=== PATIENT | female | born 1960 | race Caucasian/White ===

== ENCOUNTER 2021-01-31 17:36 | Inpatient (IN) | payer OTHER ==
[2021-01-31 18:55] LABS: ALT 22 U/L (4-34); AST 27 U/L (14-36); African American GFR (CKD) >90 (>60 ml/min/1.73 sqM); Albumin 4.5 g/dL (3.5-5.0); Alkaline Phosphatase 131 U/L (38-126); Anion Gap 13 mmol/L; Blood Urea Nitrogen 19 mg/dL (7-17); Calcium 9.8 mg/dL (8.4-10.2); Carbon Dioxide 22 mmol/L (22-30); Chloride 102 mmol/L (98-107); Glucose 182 mg/dL (74-99); Non-African American GFR(CKD) >90 (>60 ml/min/1.73 sqM); Potassium 4.1 mmol/L (3.5-5.1); Sodium 137 mmol/L (137-145); Total Bilirubin 0.5 mg/dL (0.2-1.3); Total Protein 8.1 g/dL (6.3-8.2)
[2021-01-31 18:59] LABS: HGB 14.8 gm/dL (11.4-16.0); MCH 28.3 pg (25.0-35.0); MCHC 33.6 g/dL (31.0-37.0); MCV 84.1 fL (80.0-100.0); Mean Platelet Volume 7.7; Platelet Count 315 k/uL (150-450); RBC 5.23 m/uL (3.80-5.40); RDW 14.8 % (11.5-15.5); WBC 25.2 k/uL (3.8-10.6)
[2021-01-31] MEDS ORDERED: SODIUM CHLORIDE 0.9% 1,000 ML IV STA (20:29)
[2021-01-31] MEDS ORDERED: IBUPROFEN 600 MG TAB PO STA (20:29)
[2021-01-31] MEDS ORDERED: ACETAMINOPHEN TAB 325 MG TAB PO STA (20:29)
[2021-01-31] MEDS ORDERED: DIPH,PERTUS(ACELL)TETVAC-LF 0.5 ML VIAL IM ONE (20:32)
--- NOTE | 2021-01-31 20:39 | ED ---
General Adult HPI - General Chief complaint: Headache Stated complaint: head pain, possible seizure Time Seen by Provider: 01/31/21 20:22 Source: patient, family, RN notes reviewed, old records reviewed Mode of arrival: ambulatory Limitations: no limitations - History of Present Illness Initial comments: 61-year-old female, alert and oriented 4, presents to the emergency room with complaints of 3 days of right-sided occipital parietal headache. She also states that she stepped on a stick in the yard yesterday and now has redness and drainage from the left foot. She has a low-grade fever today. She is a ylx-[id number]-xhnkfqypy diabetic. Family at bedside states that she was supposed to have cervical neck surgery in [place] but now lives in [place]. She did have lumbar sacral spine surgery 6 months ago. No complications. -: days(s) (3) Location: head (Right parietal/occipital) Radiation: non-radiation Severity scale (1-10): 8 Quality: stabbing, sharp Consistency: constant Improves with: none Worsens with: none Associated Symptoms: fever/chills, other (cellulitis left foot) Treatments Prior to Arrival: none - Related Data Allergies Allergy/AdvReac Type Severity Reaction Status Date / Time No Known Allergies Allergy Verified 01/31/21 18:03 Review of Systems ROS Statement: Those systems with pertinent positive or pertinent negative responses have been documented in the HPI. ROS Other: All systems not noted in ROS Statement are negative. Past Medical History Past Medical History: Diabetes Mellitus History of Any Multi-Drug Resistant Organisms: None Reported Additional Past Surgical History / Comment(s): Back surgey Past Psychological History: No Psychological Hx Reported Smoking Status: Never smoker Past Alcohol Use History: None Reported Past Drug Use History: None Reported General Exam Limitations: no limitations General appearance: alert, in no apparent distress Head exam: Present: atraumatic, normocephalic, normal inspection Eye exam: Present: normal appearance, PERRL, EOMI. Absent: scleral icterus, conjunctival injection, periorbital swelling ENT exam: Present: normal exam, normal oropharynx, mucous membranes moist, other ([place] wears hearing aid) Neck exam: Present: normal inspection, full ROM. Absent: tenderness, meningismus, lymphadenopathy Respiratory exam: Present: normal lung sounds bilaterally. Absent: respiratory distress, wheezes, rales, rhonchi, stridor Cardiovascular Exam: Present: tachycardia GI/Abdominal exam: Present: soft, normal bowel sounds. Absent: distended, tenderness, guarding, rebound, rigid Left Foot/Toe exam: Present: tenderness, swelling, erythema, puncture wound (Purulent drainage under third and fourth toes) Neurovascular tendon exam: Present: no vascular compromise. Absent: abnormal cap refill, extremity cold to touch Back exam: Present: normal inspection. Absent: CVA tenderness (R), CVA tend erness (L), muscle spasm, paraspinal tenderness, rash noted Neurological exam: Present: alert, oriented X3, CN II-XII intact Psychiatric exam: Present: anxious Skin exam: Present: warm, dry, intact, normal color. Absent: rash, cyanosis, diaphoretic, petechiae, pallor Course Vital Signs 01/31/21 17:57 Temperature 100.5 F H Pulse Rate 127 H Respiratory 18 Rate Blood Pressure 126/59 O2 Sat by Pulse 98 Oximetry EKG Findings - EKG Results: EKG: sinus rhythm EKG shows: tachycardia (Ventricular rate of 120, CT interval 0.138, QRS of 0.72, QTC 0.486) Medical Decision Making - Medical Decision Making Patient stepped on a stick outside yesterday and has developed a cellulitis with purulent drainage to the left foot. She has a white count of 25 and a temperature of 100.5. This is likely related to the infection. She was given abx and her tetanus was updated. She also is complaining of a headache which she has had in the past. She states that she is due to have a cervical surgery. She does have history of lumbar back surgery in [place]. She has just moved here and does not have a primary care doctor. She'll be admitted to the hospital. Case discussed with Dr. Lopez. - Lab Data Result diagrams: 01/31/21 18:42 01/31/21 18:42 Lab Results 01/31/21 01/31/21 Range/Units 18:42 18:42 WBC 25.2 H (3.8-10.6) k/uL RBC 5.23 (3.80-5.40) m/uL Hgb 14.8 (11.4-16.0) gm/dL Hct 44.0 (34.0-46.0) % MCV 84.1 (80.0-100.0) fL MCH 28.3 (25.0-35.0) pg MCHC 33.6 (31.0-37.0) g/dL RDW 14.8 (11.5-15.5) % Plt Count 315 (150-450) k/uL MPV 7.7 Sodium 137 (137-145) mmol/L Potassium 4.1 (3.5-5.1) mmol/L Chloride 102 (98-107) mmol/L Carbon Dioxide 22 (22-30) mmol/L Anion Gap 13 mmol/L BUN 19 H (7-17) mg/dL Creatinine 0.70 (0.52-1.04) mg/dL Est GFR (CKD-EPI)AfAm >90 (>60 ml/min/1.73 sqM) Est GFR (CKD-EPI)NonAf >90 (>60 ml/min/1.73 sqM) Glucose 182 H (74-99) mg/dL Calcium 9.8 (8.4-10.2) mg/dL Total Bilirubin 0.5 (0.2-1.3) mg/dL AST 27 (14-36) U/L ALT 22 (4-34) U/L Alkaline Phosphatase 131 H (38-126) U/L Total Protein 8.1 (6.3-8.2) g/dL Albumin 4.5 (3.5-5.0) g/dL Disposition Clinical Impression: Cellulitis, Headache Disposition: ADMITTED IP TO THIS [facility] Condition: Fair Referrals: None,Stated [Primary Care Provider] - 1-2 days Decision Date: 01/31/21 Decision Time: 21:29
[2021-01-31] MEDS ORDERED: cefTRIAXone IN SWFI 1,000 MG/10 ML SYRINGE IVP STA (20:41)
[2021-01-31] MEDS ORDERED: VANCOMYCIN IV PER PHARMACY 1 EACH MISC MISCELLANE PRN (21:36)
[2021-01-31] MEDS ORDERED: PIPERACILLIN-TAZOBACTAM 3.375 GM in SODIUM CHLORIDE 0.9% 100 ML IVPB STA (21:36)
[2021-01-31] MEDS ORDERED: NALOXONE 0.4 MG/ML 1 ML VIAL IV PRN (21:38)
[2021-01-31 21:40] LABS: Appearance,Urine Clear (Clear); Bilirubin,Urine Negative (Negative); Blood,Urine Negative (Negative); Color,Urine Light Yellow; Glucose,Urine (UA) 4+ (Negative); Ketones,Urine Negative (Negative); Leukocyte Esterase,Urine Negative (Negative); Mucus,Urine Rare /hpf; Nitrite,Urine Positive (Negative); Protein,Urine Trace (Negative); RBC,Urine 1 /hpf (0-5); Specific Gravity,Urine 1.037 (1.001-1.035); Squamous Epithelial Cell,Urine 1 /hpf (0-4); Urobilinogen,Urine <2.0 mg/dL (<2.0); WBC,Urine 3 /hpf (0-5)
[2021-01-31] MEDS ORDERED: VANCOMYCIN 1,500 MG in SODIUM CHLORIDE 0.9% 250 ML IVPB ONE (21:45)
[2021-01-31] MEDS: SODIUM CHLORIDE 0.9% 1,000 ML IV SCH (22:39)
--- NOTE | 2021-01-31 22:46 | XR ---
EXAMINATION TYPE: XR foot limited LT DATE OF EXAM: 01/31/2021 COMPARISON: NONE HISTORY: Cellulitis TECHNIQUE: 2 views FINDINGS: Metatarsals appear intact. There is deformity of the fifth metatarsal related to old healed fracture. There is some deformity also at the base of the proximal phalanx of the little toe consist ent with an old injury. I see no acute fracture nor dislocation. There is moderate plantar and Achill es calcaneal spurring. There is mild hammertoe deformities. There is some soft tissue swelling of the forefoot. IMPRESSION: Mild soft tissue swelling. Calcaneal spurring. No acute bony abnormality. No sign of oste omyelitis.
[2021-01-31] MEDS ORDERED: MORPHINE SULFATE 4 MG/ML SYRINGE IVP STA (22:53)
--- NOTE | 2021-02-01 00:56 | P.HPIM ---
History of Present Illness H&P Date: 01/31/21 Chief Complaint: left foot swelling and bleeding 61-year-old female with diabetes mellitus. Patient is very hard of hearing and seems to have some pressured speech is little hard to understand however I believe we had a good interview where we covered all her concerns. she recently moved to [place] to stay with her new boyfriend. she has not established medical care. her main complaint are two folds, new headache, right sided, throbbing in nature, denies history of similar headaches, or migraines. started about 3 days ago , ranging in severity from 5-8/10, at the peak of severity she feels her vision gets blurry but denies any other focal neuro deficits. she does have chronic right thenar muscle numbness from carpal tunnel or cyst in the area. otherwise, denies any acute hearing changes, nausea or vomiting, or any other focal neuro deficits. her headaches are so severe, its associated with photophobia, and she feels better when she closes her eyes, she took only tylenols and ibuprofen for it with little help , again never experienced anything similar in the past, denies any history of intracranial pathology except for possible remote "Mild" stroke with no residual deficits she is diabetic, and she got some peripheral neuropathy in her bilateral feet, she was wearing an open shoes walking outside, I could not understand the exact circumstances of where she was ,but she believes a piece of wood or some kind of small stick migh have punctured through her shows and injured the base of her 4th toe, she did not feel it at the time, but after walking inside she noticed bleeding from her toe, she cleaned it , but next day (today ) she woke up to sw elling and erythema of the left foot extending all the way to the ankle , she feels a little pain due to her neuropathy . she reports subjective fever. she also reports some urinary symptoms of frequency and incomplete emptying of her bladder, denies any dysuria or hematuria , but does notice that when she pees only small amount comes out, and she has to go frequently to the bathroom , this has been going on for couple days, mild lower abd discomfort , no new flank pain ,. in the ED workup showed, elevated WBC, fever, LA normal , UA positive for nitrites, foot xray no georges deformity she denies any respiratory symptoms , URI , GI bleed, changes in her bowel habits. Review of Systems Pertinent positives as noted in HPI. All other systems were reviewed and are negative Past Medical History Past Medical History: Diabetes Mellitus History of Any Multi-Drug Resistant Organisms: None Reported Additional Past Surgical History / Comment(s): Back surgey Past Psychological History: No Psychological Hx Reported Smoking Status: Never smoker Past Alcohol Use History: None Reported Past Drug Use History: None Reported - Past Family History family Family Medical History: No Reported History Medications and Allergies Home Medications Medication Instructions Recorded Confirmed Type Alendronate (Unknown Dose) 1 tab PO DIRECTED 01/31/21 01/31/21 History Lantus (Unknown) 1 dose SQ DIRECTED 01/31/21 01/31/21 History metFORMIN HCL [Glucophage] 1,000 mg PO DIRECTED 01/31/21 01/31/21 History Allergies Allergy/AdvReac Type Severity Reaction Status Date / Time No Known Allergies Allergy Verified 01/31/21 18:03 Physical Exam Vitals: Vital Signs Temp Pulse Resp BP Pulse Ox 01/31/21 17:57 100.5 F H 127 H 18 126/59 98 Intake and Output 01/31/21 01/31/21 02/01/21 14:59 22:59 06:59 Other: Weight 81.647 kg Constitutional: No acute distress, conversant, pleasant, hard of hearing, some pressured speech hard to understand at times. Eyes: Anicteric sclerae, moist conjunctiva, Pupils equal round reactive to light ENMT: NC/AT Oropharynx clear, no erythema, or exudates, dry mucus membranes Neck: Supple, no masses, or JVD, no neck stiffness No carotid bruits No thyromegaly Lungs: Clear to auscultation Clear to percussion Normal respiratory effort, no accessory muscle use Cardiovascular: Heart regular in rate and rhythm, soft systolic murmurs, no gallops, or rubs No peripheral edema Abdominal: Soft discomfort to deep palpation of suprapubic region , no guarding, rebound or rigidity Abdomen moving with respiration Normoactive bowel sounds No hepatomegaly, No splenomegaly No palpable mass No abdominal wall hernia noted Skin: swelling and erythema of the left foot to the ankle , tenderness to deep palpation , dried blood at the base of the 4th left toe, could not for sure identify puncture site. no active drainage at this time . Extremities: No digital cyanosis No clubbing Pedal pulses intact and symmetrical Radial pulses intact and symmetrical No calf tenderness Psychiatric: Alert and oriented to person, place and time Appropriate affect fair judgement Neuro Muscles Strength 4/5 in all 4 extremities Sensation to light touch grossly present throughout, some decrease sens ation over bilateral feet Cranial nerves II-XII grossly intact No focal sensory deficits Lymphatics: no palpable cervical or supraclavicular , or inguinal lymph nodes Results CBC & Chem 7: 01/31/21 18:42 01/31/21 18:42 Labs: Abnormal Lab Results - Last 24 Hours (Table) 01/31/21 01/31/21 01/31/21 Range/Units 18:42 18:42 20:54 WBC 25.2 H (3.8-10.6) k/uL BUN 19 H (7-17) mg/dL Glucose 182 H (74-99) mg/dL Alkaline Phosphatase 131 H (38-126) U/L Ur Specific [place] 1.037 H (1.001-1.035) Urine Protein Trace H (Negative) Urine Glucose (UA) 4+ H (Negative) Urine Nitrite Positive H (Negative) Urine Mucus Rare H (None) /hpf Assessment and Plan Assessment: sepsis puncture wound possibly through shoes, to left foot, in diabetic patient blood cultures NSAIDs for pain and swelling once intracranial pathology ruled out with CT brain vanco and zosyn xray of foot no georges patholgy or foreign bodies check ESR, CRP IVF hydaration ID consultation UTI follow up cultures , antibiotics as above new onset headache with blurry vision neuro check s CT brain without contrast , if no acute pathology then will continue with pain control and neuro checks patient does have chronic cervical spine pathology and pain , with planned surgery in the past follow up labs full code DVT PPx mechanical Discussed with: Patient, ER, RN Anticipated length of stay > than [address]: home A total of 75 minutes was spent on the care of this complex patient more than 50% of the time was spent in counseling and care coordination.
--- NOTE | 2021-02-01 02:24 | CT ---
EXAMINATION TYPE: CT brain wo con DATE OF EXAM: 02/01/2021 COMPARISON: None HISTORY: new onset headache with blurry vision CT DLP: 1090.4 mGycm Automated exposure control for dose reduction was used. Ventricles and sulci appear normal. There is no mass effect nor midline shift. There is no sign of in tracranial hemorrhage. Calvarium is intact. Skull base is intact. There is no evidence of cerebral ed marissa. IMPRESSION: Negative unenhanced head CT scan.
[2021-02-01] MEDS ORDERED: PIPERACILLIN-TAZOBACTAM 3.375 GM in SODIUM CHLORIDE 0.9% 100 ML IVPB SCH (08:00)
[2021-02-01] MEDS: VANCOMYCIN 1,500 MG in SODIUM CHLORIDE 0.9% 250 ML IVPB SCH ×3 (08:05→22:19)
[2021-02-01] MEDS: SODIUM CHLORIDE 0.9% 1,000 ML IV SCH ×2 (08:12→12:33)
[2021-02-01] MEDS: ACETAMINOPHEN TAB 325 MG TAB PO PRN ×3 (09:15→22:30)
[2021-02-01 09:26] LABS: HCT 40.3 % (37.2-46.3); HGB 12.6 g/dL (12.0-15.0); MCH 26.7 pg (27.0-32.0); MCHC 31.3 g/dL (32.0-37.0); MCV 85.4 fL (80.0-97.0); Mean Platelet Volume 10.1 fL (9.5-12.2); Platelet Count 286 X 10*3/uL (140-440); RBC 4.72 X 10*6/uL (4.10-5.20); RDW 14.5 % (11.5-14.5); WBC 20.97 X 10*3/uL (4.50-10.00)
[2021-02-01 10:03] LABS: African American GFR (CKD) 93.5 (60.0-200.0); Albumin 3.6 g/dL (3.80-4.90); Albumin/Globulin Ratio 1.38 (1.60-3.17); Anion Gap 9.8 mmol/L (4.00-12.00); Calcium 8.3 mg/dL (8.7-10.3); Carbon Dioxide 24.2 mmol/L (21.6-31.8); Globulin 2.6 g/dL (1.6-3.3); Non-African American GFR(CKD) 80.7 (60.0-200.0); Total Bilirubin 0.5 mg/dL (0.2-1.2); Total Protein 6.2 g/dL (6.2-8.2)
[2021-02-01] MEDS ORDERED: KETOROLAC 15 MG/ML 1 ML VIAL IVP STA (10:45)
[2021-02-01] MEDS ORDERED: ONDANSETRON 4 MG/2 ML VIAL IVP PRN (10:51)
--- NOTE | 2021-02-01 10:51 | P.PN ---
Subjective Progress Note Date: 02/01/21 Patient was seen and evaluated by me this morning. Her main concern this morning was headache mostly in the frontal area. She denies any vision change. She said that her headache is not improved compared to yesterday. Patient denies any history of migraine headache. No nausea or vomiting at this time. No vision change. Objective - Vital Signs Vital signs: Vital Signs Temp 97.8 F 02/01/21 03:00 Pulse 80 02/01/21 06:13 Resp 18 02/01/21 06:13 BP 114/64 02/01/21 06:13 Pulse Ox 97 02/01/21 06:13 Intake & Output 01/31/21 02/01/21 02/01/21 18:59 06:59 18:59 Weight 81.647 kg - Exam General: The patient is awake and alert, in no distress Eye: there is normal conjunctiva bilaterally. Neck: The neck is supple, there is no JVD. Cardiovascular: Normal S1-S2, no S3-S4, no murmurs. Respiratory: Lungs clear to auscultation bilaterally Gastrointestinal: Abdomen is soft, nontender Musculoskeletal: There is no pedal edema. Left foot appears swollen to the ankle. There is a puncture wound on the fourth toe on the plantar aspect. Neurological:. Speech is normal. Skin: Skin is warm and dry - Labs CBC & Chem 7: 02/01/21 04:34 02/01/21 04:34 Labs: Abnormal Lab Results - Last 24 Hours (Table) 01/31/21 01/31/21 01/31/21 Range/Units 18:42 18:42 18:42 WBC 25.2 H (3.8-10.6) k/uL MCH (27.0-32.0) pg MCHC (32.0-37.0) g/dL ESR 42 H (0-20) mm/hr BUN 19 H (7-17) mg/dL Glucose 182 H (74-99) mg/dL Calcium (8.7-10.3) mg/dL Alkaline Phosphatase 131 H (38-126) U/L C-Reactive Protein (<1.0) mg/dL Albumin (3.80-4.90) g/dL Albumin/Globulin Ratio (1.60-3.17) g/dL Ur Specific [place] (1.001-1.035) Urine Protein (Negative) Urine Glucose (UA) (Negative) Urine Nitrite (Negative) Urine Mucus (None) /hpf 01/31/21 01/31/21 02/01/21 Range/Units 18:42 20:54 04:34 WBC 20.97 H (3.8-10.6) k/uL MCH 26.7 L (27.0-32.0) pg MCHC 31.3 L (32.0-37.0) g/dL ESR (0-20) mm/hr BUN (7-17) mg/dL Glucose (74-99) mg/dL Calcium (8.7-10.3) mg/dL Alkaline Phosphatase (38-126) U/L C-Reactive Protein 19.0 H (<1.0) mg/dL Albumin (3.80-4.90) g/dL Albumin/Globulin Ratio (1.60-3.17) g/dL Ur Specific [place] 1.037 H (1.001-1.035) Urine Protein Trace H (Negative) Urine Glucose (UA) 4+ H (Negative) Urine Nitrite Positive H (Negative) Urine Mucus Rare H (None) /hpf 02/01/21 Range/Units 04:34 WBC (3.8-10.6) k/uL MCH (27.0-32.0) pg MCHC (32.0-37.0) g/dL ESR (0-20) mm/hr BUN (7-17) mg/dL Glucose (74-99) mg/dL Calcium 8.3 L (8.7-10.3) mg/dL Alkaline Phosphatase (38-126) U/L C-Reactive Protein (<1.0) mg/dL Albumin 3.60 L (3.80-4.90) g/dL Albumin/Globulin Ratio 1.38 L (1.60-3.17) g/dL Ur Specific [place] (1.001-1.035) Urine Protein (Negative) Urine Glucose (UA) (Negative) Urine Nitrite (Negative) Urine Mucus (None) /hpf Assessment and Plan Assessment: This is a 61-year-old female with past medical history noted below who presented to the emergency room with left foot swelling and a puncture wound. Patient was also complaining of severe headache. Patient was evaluated in the ER and admitted to the hospital for further management of her medical problems noted below. 1. Cellulitis of the left foot with a infected puncture wound to the plantar aspect of the fourth toe: Started on broad-spectrum antibiotic with IV vancomycin and Zosyn. Foot x-ray showed soft tissue swelling. Silvio mondragon consulted for further evaluation. 2. Severe sepsis without septic shock: Treated with aggressive IV fluid hydration and antibiotic. Lactic acid is normal. Blood culture pending. 3. Severe persistent frontal headache, with no known history of migraine. Computed tomography scan in the ER showed no acute findings. Patient received Tylenol and Fioricet with minimal relief. I would consult neurology for further evaluation. I ordered one-time dose of IV Toradol 4. Type 2 diabetes, currently on sliding scale insulin. Blood glucose within acceptable range.
[2021-02-01 12:28] LABS: Glucose,Whole Blood 70 mg/dL (75-99)
[2021-02-01] MEDS: INSULIN ASPART (NovoLOG) 100 UNIT/ML VIAL SQ SCH ×3 (12:29→20:56)
[2021-02-01 14:14] LABS: Basophils # (A) 0.08 X 10*3/uL (0.00-0.10); Basophils % (A) 0.4 %; Eosinophils # (A) 0.03 X 10*3/uL (0.04-0.35); Eosinophils % (A) 0.1 %; Lymphocytes # (A) 2.37 X 10*3/uL (0.90-5.00); Lymphocytes % (A) 11.3 %; Monocytes # (A) 1.27 X 10*3/uL (0.20-1.00); Monocytes % (A) 6.1 %; Neutrophils # (A) 17.12 X 10*3/uL (1.80-7.70); Neutrophils % (A) 81.6 %
[2021-02-01] MEDS ORDERED: CEFEPIME 2 GM in SODIUM CHLORIDE 0.9% 100 ML IVPB ONE (16:00)
[2021-02-01 16:44] LABS: Glucose,Whole Blood 102 mg/dL (75-99)
--- NOTE | 2021-02-01 17:18 | CT ---
EXAMINATION TYPE: CT foot LT w con DATE OF EXAM: 02/01/2021 COMPARISON: Radiograph 01/31/2021 HISTORY: 61-year-old female with pain, Abscess. TECHNIQUE: Contiguous axial scanning of the left foot performed with IV Contrast, patient injected wi th 100 mL of Isovue M300. Coronal/sagittal reconstructions performed. 3-D reconstructions generated o n a dedicated independent workstation. CT DLP: 254.7 mGycm Automated exposure control for dose reduction was used. FINDINGS: There is generalized soft tissue swelling. Mild hammertoes. Some focal soft tissue swelling along the ball of the foot especially at the level of the third and fifth toes. Old healed fracture deformity fifth proximal phalangeal shaft. Bony irregularity along the anterior lateral corner of the calcaneus likely relating to old injury. Old healed fracture deformity of the fifth metatarsal shaft. Some underlying degenerative change at t he calcaneal cuboidal joint and adjacent punctate loose bodies. Small to moderate-sized plantar and posterior heel spurs. No discrete well-defined fluid collection is identified. No soft tissue air or discrete abscess is identified. No osseous erosions to suggest osteoarthritis. IMPRESSION: 1. PROMINENT GENERALIZED SOFT TISSUE SWELLING. SOME AREAS OF FOCAL SOFT TISSUE EDEMA ALONG THE BALL O F THE FOOT ESPECIALLY AT THE LEVEL OF THE THIRD AND FIFTH TOES ARE NONSPECIFIC AND COULD REPRESENT CA LLUS. 2. NO DISCRETE ABSCESS IDENTIFIED. NO SOFT TISSUE AIR SEEN. IF THERE IS PERSISTENT CONCERN, THE EXAM CAN BE REVIEWED WITH DIRECTED ATTENTION.
[2021-02-01 20:50] LABS: Glucose,Whole Blood 111 mg/dL (75-99)
--- NOTE | 2021-02-01 23:01 | P.CONS ---
History of Present Illness - Reason for Consult Consult date: 02/01/21 Puncture wound foot cellulitis Requesting physician: Evelia Bay - Chief Complaint left foot pain x 3 days - History of Present Illness History of present illness : Patient is a 61-year-old female presenting to the ER last night for evaluation of left foot pain swelling and redness that been going on for about 3 days patient mentioned she stepped on a stick in the yard before she noticed to having pain and swelling to the left foot patient described the pain to be throbbing intensity almost 7-8 out of 10 and no radiation with associated swelling redness and started having the fever with the symptoms the patient was evaluated by ER physician on arrival to the ER patient did have a fever of 100.5 F she was tachycardic did have a white count of 25,000 repeat is 20.97 kidney function was normal urine was negative patient did have a x-rays of the left foot shows mild soft tissue swelling no acute abdominal the patient was started on vancomycin and Zosyn admitted to the hospital infectious disease was consulted for further management of antibiotic therapy Review of system: CONSTITUTIONAL: Positive for weakness along with the fever. EYES: No complaint. ENT: No complaint. RESPIRATORY: No complaint. CARDIOVASCULAR: No complaint. GENITOURINARY: No complaint. GASTROINTESTINAL: No complaint. MUSCULOSKELETAL: As per history of present illness. INTEGUMENTARY: No complaint. PSYCHOLOGIC: No complaint. ENDOCRINE: No complaint. NEUROLOGIC: Headache. Past medical history : Reviewed, documented below Past surgical history : Reviewed, documented below Social history: Reviewed, documented below Medications: Reviewed, as documented below GENERAL DESCRIPTION: Middle-aged female lying in bed, no distress. No tachypnea or accessory muscle of respiration use. HEENT: Shows Pallor , no scleral icterus. Oral mucous membrane is dry. NECK: Trachea central, no thyromegaly. LUNGS: Unlabored breathing. Clear to auscultation anteriorly. No wheeze or crack le. HEART: S1, S2, regular rate and rhythm. ABDOMEN: Soft, no tenderness , guarding or rigidity EXTREMITIES: No edema of feet. Left foot did have the swelling and redness especially around her third and fourth toe which is warm and tender to touch but no drainage SKIN: No rash, no masses palpable. NEUROLOGICAL: The patient is awake, alert, oriented x3, mood and affect normal. LABS AND RADIOLOGY: Reviewed results see below Assessment : Patient admitted to hospital with sepsis in this patient who did have a fever elevated white count tachycardia source likely left foot cellulitis in this patient with underlying diabetes mellitus and the patient stepped on something in the yard will need to cover for both gram-positive as well as gram- negative pathogen Plan: 1-obtain a CT of the left foot to make sure no evidence of any abscess or foreign body 2-vancomycin pharmacy to dose her with a target trough of 15 while watching her kidney function and Vanco trough closely. 3-switch Zosyn to cefepime to decrease risk of nephrotoxicity We will follow on clinical condition and cultures to further adjust medication if needed Thank you for this consultation we will follow the patient along with you Past Medical History Past Medical History: Diabetes Mellitus History of Any Multi-Drug Resistant Organisms: None Reported Additional Past Surgical History / Comment(s): Back surgey Past Psychological History: No Psychological Hx Reported Smoking Status: Never smoker Past Alcohol Use History: None Reported Past Drug Use History: None Reported - Past Family History family Family Medical History: No Reported History Medications and Allergies Home Medications Medication Instructions Recorded Confirmed Type Alendronate (Unknown Dose) 1 tab PO DIRECTED 01/31/21 01/31/21 History Lantus (Unknown) 1 dose SQ DIRECTED 01/31/21 01/31/21 History metFORMIN HCL [Glucophage] 1,000 mg PO DIRECTED 01/31/21 01/31/21 History Allergies Allergy/AdvReac Type Severity Reaction Status Date / Time No Known Allergies Allergy Verified 01/31/21 18:03 Physical Exam Vitals: Vital Signs Temp Pulse Resp BP Pulse Ox 02/01/21 06:13 80 18 114/64 97 02/01/21 03:00 97.8 F 77 18 111/56 94 L 01/31/21 20:00 98.8 F 72 18 127/82 96 01/31/21 17:57 100.5 F H 127 H 18 126/59 98 Intake and Output 01/31/21 02/01/21 02/01/21 22:59 06:59 14:59 Other: Weight 81.647 kg G Results CBC & Chem 7: 02/01/21 04:34 02/01/21 04:34 Labs: Abnormal Lab Results - Last 24 Hours (Table) 01/31/21 01/31/21 01/31/21 Range/Units 18:42 18:42 18:42 WBC 25.2 H (3.8-10.6) k/uL ESR 42 H (0-20) mm/hr BUN 19 H (7-17) mg/dL Glucose 182 H (74-99) mg/dL Alkaline Phosphatase 131 H (38-126) U/L C-Reactive Protein (<1.0) mg/dL Ur Specific [place] (1.001-1.035) Urine Protein (Negative) Urine Glucose (UA) (Negative) Urine Nitrite (Negative) Urine Mucus (None) /hpf 01/31/21 01/31/21 Range/Units 18:42 20:54 WBC (3.8-10.6) k/uL ESR (0-20) mm/hr BUN (7-17) mg/dL Glucose (74-99) mg/dL Alkaline Phosphatase (38-126) U/L C-Reactive Protein 19.0 H (<1.0) mg/dL Ur Specific [place] 1.037 H (1.001-1.035) Urine Protein Trace H (Negative) Urine Glucose (UA) 4+ H (Negative) Urine Nitrite Positive H (Negative) Urine Mucus Rare H (None) /hpf
[2021-02-02] MEDS: CEFEPIME 2 GM in SODIUM CHLORIDE 0.9% 100 ML IVPB SCH ×4 (00:41→23:43)
[2021-02-02] MEDS: BUTALB/APAP/CAFF 50-325-40MG TAB PO PRN (04:24)
[2021-02-02] MEDS ORDERED: VANCOMYCIN TROUGH DUE 1 EACH MISC MISCELLANE ONE (06:00)
[2021-02-02 06:12] LABS: African American GFR (CKD) >90 (>60 ml/min/1.73 sqM); Non-African American GFR(CKD) >90 (>60 ml/min/1.73 sqM)
[2021-02-02] MEDS: SODIUM CHLORIDE 0.9% 1,000 ML IV SCH (06:25)
[2021-02-02] MEDS: VANCOMYCIN 1,500 MG in SODIUM CHLORIDE 0.9% 250 ML IVPB SCH ×2 (06:25→15:01)
[2021-02-02 07:58] LABS: Glucose,Whole Blood 67 mg/dL (75-99)
[2021-02-02] MEDS: INSULIN ASPART (NovoLOG) 100 UNIT/ML VIAL SQ SCH ×4 (08:03→21:17)
[2021-02-02 08:22] LABS: Glucose,Whole Blood 93 mg/dL (75-99)
[2021-02-02 08:56] LABS: Basophils # (A) 0.1 k/uL (0-0.2); Basophils % (A) 0 %; Eosinophils # (A) 0.1 k/uL (0-0.7); Eosinophils % (A) 1 %; HCT 36.9 % (34.0-46.0); HGB 12.4 gm/dL (11.4-16.0); Lymphocytes % (A) 13 %; MCH 27.6 pg (25.0-35.0); MCHC 33.5 g/dL (31.0-37.0); MCV 82.3 fL (80.0-100.0); Monocytes # (A) 0.5 k/uL (0-1.0); Monocytes % (A) 4 %; Neutrophils # (A) 12.3 k/uL (1.3-7.7); Neutrophils % (A) 81 %; Platelet Count 308 k/uL (150-450); RBC 4.48 m/uL (3.80-5.40); RDW 14.2 % (11.5-15.5); WBC 15.1 k/uL (3.8-10.6)
[2021-02-02 12:30] LABS: Glucose,Whole Blood 93 mg/dL (75-99)
[2021-02-02] MEDS: PREGABALIN 50 MG CAP PO SCH ×2 (12:55→21:17)
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
--- NOTE | 2021-02-02 15:31 | P.PN ---
Subjective Progress Note Date: 02/02/21 Patient was seen and evaluated by me this morning. Her headache resolved. Right foot swelling and redness is improving compared to yesterday. Objective - Vital Signs Vital signs: Vital Signs Temp 99.3 F 02/02/21 12:30 Pulse 85 02/02/21 12:30 Resp 18 02/02/21 12:30 BP 117/69 02/02/21 12:30 Pulse Ox 99 02/02/21 12:30 Intake & Output 02/01/21 02/02/21 02/02/21 18:59 06:59 18:59 Intake Total 2500 1950 Balance 2500 1950 Intake: Intake, IV Titration 2500 850 Amount Cefepime 2 gm In Sodium 100 Chloride 0.9% 100 ml @ 25 mls/hr IVPB Q8HR [facility] Rx# :[id number] Sodium Chloride 0.9% 1, 2500 500 000 ml @ 50 mls/hr IV . Q20H [facility] Rx#:[id number] Vancomycin 1,500 mg In 250 Sodium Chloride 0.9% 250 ml @ 125 mls/hr IVPB Q8H [facility] Rx#:[id number] Oral 1100 Other: Voiding Method Toilet # Voids 3 2 # Bowel Movements 1 - Exam General: The patient is awake and alert, in no distress Eye: there is normal conjunctiva bilaterally. Neck: The neck is supple, there is no JVD. Cardiovascular: Normal S1-S2, no S3-S4, no murmurs. Respiratory: Lungs clear to auscultation bilaterally Gastrointestinal: Abdomen is soft, nontender Musculoskeletal: There is no pedal edema. Left foot appears swollen to the ankle. There is a puncture wound on the fourth toe on the plantar aspect. Neurological:. Speech is normal. Skin: Skin is warm and dry - Labs CBC & Chem 7: 02/02/21 08:34 02/02/21 05:27 Labs: Abnormal Lab Results - Last 24 Hours (Table) 02/01/21 02/01/21 02/01/21 Range/Units 04:34 16:43 20:48 WBC (3.8-10.6) k/uL Neutrophils # (1.3-7.7) k/uL Creatinine (0.52-1.04) mg/dL POC Glucose (mg/dL) 102 H 111 H (75-99) mg/dL Hemoglobin A1c 8.1 H (4.0-6.0) % 02/02/21 02/02/21 02/02/21 Range/Units 05:27 07:53 08:34 WBC 15.1 H (3.8-10.6) k/uL Neutrophils # 12.3 H (1.3-7.7) k/uL Creatinine 0.51 L (0.52-1.04) mg/dL POC Glucose (mg/dL) 67 L (75-99) mg/dL Hemoglobin A1c (4.0-6.0) % Microbiology - Last 24 Hours (Table) 01/31/21 21:35 Blood Culture - Preliminary Blood No Growth after 24 hours 01/31/21 21:50 Blood Culture - Preliminary Blood No Growth after 24 hours Assessment and Plan Assessment: This is a 61-year-old female with past medical history noted below who presented to the emergency room with left foot swelling and a puncture wound. Patient was also complaining of severe headache. Patient was evaluated in the ER and admitted to the hospital for further management of her medical problems noted below. 1. Cellulitis of the left foot with a infected puncture wound to the plantar aspect of the fourth toe: Started on broad-spectrum antibiotic with IV van comycin and cefepime. Foot x-ray showed soft tissue swelling. Infectious disease consulted for further evaluation. 2. Severe sepsis without septic shock: Treated with aggressive IV fluid hydration and antibiotic. Lactic acid is normal. Blood culture negative to date 3. Severe persistent frontal headache, now resolved. Computed tomography scan in the ER showed no acute findings. 4. Type 2 diabetes, currently on sliding scale insulin. Blood glucose within acceptable range.
[2021-02-02] MEDS: ACETAMINOPHEN TAB 325 MG TAB PO PRN (15:58)
[2021-02-02 17:53] LABS: Glucose,Whole Blood 183 mg/dL (75-99)
--- NOTE | 2021-02-02 18:25 | PN ---
PROGRESS NOTE DATE OF SERVICE: 02/02/2021 REASON FOR FOLLOWUP: Left foot cellulitis. INTERVAL HISTORY: The patient is afebrile. The patient is feeling slightly better today. Overall pain and discomfort to the left foot are slightly decreased. No chest pain, shortness of breath or cough. No abdominal pain or diarrhea. PHYSICAL EXAMINATION: Her blood pressure is 117/69 with a pulse of 85, temperature 99.3. She is 99% on room air. GENERAL DESCRIPTION: General description is a middle-aged female lying in bed in no distress. RESPIRATORY SYSTEM: Unlabored breathing. Clear to auscultation anteriorly. HEART: S1, S2. Regular rate and rhythm. ABDOMEN: Soft. No tenderness. Left foot overall swelling and redness decreased. LABS: Hemoglobin is 12.4, white count 15.1. Blood culture so far negative. CT was negative for any abscess. DIAGNOSTIC IMPRESSION AND PLAN: Patient with left foot cellulitis with no evidence of any abscess. Patient to continue with cefepime. Discontinue vancomycin. Recommend keeping the patient on IV antibiotic another 24 to 48 hours before consideration for oral antibiotics and continue supportive care. MMODL / IJN: [id number] /
[2021-02-02 21:02] LABS: Glucose,Whole Blood 159 mg/dL (75-99)
[2021-02-02 22:03] LABS: Glucose,Whole Blood 147 mg/dL (75-99)
[2021-02-03] MEDS: ACETAMINOPHEN TAB 325 MG TAB PO PRN (04:41)
[2021-02-03 05:15] LABS: Basophils # (A) 0.1 k/uL (0-0.2); Basophils % (A) 1 %; Eosinophils # (A) 0.1 k/uL (0-0.7); Eosinophils % (A) 1 %; HCT 37.3 % (34.0-46.0); HGB 12.4 gm/dL (11.4-16.0); Lymphocytes # (A) 2.2 k/uL (1.0-4.8); Lymphocytes % (A) 17 %; MCH 27.5 pg (25.0-35.0); MCHC 33.2 g/dL (31.0-37.0); MCV 82.8 fL (80.0-100.0); Mean Platelet Volume 7.2; Monocytes # (A) 0.6 k/uL (0-1.0); Monocytes % (A) 5 %; Neutrophils # (A) 9.4 k/uL (1.3-7.7); Neutrophils % (A) 75 %; Platelet Count 306 k/uL (150-450); RBC 4.51 m/uL (3.80-5.40); RDW 14.1 % (11.5-15.5); WBC 12.5 k/uL (3.8-10.6)
[2021-02-03 07:12] LABS: Glucose,Whole Blood 116 mg/dL (75-99)
[2021-02-03] MEDS: INSULIN ASPART (NovoLOG) 100 UNIT/ML VIAL SQ SCH ×4 (07:45→21:15)
[2021-02-03] MEDS: CEFEPIME 2 GM in SODIUM CHLORIDE 0.9% 100 ML IVPB SCH ×3 (08:44→23:45)
[2021-02-03] MEDS: PREGABALIN 50 MG CAP PO SCH (08:44)
[2021-02-03 10:23] LABS: African American GFR (CKD) 109.9 (60.0-200.0); Anion Gap 11.1 mmol/L (4.00-12.00); Calcium 8.5 mg/dL (8.7-10.3); Carbon Dioxide 21.9 mmol/L (21.6-31.8); Non-African American GFR(CKD) 94.8 (60.0-200.0)
[2021-02-03 12:06] LABS: Glucose,Whole Blood 150 mg/dL (75-99)
--- NOTE | 2021-02-03 12:40 | P.PN ---
Subjective Progress Note Date: 02/03/21 This is doing better today. Leukocytosis improving. Objective - Vital Signs Vital signs: Vital Signs Temp 98.8 F 02/03/21 12:22 Pulse 85 02/03/21 12:22 Resp 19 02/03/21 12:22 BP 103/62 02/03/21 12:22 Pulse Ox 98 02/03/21 12:22 Intake & Output 02/02/21 02/03/21 02/03/21 18:59 06:59 18:59 Intake Total 850 100 Balance 850 100 Intake: Intake, IV Titration 850 Amount Cefepime 2 gm In Sodium 100 Chloride 0.9% 100 ml @ 25 mls/hr IVPB Q8HR [facility] Rx# :[id number] Sodium Chloride 0.9% 1, 500 000 ml @ 50 mls/hr IV . Q20H [facility] Rx#:[id number] Vancomycin 1,500 mg In 250 Sodium Chloride 0.9% 250 ml @ 125 mls/hr IVPB Q8H [facility] Rx#:[id number] Oral 100 Other: Voiding Method Toilet Toilet # Voids 2 1 # Bowel Movements 1 - Exam General: The patient is awake and alert, in no distress Eye: there is normal conjunctiva bilaterally. Neck: The neck is supple, there is no JVD. Cardiovascular: Normal S1-S2, no S3-S4, no murmurs. Respiratory: Lungs clear to auscultation bilaterally Gastrointestinal: Abdomen is soft, nontender Musculoskeletal: There is no pedal edema. Left foot appears swollen to the ankle. There is a puncture wound on the fourth toe on the plantar aspect. Neurological:. Speech is normal. Skin: Skin is warm and dry - Labs CBC & Chem 7: 02/03/21 04:44 02/03/21 04:44 Labs: Abnormal Lab Results - Last 24 Hours (Table) 02/02/21 02/02/21 02/02/21 Range/Units 17:52 21:00 21:44 WBC (3.8-10.6) k/uL Neutrophils # (1.3-7.7) k/uL Glucose (70-110) mg/dL POC Glucose (mg/dL) 183 H 159 H 147 H (75-99) mg/dL Calcium (8.7-10.3) mg/dL 02/03/21 02/03/21 02/03/21 Range/Units 04:44 04:44 07:01 WBC 12.5 H (3.8-10.6) k/uL Neutrophils # 9.4 H (1.3-7.7) k/uL Glucose 172 H (70-110) mg/dL POC Glucose (mg/dL) 116 H (75-99) mg/dL Calcium 8.5 L (8.7-10.3) mg/dL 02/03/21 Range/Units 11:55 WBC (3.8-10.6) k/uL Neutrophils # (1.3-7.7) k/uL Glucose (70-110) mg/dL POC Glucose (mg/dL) 150 H (75-99) mg/dL Calcium (8.7-10.3) mg/dL Microbiology - Last 24 Hours (Table) 01/31/21 21:50 Blood Culture - Preliminary Blood No Growth after 48 hours 01/31/21 21:35 Blood Culture - Preliminary Blood No Growth after 48 hours Assessment and Plan Assessment: This is a 61-year-old female with past medical history noted below who presented to the emergency room with left foot swelling and a puncture wound. Patient was also complaining of severe headache. Patient was evaluated in the ER and admitted to the hospital for further management of her medical problems noted below. 1. Cellulitis of the left foot with a infected puncture wound to the plantar aspect of the fourth toe: Started on broad-spectrum antibiotic with IV vancomycin and cefepime. Vancomycin was discontinued. Foot CT showed soft tissue swelling with no evidence of abscess formation. Infectious disease consulted for further evaluation. 2. Severe sepsis without septic shock: Treated with aggressive IV fluid hydration and antibiotic. Lactic acid is normal. Blood culture negative to date 3. Severe persistent frontal headache, now resolved. Computed tomography scan in the ER showed no acute findings. 4. Type 2 diabetes, currently on sliding scale insulin. Blood glucose within acceptable range. Discussed with infectious disease. Patient would benefit of 1 more day of antibiotic.
[2021-02-03 17:32] LABS: Glucose,Whole Blood 155 mg/dL (75-99)
--- NOTE | 2021-02-03 17:48 | PN ---
PROGRESS NOTE DATE OF SERVICE: 02/03/2021 REASON FOR FOLLOW UP: Left foot cellulitis. INTERVAL HISTORY: The patient is afebrile. The patient is feeling better. Breathing comfortably. Overall, left foot pain and swelling has slightly decreased. Still having pain on walking. No chest pain, shortness of breath or cough. No abdominal pain or diarrhea. PHYSICAL EXAMINATION: Blood pressure 103/62 with a pulse of 85, temperature is 98.8. She is 98% on room air. General description is a middle-aged female lying in bed in no distress. Respiratory system: Unlabored breathing, clear to auscultation anteriorly. Heart S1, S2. Regular rate and rhythm. Abdomen soft, no tenderness. Left foot swelling has slightly decreased. LABS: Hemoglobin is 12.4, white count 12.5. DIAGNOSTIC IMPRESSION AND PLAN: Patient with left foot cellulitis continue with IV antibiotic for 48 hours before transition to discharge, continue cefepime and monitor clinical course closely. MMODL / IJN: [id number] / MTDD
[2021-02-03 20:58] LABS: Glucose,Whole Blood 173 mg/dL (75-99)
[2021-02-03] MEDS: PREGABALIN 75 MG CAP PO SCH (21:15)
[2021-02-04] MEDS: ACETAMINOPHEN TAB 325 MG TAB PO PRN (03:51)
[2021-02-04 06:13] LABS: Basophils # (A) 0.1 k/uL (0-0.2); Basophils % (A) 1 %; Eosinophils # (A) 0.1 k/uL (0-0.7); Eosinophils % (A) 1 %; HCT 38.7 % (34.0-46.0); HGB 12.7 gm/dL (11.4-16.0); Lymphocytes # (A) 2.7 k/uL (1.0-4.8); Lymphocytes % (A) 21 %; MCH 27.2 pg (25.0-35.0); MCHC 32.7 g/dL (31.0-37.0); Mean Platelet Volume 7.1; Monocytes # (A) 0.7 k/uL (0-1.0); Monocytes % (A) 5 %; Neutrophils # (A) 9.1 k/uL (1.3-7.7); Neutrophils % (A) 71 %; Platelet Count 353 k/uL (150-450); RBC 4.66 m/uL (3.80-5.40); RDW 14.2 % (11.5-15.5); WBC 12.8 k/uL (3.8-10.6)
[2021-02-04 07:36] LABS: Glucose,Whole Blood 146 mg/dL (75-99)
[2021-02-04] MEDS: PREGABALIN 75 MG CAP PO SCH ×2 (09:38→20:56)
[2021-02-04] MEDS: INSULIN ASPART (NovoLOG) 100 UNIT/ML VIAL SQ SCH ×4 (09:38→20:56)
[2021-02-04] MEDS: CEFEPIME 2 GM in SODIUM CHLORIDE 0.9% 100 ML IVPB SCH ×3 (09:39→23:51)
[2021-02-04 12:17] LABS: Glucose,Whole Blood 143 mg/dL (75-99)
--- NOTE | 2021-02-04 14:39 | P.PN ---
Subjective Progress Note Date: 02/04/21 Patient is doing the same compared to yesterday. No significant improvement in her foot. Leukocytosis about the same. No documented fevers in the last 24 hours. Objective - Vital Signs Vital signs: Vital Signs Temp 98.2 F 02/04/21 13:00 Pulse 82 02/04/21 13:00 Resp 17 02/04/21 13:00 BP 113/72 02/04/21 13:00 Pulse Ox 100 02/04/21 13:00 Intake & Output 02/03/21 02/04/21 02/04/21 18:59 06:59 18:59 Intake Total 700 Balance 700 Intake: Intake, IV Titration 100 Amount Cefepime 2 gm In Sodium 100 Chloride 0.9% 100 ml @ 25 mls/hr IVPB Q8HR [facility] Rx# :[id number] Oral 600 Other: Voiding Method Toilet Toilet Toilet # Voids 2 - Exam General: The patient is awake and alert, in no distress Eye: there is normal conjunctiva bilaterally. Neck: The neck is supple, there is no JVD. Cardiovascular: Normal S1-S2, no S3-S4, no murmurs. Respiratory: Lungs clear to auscultation bilaterally Gastrointestinal: Abdomen is soft, nontender Musculoskeletal: There is no pedal edema. Left foot appears swollen to the ankle. There is a puncture wound on the fourth toe on the plantar aspect. Neurological:. Speech is normal. Skin: Skin is warm and dry - Labs CBC & Chem 7: 02/04/21 05:59 02/03/21 04:44 Labs: Abnormal Lab Results - Last 24 Hours (Table) 02/03/21 02/03/21 02/04/21 Range/Units 17:31 20:42 05:59 WBC 12.8 H (3.8-10.6) k/uL Neutrophils # 9.1 H (1.3-7.7) k/uL POC Glucose (mg/dL) 155 H 173 H (75-99) mg/dL 02/04/21 02/04/21 Range/Units 07:35 12:15 WBC (3.8-10.6) k/uL Neutrophils # (1.3-7.7) k/uL POC Glucose (mg/dL) 146 H 143 H (75-99) mg/dL Microbiology - Last 24 Hours (Table) 01/31/21 21:50 Blood Culture - Preliminary Blood No Growth after 72 hours 01/31/21 21:35 Blood Culture - Preliminary Blood No Growth after 72 hours Assessment and Plan Assessment: This is a 61-year-old female with past medical history noted below who presented to the emergency room with left foot swelling and a puncture wound. Patient was also complaining of severe headache. Patient was evaluated in the ER and admitted to the hospital for further management of her medical problems noted below. 1. Cellulitis of the left foot with a infected puncture wound to the plantar aspect of the fourth toe: Started on broad-spectrum antibiotic with IV vancomy christoph and cefepime. Vancomycin was discontinued. Foot CT showed soft tissue swelling with no evidence of abscess formation. Infectious disease consulted for further evaluation. 2. Severe sepsis without septic shock: Treated with aggressive IV fluid hydration and antibiotic. Lactic acid is normal. Blood culture negative to date 3. Severe persistent frontal headache, now resolved. Computed tomography scan in the ER showed no acute findings. 4. Type 2 diabetes, currently on sliding scale insulin. Blood glucose within acceptable range. Continue current regimen otherwise. Awaiting further recommendations from infectious disease.
[2021-02-04] MEDS ORDERED: CYANOCOBALAMIN 1,000 MCG/ML 1 ML VIAL IM ONE (15:01)
--- NOTE | 2021-02-04 15:01 | P.PN ---
Subjective Progress Note Date: 02/03/21 Patient was seen for a follow-up. Patient states her occipital headache has much improved. It used to be 10/10, but now has dropped down to 4-5/10. Denies any side effects of medication. Objective - Vital Signs Vital signs: Vital Signs Temp 98.8 F 02/03/21 12:22 Pulse 85 02/03/21 12:22 Resp 19 02/03/21 12:22 BP 103/62 02/03/21 12:22 Pulse Ox 98 02/03/21 12:22 Intake & Output 02/02/21 02/03/21 02/03/21 18:59 06:59 18:59 Intake Total 850 100 Balance 850 100 Intake: Intake, IV Titration 850 Amount Cefepime 2 gm In Sodium 100 Chloride 0.9% 100 ml @ 25 mls/hr IVPB Q8HR [facility] [place] Rx# :[id number] Sodium Chloride 0.9% 1, 500 000 ml @ 50 mls/hr IV . Q20H [facility] Rx#:[id number] Vancomycin 1,500 mg In 250 Sodium Chloride 0.9% 250 ml @ 125 mls/hr IVPB Q8H [facility] Rx#:[id number] Oral 100 Other: Voiding Method Toilet Toilet # Voids 2 1 # Bowel Movements 1 - Exam No change. - Labs CBC & Chem 7: 02/04/21 05:59 02/03/21 04:44 Labs: Abnormal Lab Results - Last 24 Hours (Table) 02/02/21 02/02/21 02/02/21 Range/Units 17:52 21:00 21:44 WBC (3.8-10.6) k/uL Neutrophils # (1.3-7.7) k/uL Glucose (70-110) mg/dL POC Glucose (mg/dL) 183 H 159 H 147 H (75-99) mg/dL Calcium (8.7-10.3) mg/dL 02/03/21 02/03/21 02/03/21 Range/Units 04:44 04:44 07:01 WBC 12.5 H (3.8-10.6) k/uL Neutrophils # 9.4 H (1.3-7.7) k/uL Glucose 172 H (70-110) mg/dL POC Glucose (mg/dL) 116 H (75-99) mg/dL Calcium 8.5 L (8.7-10.3) mg/dL 02/03/21 Range/Units 11:55 WBC (3.8-10.6) k/uL Neutrophils # (1.3-7.7) k/uL Glucose (70-110) mg/dL POC Glucose (mg/dL) 150 H (75-99) mg/dL Calcium (8.7-10.3) mg/dL Microbiology - Last 24 Hours (Table) 01/31/21 21:50 Blood Culture - Preliminary Blood No Growth after 48 hours 01/31/21 21:35 Blood Culture - Preliminary Blood No Growth after 48 hours Assessment and Plan Assessment: * Probable occipital neuralgia bilateral. Could be an aspect of diabetic neuropathy * Diabetes with diabetic neuropathy * Hard of hearing Plan: * Increase Lyrica to 75 mg twice a day. Possible side effects discussed. * The dose of Lyrica can be increased gradually as tolerated to maximize the benefit. * Optimize control of diabetes. * Suggest patient follow up with neurologist as an outpatient. * Await B12 and folate levels. * We will follow.
--- NOTE | 2021-02-04 16:40 | PN ---
PROGRESS NOTE DATE OF SERVICE: 02/04/2021 REASON FOR FOLLOWUP: Left foot cellulitis. INTERVAL HISTORY: The patient is afebrile. The patient is feeling better, breathing comfortably. Overall pain and discomfort to the left foot have slightly decreased. No chest pain, shortness of breath or cough. No abdominal pain or diarrhea. PHYSICAL EXAMINATION: Blood pressure 113/72 with a pulse of 82, temperature 98.2. She is 100% on room air. GENERAL DESCRIPTION: General description is a middle-aged female lying in bed in no distress. RESPIRATORY SYSTEM: Unlabored breathing. Clear to auscultation anteriorly. HEART: S1, S2. Regular rate and rhythm. ABDOMEN: Soft. No tenderness. Left foot swelling and redness mildly decreased. No worsening. No fluctuation. No drainage. LABS: Hemoglobin is 12.3, white count 12.8. Blood cultures have been negative. DIAGNOSTIC IMPRESSION AND PLAN: Patient with left foot cellulitis and there was a concern for possible abscess. However, CT was negative. The patient is slowly responding to cefepime, possibly because of the burden of disease. That will be continued for another 24 hours before transitioning the antibiotic. RN has been advised to tone the area of the redness and a light Edd wrap to keep some of the swelling down. Will re-evaluate the patient tomorrow. at the bedside. Multiple questions and concerns were answered in layman's terms. MMODL / IJN: [id number] /
[2021-02-04 17:33] LABS: Glucose,Whole Blood 201 mg/dL (75-99)
[2021-02-04] MEDS: BUTALB/APAP/CAFF 50-325-40MG TAB PO PRN (18:38)
[2021-02-04 20:54] LABS: Glucose,Whole Blood 238 mg/dL (75-99)
[2021-02-04] MEDS ORDERED: HYDROcodone/APAP 5-325MG 1 EACH TAB PO STA (22:10)
[2021-02-05] MEDS: ACETAMINOPHEN TAB 325 MG TAB PO PRN ×2 (04:07→19:59)
[2021-02-05 06:43] LABS: Basophils # (A) 0.1 k/uL (0-0.2); Basophils % (A) 1 %; Eosinophils # (A) 0.2 k/uL (0-0.7); Eosinophils % (A) 1 %; HCT 37.5 % (34.0-46.0); HGB 12.6 gm/dL (11.4-16.0); Lymphocytes # (A) 2.3 k/uL (1.0-4.8); Lymphocytes % (A) 15 %; MCH 27.3 pg (25.0-35.0); MCHC 33.5 g/dL (31.0-37.0); MCV 81.5 fL (80.0-100.0); Mean Platelet Volume 6.9; Monocytes # (A) 0.8 k/uL (0-1.0); Monocytes % (A) 5 %; Neutrophils # (A) 11.7 k/uL (1.3-7.7); Neutrophils % (A) 76 %; Platelet Count 407 k/uL (150-450); RDW 13.6 % (11.5-15.5); WBC 15.3 k/uL (3.8-10.6)
[2021-02-05 07:17] LABS: Glucose,Whole Blood 172 mg/dL (75-99)
[2021-02-05] MEDS: INSULIN ASPART (NovoLOG) 100 UNIT/ML VIAL SQ SCH ×4 (08:13→20:48)
[2021-02-05] MEDS: PREGABALIN 75 MG CAP PO SCH ×2 (08:13→20:48)
[2021-02-05] MEDS: CEFEPIME 2 GM in SODIUM CHLORIDE 0.9% 100 ML IVPB SCH (08:14)
--- NOTE | 2021-02-05 08:30 | P.PN ---
Subjective Progress Note Date: 02/04/21 02/04/2021: This is a Tele-neurology follow performed on the patient today on 02/04/2021. Patient states she is doing much better. Higher doses of Lyrica is helping. Denies any side effect of Lyrica. No neurological complaints. Patient states her occipital headache has much improved. It used to be 10/10, has dropped down to 4-5/10 yesterday, and today is 3/10. Denies any side effects of medication. Objective - Vital Signs Vital signs: Vital Signs Temp 99.1 F 02/05/21 04:16 Pulse 79 02/05/21 04:16 Resp 18 02/05/21 04:16 BP 100/62 02/05/21 04:16 Pulse Ox 95 02/05/21 04:16 Intake & Output 02/04/21 02/05/21 02/05/21 18:59 06:59 18:59 Intake Total 900 700 Balance 900 700 Intake: Intake, IV Titration 100 100 Amount Cefepime 2 gm In Sodium 100 100 Chloride 0.9% 100 ml @ 25 mls/hr IVPB Q8HR [facility] Rx# :[id number] Oral 800 600 Other: Voiding Method Toilet Toilet # Voids 2 2 - Exam No change. - Labs CBC & Chem 7: 02/05/21 06:27 02/03/21 04:44 Labs: Abnormal Lab Results - Last 24 Hours (Table) 02/04/21 02/04/21 02/04/21 Range/Units 12:15 17:32 20:53 WBC (3.8-10.6) k/uL Neutrophils # (1.3-7.7) k/uL POC Glucose (mg/dL) 143 H 201 H 238 H (75-99) mg/dL 02/05/21 02/05/21 Range/Units 06:27 07:16 WBC 15.3 H (3.8-10.6) k/uL Neutrophils # 11.7 H (1.3-7.7) k/uL POC Glucose (mg/dL) 172 H (75-99) mg/dL Microbiology - Last 24 Hours (Table) 01/31/21 21:50 Blood Culture - Preliminary Blood No Growth after 96 hours 01/31/21 21:35 Blood Culture - Preliminary Blood No Growth after 96 hours Assessment and Plan Assessment: * Probable occipital neuralgia bilateral. Could be an aspect of diabetic neuropathy * Diabetes with diabetic neuropathy * Hard of hearing Plan: * Continue Lyrica to 75 mg twice a day. Possible side effects discussed. * The dose of Lyrica can be increased gradually as tolerated to maximize the benefit. * Optimize control of diabetes. * Suggest patient follow up with neurologist as an outpatient. * B12 borderline [phone] ([phone]). Patient was given B12 1000 g injection 1. She'll be started on B12 1000 g orally daily. Her folate levels were canceled. * We will sign off. Please reconsult neurology if any concerns.
[2021-02-05 09:30] LABS: African American GFR (CKD) 115.6 (60.0-200.0); Anion Gap 9.6 mmol/L (4.00-12.00); BUN/Creat Ratio 28.33 Ratio (12.00-20.00); Calcium 8.5 mg/dL (8.7-10.3); Carbon Dioxide 24.4 mmol/L (21.6-31.8); Non-African American GFR(CKD) 99.8 (60.0-200.0); Potassium 4.2 mmol/L (3.5-5.5)
[2021-02-05 12:13] LABS: Glucose,Whole Blood 248 mg/dL (75-99)
--- NOTE | 2021-02-05 12:59 | P.PN ---
Subjective Progress Note Date: 02/05/21 Patient is doing the same compared to yesterday. No significant improvement in her foot. Objective - Vital Signs Vital signs: Vital Signs Temp 99.1 F 02/05/21 04:16 Pulse 79 02/05/21 04:16 Resp 18 02/05/21 04:16 BP 100/62 02/05/21 04:16 Pulse Ox 95 02/05/21 04:16 Intake & Output 02/04/21 02/05/21 02/05/21 18:59 06:59 18:59 Intake Total 900 700 Balance 900 700 Intake: Intake, IV Titration 100 100 Amount Cefepime 2 gm In Sodium 100 100 Chloride 0.9% 100 ml @ 25 mls/hr IVPB Q8HR [facility] Rx# :[id number] Oral 800 600 Other: Voiding Method Toilet Toilet Toilet # Voids 2 2 - Exam General: The patient is awake and alert, in no distress Eye: there is normal conjunctiva bilaterally. Neck: The neck is supple, there is no JVD. Cardiovascular: Normal S1-S2, no S3-S4, no murmurs. Respiratory: Lungs clear to auscultation bilaterally Gastrointestinal: Abdomen is soft, nontender Musculoskeletal: There is no pedal edema. Left foot appears swollen to the ankle. There is a puncture wound on the fourth toe on the plantar aspect. Neurological:. Speech is normal. Skin: Skin is warm and dry - Labs CBC & Chem 7: 02/05/21 06:27 02/05/21 06:27 Labs: Abnormal Lab Results - Last 24 Hours (Table) 02/04/21 02/04/21 02/05/21 Range/Units 17:32 20:53 06:27 WBC 15.3 H (3.8-10.6) k/uL Neutrophils # 11.7 H (1.3-7.7) k/uL BUN/Creatinine Ratio (12.00-20.00) Ratio Glucose (70-110) mg/dL POC Glucose (mg/dL) 201 H 238 H (75-99) mg/dL Calcium (8.7-10.3) mg/dL 02/05/21 02/05/21 02/05/21 Range/Units 06:27 07:16 12:12 WBC (3.8-10.6) k/uL Neutrophils # (1.3-7.7) k/uL BUN/Creatinine Ratio 28.33 H (12.00-20.00) Ratio Glucose 176 H (70-110) mg/dL POC Glucose (mg/dL) 172 H 248 H (75-99) mg/dL Calcium 8.5 L (8.7-10.3) mg/dL Microbiology - Last 24 Hours (Table) 01/31/21 21:50 Blood Culture - Preliminary Blood No Growth after 96 hours 01/31/21 21:35 Blood Culture - Preliminary Blood No Growth after 96 hours Assessment and Plan Assessment: This is a 61-year-old female with past medical history noted below who presented to the emergency room with left foot swelling and a puncture wound. Patient was also complaining of severe headache. Patient was evaluated in the ER and admitted to the hospital for further management of her medical problems noted below. 1. Cellulitis of the left foot with a infected puncture wound to the plantar aspect of the fourth toe: Started on broad-spectrum antibiotic with IV vanco mycin and cefepime. Vancomycin was discontinued. Foot CT showed soft tissue swelling with no evidence of abscess formation. Infectious disease consulted for further evaluation. 2. Severe sepsis without septic shock: Treated with aggressive IV fluid hydration and antibiotic. Lactic acid is normal. Blood culture negative to date 3. Severe persistent frontal headache, now resolved. Computed tomography scan in the ER showed no acute findings. 4. Type 2 diabetes, currently on sliding scale insulin. Blood glucose within acceptable range. Continue current regimen otherwise. Awaiting further recommendations from infectious disease.
[2021-02-05] MEDS: CYANOCOBALAMIN 500 MCG TAB PO SCH (13:37)
[2021-02-05] MEDS ORDERED: VANCOMYCIN IV PER PHARMACY 1 EACH MISC MISCELLANE PRN (15:28)
[2021-02-05 17:35] LABS: Glucose,Whole Blood 342 mg/dL (75-99)
[2021-02-05] MEDS: VANCOMYCIN 1,500 MG in SODIUM CHLORIDE 0.9% 250 ML IVPB SCH (18:23)
--- NOTE | 2021-02-05 19:20 | PN ---
PROGRESS NOTE DATE OF SERVICE: 02/05/2021 REASON FOR FOLLOWUP: Left foot cellulitis. INTERVAL HISTORY: The patient is afebrile. The patient is breathing comfortably. The patient's left foot swelling and redness do not have significant improvement. The patient denies having any chest pain or shortness of breath or cough. No abdominal pain or diarrhea. PHYSICAL EXAMINATION: Blood pressure 114/63 with a pulse of 87, temperature 97.5. She is 99% on room air. GENERAL DESCRIPTION: General description is a middle-aged female up in the bed in no distress. RESPIRATORY SYSTEM: Unlabored breathing. Clear to auscultation anteriorly. HEART: S1, S2. Regular rate and rhythm. ABDOMEN: Soft. No tenderness. Left foot swelling and redness have minimally improved. LABS: Hemoglobin is 12.6, white count 15.3. DIAGNOSTIC IMPRESSION AND PLAN: Patient with left foot cellulitis in this patient who did not have a very good response to the cefepime. White count is trending up. We will switch her over to vancomycin and re-evaluate the patient tomorrow. Continue supportive care. MMODL / IJN: [id number] /
[2021-02-05 20:44] LABS: Glucose,Whole Blood 353 mg/dL (75-99)
[2021-02-06] MEDS: VANCOMYCIN 1,500 MG in SODIUM CHLORIDE 0.9% 250 ML IVPB SCH ×3 (01:49→18:23)
[2021-02-06 05:31] LABS: Basophils # (A) 0.1 k/uL (0-0.2); Basophils % (A) 1 %; Eosinophils # (A) 0.2 k/uL (0-0.7); Eosinophils % (A) 1 %; HCT 37.5 % (34.0-46.0); Lymphocytes # (A) 2.9 k/uL (1.0-4.8); Lymphocytes % (A) 19 %; MCH 26.5 pg (25.0-35.0); MCHC 31.9 g/dL (31.0-37.0); Mean Platelet Volume 7.3; Monocytes # (A) 0.7 k/uL (0-1.0); Monocytes % (A) 5 %; Neutrophils # (A) 10.9 k/uL (1.3-7.7); Neutrophils % (A) 72 %; Platelet Count 405 k/uL (150-450); RBC 4.51 m/uL (3.80-5.40); RDW 14.4 % (11.5-15.5); WBC 15.1 k/uL (3.8-10.6)
[2021-02-06 08:09] LABS: Glucose,Whole Blood 188 mg/dL (75-99)
[2021-02-06] MEDS: PREGABALIN 75 MG CAP PO SCH ×2 (08:33→23:09)
[2021-02-06] MEDS: INSULIN ASPART (NovoLOG) 100 UNIT/ML VIAL SQ SCH ×4 (08:33→22:41)
[2021-02-06] MEDS: CYANOCOBALAMIN 500 MCG TAB PO SCH (08:33)
[2021-02-06] MEDS: ACETAMINOPHEN TAB 325 MG TAB PO PRN (08:37)
[2021-02-06] MEDS ORDERED: LIDOCAINE 1% INJ 10MG/ML (20 ML MDV) ONE (11:45)
[2021-02-06 12:07] LABS: Glucose,Whole Blood 186 mg/dL (75-99)
--- NOTE | 2021-02-06 12:55 | P.PN ---
Subjective Progress Note Date: 02/06/21 Patient is doing the same compared to yesterday. No significant improvement in her foot. White count is not improving either. Objective - Vital Signs Vital signs: Vital Signs Temp 98.2 F 02/06/21 11:47 Pulse 76 02/06/21 11:47 Resp 18 02/06/21 11:47 BP 113/68 02/06/21 11:47 Pulse Ox 96 02/06/21 11:47 Intake & Output 02/05/21 02/06/21 02/06/21 18:59 06:59 18:59 Intake Total 1250 Balance 1250 Intake: Intake, IV Titration 250 Amount Vancomycin 1,500 mg In 250 Sodium Chloride 0.9% 250 ml @ 125 mls/hr IVPB Q8H [facility] Rx#:[id number] Oral 1000 Other: Voiding Method Toilet Toilet Toilet # Voids 2 2 1 - Exam General: The patient is awake and alert, in no distress Eye: there is normal conjunctiva bilaterally. Neck: The neck is supple, there is no JVD. Cardiovascular: Normal S1-S2, no S3-S4, no murmurs. Respiratory: Lungs clear to auscultation bilaterally Gastrointestinal: Abdomen is soft, nontender Musculoskeletal: There is no pedal edema. Left foot appears swollen to the ankle. There is a puncture wound on the fourth toe on the plantar aspect. Neurological:. Speech is normal. Skin: Skin is warm and dry - Labs CBC & Chem 7: 02/06/21 04:50 02/05/21 06:27 Labs: Abnormal Lab Results - Last 24 Hours (Table) 02/05/21 02/05/21 02/06/21 Range/Units 17:34 20:40 04:50 WBC 15.1 H (3.8-10.6) k/uL Neutrophils # 10.9 H (1.3-7.7) k/uL POC Glucose (mg/dL) 342 H 353 H (75-99) mg/dL 02/06/21 02/06/21 Range/Units 08:05 12:03 WBC (3.8-10.6) k/uL Neutrophils # (1.3-7.7) k/uL POC Glucose (mg/dL) 188 H 186 H (75-99) mg/dL Microbiology - Last 24 Hours (Table) 01/31/21 21:35 Blood Culture - Preliminary Blood No Growth after 120 hours 01/31/21 21:50 Blood Culture - Preliminary Blood No Growth after 120 hours Assessment and Plan Assessment: This is a 61-year-old female with past medical history noted below who presented to the emergency room with left foot swelling and a puncture wound. Patient was also complaining of severe headache. Patient was evaluated in the ER and admitted to the hospital for further management of her medical problems noted below. 1. Cellulitis of the left foot with a infected puncture wound to the plantar as pect of the fourth toe: Started on broad-spectrum antibiotic with IV vancomycin and cefepime. Vancomycin was discontinued. Then yesterday ID discontinued cefepime and resumed vancomycin. Foot CT showed soft tissue swelling with no evidence of abscess formation. Infectious disease consulted for further evaluation. There is concerns by ID about possible abscess formation and vascular surgery consulted for further evaluation 2. Severe sepsis without septic shock: Treated with aggressive IV fluid hydration and antibiotic. Lactic acid is normal. Blood culture negative to date 3. Severe persistent frontal headache, now resolved. Computed tomography scan in the ER showed no acute findings. 4. Type 2 diabetes, currently on sliding scale insulin. Blood glucose not well controlled. A1c 8.1%. I would add Levemir 10 units daily to her regimen Continue current regimen otherwise. Awaiting further recommendations from vascular surgery
--- NOTE | 2021-02-06 13:16 | P.GSCN ---
History of Present Illness History of present illness: 61-year-old male patient came to the emergency room with the trauma to the left foot with the marked tenderness and swelling with the fever and I will elect cell count patient was started on IV antibiotic and a care of infectious disease. I was consulted for I&D of the wound and there wound debridement patient has a marked redness and there swelling of the left foot dorsum aspect with some fluctuation and there is a third toe has a infection and drainage noted there is drainage of pus noted from the third toe and also tenderness noted on the dorsal aspect of the foot. Medical history history of diabetes Neck examination neck is supple no bruit appreciated Chest is clear first and second sound normal Abdomen soft nontender Femorals palpable PT 1+ patient has a marked redness and tenderness of the left foot with there are infection and pus coming out of the third toe plan is a debridement of the wound and I&D of the wound and a possible third toe amputation risk and complication discussed thank you Past Medical History Past Medical History: CVA/TIA, Diabetes Mellitus Additional Past Medical History / Comment(s): osteoporosis, neuropathy History of Any Multi-Drug Resistant Organisms: None Reported Additional Past Surgical History / Comment(s): Back surgey r/t fracture 6 months ago, ovarian cysts removed, patient also states 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 Past Anesthesia/Blood Transfusion Reactions: No Reported Reaction Past Psychological History: Anxiety Smoking Status: Never smoker Past Alcohol Use History: None Reported Past Drug Use History: None Reported - Past Family History family Family Medical History: No Reported History Medications and Allergies Home Medications Medication Instructions Recorded Confirmed Type Alendronate (Unknown Dose) 1 tab PO DIRECTED 01/31/21 01/31/21 History Lantus (Unknown) 1 dose SQ DIRECTED 01/31/21 01/31/21 History metFORMIN HCL [Glucophage] 1,000 mg PO DIRECTED 01/31/21 01/31/21 History Allergies Allergy/AdvReac Type Severity Reaction Status Date / Time No Known Allergies Allergy Verified 01/31/21 18:03 Surgical - Exam Vital Signs Temp Pulse Resp BP Pulse Ox 100.5 F H 127 H 18 126/59 98 01/31/21 17:57 01/31/21 17:57 01/31/21 17:57 01/31/21 17:57 01/31/21 17:57 Results - Labs 02/06/21 04:50 02/05/21 06:27 Abnormal Lab Results - Last 24 Hours (Table) 02/05/21 02/05/21 02/06/21 Range/Units 17:34 20:40 04:50 WBC 15.1 H (3.8-10.6) k/uL Neutrophils # 10.9 H (1.3-7.7) k/uL POC Glucose (mg/dL) 342 H 353 H (75-99) mg/dL 02/06/21 02/06/21 Range/Units 08:05 12:03 WBC (3.8-10.6) k/uL Neutrophils # (1.3-7.7) k/uL POC Glucose (mg/dL) 188 H 186 H (75-99) mg/dL Microbiology - Last 24 Hours (Table) 01/31/21 21:35 Blood Culture - Preliminary Blood No Growth after 120 hours 01/31/21 21:50 Blood Culture - Preliminary Blood No Growth after 120 hours
--- NOTE | 2021-02-06 13:55 | PN ---
PROGRESS NOTE DATE OF SERVICE: 02/06/2021 REASON FOR FOLLOWUP: Left foot abscess and cellulitis. INTERVAL HISTORY: The patient is afebrile. The patient is breathing comfortably. Left foot with some pain and swelling, but no worsening. No chest pain, shortness of breath or cough. No abdominal pain or diarrhea. PHYSICAL EXAMINATION: Blood pressure 121/69 with a pulse of 81, temperature 98.2. She is 96% on room air. GENERAL DESCRIPTION: General description is a middle-aged female up in the bed in no distress. RESPIRATORY SYSTEM: Unlabored breathing. Clear to auscultation anteriorly. HEART: S1, S2. Regular rate and rhythm. ABDOMEN: Soft. No tenderness. Left foot did have swelling. There was a small amount of purulent drainage on pressure. Cultures were obtained. LABS: Hemoglobin is 12 with a white count of 15.1. DIAGNOSTIC IMPRESSION AND PLAN: Patient with left foot abscess and cellulitis. Unfortunately the abscess was not seen on the CT. The patient is not responding very well to antibiotic therapy. Culture has been obtained. That will guide further antibiotic. Will get a vascular surgery evaluation for I and D and deep cultures. Continue with supportive care. Questions and concerns were answered. Plan was discussed with the admitting physician. MMFREDDY / ELYSIAN: [id number] /
[2021-02-06] MEDS: INSULIN DETEMIR (LEVEMIR) 100 UNIT/ML SYR SQ SCH (14:10)
[2021-02-06 16:32] LABS: African American GFR (CKD) 115.6 (60.0-200.0); Anion Gap 9.8 mmol/L (4.00-12.00); C Reactive Protein 9.7 mg/dL (0.0-0.8); Calcium 9.3 mg/dL (8.7-10.3); Carbon Dioxide 23.2 mmol/L (21.6-31.8); Non-African American GFR(CKD) 99.8 (60.0-200.0); Potassium 4.4 mmol/L (3.5-5.5)
[2021-02-06 17:24] LABS: Glucose,Whole Blood 122 mg/dL (75-99)
[2021-02-06] MEDS ORDERED: PROPOFOL 10 MG/ML 20 ML VIAL IV ONE (21:18)
[2021-02-06] MEDS ORDERED: KETAMINE 10 MG/ML 20 ML VIAL ONE (21:18)
[2021-02-06] MEDS ORDERED: fentaNYL (PF) 50 MCG/ML 2 ML AMP ONE (21:18)
[2021-02-06] MEDS ORDERED: MIDAZOLAM 2 MG/2 ML VIAL ONE (21:18)
[2021-02-06] MEDS ORDERED: LACTATED RINGERS 1,000 ML IV ONE (21:35)
[2021-02-06] MEDS ORDERED: LIDOCAINE 1% INJ 10MG/ML (20 ML MDV) SQ ONE (21:35)
[2021-02-06 22:19] LABS: Glucose,Whole Blood 120 mg/dL (75-99)
--- NOTE | 2021-02-06 23:39 | OP ---
OPERATIVE REPORT PREOPERATIVE DIAGNOSIS: Wet gangrene of the left third toe with marked redness and drainage from the third toe. POSTOPERATIVE DIAGNOSIS: Wet gangrene of the left third toe with marked redness and drainage from the third toe. OPERATION: Ray amputation of the left leg third toe. DESCRIPTION: This patient brought to the operating room. Left foot was prepped and drapes were applied in usual sterile manner. Under local and IV sedation, elliptical incision was made on the dorsal aspect of the foot, went circumferentially around the third toe and this incision was extended to the plantar aspect of the foot, deepened through the subcutaneous tissue and the fat. Tendons of the third toe were divided on the dorsal aspect of the foot and plantar aspect of the foot. Then we reached the metatarsophalangeal joint. Segments were divided and the third toe was removed. We took the culture, which was sent for culture and sensitivity. No active bleeding was noted. There were some bleeding points which were electrocoagulated. Wound was copiously irrigated with hydrogen peroxide and saline. Hemostasis was well controlled. Subcutaneous tissue was approximated with 3-0 Vicryl. Skin was not closed. The wound was left open. Aquacel Silver was applied to the wound. Dressing was applied. Patient was transferred to the recovery room in satisfactory condition. MMODL / IJN: [id number] /
[2021-02-07] MEDS ORDERED: VANCOMYCIN TROUGH DUE 1 EACH MISC MISCELLANE ONE (01:00)
[2021-02-07] MEDS: VANCOMYCIN 1,500 MG in SODIUM CHLORIDE 0.9% 250 ML IVPB SCH ×2 (01:32→13:26)
[2021-02-07] MEDS: BUTALB/APAP/CAFF 50-325-40MG TAB PO PRN ×2 (02:01→17:23)
[2021-02-07 06:20] LABS: Basophils # (A) 0.1 k/uL (0-0.2); Basophils % (A) 1 %; Eosinophils # (A) 0.3 k/uL (0-0.7); Eosinophils % (A) 2 %; HCT 36.5 % (34.0-46.0); HGB 11.8 gm/dL (11.4-16.0); Hypochromasia Slight; Lymphocytes % (A) 14 %; MCH 27.4 pg (25.0-35.0); MCHC 32.3 g/dL (31.0-37.0); MCV 84.7 fL (80.0-100.0); Mean Platelet Volume 7.1; Monocytes # (A) 0.6 k/uL (0-1.0); Monocytes % (A) 5 %; Neutrophils # (A) 11.2 k/uL (1.3-7.7); Neutrophils % (A) 78 %; Platelet Count 412 k/uL (150-450); RBC 4.31 m/uL (3.80-5.40); RDW 14.7 % (11.5-15.5); WBC 14.3 k/uL (3.8-10.6)
[2021-02-07 07:23] LABS: Glucose,Whole Blood 139 mg/dL (75-99)
[2021-02-07] MEDS: CYANOCOBALAMIN 500 MCG TAB PO SCH (08:22)
[2021-02-07] MEDS: FOLIC ACID 1 MG TAB PO SCH (08:22)
[2021-02-07] MEDS: INSULIN DETEMIR (LEVEMIR) 100 UNIT/ML SYR SQ SCH (08:22)
[2021-02-07] MEDS: PREGABALIN 75 MG CAP PO SCH ×2 (08:22→21:50)
[2021-02-07] MEDS: INSULIN ASPART (NovoLOG) 100 UNIT/ML VIAL SQ SCH ×4 (08:23→21:50)
[2021-02-07 11:36] LABS: African American GFR (CKD) 109.9 (60.0-200.0); Anion Gap 9.7 mmol/L (4.00-12.00); BUN/Creat Ratio 32.86 Ratio (12.00-20.00); Calcium 8.5 mg/dL (8.7-10.3); Carbon Dioxide 26.3 mmol/L (21.6-31.8); Non-African American GFR(CKD) 94.8 (60.0-200.0); Potassium 4.4 mmol/L (3.5-5.5)
[2021-02-07 12:25] LABS: Glucose,Whole Blood 149 mg/dL (75-99)
--- NOTE | 2021-02-07 14:34 | PN ---
PROGRESS NOTE DATE OF SERVICE: 02/07/2021 REASON FOR FOLLOWUP: Left foot abscess and cellulitis. INTERVAL HISTORY: The patient is afebrile. The patient was taken to the OR yesterday status post drainage of the left foot abscess and amputation of left third toe. The patient tolerated the procedure. The patient's pain is currently controlled. No chest pain, shortness of breath or cough. No abdominal pain or diarrhea. PHYSICAL EXAMINATION: Blood pressure 116/63 with a pulse of 96, temperature 98.9. She is 93% on room air. General description is a middle-aged female lying in bed in no distress. Respiratory system: Unlabored breathing, clear to auscultation anteriorly. Heart S1, S2. Regular rate and rhythm. Abdomen soft, no tenderness. Left foot is currently dressed, no drainage on the dressing. LABS: Hemoglobin 9.8, white count 14.3, BUN of 23, creatinine 0.7. Culture with presumptive Staph aureus. DIAGNOSTIC IMPRESSION AND PLAN: Patient with left foot abscess and cellulitis, failing medical therapy status post amputation of the left third toe and drainage of the abscess. Patient is covered with vancomycin, to continue while waiting for the culture to finalize and monitor clinical course closely. 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 MMODL / IJN: [id number] /
[2021-02-07 16:59] LABS: Glucose,Whole Blood 187 mg/dL (75-99)
--- NOTE | 2021-02-07 17:50 | PN ---
PROGRESS NOTE The patient came with left foot third toe with a history of marked redness and drainage of puss. The patient had a ray amputation of the toe. Today we have changed the dressing and wound was irrigated with saline and Aquacel silver placed to the wound. Swelling and redness is less on the dorsal aspect of the foot. PLAN: Continue with IV antibiotic and we will change the dressing on . MMMARIA RL / IJN: [id number] /
--- NOTE | 2021-02-07 18:27 | P.PN ---
<Mark Alonzo - Last Filed: 02/07/21 18:14> Subjective Progress Note Date: 02/07/21 Hospital course: Patient is a 61-year-old female with a past medical history of insulin-dependent diabetes mellitus. She presented to the hospital on 01/31/21 with a chief complaint of left foot infection. She was found to have significant leukocytosis with WBC count of 25.2. X-ray left foot revealing mild soft tissue swelling calcaneal spurring no acute bony abnormality with no signs of os teomyelitis. CT left foot revealing prominent generalized soft tissue swelling with no discrete abscess identified. She underwent debridement, I and D and third toe amputation by Dr. Hammonds on 02/06/21. Patient currently receiving IV antibiotic vancomycin. Wound culture preliminary results positive for presumptive staph aureus. Blood culture showing no growth after 144 hours. She is admitted under our services with consultation to infectious disease and vascular surgery. Physical exam: Patient sitting up at side of bed upon assessment this morning. Patient currently reports pain in left foot controlled rating 4 out of 10 at this time. Morning labs reveal continued improvement with leukocytosis with WBC count of 14.3. Patient remains on IV vancomycin. Wound culture preliminary results positive for presumptive staph aureus. Blood culture showing no growth after 144 hours. Postsurgical dressing intact to left foot with no signs of bleeding or drainage. Patient denies having any headache, lightheadedness, dizziness, chest pain, palpitations, shortness of breath, abdominal pain, nausea, vomiting, or any other complaints at this time. Vital signs reviewed and stable. General: Nontoxic, no distress and appears stated age. Patient with multiple scratch alexandra on her back, she reports itching from sheets. Derm: Skin warm and dry, normal coloration for ethnicity. Head: Atraumatic, normocephalic and symmetric. Eyes: EOMs intact, no lid lag, and anicteric sclera Mouth: no lip lesions, mucus membranes moist Cardiovascular: regular rate and rhythm with normal S1S2, no murmur, positive posterior tibial pulses bilaterally, and cap refill < 2 seconds. Lungs: Respirations even, regular, and unlabored on room air. Lungs CTA b ilaterally, no rhonchi, no rales, no wheezing, and no accessory muscle usage. Abdominal: soft, nontender to palpation, no guarding, no appreciable organomegaly Ext: ROM intact. No gross muscle atrophy, no edema, no contractures. Left foot postsurgical dressing intact. Neuro: Speech clear, face symmetrical and CN II-XII grossly intact with no noted focal neuro deficits Psych: Alert and oriented to person, place, time, and situation. Appropriate and pleasant affect. Assessment and Plan of Care: Cellulitis of the left foot with a infected puncture wound to the plantar aspect of the third toe status post debridement, I and D and third toe amputation by Dr. Hammonds on 02/06/21. -Continue IV antibiotics with vancomycin -Infectious disease following -Vascular surgery following -Symptomatic care and pain management Severe sepsis without septic shock -Treated with aggressive IV fluid hydration and antibiotic. -Lactic acid is normal. -Blood culture negative to date, showing no growth after 144 hours. -Preliminary wound cultures positive for presumptive staph aureus -Continue IV antibiotic vancomycin -Infectious disease following Severe persistent frontal headache, now resolved. -Computed tomography scan in the ER showed no acute findings negative for acute intercranial process. Type 2 diabetes insulin-dependent diabetes mellitus -Hold Glucophage and placed on glycemic protocol with sliding scale along with Levemir 10 units daily. -Hemoglobin A1c 8.1%. -Heart healthy and carb consistent diet. CODE STATUS: Full code DVT prophylaxis: SCDs Discussed with: Patient and RN Anticipated discharge date: Clinical course to determine Anticipated discharge place: Home A total of 45 minutes was spent on the care of this complex patient more than 50% of the time was spent in counseling and care coordination. Objective - Vital Signs Vital signs: Vital Signs Temp 98.9 F 02/07/21 04:35 Pulse 96 02/07/21 04:35 Resp 20 02/07/21 04:35 BP 116/63 02/07/21 06:00 Pulse Ox 96 02/07/21 04:35 Intake & Output 02/06/21 02/07/21 02/07/21 18:59 06:59 18:59 Intake Total 1100 Output Total 10 Balance 1090 Intake: IV 250 Intake, IV Titration 250 Amount Vancomycin 1,500 mg In 250 Sodium Chloride 0.9% 250 ml @ 125 mls/hr IVPB Q8H [facility] Rx#:[id number] Oral 600 Output: Estimated Blood Loss 10 Other: Voiding Method Toilet Toilet # Voids 2 1 - Labs CBC & Chem 7: 02/07/21 06:00 02/07/21 06:00 Labs: Abnormal Lab Results - Last 24 Hours (Table) 02/06/21 02/06/21 02/06/21 Range/Units 04:50 12:03 17:22 WBC (3.8-10.6) k/uL Neutrophils # (1.3-7.7) k/uL BUN/Creatinine Ratio 30.00 H (12.00-20.00) Ratio Glucose 166 H (70-110) mg/dL POC Glucose (mg/dL) 186 H 122 H (75-99) mg/dL C-Reactive Protein 9.7 H (0.0-0.8) mg/dL 02/06/21 02/07/21 02/07/21 Range/Units 22:17 06:00 07:22 WBC 14.3 H (3.8-10.6) k/uL Neutrophils # 11.2 H (1.3-7.7) k/uL BUN/Creatinine Ratio (12.00-20.00) Ratio Glucose (70-110) mg/dL POC Glucose (mg/dL) 120 H 139 H (75-99) mg/dL C-Reactive Protein (0.0-0.8) mg/dL Microbiology - Last 24 Hours (Table) 02/06/21 15:00 Anaerobic Culture - Preliminary Toe - Left Third 02/06/21 15:00 Tissue Culture - Preliminary Toe - Left Third 02/06/21 11:04 Gram Stain - Preliminary Foot - Left Wound Culture - Preliminary Presumptive Staph aureus 01/31/21 21:50 Blood Culture - Final Blood No Growth after 144 hours 01/31/21 21:35 Blood Culture - Final Blood No Growth after 144 hours <Miya Sargent - Last Filed: 02/07/21 20:06> Subjective Mark Alonzo NP rendered care for this patient independently, reviewed the findings and plan as documented in the note above. I did not physically speak with or examine the patient on this date. Objective - Vital Signs Vital signs: Vital Signs Temp 98.0 F 02/07/21 12:43 Pulse 79 02/07/21 12:43 Resp 16 02/07/21 12:43 BP 130/70 02/07/21 12:43 Pulse Ox 96 02/07/21 12:43 Intake & Output 02/07/21 02/07/21 02/08/21 06:59 18:59 06:59 Intake Total 1100 Output Total 10 Balance 1090 Intake: IV 250 Intake, IV Titration 250 Amount Vancomycin 1,500 mg In 250 Sodium Chloride 0.9% 250 ml @ 125 mls/hr IVPB Q8H [facility] Rx#:[id number] Oral 600 Output: Estimated Blood Loss 10 Other: Voiding Method Toilet # Voids 1 1 - Labs CBC & Chem 7: 02/07/21 06:00 02/07/21 06:00 Labs: Abnormal Lab Results - Last 24 Hours (Table) 02/06/21 02/07/21 02/07/21 Range/Units 22:17 06:00 06:00 WBC 14.3 H (3.8-10.6) k/uL Neutrophils # 11.2 H (1.3-7.7) k/uL BUN/Creatinine Ratio 32.86 H (12.00-20.00) Ratio Glucose 134 H (70-110) mg/dL POC Glucose (mg/dL) 120 H (75-99) mg/dL Calcium 8.5 L (8.7-10.3) mg/dL 02/07/21 02/07/21 02/07/21 Range/Units 07:22 12:24 16:58 WBC (3.8-10.6) k/uL Neutrophils # (1.3-7.7) k/uL BUN/Creatinine Ratio (12.00-20.00) Ratio Glucose (70-110) mg/dL POC Glucose (mg/dL) 139 H 149 H 187 H (75-99) mg/dL Calcium (8.7-10.3) mg/dL Microbiology - Last 24 Hours (Table) 02/06/21 22:08 Anaerobic Culture - Preliminary Toe - Left Third 02/06/21 22:08 Wound Culture - Preliminary Toe - Left Third 02/06/21 15:00 Anaerobic Culture - Preliminary Toe - Left Third 02/06/21 15:00 Tissue Culture - Preliminary Toe - Left Third 02/06/21 11:04 Gram Stain - Preliminary Foot - Left Wound Culture - Preliminary Presumptive Staph aureus 01/31/21 21:50 Blood Culture - Final Blood No Growth after 144 hours 01/31/21 21:35 Blood Culture - Final Blood No Growth after 144 hours
[2021-02-07 20:49] LABS: Glucose,Whole Blood 192 mg/dL (75-99)
[2021-02-08] MEDS: VANCOMYCIN 1,500 MG in SODIUM CHLORIDE 0.9% 250 ML IVPB SCH ×2 (02:06→13:41)
[2021-02-08 03:32] LABS: Glucose,Whole Blood 136 mg/dL (75-99)
[2021-02-08] MEDS: HYDROCORTISONE 1% CREAM 454 GM JAR TOPICAL SCH ×4 (04:00→15:41)
[2021-02-08] MEDS: ACETAMINOPHEN TAB 325 MG TAB PO PRN ×2 (05:07→23:00)
[2021-02-08 07:15] LABS: Glucose,Whole Blood 148 mg/dL (75-99)
[2021-02-08] MEDS: INSULIN ASPART (NovoLOG) 100 UNIT/ML VIAL SQ SCH ×4 (08:31→20:29)
[2021-02-08] MEDS: INSULIN DETEMIR (LEVEMIR) 100 UNIT/ML SYR SQ SCH (08:31)
[2021-02-08] MEDS: CYANOCOBALAMIN 500 MCG TAB PO SCH (08:31)
[2021-02-08] MEDS: FOLIC ACID 1 MG TAB PO SCH (08:31)
[2021-02-08] MEDS: PREGABALIN 75 MG CAP PO SCH ×2 (08:31→20:29)
[2021-02-08 11:55] LABS: Glucose,Whole Blood 245 mg/dL (75-99)
--- NOTE | 2021-02-08 13:38 | P.PN ---
<Mark Alonzo - Last Filed: 02/08/21 13:26> Subjective Progress Note Date: 02/08/21 Hospital course: Patient is a 61-year-old female with a past medical history of insulin-dependent diabetes mellitus. She presented to the hospital on 01/31/21 with a chief complaint of left foot infection. She was found to have significant leukocytosis with WBC count of 25.2. X-ray left foot revealing mild soft tissue swelling calcaneal spurring no acute bony abnormality with no signs of os teomyelitis. CT left foot revealing prominent generalized soft tissue swelling with no discrete abscess identified. She underwent debridement, I and D and third toe amputation by Dr. Hammonds on 02/06/21. Patient currently receiving IV antibiotic vancomycin. Wound culture preliminary results positive for staph aureus. Blood culture showing no growth after 144 hours. She is admitted under our services with consultation to infectious disease and vascular surgery. Physical exam: Patient sitting up at side of bed upon assessment this morning talking on the phone. She reports continued pain control and denies having any complaints or concerns at this time. She remains on IV vancomycin. Wound culture was positive for staph aureus. Blood cultures were negative. Patient likely to transition to oral antibiotics with discharge home in the next 1-2 days. Vital signs reviewed and stable. General: Nontoxic, no distress and appears stated age. Patient with multiple scratch alexandra on her back, she reports itching from sheets. Derm: Skin warm and dry, normal coloration for ethnicity. Head: Atraumatic, normocephalic and symmetric. Eyes: EOMs intact, no lid lag, and anicteric sclera Mouth: no lip lesions, mucus membranes moist Cardiovascular: regular rate and rhythm with normal S1S2, no murmur, positive posterior tibial pulses bilaterally, and cap refill < 2 seconds. Lungs: Respirations even, regular, and unlabored on room air. Lungs CTA bilaterally, no rhonchi, no rales, no wheezing, and no accessory muscle usage. Abdominal: soft, nontender to palpation, no guarding, no appreciable organomegaly Ext: ROM intact. No gross muscle atrophy, no edema, no contractures. Left foot postsurgical dressing intact. Neuro: Speech clear, face symmetrical and CN II-XII grossly intact with no noted focal neuro deficits Psych: Alert and oriented to person, place, time, and situation. Appropriate and pleasant affect. Assessment and Plan of Care: Cellulitis of the left foot with an infected puncture wound to the plantar aspect of the third toe, currently status post debridement, I&D and third toe amputation by Dr. Hammonds on 02/06/21 -Continue IV antibiotics with vancomycin, pending further recommendations by infectious disease. -Infectious disease following -Vascular surgery following -Symptomatic care and pain management -Wound care -Wound culture positive for staph aureus Severe sepsis without septic shock -Treated with aggressive IV fluid hydration and antibiotic. -Lactic acid was normal. -Blood culture negative, showing no growth after 144 hours. -Wound cultures positive for staph aureus -Continue IV antibiotic vancomycin -Infectious disease following Severe frontal headache, now resolved. -Computed tomography scan in the ER showed no acute findings negative for acute intercranial process. Type 2 diabetes insulin-dependent diabetes mellitus -Hold Glucophage and placed on glycemic protocol with sliding scale along with Levemir 10 units daily. -Hemoglobin A1c 8.1%. -Heart healthy and carb consistent diet. CODE STATUS: Full code DVT prophylaxis: SCDs Discussed with: Patient and RN Anticipated discharge date: Clinical course to determine, likely 1-[address]: Home with follow-up to wound care clinic A total of 45 minutes was spent on the care of this complex patient more than 50% of the time was spent in counseling and care coordination. Objective - Vital Signs Vital signs: Vital Signs Temp 98.6 F 02/08/21 05:00 Pulse 83 02/08/21 05:00 Resp 20 02/08/21 05:00 BP 125/72 02/08/21 05:00 Pulse Ox 93 L 02/08/21 05:00 Intake & Output 02/07/21 02/08/21 02/08/21 18:59 06:59 18:59 Intake Total 100 Balance 100 Intake: Oral 100 Other: Voiding Method Toilet # Voids 1 2 - Labs CBC & Chem 7: 02/07/21 06:00 02/07/21 06:00 Labs: Abnormal Lab Results - Last 24 Hours (Table) 02/07/21 02/07/21 02/07/21 Range/Units 06:00 12:24 16:58 BUN/Creatinine Ratio 32.86 H (12.00-20.00) Ratio Glucose 134 H (70-110) mg/dL POC Glucose (mg/dL) 149 H 187 H (75-99) mg/dL Calcium 8.5 L (8.7-10.3) mg/dL 02/07/21 02/08/21 02/08/21 Range/Units 20:43 03:30 07:13 BUN/Creatinine Ratio (12.00-20.00) Ratio Glucose (70-110) mg/dL POC Glucose (mg/dL) 192 H 136 H 148 H (75-99) mg/dL Calcium (8.7-10.3) mg/dL Microbiology - Last 24 Hours (Table) 02/06/21 15:00 Gram Stain - Preliminary Toe - Left Third Tissue Culture - Preliminary Presumptive Staph aureus 02/06/21 11:04 Gram Stain - Final Foot - Left Wound Culture - Final Staphylococcus aureus 02/06/21 22:08 Gram Stain - Preliminary Toe - Left Third Wound Culture - Preliminary 02/06/21 22:08 Anaerobic Culture - Preliminary Toe - Left Third 02/06/21 15:00 Anaerobic Culture - Preliminary Toe - Left Third <Miya Sargent - Last Filed: 02/08/21 17:35> Subjective Mark Alonzo NP rendered care for this patient independently, reviewed the findings and plan as documented in the note above. I did not physically speak with or examine the patient on this date. Objective - Vital Signs Vital signs: Vital Signs Temp 98.6 F 02/08/21 12:22 Pulse 79 02/08/21 12:22 Resp 18 02/08/21 12:22 BP 131/67 02/08/21 12:22 Pulse Ox 98 02/08/21 12:22 Intake & Output 02/07/21 02/08/21 02/08/21 18:59 06:59 18:59 Intake Total 100 Balance 100 Weight 81.647 kg Intake: Oral 100 Other: Voiding Method Toilet # Voids 1 2 4 # Bowel Movements 3 - Labs CBC & Chem 7: 02/07/21 06:00 02/07/21 06:00 Labs: Abnormal Lab Results - Last 24 Hours (Table) 02/07/21 02/08/21 02/08/21 Range/Units 20:43 03:30 07:13 POC Glucose (mg/dL) 192 H 136 H 148 H (75-99) mg/dL 02/08/21 02/08/21 Range/Units 11:54 17:10 POC Glucose (mg/dL) 245 H 135 H (75-99) mg/dL Microbiology - Last 24 Hours (Table) 02/06/21 15:00 Gram Stain - Preliminary Toe - Left Third Tissue Culture - Preliminary Presumptive Staph aureus 02/06/21 11:04 Gram Stain - Final Foot - Left Wound Culture - Final Staphylococcus aureus 02/06/21 22:08 Gram Stain - Preliminary Toe - Left Third Wound Culture - Preliminary
[2021-02-08] MEDS: BUTALB/APAP/CAFF 50-325-40MG TAB PO PRN (15:41)
[2021-02-08 17:11] LABS: Glucose,Whole Blood 135 mg/dL (75-99)
[2021-02-08 20:00] LABS: Glucose,Whole Blood 204 mg/dL (75-99)
[2021-02-09 00:32] LABS: Glucose,Whole Blood 167 mg/dL (75-99)
[2021-02-09] MEDS: HYDROCORTISONE 1% CREAM 454 GM JAR TOPICAL SCH ×4 (01:41→20:57)
--- NOTE | 2021-02-09 02:12 | PN ---
PROGRESS NOTE DATE OF SERVICE: 02/08/2021 REASON FOR FOLLOW UP: Left foot cellulitis and abscess MSSA. INTERVAL HISTORY: The patient is afebrile. The patient is breathing comfortably. Denies having any chest pain, shortness of breath, cough, abdominal pain, or any worsening pain to the left foot area. PHYSICAL EXAMINATION: Her blood pressure is 138/66, pulse of 83, temperature 98.6, she is 99% on room air. General description is a middle-aged female lying in bed in no distress. Respiratory system: Unlabored breathing, clear to auscultation anteriorly. Heart S1, S2. Regular rate and rhythm. Abdomen soft, no tenderness. Left foot is currently dressed. No obvious drainage on the dressing. LABS: Culture has been finalized with MSSA. DIAGNOSTIC IMPRESSION AND PLAN: Patient with left foot abscess and cellulitis in this patient who is status post amputation of left third toe, culture with MSSA. Antibiotic will be adjusted to the cefazolin 2 grams q.8 hours. May benefit from outpatient IV antibiotic. Will discuss with the dependency case manager. Continue supportive care. MMODL / IJN: [id number] / REJI
[2021-02-09 06:20] LABS: HGB 10.9 gm/dL (11.4-16.0); MCH 27.3 pg (25.0-35.0); MCV 80.4 fL (80.0-100.0); Mean Platelet Volume 6.7; Platelet Count 376 k/uL (150-450); RBC 3.97 m/uL (3.80-5.40); RDW 13.7 % (11.5-15.5); WBC 11.7 k/uL (3.8-10.6)
[2021-02-09 07:14] LABS: Glucose,Whole Blood 162 mg/dL (75-99)
[2021-02-09] MEDS: FOLIC ACID 1 MG TAB PO SCH (08:07)
[2021-02-09] MEDS: PREGABALIN 75 MG CAP PO SCH ×2 (08:07→20:54)
[2021-02-09] MEDS: CYANOCOBALAMIN 500 MCG TAB PO SCH (08:07)
[2021-02-09] MEDS: INSULIN ASPART (NovoLOG) 100 UNIT/ML VIAL SQ SCH ×4 (08:08→20:54)
[2021-02-09] MEDS: INSULIN DETEMIR (LEVEMIR) 100 UNIT/ML SYR SQ SCH (08:20)
[2021-02-09] MEDS: ACETAMINOPHEN TAB 325 MG TAB PO PRN ×2 (08:23→15:16)
[2021-02-09 11:28] LABS: Glucose,Whole Blood 183 mg/dL (75-99)
[2021-02-09 11:56] LABS: African American GFR (CKD) 29.1 (60.0-200.0); Anion Gap 10.8 mmol/L (4.00-12.00); BUN/Creat Ratio 23.81 Ratio (12.00-20.00); Calcium 8.8 mg/dL (8.7-10.3); Carbon Dioxide 21.2 mmol/L (21.6-31.8); Magnesium 1.9 mg/dL (1.5-2.4); Non-African American GFR(CKD) 25.1 (60.0-200.0); Potassium 4.8 mmol/L (3.5-5.5)
--- NOTE | 2021-02-09 11:59 | P.PN ---
<Mark Alonzo - Last Filed: 02/09/21 11:38> Subjective Progress Note Date: 02/09/21 Hospital course: Patient is a 61-year-old female with a past medical history of insulin-dependent diabetes mellitus. She presented to the hospital on 01/31/21 with a chief complaint of left foot infection. She was found to have significant leukocytosis with WBC count of 25.2. X-ray left foot revealing mild soft tissue swelling calcaneal spurring no acute bony abnormality with no signs of os teomyelitis. CT left foot revealing prominent generalized soft tissue swelling with no discrete abscess identified. She underwent debridement, I and D and third toe amputation by Dr. Hammonds on 02/06/21. Patient currently receiving IV antibiotic vancomycin. Wound culture preliminary results positive for staph aureus. Blood culture showing no growth after 144 hours. She is admitted under our services with consultation to infectious disease and vascular surgery. Physical exam: Patient seen and fully evaluated at bedside this morning. She is sitting up in chair and doing well. IV antibiotics changed to cefazolin. Discussed plan with Dr. Pleitez, Infectious Disease whom is recommending patient continue with IV antibiotics upon discharge and currently discussing with case management for possible arrangements. Pt states pain in let foot 3/10 at this time. Denies any other complaints or needs. Vital signs reviewed and stable. General: Nontoxic, no distress and appears stated age. Patient with multiple scratch alexandra on her back, she reports itching from sheets. Derm: Skin warm and dry, normal coloration for ethnicity. Head: Atraumatic, normocephalic and symmetric. Eyes: EOMs intact, no lid lag, and anicteric sclera Mouth: no lip lesions, mucus membranes moist Cardiovascular: regular rate and rhythm with normal S1S2, no murmur, positive posterior tibial pulses bilaterally, and cap refill < 2 seconds. Lungs: Respirations even, regular, and unlabored on room air. Lungs CTA bilaterally, no rhonchi, no rales, no wheezing, and no accessory muscle usage. Abdominal: soft, nontender to palpation, no guarding, no appreciable organo megaly Ext: ROM intact. No gross muscle atrophy, no edema, no contractures. Left foot postsurgical dressing intact. Neuro: Speech clear, face symmetrical and CN II-XII grossly intact with no noted focal neuro deficits Psych: Alert and oriented to person, place, time, and situation. Appropriate and pleasant affect. Assessment and Plan of Care: Cellulitis of the left foot with an infected puncture wound to the plantar aspect of the third toe, currently status post debridement, I&D and third toe amputation by Dr. Hammonds on 02/06/21 -IV antibiotics changed to cefazolin after wound culture positive for Staphylococcus aureus (MSSA) -Infectious disease following, recommending patient continue with IV antibiotics upon discharge and currently discussing with case management for possible arrangements. -Vascular surgery following -Symptomatic care and pain management -Wound care -Wound culture positive for staph aureus Severe sepsis without septic shock -Treated with aggressive IV fluid hydration and antibiotic. -Lactic acid was normal. -Blood culture negative, showing no growth after 144 hours. -Wound cultures positive for staph aureus -IV antibiotics changed to cefazolin after wound culture positive for MSSA -Infectious disease following Severe frontal headache, now resolved. -Computed tomography scan in the ER showed no acute findings negative for acute intercranial process. Type 2 diabetes insulin-dependent diabetes mellitus -Hold Glucophage and placed on glycemic protocol with sliding scale along with Levemir 10 units daily. -instrument and controls technician to complete med rec and determine dose -Hemoglobin A1c 8.1%. -Heart healthy and carb consistent diet. CODE STATUS: Full code DVT prophylaxis: SCDs Discussed with: Patient and RN Anticipated discharge date: Clinical course to determine, likely 1-[address]: Home with follow-up to wound care clinic A total of 45 minutes was spent on the care of this complex patient more than 50% of the time was spent in counseling and care coordination. Objective - Vital Signs Vital signs: Vital Signs Temp 98.1 F 02/09/21 05:00 Pulse 71 02/09/21 05:00 Resp 16 02/09/21 05:00 BP 121/73 02/09/21 05:00 Pulse Ox 95 02/09/21 05:00 Intake & Output 02/08/21 02/09/21 02/09/21 18:59 06:59 18:59 Intake Total 590 240 Balance 590 240 Weight 81.647 kg Intake: Oral 590 240 Other: Voiding Method Bedside Commode # Voids 4 2 # Bowel Movements 3 - Labs CBC & Chem 7: 02/09/21 05:36 02/07/21 06:00 Labs: Abnormal Lab Results - Last 24 Hours (Table) 02/07/21 02/08/21 02/08/21 Range/Units 06:00 11:54 17:10 WBC (3.8-10.6) k/uL Hgb (11.4-16.0) gm/dL Hct (34.0-46.0) % POC Glucose (mg/dL) 245 H 135 H (75-99) mg/dL Vitamin B6 4 L (5-50) ug/L 02/08/21 02/09/21 02/09/21 Range/Units 19:59 00:31 05:36 WBC 11.7 H (3.8-10.6) k/uL Hgb 10.9 L (11.4-16.0) gm/dL Hct 32.0 L (34.0-46.0) % POC Glucose (mg/dL) 204 H 167 H (75-99) mg/dL Vitamin B6 (5-50) ug/L 02/09/21 Range/Units 07:12 WBC (3.8-10.6) k/uL Hgb (11.4-16.0) gm/dL Hct (34.0-46.0) % POC Glucose (mg/dL) 162 H (75-99) mg/dL Vitamin B6 (5-50) ug/L Microbiology - Last 24 Hours (Table) 02/06/21 15:00 Gram Stain - Preliminary Toe - Left Third Tissue Culture - Preliminary Presumptive Staph aureus 02/06/21 11:04 Gram Stain - Final Foot - Left Wound Culture - Final Staphylococcus aureus <Miya Sargent - Last Filed: 02/09/21 18:48> Subjective Patient seen and examined independently. Patient was also seen by Mark Alonzo NP and case was discussed. I am in agreement with subjective, physical exam, assessment and plan as written above and amended below. No chest pain or shortness of breath. No nausea or vomiting. Has not been eating much but she does not like food typically has a good appetite. No history of kidney problems in the past. Additional diagnoses: THIEN -Unknown etiology -IV fluids -Avoid nephrotoxic agents -Repeat creatinine in a.m. -Check postvoid residuals -Prescribed amount and consult nephrology. General: non toxic, no distress, appears at stated age Derm: Dressing in place over legs, warm, dry Head: atraumatic, normocephalic, symmetric Eyes: EOMI, no lid lag, anicteric sclera Mouth: no lip lesion, mucus membranes moist Cardiovascular: S1S2 reg, no murmur, positive posterior tibial pulse bilateral, Lungs: CTA bilateral, no rhonchi, no rales , no accessory muscle use Abdominal: soft, nontender to palpation, no guarding, no appreciable organomegaly Ext: no gross muscle atrophy, no edema, no contractures Neuro: CN II-XI grossly intact, no focal neuro deficits Psych: Alert, oriented, appropriate affect Objective - Vital Signs Vital signs: Vital Signs Temp 98.4 F 02/09/21 15:55 Pulse 100 02/09/21 15:55 Resp 16 02/09/21 15:55 BP 158/71 02/09/21 15:55 Pulse Ox 96 02/09/21 12:22 Intake & Output 02/08/21 02/09/21 02/09/21 18:59 06:59 18:59 Intake Total 590 810 Balance 590 810 Weight 81.647 kg Intake: Intake, IV Titration 570 Amount Sodium Chloride 0.9% 1, 520 000 ml @ 130 mls/hr IV . [id number] ERIC Rx#:[id number] ceFAZolin 2 gm In Sodium 50 Chloride 0.9% 50 ml @ 100 mls/hr IVPB Q8HR ERIC Rx# :[id number] Oral 590 240 Other: Voiding Method Bedside Commode Bedside Commode # Voids 4 2 # Bowel Movements 3 - Labs CBC & Chem 7: 02/09/21 05:36 02/09/21 05:36 Labs: Abnormal Lab Results - Last 24 Hours (Table) 02/07/21 02/08/21 02/09/21 Range/Units 06:00 19:59 00:31 WBC (3.8-10.6) k/uL Hgb (11.4-16.0) gm/dL Hct (34.0-46.0) % Sodium (135-145) mmol/L Carbon Dioxide (21.6-31.8) mmol/L BUN (9.0-27.0) mg/dL Creatinine (0.6-1.5) mg/dL Est GFR (CKD-EPI)AfAm (60.0-200.0) Est GFR (CKD-EPI)NonAf (60.0-200.0) BUN/Creatinine Ratio (12.00-20.00) Ratio Glucose (70-110) mg/dL POC Glucose (mg/dL) 204 H 167 H (75-99) mg/dL Vitamin B6 4 L (5-50) ug/L 02/09/21 02/09/21 02/09/21 Range/Units 05:36 05:36 07:12 WBC 11.7 H (3.8-10.6) k/uL Hgb 10.9 L (11.4-16.0) gm/dL Hct 32.0 L (34.0-46.0) % Sodium 134 L (135-145) mmol/L Carbon Dioxide 21.2 L (21.6-31.8) mmol/L BUN 50.0 H (9.0-27.0) mg/dL Creatinine 2.1 H (0.6-1.5) mg/dL Est GFR (CKD-EPI)AfAm 29.1 L (60.0-200.0) Est GFR (CKD-EPI)NonAf 25.1 L (60.0-200.0) BUN/Creatinine Ratio 23.81 H (12.00-20.00) Ratio Glucose 134 H (70-110) mg/dL POC Glucose (mg/dL) 162 H (75-99) mg/dL Vitamin B6 (5-50) ug/L 02/09/21 02/09/21 Range/Units 11:23 17:14 WBC (3.8-10.6) k/uL Hgb (11.4-16.0) gm/dL Hct (34.0-46.0) % Sodium (135-145) mmol/L Carbon Dioxide (21.6-31.8) mmol/L BUN (9.0-27.0) mg/dL Creatinine (0.6-1.5) mg/dL Est GFR (CKD-EPI)AfAm (60.0-200.0) Est GFR (CKD-EPI)NonAf (60.0-200.0) BUN/Creatinine Ratio (12.00-20.00) Ratio Glucose (70-110) mg/dL POC Glucose (mg/dL) 183 H 143 H (75-99) mg/dL Vitamin B6 (5-50) ug/L Microbiology - Last 24 Hours (Table) 02/06/21 22:08 Anaerobic Culture - Preliminary Toe - Left Third 02/06/21 15:00 Anaerobic Culture - Preliminary Toe - Left Third 02/06/21 22:08 Gram Stain - Final Toe - Left Third Wound Culture - Final Staphylococcus aureus 02/06/21 15:00 Gram Stain - Final Toe - Left Third Tissue Culture - Final Staphylococcus aureus
[2021-02-09] MEDS ORDERED: VANCOMYCIN TROUGH DUE 1 EACH MISC MISCELLANE ONE (13:00)
[2021-02-09] MEDS: SODIUM CHLORIDE 0.9% 1,000 ML IV SCH (13:32)
[2021-02-09 17:24] LABS: Glucose,Whole Blood 143 mg/dL (75-99)
--- NOTE | 2021-02-09 17:24 | PN ---
PROGRESS NOTE DATE OF SERVICE: 02/09/2021 REASON FOR FOLLOWUP: Left foot abscess, cellulitis secondary to MSSA. INTERVAL HISTORY: The patient is afebrile. The patient is breathing comfortably. The patient denies having any chest pain or shortness of breath or cough. No abdominal pain or any diarrhea. Pain to the left foot is currently controlled. PHYSICAL EXAMINATION: Blood pressure 139/87, pulse of 69, temperature 97.2. She is 96% on room air. GENERAL DESCRIPTION: General description is a middle-aged female up in the bed in no distress. RESPIRATORY SYSTEM: Unlabored breathing. Clear to auscultation anteriorly. HEART: S1, S2. Regular rate and rhythm. ABDOMEN: Soft. No tenderness. Left foot wound base looks clean. Surrounding swelling and redness have improved. No drainage. LABS: Wound culture with MSSA. She did have a white count down to 11.7; however, creatinine is up to 2.1. DIAGNOSTIC IMPRESSION AND PLAN: Patient with left foot abscess and cellulitis, for which the patient will continue with cefazolin. Try to arrange for outpatient antibiotics for at least 2 weeks cefazolin 2 grams q.8 hours or Rocephin 2 grams daily. If no coverage or too expensive, may try oral Keflex. Will discuss with the case mgr. Patient did have slight worsening of her kidney infection. That will be monitored closely. May need gentle IV fluid. Continue with supportive care. MMMARIA RL / ELYSIAN: [id number] / MTDD
[2021-02-09 21:03] LABS: Glucose,Whole Blood 217 mg/dL (75-99)
[2021-02-10] MEDS: ACETAMINOPHEN TAB 325 MG TAB PO PRN ×2 (05:36→15:06)
[2021-02-10 06:20] LABS: HCT 33.9 % (34.0-46.0); HGB 10.9 gm/dL (11.4-16.0); Hypochromasia Slight; MCH 26.7 pg (25.0-35.0); MCV 83.4 fL (80.0-100.0); Mean Platelet Volume 7.2; Platelet Count 359 k/uL (150-450); RBC 4.06 m/uL (3.80-5.40); RDW 14.1 % (11.5-15.5); WBC 12.8 k/uL (3.8-10.6)
[2021-02-10 06:41] LABS: African American GFR (CKD) 23 (>60 ml/min/1.73 sqM); Anion Gap 10 mmol/L; Blood Urea Nitrogen 57 mg/dL (7-17); Calcium 7.8 mg/dL (8.4-10.2); Carbon Dioxide 19 mmol/L (22-30); Chloride 101 mmol/L (98-107); Glucose 115 mg/dL (74-99); Magnesium 2.1 mg/dL (1.6-2.3); Non-African American GFR(CKD) 20 (>60 ml/min/1.73 sqM); Potassium 4.9 mmol/L (3.5-5.1); Sodium 130 mmol/L (137-145)
[2021-02-10 06:44] LABS: Glucose,Whole Blood 142 mg/dL (75-99)
[2021-02-10] MEDS: SODIUM CHLORIDE 0.9% 1,000 ML IV SCH ×5 (06:45→15:02)
[2021-02-10] MEDS: FOLIC ACID 1 MG TAB PO SCH (08:20)
[2021-02-10] MEDS: PREGABALIN 75 MG CAP PO SCH ×2 (08:20→22:00)
[2021-02-10] MEDS: CYANOCOBALAMIN 500 MCG TAB PO SCH (08:20)
[2021-02-10] MEDS: INSULIN DETEMIR (LEVEMIR) 100 UNIT/ML SYR SQ SCH (08:21)
[2021-02-10] MEDS: INSULIN ASPART (NovoLOG) 100 UNIT/ML VIAL SQ SCH ×4 (08:21→22:00)
--- NOTE | 2021-02-10 11:31 | P.DS ---
Providers Date of admission: 02/01/21 12:30 Expected date of discharge: 02/10/21 Attending physician: Evelia Bay MD Consults: 02/01/21 03:25 Consult Physician Routine Consulting Provider: Jeff Pleitez Consult Reason/Comments: DM, puncture wound foot, cellulitis Do you want consulting provider notified?: Yes, Notify in am 02/01/21 10:46 Consult Physician Routine Consulting Provider: Kimani Phillips Consult Reason/Comments: Severe persistent headache Do you want consulting provider notified?: Yes 02/06/21 11:02 Consult Physician Routine Consulting Provider: Arnulfo Hammonds Consult Reason/Comments: left foot abscess, i&d Do you want consulting provider notified?: Yes Primary care physician: Stated None Hospital Course: Discharge Diagnosis: [] Hospital Course: Hospital course: Patient is a 61-year-old female with a past medical history of insulin-dependent diabetes mellitus. She presented to the hospital on 01/31/21 with a chief complaint of left foot infection. She was found to have significant leukocytosis with WBC count of 25.2. X-ray left foot revealing mild soft tissue swelling calcaneal spurring no acute bony abnormality with no signs of osteomyelitis. CT left foot revealing prominent generalized soft tissue swelling with no discrete abscess identified. She underwent debridement, I and D and third toe amputation by Dr. Hammonds on 02/06/21. Patient currently receiving IV antibiotic vancomycin. Wound culture preliminary results positive for staph aureus. Blood culture showing no growth after 144 hours. She is admitted under our services with consultation to infectious disease and vascular surgery. Physical exam: Patient seen and fully evaluated at bedside this morning. She is sitting up in chair and doing well. IV antibiotics changed to cefazolin. Discussed plan with Dr. Pleitez, Infectious Disease whom is recommending patient continue with IV antibiotics upon discharge and currently discussing with case management for possible arrangements. Pt states pain in let foot 3/10 at this time. Denies any other complaints or needs. Vital signs reviewed and stable. General: Nontoxic, no distress and appears stated age. Patient with multiple scratch alexandra on her back, she reports itching from sheets. Derm: Skin warm and dry, normal coloration for ethnicity. Head: Atraumatic, normocephalic and symmetric. Eyes: EOMs intact, no lid lag, and anicteric sclera Mouth: no lip lesions, mucus membranes moist Cardiovascular: regular rate and rhythm with normal S1S2, no murmur, positive posterior tibial pulses bilaterally, and cap refill < 2 seconds. Lungs: Respirations even, regular, and unlabored on room air. Lungs CTA bilaterally, no rhonchi, no rales, no wheezing, and no accessory muscle usage. Abdominal: soft, nontender to palpation, no guarding, no appreciable organomegaly Ext: ROM intact. No gross muscle atrophy, no edema, no contractures. Left foot postsurgical dressing intact. Neuro: Speech clear, face symmetrical and CN II-XII grossly intact with no noted focal neuro deficits Psych: Alert and oriented to person, place, time, and situation. Appropriate and pleasant affect. Assessment and Plan of Care: Cellulitis of the left foot with an infected puncture wound to the plantar aspect of the third toe, currently status post debridement, I&D and third toe amputation by Dr. Hammonds on 02/06/21 -IV antibiotics changed to cefazolin after wound culture positive for Staphylococcus aureus (MSSA) -Infectious disease following, recommending patient continue with IV antibiotics upon discharge and currently discussing with case management for possible arrangements. -Vascular surgery following -Symptomatic care and pain management -Wound care -Wound culture positive for staph aureus Severe sepsis without septic shock -Treated with aggressive IV fluid hydration and antibiotic. -Lactic acid was normal. -Blood culture negative, showing no growth after 144 hours. -Wound cultures positive for staph aureus -IV antibiotics changed to cefazolin after wound culture positive for MSSA -Infectious disease following Severe frontal headache, now resolved. -Computed tomography scan in the ER showed no acute findings negative for acute intercranial process. Type 2 diabetes insulin-dependent diabetes mellitus -Hold Glucophage and placed on glycemic protocol with sliding scale along with Levemir 10 units daily. -distribution engineering technologist to complete med rec and determine dose -Hemoglobin A1c 8.1%. -Heart healthy and carb consistent diet. A total of 45 minutes of time were spent preparing this complex discharge summary. Patient Condition at Discharge: Fair Plan - Discharge Summary Discharge Rx Participant: No New Discharge Prescriptions: No Action Nortriptyline [Pamelor] 50 mg PO HS Linagliptin [Tradjenta] 5 mg PO DAILY Terbinafine HCl [LamISIL] 250 mg PO DAILY Insulin Glargine [Lantus Vial] 85 unit SQ HS DULoxetine HCL [Cymbalta] 30 mg PO DAILY Discharge Medication List DULoxetine HCL [Cymbalta] 30 mg PO DAILY 02/09/21 [History] Insulin Glargine [Lantus Vial] 85 unit SQ HS 02/09/21 [History] Linagliptin [Tradjenta] 5 mg PO DAILY 02/09/21 [History] Nortriptyline [Pamelor] 50 mg PO HS 02/09/21 [History] Terbinafine HCl [LamISIL] 250 mg PO DAILY 02/09/21 [History] Follow up Appointment(s)/Referral(s): None,Stated [Primary Care Provider] - 1-2 days
[2021-02-10] MEDS: HYDROCORTISONE 1% CREAM 454 GM JAR TOPICAL SCH ×3 (11:36→22:00)
[2021-02-10 12:29] LABS: Glucose,Whole Blood 130 mg/dL (75-99)
--- NOTE | 2021-02-10 14:42 | US ---
EXAMINATION TYPE: US renals and bladder DATE OF EXAM: 02/10/2021 COMPARISON: NONE CLINICAL HISTORY: thien. THIEN. EXAM MEASUREMENTS: Right Kidney: 13.6 x 6.5 x 4.8 cm Left Kidney: 13.1 x 6.5 x 6.6 cm Right Kidney: Appears enlarged. Pyramids appear prominent. Collecting system appears slightly dilated . Left Kidney: Appears enlarged. Isoechoic area seen versus possible column of Norris: 2.2 x 2.8 x 2.3 cm. Bladder: Anechoic. Bilateral Jets seen: No. IMPRESSION: 1. No suspicious acute changes. Follow up exams can be performed as clinically indicated.
--- NOTE | 2021-02-10 15:10 | P.PN ---
<Mark Alonzo - Last Filed: 02/10/21 14:52> Subjective Progress Note Date: 02/10/21 Hospital course: Patient is a 61-year-old female with a past medical history of insulin-dependent diabetes mellitus. She presented to the hospital on 01/31/21 with a chief complaint of left foot infection. She was found to have significant leukocytosis with WBC count of 25.2. X-ray left foot revealing mild soft tissue swelling calcaneal spurring no acute bony abnormality with no signs of os teomyelitis. CT left foot revealing prominent generalized soft tissue swelling with no discrete abscess identified. She underwent debridement, I and D and third toe amputation by Dr. Hammonds on 02/06/21. Patient currently receiving IV antibiotic vancomycin. Wound culture preliminary results positive for staph aureus. Blood culture showing no growth after 144 hours. She is admitted under our services with consultation to infectious disease and vascular surgery. Physical exam: 02/09/21: Patient's initial plan was for discharge home today on antibiotics, however discharge was canceled secondary to labs resulting showing worsening renal function with BUN of 57, creatinine 2.54, and GFR of 20. In addition patient reports developing a red, bumpy, pustule-like rash over her legs, abdomen, breasts, and back. Patient states she first noticed this rash 2 days ago and that it has progressively worsened. Renal and bladder ultrasound to be completed. Nephrology consulted. Stat urinalysis, urine Eosinophil, and uric acid to be obtained. Pt reports urinary frequency but denies any other urinary complaints at this time. Pt denies CVA tenderness but does report history of "kidney problems" when she had back surgery last year. Patient denied having any other complaints or concerns today. She denied headache, lightheadedness, dizziness, chest pain, palpitations, shortness of breath, abdominal pain, n ausea, or vomiting. She reports pain in left foot remains controlled and rates 3 out of 10. Vital signs reviewed and stable. General: Nontoxic, no distress and appears stated age. Derm: Skin warm and dry, normal coloration for ethnicity. Red, bumpy, pustule- like rash over legs, abdomen, breasts, and back. Head: Atraumatic, normocephalic and symmetric. Eyes: EOMs intact, no lid lag, and anicteric sclera. Mouth: no lip lesions, mucus membranes moist. Cardiovascular: regular rate and rhythm with normal S1S2, no murmur, positive posterior tibial pulses bilaterally, and cap refill < 2 seconds. Lungs: Respirations even, regular, and unlabored on room air. Lungs CTA bilaterally, no rhonchi, no rales, no wheezing, and no accessory muscle usage. Abdominal: soft, nontender to palpation, no guarding, no appreciable organomegaly Ext: ROM intact. No gross muscle atrophy, no edema, no contractures. Left foot postsurgical dressing intact. Neuro: Speech clear, face symmetrical and CN II-XII grossly intact with no noted focal neuro deficits. Psych: Alert and oriented to person, place, time, and situation. Appropriate and pleasant affect. Assessment and Plan of Care: Cellulitis of the left foot with an infected puncture wound to the plantar aspect of the third toe, currently status post debridement, I&D and third toe amputation by Dr. Hammonds on 02/06/21 -IV antibiotics changed to cefazolin after wound culture positive for Staphylococcus aureus (MSSA) -Infectious disease following, recommending patient continue with IV antibiotics upon discharge and currently discussing with case management for possible arrang ements. -Vascular surgery following -Symptomatic care and pain management -Wound care -Wound culture positive for staph aureus Acute kidney injury -Worsening renal function with BUN 57, creatinine 2.54, and GFR of 20 -Renal and bladder ultrasound to be completed. -Nephrology consulted. -Stat urinalysis, urine Eosinophil, and uric acid to be obtained. -Avoid nephrotoxic medications. Severe sepsis without septic shock -Treated with aggressive IV fluid hydration and antibiotic. -Lactic acid was normal. -Blood culture negative, showing no growth after 144 hours. -Wound cultures positive for staph aureus -IV antibiotics changed to cefazolin after wound culture positive for MSSA -Infectious disease following Severe frontal headache, now resolved. -Computed tomography scan in the ER showed no acute findings negative for acute intercranial process. Type 2 diabetes insulin-dependent diabetes mellitus -Hold Glucophage and placed on glycemic protocol with sliding scale along with Levemir 10 units daily. -design technology professor to complete med rec and determine dose -Hemoglobin A1c 8.1%. -Heart healthy and carb consistent diet. CODE STATUS: Full code DVT prophylaxis: SCDs Discussed with: Patient and RN Anticipated discharge date: Clinical course to determine Anticipated discharge place: Home A total of 45 minutes was spent on the care of this complex patient more than 50% of the time was spent in counseling and care coordination. Objective - Vital Signs Vital signs: Vital Signs Temp 98.9 F 02/10/21 05:30 Pulse 78 02/10/21 05:30 Resp 18 02/10/21 05:30 BP 113/63 02/10/21 05:30 Pulse Ox 94 L 02/10/21 05:30 Intake & Output 02/09/21 02/10/21 02/10/21 18:59 06:59 18:59 Intake Total 810 Output Total 169 Balance 810 -169 Intake: Intake, IV Titration 570 Amount Sodium Chloride 0.9% 1, 520 000 ml @ 130 mls/hr IV . Q7H42M [facility] Rx#:[id number] ceFAZolin 2 gm In Sodium 50 Chloride 0.9% 50 ml @ 100 mls/hr IVPB Q8HR [facility] Rx# :[id number] Oral 240 Output: Post Void Residual 169 Other: Voiding Method Bedside Commode Bedside Commode # Voids 2 - Labs CBC & Chem 7: 02/10/21 05:15 02/10/21 05:15 Labs: Abnormal Lab Results - Last 24 Hours (Table) 02/09/21 02/09/21 02/10/21 Range/Units 17:14 21:01 05:15 WBC 12.8 H (3.8-10.6) k/uL Hgb 10.9 L (11.4-16.0) gm/dL Hct 33.9 L (34.0-46.0) % Sodium (137-145) mmol/L Carbon Dioxide (22-30) mmol/L BUN (7-17) mg/dL Creatinine (0.52-1.04) mg/dL Glucose (74-99) mg/dL POC Glucose (mg/dL) 143 H 217 H (75-99) mg/dL Calcium (8.4-10.2) mg/dL 02/10/21 02/10/21 02/10/21 Range/Units 05:15 06:43 12:28 WBC (3.8-10.6) k/uL Hgb (11.4-16.0) gm/dL Hct (34.0-46.0) % Sodium 130 L (137-145) mmol/L Carbon Dioxide 19 L (22-30) mmol/L BUN 57 H (7-17) mg/dL Creatinine 2.54 H (0.52-1.04) mg/dL Glucose 115 H (74-99) mg/dL POC Glucose (mg/dL) 142 H 130 H (75-99) mg/dL Calcium 7.8 L (8.4-10.2) mg/dL Microbiology - Last 24 Hours (Table) 02/06/21 22:08 Anaerobic Culture - Preliminary Toe - Left Third 02/06/21 15:00 Anaerobic Culture - Preliminary Toe - Left Third 02/06/21 22:08 Gram Stain - Final Toe - Left Third Wound Culture - Final Staphylococcus aureus 02/06/21 15:00 Gram Stain - Final Toe - Left Third Tissue Culture - Final Staphylococcus aureus <Miya Sargent - Last Filed: 02/10/21 16:38> Subjective Patient seen and examined independently. Patient was also seen by Mark Alonzo NP and case was discussed. I am in agreement with subjective, physical exam, assessment and plan as written above and amended below. Family at bedside and discussed that she has had history of kidney problems in the past as well as a rough life and history of recent back injury. They're unsure she has been consistently taking her insulin, though it sounds like she has not been. We discussed the present her home on 84 units of insulin this is likely result an unintentional overdose and hypoglycemia possibly relating in . They report that she does not typically take insulin and usually controls her sugars by what she eats and eating ev. She did start to have a rash approximately 2 days ago that has worsened today and is itchy. General: non toxic, no distress, appears at stated age Derm: Multiple small papules with purulent center covering arms, legs, and torso. warm, dry Head: atraumatic, normocephalic, symmetric Eyes: EOMI, no lid lag, anicteric sclera Ext: no gross muscle atrophy, no edema, no contractures Neuro: CN II-XI grossly intact, no tremors noted, moving all 4 extremities independently Psych: Alert, oriented, appropriate affect Objective - Vital Signs Vital signs: Vital Signs Temp 98.9 F 02/10/21 05:30 Pulse 78 02/10/21 05:30 Resp 18 02/10/21 05:30 BP 113/63 02/10/21 05:30 Pulse Ox 94 L 02/10/21 05:30 Intake & Output 02/09/21 02/10/21 02/10/21 18:59 06:59 18:59 Intake Total 810 Output Total 169 Balance 810 -169 Intake: Intake, IV Titration 570 Amount Sodium Chloride 0.9% 1, 520 000 ml @ 130 mls/hr IV . Q7H42M [facility] Rx#:[id number] ceFAZolin 2 gm In Sodium 50 Chloride 0.9% 50 ml @ 100 mls/hr IVPB Q8HR [facility] Rx# :[id number] Oral 240 Output: Post Void Residual 169 Other: Voiding Method Bedside Commode Bedside Commode # Voids 2 - Labs CBC & Chem 7: 02/10/21 05:15 02/10/21 05:15 Labs: Abnormal Lab Results - Last 24 Hours (Table) 02/09/21 02/09/21 02/10/21 Range/Units 17:14 21:01 05:15 WBC 12.8 H (3.8-10.6) k/uL Hgb 10.9 L (11.4-16.0) gm/dL Hct 33.9 L (34.0-46.0) % Sodium (137-145) mmol/L Carbon Dioxide (22-30) mmol/L BUN (7-17) mg/dL Creatinine (0.52-1.04) mg/dL Glucose (74-99) mg/dL POC Glucose (mg/dL) 143 H 217 H (75-99) mg/dL Calcium (8.4-10.2) mg/dL Urine Appearance (Clear) Urine Protein (Negative) Urine Ketones (Negative) Urine Blood (Negative) Urine Bacteria (None) /hpf 02/10/21 02/10/21 02/10/21 Range/Units 05:15 06:43 12:28 WBC (3.8-10.6) k/uL Hgb (11.4-16.0) gm/dL Hct (34.0-46.0) % Sodium 130 L (137-145) mmol/L Carbon Dioxide 19 L (22-30) mmol/L BUN 57 H (7-17) mg/dL Creatinine 2.54 H (0.52-1.04) mg/dL Glucose 115 H (74-99) mg/dL POC Glucose (mg/dL) 142 H 130 H (75-99) mg/dL Calcium 7.8 L (8.4-10.2) mg/dL Urine Appearance (Clear) Urine Protein (Negative) Urine Ketones (Negative) Urine Blood (Negative) Urine Bacteria (None) /hpf 02/10/21 Range/Units 15:55 WBC (3.8-10.6) k/uL Hgb (11.4-16.0) gm/dL Hct (34.0-46.0) % Sodium (137-145) mmol/L Carbon Dioxide (22-30) mmol/L BUN (7-17) mg/dL Creatinine (0.52-1.04) mg/dL Glucose (74-99) mg/dL POC Glucose (mg/dL) (75-99) mg/dL Calcium (8.4-10.2) mg/dL Urine Appearance Cloudy H (Clear) Urine Protein 2+ H (Negative) Urine Ketones Trace H (Negative) Urine Blood Small H (Negative) Urine Bacteria Rare H (None) /hpf Microbiology - Last 24 Hours (Table) 02/06/21 22:08 Anaerobic Culture - Preliminary Toe - Left Third 02/06/21 15:00 Anaerobic Culture - Preliminary Toe - Left Third 02/06/21 22:08 Gram Stain - Final Toe - Left Third Wound Culture - Final Staphylococcus aureus
--- NOTE | 2021-02-10 15:49 | PN ---
PROGRESS NOTE This is a 61-year-old diabetic female. Patient came with marked redness of the dorsal aspect of the foot with gangrene changes involving the toe. Patient went for ray amputation. Today we have changed the dressing. Some mild drainage noted. We cleaned the wound and placed Aquacel Silver. The patient is on IV antibiotic under care of Infectious Disease. The patient is growing MRSA. Redness on the dorsal aspect of the left. PLAN: Continue with local wound care. Today, found to have a high BUN and creatinine. The patient is going to have some ultrasound of the kidney. MMODL / IJN: [id number] /
[2021-02-10 16:35] LABS: Appearance,Urine Cloudy (Clear); Bacteria,Urine Rare /hpf; Bilirubin,Urine Negative (Negative); Blood,Urine Small (Negative); Color,Urine Yellow; Glucose,Urine (UA) Negative (Negative); Ketones,Urine Trace (Negative); Leukocyte Esterase,Urine Negative (Negative); Nitrite,Urine Negative (Negative); PH, Urine 5.5 (5.0-8.0); Protein,Urine 2+ (Negative); RBC,Urine 5 /hpf (0-5); Specific Gravity,Urine 1.012 (1.001-1.035); Squamous Epithelial Cell,Urine 4 /hpf (0-4); Urobilinogen,Urine <2.0 mg/dL (<2.0); WBC,Urine 2 /hpf (0-5)
--- NOTE | 2021-02-10 16:40 | PN ---
PROGRESS NOTE DATE OF SERVICE: 02/10/2021 REASON FOR FOLLOWUP: Left foot cellulitis and abscess. INTERVAL HISTORY: The patient is afebrile. The patient is feeling better. Breathing comfortably. Overall pain and discomfort to the left foot is decreased. No chest pain, shortness of breath, cough, abdominal pain. No diarrhea. PHYSICAL EXAMINATION: Blood pressure 113/63 with a pulse of 73, temperature 98.9. She is 94% on room air. General description is a middle-aged female up in the chair in no distress. Respiratory system: Unlabored breathing. Clear to auscultation anteriorly. Heart S1, S2. Regular rate and rhythm. Abdomen soft, no tenderness. Left foot is currently dressed. No drainage on the dressing. LABS: BUN of 57, creatinine is 2.54. DIAGNOSTIC IMPRESSION AND PLAN: Patient with left foot abscess and cellulitis secondary to MSSA. The patient on cefazolin. She could not afford the outpatient IV Rocephin which is 500 dollars. Plan will be for oral Keflex. However, the patient did have worsening of her kidney function and need to monitor closely and possible Nephrology evaluation. at the bedside. Questions answered. MMODL / IJN: [id number] /
[2021-02-10 17:25] LABS: Glucose,Whole Blood 163 mg/dL (75-99)
[2021-02-10] MEDS ORDERED: methylPREDNISolone SOD SUCCI 125 MG/2 ML VIAL IV STA (18:18)
[2021-02-10] MEDS ORDERED: diphenhydrAMINE 50 MG/ML 1 ML VIAL IVP STA (18:18)
[2021-02-10] MEDS ORDERED: FAMOTIDINE 20 MG/2 ML VIAL IV SCH (18:30)
--- NOTE | 2021-02-10 18:31 | XR ---
EXAMINATION TYPE: XR chest 1V portable DATE OF EXAM: 02/10/2021 COMPARISON: NONE HISTORY: Short of breath TECHNIQUE: Single view FINDINGS: Heart and mediastinum are normal. There is some pulmonary interstitial edema. There is some coalescent density around the pulmonary effie. There is no pleural effusion. IMPRESSION: Moderate pulmonary interstitial and airspace edema. Normal heart.
[2021-02-10 18:33] LABS: ABG Base Excess -5.1 mmol/L; ABG HCO3 20 mmol/L (21-25); ABG Oxygen Saturation 92.7 % (94-97); ABG PCO2 31 mmHg (35-45); ABG PH 7.41 (7.35-7.45); ABG PO2 62 mmHg (83-108); ABG TCO2 21 mmol/L (19-24); Allen Test Performed? Yes
--- NOTE | 2021-02-10 18:34 | P.PN ---
Progress Note - Text Progress Note Date: 02/10/21 Was called to bedside with reports the patient was experiencing shortness of breath and chest pain. Found patient to be 88% on room air complaining of pain to midsternal chest. Placed on 2 L O2 via nasal cannula with SpO2 increasing to 92%. EKG completed showing normal sinus rhythm 78 bpm. vital signs stable with BP 143/69, heart rate 93, respiratory rate is 16, and temp of 98.9F. Patient given Benadryl 50 mg IVP, Pepcid 20 mg IVP, and Solu-Medrol 125 mg IVP. Order placed for STAT CBC, CMP, Trop, D-Dimer, and ABG. RN instructed to hold cefazolin at this time pending further results .
[2021-02-10 18:40] LABS: ALT 9 U/L (4-34); AST 33 U/L (14-36); African American GFR (CKD) 22 (>60 ml/min/1.73 sqM); Albumin 2.7 g/dL (3.5-5.0); Albumin/Globulin Ratio 0.8; Alkaline Phosphatase 113 U/L (38-126); Anion Gap 8 mmol/L; Blood Urea Nitrogen 62 mg/dL (7-17); Calcium 8.1 mg/dL (8.4-10.2); Carbon Dioxide 18 mmol/L (22-30); Chloride 103 mmol/L (98-107); Globulin 3.5 g/dL; Glucose 148 mg/dL (74-99); Non-African American GFR(CKD) 19 (>60 ml/min/1.73 sqM); Potassium 5.1 mmol/L (3.5-5.1); Sodium 129 mmol/L (137-145); Total Bilirubin <0.1 mg/dL (0.2-1.3); Total Protein 6.2 g/dL (6.3-8.2)
[2021-02-10 18:59] LABS: Basophils % (A) 0 %; Eosinophils # (A) 0.1 k/uL (0-0.7); Eosinophils % (A) 1 %; HCT 32.8 % (34.0-46.0); Lymphocytes # (A) 1.5 k/uL (1.0-4.8); Lymphocytes % (A) 12 %; MCH 27.3 pg (25.0-35.0); MCHC 33.6 g/dL (31.0-37.0); MCV 81.2 fL (80.0-100.0); Mean Platelet Volume 6.7; Monocytes # (A) 0.4 k/uL (0-1.0); Monocytes % (A) 3 %; Neutrophils # (A) 10.6 k/uL (1.3-7.7); Neutrophils % (A) 83 %; Platelet Count 411 k/uL (150-450); RBC 4.04 m/uL (3.80-5.40); RDW 13.7 % (11.5-15.5); WBC 12.8 k/uL (3.8-10.6)
[2021-02-10] MEDS ORDERED: HEPARIN SODIUM 1,000 UN/ML (10ML VL) IV PRN (19:57)
[2021-02-10] MEDS ORDERED: HEPARIN SODIUM 1,000 UN/ML (10ML VL) IV ONE (19:57)
[2021-02-10 20:24] LABS: INR 0.9 (<1.2); Partial Thromboplastin Time 23.9 sec (22.0-30.0); Prothrombin Time 9.9 sec (9.0-12.0)
--- NOTE | 2021-02-10 20:27 | US ---
EXAMINATION TYPE: US venous doppler duplex LE DATE OF EXAM: 02/10/2021 8:03 PM COMPARISON: NONE CLINICAL HISTORY: d-dimer elevated. Elevated D-Dimer SIDE PERFORMED: Bilateral TECHNIQUE: The lower extremity deep venous system is examined utilizing real time linear array sonog lydia with graded compression, doppler sonography and color-flow sonography. VESSELS IMAGED: Common Femoral Vein Deep Femoral Vein Greater Saphenous Vein * Femoral Vein Popliteal Vein Small Saphenous Vein * Proximal Calf Veins (* superficial vessels) Right Leg: Negative for DVT Left Leg: Negative for DVT, enlarged lymph node in left groin IMPRESSION: No evidence of deep vein thrombosis in both legs.
[2021-02-10] MEDS: HEPARIN SOD,PORK IN 0.45% NACL 25,000 UNIT in 0.45% NACL 1 250ML.BAG IV SCH (20:33)
[2021-02-10 21:36] LABS: Glucose,Whole Blood 140 mg/dL (75-99)
[2021-02-11] MEDS: ACETAMINOPHEN TAB 325 MG TAB PO PRN ×2 (02:36→17:38)
[2021-02-11] MEDS: SODIUM CHLORIDE 0.9% 1,000 ML IV SCH ×3 (05:22→09:04)
[2021-02-11 08:00] LABS: Glucose,Whole Blood 227 mg/dL (75-99)
[2021-02-11] MEDS: FOLIC ACID 1 MG TAB PO SCH (09:05)
[2021-02-11] MEDS: FAMOTIDINE 20 MG TAB PO SCH (09:05)
[2021-02-11] MEDS: CYANOCOBALAMIN 500 MCG TAB PO SCH (09:05)
[2021-02-11] MEDS: INSULIN ASPART (NovoLOG) 100 UNIT/ML VIAL SQ SCH ×4 (09:05→20:41)
[2021-02-11] MEDS: PREGABALIN 75 MG CAP PO SCH ×2 (09:05→20:41)
[2021-02-11] MEDS: INSULIN DETEMIR (LEVEMIR) 100 UNIT/ML SYR SQ SCH (09:05)
[2021-02-11] MEDS: HYDROCORTISONE 1% CREAM 454 GM JAR TOPICAL SCH ×3 (09:25→20:41)
--- NOTE | 2021-02-11 11:52 | NM ---
EXAMINATION TYPE: NM pul vent and perfuse DATE OF EXAM: 02/11/2021 COMPARISON: NONE HISTORY: Elevated d-dimer TECHNIQUE: Utilizing inhalation of 66.0 mCi Tc 99m DTPA aerosol and intravenous injection of 5.3 mCi of Tc 99m MAA, ventilation and perfusion images are acquired post injection in multiple projections. FINDINGS AND IMPRESSION: Low probability lung VQ scan.
[2021-02-11 11:59] LABS: Glucose,Whole Blood 211 mg/dL (75-99)
[2021-02-11] MEDS ORDERED: DAPTOmycin 500 MG in SODIUM CHLORIDE 0.9% 50 ML IVPB SCH (12:00)
[2021-02-11] MEDS: HEPARIN SOD,PORK IN 0.45% NACL 25,000 UNIT in 0.45% NACL 1 250ML.BAG IV SCH (12:05)
[2021-02-11 12:06] LABS: Basophils % (A) 0 %; Eosinophils % (A) 0 %; HGB 11.5 gm/dL (11.4-16.0); Lymphocytes # (A) 1.1 k/uL (1.0-4.8); Lymphocytes % (A) 10 %; MCH 27.4 pg (25.0-35.0); MCHC 33.7 g/dL (31.0-37.0); MCV 81.4 fL (80.0-100.0); Mean Platelet Volume 6.7; Monocytes # (A) 0.3 k/uL (0-1.0); Monocytes % (A) 3 %; Neutrophils # (A) 9.6 k/uL (1.3-7.7); Neutrophils % (A) 86 %; Platelet Count 443 k/uL (150-450); RBC 4.18 m/uL (3.80-5.40); RDW 13.7 % (11.5-15.5); WBC 11.1 k/uL (3.8-10.6)
--- NOTE | 2021-02-11 14:19 | P.NPCON ---
History of Present Illness - Reason for Consult Consult date: 02/11/21 acute renal failure - Chief Complaint Acute kidney injury - History of Present Illness This is a 61-year-old female seen in consultation because of acute kidney injury. Her creatinine was 0.7 on 02/07/2021 and the next creatinine available on 02/09/2021 went up to 2.1. She was admitted with headache as well as left foot swelling and possible cellulitis. She was given vancomycin. Vancomycin level was 21.3 on 02/07/2021. Subsequently it has been discontinued. While signs have been stable during this period of time and the creatinine went up although the blood pressure is somewhat soft at times. No nausea vomiting no diarrhea no abdominal pain no fever no chills no shortness of breath. She is known with diabetes mellitus, and is hard of hearing,'s history of tumor removed from stomach and 21 and cyst excision back surgery and right shoulder and right elbow surgery. She denies any history of kidney stones hematuria no family history of kidney disease. Does have some issues with urinary incontinence at times. 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 Past Anesthesia/Blood Transfusion Reactions: No Reported Reaction Past Psychological History: Anxiety Smoking Status: Never smoker Past Alcohol Use History: None Reported Past Drug Use History: None Reported - Past Family History family Family Medical History: No Reported History Medications and Allergies Home Medications Medication Instructions Recorded Confirmed Type DULoxetine HCL [Cymbalta] 30 mg PO DAILY 02/09/21 02/09/21 History Linagliptin [Tradjenta] 5 mg PO DAILY 02/09/21 02/09/21 History Nortriptyline [Pamelor] 50 mg PO HS 02/09/21 02/09/21 History Cephalexin [Keflex] 500 mg PO Q6HR 14 Days #56 cap 02/10/21 Rx Insulin Detemir (Levemir) [Levemir] 10 unit SQ DAILY@0700 #1 dispenser 02/10/21 Rx Pregabalin [Lyrica] 75 mg PO BID 30 Days #60 cap 02/10/21 Rx Allergies Allergy/AdvReac Type Severity Reaction Status Date / Time No Known Allergies Allergy Verified 01/31/21 18:03 Physical Exam Vitals: Vital Signs Temp Pulse Pulse Resp BP BP Pulse Ox 02/11/21 08:00 72 20 02/11/21 04:43 97.9 F 71 20 108/66 96 02/10/21 19:30 98.1 F 76 20 153/69 94 L 02/10/21 18:01 83 16 143/69 90 L Intake and Output 02/10/21 02/11/21 02/11/21 22:59 06:59 14:59 Intake Total 1350 330.135 153.493 Output Total 350 Balance 1000 330.135 153.493 Intake: Intake, IV Titration 1300 90.135 153.493 Amount Heparin Sod,Pork in 0.45% 90.135 153.493 NaCl 25,000 unit In 0.45 % NaCl 1 250ml.bag @ 18 UNITS/KG/HR 14.696 mls/hr IV .Q17H1M [facility] Rx#: [id number] Sodium Chloride 0.9% 1, 1300 000 ml @ 130 mls/hr IV . Q7H42M [facility] Rx#:[id number] Oral 50 240 Output: Post Void Residual 350 Other: Voiding Method Toilet Toilet Bedside Commode Bedside Commode # Voids 3 Currently on exam she is awake alert oriented cheerful. HEENT exam no JVP neck is supple no facial asymmetry Lungs clear to auscultation good air entry bilaterally Heart sounds unremarkable for any murmur rub gallop Abdomen soft nontender no bladder tenderness Extreme exam was minimal edema on the left and the left foot is bandaged. The toes are visible and the are somewhat bruised. Neurologically awake alert oriented but hard of hearing Results - Lab Results Most recent lab results ABG pH 7.41 (7.35-7.45) 02/10/21 18:20 ABG pCO2 31 mmHg (35-45) L 02/10/21 18:20 ABG pO2 62 mmHg (83-108) L 02/10/21 18:20 ABG HCO3 20 mmol/L (21-25) L 02/10/21 18:20 ABG O2 Saturation 92.7 % (94-97) L 02/10/21 18:20 Calcium 8.1 mg/dL (8.4-10.2) L 02/10/21 18:12 Magnesium 2.1 mg/dL (1.6-2.3) 02/10/21 05:15 02/11/21 11:34 02/10/21 18:12 Assessment and Plan Assessment: Impression 1. Acute kidney injury with creatinine going up from 0.7, on 02/07/2021 2-2.1 in 2 days' time on 02/09/2021, with the vancomycin level being 21.3 on 02/07/2021 unit possibility of acute interstitial nephritis is considered, urine eosinophil is 0. Urinalysis is not very suggestive though, usually you see RBCs and WBCs. She has 5 RBCs and 2 WBCs and which could be from diabetic nephropathy. 2. Diabetes mellitus with left foot cellulitis. With associated diabetic nephropathy with 2+ proteinuria 3. Deafness and pure for neuropathy but no hematuria or family history to suggest [place] syndrome. The acute kidney injury is not explained by this diagnosis and is unrelated. 4. Hyponatremia secondary acute kidney injury. 5. Mild degree of non-gap acidosis from acute kidney injury. Recommendation 1. Sodium bicarb and 50 4 times a day 2. Currently will watch her creatinine and expected to improve in the 4-48 hours 3. Will hold off steroids at this time we will reassess tomorrow if we should treat for acute incision nephritis Thank you for this consultation and we'll continue to follow
--- NOTE | 2021-02-11 14:55 | P.PN ---
<Mark Alonzo - Last Filed: 02/11/21 14:48> Subjective Progress Note Date: 02/11/21 Hospital course: Patient is a 61-year-old female with a past medical history of insulin-dependent diabetes mellitus. She presented to the hospital on 01/31/21 with a chief complaint of left foot infection. She was found to have significant leukocytosis with WBC count of 25.2. X-ray left foot revealing mild soft tissue swelling calcaneal spurring no acute bony abnormality with no signs of os teomyelitis. CT left foot revealing prominent generalized soft tissue swelling with no discrete abscess identified. She underwent debridement, I and D and third toe amputation by Dr. Hammonds on 02/06/21. Patient currently receiving IV antibiotic vancomycin. Wound culture preliminary results positive for staph aureus. Blood culture showing no growth after 144 hours. She is admitted under our services with consultation to infectious disease and vascular surgery. Physical exam: 02/11/21: Patient was seen and fully evaluated at bedside this morning. Sitting up in chair and she reports feeling 100% better from when she fell yesterday. Patient reports this morning she is no longer having any chest pain/pressure or shortness of breath. Patient states rash is improving. Patient taken down for VQ scan negative for reports of PE at this time reporting low probability. Dopplers of bilateral lower extremities were negative for DVT showing lymph node enlargement in the left groin. Vital signs reviewed and stable. General: Nontoxic, no distress and appears stated age. Derm: Skin warm and dry, normal coloration for ethnicity. Red, bumpy, pustule- like rash over legs, abdomen, breasts, and back. Head: Atraumatic, normocephalic and symmetric. Eyes: EOMs intact, no lid lag, and anicteric sclera. Mouth: no lip lesions, mucus membranes moist. Cardiovascular: regular rate and rhythm with normal S1S2, no murmur, positive posterior tibial pulses bilaterally, and cap refill < 2 seconds. Lungs: Respirations even, regular, and unlabored on room air. Lungs CTA bilaterally, no rhonchi, no rales, no wheezing, and no accessory muscle usage. Abdominal: soft, nontender to palpation, no guarding, no appreciable organomegaly Ext: ROM intact. No gross muscle atrophy, no edema, no contractures. Left foot postsurgical dressing intact. Neuro: Speech clear, face symmetrical and CN II-XII grossly intact with no noted focal neuro deficits. Psych: Alert and oriented to person, place, time, and situation. Appropriate and pleasant affect. Assessment and Plan of Care: Cellulitis of the left foot with an infected puncture wound to the plantar aspect of the third toe, currently status post debridement, I&D and third toe amputation by Dr. Hammonds on 02/06/21 -IV antibiotics changed to cefazolin after wound culture positive for Staphy lococcus aureus (MSSA) -Infectious disease following, recommending patient continue with IV antibiotics upon discharge and currently discussing with case management for possible arrangements. -Vascular surgery following -Symptomatic care and pain management -Wound care -Wound culture positive for staph aureus Acute kidney injury -Worsening renal function with BUN 62, creatinine 2.60, and GFR 19. -Renal and bladder ultrasound negative for abnormalities. -Urinalysis negative for infection. -Urine eosinophils negative -Nephrology consulted, appreciate further recommendations -Cefazolin was discontinued. Per recommendation of infectious disease patient started on daptomycin. -Stat urinalysis, urine Eosinophil, and uric acid to be obtained. -Avoid nephrotoxic medications. Elevated d-dimer accompanied by chest pain and shortness of breath, PE and DVT ruled out -D-dimer is 6.04. -Heparin infusion initiated. -Bilateral lower extremity Dopplers completed negative for DVTs. -VQ scan completed negative for acute PE showing low probability. -Heparin infusion discontinued at this time. Severe sepsis without septic shock -Treated with aggressive IV fluid hydration and antibiotic. -Lactic acid was normal. -Blood culture negative, showing no growth after 144 hours. -Wound cultures positive for staph aureus -IV antibiotics changed to cefazolin after wound culture positive for MSSA -Infectious disease following Severe frontal headache, now resolved. -Computed tomography scan in the ER showed no acute findings negative for acute intercranial process. Type 2 diabetes insulin-dependent diabetes mellitus -Hold Glucophage and placed on glycemic protocol with sliding scale along with Levemir 10 units daily. 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 -Heart healthy and carb consistent diet. CODE STATUS: Full code DVT prophylaxis: SCDs Discussed with: Patient and RN Anticipated discharge date: Clinical course to determine Anticipated discharge place: Home A total of 45 minutes was spent on the care of this complex patient more than 50% of the time was spent in counseling and care coordination. Objective - Vital Signs Vital signs: Vital Signs Temp 97.9 F 02/11/21 04:43 Pulse 71 02/11/21 04:43 Resp 20 02/11/21 04:43 BP 108/66 02/11/21 04:43 Pulse Ox 96 02/11/21 04:43 Intake & Output 02/10/21 02/11/21 02/11/21 18:59 06:59 18:59 Intake Total 1300 380.135 Output Total 50 300 Balance 1250 80.135 Intake: Intake, IV Titration 1300 90.135 Amount Heparin Sod,Pork in 0.45% 90.135 NaCl 25,000 unit In 0.45 % NaCl 1 250ml.bag @ 18 UNITS/KG/HR 14.696 mls/hr IV .Q17H1M [facility] Rx#: [id number] Sodium Chloride 0.9% 1, 1300 000 ml @ 130 mls/hr IV . Q7H42M [facility] Rx#:[id number] Oral 290 Output: Post Void Residual 50 300 Other: Voiding Method Toilet Bedside Commode # Voids 3 - Labs CBC & Chem 7: 02/11/21 11:34 02/10/21 18:12 Labs: Abnormal Lab Results - Last 24 Hours (Table) 02/10/21 02/10/21 02/10/21 Range/Units 12:28 15:55 17:23 WBC (3.8-10.6) k/uL Hgb (11.4-16.0) gm/dL Hct (34.0-46.0) % Neutrophils # (1.3-7.7) k/uL APTT (22.0-30.0) sec D-Dimer (<0.60) mg/L FEU ABG pCO2 (35-45) mmHg ABG pO2 (83-108) mmHg ABG HCO3 (21-25) mmol/L ABG O2 Saturation (94-97) % Sodium (137-145) mmol/L Carbon Dioxide (22-30) mmol/L BUN (7-17) mg/dL Creatinine (0.52-1.04) mg/dL Glucose (74-99) mg/dL POC Glucose (mg/dL) 130 H 163 H (75-99) mg/dL Calcium (8.4-10.2) mg/dL Total Bilirubin (0.2-1.3) mg/dL Total Protein (6.3-8.2) g/dL Albumin (3.5-5.0) g/dL Urine Appearance Cloudy H (Clear) Urine Protein 2+ H (Negative) Urine Ketones Trace H (Negative) Urine Blood Small H (Negative) Urine Bacteria Rare H (None) /hpf 02/10/21 02/10/21 02/10/21 Range/Units 18:12 18:12 18:12 WBC 12.8 H (3.8-10.6) k/uL Hgb 11.0 L (11.4-16.0) gm/dL Hct 32.8 L (34.0-46.0) % Neutrophils # 10.6 H (1.3-7.7) k/uL APTT (22.0-30.0) sec D-Dimer 6.04 H (<0.60) mg/L FEU ABG pCO2 (35-45) mmHg ABG pO2 (83-108) mmHg ABG HCO3 (21-25) mmol/L ABG O2 Saturation (94-97) % Sodium 129 L (137-145) mmol/L Carbon Dioxide 18 L (22-30) mmol/L BUN 62 H (7-17) mg/dL Creatinine 2.60 H (0.52-1.04) mg/dL Glucose 148 H (74-99) mg/dL POC Glucose (mg/dL) (75-99) mg/dL Calcium 8.1 L (8.4-10.2) mg/dL Total Bilirubin <0.1 L (0.2-1.3) mg/dL Total Protein 6.2 L (6.3-8.2) g/dL Albumin 2.7 L (3.5-5.0) g/dL Urine Appearance (Clear) Urine Protein (Negative) Urine Ketones (Negative) Urine Blood (Negative) Urine Bacteria (None) /hpf 02/10/21 02/10/21 02/11/21 Range/Units 18:20 21:33 01:31 WBC (3.8-10.6) k/uL Hgb (11.4-16.0) gm/dL Hct (34.0-46.0) % Neutrophils # (1.3-7.7) k/uL APTT 40.6 H (22.0-30.0) sec D-Dimer (<0.60) mg/L FEU ABG pCO2 31 L (35-45) mmHg ABG pO2 62 L (83-108) mmHg ABG HCO3 20 L (21-25) mmol/L ABG O2 Saturation 92.7 L (94-97) % Sodium (137-145) mmol/L Carbon Dioxide (22-30) mmol/L BUN (7-17) mg/dL Creatinine (0.52-1.04) mg/dL Glucose (74-99) mg/dL POC Glucose (mg/dL) 140 H (75-99) mg/dL Calcium (8.4-10.2) mg/dL Total Bilirubin (0.2-1.3) mg/dL Total Protein (6.3-8.2) g/dL Albumin (3.5-5.0) g/dL Urine Appearance (Clear) Urine Protein (Negative) Urine Ketones (Negative) Urine Blood (Negative) Urine Bacteria (None) /hpf 02/11/21 Range/Units 07:57 WBC (3.8-10.6) k/uL Hgb (11.4-16.0) gm/dL Hct (34.0-46.0) % Neutrophils # (1.3-7.7) k/uL APTT (22.0-30.0) sec D-Dimer (<0.60) mg/L FEU ABG pCO2 (35-45) mmHg ABG pO2 (83-108) mmHg ABG HCO3 (21-25) mmol/L ABG O2 Saturation (94-97) % Sodium (137-145) mmol/L Carbon Dioxide (22-30) mmol/L BUN (7-17) mg/dL Creatinine (0.52-1.04) mg/dL Glucose (74-99) mg/dL POC Glucose (mg/dL) 227 H (75-99) mg/dL Calcium (8.4-10.2) mg/dL Total Bilirubin (0.2-1.3) mg/dL Total Protein (6.3-8.2) g/dL Albumin (3.5-5.0) g/dL Urine Appearance (Clear) Urine Protein (Negative) Urine Ketones (Negative) Urine Blood (Negative) Urine Bacteria (None) /hpf <Miya Sargent - Last Filed: 02/11/21 17:57> Subjective Patient seen and examined independently. Patient was also seen by Mark Alonzo NP and case was discussed. I am in agreement with subjective, physical exam, as sessment and plan as written above and amended below. Patient denies any additional chest discomfort or shortness of breath. Her rash is no longer itchy after receiving Solu-Medrol. Denies any nausea, vomiting, diarrhea. Has had some oral intake but still not much. Discussed with nephrology. ESR is elevated but could be reflective of infection. Hyperkalemia -Was given cocktail Acute renal failure-undetermined etiology. Renal ultrasound demonstrated hypertrophy of both kidneys but no acute changes. Urinalysis now with 2+ proteinuria was trace prior. Concerns for possible developing nephritic versus nephrotic syndrome versus acute interstitial nephritis. General: non toxic, no distress, appears at stated age Derm: Diffuse pinpoint erythematous rash without pustules warm, dry Head: atraumatic, normocephalic, symmetric Eyes: EOMI, no lid lag, anicteric sclera Mouth: no lip lesion, mucus membranes moist Cardiovascular: S1S2 reg, no murmur, positive posterior tibial pulse bilateral, Lungs: CTA bilateral, no rhonchi, no rales , no accessory muscle use Abdominal: soft, nontender to palpation, no guarding, no appreciable organomegaly Ext: no gross muscle atrophy, 2+ edema, no contractures Neuro: CN II-XI grossly intact, no focal neuro deficits Psych: Alert, oriented, appropriate affect Objective - Vital Signs Vital signs: Vital Signs Temp 97.7 F 02/11/21 11:51 Pulse 80 02/11/21 15:59 Resp 16 02/11/21 11:51 BP 161/71 02/11/21 11:51 Pulse Ox 98 02/11/21 11:51 Intake & Output 02/10/21 02/11/21 02/11/21 18:59 06:59 18:59 Intake Total 1300 380.135 153.493 Output Total 50 300 Balance 1250 80.135 153.493 Intake: Intake, IV Titration 1300 90.135 153.493 Amount Heparin Sod,Pork in 0.45% 90.135 153.493 NaCl 25,000 unit In 0.45 % NaCl 1 250ml.bag @ 18 UNITS/KG/HR 14.696 mls/hr IV .Q17H1M [facility] Rx#: [id number] Sodium Chloride 0.9% 1, 1300 000 ml @ 130 mls/hr IV . Q7H42M [facility] Rx#:[id number] Oral 290 Output: Post Void Residual 50 300 Other: Voiding Method Toilet Toilet Bedside Commode Bedside Commode # Voids 3 - Labs CBC & Chem 7: 02/11/21 11:34 02/11/21 11:34 Labs: Abnormal Lab Results - Last 24 Hours (Table) 02/10/21 02/10/21 02/10/21 Range/Units 18:12 18:12 18:12 WBC 12.8 H (3.8-10.6) k/uL Hgb 11.0 L (11.4-16.0) gm/dL Hct 32.8 L (34.0-46.0) % Neutrophils # 10.6 H (1.3-7.7) k/uL ESR (0-20) mm/hr APTT (22.0-30.0) sec D-Dimer 6.04 H (<0.60) mg/L FEU ABG pCO2 (35-45) mmHg ABG pO2 (83-108) mmHg ABG HCO3 (21-25) mmol/L ABG O2 Saturation (94-97) % Sodium 129 L (137-145) mmol/L Potassium (3.5-5.1) mmol/L Carbon Dioxide 18 L (22-30) mmol/L BUN 62 H (7-17) mg/dL Creatinine 2.60 H (0.52-1.04) mg/dL Glucose 148 H (74-99) mg/dL POC Glucose (mg/dL) (75-99) mg/dL Calcium 8.1 L (8.4-10.2) mg/dL Total Bilirubin <0.1 L (0.2-1.3) mg/dL Alkaline Phosphatase (38-126) U/L Lactate Dehydrogenase (313-618) U/L C-Reactive Protein (<1.0) mg/dL Total Protein 6.2 L (6.3-8.2) g/dL Albumin 2.7 L (3.5-5.0) g/dL 02/10/21 02/10/21 02/11/21 Range/Units 18:20 21:33 01:31 WBC (3.8-10.6) k/uL Hgb (11.4-16.0) gm/dL Hct (34.0-46.0) % Neutrophils # (1.3-7.7) k/uL ESR (0-20) mm/hr APTT 40.6 H (22.0-30.0) sec D-Dimer (<0.60) mg/L FEU ABG pCO2 31 L (35-45) mmHg ABG pO2 62 L (83-108) mmHg ABG HCO3 20 L (21-25) mmol/L ABG O2 Saturation 92.7 L (94-97) % Sodium (137-145) mmol/L Potassium (3.5-5.1) mmol/L Carbon Dioxide (22-30) mmol/L BUN (7-17) mg/dL Creatinine (0.52-1.04) mg/dL Glucose (74-99) mg/dL POC Glucose (mg/dL) 140 H (75-99) mg/dL Calcium (8.4-10.2) mg/dL Total Bilirubin (0.2-1.3) mg/dL Alkaline Phosphatase (38-126) U/L Lactate Dehydrogenase (313-618) U/L C-Reactive Protein (<1.0) mg/dL Total Protein (6.3-8.2) g/dL Albumin (3.5-5.0) g/dL 02/11/21 02/11/21 02/11/21 Range/Units 07:57 11:34 11:34 WBC 11.1 H (3.8-10.6) k/uL Hgb (11.4-16.0) gm/dL Hct (34.0-46.0) % Neutrophils # 9.6 H (1.3-7.7) k/uL ESR 84 H (0-20) mm/hr APTT (22.0-30.0) sec D-Dimer (<0.60) mg/L FEU ABG pCO2 (35-45) mmHg ABG pO2 (83-108) mmHg ABG HCO3 (21-25) mmol/L ABG O2 Saturation (94-97) % Sodium 130 L (137-145) mmol/L Potassium 5.9 H (3.5-5.1) mmol/L Carbon Dioxide 14 L (22-30) mmol/L BUN 69 H (7-17) mg/dL Creatinine 2.66 H (0.52-1.04) mg/dL Glucose 194 H (74-99) mg/dL POC Glucose (mg/dL) 227 H (75-99) mg/dL Calcium 8.3 L (8.4-10.2) mg/dL Total Bilirubin 0.1 L (0.2-1.3) mg/dL Alkaline Phosphatase 127 H (38-126) U/L Lactate Dehydrogenase 882 H (313-618) U/L C-Reactive Protein 5.5 H (<1.0) mg/dL Total Protein (6.3-8.2) g/dL Albumin 3.0 L (3.5-5.0) g/dL 02/11/21 02/11/21 02/11/21 Range/Units 11:34 11:52 17:21 WBC (3.8-10.6) k/uL Hgb (11.4-16.0) gm/dL Hct (34.0-46.0) % Neutrophils # (1.3-7.7) k/uL ESR (0-20) mm/hr APTT 50.7 H (22.0-30.0) sec D-Dimer (<0.60) mg/L FEU ABG pCO2 (35-45) mmHg ABG pO2 (83-108) mmHg ABG HCO3 (21-25) mmol/L ABG O2 Saturation (94-97) % Sodium (137-145) mmol/L Potassium (3.5-5.1) mmol/L Carbon Dioxide (22-30) mmol/L BUN (7-17) mg/dL Creatinine (0.52-1.04) mg/dL Glucose (74-99) mg/dL POC Glucose (mg/dL) 211 H 249 H (75-99) mg/dL Calcium (8.4-10.2) mg/dL Total Bilirubin (0.2-1.3) mg/dL Alkaline Phosphatase (38-126) U/L Lactate Dehydrogenase (313-618) U/L C-Reactive Protein (<1.0) mg/dL Total Protein (6.3-8.2) g/dL Albumin (3.5-5.0) g/dL Microbiology - Last 24 Hours (Table) 02/06/21 22:08 Anaerobic Culture - Final Toe - Left Third 02/06/21 15:00 Anaerobic Culture - Final Toe - Left Third
[2021-02-11 14:58] LABS: ALT 14 U/L (4-34); AST 27 U/L (14-36); African American GFR (CKD) 22 (>60 ml/min/1.73 sqM); Albumin/Globulin Ratio 0.8; Alkaline Phosphatase 127 U/L (38-126); Anion Gap 12 mmol/L; Blood Urea Nitrogen 69 mg/dL (7-17); C Reactive Protein 5.5 mg/dL (<1.0); Calcium 8.3 mg/dL (8.4-10.2); Carbon Dioxide 14 mmol/L (22-30); Chloride 104 mmol/L (98-107); Globulin 3.7 g/dL; Glucose 194 mg/dL (74-99); LDH 882 U/L (313-618); Non-African American GFR(CKD) 19 (>60 ml/min/1.73 sqM); Potassium 5.9 mmol/L (3.5-5.1); Sodium 130 mmol/L (137-145); Total Bilirubin 0.1 mg/dL (0.2-1.3); Total Protein 6.7 g/dL (6.3-8.2)
[2021-02-11 15:09] LABS: Erythrocyte Sedimentation Rate 84 mm/hr (0-20)
[2021-02-11] MEDS ORDERED: ALBUTEROL NEB (CONC) 2.5 MG/0.5 ML INHALATION ONE (15:30)
[2021-02-11] MEDS ORDERED: DEXTROSE 50% SYRINGE 50 ML IVP ONE (15:30)
[2021-02-11] MEDS ORDERED: INSULIN REGULAR 100 UNIT/ML VIAL (IV) IV ONE (15:30)
[2021-02-11] MEDS ORDERED: SODIUM POLYSTYRENE SULFONATE 15 GM/60 ML BOTTLE PO ONE (15:30)
[2021-02-11] MEDS ORDERED: SODIUM BICARB 8.4% 50 ML SYR (1 MEQ/ML) IV ONE (15:30)
[2021-02-11] MEDS ORDERED: CALCIUM GLUCONATE 1 GM in SODIUM CHLORIDE 0.9% 100 ML IVPB ONE (15:30)
[2021-02-11] MEDS ORDERED: methylPREDNISolone SOD SUCCI 40 MG/ML 1 ML VIAL IV SCH (16:00)
[2021-02-11 17:23] LABS: Glucose,Whole Blood 249 mg/dL (75-99)
[2021-02-11] MEDS: SODIUM BICARBONATE TAB 650 MG TAB PO SCH ×2 (17:39→20:41)
[2021-02-11 20:27] LABS: Glucose,Whole Blood 266 mg/dL (75-99)
--- NOTE | 2021-02-11 21:11 | PN ---
PROGRESS NOTE DATE OF SERVICE: 02/11/2021 REASON FOR FOLLOWUP: Left third toe gangrene with left foot abscess. INTERVAL HISTORY: The patient is afebrile. The patient did have worsening shortness of breath and renal failure. Her discharge has been put on hold. The patient denies having any chest pain. No shortness of breath or cough. No abdominal pain and no worsening pain to the left foot. PHYSICAL EXAMINATION: Blood pressure 161/71 with a pulse of 65, temperature 97.7. She is 98% on 2 L nasal cannula. General description is a middle-aged female lying in bed in no distress. Respiratory system: Unlabored breathing, clear to auscultation anteriorly. Heart S1, S2. Regular rate and rhythm. Abdomen soft, no tenderness. Left foot is currently dressed, no drainage on the dressing. LABS: Hemoglobin is 11.5, white count 11.1, BUN of 69, creatinine 2.66. Urine culture is negative. UA was not significantly positive. DIAGNOSTIC IMPRESSION AND PLAN: Patient with left foot abscess and cellulitis due to MSSA in this patient who did have an abscess and failed to respond to the medical treatment status post amputation of the left third toe. Culture with MSSA. She has been on cefazolin, has been discontinued with concern for a rash and worsening of renal failure possibly due to nephritis, clinically doubt so Nephrology is on the case. The patient is covered with daptomycin, to continue. at the bedside, questions and concerns were answered. MMODL / IJN: [id number] / MTDD
[2021-02-12] MEDS: SODIUM CHLORIDE 0.9% 1,000 ML IV SCH ×4 (02:09→19:43)
[2021-02-12] MEDS: ACETAMINOPHEN TAB 325 MG TAB PO PRN ×2 (04:09→13:20)
[2021-02-12 04:38] LABS: Protein/Creatinine Ratio,Urine 2.181
[2021-02-12 06:24] LABS: HGB 10.2 gm/dL (11.4-16.0); MCH 27.3 pg (25.0-35.0); MCHC 34.1 g/dL (31.0-37.0); MCV 80.1 fL (80.0-100.0); Mean Platelet Volume 7.3; Platelet Count 428 k/uL (150-450); RBC 3.75 m/uL (3.80-5.40); RDW 14.1 % (11.5-15.5)
[2021-02-12 07:46] LABS: Glucose,Whole Blood 143 mg/dL (75-99)
--- NOTE | 2021-02-12 08:15 | XR ---
EXAMINATION TYPE: XR chest 1V DATE OF EXAM: 02/12/2021 COMPARISON: Chest radiograph February 10, 2021 HISTORY: Shortness of breath TECHNIQUE: Single frontal view of the chest is obtained. FINDINGS: Cardiomediastinal silhouette and pulmonary vasculature is within normal limits. Low lung volumes. Opacification of the left base and blunting of the left costophrenic angle, new fro m prior. IMPRESSION: Left effusion with adjacent atelectasis/pneumonia..
[2021-02-12] MEDS: PREGABALIN 75 MG CAP PO SCH ×2 (08:27→20:49)
[2021-02-12] MEDS: SODIUM BICARBONATE TAB 650 MG TAB PO SCH ×4 (08:27→20:49)
[2021-02-12] MEDS: INSULIN DETEMIR (LEVEMIR) 100 UNIT/ML SYR SQ SCH (08:27)
[2021-02-12] MEDS: INSULIN ASPART (NovoLOG) 100 UNIT/ML VIAL SQ SCH ×4 (08:27→20:50)
[2021-02-12] MEDS: FAMOTIDINE 20 MG TAB PO SCH (08:27)
[2021-02-12] MEDS: CYANOCOBALAMIN 500 MCG TAB PO SCH (08:27)
[2021-02-12] MEDS: HYDROCORTISONE 1% CREAM 454 GM JAR TOPICAL SCH ×3 (08:27→20:53)
[2021-02-12] MEDS: FOLIC ACID 1 MG TAB PO SCH (08:27)
[2021-02-12 09:35] LABS: African American GFR (CKD) 18.9 (60.0-200.0); Anion Gap 7.2 mmol/L (4.00-12.00); Calcium 8.1 mg/dL (8.7-10.3); Carbon Dioxide 17.8 mmol/L (21.6-31.8); Magnesium 1.9 mg/dL (1.5-2.4); Non-African American GFR(CKD) 16.3 (60.0-200.0); Potassium 5.2 mmol/L (3.5-5.5)
--- NOTE | 2021-02-12 10:02 | P.PN ---
<Mark Alonzo - Last Filed: 02/12/21 14:43> Subjective Progress Note Date: 02/12/21 Hospital course: Patient is a 61-year-old female with a past medical history of insulin-dependent diabetes mellitus. She presented to the hospital on 01/31/21 with a chief complaint of left foot infection. She was found to have significant leukocytosis with WBC count of 25.2. X-ray left foot revealing mild soft tissue swelling calcaneal spurring no acute bony abnormality with no signs of os teomyelitis. CT left foot revealing prominent generalized soft tissue swelling with no discrete abscess identified. She underwent debridement, I and D and third toe amputation by Dr. Hammonds on 02/06/21. Patient currently receiving IV antibiotic vancomycin. Wound culture preliminary results positive for staph aureus. Blood culture showing no growth after 144 hours. She is admitted under our services with consultation to infectious disease and vascular surgery. Physical exam: 02/12/21: Patient was seen and fully evaluated at bedside this morning. Patient was sitting up in chair this morning. Patient complaining of chills, body aches, sore throat, and shortness of breath. Patient with worsening leukoc ytosis with WBC count of 16.0 and low-grade temp of 100.5F. Patient on 3 L O2 via nasal cannula with SpO2 of 94%. She continues to have worsening renal function with BUN 81.0, creatinine 3.0, and GFR of 16.3. Patient denies having any headache, lightheadedness, dizziness, chest pain or palpitations, abdominal pain, nausea, vomiting, or experiencing any numbness/tingling/weakness in her extremities. Nephrology and infectious disease following. Patient being started on prednisone 30 mg twice daily for treatment of interstitial nephritis. Vital signs reviewed and stable. General: Nontoxic, no distress and appears stated age. Derm: Skin warm and dry, normal coloration for ethnicity. Red rash on legs, abdomen, and back improving looking more like vasculitis, as all pustules have resolved. Head: Atraumatic, normocephalic and symmetric. Eyes: EOMs intact, no lid lag, and anicteric sclera. Mouth: no lip lesions, mucus membranes moist. Cardiovascular: regular rate and rhythm with normal S1S2, no murmur, positive posterior tibial pulses bilaterally, and cap refill < 2 seconds. Lungs: Respirations even, regular, and unlabored on room air. Lungs CTA bilaterally, no rhonchi, no rales, no wheezing, and no accessory muscle usage. Abdominal: soft, nontender to palpation, no guarding, no appreciable organomegaly Ext: ROM intact. No gross muscle atrophy, no edema, no contractures. Left foot postsurgical dressing intact. Neuro: Speech clear, face symmetrical and CN II-XII grossly intact with no noted focal neuro deficits. Psych: Alert and oriented to person, place, time, and situation. Appropriate and pleasant affect. Assessment and Plan of Care: Cellulitis of the left foot with an infected puncture wound to the plantar asp ect of the third toe, currently status post debridement, I&D and third toe amputation by Dr. Hammonds on 02/06/21 -IV antibiotics changed to daptomycin -Infectious disease following -Vascular surgery following -Symptomatic care and pain management -Wound care -Wound culture positive for staph aureus Acute kidney injury, worsening -Worsening renal function with BUN 81.0, creatinine 3.0, and GFR of 16.3. -Renal and bladder ultrasound negative for abnormalities. -Urinalysis negative for infection. -Urine eosinophils negative -Nephrology following recommending initiation of prednisone 30 mg twice daily for treatment of interstitial nephritis. -Avoid nephrotoxic medications. Elevated d-dimer accompanied by chest pain and shortness of breath, PE and DVT ruled out LLL Pneumonia -COVID PCR negative -CXR revealing LLL pneumonia. -Additional antibiotics added at this time: Zosyn -D-dimer is 6.04. -Heparin infusion initiated and VQ scan completed. VQ scan was negative, heparin infusion discontinued. -Bilateral lower extremity Dopplers completed negative for DVTs. Severe sepsis without septic shock -Treated with aggressive IV fluid hydration and antibiotics. -Lactic acid was normal. -Blood culture negative, showing no growth after 144 hours. -Wound cultures positive for staph aureus -Infectious disease following Severe frontal headache, now resolved. -Computed tomography scan in the ER showed no acute findings negative for acute intercranial process. Type 2 diabetes insulin-dependent diabetes mellitus -Hold Glucophage and placed on glycemic protocol with sliding scale along with Levemir 10 units daily. -technical healthcare consultant to complete med rec and determine dose -Hemoglobin A1c 8.1%. -Heart healthy and carb consistent diet. CODE STATUS: Full code DVT prophylaxis: SCDs Discussed with: Patient and RN Anticipated discharge date: Clinical course to determine Anticipated discharge place: Home A total of 45 minutes was spent on the care of this complex patient more than 50% of the time was spent in counseling and care coordination. Objective - Vital Signs Vital signs: Vital Signs Temp 100.5 F H 02/12/21 05:00 Pulse 82 02/12/21 08:00 Resp 20 02/12/21 08:00 BP 135/67 02/12/21 05:00 Pulse Ox 92 L 02/12/21 05:00 Intake & Output 02/11/21 02/12/21 02/12/21 18:59 06:59 18:59 Intake Total 2323.493 590 240 Output Total 0 Balance 2323.493 590 240 Intake: Intake, IV Titration 1603.493 Amount Calcium Gluconate 1 gm In 100 Sodium Chloride 0.9% 100 ml @ 400 mls/hr IVPB ONCE ONE Rx#:[id number] DAPTOmycin 500 mg In 50 Sodium Chloride 0.9% 50 ml @ 100 mls/hr IVPB Q48H [facility] Rx#:[id number] Heparin Sod,Pork in 0.45% 153.493 NaCl 25,000 unit In 0.45 % NaCl 1 250ml.bag @ 18 UNITS/KG/HR 14.696 mls/hr IV .Q17H1M [facility] Rx#: [id number] Sodium Chloride 0.9% 1, 1300 000 ml @ 130 mls/hr IV . Q7H42M [facility] Rx#:[id number] Oral 720 590 240 Output: Post Void Residual 0 Other: Voiding Method Toilet Toilet Toilet Bedside Commode Bedside Commode Bedside Commode # Voids 4 3 3 - Labs CBC & Chem 7: 02/12/21 06:10 02/12/21 06:10 Labs: Abnormal Lab Results - Last 24 Hours (Table) 02/11/21 02/11/21 02/11/21 Range/Units 11:34 11:34 11:34 WBC 11.1 H (3.8-10.6) k/uL RBC (3.80-5.40) m/uL Hgb (11.4-16.0) gm/dL Hct (34.0-46.0) % Neutrophils # 9.6 H (1.3-7.7) k/uL ESR 84 H (0-20) mm/hr APTT 50.7 H (22.0-30.0) sec Sodium 130 L (137-145) mmol/L Potassium 5.9 H (3.5-5.1) mmol/L Carbon Dioxide 14 L (22-30) mmol/L BUN 69 H (7-17) mg/dL Creatinine 2.66 H (0.52-1.04) mg/dL Est GFR (CKD-EPI)AfAm (60.0-200.0) Est GFR (CKD-EPI)NonAf (60.0-200.0) BUN/Creatinine Ratio (12.00-20.00) Ratio Glucose 194 H (74-99) mg/dL POC Glucose (mg/dL) (75-99) mg/dL Calcium 8.3 L (8.4-10.2) mg/dL Total Bilirubin 0.1 L (0.2-1.3) mg/dL Alkaline Phosphatase 127 H (38-126) U/L Lactate Dehydrogenase 882 H (313-618) U/L C-Reactive Protein 5.5 H (<1.0) mg/dL Albumin 3.0 L (3.5-5.0) g/dL 02/11/21 02/11/21 02/11/21 Range/Units 11:52 17:21 20:26 WBC (3.8-10.6) k/uL RBC (3.80-5.40) m/uL Hgb (11.4-16.0) gm/dL Hct (34.0-46.0) % Neutrophils # (1.3-7.7) k/uL ESR (0-20) mm/hr APTT (22.0-30.0) sec Sodium (137-145) mmol/L Potassium (3.5-5.1) mmol/L Carbon Dioxide (22-30) mmol/L BUN (7-17) mg/dL Creatinine (0.52-1.04) mg/dL Est GFR (CKD-EPI)AfAm (60.0-200.0) Est GFR (CKD-EPI)NonAf (60.0-200.0) BUN/Creatinine Ratio (12.00-20.00) Ratio Glucose (74-99) mg/dL POC Glucose (mg/dL) 211 H 249 H 266 H (75-99) mg/dL Calcium (8.4-10.2) mg/dL Total Bilirubin (0.2-1.3) mg/dL Alkaline Phosphatase (38-126) U/L Lactate Dehydrogenase (313-618) U/L C-Reactive Protein (<1.0) mg/dL Albumin (3.5-5.0) g/dL 02/12/21 02/12/21 02/12/21 Range/Units 06:10 06:10 07:26 WBC 16.0 H (3.8-10.6) k/uL RBC 3.75 L (3.80-5.40) m/uL Hgb 10.2 L (11.4-16.0) gm/dL Hct 30.0 L (34.0-46.0) % Neutrophils # (1.3-7.7) k/uL ESR (0-20) mm/hr APTT (22.0-30.0) sec Sodium 132 L (137-145) mmol/L Potassium (3.5-5.1) mmol/L Carbon Dioxide 17.8 L (22-30) mmol/L BUN 81.0 H (7-17) mg/dL Creatinine 3.0 H (0.52-1.04) mg/dL Est GFR (CKD-EPI)AfAm 18.9 L (60.0-200.0) Est GFR (CKD-EPI)NonAf 16.3 L (60.0-200.0) BUN/Creatinine Ratio 27.00 H (12.00-20.00) Ratio Glucose 152 H (74-99) mg/dL POC Glucose (mg/dL) 143 H (75-99) mg/dL Calcium 8.1 L (8.4-10.2) mg/dL Total Bilirubin (0.2-1.3) mg/dL Alkaline Phosphatase (38-126) U/L Lactate Dehydrogenase (313-618) U/L C-Reactive Protein (<1.0) mg/dL Albumin (3.5-5.0) g/dL Microbiology - Last 24 Hours (Table) 02/06/21 22:08 Anaerobic Culture - Final Toe - Left Third 02/06/21 15:00 Anaerobic Culture - Final Toe - Left Third <Miya Sargent - Last Filed: 02/12/21 16:42> Objective - Vital Signs Vital signs: Vital Signs Temp 98.3 F 02/12/21 15:20 Pulse 90 02/12/21 15:20 Resp 20 02/12/21 15:20 BP 136/64 02/12/21 15:20 Pulse Ox 94 L 02/12/21 15:20 Intake & Output 02/11/21 02/12/21 02/12/21 18:59 06:59 18:59 Intake Total 2323.493 590 240 Output Total 0 Balance 2323.493 590 240 Intake: Intake, IV Titration 1603.493 Amount Calcium Gluconate 1 gm In 100 Sodium Chloride 0.9% 100 ml @ 400 mls/hr IVPB ONCE ONE Rx#:[id number] DAPTOmycin 500 mg In 50 Sodium Chloride 0.9% 50 ml @ 100 mls/hr IVPB Q48H [facility] Rx#:[id number] Heparin Sod,Pork in 0.45% 153.493 NaCl 25,000 unit In 0.45 % NaCl 1 250ml.bag @ 18 UNITS/KG/HR 14.696 mls/hr IV .Q17H1M [facility] Rx#: [id number] Sodium Chloride 0.9% 1, 1300 000 ml @ 130 mls/hr IV . Q7H42M [facility] Rx#:[id number] Oral 720 590 240 Output: Post Void Residual 0 Other: Voiding Method Toilet Toilet Toilet Bedside Commode Bedside Commode Bedside Commode # Voids 4 3 3 - Labs CBC & Chem 7: 02/12/21 06:10 02/12/21 06:10 Labs: Abnormal Lab Results - Last 24 Hours (Table) 02/11/21 02/11/21 02/12/21 Range/Units 17:21 20:26 06:10 WBC 16.0 H (3.8-10.6) k/uL RBC 3.75 L (3.80-5.40) m/uL Hgb 10.2 L (11.4-16.0) gm/dL Hct 30.0 L (34.0-46.0) % Sodium (135-145) mmol/L Carbon Dioxide (21.6-31.8) mmol/L BUN (9.0-27.0) mg/dL Creatinine (0.6-1.5) mg/dL Est GFR (CKD-EPI)AfAm (60.0-200.0) Est GFR (CKD-EPI)NonAf (60.0-200.0) BUN/Creatinine Ratio (12.00-20.00) Ratio Glucose (70-110) mg/dL POC Glucose (mg/dL) 249 H 266 H (75-99) mg/dL Calcium (8.7-10.3) mg/dL 02/12/21 02/12/21 02/12/21 Range/Units 06:10 07:26 12:23 WBC (3.8-10.6) k/uL RBC (3.80-5.40) m/uL Hgb (11.4-16.0) gm/dL Hct (34.0-46.0) % Sodium 132 L (135-145) mmol/L Carbon Dioxide 17.8 L (21.6-31.8) mmol/L BUN 81.0 H (9.0-27.0) mg/dL Creatinine 3.0 H (0.6-1.5) mg/dL Est GFR (CKD-EPI)AfAm 18.9 L (60.0-200.0) Est GFR (CKD-EPI)NonAf 16.3 L (60.0-200.0) BUN/Creatinine Ratio 27.00 H (12.00-20.00) Ratio Glucose 152 H (70-110) mg/dL POC Glucose (mg/dL) 143 H 240 H (75-99) mg/dL Calcium 8.1 L (8.7-10.3) mg/dL Microbiology - Last 24 Hours (Table) 02/06/21 22:08 Anaerobic Culture - Final Toe - Left Third 02/06/21 15:00 Anaerobic Culture - Final Toe - Left Third Assessment and Plan Assessment: Patient seen and examined independently. Patient was also seen by Mark Alonzo NP and case was discussed. I am in agreement with subjective, physical exam, assessment and plan as written above and amended below. She complains of worsening shortness of breath. She has some chest heaviness. No nausea, vomiting, diarrhea. Still with poor oral intake. General: non toxic, no distress, appears at stated age Derm: Diffuse rash that is erythematous, flat, without purulent drainage with pinpoint lesions without convalescence mostly centered on the lower extremities including the trunk and torso. Dressing over left foot warm, dry Head: atraumatic, normocephalic, symmetric Eyes: EOMI, no lid lag, anicteric sclera Mouth: no lip lesion, mucus membranes moist Cardiovascular: S1S2 tachycardic, no murmur, positive posterior tibial pulse bilateral, Lungs: Decreased breath sounds bilateral, no rhonchi, no rales , no accessory muscle use Abdominal: soft, nontender to palpation, no guarding, no appreciable organomegaly Ext: no gross muscle atrophy, no edema, no contractures Neuro: CN II-XI grossly intact, no focal neuro deficits Psych: Alert, oriented, appropriate affect Patient with rash, THIEN, and pulmonic infiltrate. Concerns are for ALLERGIC component, vasculitis, sarcoidosis, and infectious etiologies. CT chest Consult pulmonary Check TB screen Blood cultures, legionella urine antigen, MRSA nasal swab.
[2021-02-12] MEDS: DOXYCYCLINE 100 MG in SODIUM CHLORIDE 0.9% 100 ML IVPB SCH ×2 (10:46→20:38)
--- NOTE | 2021-02-12 11:14 | P.PCN ---
Description of Procedure: 61-year-old female patient came with marked cellulitis and redness of the foot with the gangrene changes of the third toe patient went saenz amputation patient is a under care of infectious disease with IV antibiotic and we've been changing the dressing every other day with Aquacel silver. This morning patient is a short of breath and patient had a chest x-ray and also covert test was found to be negative we have changed the dressing with excellent silver base of the wound is granulating we will continue with excess silver thank you
[2021-02-12 12:26] LABS: Glucose,Whole Blood 240 mg/dL (75-99)
--- NOTE | 2021-02-12 14:18 | P.PN ---
Subjective Progress Note Date: 02/12/21 Principal diagnosis: 61-year-old female seen in consultation because of acute kidney injury. Creatinine was 0.7 on 02/07/2021 and Creatinine available on 02/09/2021 and went up to 2.1. This is injury from vancomycin level was 21.8 on 02/07/2021 and possibly acute incision nephritis is considered because of the petechial rash she has. This morning she has developed a temperature and a chest x-ray shows bilateral infiltrate that was seen before. She has a negative PCR for:covid as of this morning She feels somewhat short of breath. Very anxious. She is known with diabetes and has hearing deficit since . Creatinine continues to go up, blood pressure has been stable urine output is documented 3 50 mL. No nausea vomiting diarrhea. No chest pain. She does have mild cough and retrosternal discomfort on coughing. Objective - Vital Signs Vital signs: Vital Signs Temp 99.2 F 02/12/21 12:34 Pulse 94 02/12/21 12:34 Resp 20 02/12/21 13:42 BP 142/67 02/12/21 12:34 Pulse Ox 95 02/12/21 12:34 Intake & Output 02/11/21 02/12/21 02/12/21 18:59 06:59 18:59 Intake Total 2323.493 590 240 Output Total 0 Balance 2323.493 590 240 Intake: Intake, IV Titration 1603.493 Amount Calcium Gluconate 1 gm In 100 Sodium Chloride 0.9% 100 ml @ 400 mls/hr IVPB ONCE ONE Rx#:[id number] DAPTOmycin 500 mg In 50 Sodium Chloride 0.9% 50 ml @ 100 mls/hr IVPB Q48H [facility] Rx#:[id number] Heparin Sod,Pork in 0.45% 153.493 NaCl 25,000 unit In 0.45 % NaCl 1 250ml.bag @ 18 UNITS/KG/HR 14.696 mls/hr IV .Q17H1M [facility] Rx#: [id number] Sodium Chloride 0.9% 1, 1300 000 ml @ 130 mls/hr IV . Q7H42M [facility] Rx#:[id number] Oral 720 590 240 Output: Post Void Residual 0 Other: Voiding Method Toilet Toilet Toilet Bedside Commode Bedside Commode Bedside Commode # Voids 4 3 3 On examination she is awake alert oriented but somewhat short of breath and anxious HEENT exam no JVP neck is supple no facial asymmetry Lungs are clear to auscultation with some diminished air entry on the left base. Chest clear shows some atelectasis there. There is some occasional coarse crackles at both bases. Heart sounds unremarkable for any murmur rub gallop Abdomen soft nontender Extremity exam was no edema Neurologically awake alert oriented. - Labs CBC & Chem 7: 02/12/21 06:10 02/12/21 06:10 Labs: Abnormal Lab Results - Last 24 Hours (Table) 02/11/21 02/11/21 02/11/21 Range/Units 11:34 11:34 17:21 WBC (3.8-10.6) k/uL RBC (3.80-5.40) m/uL Hgb (11.4-16.0) gm/dL Hct (34.0-46.0) % ESR 84 H (0-20) mm/hr Sodium 130 L (137-145) mmol/L Potassium 5.9 H (3.5-5.1) mmol/L Carbon Dioxide 14 L (22-30) mmol/L BUN 69 H (7-17) mg/dL Creatinine 2.66 H (0.52-1.04) mg/dL Est GFR (CKD-EPI)AfAm (60.0-200.0) Est GFR (CKD-EPI)NonAf (60.0-200.0) BUN/Creatinine Ratio (12.00-20.00) Ratio Glucose 194 H (74-99) mg/dL POC Glucose (mg/dL) 249 H (75-99) mg/dL Calcium 8.3 L (8.4-10.2) mg/dL Total Bilirubin 0.1 L (0.2-1.3) mg/dL Alkaline Phosphatase 127 H (38-126) U/L Lactate Dehydrogenase 882 H (313-618) U/L C-Reactive Protein 5.5 H (<1.0) mg/dL Albumin 3.0 L (3.5-5.0) g/dL 02/11/21 02/12/21 02/12/21 Range/Units 20:26 06:10 06:10 WBC 16.0 H (3.8-10.6) k/uL RBC 3.75 L (3.80-5.40) m/uL Hgb 10.2 L (11.4-16.0) gm/dL Hct 30.0 L (34.0-46.0) % ESR (0-20) mm/hr Sodium 132 L (137-145) mmol/L Potassium (3.5-5.1) mmol/L Carbon Dioxide 17.8 L (22-30) mmol/L BUN 81.0 H (7-17) mg/dL Creatinine 3.0 H (0.52-1.04) mg/dL Est GFR (CKD-EPI)AfAm 18.9 L (60.0-200.0) Est GFR (CKD-EPI)NonAf 16.3 L (60.0-200.0) BUN/Creatinine Ratio 27.00 H (12.00-20.00) Ratio Glucose 152 H (74-99) mg/dL POC Glucose (mg/dL) 266 H (75-99) mg/dL Calcium 8.1 L (8.4-10.2) mg/dL Total Bilirubin (0.2-1.3) mg/dL Alkaline Phosphatase (38-126) U/L Lactate Dehydrogenase (313-618) U/L C-Reactive Protein (<1.0) mg/dL Albumin (3.5-5.0) g/dL 02/12/21 02/12/21 Range/Units 07:26 12:23 WBC (3.8-10.6) k/uL RBC (3.80-5.40) m/uL Hgb (11.4-16.0) gm/dL Hct (34.0-46.0) % ESR (0-20) mm/hr Sodium (137-145) mmol/L Potassium (3.5-5.1) mmol/L Carbon Dioxide (22-30) mmol/L BUN (7-17) mg/dL Creatinine (0.52-1.04) mg/dL Est GFR (CKD-EPI)AfAm (60.0-200.0) Est GFR (CKD-EPI)NonAf (60.0-200.0) BUN/Creatinine Ratio (12.00-20.00) Ratio Glucose (74-99) mg/dL POC Glucose (mg/dL) 143 H 240 H (75-99) mg/dL Calcium (8.4-10.2) mg/dL Total Bilirubin (0.2-1.3) mg/dL Alkaline Phosphatase (38-126) U/L Lactate Dehydrogenase (313-618) U/L C-Reactive Protein (<1.0) mg/dL Albumin (3.5-5.0) g/dL Microbiology - Last 24 Hours (Table) 02/06/21 22:08 Anaerobic Culture - Final Toe - Left Third 02/06/21 15:00 Anaerobic Culture - Final Toe - Left Third Assessment and Plan Assessment: Impression 1. Acute kidney injury with creatinine going up from 0.7, on 02/07/2021 2-2.1 in 2 days' time on 02/09/2021, with the vancomycin level being 21.3 on 02/07/2021 unit. Other diagnoses include possibility of acute interstitial nephritis is considered, urine eosinophil is 0. Urinalysis is not very suggestive though, usually you see RBCs and WBCs. She has 5 RBCs and 2 WBCs and which could be from diabetic nephropathy. Urine protein to creatinine ratio is 2.5 g. Creatinine continues to go up to 3 from 2.6 and 2.1 2. Diabetes mellitus with left foot cellulitis. With associated diabetic nephropathy with 2+ proteinuria. Urine protein to creatinine is 2.5 g. 3. Deafness and peripheral neuropathy neuropathy but no hematuria or family history to suggest [place] syndrome. The acute kidney injury is not explained by this diagnosis and is unrelated. 4. Hyponatremia secondary acute kidney injury. 5. Mild degree of non-gap acidosis from acute kidney injury. Recommendation 1. Start prednisone 30 twice a day for possibility of acute interstitial nephritis. 2. Check CBC with differential count on today's specimen 3. Monitor labs urine output.
[2021-02-12] MEDS: BENZOCAINE/MENTHOL LOZENG 1 EACH LOZENGE MUCOUS MEM PRN (15:51)
[2021-02-12 17:08] LABS: Glucose,Whole Blood 180 mg/dL (75-99)
[2021-02-12] MEDS: BENZONATATE 100 MG CAP PO PRN (17:57)
[2021-02-12] MEDS ORDERED: methylPREDNISolone SOD SUCCI 125 MG/2 ML VIAL IV STA (17:59)
[2021-02-12] MEDS: ALBUTEROL NEBULIZED 2.5 MG/3 ML INHALATION PRN (18:13)
[2021-02-12 18:36] LABS: ABG Base Excess -6.7 mmol/L; ABG HCO3 18 mmol/L (21-25); ABG Oxygen Saturation 97.9 % (94-97); ABG PCO2 33 mmHg (35-45); ABG PH 7.35 (7.35-7.45); ABG PO2 106 mmHg (83-108); Allen Test Performed? Yes
[2021-02-12 19:04] LABS: African American GFR (CKD) 17 (>60 ml/min/1.73 sqM); Anion Gap 8 mmol/L; Blood Urea Nitrogen 79 mg/dL (7-17); Calcium 7.8 mg/dL (8.4-10.2); Carbon Dioxide 17 mmol/L (22-30); Chloride 106 mmol/L (98-107); Glucose 175 mg/dL (74-99); Non-African American GFR(CKD) 15 (>60 ml/min/1.73 sqM); Potassium 5.2 mmol/L (3.5-5.1); Sodium 131 mmol/L (137-145)
--- NOTE | 2021-02-12 19:28 | CT ---
EXAMINATION TYPE: CT chest wo con DATE OF EXAM: 02/12/2021 COMPARISON: None HISTORY: Pneumonia vs sarcoid CT DLP: 521.4 mGycm Automated exposure control for dose reduction was used. Images obtained from the thoracic inlet to the diaphragm without contrast. There are moderate bilateral pleural effusions. There is airspace consolidation and atelectasis in zabrina th lower lobes. There is patchy airspace infiltrate also in both upper lobes. Heart size is fairly no rmal. There is no pericardial effusion. There are a few paratracheal lymph nodes measuring up to 1.5 cm. There are no hilar masses. Bony thorax is intact. IMPRESSION: Pleural effusions with bilateral extensive pneumonia. There is also some atelectasis in the lower lob es. There are a few paratracheal lymph nodes. I do not see significant adenopathy to suggest sarcoido sis. Findings could relate to congestive heart failure or RDS.
[2021-02-12 20:39] LABS: Glucose,Whole Blood 225 mg/dL (75-99)
[2021-02-12] MEDS: predniSONE 10 MG TAB PO SCH (20:49)
[2021-02-12] MEDS: PIPERACILLIN-TAZOBACTAM 3.375 GM in SODIUM CHLORIDE 0.9% 100 ML IVPB SCH (21:55)
--- NOTE | 2021-02-13 00:02 | PN ---
PROGRESS NOTE DATE OF SERVICE: 02/12/2021 REASON FOR FOLLOWUP: Left foot abscess and cellulitis, MSSA. INTERVAL HISTORY: The patient is afebrile. The patient did have worsening of respiratory distress, currently on a non-rebreather. The patient denies having any chest pain. She did have a cough but not bringing up any sputum. No nausea, vomiting. No abdominal pain or diarrhea and no pain to the left foot. PHYSICAL EXAMINATION: Blood pressure 150/75 with a pulse of 92, temperature 98.6. She is 96% General description is a middle-aged female up in the bed in no distress. Respiratory system: Unlabored breathing. Coarse breath sounds bilaterally, no wheeze. Heart S1, S2. Regular rate and rhythm. Abdomen soft. Extremities: No edema of the feet. LABS: Hemoglobin is 10.3, white count 16,000. BUN of 79, creatinine is 3.28. DIAGNOSTIC IMPRESSION AND PLAN: Patient with left foot abscess and cellulitis secondary to MSSA, status post drainage of the abscess, amputation of the third toe in this patient who did have worsening of her kidney function, now with worsening respiratory status, possible fluid overload. Clinically not behaving as pneumonia. The patient is being followed by Nephrology service. Pulmonary service has been consulted: Prognosis guarded. at the bedside, questions were answered. MMODL / IJN: [id number] / [id number]
[2021-02-13 06:46] LABS: HCT 30.8 % (34.0-46.0); HGB 9.9 gm/dL (11.4-16.0); MCH 26.8 pg (25.0-35.0); MCHC 32.1 g/dL (31.0-37.0); MCV 83.5 fL (80.0-100.0); Mean Platelet Volume 6.9; Platelet Count 411 k/uL (150-450); RBC 3.68 m/uL (3.80-5.40); RDW 14.4 % (11.5-15.5); WBC 10.5 k/uL (3.8-10.6)
[2021-02-13 07:10] LABS: ALT 12 U/L (4-34); AST 24 U/L (14-36); African American GFR (CKD) 17 (>60 ml/min/1.73 sqM); Albumin 2.6 g/dL (3.5-5.0); Albumin/Globulin Ratio 0.7; Alkaline Phosphatase 96 U/L (38-126); Anion Gap 11 mmol/L; Blood Urea Nitrogen 88 mg/dL (7-17); Calcium 7.9 mg/dL (8.4-10.2); Carbon Dioxide 16 mmol/L (22-30); Chloride 107 mmol/L (98-107); Creatine Kinase 27 U/L (30-135); Globulin 3.5 g/dL; Glucose 281 mg/dL (74-99); Magnesium 2.2 mg/dL (1.6-2.3); Non-African American GFR(CKD) 15 (>60 ml/min/1.73 sqM); Phosphorus 7.2 mg/dL (2.5-4.5); Potassium 5.4 mmol/L (3.5-5.1); Sodium 134 mmol/L (137-145); Total Bilirubin 0.2 mg/dL (0.2-1.3); Total Protein 6.1 g/dL (6.3-8.2)
[2021-02-13 07:13] LABS: Glucose,Whole Blood 263 mg/dL (75-99)
[2021-02-13] MEDS ORDERED: CALCIUM GLUCONATE 1 GM in SODIUM CHLORIDE 0.9% 100 ML IVPB ONE (07:37)
[2021-02-13] MEDS ORDERED: SODIUM BICARB 8.4% 50 ML SYR (1 MEQ/ML) IV ONE (07:46)
[2021-02-13] MEDS: INSULIN DETEMIR (LEVEMIR) 100 UNIT/ML SYR SQ SCH ×2 (08:36→22:00)
[2021-02-13] MEDS: INSULIN ASPART (NovoLOG) 100 UNIT/ML VIAL SQ SCH ×5 (08:36→22:00)
[2021-02-13] MEDS: PIPERACILLIN-TAZOBACTAM 3.375 GM in SODIUM CHLORIDE 0.9% 100 ML IVPB SCH ×2 (08:36→23:34)
[2021-02-13] MEDS: FOLIC ACID 1 MG TAB PO SCH (08:38)
[2021-02-13] MEDS: SODIUM BICARBONATE TAB 650 MG TAB PO SCH ×4 (08:38→22:00)
[2021-02-13] MEDS: FAMOTIDINE 20 MG TAB PO SCH (08:38)
[2021-02-13] MEDS: CYANOCOBALAMIN 500 MCG TAB PO SCH (08:38)
[2021-02-13] MEDS: PREGABALIN 75 MG CAP PO SCH ×2 (08:38→22:00)
[2021-02-13] MEDS: predniSONE 10 MG TAB PO SCH ×2 (08:38→22:00)
[2021-02-13] MEDS: DEXTROSE 5% IN WATER 1,000 ML with SODIUM BICARB (1 MEQ/ML) 150 ML IV SCH ×2 (08:57→23:34)
--- NOTE | 2021-02-13 09:24 | P.PN ---
Subjective Progress Note Date: 02/13/21 Principal diagnosis: 61-year-old female seen in consultation because of acute kidney injury. Creatinine was 0.7 on 02/07/2021 and the next Creatinine available on 02/09/2021 and went up to 2.1. the acute kidney injury was deemed to be from vancomycin based on vancomycin level was 21.8 on 02/07/2021. She had a petechial rash on her lower extremitiesand of the rash acute incision nephritis is considered. she was started on prednisone 30 mg twice a day yesterday on 02/12/2021. on 02/12/2021 yesterday developed a temperature and was fairly short of breath,and a chest x-ray shows bilateral infiltrate that was seen before. She has a negative PCR for covid as of this morning. She became fairly short of breath and needed high flow oxygen. Computed tomography scan of the chest reveals bilateral pneumonitis. this morning she is better still requiring high flow oxygen. Otherwise she denies any other symptoms suggestive of vasculitis. Creatinine is stable now. She says her cough only started 2 or 3 days ago. Objective - Vital Signs Vital signs: Vital Signs Temp 97.8 F 02/13/21 08:33 Pulse 74 02/13/21 08:33 Resp 18 02/13/21 08:33 BP 156/83 02/13/21 08:33 Pulse Ox 95 02/13/21 07:33 Intake & Output 02/12/21 02/13/21 02/13/21 18:59 06:59 18:59 Intake Total 540 380 Balance 540 380 Intake: Intake, IV Titration 300 Amount Sodium Chloride 0.9% 1, 300 000 ml @ 50 mls/hr IV . [facility] Rx#:[id number] Oral 240 380 Other: Voiding Method Toilet Toilet Bedside Commode Bedside Commode # Voids 1 1 1 # Bowel Movements 1 on examination awake alert oriented. She is on high flow oxygen. HEENT exam no JVP neck is supple no facial asymmetry Lungs are significant for bilateral coarse crackle with some end expiratory wheezing fairly good air entry bilaterally Heart sounds unremarkable for any murmur rub gallop Abdomen soft nontender Extremity exam was mild edema more on the left. Neurologically awake alert oriented. - Labs CBC & Chem 7: 02/13/21 06:18 02/13/21 06:18 Labs: Abnormal Lab Results - Last 24 Hours (Table) 02/12/21 02/12/21 02/12/21 Range/Units 06:10 06:10 12:23 RBC (3.80-5.40) m/uL Hgb (11.4-16.0) gm/dL Hct (34.0-46.0) % ABG pCO2 (35-45) mmHg ABG HCO3 (21-25) mmol/L ABG O2 Saturation (94-97) % Sodium 132 L (135-145) mmol/L Potassium (3.5-5.1) mmol/L Carbon Dioxide 17.8 L (21.6-31.8) mmol/L BUN 81.0 H (9.0-27.0) mg/dL Creatinine 3.0 H (0.6-1.5) mg/dL Est GFR (CKD-EPI)AfAm 18.9 L (60.0-200.0) Est GFR (CKD-EPI)NonAf 16.3 L (60.0-200.0) BUN/Creatinine Ratio 27.00 H (12.00-20.00) Ratio Glucose 152 H (70-110) mg/dL POC Glucose (mg/dL) 240 H (75-99) mg/dL Calcium 8.1 L (8.7-10.3) mg/dL Phosphorus (2.5-4.5) mg/dL Creatine Kinase (30-135) U/L Total Protein (6.3-8.2) g/dL Albumin (3.5-5.0) g/dL Procalcitonin 0.36 H (0.02-0.09) ng/mL 02/12/21 02/12/21 02/12/21 Range/Units 17:06 18:23 18:42 RBC (3.80-5.40) m/uL Hgb (11.4-16.0) gm/dL Hct (34.0-46.0) % ABG pCO2 33 L (35-45) mmHg ABG HCO3 18 L (21-25) mmol/L ABG O2 Saturation 97.9 H (94-97) % Sodium 131 L (135-145) mmol/L Potassium 5.2 H (3.5-5.1) mmol/L Carbon Dioxide 17 L (21.6-31.8) mmol/L BUN 79 H (9.0-27.0) mg/dL Creatinine 3.28 H (0.6-1.5) mg/dL Est GFR (CKD-EPI)AfAm (60.0-200.0) Est GFR (CKD-EPI)NonAf (60.0-200.0) BUN/Creatinine Ratio (12.00-20.00) Ratio Glucose 175 H (70-110) mg/dL POC Glucose (mg/dL) 180 H (75-99) mg/dL Calcium 7.8 L (8.7-10.3) mg/dL Phosphorus (2.5-4.5) mg/dL Creatine Kinase (30-135) U/L Total Protein (6.3-8.2) g/dL Albumin (3.5-5.0) g/dL Procalcitonin (0.02-0.09) ng/mL 02/12/21 02/13/21 02/13/21 Range/Units 20:37 06:18 06:18 RBC 3.68 L (3.80-5.40) m/uL Hgb 9.9 L (11.4-16.0) gm/dL Hct 30.8 L (34.0-46.0) % ABG pCO2 (35-45) mmHg ABG HCO3 (21-25) mmol/L ABG O2 Saturation (94-97) % Sodium 134 L (135-145) mmol/L Potassium 5.4 H (3.5-5.1) mmol/L Carbon Dioxide 16 L (21.6-31.8) mmol/L BUN 88 H (9.0-27.0) mg/dL Creatinine 3.31 H (0.6-1.5) mg/dL Est GFR (CKD-EPI)AfAm (60.0-200.0) Est GFR (CKD-EPI)NonAf (60.0-200.0) BUN/Creatinine Ratio (12.00-20.00) Ratio Glucose 281 H (70-110) mg/dL POC Glucose (mg/dL) 225 H (75-99) mg/dL Calcium 7.9 L (8.7-10.3) mg/dL Phosphorus 7.2 H (2.5-4.5) mg/dL Creatine Kinase 27 L (30-135) U/L Total Protein 6.1 L (6.3-8.2) g/dL Albumin 2.6 L (3.5-5.0) g/dL Procalcitonin (0.02-0.09) ng/mL 02/13/21 Range/Units 07:12 RBC (3.80-5.40) m/uL Hgb (11.4-16.0) gm/dL Hct (34.0-46.0) % ABG pCO2 (35-45) mmHg ABG HCO3 (21-25) mmol/L ABG O2 Saturation (94-97) % Sodium (135-145) mmol/L Potassium (3.5-5.1) mmol/L Carbon Dioxide (21.6-31.8) mmol/L BUN (9.0-27.0) mg/dL Creatinine (0.6-1.5) mg/dL Est GFR (CKD-EPI)AfAm (60.0-200.0) Est GFR (CKD-EPI)NonAf (60.0-200.0) BUN/Creatinine Ratio (12.00-20.00) Ratio Glucose (70-110) mg/dL POC Glucose (mg/dL) 263 H (75-99) mg/dL Calcium (8.7-10.3) mg/dL Phosphorus (2.5-4.5) mg/dL Creatine Kinase (30-135) U/L Total Protein (6.3-8.2) g/dL Albumin (3.5-5.0) g/dL Procalcitonin (0.02-0.09) ng/mL Microbiology - Last 24 Hours (Table) 02/12/21 12:28 Nasal Screen MRSA/MSSA - Preliminary Nasal Swab Assessment and Plan Assessment: Impression 1. Acute kidney injury with creatinine going up from 0.7, on 02/07/2021 2-2.1 in 2 days' time on 02/09/2021, with the vancomycin level being 21.3 on 02/07/2021 unit. Other diagnoses include possibility of acute interstitial nephritis is considered, urine eosinophil is 0. Urinalysis is not very sugges tive though, usually you see RBCs and WBCs. She has 5 RBCs and 2 WBCs and which could be from diabetic nephropathy. Urine protein to creatinine ratio is 2.5 g. Creatinine continues to go up to 3.31 from 2.6 and 2.1. Because of bilateral pneumonitis possibility of pulmonary renal syndrome is considered strongly. pending serology ordered last night, currently on prednisone 30 g twice a day as well as IV dose because of the acute shortness of breath that she developed yesterday. 2. Diabetes mellitus with left foot cellulitis. With associated diabetic nephropathy with 2+ proteinuria. Urine protein to creatinine is 2.5 g. 3. Deafness and peripheral neuropathy neuropathy but no hematuria or family history to suggest [place] syndrome. The acute kidney injury is not explained by this diagnosis and is unrelated. 4. Hyponatremia secondary acute kidney injury.sodium improved to 134 5. Mild degree of non-gap acidosis from acute kidney injury.bicarb is 16, on sodium bicarb 650 4 times a day. 6. Mild hyperkalemia secondary to high blood sugars when she was 23 and potassium is 5.4 Recommendation 1. continue prednisone 30 twice a day for possibility of acute interstitial nephritis. 2. pending serology for vasculitis including ANCA. Anti-GBM antibodies 3. Monitor labs urine output. 4. Possible kidney biopsy in the next 24-48 hours unless creatinine improves and out of the ANCA results are available 5. Discussed with the primary team and the patient and her were in the room
[2021-02-13 09:32] LABS: Erythrocyte Sedimentation Rate 99 mm/hr (0-20)
[2021-02-13] MEDS: DOXYCYCLINE 100 MG in SODIUM CHLORIDE 0.9% 100 ML IVPB SCH ×2 (10:20→22:23)
[2021-02-13] MEDS: HYDROCORTISONE 1% CREAM 454 GM JAR TOPICAL SCH ×3 (10:20→22:01)
--- NOTE | 2021-02-13 10:33 | P.PN ---
<Mark Alonzo - Last Filed: 02/13/21 11:21> Subjective Progress Note Date: 02/13/21 Hospital course: Patient is a 61-year-old female with a past medical history of insulin-dependent diabetes mellitus. She presented to the hospital on 01/31/21 with a chief complaint of left foot infection. She was found to have significant leukocytosis with WBC count of 25.2. X-ray left foot revealing mild soft tissue swelling calcaneal spurring no acute bony abnormality with no signs of os teomyelitis. CT left foot revealing prominent generalized soft tissue swelling with no discrete abscess identified. She underwent debridement, I and D and third toe amputation by Dr. Hammonds on 02/06/21. She was receiving IV antibiotic vancomycin, her wound cultures came back positive for Staphylococcus aureus and antibiotic changed to cefazolin. On 02/09/21 patient was discovered to have petechiae rash covering lower extremities and trunk along with lab findings indicative of acute kidney injury with BUN of 50.0, creatinine of 2.1, and GFR of 25.1 which was significantly elevated from baseline creatinine of 0.7. Patient received IV hydration with no improvement and on 02/10/21 renal functio baylee worsening with IV hydration with BUN of 62, creatinine 2.60, and GFR of 19. Nephrology was consulted and renal ultrasound was completed showing no suspicious acute changes reported with right kidney described as appearing enlarged and collecting systems slightly dilated and left kidney also enlarged with isoechoic area 2.2 x 2.8 x 2.3 cm. On the evening of 02/10/21 received called to bedside with patient's reports of sudden onset shortness of breath and chest pain. With THIEN, petechiae rash, chest pain, and new onset shortness of breath, this was concerning for ALLERGIC interstitial nephritis, cephalexin was discontinued and patient given Solu-Medrol 125 mg IVP, Benadryl 50 mg IVP, and Pepcid 20 mg IVP at this time. Cardiac workup then completed which was negative for acute abnormalities. ABG revealed compensated metabolic acidosis with pH of 7.410, pCO2 of 30.9, and PaO2 of 62.2 with a bicarb of 19.6. D-dimer elevated at 6.02. Patient placed on heparin infusion, with V/Q scan and Dopplers to be completed. Bilateral lower extremity Dopplers were negative for DVT and VQ scan showing low probability lung VQ scan. Heparin infusion was discontinued. Patient's condition improved by morning, patient states chest pain and shortness of breath subsided. However she continued to have worsening renal function with BUN of 69, creatinine 2.66, and GFR of 19. Nephrology evaluated patient and at this time they decided to hold off on administering further steroids. Infectious disease evaluated and started patient on daptomycin since discontinuation of cefazolin and current renal function. On 02/12/21 patient was found to be in significant respiratory distress with complaints of generalized body aches and pains, chills, and had elevated temp of 100.5F. Patient was swabbed for Covid 19 virus which was negative. Consult placed to pulmonology. A repeat chest x-ray was completed showing left effusion with adjacent atelectasis/pneumonia and at this time Zosyn and doxycycline were added to patient's current antibiotic regimen with daptomycin. Throughout the day patient's condition continued to worsen and she went from 2 L O2 via nasal cannula 2 requiring 15 L O2 via nonrebreather. STAT CT chest was completed showing pleural effusions with bilateral extensive pneumonia with atelectasis and lower lobes and paratracheal lymph nodes, findings possibly related to CHF or ARDS. Patient given 125 mg Solu-Medrol IVP and additional labs placed including ANAC and anti-GBM antibodies. Nephrology place patient on prednisone 30 mg twice daily and sodium bicarb tablets 650 mg 4 times daily. Renal function continuing to decline with BUN 88, creatinine of 3.31, and GFR 15. Nephrology considering possible biopsy in the next 24-48 hours if no improvement in creatinine and pending results of ANCA. Physical exam: 02/13/21: Patient was seen and fully evaluated at bedside this morning. Patient was sitting up in chair this morning and remains on high flow nasal cannula/airvo with FiO2 of 60% maintaining oxygen saturations at 95%. Patient reports feeling much better than she felt the night before. States shortness of breath and chest pain have resolved. Patient smiling and states that she is feeling "much better".. Renal function revealing BUN of 88, creatinine 3.31, and GFR of 15. Patient with hyperkalemia with potassium of 5.4, hypocalcemia with corrected calcium of 8.3, and low bicarb of 16. Patient given calcium gluconate 1 g and 1 amp of sodium bicarb. Patient's vital signs stable. She denies having any headache, lightheadedness, dizziness, just in vision or heari ng, chest pain or palpitations, nausea or vomiting, or experiencing any numbness/tingling/weakness in her extremities. Petechiae rash to lower extremities, abdomen, chest, and back improving. Nephrology, pulmonology, vascular surgery, and infectious disease following. Vital signs reviewed and stable. General: Nontoxic, no distress and appears stated age. Derm: Skin warm and dry, normal coloration for ethnicity. Petechiae rash to legs, abdomen, chest, and back. Head: Atraumatic, normocephalic and symmetric. Eyes: EOMs intact, no lid lag, and anicteric sclera. Mouth: no lip lesions, mucus membranes moist. Cardiovascular: regular rate and rhythm with normal S1S2, no murmur, positive posterior tibial pulses bilaterally, and cap refill < 2 seconds. Lungs: Respirations even, regular, and unlabored on room air. Lungs CTA bilaterally, no rhonchi, no rales, no wheezing, and no accessory muscle usage. Abdominal: soft, nontender to palpation, no guarding, no appreciable organomegaly Ext: ROM intact. No gross muscle atrophy, no edema, no contractures. Left foot postsurgical dressing intact. Neuro: Speech clear, face symmetrical and CN II-XII grossly intact with no noted focal neuro deficits. Psych: Alert and oriented to person, place, time, and situation. Appropriate and pleasant affect. Assessment and Plan of Care: Acute kidney injury, worsening Hyperkalemia Hypocalcemia Compensated Metabolic acidosis -Worsening renal function with BUN of 88, creatinine 3.31, and GFR of 15. -Renal and bladder ultrasound negative for abnormalities. -Urinalysis negative for infection. -Urine eosinophils negative -Urine protein to creatinine ratio normal findings. Urine protein and urine creatinine normal findings. -Nephrology following with patient prednisone 30 mg twice daily for treatment of possible interstitial nephritis and sodium bicarb tablets 650 mg 4 times daily.. -ANAC and anti-GBM antibodies pending -Nephrology considering possible biopsy in the next 24-48 hours if no improvement in creatinine and pending results of ANCA. -Avoid nephrotoxic medications. -Hyperkalemia and hypocalcemia treated, we'll continue to monitor with repeat a.m. labs. -Bicarb infusion along for treatment of compensated metabolic acidosis with current bicarb of 16. Acute respiratory failure with hypoxia Extensive Bilateral Pneumonia Elevated d-dimer accompanied by chest pain and shortness of breath, PE and DVT ruled out -CT chest was completed showing pleural effusions with bilateral extensive pneumonia with atelectasis and lower lobes and paratracheal lymph nodes, findin gs possibly related to CHF or ARDS. -COVID PCR negative -CXR revealing LLL pneumonia. -Additional antibiotics added at this time: Zosyn and doxycycline -D-dimer is 6.04. -Heparin infusion initiated and VQ scan completed. VQ scan was negative, heparin infusion discontinued. -Bilateral lower extremity Dopplers completed negative for DVTs. -Pulmonology following, appreciate recommendations Severe sepsis without septic shock -Treated with aggressive IV fluid hydration and antibiotics. -Lactic acid was normal. -Blood culture negative, showing no growth after 144 hours. -Wound cultures positive for staph aureus -Infectious disease following -IV antibiotics: Daptomycin, doxycycline, and Zosyn at this time Cellulitis of the left foot with an infected puncture wound to the plantar aspect of the third toe, currently status post debridement, I&D and third toe amputation by Dr. Hammonds on 02/06/21 -IV antibiotics changed to daptomycin -Infectious disease following -Vascular surgery following -Symptomatic care and pain management -Wound care -Wound culture positive for staph aureus Severe frontal headache, now resolved. -Computed tomography scan in the ER showed no acute findings negative for acute intercranial process. Type 2 diabetes insulin-dependent diabetes mellitus -Hold Glucophage and placed on glycemic protocol with sliding scale along with Levemir 10 units daily. -glass installer technician to complete med rec and determine dose -Hemoglobin A1c 8.1%. -Heart healthy and carb consistent diet. CODE STATUS: Full code DVT prophylaxis: SCDs Discussed with: Patient, patient's and RN Anticipated discharge date: Clinical course to determine Anticipated discharge place: Home A total of 45 minutes was spent on the care of this complex patient more than 50% of the time was spent in counseling and care coordination. Objective - Vital Signs Vital signs: Vital Signs Temp 97.8 F 02/13/21 08:33 Pulse 74 02/13/21 08:33 Resp 18 02/13/21 08:33 BP 156/83 02/13/21 08:33 Pulse Ox 95 02/13/21 07:33 Intake & Output 02/12/21 02/13/21 02/13/21 18:59 06:59 18:59 Intake Total 540 380 Balance 540 380 Intake: Intake, IV Titration 300 Amount Sodium Chloride 0.9% 1, 300 000 ml @ 50 mls/hr IV . [facility] Rx#:[id number] Oral 240 380 Other: Voiding Method Toilet Toilet Bedside Commode Bedside Commode # Voids 1 1 1 # Bowel Movements 1 - Labs CBC & Chem 7: 02/13/21 06:18 02/13/21 06:18 Labs: Abnormal Lab Results - Last 24 Hours (Table) 02/12/21 02/12/21 02/12/21 Range/Units 06:10 12:23 17:06 RBC (3.80-5.40) m/uL Hgb (11.4-16.0) gm/dL Hct (34.0-46.0) % ESR (0-20) mm/hr ABG pCO2 (35-45) mmHg ABG HCO3 (21-25) mmol/L ABG O2 Saturation (94-97) % Sodium (137-145) mmol/L Potassium (3.5-5.1) mmol/L Carbon Dioxide (22-30) mmol/L BUN (7-17) mg/dL Creatinine (0.52-1.04) mg/dL Glucose (74-99) mg/dL POC Glucose (mg/dL) 240 H 180 H (75-99) mg/dL Calcium (8.4-10.2) mg/dL Phosphorus (2.5-4.5) mg/dL Creatine Kinase (30-135) U/L Total Protein (6.3-8.2) g/dL Albumin (3.5-5.0) g/dL Procalcitonin 0.36 H (0.02-0.09) ng/mL 02/12/21 02/12/21 02/12/21 Range/Units 18:23 18:42 20:37 RBC (3.80-5.40) m/uL Hgb (11.4-16.0) gm/dL Hct (34.0-46.0) % ESR (0-20) mm/hr ABG pCO2 33 L (35-45) mmHg ABG HCO3 18 L (21-25) mmol/L ABG O2 Saturation 97.9 H (94-97) % Sodium 131 L (137-145) mmol/L Potassium 5.2 H (3.5-5.1) mmol/L Carbon Dioxide 17 L (22-30) mmol/L BUN 79 H (7-17) mg/dL Creatinine 3.28 H (0.52-1.04) mg/dL Glucose 175 H (74-99) mg/dL POC Glucose (mg/dL) 225 H (75-99) mg/dL Calcium 7.8 L (8.4-10.2) mg/dL Phosphorus (2.5-4.5) mg/dL Creatine Kinase (30-135) U/L Total Protein (6.3-8.2) g/dL Albumin (3.5-5.0) g/dL Procalcitonin (0.02-0.09) ng/mL 02/13/21 02/13/21 02/13/21 Range/Units 06:18 06:18 07:12 RBC 3.68 L (3.80-5.40) m/uL Hgb 9.9 L (11.4-16.0) gm/dL Hct 30.8 L (34.0-46.0) % ESR 99 H (0-20) mm/hr ABG pCO2 (35-45) mmHg ABG HCO3 (21-25) mmol/L ABG O2 Saturation (94-97) % Sodium 134 L (137-145) mmol/L Potassium 5.4 H (3.5-5.1) mmol/L Carbon Dioxide 16 L (22-30) mmol/L BUN 88 H (7-17) mg/dL Creatinine 3.31 H (0.52-1.04) mg/dL Glucose 281 H (74-99) mg/dL POC Glucose (mg/dL) 263 H (75-99) mg/dL Calcium 7.9 L (8.4-10.2) mg/dL Phosphorus 7.2 H (2.5-4.5) mg/dL Creatine Kinase 27 L (30-135) U/L Total Protein 6.1 L (6.3-8.2) g/dL Albumin 2.6 L (3.5-5.0) g/dL Procalcitonin (0.02-0.09) ng/mL Microbiology - Last 24 Hours (Table) 02/12/21 12:28 Nasal Screen MRSA/MSSA - Preliminary Nasal Swab <RosettaMiya Koby - Last Filed: 02/13/21 14:08> Objective - Vital Signs Vital signs: Vital Signs Temp 97.8 F 02/13/21 13:00 Pulse 86 02/13/21 13:00 Resp 20 02/13/21 13:00 BP 155/76 02/13/21 13:00 Pulse Ox 98 02/13/21 13:00 Intake & Output 02/12/21 02/13/21 02/13/21 18:59 06:59 18:59 Intake Total 540 380 Balance 540 380 Intake: Intake, IV Titration 300 Amount Sodium Chloride 0.9% 1, 300 000 ml @ 50 mls/hr IV . [facility] Rx#:[id number] Oral 240 380 Other: Voiding Method Toilet Toilet Toilet Bedside Commode Bedside Commode # Voids 1 1 1 # Bowel Movements 1 - Labs CBC & Chem 7: 02/13/21 06:18 02/13/21 06:18 Labs: Abnormal Lab Results - Last 24 Hours (Table) 02/12/21 02/12/21 02/12/21 Range/Units 06:10 17:06 18:23 RBC (3.80-5.40) m/uL Hgb (11.4-16.0) gm/dL Hct (34.0-46.0) % ESR (0-20) mm/hr ABG pCO2 33 L (35-45) mmHg ABG HCO3 18 L (21-25) mmol/L ABG O2 Saturation 97.9 H (94-97) % Sodium (137-145) mmol/L Potassium (3.5-5.1) mmol/L Carbon Dioxide (22-30) mmol/L BUN (7-17) mg/dL Creatinine (0.52-1.04) mg/dL Glucose (74-99) mg/dL POC Glucose (mg/dL) 180 H (75-99) mg/dL Calcium (8.4-10.2) mg/dL Phosphorus (2.5-4.5) mg/dL Creatine Kinase (30-135) U/L Total Protein (6.3-8.2) g/dL Albumin (3.5-5.0) g/dL Procalcitonin 0.36 H (0.02-0.09) ng/mL 02/12/21 02/12/21 02/13/21 Range/Units 18:42 20:37 06:18 RBC 3.68 L (3.80-5.40) m/uL Hgb 9.9 L (11.4-16.0) gm/dL Hct 30.8 L (34.0-46.0) % ESR 99 H (0-20) mm/hr ABG pCO2 (35-45) mmHg ABG HCO3 (21-25) mmol/L ABG O2 Saturation (94-97) % Sodium 131 L (137-145) mmol/L Potassium 5.2 H (3.5-5.1) mmol/L Carbon Dioxide 17 L (22-30) mmol/L BUN 79 H (7-17) mg/dL Creatinine 3.28 H (0.52-1.04) mg/dL Glucose 175 H (74-99) mg/dL POC Glucose (mg/dL) 225 H (75-99) mg/dL Calcium 7.8 L (8.4-10.2) mg/dL Phosphorus (2.5-4.5) mg/dL Creatine Kinase (30-135) U/L Total Protein (6.3-8.2) g/dL Albumin (3.5-5.0) g/dL Procalcitonin (0.02-0.09) ng/mL 02/13/21 02/13/21 02/13/21 Range/Units 06:18 07:12 11:30 RBC (3.80-5.40) m/uL Hgb (11.4-16.0) gm/dL Hct (34.0-46.0) % ESR (0-20) mm/hr ABG pCO2 (35-45) mmHg ABG HCO3 (21-25) mmol/L ABG O2 Saturation (94-97) % Sodium 134 L (137-145) mmol/L Potassium 5.4 H (3.5-5.1) mmol/L Carbon Dioxide 16 L (22-30) mmol/L BUN 88 H (7-17) mg/dL Creatinine 3.31 H (0.52-1.04) mg/dL Glucose 281 H (74-99) mg/dL POC Glucose (mg/dL) 263 H 328 H (75-99) mg/dL Calcium 7.9 L (8.4-10.2) mg/dL Phosphorus 7.2 H (2.5-4.5) mg/dL Creatine Kinase 27 L (30-135) U/L Total Protein 6.1 L (6.3-8.2) g/dL Albumin 2.6 L (3.5-5.0) g/dL Procalcitonin (0.02-0.09) ng/mL Microbiology - Last 24 Hours (Table) 02/12/21 12:28 Nasal Screen MRSA/MSSA - Preliminary Nasal Swab Assessment and Plan Assessment: Patient seen and examined independently. Patient was also seen by Mark Alonzo NP and case was discussed. I am in agreement with subjective, physical exam, assessment and plan as written above and amended below. Patient is much more comfortable after being started on AIRVO. Still with some shortness of breath but much better than yesterday. Denies any nausea, vomiting, diarrhea. Was able to eat small amounts for breakfast. General: [non toxic], [no distress], [appears at stated age] Derm: [warm], [dry] Head: [atraumatic], [normocephalic], [symmetric] Eyes: [EOMI], [no lid lag], [anicteric sclera] Mouth: [no lip lesion], [mucus membranes moist] Cardiovascular: [S1S2 reg], [no murmur], [positive posterior tibial pulse b ilateral], Lungs: [Course bs bilateral] , [no accessory muscle use], 3 word conversational dyspnea. Abdominal: [soft], [ nontender to palpation], [no guarding], [no appreciable organomegaly] Ext: [no gross muscle atrophy], [1+ edema], [no contractures] Neuro: [ CN II-XI grossly intact], [no focal neuro deficits] Psych: [Alert], [oriented], [appropriate affect] D/W Nephrology. Concern is for pulm-renal syndrome/vasculitis. ANCA and anti-GBM not available until at the earliest. Will process with Renal biopsy and continue with steroids. Less likely PNA with sepsis with current procal which could be elevated from THIEN
[2021-02-13] MEDS: ALBUTEROL NEBULIZED 2.5 MG/3 ML INHALATION PRN ×3 (11:26→23:57)
[2021-02-13 11:31] LABS: Glucose,Whole Blood 328 mg/dL (75-99)
[2021-02-13] MEDS: DAPTOmycin 500 MG in SODIUM CHLORIDE 0.9% 50 ML IVPB SCH (13:09)
--- NOTE | 2021-02-13 13:11 | P.CNPUL ---
History of Present Illness Consult date: 02/13/21 Requesting physician: Evelia Bay Reason for consult: dyspnea, cough, hypoxemia, pneumonia, pleural effusion, abnormal CXR/CT Chief complaint: Shortness of breath, abnormal chest x-ray and CAT scan. History of present illness: Pulmonary consult dated 02/13/2021. 61-year-old who presented to the emergency department on January 31, with headache, possible seizure, and also possible infection to the left foot. The patient had apparently not been feeling well for about 3-4 days prior to ad mission. She had a right-sided occipital headache. In addition, she apparently stepped on a stick in the yard, and developed some redness and drainage from the left foot. In addition, the patient apparently had a low-grade fever. The patient does have a history of diabetes mellitus. She recently moved to [place], from [place]. She has no doctor in this area. Anyway, over the last few days, she's been complaining of shortness of breath. Her oxygen requirements have been going up, and a chest x-ray showed bilateral infiltrates and possibly effusions, as well as a computed tomography scan showing bilateral pleural effusions, and bibasilar infiltrates and atelectasis, left greater than right. For that reason, we were consulted. The patient was on AIRVO at 45 L/m with an FiO2 of 56%. She did not appear to be particularly short of breath. The patient did state that since being on the AIRVO, she has felt better. She does have a cough, which is nonproductive. She denies any chest pain or chest discomfort. She also denies any fever or chills. Her chest x-ray and CAT scan are reviewed. White count 10.5, hemoglobin 9.9, hematocrit 30.8, and platelet count 411,000. Sed rate is 99. Sodium 134, potassium 5.4, chlorides 107, CO2 16, anion gap 11, BUN 88, and creatinine 3.31. Calcium 7.9, phosphorus 7.2. Venous Dopplers of the bilateral lower extremities were negative for DVT. A perfusion lung scan was low probability for PE. A chest x-ray done on the , showed bilateral basilar infiltrates, left greater than right, with more dense consolidation in the left lower lobe. CAT scan of the chest showed bilateral pleural effusions, with extensive bilateral pneumonia and lower lobe atelectasis. COVID testing was negative, and the pro-calcitonin level was a bit elevated at 0.36. Review of Systems REVIEW OF SYSTEMS: CONSTITUTIONAL: [Negative.] NEUROLOGIC: [ Negative.] HEENT: [ Negative.] CARDIAC: [Negative.] PULMONARY: Shortness of breath, and dry cough. GI: [Negative.] : [Negative.] RHEUMATOLOGIC: [ Negative.] IMMUNOLOGIC: [ Negative.] ENDOCRINE: [Negative. 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 Past Anesthesia/Blood Transfusion Reactions: No Reported Reaction Past Psychological History: Anxiety Smoking Status: Never smoker Past Alcohol Use History: None Reported Past Drug Use History: None Reported - Past Family History family Family Medical History: No Reported History Medications and Allergies Home Medications Medication Instructions Recorded Confirmed Type DULoxetine HCL [Cymbalta] 30 mg PO DAILY 02/09/21 02/09/21 History Linagliptin [Tradjenta] 5 mg PO DAILY 02/09/21 02/09/21 History Nortriptyline [Pamelor] 50 mg PO HS 02/09/21 02/09/21 History Cephalexin [Keflex] 500 mg PO Q6HR 14 Days #56 cap 02/10/21 Rx Insulin Detemir (Levemir) [Levemir] 10 unit SQ DAILY@0700 #1 dispenser 02/10/21 Rx Pregabalin [Lyrica] 75 mg PO BID 30 Days #60 cap 02/10/21 Rx Allergies Allergy/AdvReac Type Severity Reaction Status Date / Time No Known Allergies Allergy Verified 01/31/21 18:03 Physical Exam Osteopathic Statement: *. No significant issues noted on an osteopathic structural exam other than those noted in the History and Physical/Consult. Vitals: Vital Signs Temp Pulse Pulse Pulse Resp BP BP 02/13/21 11:38 90 18 02/13/21 11:29 02/13/21 11:28 90 18 02/13/21 08:33 97.8 F 74 18 156/83 02/13/21 08:00 23 02/13/21 07:33 02/13/21 03:18 02/13/21 02:11 97.6 F 70 24 124/71 02/13/21 00:35 02/12/21 21:40 02/12/21 20:00 98.6 F 82 92 22 150/75 02/12/21 18:22 100 02/12/21 18:15 98 02/12/21 15:20 98.3 F 90 20 136/64 02/12/21 14:20 98.8 F 95 18 143/64 02/12/21 13:42 20 Pulse Ox 02/13/21 11:38 02/13/21 11:29 95 02/13/21 11:28 02/13/21 08:33 02/13/21 08:00 02/13/21 07:33 95 02/13/21 03:18 98 02/13/21 02:11 98 02/13/21 00:35 99 02/12/21 21:40 96 02/12/21 20:00 100 02/12/21 18:22 02/12/21 18:15 02/12/21 15:20 94 L 02/12/21 14:20 92 L 02/12/21 13:42 Intake and Output 02/12/21 02/13/21 02/13/21 22:59 06:59 14:59 Intake Total 300 380 Balance 300 380 Intake: Intake, IV Titration 300 Amount Sodium Chloride 0.9% 1, 300 000 ml @ 50 mls/hr IV . Q20H [facility] Rx#:[id number] Oral 380 Other: Voiding Method Toilet Toilet Bedside Commode # Voids 1 1 1 # Bowel Movements 1 No acute distress, oriented 3. Currently on AIRVO at 45 L/m with an FiO2 of 56%. No obvious respiratory distress, use of accessory muscles, or audible wheezing. HEENT examination is grossly unremarkable. Neck supple. Full range of motion. No adenopathy thyromegaly or neck vein distention. Cardiovascular examination reveals regular rhythm rate. S1-S2 normal. No S3 or S4. No discernible murmur noted. Heart sounds are very distant. Heart rate 90 bpm. Lungs reveal bilateral coarse expiratory rhonchi. Bibasilar crackles are appreciated. There is dullness at the bases. Breath sounds are diminished at the bases. Abdomen soft bowel sounds are heard. No masses or tenderness. Extremities are intact. No cyanosis clubbing or edema. Skin is without rash or lesion. Neurologic examination is brief but nonfocal. Results - Laboratory Findings CBC and BMP: 02/13/21 06:18 02/13/21 06:18 ABG ABG pH 7.35 (7.35-7.45) 02/12/21 18:23 ABG pCO2 33 mmHg (35-45) L 02/12/21 18:23 ABG pO2 106 mmHg (83-108) 02/12/21 18:23 ABG O2 Saturation 97.9 % (94-97) H 02/12/21 18:23 PT/INR, D-dimer PT 11.0 sec (9.0-12.0) 02/13/21 06:18 INR 1.0 (<1.2) 02/13/21 06:18 D-Dimer 6.04 mg/L FEU (<0.60) H 02/10/21 18:12 Abnormal lab findings: Abnormal Labs 01/31/21 01/31/21 01/31/21 18:42 18:42 18:42 WBC 25.2 H RBC Hgb Hct MCH MCHC Immature Gran # Neutrophils # Monocytes # Eosinophils # ESR 42 H APTT D-Dimer ABG pCO2 ABG pO2 ABG HCO3 ABG O2 Saturation Sodium Potassium Carbon Dioxide BUN 19 H Creatinine Est GFR (CKD-EPI)AfAm Est GFR (CKD-EPI)NonAf BUN/Creatinine Ratio Glucose 182 H POC Glucose (mg/dL) Hemoglobin A1c Calcium Phosphorus Total Bilirubin Alkaline Phosphatase 131 H Lactate Dehydrogenase Creatine Kinase C-Reactive Protein Total Protein Albumin Albumin/Globulin Ratio Vitamin B6 Procalcitonin Urine Appearance Ur Specific Nunez Urine Protein Urine Glucose (UA) Urine Ketones Urine Blood Urine Nitrite Urine Bacteria Urine Mucus 01/31/21 01/31/21 02/01/21 18:42 20:54 04:34 WBC 20.97 H RBC Hgb Hct MCH 26.7 L MCHC 31.3 L Immature Gran # 0.10 H Neutrophils # 17.12 H Monocytes # 1.27 H Eosinophils # 0.03 L ESR APTT D-Dimer ABG pCO2 ABG pO2 ABG HCO3 ABG O2 Saturation Sodium Potassium Carbon Dioxide BUN Creatinine Est GFR (CKD-EPI)AfAm Est GFR (CKD-EPI)NonAf BUN/Creatinine Ratio Glucose POC Glucose (mg/dL) Hemoglobin A1c Calcium Phosphorus Total Bilirubin Alkaline Phosphatase Lactate Dehydrogenase Creatine Kinase C-Reactive Protein 19.0 H Total Protein Albumin Albumin/Globulin Ratio Vitamin B6 Procalcitonin Urine Appearance Ur Specific Nunez 1.037 H Urine Protein Trace H Urine Glucose (UA) 4+ H Urine Ketones Urine Blood Urine Nitrite Positive H Urine Bacteria Urine Mucus Rare H 02/01/21 02/01/21 02/01/21 04:34 04:34 12:27 WBC RBC Hgb Hct MCH MCHC Immature Gran # Neutrophils # Monocytes # Eosinophils # ESR APTT D-Dimer ABG pCO2 ABG pO2 ABG HCO3 ABG O2 Saturation Sodium Potassium Carbon Dioxide BUN Creatinine Est GFR (CKD-EPI)AfAm Est GFR (CKD-EPI)NonAf BUN/Creatinine Ratio Glucose POC Glucose (mg/dL) 70 L Hemoglobin A1c 8.1 H Calcium 8.3 L Phosphorus Total Bilirubin Alkaline Phosphatase Lactate Dehydrogenase Creatine Kinase C-Reactive Protein Total Protein Albumin 3.60 L Albumin/Globulin Ratio 1.38 L Vitamin B6 Procalcitonin Urine Appearance Ur Specific Nunez Urine Protein Urine Glucose (UA) Urine Ketones Urine Blood Urine Nitrite Urine Bacteria Urine Mucus 02/01/21 02/01/21 02/02/21 16:43 20:48 05:27 WBC RBC Hgb Hct MCH MCHC Immature Gran # Neutrophils # Monocytes # Eosinophils # ESR APTT D-Dimer ABG pCO2 ABG pO2 ABG HCO3 ABG O2 Saturation Sodium Potassium Carbon Dioxide BUN Creatinine 0.51 L Est GFR (CKD-EPI)AfAm Est GFR (CKD-EPI)NonAf BUN/Creatinine Ratio Glucose POC Glucose (mg/dL) 102 H 111 H Hemoglobin A1c Calcium Phosphorus Total Bilirubin Alkaline Phosphatase Lactate Dehydrogenase Creatine Kinase C-Reactive Protein Total Protein Albumin Albumin/Globulin Ratio Vitamin B6 Procalcitonin Urine Appearance Ur Specific Nunez Urine Protein Urine Glucose (UA) Urine Ketones Urine Blood Urine Nitrite Urine Bacteria Urine Mucus 02/02/21 02/02/21 02/02/21 07:53 08:34 17:52 WBC 15.1 H RBC Hgb Hct MCH MCHC Immature Gran # Neutrophils # 12.3 H Monocytes # Eosinophils # ESR APTT D-Dimer ABG pCO2 ABG pO2 ABG HCO3 ABG O2 Saturation Sodium Potassium Carbon Dioxide BUN Creatinine Est GFR (CKD-EPI)AfAm Est GFR (CKD-EPI)NonAf BUN/Creatinine Ratio Glucose POC Glucose (mg/dL) 67 L 183 H Hemoglobin A1c Calcium Phosphorus Total Bilirubin Alkaline Phosphatase Lactate Dehydrogenase Creatine Kinase C-Reactive Protein Total Protein Albumin Albumin/Globulin Ratio Vitamin B6 Procalcitonin Urine Appearance Ur Specific Nunez Urine Protein Urine Glucose (UA) Urine Ketones Urine Blood Urine Nitrite Urine Bacteria Urine Mucus 02/02/21 02/02/21 02/03/21 21:00 21:44 04:44 WBC 12.5 H RBC Hgb Hct MCH MCHC Immature Gran # Neutrophils # 9.4 H Monocytes # Eosinophils # ESR APTT D-Dimer ABG pCO2 ABG pO2 ABG HCO3 ABG O2 Saturation Sodium Potassium Carbon Dioxide BUN Creatinine Est GFR (CKD-EPI)AfAm Est GFR (CKD-EPI)NonAf BUN/Creatinine Ratio Glucose POC Glucose (mg/dL) 159 H 147 H Hemoglobin A1c Calcium Phosphorus Total Bilirubin Alkaline Phosphatase Lactate Dehydrogenase Creatine Kinase C-Reactive Protein Total Protein Albumin Albumin/Globulin Ratio Vitamin B6 Procalcitonin Urine Appearance Ur Specific Nunez Urine Protein Urine Glucose (UA) Urine Ketones Urine Blood Urine Nitrite Urine Bacteria Urine Mucus 02/03/21 02/03/21 02/03/21 04:44 07:01 11:55 WBC RBC Hgb Hct MCH MCHC Immature Gran # Neutrophils # Monocytes # Eosinophils # ESR APTT D-Dimer ABG pCO2 ABG pO2 ABG HCO3 ABG O2 Saturation Sodium Potassium Carbon Dioxide BUN Creatinine Est GFR (CKD-EPI)AfAm Est GFR (CKD-EPI)NonAf BUN/Creatinine Ratio Glucose 172 H POC Glucose (mg/dL) 116 H 150 H Hemoglobin A1c Calcium 8.5 L Phosphorus Total Bilirubin Alkaline Phosphatase Lactate Dehydrogenase Creatine Kinase C-Reactive Protein Total Protein Albumin Albumin/Globulin Ratio Vitamin B6 Procalcitonin Urine Appearance Ur Specific Nunez Urine Protein Urine Glucose (UA) Urine Ketones Urine Blood Urine Nitrite Urine Bacteria Urine Mucus 02/03/21 02/03/21 02/04/21 17:31 20:42 05:59 WBC 12.8 H RBC Hgb Hct MCH MCHC Immature Gran # Neutrophils # 9.1 H Monocytes # Eosinophils # ESR APTT D-Dimer ABG pCO2 ABG pO2 ABG HCO3 ABG O2 Saturation Sodium Potassium Carbon Dioxide BUN Creatinine Est GFR (CKD-EPI)AfAm Est GFR (CKD-EPI)NonAf BUN/Creatinine Ratio Glucose POC Glucose (mg/dL) 155 H 173 H Hemoglobin A1c Calcium Phosphorus Total Bilirubin Alkaline Phosphatase Lactate Dehydrogenase Creatine Kinase C-Reactive Protein Total Protein Albumin Albumin/Globulin Ratio Vitamin B6 Procalcitonin Urine Appearance Ur Specific Nunez Urine Protein Urine Glucose (UA) Urine Ketones Urine Blood Urine Nitrite Urine Bacteria Urine Mucus 02/04/21 02/04/21 02/04/21 07:35 12:15 17:32 WBC RBC Hgb Hct MCH MCHC Immature Gran # Neutrophils # Monocytes # Eosinophils # ESR APTT D-Dimer ABG pCO2 ABG pO2 ABG HCO3 ABG O2 Saturation Sodium Potassium Carbon Dioxide BUN Creatinine Est GFR (CKD-EPI)AfAm Est GFR (CKD-EPI)NonAf BUN/Creatinine Ratio Glucose POC Glucose (mg/dL) 146 H 143 H 201 H Hemoglobin A1c Calcium Phosphorus Total Bilirubin Alkaline Phosphatase Lactate Dehydrogenase Creatine Kinase C-Reactive Protein Total Protein Albumin Albumin/Globulin Ratio Vitamin B6 Procalcitonin Urine Appearance Ur Specific Nunez Urine Protein Urine Glucose (UA) Urine Ketones Urine Blood Urine Nitrite Urine Bacteria Urine Mucus 02/04/21 02/05/21 02/05/21 20:53 06:27 06:27 WBC 15.3 H RBC Hgb Hct MCH MCHC Immature Gran # Neutrophils # 11.7 H Monocytes # Eosinophils # ESR APTT D-Dimer ABG pCO2 ABG pO2 ABG HCO3 ABG O2 Saturation Sodium Potassium Carbon Dioxide BUN Creatinine Est GFR (CKD-EPI)AfAm Est GFR (CKD-EPI)NonAf BUN/Creatinine Ratio 28.33 H Glucose 176 H POC Glucose (mg/dL) 238 H Hemoglobin A1c Calcium 8.5 L Phosphorus Total Bilirubin Alkaline Phosphatase Lactate Dehydrogenase Creatine Kinase C-Reactive Protein Total Protein Albumin Albumin/Globulin Ratio Vitamin B6 Procalcitonin Urine Appearance Ur Specific Nunez Urine Protein Urine Glucose (UA) Urine Ketones Urine Blood Urine Nitrite Urine Bacteria Urine Mucus 02/05/21 02/05/21 02/05/21 07:16 12:12 17:34 WBC RBC Hgb Hct MCH MCHC Immature Gran # Neutrophils # Monocytes # Eosinophils # ESR APTT D-Dimer ABG pCO2 ABG pO2 ABG HCO3 ABG O2 Saturation Sodium Potassium Carbon Dioxide BUN Creatinine Est GFR (CKD-EPI)AfAm Est GFR (CKD-EPI)NonAf BUN/Creatinine Ratio Glucose POC Glucose (mg/dL) 172 H 248 H 342 H Hemoglobin A1c Calcium Phosphorus Total Bilirubin Alkaline Phosphatase Lactate Dehydrogenase Creatine Kinase C-Reactive Protein Total Protein Albumin Albumin/Globulin Ratio Vitamin B6 Procalcitonin Urine Appearance Ur Specific Nunez Urine Protein Urine Glucose (UA) Urine Ketones Urine Blood Urine Nitrite Urine Bacteria Urine Mucus 02/05/21 02/06/21 02/06/21 20:40 04:50 04:50 WBC 15.1 H RBC Hgb Hct MCH MCHC Immature Gran # Neutrophils # 10.9 H Monocytes # Eosinophils # ESR APTT D-Dimer ABG pCO2 ABG pO2 ABG HCO3 ABG O2 Saturation Sodium Potassium Carbon Dioxide BUN Creatinine Est GFR (CKD-EPI)AfAm Est GFR (CKD-EPI)NonAf BUN/Creatinine Ratio 30.00 H Glucose 166 H POC Glucose (mg/dL) 353 H Hemoglobin A1c Calcium Phosphorus Total Bilirubin Alkaline Phosphatase Lactate Dehydrogenase Creatine Kinase C-Reactive Protein 9.7 H Total Protein Albumin Albumin/Globulin Ratio Vitamin B6 Procalcitonin Urine Appearance Ur Specific Nunez Urine Protein Urine Glucose (UA) Urine Ketones Urine Blood Urine Nitrite Urine Bacteria Urine Mucus 02/06/21 02/06/21 02/06/21 08:05 12:03 17:22 WBC RBC Hgb Hct MCH MCHC Immature Gran # Neutrophils # Monocytes # Eosinophils # ESR APTT D-Dimer ABG pCO2 ABG pO2 ABG HCO3 ABG O2 Saturation Sodium Potassium Carbon Dioxide BUN Creatinine Est GFR (CKD-EPI)AfAm Est GFR (CKD-EPI)NonAf BUN/Creatinine Ratio Glucose POC Glucose (mg/dL) 188 H 186 H 122 H Hemoglobin A1c Calcium Phosphorus Total Bilirubin Alkaline Phosphatase Lactate Dehydrogenase Creatine Kinase C-Reactive Protein Total Protein Albumin Albumin/Globulin Ratio Vitamin B6 Procalcitonin Urine Appearance Ur Specific Nunez Urine Protein Urine Glucose (UA) Urine Ketones Urine Blood Urine Nitrite Urine Bacteria Urine Mucus 02/06/21 02/07/21 02/07/21 22:17 06:00 06:00 WBC 14.3 H RBC Hgb Hct MCH MCHC Immature Gran # Neutrophils # 11.2 H Monocytes # Eosinophils # ESR APTT D-Dimer ABG pCO2 ABG pO2 ABG HCO3 ABG O2 Saturation Sodium Potassium Carbon Dioxide BUN Creatinine Est GFR (CKD-EPI)AfAm Est GFR (CKD-EPI)NonAf BUN/Creatinine Ratio 32.86 H Glucose 134 H POC Glucose (mg/dL) 120 H Hemoglobin A1c Calcium 8.5 L Phosphorus Total Bilirubin Alkaline Phosphatase Lactate Dehydrogenase Creatine Kinase C-Reactive Protein Total Protein Albumin Albumin/Globulin Ratio Vitamin B6 Procalcitonin Urine Appearance Ur Specific Nunez Urine Protein Urine Glucose (UA) Urine Ketones Urine Blood Urine Nitrite Urine Bacteria Urine Mucus 02/07/21 02/07/21 02/07/21 06:00 07:22 12:24 WBC RBC Hgb Hct MCH MCHC Immature Gran # Neutrophils # Monocytes # Eosinophils # ESR APTT D-Dimer ABG pCO2 ABG pO2 ABG HCO3 ABG O2 Saturation Sodium Potassium Carbon Dioxide BUN Creatinine Est GFR (CKD-EPI)AfAm Est GFR (CKD-EPI)NonAf BUN/Creatinine Ratio Glucose POC Glucose (mg/dL) 139 H 149 H Hemoglobin A1c Calcium Phosphorus Total Bilirubin Alkaline Phosphatase Lactate Dehydrogenase Creatine Kinase C-Reactive Protein Total Protein Albumin Albumin/Globulin Ratio Vitamin B6 4 L Procalcitonin Urine Appearance Ur Specific Nunez Urine Protein Urine Glucose (UA) Urine Ketones Urine Blood Urine Nitrite Urine Bacteria Urine Mucus 02/07/21 02/07/21 02/08/21 16:58 20:43 03:30 WBC RBC Hgb Hct MCH MCHC Immature Gran # Neutrophils # Monocytes # Eosinophils # ESR APTT D-Dimer ABG pCO2 ABG pO2 ABG HCO3 ABG O2 Saturation Sodium Potassium Carbon Dioxide BUN Creatinine Est GFR (CKD-EPI)AfAm Est GFR (CKD-EPI)NonAf BUN/Creatinine Ratio Glucose POC Glucose (mg/dL) 187 H 192 H 136 H Hemoglobin A1c Calcium Phosphorus Total Bilirubin Alkaline Phosphatase Lactate Dehydrogenase Creatine Kinase C-Reactive Protein Total Protein Albumin Albumin/Globulin Ratio Vitamin B6 Procalcitonin Urine Appearance Ur Specific Nunez Urine Protein Urine Glucose (UA) Urine Ketones Urine Blood Urine Nitrite Urine Bacteria Urine Mucus 02/08/21 02/08/21 02/08/21 07:13 11:54 17:10 WBC RBC Hgb Hct MCH MCHC Immature Gran # Neutrophils # Monocytes # Eosinophils # ESR APTT D-Dimer ABG pCO2 ABG pO2 ABG HCO3 ABG O2 Saturation Sodium Potassium Carbon Dioxide BUN Creatinine Est GFR (CKD-EPI)AfAm Est GFR (CKD-EPI)NonAf BUN/Creatinine Ratio Glucose POC Glucose (mg/dL) 148 H 245 H 135 H Hemoglobin A1c Calcium Phosphorus Total Bilirubin Alkaline Phosphatase Lactate Dehydrogenase Creatine Kinase C-Reactive Protein Total Protein Albumin Albumin/Globulin Ratio Vitamin B6 Procalcitonin Urine Appearance Ur Specific Nunez Urine Protein Urine Glucose (UA) Urine Ketones Urine Blood Urine Nitrite Urine Bacteria Urine Mucus 02/08/21 02/09/21 02/09/21 19:59 00:31 05:36 WBC 11.7 H RBC Hgb 10.9 L Hct 32.0 L MCH MCHC Immature Gran # Neutrophils # Monocytes # Eosinophils # ESR APTT D-Dimer ABG pCO2 ABG pO2 ABG HCO3 ABG O2 Saturation Sodium Potassium Carbon Dioxide BUN Creatinine Est GFR (CKD-EPI)AfAm Est GFR (CKD-EPI)NonAf BUN/Creatinine Ratio Glucose POC Glucose (mg/dL) 204 H 167 H Hemoglobin A1c Calcium Phosphorus Total Bilirubin Alkaline Phosphatase Lactate Dehydrogenase Creatine Kinase C-Reactive Protein Total Protein Albumin Albumin/Globulin Ratio Vitamin B6 Procalcitonin Urine Appearance Ur Specific Nunez Urine Protein Urine Glucose (UA) Urine Ketones Urine Blood Urine Nitrite Urine Bacteria Urine Mucus 02/09/21 02/09/21 02/09/21 05:36 07:12 11:23 WBC RBC Hgb Hct MCH MCHC Immature Gran # Neutrophils # Monocytes # Eosinophils # ESR APTT D-Dimer ABG pCO2 ABG pO2 ABG HCO3 ABG O2 Saturation Sodium 134 L Potassium Carbon Dioxide 21.2 L BUN 50.0 H Creatinine 2.1 H Est GFR (CKD-EPI)AfAm 29.1 L Est GFR (CKD-EPI)NonAf 25.1 L BUN/Creatinine Ratio 23.81 H Glucose 134 H POC Glucose (mg/dL) 162 H 183 H Hemoglobin A1c Calcium Phosphorus Total Bilirubin Alkaline Phosphatase Lactate Dehydrogenase Creatine Kinase C-Reactive Protein Total Protein Albumin Albumin/Globulin Ratio Vitamin B6 Procalcitonin Urine Appearance Ur Specific Nunez Urine Protein Urine Glucose (UA) Urine Ketones Urine Blood Urine Nitrite Urine Bacteria Urine Mucus 02/09/21 02/09/21 02/10/21 17:14 21:01 05:15 WBC 12.8 H RBC Hgb 10.9 L Hct 33.9 L MCH MCHC Immature Gran # Neutrophils # Monocytes # Eosinophils # ESR APTT D-Dimer ABG pCO2 ABG pO2 ABG HCO3 ABG O2 Saturation Sodium Potassium Carbon Dioxide BUN Creatinine Est GFR (CKD-EPI)AfAm Est GFR (CKD-EPI)NonAf BUN/Creatinine Ratio Glucose POC Glucose (mg/dL) 143 H 217 H Hemoglobin A1c Calcium Phosphorus Total Bilirubin Alkaline Phosphatase Lactate Dehydrogenase Creatine Kinase C-Reactive Protein Total Protein Albumin Albumin/Globulin Ratio Vitamin B6 Procalcitonin Urine Appearance Ur Specific Nunez Urine Protein Urine Glucose (UA) Urine Ketones Urine Blood Urine Nitrite Urine Bacteria Urine Mucus 02/10/21 02/10/21 02/10/21 05:15 06:43 12:28 WBC RBC Hgb Hct MCH MCHC Immature Gran # Neutrophils # Monocytes # Eosinophils # ESR APTT D-Dimer ABG pCO2 ABG pO2 ABG HCO3 ABG O2 Saturation Sodium 130 L Potassium Carbon Dioxide 19 L BUN 57 H Creatinine 2.54 H Est GFR (CKD-EPI)AfAm Est GFR (CKD-EPI)NonAf BUN/Creatinine Ratio Glucose 115 H POC Glucose (mg/dL) 142 H 130 H Hemoglobin A1c Calcium 7.8 L Phosphorus Total Bilirubin Alkaline Phosphatase Lactate Dehydrogenase Creatine Kinase C-Reactive Protein Total Protein Albumin Albumin/Globulin Ratio Vitamin B6 Procalcitonin Urine Appearance Ur Specific Nunez Urine Protein Urine Glucose (UA) Urine Ketones Urine Blood Urine Nitrite Urine Bacteria Urine Mucus 02/10/21 02/10/21 02/10/21 15:55 17:23 18:12 WBC 12.8 H RBC Hgb 11.0 L Hct 32.8 L MCH MCHC Immature Gran # Neutrophils # 10.6 H Monocytes # Eosinophils # ESR APTT D-Dimer ABG pCO2 ABG pO2 ABG HCO3 ABG O2 Saturation Sodium Potassium Carbon Dioxide BUN Creatinine Est GFR (CKD-EPI)AfAm Est GFR (CKD-EPI)NonAf BUN/Creatinine Ratio Glucose POC Glucose (mg/dL) 163 H Hemoglobin A1c Calcium Phosphorus Total Bilirubin Alkaline Phosphatase Lactate Dehydrogenase Creatine Kinase C-Reactive Protein Total Protein Albumin Albumin/Globulin Ratio Vitamin B6 Procalcitonin Urine Appearance Cloudy H Ur Specific Nunez Urine Protein 2+ H Urine Glucose (UA) Urine Ketones Trace H Urine Blood Small H Urine Nitrite Urine Bacteria Rare H Urine Mucus 02/10/21 02/10/21 02/10/21 18:12 18:12 18:20 WBC RBC Hgb Hct MCH MCHC Immature Gran # Neutrophils # Monocytes # Eosinophils # ESR APTT D-Dimer 6.04 H ABG pCO2 31 L ABG pO2 62 L ABG HCO3 20 L ABG O2 Saturation 92.7 L Sodium 129 L Potassium Carbon Dioxide 18 L BUN 62 H Creatinine 2.60 H Est GFR (CKD-EPI)AfAm Est GFR (CKD-EPI)NonAf BUN/Creatinine Ratio Glucose 148 H POC Glucose (mg/dL) Hemoglobin A1c Calcium 8.1 L Phosphorus Total Bilirubin <0.1 L Alkaline Phosphatase Lactate Dehydrogenase Creatine Kinase C-Reactive Protein Total Protein 6.2 L Albumin 2.7 L Albumin/Globulin Ratio Vitamin B6 Procalcitonin Urine Appearance Ur Specific Nunez Urine Protein Urine Glucose (UA) Urine Ketones Urine Blood Urine Nitrite Urine Bacteria Urine Mucus 02/10/21 02/11/21 02/11/21 21:33 01:31 07:57 WBC RBC Hgb Hct MCH MCHC Immature Gran # Neutrophils # Monocytes # Eosinophils # ESR APTT 40.6 H D-Dimer ABG pCO2 ABG pO2 ABG HCO3 ABG O2 Saturation Sodium Potassium Carbon Dioxide BUN Creatinine Est GFR (CKD-EPI)AfAm Est GFR (CKD-EPI)NonAf BUN/Creatinine Ratio Glucose POC Glucose (mg/dL) 140 H 227 H Hemoglobin A1c Calcium Phosphorus Total Bilirubin Alkaline Phosphatase Lactate Dehydrogenase Creatine Kinase C-Reactive Protein Total Protein Albumin Albumin/Globulin Ratio Vitamin B6 Procalcitonin Urine Appearance Ur Specific Nunez Urine Protein Urine Glucose (UA) Urine Ketones Urine Blood Urine Nitrite Urine Bacteria Urine Mucus 02/11/21 02/11/21 02/11/21 11:34 11:34 11:34 WBC 11.1 H RBC Hgb Hct MCH MCHC Immature Gran # Neutrophils # 9.6 H Monocytes # Eosinophils # ESR 84 H APTT 50.7 H D-Dimer ABG pCO2 ABG pO2 ABG HCO3 ABG O2 Saturation Sodium 130 L Potassium 5.9 H Carbon Dioxide 14 L BUN 69 H Creatinine 2.66 H Est GFR (CKD-EPI)AfAm Est GFR (CKD-EPI)NonAf BUN/Creatinine Ratio Glucose 194 H POC Glucose (mg/dL) Hemoglobin A1c Calcium 8.3 L Phosphorus Total Bilirubin 0.1 L Alkaline Phosphatase 127 H Lactate Dehydrogenase 882 H Creatine Kinase C-Reactive Protein 5.5 H Total Protein Albumin 3.0 L Albumin/Globulin Ratio Vitamin B6 Procalcitonin Urine Appearance Ur Specific Nunez Urine Protein Urine Glucose (UA) Urine Ketones Urine Blood Urine Nitrite Urine Bacteria Urine Mucus 02/11/21 02/11/21 02/11/21 11:52 17:21 20:26 WBC RBC Hgb Hct MCH MCHC Immature Gran # Neutrophils # Monocytes # Eosinophils # ESR APTT D-Dimer ABG pCO2 ABG pO2 ABG HCO3 ABG O2 Saturation Sodium Potassium Carbon Dioxide BUN Creatinine Est GFR (CKD-EPI)AfAm Est GFR (CKD-EPI)NonAf BUN/Creatinine Ratio Glucose POC Glucose (mg/dL) 211 H 249 H 266 H Hemoglobin A1c Calcium Phosphorus Total Bilirubin Alkaline Phosphatase Lactate Dehydrogenase Creatine Kinase C-Reactive Protein Total Protein Albumin Albumin/Globulin Ratio Vitamin B6 Procalcitonin Urine Appearance Ur Specific Nunez Urine Protein Urine Glucose (UA) Urine Ketones Urine Blood Urine Nitrite Urine Bacteria Urine Mucus 02/12/21 02/12/21 02/12/21 06:10 06:10 06:10 WBC 16.0 H RBC 3.75 L Hgb 10.2 L Hct 30.0 L MCH MCHC Immature Gran # Neutrophils # Monocytes # Eosinophils # ESR APTT D-Dimer ABG pCO2 ABG pO2 ABG HCO3 ABG O2 Saturation Sodium 132 L Potassium Carbon Dioxide 17.8 L BUN 81.0 H Creatinine 3.0 H Est GFR (CKD-EPI)AfAm 18.9 L Est GFR (CKD-EPI)NonAf 16.3 L BUN/Creatinine Ratio 27.00 H Glucose 152 H POC Glucose (mg/dL) Hemoglobin A1c Calcium 8.1 L Phosphorus Total Bilirubin Alkaline Phosphatase Lactate Dehydrogenase Creatine Kinase C-Reactive Protein Total Protein Albumin Albumin/Globulin Ratio Vitamin B6 Procalcitonin 0.36 H Urine Appearance Ur Specific Nunez Urine Protein Urine Glucose (UA) Urine Ketones Urine Blood Urine Nitrite Urine Bacteria Urine Mucus 02/12/21 02/12/21 02/12/21 07:26 12:23 17:06 WBC RBC Hgb Hct MCH MCHC Immature Gran # Neutrophils # Monocytes # Eosinophils # ESR APTT D-Dimer ABG pCO2 ABG pO2 ABG HCO3 ABG O2 Saturation Sodium Potassium Carbon Dioxide BUN Creatinine Est GFR (CKD-EPI)AfAm Est GFR (CKD-EPI)NonAf BUN/Creatinine Ratio Glucose POC Glucose (mg/dL) 143 H 240 H 180 H Hemoglobin A1c Calcium Phosphorus Total Bilirubin Alkaline Phosphatase Lactate Dehydrogenase Creatine Kinase C-Reactive Protein Total Protein Albumin Albumin/Globulin Ratio Vitamin B6 Procalcitonin Urine Appearance Ur Specific Nunez Urine Protein Urine Glucose (UA) Urine Ketones Urine Blood Urine Nitrite Urine Bacteria Urine Mucus 02/12/21 02/12/21 02/12/21 18:23 18:42 20:37 WBC RBC Hgb Hct MCH MCHC Immature Gran # Neutrophils # Monocytes # Eosinophils # ESR APTT D-Dimer ABG pCO2 33 L ABG pO2 ABG HCO3 18 L ABG O2 Saturation 97.9 H Sodium 131 L Potassium 5.2 H Carbon Dioxide 17 L BUN 79 H Creatinine 3.28 H Est GFR (CKD-EPI)AfAm Est GFR (CKD-EPI)NonAf BUN/Creatinine Ratio Glucose 175 H POC Glucose (mg/dL) 225 H Hemoglobin A1c Calcium 7.8 L Phosphorus Total Bilirubin Alkaline Phosphatase Lactate Dehydrogenase Creatine Kinase C-Reactive Protein Total Protein Albumin Albumin/Globulin Ratio Vitamin B6 Procalcitonin Urine Appearance Ur Specific Nunez Urine Protein Urine Glucose (UA) Urine Ketones Urine Blood Urine Nitrite Urine Bacteria Urine Mucus 02/13/21 02/13/21 02/13/21 06:18 06:18 07:12 WBC RBC 3.68 L Hgb 9.9 L Hct 30.8 L MCH MCHC Immature Gran # Neutrophils # Monocytes # Eosinophils # ESR 99 H APTT D-Dimer ABG pCO2 ABG pO2 ABG HCO3 ABG O2 Saturation Sodium 134 L Potassium 5.4 H Carbon Dioxide 16 L BUN 88 H Creatinine 3.31 H Est GFR (CKD-EPI)AfAm Est GFR (CKD-EPI)NonAf BUN/Creatinine Ratio Glucose 281 H POC Glucose (mg/dL) 263 H Hemoglobin A1c Calcium 7.9 L Phosphorus 7.2 H Total Bilirubin Alkaline Phosphatase Lactate Dehydrogenase Creatine Kinase 27 L C-Reactive Protein Total Protein 6.1 L Albumin 2.6 L Albumin/Globulin Ratio Vitamin B6 Procalcitonin Urine Appearance Ur Specific Nunez Urine Protein Urine Glucose (UA) Urine Ketones Urine Blood Urine Nitrite Urine Bacteria Urine Mucus 02/13/21 11:30 WBC RBC Hgb Hct MCH MCHC Immature Gran # Neutrophils # Monocytes # Eosinophils # ESR APTT D-Dimer ABG pCO2 ABG pO2 ABG HCO3 ABG O2 Saturation Sodium Potassium Carbon Dioxide BUN Creatinine Est GFR (CKD-EPI)AfAm Est GFR (CKD-EPI)NonAf BUN/Creatinine Ratio Glucose POC Glucose (mg/dL) 328 H Hemoglobin A1c Calcium Phosphorus Total Bilirubin Alkaline Phosphatase Lactate Dehydrogenase Creatine Kinase C-Reactive Protein Total Protein Albumin Albumin/Globulin Ratio Vitamin B6 Procalcitonin Urine Appearance Ur Specific Nunez Urine Protein Urine Glucose (UA) Urine Ketones Urine Blood Urine Nitrite Urine Bacteria Urine Mucus - Diagnostic Findings Chest x-ray: image reviewed CT scan - chest: image reviewed U/S of Legs: image reviewed Assessment and Plan Assessment: Acute hypoxemic respiratory failure, multifactorial, in part related to bilateral pleural effusions, and also, bibasilar pneumonia. Status post puncture wound to the left foot, which has become infected with methicillin sensitive staph aureus. History of diabetes mellitus. Non-anion gap metabolic acidosis, secondary to renal failure. History of acute kidney injury. Mild hyperkalemia. Anemia. Plan: Plan dated 02/13/2021. The patient remains on doxycycline daptomycin and Zosyn. The patient has been seen by nephrology for her renal failure. The patient was placed on prednisone by nephrology. The patient may end up requiring hemodialysis. The pro- calcitonin level is a bit elevated. For that, the patient remains on antibiotics in the form of daptomycin, doxycycline, and Zosyn. Infectious disease team is following. We will order an ultrasound of the chest, to determine whether or not there is fluid worth putting a needle into. We will continue to follow make recommendations where appropriate. Time with Patient: Greater than 30
--- NOTE | 2021-02-13 14:16 | US ---
EXAMINATION TYPE: US chest DATE OF EXAM: 02/13/2021 COMPARISON: CT chest 02/12/2021 CLINICAL HISTORY: Markings for thoracentesis by pulmonary staff. Pleural effusion Exam done portable. TECHNIQUE: Targeted ultrasound of the posterior lower bilateral hemithoraces EXAM MEASUREMENTS: Right Pleural Effusion pocket size: 7.8 cm Right skin surface to fluid distance: 4.2 cm Lung seen within anterior portion of fluid pocket Left Pleural Effusion pocket size: 10.4 cm Left skin surface to fluid distance: 3.4 cm Lung seen within anterior portion of fluid pocket Right side marked for possible thoracentesis outside the dept. Left side marked for possible thoracentesis outside the dept. Pulmonologists are able to review the images in the patient?s EMR. IMPRESSIONS: Mild to moderate bilateral pleural effusions.
[2021-02-13] MEDS: ACETAMINOPHEN TAB 325 MG TAB PO PRN (15:54)
[2021-02-13 16:23] LABS: Glucose,Whole Blood 381 mg/dL (75-99)
[2021-02-13 20:49] LABS: Glucose,Whole Blood 279 mg/dL (75-99)
--- NOTE | 2021-02-13 21:20 | PN ---
PROGRESS NOTE DATE OF SERVICE: 02/13/2021 REASON FOR FOLLOWUP: Left foot abscess and cellulitis secondary to MSSA. INTERVAL HISTORY: The patient is afebrile. The patient is breathing slightly comfortably. Patient denies any chest pain. Minimal cough. No nausea. No vomiting. No abdominal pain. Has significant swelling to lower extremity. No pain to the left foot. PHYSICAL EXAMINATION: Blood pressure 155/76, pulse of 83, temperature 97.8. She is 98% on 55% FiO2. General description is a middle-aged female lying in bed in no distress. Respiratory system: Unlabored breathing, decreased breath sounds in the base, with no wheeze. Heart S1, S2. Regular rate and rhythm. Abdomen soft, no tenderness. Extremities with 2+ edema of feet. Foot wound is currently dressed. No drainage on the dressing. LABS: Hemoglobin 9.0, white count 10.5, BUN of 88, creatinine 2.31. DIAGNOSTIC IMPRESSION AND PLAN: Patient with left foot abscess status post drainage. Culture with MSSA, subsequently did have worsening of her renal failure, being monitored by the Nephrology service. Clinically doubt pneumonia as respiratory distress seems to be more of a fluid overload. Pulmonary is following the patient. Continue daptomycin. Transition to oral antibiotic on discharge. Continue supportive care. MMODL / IJN: [id number] /
[2021-02-14] MEDS: ACETAMINOPHEN TAB 325 MG TAB PO PRN ×2 (02:39→15:07)
[2021-02-14 06:53] LABS: Glucose,Whole Blood 247 mg/dL (75-99)
[2021-02-14 07:26] LABS: Amorphous Sediment,Urine Few /hpf; Appearance,Urine Cloudy (Clear); Bacteria,Urine Rare /hpf; Bilirubin,Urine Negative (Negative); Blood,Urine Moderate (Negative); Color,Urine Yellow; Glucose,Urine (UA) Negative (Negative); Ketones,Urine Negative (Negative); Leukocyte Esterase,Urine Negative (Negative); Mucus,Urine Rare /hpf; Nitrite,Urine Negative (Negative); PH, Urine 5.5 (5.0-8.0); Protein,Urine 3+ (Negative); RBC,Urine 45 /hpf (0-5); Specific Gravity,Urine 1.017 (1.001-1.035); Squamous Epithelial Cell,Urine 2 /hpf (0-4); Urobilinogen,Urine <2.0 mg/dL (<2.0); WBC,Urine 6 /hpf (0-5)
[2021-02-14 07:51] LABS: Herpes simplex I and/or II IgM 0.13 INDEX (<=0.90); Herpes simplex IgG I Ab 7.44 (< or = 0.90); Herpes simplex IgG II Ab 15.2 (< or = 0.90)
[2021-02-14] MEDS: INSULIN DETEMIR (LEVEMIR) 100 UNIT/ML SYR SQ SCH ×2 (08:21→22:05)
[2021-02-14] MEDS: PIPERACILLIN-TAZOBACTAM 3.375 GM in SODIUM CHLORIDE 0.9% 100 ML IVPB SCH ×2 (08:21→22:05)
[2021-02-14] MEDS: INSULIN ASPART (NovoLOG) 100 UNIT/ML VIAL SQ SCH ×7 (08:22→22:05)
[2021-02-14] MEDS: PREGABALIN 75 MG CAP PO SCH ×2 (08:22→22:05)
[2021-02-14] MEDS: SODIUM BICARBONATE TAB 650 MG TAB PO SCH ×4 (08:23→22:05)
[2021-02-14] MEDS: FOLIC ACID 1 MG TAB PO SCH (08:23)
[2021-02-14] MEDS: DOXYCYCLINE 100 MG CAP PO SCH ×2 (08:23→22:05)
[2021-02-14] MEDS: CYANOCOBALAMIN 500 MCG TAB PO SCH (08:23)
[2021-02-14] MEDS: FAMOTIDINE 20 MG TAB PO SCH (08:23)
[2021-02-14] MEDS: predniSONE 10 MG TAB PO SCH ×2 (08:23→22:05)
[2021-02-14] MEDS: HYDROCORTISONE 1% CREAM 454 GM JAR TOPICAL SCH ×3 (08:46→22:06)
[2021-02-14] MEDS ORDERED: FUROSEMIDE 10 MG/ML 10 ML VIAL IV STA (11:03)
--- NOTE | 2021-02-14 11:09 | ECHOF ---
Referral Reason:Hypoxemia, effusions, elevated BNP MEASUREMENTS -------- HEIGHT: 162.6 cm WEIGHT: 81.6 kg BP: RVIDd: 2.6 cm (< 3.3) IVSd: 1.1 cm (0.6 - 1.1) LVIDd: 4.0 cm (3.9 - 5.3) LVPWd: 1.2 cm (0.6 - 1.1) IVSs: 1.5 cm LVIDs: 2.8 cm LVPWs: 1.2 cm LA Diam: 3.7 cm (2.7 - 3.8) Ao Diam: 2.8 cm (2.0 - 3.7) AV Cusp: 2.0 cm (1.5 - 2.6) LA Diam: 3.7 cm (2.7 - 3.8) MV EXCURSION: 15.271 mm (> 18.000) MV EF SLOPE: 128 mm/s (70 - 150) EPSS: 0.4 cm MV E Jean-Claude: 1.18 m/s MV DecT: 132 ms MV A Jean-Claude: 0.89 m/s MV E/A Ratio: 1.33 RAP: 5.00 mmHg RVSP: 31.23 mmHg FINDINGS -------- Sinus rhythm. This was a technically good study. LV size, wall thickness and systolic function are normal, with an EF greater than 55%. The left ramon tricular size is normal. The right ventricle is normal in size. The left atrial size is normal. The right atrial size is normal. The aortic valve is trileaflet, and appears structurally normal. No aortic stenosis or regurgitation. Mild mitral regurgitation is present. Mild tricuspid regurgitation present. Right ventricular systolic pressure is normal at < 35 mmHg. There is no pulmonic regurgitation present. There is no pericardial effusion. CONCLUSIONS -------- 1. LV size, wall thickness and systolic function are normal, with an EF greater than 55%. 2. The left ventricular size is normal. 3. The right ventricle is normal in size. 4. The left atrial size is normal. 5. The right atrial size is normal. 6. The aortic valve is trileaflet, and appears structurally normal. No aortic stenosis or regurgitati on. 7. Mild mitral regurgitation is present. 8. Mild tricuspid regurgitation present. 9. There is no pericardial effusion. C ENGINEER: Britni Chaudhry RDCS
[2021-02-14 11:11] LABS: Basophils # (A) 0.02 X 10*3/uL (0.00-0.10); Basophils % (A) 0.1 %; Eosinophils # (A) 0 X 10*3/uL (0.04-0.35); Eosinophils % (A) 0 %; HCT 29.2 % (37.2-46.3); HGB 9.4 g/dL (12.0-15.0); Lymphocytes % (A) 4.6 %; MCH 26.2 pg (27.0-32.0); MCHC 32.2 g/dL (32.0-37.0); MCV 81.3 fL (80.0-97.0); Mean Platelet Volume 10.2 fL (9.5-12.2); Monocytes # (A) 0.45 X 10*3/uL (0.20-1.00); Monocytes % (A) 2.6 %; Neutrophils # (A) 16.05 X 10*3/uL (1.80-7.70); Platelet Count 472 X 10*3/uL (140-440); RBC 3.59 X 10*6/uL (4.10-5.20); RDW 14.9 % (11.5-14.5); WBC 17.44 X 10*3/uL (4.50-10.00)
[2021-02-14 11:21] LABS: Glucose,Whole Blood 218 mg/dL (75-99)
--- NOTE | 2021-02-14 11:32 | P.PN ---
Subjective Progress Note Date: 02/14/21 Hospital course: Patient is a 61-year-old female with a past medical history of insulin-dependent diabetes mellitus. She presented to the hospital on 01/31/21 with a chief complaint of left foot infection. She was found to have significant leukocytosis with WBC count of 25.2. X-ray left foot revealing mild soft tissue swelling calcaneal spurring no acute bony abnormality with no signs of osteomyelitis. CT left foot revealing prominent generalized soft tissue swelling with no discrete abscess identified. She underwent debridement, I and D and third toe amputation by Dr. Hammonds on 02/06/21. She was receiving IV antibiotic vancomycin, her wound cultures came back positive for Staphylococcus aureus and antibiotic changed to cefazolin. On 02/09/21 patient was discovered to have petechiae rash covering lower extremities and trunk along with lab findings indicative of acute kidney injury with BUN of 50.0, creatinine of 2.1, and GFR of 25.1 which was significantly elevated from baseline creatinine of 0.7. Patient received IV hydration with no improvement and on 02/10/21 renal functioning worsening with IV hydration with BUN of 62, creatinine 2.60, and GFR of 19. Nephrology was consulted and renal ultrasound was completed showing no suspicious acute changes reported with right kidney described as appearing enlarged and collecting systems slightly dilated and left kidney also enlarged with isoechoic area 2.2 x 2.8 x 2.3 cm. On the evening of 02/10/21 received called to bedside with patient's reports of sudden onset shortness of breath and chest pain. With THIEN, petechiae rash, chest pain, and new onset shortness of breath, this was concerning for ALLERGIC interstitial nephritis, cephalexin was discontinued and patient given Solu-Medrol 125 mg IVP, Benadryl 50 mg IVP, and Pepcid 20 mg IVP at this time. Cardiac workup then completed which was negative for acute abnormalities. ABG revealed compensated metabolic acidosis with pH of 7.410, pCO2 of 30.9, and PaO2 of 62.2 with a bicarb of 19.6. D-dimer elevated at 6.02. Patient placed on heparin infusion, with V/Q scan and Dopplers to be completed. Bilateral lower extremity Dopplers were negative for DVT and VQ scan showing low probability lung VQ scan. Heparin infusion was discontinued. Patient's condition improved by morning, patient states chest pain and shortness of breath subsided. However she continued to have worsening renal function with BUN of 69, creatinine 2.66, and GFR of 19. Nephrology evaluated patient and at this time they decided to hold off on administering further steroids. Infectious disease evaluated and started patient on daptomycin since discontinuation of cefazolin and current renal function. On 02/12/21 patient was found to be in significant respiratory distress with complaints of generalized body aches and pains, chills, and had elevated temp of 100.5F. Patient was swabbed for Covid 19 virus which was negative. Consult placed to pulmonology. A repeat chest x-ray was completed showing left effusion with adjacent atelectasis/pneumonia and at this time Zosyn and doxycycline were added to patient's current antibiotic regimen with daptomycin. Throughout the day patient's condition continued to worsen and she went from 2 L O2 via nasal ca nnula 2 requiring 15 L O2 via nonrebreather. STAT CT chest was completed showing pleural effusions with bilateral extensive pneumonia with atelectasis and lower lobes and paratracheal lymph nodes, findings possibly related to CHF or ARDS. Patient given 125 mg Solu-Medrol IVP and additional labs placed including ANAC and anti-GBM antibodies. Nephrology place patient on prednisone 30 mg twice daily and sodium bicarb tablets 650 mg 4 times daily. Renal function continuing to decline with BUN 88, creatinine of 3.31, and GFR 15. Nephrology has consulted IR for renal biopsy. Plans for renal biopsy to be completed in the next 24-48 hours. Physical exam: 02/13/21: Patient was seen and fully evaluated at bedside this morning. Patient was sitting up in chair this morning and remains on high flow nasal cannula/ airvo with FiO2 of 50% maintaining oxygen saturations at 95%. Patient reports that she is feeling slightly better. She denies having any chest pain. She continues with shortness of breath significantly increasing with exertion. Awaiting morning labs to result. Plan is for renal biopsy to be completed in the next 24-48 hours. Patient remains on bicarbonate infusion at 50 mEq per hour. Repeat urine positive for protein, blood, and 45 RBCs. Awaiting results for Legionella, hepatitis panel, CANCA, anti-GBM, angiotensin 1, KRANTHI with reflex to titer, and HIV. Patient's vital signs stable. She denies having any headache, lightheadedness, dizziness, changes in vision or hearing, chest pain or palpitations, nausea or vomiting, or experiencing any numbness/tingling/weakness in her extremities. Petechiae rash to lower extremities, abdomen, chest, and back continues to improve. Nephrology, pulmonology, vascular surgery, and infectious disease following. Vital signs reviewed and stable. General: Nontoxic, no distress and appears stated age. Derm: Skin warm and dry, normal coloration for ethnicity. Petechiae rash to legs, abdomen, chest, and back improving. Head: Atraumatic, normocephalic and symmetric. Eyes: EOMs intact, no lid lag, and anicteric sclera. Mouth: no lip lesions, mucus membranes moist. Cardiovascular: regular rate and rhythm with normal S1S2, no murmur, positive posterior tibial pulses bilaterally, and cap refill < 2 seconds. Lungs: Respirations even, regular, and unlabored on room air. Lungs CTA bilaterally, no rhonchi, no rales, no wheezing, and no accessory muscle usage. Abdominal: soft, nontender to palpation, no guarding, no appreciable organomegaly Ext: ROM intact. No gross muscle atrophy, no edema, no contractures. Left foot postsurgical dressing intact. Neuro: Speech clear, face symmetrical and CN II-XII grossly intact with no noted focal neuro deficits. Psych: Alert and oriented to person, place, time, and situation. Appropriate and pleasant affect. Assessment and Plan of Care: Acute kidney injury, worsening Hyperkalemia Hypocalcemia Compensated Metabolic acidosis -Worsening renal function with BUN of 88, creatinine 3.31, and GFR of 15. -Renal and bladder ultrasound negative for abnormalities. -Urinalysis negative for infection. -Urine eosinophils negative -Urine protein to creatinine ratio normal findings. Urine protein and urine creatinine normal findings. -Nephrology following with patient prednisone 30 mg twice daily for treatment of possible interstitial nephritis and sodium bicarb tablets 650 mg 4 times daily.. -ANAC and anti-GBM antibodies pending -Nephrology considering possible biopsy in the next 24-48 hours if no improvement in creatinine and pending results of ANCA. -Avoid nephrotoxic medications. -Hyperkalemia and hypocalcemia treated, we'll continue to monitor with repeat a.m. labs. -Bicarb infusion along for treatment of compensated metabolic acidosis with current bicarb of 16. Acute respiratory failure with hypoxia Extensive Bilateral Pneumonia Elevated d-dimer accompanied by chest pain and shortness of breath, PE and DVT ruled out -CT chest was completed showing pleural effusions with bilateral extensive pneumonia with atelectasis and lower lobes and paratracheal lymph nodes, findings possibly related to CHF or ARDS. -COVID PCR negative -CXR revealing LLL pneumonia. -Additional antibiotics added at this time: Zosyn and doxycycline -D-dimer is 6.04. -Heparin infusion initiated and VQ scan completed. VQ scan was negative, heparin infusion discontinued. -Bilateral lower extremity Dopplers completed negative for DVTs. -Pulmonology following, appreciate recommendations Cellulitis of the left foot with an infected puncture wound to the plantar asp ect of the third toe, currently status post debridement, I&D and third toe amputation by Dr. Hammonds on 02/06/21 Severe sepsis without septic shock -Treated with aggressive IV fluid hydration and antibiotics. -Lactic acid was normal. -Blood culture negative, showing no growth after 144 hours. -Wound cultures positive for staph aureus -Infectious disease and vascular surgery following -IV antibiotics: Daptomycin, doxycycline, and Zosyn at this time Severe frontal headache, now resolved. -Computed tomography scan in the ER showed no acute findings negative for acute intercranial process. Type 2 diabetes insulin-dependent diabetes mellitus -Hold Glucophage and placed on glycemic protocol with sliding scale. -Levemir increased to 10 units twice daily secondary to hyperglycemia likely resulting from steroid use. -Hemoglobin A1c 8.1%. -Heart healthy and carb consistent diet. CODE STATUS: Full code DVT prophylaxis: SCDs Discussed with: Patient, patient's and RN Anticipated discharge date: Clinical course to determine Anticipated discharge place: Home A total of 45 minutes was spent on the care of this complex patient more than 50% of the time was spent in counseling and care coordination. Objective - Vital Signs Vital signs: Vital Signs Temp 97.6 F 02/14/21 08:03 Pulse 72 02/14/21 08:03 Resp 18 02/14/21 08:03 BP 150/78 02/14/21 08:03 Pulse Ox 97 02/14/21 08:03 Intake & Output 02/13/21 02/14/21 02/14/21 18:59 06:59 18:59 Intake Total 600 Output Total 550 Balance 50 Intake: Oral 600 Output: Urine 550 Other: Voiding Method Toilet Indwelling Catheter # Voids 3 # Bowel Movements 1 - Labs CBC & Chem 7: 02/14/21 06:27 02/13/21 06:18 Labs: Abnormal Lab Results - Last 24 Hours (Table) 02/10/21 02/13/21 02/13/21 Range/Units 05:15 06:18 11:30 ESR 99 H (0-20) mm/hr POC Glucose (mg/dL) 328 H (75-99) mg/dL Urine Appearance (Clear) Urine Protein (Negative) Urine Blood (Negative) Urine RBC (0-5) /hpf Urine WBC (0-5) /hpf Amorphous Sediment (None) /hpf Urine Bacteria (None) /hpf Urine Mucus (None) /hpf HSV I IgG Ab 7.44 H (< or = 0.90) HSV II IgG 15.20 H (< or = 0.90) 02/13/21 02/13/21 02/14/21 Range/Units 16:22 20:48 06:45 ESR (0-20) mm/hr POC Glucose (mg/dL) 381 H 279 H (75-99) mg/dL Urine Appearance Cloudy H (Clear) Urine Protein 3+ H (Negative) Urine Blood Moderate H (Negative) Urine RBC 45 H (0-5) /hpf Urine WBC 6 H (0-5) /hpf Amorphous Sediment Few H (None) /hpf Urine Bacteria Rare H (None) /hpf Urine Mucus Rare H (None) /hpf HSV I IgG Ab (< or = 0.90) HSV II IgG (< or = 0.90) 02/14/21 Range/Units 06:50 ESR (0-20) mm/hr POC Glucose (mg/dL) 247 H (75-99) mg/dL Urine Appearance (Clear) Urine Protein (Negative) Urine Blood (Negative) Urine RBC (0-5) /hpf Urine WBC (0-5) /hpf Amorphous Sediment (None) /hpf Urine Bacteria (None) /hpf Urine Mucus (None) /hpf HSV I IgG Ab (< or = 0.90) HSV II IgG (< or = 0.90) Microbiology - Last 24 Hours (Table) 02/12/21 12:28 Nasal Screen MRSA/MSSA - Final Nasal Swab 02/12/21 16:35 Blood Culture - Preliminary Blood No Growth after 24 hours 02/12/21 16:35 Blood Culture - Preliminary Blood No Growth after 24 hours
[2021-02-14 12:35] LABS: African American GFR (CKD) 19.7 (60.0-200.0); Albumin/Globulin Ratio 0.97 (1.60-3.17); Anion Gap 11.5 mmol/L (4.00-12.00); BUN/Creat Ratio 33.45 Ratio (12.00-20.00); Calcium 7.6 mg/dL (8.7-10.3); Carbon Dioxide 20.5 mmol/L (21.6-31.8); Globulin 3.1 g/dL (1.6-3.3); Potassium 5.1 mmol/L (3.5-5.5); Total Bilirubin 0.3 mg/dL (0.2-1.2); Total Protein 6.1 g/dL (6.2-8.2)
--- NOTE | 2021-02-14 13:11 | P.PN ---
Subjective Progress Note Date: 02/14/21 61-year-old who presented to the emergency department on January 31, with headache, possible seizure, and also possible infection to the left foot. The patient had apparently not been feeling well for about 3-4 days prior to admission. She had a right-sided occipital headache. In addition, she apparently stepped on a stick in the yard, and developed some redness and drainage from the left foot. In addition, the patient apparently had a low- grade fever. The patient does have a history of diabetes mellitus. She recently moved to [place], from [place]. She has no doctor in this area. Anyway, over the last few days, she's been complaining of shortness of breath. Her oxygen requirements have been going up, and a chest x-ray showed bilateral infiltrates and possibly effusions, as well as a computed tomography scan showing bilateral pleural effusions, and bibasilar infiltrates and atelectasis, left greater than right. For that reason, we were consulted. The patient was on AIRVO at 45 L/m with an FiO2 of 56%. She did not appear to be particularly short of breath. The patient did state that since being on the AIRVO, she has felt better. She does have a cough, which is nonproductive. She denies any chest pain or chest discomfort. She also denies any fever or chills. Her chest x-ray and CAT scan are reviewed. White count 10.5, hemoglobin 9.9, hematocrit 30.8, and platelet count 411,000. Sed rate is 99. Sodium 134, potassium 5.4, chlorides 107, CO2 16, anion gap 11, BUN 88, and creatinine 3.31. Calcium 7.9, phosphorus 7.2. Venous Dopplers of the bilateral lower extremities were negative for DVT. A perfusion lung scan was low probability for PE. A chest x- ray done on the fifth, showed bilateral basilar infiltrates, left greater than right, with more dense consolidation in the left lower lobe. CAT scan of the chest showed bilateral pleural effusions, with extensive bilateral pneumonia and lower lobe atelectasis. COVID testing was negative, and the pro-calcitonin level was a bit elevated at 0.36. The patient is seen today 02/14/2021 in follow-up on the regular medical floor. She is currently sitting up in a chair at the bedside. Awake, alert in no acute distress. She states she is breathing a little bit better today compared to yesterday. She has been converted from the AirVo high flow oxygen back to 8 L high flow nasal cannula. O2 saturations at 95%. She's afebrile. Hemodynamically stable. Left foot wound cultures positive for MSSA. Follow-up blood cultures revealing no growth. Ultrasound of the chest does reveal a 7.8 cm pocket on the right and a 10.4 cm pocket on the left. Marked for possible thoracentesis. Echocardiogram revealed preserved left ventricular systolic function with ejection fraction 55%. No valvular heart disease. White count 17.4. Hemoglobin 9.4. Sodium 132. Potassium 5.1. Bicarb 20.5. BUN 97. Creatinine 2.9. GFR 17. Glucose 239. Being worked up for possible vasculitis, possible interstitial nephritis. ANCA pending. Possible kidney biopsy today. Remains on D5W with 3 A of bicarb at 50 MLS per hour along with oral bicarb. Antibiotics in the form of Vibramycin, daptomycin, Zosyn. Objective - Vital Signs Vital signs: Vital Signs Temp 97.6 F 02/14/21 08:03 Pulse 72 02/14/21 08:03 Resp 20 02/14/21 11:03 BP 150/78 02/14/21 08:03 Pulse Ox 95 02/14/21 11:03 Intake & Output 02/13/21 02/14/21 02/14/21 18:59 06:59 18:59 Intake Total 600 Output Total 550 Balance 50 Intake: Oral 600 Output: Urine 550 Other: Voiding Method Toilet Indwelling Catheter Indwelling Catheter # Voids 3 # Bowel Movements 1 - Exam GENERAL EXAM: Alert, very pleasant 61-year-old female patient, on 8 L high flow nasal cannula, fairly comfortable in no apparent distress. HEAD: Normocephalic. EYES: Normal reaction of pupils, equal size. NOSE: Clear with pink turbinates. THROAT: No erythema or exudates. NECK: No masses, no JVD. CHEST: No chest wall deformity. LUNGS: Equal air entry with crackles in the bilateral bases, diminished CVS: S1 and S2 normal with no audible murmur, regular rhythm. ABDOMEN: No hepatosplenomegaly, normal bowel sounds, no guarding or rigidity. SPINE: No scoliosis or deformity SKIN: No rashes CENTRAL NERVOUS SYSTEM: No focal deficits, tone is normal in all 4 extremities. EXTREMITIES: Dressing to left foot dry and intact. There is trace peripheral edema. No clubbing, no cyanosis. Peripheral pulses are intact. - Labs CBC & Chem 7: 02/14/21 06:27 02/14/21 06:27 Labs: Abnormal Lab Results - Last 24 Hours (Table) 02/10/21 02/13/21 02/13/21 Range/Units 05:15 16:22 20:48 WBC (4.50-10.00) X 10*3/uL RBC (4.10-5.20) X 10*6/uL Hgb (12.0-15.0) g/dL Hct (37.2-46.3) % MCH (27.0-32.0) pg RDW (11.5-14.5) % Plt Count (140-440) X 10*3/uL Immature Gran # (0.00-0.04) X 10*3/uL Neutrophils # (1.80-7.70) X 10*3/uL Lymphocytes # (0.90-5.00) X 10*3/uL Eosinophils # (0.04-0.35) X 10*3/uL Sodium (135-145) mmol/L Carbon Dioxide (21.6-31.8) mmol/L BUN (9.0-27.0) mg/dL Creatinine (0.6-1.5) mg/dL Est GFR (CKD-EPI)AfAm (60.0-200.0) Est GFR (CKD-EPI)NonAf (60.0-200.0) BUN/Creatinine Ratio (12.00-20.00) Ratio Glucose (70-110) mg/dL POC Glucose (mg/dL) 381 H 279 H (75-99) mg/dL Calcium (8.7-10.3) mg/dL Total Protein (6.2-8.2) g/dL Albumin (3.80-4.90) g/dL Albumin/Globulin Ratio (1.60-3.17) g/dL Urine Appearance (Clear) Urine Protein (Negative) Urine Blood (Negative) Urine RBC (0-5) /hpf Urine WBC (0-5) /hpf Amorphous Sediment (None) /hpf Urine Bacteria (None) /hpf Urine Mucus (None) /hpf HSV I IgG Ab 7.44 H (< or = 0.90) HSV II IgG 15.20 H (< or = 0.90) 02/14/21 02/14/21 02/14/21 Range/Units 06:27 06:27 06:45 WBC 17.44 H (4.50-10.00) X 10*3/uL RBC 3.59 L (4.10-5.20) X 10*6/uL Hgb 9.4 L (12.0-15.0) g/dL Hct 29.2 L (37.2-46.3) % MCH 26.2 L (27.0-32.0) pg RDW 14.9 H (11.5-14.5) % Plt Count 472 H (140-440) X 10*3/uL Immature Gran # 0.12 H (0.00-0.04) X 10*3/uL Neutrophils # 16.05 H (1.80-7.70) X 10*3/uL Lymphocytes # 0.80 L (0.90-5.00) X 10*3/uL Eosinophils # 0 L (0.04-0.35) X 10*3/uL Sodium 132 L (135-145) mmol/L Carbon Dioxide 20.5 L (21.6-31.8) mmol/L BUN 97.0 H (9.0-27.0) mg/dL Creatinine 2.9 H (0.6-1.5) mg/dL Est GFR (CKD-EPI)AfAm 19.7 L (60.0-200.0) Est GFR (CKD-EPI)NonAf 17.0 L (60.0-200.0) BUN/Creatinine Ratio 33.45 H (12.00-20.00) Ratio Glucose 239 H (70-110) mg/dL POC Glucose (mg/dL) (75-99) mg/dL Calcium 7.6 L (8.7-10.3) mg/dL Total Protein 6.1 L (6.2-8.2) g/dL Albumin 3.00 L (3.80-4.90) g/dL Albumin/Globulin Ratio 0.97 L (1.60-3.17) g/dL Urine Appearance Cloudy H (Clear) Urine Protein 3+ H (Negative) Urine Blood Moderate H (Negative) Urine RBC 45 H (0-5) /hpf Urine WBC 6 H (0-5) /hpf Amorphous Sediment Few H (None) /hpf Urine Bacteria Rare H (None) /hpf Urine Mucus Rare H (None) /hpf HSV I IgG Ab (< or = 0.90) HSV II IgG (< or = 0.90) 02/14/21 02/14/21 Range/Units 06:50 11:19 WBC (4.50-10.00) X 10*3/uL RBC (4.10-5.20) X 10*6/uL Hgb (12.0-15.0) g/dL Hct (37.2-46.3) % MCH (27.0-32.0) pg RDW (11.5-14.5) % Plt Count (140-440) X 10*3/uL Immature Gran # (0.00-0.04) X 10*3/uL Neutrophils # (1.80-7.70) X 10*3/uL Lymphocytes # (0.90-5.00) X 10*3/uL Eosinophils # (0.04-0.35) X 10*3/uL Sodium (135-145) mmol/L Carbon Dioxide (21.6-31.8) mmol/L BUN (9.0-27.0) mg/dL Creatinine (0.6-1.5) mg/dL Est GFR (CKD-EPI)AfAm (60.0-200.0) Est GFR (CKD-EPI)NonAf (60.0-200.0) BUN/Creatinine Ratio (12.00-20.00) Ratio Glucose (70-110) mg/dL POC Glucose (mg/dL) 247 H 218 H (75-99) mg/dL Calcium (8.7-10.3) mg/dL Total Protein (6.2-8.2) g/dL Albumin (3.80-4.90) g/dL Albumin/Globulin Ratio (1.60-3.17) g/dL Urine Appearance (Clear) Urine Protein (Negative) Urine Blood (Negative) Urine RBC (0-5) /hpf Urine WBC (0-5) /hpf Amorphous Sediment (None) /hpf Urine Bacteria (None) /hpf Urine Mucus (None) /hpf HSV I IgG Ab (< or = 0.90) HSV II IgG (< or = 0.90) Microbiology - Last 24 Hours (Table) 02/12/21 12:28 Nasal Screen MRSA/MSSA - Final Nasal Swab 02/12/21 16:35 Blood Culture - Preliminary Blood No Growth after 24 hours 02/12/21 16:35 Blood Culture - Preliminary Blood No Growth after 24 hours Assessment and Plan Assessment: 1 Acute hypoxemic respiratory failure, multifactorial, in part related to bilateral pleural effusions, and also, bibasilar pneumonia. 2 Status post puncture wound to the left foot, which has become infected with methicillin sensitive staph aureus. 3 History of diabetes mellitus. 4 Non-anion gap metabolic acidosis, secondary to renal failure. 5 History of acute kidney injury. 6 Mild hyperkalemia. 7 Anemia. Plan: The patient was seen and evaluated by Dr. Motta Ultrasound of the chest reviewed May benefit from thoracentesis Plan is for possible kidney biopsy Vasculitis, interstitial nephritis within the differential ANCA levels pending Currently on Zosyn, daptomycin, doxycycline Remains on prednisone, bicarb We will continue to follow and make further recommendations based on her clinical status I, the cosigning physician, performed a history & physical examination of the patient. Lungs sounds with bilateral crackles in the posterior bases, diminished. Maintaining good O2 saturations in the 90s on 8 L high flow nasal cannula I discussed the assessment and plan of care with my nurse practitioner, Ramila Guillen. I attest to the above note as dictated by her.
--- NOTE | 2021-02-14 14:34 | PN ---
PROGRESS NOTE Patient is seen for followup for acute kidney injury associated with significant acute kidney injury with creatinine going up from 0.7 to 2.1 mg/dL with significant respiratory symptoms as well. There is underlying concern for pulmonary renal syndrome versus acute interstitial nephritis. The patient had developed a rash after the cefazolin. She is currently maintained on steroids. She has also had metabolic acidosis, for which patient was started on IV bicarb. She is also maintained on oral sodium bicarb. Kidney biopsy was scheduled; however, it could not be done as patient was hypoxic. Her oxygen requirements have decreased down from AIRVO to about 7 L nasal cannula. UA has shown 3+ protein with protein/creatinine ratio about 2.1, and there is moderate blood noted as well. So far serologies are pending. KRANTHI and ANCA along with antiglomerular basement membrane antibodies were sent down. C3, C4 will be also ordered. I have discussed with the hospitalist that we do need to proceed with a kidney biopsy along with empiric use of steroids. However, if we are not able to get a biopsy here, patient will need to be transferred to an outside facility. I will give her one dose of IV Lasix and we will continue to diurese the patient and follow up on the serologies that were ordered as well. O/E Pt is awake, comfortable, mild repiratory distress BP 150/89. HR 85/minPt is afebrile Lungs: decreased breath sounds at bases with basal crackles. Heart: S1 and S2 heard, no murmur Abdomen: Soft, obese Ext.: Left foot is dressed. Trace edema noted [employer] exam grossly intact. Moving all 4 extremities. LABS Cr 3.0, serologies pending. Urine eosinophils 0 ASSESSMENT 1. Acute kidney injury secondary to ATN, versus AIN or underlying GN with pulmonary renal syndrome. Awaiting kidney biopsy. Continue with emperic steroids. F/u on serologies. 2. Acute hypoxic respiratory failure; pneumonia versus pulmonary renal syndrome, maintained on steroids and antibiotics. Possible component of fluid overload as well. Add IV Lasix. 3. Metabolic acidosis, status post IV bicarb, currently maintained on oral sodium bicarb as well. I will continue with the oral sodium bicarb. We can discontinue the IV bicarb, since it is not compatible with the other antibiotics, and patient has poor IV access. 4. 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 Underlying diabetic nephropathy with 2+ proteinuria. 6. S/p allergic reaction to antibiotics with rash, now improved. PLAN: Continue with the prednisone. IV Lasix x1. Proceed with kidney biopsy. If unable to perform here, patient will need to be transferred to an outside facility. MMODL / IJN: [id number] / MTDD
[2021-02-14] MEDS ORDERED: FUROSEMIDE 10 MG/ML 10 ML VIAL IV ONE (15:00)
[2021-02-14 16:39] LABS: Glucose,Whole Blood 369 mg/dL (75-99)
[2021-02-14] MEDS: ALBUTEROL NEBULIZED 2.5 MG/3 ML INHALATION PRN (17:19)
[2021-02-14] MEDS: ALPRAZolam 0.5 MG TAB PO PRN (18:14)
[2021-02-14 18:23] LABS: HIV 2 AB Non-Reactive (Non-Reactive); HIV AB P24 Non-Reactive (Non-Reactive); HIV P24 AG Non-Reactive (Non-Reactive)
--- NOTE | 2021-02-14 18:59 | P.PN ---
Progress Note - Text Nursing staff called me to come and evaluate the patient was complaining of odynophagia. Patient told me that she feels that food is getting stuck behind her breast bone. This is worse with meat and chicken as well as breath. She never had similar problems before. I chose the patient diet to dysphagia/soft diet and ordered a barium swallow study for further evaluation.
--- NOTE | 2021-02-14 18:59 | PN ---
PROGRESS NOTE DATE OF SERVICE: 02/14/2021 REASON FOR FOLLOWUP: Left foot abscess and cellulitis. INTERVAL HISTORY: Patient is afebrile. The patient is breathing more comfortably down to 5 L nasal cannula. Denies having any chest pain or cough. No abdominal pain. Still has significant swelling to the lower extremity. Denies any pain to the left foot area. PHYSICAL EXAMINATION: Blood pressure is 152/75 with a pulse of 77, temperature 97.6. She is 92% on 5 L nasal cannula. General description is a middle-aged female lying in bed in no distress. Respiratory system: Unlabored breathing, decreased breath sounds. Heart S1, S2. Regular rate and rhythm. Abdomen soft. Extremities are 2+ edema of the feet. Left foot wound, post amputation of the 3rd toe base did have some slough tissue. No foul- smelling drainage. LABORATORY DATA: Hemoglobin 9.2, white count 15.44, BUN of 97, creatinine is 2.9. DIAGNOSTIC IMPRESSION AND PLAN: Patient with left foot abscess and cellulitis status post amputation of the left third toe and drainage of the abscess, now with evidence of a renal failure. Nephrology working on the patient. The patient to continue with daptomycin. Local care to continue. Can be switched as per discussion with the admitting surgeon. Continue supportive care. at the bedside. Questions were answered. MMODL / IJN: [id number] / MTDD
[2021-02-14 20:44] LABS: Glucose,Whole Blood 269 mg/dL (75-99)
[2021-02-15 06:52] LABS: Glucose,Whole Blood 222 mg/dL (75-99)
[2021-02-15] MEDS: INSULIN DETEMIR (LEVEMIR) 100 UNIT/ML SYR SQ SCH ×2 (07:50→21:28)
[2021-02-15] MEDS: PIPERACILLIN-TAZOBACTAM 3.375 GM in SODIUM CHLORIDE 0.9% 100 ML IVPB SCH ×2 (07:50→20:42)
[2021-02-15] MEDS: INSULIN ASPART (NovoLOG) 100 UNIT/ML VIAL SQ SCH ×7 (07:51→21:29)
[2021-02-15] MEDS: predniSONE 10 MG TAB PO SCH ×2 (07:51→20:42)
[2021-02-15] MEDS: PREGABALIN 75 MG CAP PO SCH ×2 (07:52→20:42)
[2021-02-15] MEDS: ACETAMINOPHEN TAB 325 MG TAB PO PRN (07:52)
[2021-02-15] MEDS: CYANOCOBALAMIN 500 MCG TAB PO SCH (07:52)
[2021-02-15] MEDS: FOLIC ACID 1 MG TAB PO SCH (07:52)
[2021-02-15] MEDS: FAMOTIDINE 20 MG TAB PO SCH (07:53)
[2021-02-15] MEDS: HYDROCORTISONE 1% CREAM 454 GM JAR TOPICAL SCH ×3 (07:53→23:04)
[2021-02-15] MEDS: DOXYCYCLINE 100 MG CAP PO SCH ×2 (07:53→20:42)
[2021-02-15] MEDS: SODIUM BICARBONATE TAB 650 MG TAB PO SCH ×4 (07:53→20:42)
[2021-02-15 09:22] LABS: HCT 27.8 % (37.2-46.3); HGB 9.1 g/dL (12.0-15.0); MCH 26.8 pg (27.0-32.0); MCHC 32.7 g/dL (32.0-37.0); MCV 81.8 fL (80.0-97.0); Mean Platelet Volume 9.9 fL (9.5-12.2); Platelet Count 458 X 10*3/uL (140-440); RDW 15.3 % (11.5-14.5); WBC 11.77 X 10*3/uL (4.50-10.00)
[2021-02-15 10:11] LABS: Anti-Glomerular Basement Memb 2 UNITS (0-20)
--- NOTE | 2021-02-15 10:13 | CT ---
EXAMINATION TYPE: CT discontinued procedure DATE OF EXAM: 02/15/2021 COMPARISON: None HISTORY: Renal biopsy-discontinued CT DLP: 734 mGycm Automated exposure control for dose reduction was used. FINDINGS: Patient's blood pressure is 180/103. The procedure was deferred. Patient's nurse was notified of the elevated blood pressure. Bilateral pleural effusions and airspace disease in the lungs incidentally n oted and have been previously reported. IMPRESSION: DISCONTINUED A RENAL BIOPSY DUE TO HYPERTENSION.
--- NOTE | 2021-02-15 10:39 | PN ---
PROGRESS NOTE This is a 61-year-old female patient with infected gangrene of the third toe with marked cellulitis of the dorsum of the foot. The patient went for ray amputation. The patient did well. Her wound is granulating and we will use Aquacel Silver. The patient had an episode of acute renal failure. The patient is scheduled to have a renal biopsy today. Her creatinine is 2.9. We changed the dressing with Aquacel Silver, which will be changed every 48 hours. MMMARIA RL / IJN: [id number] /
[2021-02-15] MEDS ORDERED: hydrALAZINE HCL 20 MG/ML 1 ML VIAL IVP STA ×2 (10:56→13:07)
[2021-02-15] MEDS ORDERED: FUROSEMIDE 10 MG/ML 10 ML VIAL IV STA (10:56)
--- NOTE | 2021-02-15 11:09 | FL ---
EXAMINATION TYPE: FL barium swallow DATE OF EXAM: 02/15/2021 COMPARISON: None HISTORY: Pain with swallowing TECHNIQUE: Double air contrast technique is utilized to evaluate the esophagus. Thin and thick barium was utilized. Exam is limited with the patient's recent foot surgery she was unable to stand well an d positioning on the table was limited. FINDINGS: The esophagus dilates to normal caliber and has normal contour of the gastroesophageal junc tion. Gastroesophageal junction opens to normal caliber. A few tertiary contractions may be present d uring the exam compatible with presbyesophagus. No intraluminal or extramural defects are evident. Devonte gómez did report symptoms of sticking within the upper esophagus during the exam low no abnormality w as identified. Fluoroscopy time: 36 seconds. Images: 10 IMPRESSION: 1. Very mild presbyesophagus. 2. There is some limitation due to patient condition at the time of the exam
[2021-02-15 11:24] LABS: Glucose,Whole Blood 272 mg/dL (75-99)
[2021-02-15 12:53] LABS: African American GFR (CKD) 18.9 (60.0-200.0); Anion Gap 9.4 mmol/L (4.00-12.00); BUN/Creat Ratio 34.67 Ratio (12.00-20.00); Calcium 7.5 mg/dL (8.7-10.3); Carbon Dioxide 21.6 mmol/L (21.6-31.8); Magnesium 2.1 mg/dL (1.5-2.4); Non-African American GFR(CKD) 16.3 (60.0-200.0); Potassium 6.2 mmol/L (3.5-5.5)
[2021-02-15] MEDS ORDERED: INSULIN REGULAR 100 UNIT/ML VIAL (IV) IV ONE ×2 (13:21→21:15)
[2021-02-15] MEDS: DAPTOmycin 500 MG in SODIUM CHLORIDE 0.9% 50 ML IVPB SCH (13:34)
[2021-02-15 13:37] LABS: C-ANCA <1:20 Titer (<1:20)
[2021-02-15] MEDS ORDERED: CALCIUM GLUCONATE 1 GM in SODIUM CHLORIDE 0.9% 100 ML IVPB ONE (13:45)
--- NOTE | 2021-02-15 13:46 | P.PN ---
Subjective Progress Note Date: 02/15/21 Principal diagnosis: Hospital course: Patient is a 61-year-old female with a past medical history of insulin-dependent diabetes mellitus. She presented to the hospital on 01/31/21 with a chief complaint of left foot infection. She was found to have significant leukocytosis with WBC count of 25.2. X-ray left foot revealing mild soft tissue swelling calcaneal spurring no acute bony abnormality with no signs of osteomyelitis. CT left foot revealing prominent generalized soft tissue swelling with no discrete abscess identified. She underwent debridement, I and D and third toe amputation by Dr. Hammonds on 02/06/21. She was receiving IV antibiotic vancomycin, her wound cultures came back positive for Staphylococcus aureus and antibiotic changed to cefazolin. On 02/09/21 patient was discovered to have petechiae rash covering lower extremities and trunk along with lab findings indicative of acute kidney injury with BUN of 50.0, creatinine of 2.1, and GFR of 25.1 which was significantly elevated from baseline creatinine of 0.7. Patient received IV hydration with no improvement and on 02/10/21 renal functioning worsening with IV hydration with BUN of 62, creatinine 2.60, and GFR of 19. Nephrology was consulted and renal ultrasound was completed showing no suspicious acute changes reported with right kidney described as appearing enlarged and collecting systems slightly dilated and left kidney also enlarged with isoechoic area 2.2 x 2.8 x 2.3 cm. On the evening of 02/10/21 received called to bedside with patient's reports of sudden onset shortness of breath and chest pain. With THIEN, petechiae rash, chest pain, and new onset shortness of breath, this was concerning for ALLERGIC interstitial nephritis, cephalexin was discontinued and patient given Solu-Medrol 125 mg IVP, Benadryl 50 mg IVP, and Pepcid 20 mg IVP at this time. Cardiac workup then completed which was negative for acute abnormalities. ABG revealed compensated metabolic acidosis with pH of 7.410, pCO2 of 30.9, and PaO2 of 62.2 with a bicarb of 19.6. D-dimer elevated at 6.02. Patient placed on heparin infusion, with V/Q scan and Dopplers to be completed. Bilateral lower extremity Dopplers were negative for DVT and VQ scan showing low probability lung VQ scan. Heparin infusion was discontinued. Patient's condition improved by morning, patient states chest pain and shortness of breath subsided. However she continued to have worsening renal function with BUN of 69, creatinine 2.66, and GFR of 19. Nephrology evaluated patient and at this time they decided to hold off on administering further steroids. Infectious disease evaluated and started patient on daptomycin since discontinuation of cefazolin and current renal function. On 02/12/21 patient was found to be in significant respiratory distress with complaints of generalized body aches and pains, chills, and had elevated temp of 100.5F. Patient was swabbed for Covid 19 virus which was negative. Consult placed to pulmonology. A repeat chest x-ray was completed showing left effusion with adjacent atelectasis/pneumonia and at this time Zosyn and doxycycline were added to patient's current antibiotic regimen with daptomycin. Throughout the day patient's condition continued to worsen and she went from 2 L O2 via nasal cannula 2 requiring 15 L O2 via nonrebreather. STAT CT chest was completed showing pleural effusions with bilateral extensive pneumonia with atelectasis and lower lobes and paratracheal lymph nodes, findings possibly related to CHF or ARDS. Patient given 125 mg Solu-Medrol IVP and additional labs placed including ANAC and anti-GBM antibodies. Nephrology place patient on prednisone 30 mg twice daily and sodium bicarb tablets 650 mg 4 times daily. Renal function continuing to decline with BUN 88, creatinine of 3.31, and GFR 15. Nephrology has consulted IR for renal biopsy. Plans for renal biopsy to be completed in the next 24-48 hours. Subjective: Patient feels okay, no chest pain no abdominal pain no nausea no vomiting no dizziness no shortness of breath. Remains afebrile. Objective - Vital Signs Vital signs: Vital Signs Temp 96.6 F L 02/15/21 07:24 Pulse 76 02/15/21 09:10 Resp 20 02/15/21 09:10 BP 133/70 02/15/21 12:00 Pulse Ox 95 02/15/21 12:19 Intake & Output 02/14/21 02/15/21 02/15/21 18:59 06:59 18:59 Output Total 1225 950 Balance -1225 -950 Output: Urine 1225 950 Other: Voiding Method Indwelling Catheter Indwelling Catheter Indwelling Catheter - Exam General: Nontoxic, no distress and appears stated age. Derm: Skin warm and dry, normal coloration for ethnicity. Petechiae rash to legs, abdomen, chest, and back better Head: Atraumatic, normocephalic and symmetric. Eyes: EOMs intact, no lid lag, and anicteric sclera. Mouth: no lip lesions, mucus membranes moist. Cardiovascular: regular rate and rhythm with normal S1S2, no murmur, positive posterior tibial pulses bilaterally, and cap refill < 2 seconds. Lungs: Respirations even, regular, and unlabored on room air. Lungs CTA bilaterally, no rhonchi, no rales, no wheezing, and no accessory muscle usage. Abdominal: soft, nontender to palpation, no guarding, no appreciable organomegaly Ext: ROM intact. No gross muscle atrophy, no edema, no contractures. Left foot postsurgical dressing intact. Neuro: Speech clear, face symmetrical and CN II-XII grossly intact with no noted focal neuro deficits. Psych: Alert and oriented to person, place, time, and situation. Appropriate and pleasant affect. - Labs CBC & Chem 7: 02/15/21 06:08 02/15/21 06:08 Labs: Abnormal Lab Results - Last 24 Hours (Table) 02/12/21 02/14/21 02/14/21 Range/Units 19:34 16:37 20:42 WBC (4.50-10.00) X 10*3/uL RBC (4.10-5.20) X 10*6/uL Hgb (12.0-15.0) g/dL Hct (37.2-46.3) % MCH (27.0-32.0) pg RDW (11.5-14.5) % Plt Count (140-440) X 10*3/uL Sodium (135-145) mmol/L Potassium (3.5-5.5) mmol/L BUN (9.0-27.0) mg/dL Creatinine (0.6-1.5) mg/dL Est GFR (CKD-EPI)AfAm (60.0-200.0) Est GFR (CKD-EPI)NonAf (60.0-200.0) BUN/Creatinine Ratio (12.00-20.00) Ratio Glucose (70-110) mg/dL POC Glucose (mg/dL) 369 H 269 H (75-99) mg/dL Calcium (8.7-10.3) mg/dL KRANTHI Screen POSITIVE A (NEGATIVE) 02/15/21 02/15/21 02/15/21 Range/Units 06:08 06:08 06:51 WBC 11.77 H (4.50-10.00) X 10*3/uL RBC 3.40 L (4.10-5.20) X 10*6/uL Hgb 9.1 L (12.0-15.0) g/dL Hct 27.8 L (37.2-46.3) % MCH 26.8 L (27.0-32.0) pg RDW 15.3 H (11.5-14.5) % Plt Count 458 H (140-440) X 10*3/uL Sodium 133 L (135-145) mmol/L Potassium 6.2 H* (3.5-5.5) mmol/L BUN 104.0 H* (9.0-27.0) mg/dL Creatinine 3.0 H (0.6-1.5) mg/dL Est GFR (CKD-EPI)AfAm 18.9 L (60.0-200.0) Est GFR (CKD-EPI)NonAf 16.3 L (60.0-200.0) BUN/Creatinine Ratio 34.67 H (12.00-20.00) Ratio Glucose 200 H (70-110) mg/dL POC Glucose (mg/dL) 222 H (75-99) mg/dL Calcium 7.5 L (8.7-10.3) mg/dL KRANTHI Screen (NEGATIVE) 02/15/21 Range/Units 11:23 WBC (4.50-10.00) X 10*3/uL RBC (4.10-5.20) X 10*6/uL Hgb (12.0-15.0) g/dL Hct (37.2-46.3) % MCH (27.0-32.0) pg RDW (11.5-14.5) % Plt Count (140-440) X 10*3/uL Sodium (135-145) mmol/L Potassium (3.5-5.5) mmol/L BUN (9.0-27.0) mg/dL Creatinine (0.6-1.5) mg/dL Est GFR (CKD-EPI)AfAm (60.0-200.0) Est GFR (CKD-EPI)NonAf (60.0-200.0) BUN/Creatinine Ratio (12.00-20.00) Ratio Glucose (70-110) mg/dL POC Glucose (mg/dL) 272 H (75-99) mg/dL Calcium (8.7-10.3) mg/dL KRANTHI Screen (NEGATIVE) Microbiology - Last 24 Hours (Table) 02/12/21 16:35 Blood Culture - Preliminary Blood No Growth after 48 hours 02/12/21 16:35 Blood Culture - Preliminary Blood No Growth after 48 hours Assessment and Plan Plan: Acute kidney injury, worsening Hyperkalemia Hypocalcemia Compensated Metabolic acidosis -Worsening renal function with BUN of 88, creatinine 3.31 at its peak 11/27/2020 currently improved to 2.9 yesterday and now 3. -Renal and bladder ultrasound negative for abnormalities. -Urinalysis negative for infection. -Urine eosinophils negative -Urine protein to creatinine ratio normal findings. Urine protein and urine creatinine normal findings. -Nephrology following with patient prednisone 30 mg twice daily for treatment of possible interstitial nephritis and sodium bicarb tablets 650 mg 4 times daily.. -ANAC and anti-GBM antibodies pending KRANTHI positive Unable to perform biopsy here at the facility -Avoid nephrotoxic medications. -Hyperkalemia and hypocalcemia Metabolic acidosis secondary to acute kidney injury: Resolved, continue oral bicarbonate Acute respiratory failure with hypoxia Extensive Bilateral Pneumonia Elevated d-dimer accompanied by chest pain and shortness of breath, PE and DVT ruled out -CT chest was completed showing pleural effusions with bilateral extensive pneumonia with atelectasis and lower lobes and paratracheal lymph nodes, fin dings possibly related to CHF or ARDS. -COVID PCR negative -CXR revealing LLL pneumonia. -Additional antibiotics added at this time: Zosyn and doxycycline -D-dimer is 6.04. -Heparin infusion initiated and VQ scan completed. VQ scan was negative, heparin infusion discontinued. -Bilateral lower extremity Dopplers completed negative for DVTs. -Pulmonology following, appreciate recommendations Continues to be on 5 L of oxygen Cellulitis of the left foot with an infected puncture wound to the plantar aspect of the third toe, currently status post debridement, I&D and third toe amputation by Dr. Hammonds on 02/06/21 Severe sepsis without septic shock -Treated with aggressive IV fluid hydration and antibiotics. -Lactic acid was normal. -Blood culture negative -Wound cultures positive for staph aureus -Infectious disease and vascular surgery following -IV antibiotics: Daptomycin, doxycycline, and Zosyn at this time Severe frontal headache, now resolved. -Computed tomography scan in the ER showed no acute findings negative for acute intercranial process. Type 2 diabetes insulin-dependent diabetes mellitus -Hold Glucophage and placed on glycemic protocol with sliding scale. -Levemir increased to 10 units twice daily secondary to hyperglycemia likely resulting from steroid use. -Hemoglobin A1c 8.1%. -Heart healthy and carb consistent diet. Disposition: Pending transfer to a higher level of care
[2021-02-15] MEDS: ALPRAZolam 0.5 MG TAB PO PRN (14:27)
[2021-02-15] MEDS: amLODIPine 5 MG TAB PO SCH (15:23)
[2021-02-15] MEDS: ALBUTEROL NEBULIZED 2.5 MG/3 ML INHALATION PRN (16:49)
[2021-02-15 16:51] LABS: Glucose,Whole Blood 221 mg/dL (75-99)
--- NOTE | 2021-02-15 16:53 | P.DS ---
Providers Date of admission: 02/01/21 12:30 Expected date of discharge: 02/15/21 Attending physician: Evelia Bay MD Consults: 02/01/21 03:25 Consult Physician Routine Consulting Provider: Jeff Pleitez Consult Reason/Comments: DM, puncture wound foot, cellulitis Do you want consulting provider notified?: Yes, Notify in am 02/01/21 10:46 Consult Physician Routine Consulting Provider: Kimani Phillips Consult Reason/Comments: Severe persistent headache Do you want consulting provider notified?: Yes 02/06/21 11:02 Consult Physician Routine Consulting Provider: Arnulfo Hammonds Consult Reason/Comments: left foot abscess, i&d Do you want consulting provider notified?: Yes 02/10/21 13:35 Consult Physician Routine Consulting Provider: Mey Mendez Consult Reason/Comments: THIEN Do you want consulting provider notified?: Yes 02/12/21 16:29 Consult Physician Routine Consulting Provider: Chris Corbett Consult Reason/Comments: hypoxia with infiltrate Do you want consulting provider notified?: Yes Primary care physician: Stated None Hospital Course: Patient is a 61-year-old female with a past medical history of insulin-dependent diabetes mellitus. She presented to the hospital on 01/31/21 with a chief complaint of left foot infection. She was found to have significant leukocytosis with WBC count of 25.2. X-ray left foot revealing mild soft tissue swelling calcaneal spurring no acute bony abnormality with no signs of osteomyelitis. CT left foot revealing prominent generalized soft tissue swelling with no discrete abscess identified. She underwent debridement, I and D and third toe amputation by Dr. Hammonds on 02/06/21. She was receiving IV antibiotic vancomycin, her wound cultures came back positive for Staphylococcus aureus and antibiotic changed to cefazolin. On 02/09/21 patient was discovered to have petechiae rash covering lower extremities and trunk along with lab findings indicative of acute kidney injury with BUN of 50.0, creatinine of 2.1, and GFR of 25.1 which was significantly elevated from baseline creatinine of 0.7. Patient received IV hydration with no improvement and on 02/10/21 renal functioning worsening with IV hydration with BUN of 62, creatinine 2.60, and GFR of 19. Nephrology was consulted and renal ultrasound was completed showing no suspicious acute changes reported with right kidney described as appearing enlarged and collecting systems slightly dilated and left kidney also enlarged with isoechoic area 2.2 x 2.8 x 2.3 cm. On the evening of 02/10/21 received called to bedside with patient's reports of sudden onset shortness of breath and chest pain. With THIEN, petechiae rash, chest pain, and new onset shortness of breath, this was concerning for ALLERGIC interstitial nephritis, cephalexin was discontinued and patient given Solu-Medrol 125 mg IVP, Benadryl 50 mg IVP, and Pepcid 20 mg IVP at this time. Cardiac workup then completed which was negative for acute abnormalities. ABG revealed compensated metabolic acidosis with pH of 7.410, pCO2 of 30.9, and PaO2 of 62.2 with a bicarb of 19.6. D-dimer elevated at 6.02. Patient placed on heparin infusion, with V/Q scan and Dopplers to be completed. Bilateral lower extremity Dopplers were negative for DVT and VQ scan showing low probability lung VQ scan. Heparin infusion was discontinued. Patient's condition improved by morning, patient states chest pain and shortness of breath subsided. However she continued to have worsening renal function with BUN of 69, creatinine 2.66, and GFR of 19. Nephrology evaluated patient and at this time they decided to hold off on administering further steroids. Infectious disease evaluated and started patient on daptomycin since discontinuation of cefazolin and current renal function. On 02/12/21 patient was found to be in significant respiratory distress with complaints of generalized body aches and pains, chills, and had elevated temp of 100.5F. Patient was swabbed for Covid 19 virus which was negative. Consult placed to pulmonology. A repeat chest x-ray was completed showing left effusion with adjacent atelectasis/pneumonia and at this time Zosyn and doxycycline were added to patient's current antibiotic regimen with daptomycin. Throughout the day patient's condition continued to worsen and she went from 2 L O2 via nasal cannula 2 requiring 15 L O2 via nonrebreather. STAT CT chest was completed showing pleural effusions with bilateral extensive pneumonia with atelectasis and lower lobes and paratracheal lymph nodes, findings possibly related to CHF or ARDS. Patient given 125 mg Solu-Medrol IVP and additional labs placed including ANAC and anti-GBM antibodies. Nephrology place patient on prednisone 30 mg twice daily and sodium bicarb tablets 650 mg 4 times daily. Renal function continuing to decline with BUN 88, creatinine of 3.31, Nephrology has consulted IR for renal biopsy. Serum creatinine decreased to 2. 93 but remained elevated. Renal biopsy could not be performed on for facility. Plan to transfer patient to [facility] for further evaluation. Patient has been accepted pending bed availability. Patient Condition at Discharge: Fair Plan - Discharge Summary Discharge Rx Participant: No New Discharge Prescriptions: New Insulin Detemir (Levemir) [Levemir] 10 unit SQ DAILY@0700 #1 dispenser Cephalexin [Keflex] 500 mg PO Q6HR 14 Days #56 cap Pregabalin [Lyrica] 75 mg PO BID 30 Days #60 cap Continue Nortriptyline [Pamelor] 50 mg PO HS Linagliptin [Tradjenta] 5 mg PO DAILY DULoxetine HCL [Cymbalta] 30 mg PO DAILY Discontinued Terbinafine HCl [LamISIL] 250 mg PO DAILY Insulin Glargine [Lantus Vial] 85 unit SQ HS Discharge Medication List DULoxetine HCL [Cymbalta] 30 mg PO DAILY 02/09/21 [History] Linagliptin [Tradjenta] 5 mg PO DAILY 02/09/21 [History] Nortriptyline [Pamelor] 50 mg PO HS 02/09/21 [History] Cephalexin [Keflex] 500 mg PO Q6HR 14 Days #56 cap 02/10/21 [Rx] Insulin Detemir (Levemir) [Levemir] 10 unit SQ DAILY@0700 #1 dispenser 02/10/21 [Rx] Pregabalin [Lyrica] 75 mg PO BID 30 Days #60 cap 02/10/21 [Rx] Follow up Appointment(s)/Ref[facility] - 1 Week Arnulfo Hammonds MD [STAFF PHYSICIAN] - 1 Week Jeff Pleitez MD [STAFF PHYSICIAN] - 1 Week Activity/Diet/Wound Care/Special Instructions: Activity: As tolerated. Take breaks as needed. Diet: Heart healthy and carb consistent diet. Avoid salts, or foods with hidden salts such as canned or boxed foods and frozen dinners. Extra salt makes your heart work harder and traps the fluid in your body for longer. Special Instructions: Take all of your medications as directed and remember to keep all of your doctor's appointments and follow-up as needed. It is very important to take the antibiotics as prescribed without missing any doses and complete entire course. Thank you for allowing us to participate in your care, it was truly a pleasure having you for our patient!!! Discharge Disposition: OTHER INSTITUTION NOT DEFINED
--- NOTE | 2021-02-15 17:17 | PN ---
PROGRESS NOTE Patient is seen for followup for acute kidney injury. This morning patient went down for her kidney biopsy and it could not be performed as her blood pressure was elevated. The patient's blood pressure was 173/100, previously she had been about 154 systolic. There was a component of anxiety as well. The patient came back to the floor, she was given 10 mg of hydralazine IV and her blood pressure had come down to around 133/70. She was taken back to the radiology department, but in the meantime, her labs came back and potassium was elevated at 6.2, and therefore the procedure was held again. The patient's respiratory status is better. Her O2 sats are about 95% on 5 L nasal cannula. The patient has had good urine output. She has an indwelling catheter. 24 hour output noted to be about 2.1 L. PHYSICAL EXAMINATION: On examination today, blood pressure 151/76, heart rate 79 per minute. Patient is afebrile. Examination of the heart S1, S2. Examination of the lungs, decreased breath sounds at the bases. Occasional crackles are heard. Abdomen is soft, nontender. Examination of lower extremities shows trace edema. Left foot is wrapped. [employer] exam grossly intact. LAB: Show sodium 133, potassium 6.2, chloride 102, BUN 104, serum creatinine 3.0. ASSESSMENT: 1. Acute kidney injury, acute tubular necrosis versus acute interstitial nephritis. Rule out other GN. The patient's KRANTHI did come out to be positive. ANCA and glomerular abasement membrane antibodies are negative. Hep C PCR not detected. Currently patient is maintained on IV steroids which I will continue until results of the kidney biopsy are obtained. The patient is nonoliguric and has responded well to diuresis. 2. Volume overload currently improved. We will maintain patient on scheduled dose of Lasix IV. 3. Acute hypoxic respiratory failure secondary to possible pneumonia versus pulmonary renal syndrome versus some element of congestive heart failure. Continue with the diuresis for now along with empiric antibiotics and p.o. steroids. We will wait for the kidney biopsy. Serologies are negative except for KRANTHI. 4. Metabolic acidosis, improved. Currently maintained on oral sodium bicarb. 5. Hyperkalemia associated with acute kidney injury expect improvement as patient has received IV Lasix. Her blood sugars are also running high. We will treat with IV insulin. 6. Disproportionately elevated BUN secondary to steroids. 7. Hypertension partly volume sensitive. We will maintain patient on calcium channel blockers if blood pressure remains elevated. There is also a component of anxiety. I will increase the Norvasc to 5 mg b.i.d. if she remains hypertensive. PLAN Add Norvasc, maintain scheduled dose of Lasix. Repeat potassium in 4 hours time and consider transfer to an outside facility versus attempting to biopsy again tomorrow. I will give her a dose of DDAVP as well prior to the biopsy if the patient is still here. MMODL / IJN: [id number] / MTDD
--- NOTE | 2021-02-15 17:48 | P.PN ---
Subjective Progress Note Date: 02/15/21 Principal diagnosis: On 02/15/2021 patient seen in follow-up on medical surgical floor. She is awake, in no acute distress. She is currently on 4 L of oxygen, her pulse ox is 95%, afebrile. Continues on doxycycline and Zosyn. Cultures have shown no growth thus far, wound from the third left toe was positive for MSSA. Patient remains on oral prednisone for possibility of acute interstitial nephritis. The kidney biopsy was performed today. Patient is nonoliguric. Overall her fluid volume overload improved with diuretics. She is breathing comfortably, she is not producing any phlegm. Denies any chest discomfort. Patient continues on Norvasc, and she has required calcium channel blockers for blood pressure control in addition to hydralazine. The blood pressure is improved. IV steroids have been transitioned to oral prednisone. Objective - Vital Signs Vital signs: Vital Signs Temp 97.6 F 02/15/21 13:00 Pulse 84 02/15/21 17:07 Resp 18 02/15/21 13:00 BP 151/76 02/15/21 13:00 Pulse Ox 95 02/15/21 13:00 Intake & Output 02/14/21 02/15/21 02/15/21 18:59 06:59 18:59 Output Total 1225 950 Balance -1225 -950 Output: Urine 1225 950 Other: Voiding Method Indwelling Catheter Indwelling Catheter Indwelling Catheter - Exam GENERAL EXAM: Alert, very pleasant, 61-year-old female, 5 L of oxygen and the pulse ox 94%, breathing comfortably, comfortable in no apparent distress. HEAD: Normocephalic/atraumatic. EYES: Normal reaction of pupils, equal size. Conjunctiva pink, sclera white. NOSE: Clear with pink turbinates. THROAT: No erythema or exudates. NECK: No masses, no JVD, no thyroid enlargement, no adenopathy. CHEST: No chest wall deformity. Symmetrical expansion. LUNGS: Equal air entry with no crackles, wheeze, rhonchi or dullness. CVS: Regular rate and rhythm, normal S1 and S2, no gallops, no murmurs, no rubs ABDOMEN: Soft, nontender. No hepatosplenomegaly, normal bowel sounds, no g uarding or rigidity. EXTREMITIES: No clubbing, no edema, no cyanosis, 2+ pulses and upper and lower extremities. MUSCULOSKELETAL: Muscle strength and tone normal. SPINE: No scoliosis or deformity SKIN: No rashes CENTRAL NERVOUS SYSTEM: Alert and oriented -3. No focal deficits, tone is normal in all 4 extremities. PSYCHIATRIC: Alert and oriented -3. Appropriate affect. Intact judgment and insight. - Labs CBC & Chem 7: 02/15/21 06:08 02/15/21 17:08 Labs: Abnormal Lab Results - Last 24 Hours (Table) 02/12/21 02/14/21 02/15/21 Range/Units 19:34 20:42 06:08 WBC 11.77 H (4.50-10.00) X 10*3/uL RBC 3.40 L (4.10-5.20) X 10*6/uL Hgb 9.1 L (12.0-15.0) g/dL Hct 27.8 L (37.2-46.3) % MCH 26.8 L (27.0-32.0) pg RDW 15.3 H (11.5-14.5) % Plt Count 458 H (140-440) X 10*3/uL Sodium (135-145) mmol/L Potassium (3.5-5.5) mmol/L BUN (9.0-27.0) mg/dL Creatinine (0.6-1.5) mg/dL Est GFR (CKD-EPI)AfAm (60.0-200.0) Est GFR (CKD-EPI)NonAf (60.0-200.0) BUN/Creatinine Ratio (12.00-20.00) Ratio Glucose (70-110) mg/dL POC Glucose (mg/dL) 269 H (75-99) mg/dL Calcium (8.7-10.3) mg/dL KRANTHI Screen POSITIVE A (NEGATIVE) 02/15/21 02/15/21 02/15/21 Range/Units 06:08 06:51 11:23 WBC (4.50-10.00) X 10*3/uL RBC (4.10-5.20) X 10*6/uL Hgb (12.0-15.0) g/dL Hct (37.2-46.3) % MCH (27.0-32.0) pg RDW (11.5-14.5) % Plt Count (140-440) X 10*3/uL Sodium 133 L (135-145) mmol/L Potassium 6.2 H* (3.5-5.5) mmol/L BUN 104.0 H* (9.0-27.0) mg/dL Creatinine 3.0 H (0.6-1.5) mg/dL Est GFR (CKD-EPI)AfAm 18.9 L (60.0-200.0) Est GFR (CKD-EPI)NonAf 16.3 L (60.0-200.0) BUN/Creatinine Ratio 34.67 H (12.00-20.00) Ratio Glucose 200 H (70-110) mg/dL POC Glucose (mg/dL) 222 H 272 H (75-99) mg/dL Calcium 7.5 L (8.7-10.3) mg/dL KRANTHI Screen (NEGATIVE) 02/15/21 02/15/21 Range/Units 16:49 17:08 WBC (4.50-10.00) X 10*3/uL RBC (4.10-5.20) X 10*6/uL Hgb (12.0-15.0) g/dL Hct (37.2-46.3) % MCH (27.0-32.0) pg RDW (11.5-14.5) % Plt Count (140-440) X 10*3/uL Sodium (135-145) mmol/L Potassium 5.7 H (3.5-5.5) mmol/L BUN (9.0-27.0) mg/dL Creatinine (0.6-1.5) mg/dL Est GFR (CKD-EPI)AfAm (60.0-200.0) Est GFR (CKD-EPI)NonAf (60.0-200.0) BUN/Creatinine Ratio (12.00-20.00) Ratio Glucose (70-110) mg/dL POC Glucose (mg/dL) 221 H (75-99) mg/dL Calcium (8.7-10.3) mg/dL KRANTHI Screen (NEGATIVE) Microbiology - Last 24 Hours (Table) 02/12/21 16:35 Blood Culture - Preliminary Blood No Growth after 48 hours 02/12/21 16:35 Blood Culture - Preliminary Blood No Growth after 48 hours Assessment and Plan Plan: Assessment: #1. Hypoxic rest she failure, multifactorial, related to bilateral pleural effusions, and possibility of bibasilar pneumonia #2. Status post puncture wound to the left foot, which has become infected with methicillin sensitive staph aureus. #3. History of diabetes mellitus. #4. Non-anion gap metabolic acidosis, secondary to renal failure. #5. Acute kidney injury related to possibility of interstitial nephritis #6. Mild hyperkalemia. #7. Anemia. Plan: Patient has been stable from pulmonary perspective No worsening dyspnea FiO2 is down to 4 L Maintaining stable to saturations Diuretics per nephrology Patient continues on prednisone Underwent kidney biopsy and currently transfers pending to tertiary care facility per nephrology recommendations I performed a history & physical examination of the patient and discussed their management with my nurse practitioner, Stefania Quiñonez. I reviewed the nurse practitioner's note and agree with the documented findings and plan of care. Lung sounds are positive for diminished breath sounds throughout the lung fie lds. The findings and the impression was discussed with the patient. I attest to the documentation by the nurse practitioner. Time with Patient: Less than 30
--- NOTE | 2021-02-15 18:31 | PN ---
PROGRESS NOTE DATE OF SERVICE: 02/15/2021. REASON FOR FOLLOW UP: Left foot abscess cellulitis MSSA. INTERVAL HISTORY: The patient is currently afebrile. Patient is breathing more comfortably. Denies having any chest pain, cough. No abdominal pain or pain to the left foot area. PHYSICAL EXAMINATION: Blood pressure 151/76, pulse of 79, temp 97.6. She is 95% on 5 L nasal cannula. General description is a middle-aged female up in the bed in no distress. Respiratory system: Unlabored breathing, decreased breath sounds at bases. No wheeze. Heart S1, S2. Regular rate and rhythm. Abdomen soft, no tenderness. Extremities: With 2+ edema of feet. LABS: Hemoglobin is 9.1, white count 11.7, BUN 104, creatinine 3.0. DIAGNOSTIC IMPRESSION AND PLAN: 1. Patient with left foot abscess cellulitis status post left third toe amputation. Culture positive for MSSA. Clinical course complicated by renal failure. Biopsy could not be completed by Interventional Radiology, being transferred to the [facility]. Patient is covered with daptomycin to continue as there was concern for possible related to the cefazolin. 2. Patient with respiratory failure more likely due to fluid overload. Clinically doubt pneumonia. Antibiotic can be discontinued. MMODL / IJN: [id number] / MTDD
[2021-02-15 21:04] LABS: Glucose,Whole Blood 348 mg/dL (75-99)
[2021-02-16 07:21] LABS: Glucose,Whole Blood 269 mg/dL (75-99)
[2021-02-16] MEDS: PIPERACILLIN-TAZOBACTAM 3.375 GM in SODIUM CHLORIDE 0.9% 100 ML IVPB SCH (09:03)
[2021-02-16] MEDS: INSULIN ASPART (NovoLOG) 100 UNIT/ML VIAL SQ SCH ×7 (09:04→21:21)
[2021-02-16] MEDS: INSULIN DETEMIR (LEVEMIR) 100 UNIT/ML SYR SQ SCH ×2 (09:04→21:21)
[2021-02-16] MEDS: PREGABALIN 75 MG CAP PO SCH ×2 (09:06→21:21)
[2021-02-16] MEDS: FAMOTIDINE 20 MG TAB PO SCH (09:06)
[2021-02-16] MEDS: predniSONE 10 MG TAB PO SCH ×2 (09:06→21:21)
[2021-02-16] MEDS: DOXYCYCLINE 100 MG CAP PO SCH ×2 (09:06→23:44)
[2021-02-16] MEDS: FOLIC ACID 1 MG TAB PO SCH (09:06)
[2021-02-16] MEDS: amLODIPine 5 MG TAB PO SCH (09:06)
[2021-02-16] MEDS: SODIUM BICARBONATE TAB 650 MG TAB PO SCH ×4 (09:06→23:44)
[2021-02-16] MEDS: CYANOCOBALAMIN 500 MCG TAB PO SCH (09:06)
[2021-02-16 09:18] LABS: Basophils # (A) 0.01 X 10*3/uL (0.00-0.10); Basophils % (A) 0.1 %; Eosinophils # (A) 0 X 10*3/uL (0.04-0.35); Eosinophils % (A) 0 %; HCT 30.7 % (37.2-46.3); HGB 9.7 g/dL (12.0-15.0); Lymphocytes # (A) 0.57 X 10*3/uL (0.90-5.00); Lymphocytes % (A) 4.4 %; MCH 25.7 pg (27.0-32.0); MCHC 31.6 g/dL (32.0-37.0); MCV 81.4 fL (80.0-97.0); Monocytes # (A) 0.46 X 10*3/uL (0.20-1.00); Monocytes % (A) 3.5 %; Neutrophils # (A) 11.87 X 10*3/uL (1.80-7.70); Neutrophils % (A) 91.2 %; Platelet Count 510 X 10*3/uL (140-440); RBC 3.77 X 10*6/uL (4.10-5.20); RDW 15.2 % (11.5-14.5); WBC 13.01 X 10*3/uL (4.50-10.00)
[2021-02-16 10:08] LABS: African American GFR (CKD) 19.7 (60.0-200.0); Albumin 3.1 g/dL (3.80-4.90); Albumin/Globulin Ratio 1.11 (1.60-3.17); Anion Gap 8.9 mmol/L (4.00-12.00); BUN/Creat Ratio 38.28 Ratio (12.00-20.00); Calcium 7.8 mg/dL (8.7-10.3); Carbon Dioxide 22.1 mmol/L (21.6-31.8); Globulin 2.8 g/dL (1.6-3.3); Potassium 5.8 mmol/L (3.5-5.5); Total Bilirubin 0.2 mg/dL (0.3-1.2); Total Protein 5.9 g/dL (6.2-8.2)
[2021-02-16 11:28] LABS: Glucose,Whole Blood 212 mg/dL (75-99)
[2021-02-16] MEDS: HYDROCORTISONE 1% CREAM 454 GM JAR TOPICAL SCH ×3 (11:53→21:22)
--- NOTE | 2021-02-16 11:58 | CT ---
EXAMINATION TYPE: CT biopsy renal LT DATE OF EXAM: 02/16/2021 COMPARISON: NONE HISTORY: Renal failure CT DLP: 2320 mGycm The procedure was explained to the patient. The risks, complications, benefits, and alternatives wer e discussed and any questions were answered. Informed consent was obtained. Patient was placed pron e on the CT table and prepped and draped in the usual sterile fashion. Utilizing CT guidance, an 18 gauge core biopsy needle access into the left renal cortex was achieved and three 18 gauge core samples were obtained. The patient was stable throughout the procedure and r emained stable upon discharge. IMPRESSION: Successful 18 gauge core biopsy of the kidney function.
--- NOTE | 2021-02-16 13:22 | P.PN ---
Subjective Progress Note Date: 02/16/21 Principal diagnosis: Hospital course: Patient is a 61-year-old female with a past medical history of insulin-dependent diabetes mellitus. She presented to the hospital on 01/31/21 with a chief complaint of left foot infection. She was found to have significant leukocytosis with WBC count of 25.2. X-ray left foot revealing mild soft tissue swelling calcaneal spurring no acute bony abnormality with no signs of osteomyelitis. CT left foot revealing prominent generalized soft tissue swelling with no discrete abscess identified. She underwent debridement, I and D and third toe amputation by Dr. Hammonds on 02/06/21. She was receiving IV antibiotic vancomycin, her wound cultures came back positive for Staphylococcus aureus and antibiotic changed to cefazolin. On 02/09/21 patient was discovered to have petechiae rash covering lower extremities and trunk along with lab findings indicative of acute kidney injury with BUN of 50.0, creatinine of 2.1, and GFR of 25.1 which was significantly elevated from baseline creatinine of 0.7. Patient received IV hydration with no improvement and on 02/10/21 renal functioning worsening with IV hydration with BUN of 62, creatinine 2.60, and GFR of 19. Nephrology was consulted and renal ultrasound was completed showing no suspicious acute changes reported with right kidney described as appearing enlarged and collecting systems slightly dilated and left kidney also enlarged with isoechoic area 2.2 x 2.8 x 2.3 cm. On the evening of 02/10/21 received called to bedside with patient's reports of sudden onset shortness of breath and chest pain. With THIEN, petechiae rash, chest pain, and new onset shortness of breath, this was concerning for ALLERGIC interstitial nephritis, cephalexin was discontinued and patient given Solu-Medrol 125 mg IVP, Benadryl 50 mg IVP, and Pepcid 20 mg IVP at this time. Cardiac workup then completed which was negative for acute abnormalities. ABG revealed compensated metabolic acidosis with pH of 7.410, pCO2 of 30.9, and PaO2 of 62.2 with a bicarb of 19.6. D-dimer elevated at 6.02. Patient placed on heparin infusion, with V/Q scan and Dopplers to be completed. Bilateral lower extremity Dopplers were negative for DVT and VQ scan showing low probability lung VQ scan. Heparin infusion was discontinued. Patient's condition improved by morning, patient states chest pain and shortness of breath subsided. However she continued to have worsening renal function with BUN of 69, creatinine 2.66, and GFR of 19. Nephrology evaluated patient and at this time they decided to hold off on administering further steroids. Infectious disease evaluated and started patient on daptomycin since discontinuation of cefazolin and current renal function. On 02/12/21 patient was found to be in significant respiratory distress with complaints of generalized body aches and pains, chills, and had elevated temp of 100.5F. Patient was swabbed for Covid 19 virus which was negative. Consult placed to pulmonology. A repeat chest x-ray was completed showing left effusion with adjacent atelectasis/pneumonia and at this time Zosyn and doxycycline were added to patient's current antibiotic regimen with daptomycin. Throughout the day patient's condition continued to worsen and she went from 2 L O2 via nasal cannula 2 requiring 15 L O2 via nonrebreather. STAT CT chest was completed showing pleural effusions with bilateral extensive pneumonia with atelectasis and lower lobes and paratracheal lymph nodes, findings possibly related to CHF or ARDS. Patient given 125 mg Solu-Medrol IVP and additional labs placed including ANAC and anti-GBM antibodies. Nephrology place patient on prednisone 30 mg twice daily and sodium bicarb tablets 650 mg 4 times daily. Renal function continuing to decline with BUN 88, creatinine of 3.31, and GFR 15. Nephrology has consulted IR for renal biopsy. Plans for renal biopsy to be completed in the next 24-48 hours. Subjective: Feels better today, status post renal biopsy. On 4 L of oxygen. No chest pain, no abdominal pain. Objective - Vital Signs Vital signs: Vital Signs Temp 97.4 F L 02/16/21 12:18 Pulse 66 02/16/21 12:18 Resp 18 02/16/21 11:48 BP 131/70 02/16/21 12:18 Pulse Ox 96 02/16/21 11:48 Intake & Output 02/15/21 02/16/21 02/16/21 18:59 06:59 18:59 Intake Total 100 Output Total 900 800 Balance -900 100 -800 Intake: Intake, IV Titration 100 Amount Piperacillin-Tazobactam 3 100 .375 gm In Sodium Chloride 0.9% 100 ml @ 25 mls/hr IVPB Q12HR [facility] Rx #:[id number] Output: Urine 900 800 Uretheral (Magallanes) 800 Other: Voiding Method Indwelling Catheter Indwelling Catheter Indwelling Catheter # Bowel Movements 2 - Exam General: Nontoxic, no distress and appears stated age. On 4 L of oxygen Derm: Skin warm and dry, normal coloration for ethnicity. Head: Atraumatic, normocephalic and symmetric. Eyes: EOMs intact, no lid lag, and anicteric sclera. Mouth: no lip lesions, mucus membranes moist. Cardiovascular: regular rate and rhythm with normal S1S2, no murmur Lungs: Respirations even, regular, and unlabored on room air. Lungs CTA bilaterally, no rhonchi, no rales, no wheezing, and no accessory muscle usage. Abdominal: soft, nontender to palpation, no guarding, no appreciable organomegaly Ext: ROM intact. No gross muscle atrophy, no edema, no contractures. Left foot postsurgical dressing intact. Neuro: Speech clear, face symmetrical and CN II-XII grossly intact with no noted focal neuro deficits. Psych: Alert and oriented to person, place, time, and situation. Appropriate and pleasant affect. - Labs CBC & Chem 7: 02/16/21 06:27 02/16/21 06:27 Labs: Abnormal Lab Results - Last 24 Hours (Table) 02/15/21 02/15/21 02/15/21 Range/Units 16:49 17:08 20:51 WBC (4.50-10.00) X 10*3/uL RBC (4.10-5.20) X 10*6/uL Hgb (12.0-15.0) g/dL Hct (37.2-46.3) % MCH (27.0-32.0) pg MCHC (32.0-37.0) g/dL RDW (11.5-14.5) % Plt Count (140-440) X 10*3/uL Immature Gran # (0.00-0.04) X 10*3/uL Neutrophils # (1.80-7.70) X 10*3/uL Lymphocytes # (0.90-5.00) X 10*3/uL Eosinophils # (0.04-0.35) X 10*3/uL Potassium 5.7 H (3.5-5.1) mmol/L BUN (9.0-27.0) mg/dL Creatinine (0.6-1.5) mg/dL Est GFR (CKD-EPI)AfAm (60.0-200.0) Est GFR (CKD-EPI)NonAf (60.0-200.0) BUN/Creatinine Ratio (12.00-20.00) Ratio Glucose (70-110) mg/dL POC Glucose (mg/dL) 221 H 348 H (75-99) mg/dL Calcium (8.7-10.3) mg/dL Total Bilirubin (0.3-1.2) mg/dL Total Protein (6.2-8.2) g/dL Albumin (3.80-4.90) g/dL Albumin/Globulin Ratio (1.60-3.17) g/dL 02/16/21 02/16/21 02/16/21 Range/Units 06:27 06:27 07:20 WBC 13.01 H (4.50-10.00) X 10*3/uL RBC 3.77 L (4.10-5.20) X 10*6/uL Hgb 9.7 L (12.0-15.0) g/dL Hct 30.7 L (37.2-46.3) % MCH 25.7 L (27.0-32.0) pg MCHC 31.6 L (32.0-37.0) g/dL RDW 15.2 H (11.5-14.5) % Plt Count 510 H (140-440) X 10*3/uL Immature Gran # 0.10 H (0.00-0.04) X 10*3/uL Neutrophils # 11.87 H (1.80-7.70) X 10*3/uL Lymphocytes # 0.57 L (0.90-5.00) X 10*3/uL Eosinophils # 0 L (0.04-0.35) X 10*3/uL Potassium 5.8 H (3.5-5.1) mmol/L BUN 111.0 H* (9.0-27.0) mg/dL Creatinine 2.9 H (0.6-1.5) mg/dL Est GFR (CKD-EPI)AfAm 19.7 L (60.0-200.0) Est GFR (CKD-EPI)NonAf 17.0 L (60.0-200.0) BUN/Creatinine Ratio 38.28 H (12.00-20.00) Ratio Glucose 256 H (70-110) mg/dL POC Glucose (mg/dL) 269 H (75-99) mg/dL Calcium 7.8 L (8.7-10.3) mg/dL Total Bilirubin 0.2 L (0.3-1.2) mg/dL Total Protein 5.9 L (6.2-8.2) g/dL Albumin 3.10 L (3.80-4.90) g/dL Albumin/Globulin Ratio 1.11 L (1.60-3.17) g/dL 02/16/21 Range/Units 11:27 WBC (4.50-10.00) X 10*3/uL RBC (4.10-5.20) X 10*6/uL Hgb (12.0-15.0) g/dL Hct (37.2-46.3) % MCH (27.0-32.0) pg MCHC (32.0-37.0) g/dL RDW (11.5-14.5) % Plt Count (140-440) X 10*3/uL Immature Gran # (0.00-0.04) X 10*3/uL Neutrophils # (1.80-7.70) X 10*3/uL Lymphocytes # (0.90-5.00) X 10*3/uL Eosinophils # (0.04-0.35) X 10*3/uL Potassium (3.5-5.1) mmol/L BUN (9.0-27.0) mg/dL Creatinine (0.6-1.5) mg/dL Est GFR (CKD-EPI)AfAm (60.0-200.0) Est GFR (CKD-EPI)NonAf (60.0-200.0) BUN/Creatinine Ratio (12.00-20.00) Ratio Glucose (70-110) mg/dL POC Glucose (mg/dL) 212 H (75-99) mg/dL Calcium (8.7-10.3) mg/dL Total Bilirubin (0.3-1.2) mg/dL Total Protein (6.2-8.2) g/dL Albumin (3.80-4.90) g/dL Albumin/Globulin Ratio (1.60-3.17) g/dL Microbiology - Last 24 Hours (Table) 02/12/21 16:35 Blood Culture - Preliminary Blood No Growth after 72 hours 02/12/21 16:35 Blood Culture - Preliminary Blood No Growth after 72 hours Assessment and Plan Plan: Acute kidney injury, worsening Hyperkalemia Hypocalcemia Compensated Metabolic acidosis -Worsening renal function with BUN of 88, creatinine 3.31 at its peak 11/27/2020 currently improved to 2.9 -Renal and bladder ultrasound negative for abnormalities. -Urinalysis negative for infection. -Urine eosinophils negative -Urine protein to creatinine ratio normal findings. Urine protein and urine creatinine normal findings. -Nephrology following with patient prednisone 30 mg twice daily for treatment of possible interstitial nephritis and sodium bicarb tablets . -ANAC and anti-GBM antibodies negative KRANTHI positive Status post renal biopsy. -Avoid nephrotoxic medications. -Hyperkalemia and hypocalcemia Metabolic acidosis secondary to acute kidney injury: Resolved, continue oral bicarbonate Acute respiratory failure with hypoxia Extensive Bilateral Pneumonia Elevated d-dimer accompanied by chest pain and shortness of breath, PE and DVT ruled out -CT chest was completed showing pleural effusions with bilateral extensive pneumonia with atelectasis and lower lobes and paratracheal lymph nodes, findings possibly related to CHF or ARDS. -COVID PCR negative -CXR revealing LLL pneumonia. -Additional antibiotics added at this time: Zosyn and doxycycline -D-dimer is 6.04. -Heparin infusion initiated and VQ scan completed. VQ scan was negative, heparin infusion discontinued. -Bilateral lower extremity Dopplers completed negative for DVTs. -Pulmonology following, appreciate recommendations Continues on oxygen, down to 40 years Cellulitis of the left foot with an infected puncture wound to the plantar aspect of the third toe, currently status post debridement, I&D and third toe amputation by Dr. Hammonds on 02/06/21 Severe sepsis without septic shock -Treated with aggressive IV fluid hydration and antibiotics. -Lactic acid was normal. -Blood culture negative -Wound cultures positive for staph aureus -Infectious disease and vascular surgery following -IV antibiotics: Daptomycin, doxycycline, and Zosyn Severe frontal headache, now resolved. -Computed tomography scan in the ER showed no acute findings negative for acute intercranial process. Type 2 diabetes insulin-dependent diabetes mellitus -Hold Glucophage and placed on glycemic protocol with sliding scale. -Levemir increased to 10 units twice daily secondary to hyperglycemia likely resulting from steroid use. -Hemoglobin A1c 8.1%. -Heart healthy and carb consistent diet. Disposition: Pending clinical progression, pending renal biopsy results. Treatment plan discussed with the patient and her family at bedside.
[2021-02-16 13:34] LABS: ANA Pattern Speckled
[2021-02-16 16:38] LABS: Glucose,Whole Blood 393 mg/dL (75-99)
--- NOTE | 2021-02-16 16:50 | PN ---
PROGRESS NOTE Preoperative diagnosis was wet gangrene of the left foot, fourth toe, and dorsal aspect of the foot with cellulitis. The patient underwent ray amputation. We are changing the dressing with Aquacel Silver. There is still some devitalized tissue. We will use Santyl cream and dressing should be changed every day. We will hold the Aquacel Silver. Patient is under the care of Infectious Disease. The patient is on IV antibiotic. Today the patient had a kidney biopsy done. MMODL / IJN: [id number] /
--- NOTE | 2021-02-16 17:18 | PN ---
PROGRESS NOTE DATE OF SERVICE: 02/16/2021 REASON FOR FOLLOWUP: Left foot abscess and cellulitis. INTERVAL HISTORY: The patient is afebrile. The patient is status post renal biopsy completed. Patient tolerated procedure. Denies having any chest pain or shortness of breath. Cough has decreased intensity. No vomiting. No abdominal pain or diarrhea. PHYSICAL EXAMINATION: Blood pressure is 153/70 with a pulse of 83, temperature 99. She is 96% on 5 L nasal cannula. General description is a middle-aged female lying in bed in no distress. Respiratory system: Unlabored breathing, decreased breath sounds at bases. No wheeze. Heart S1, S2. Regular rate and rhythm. Abdomen soft, no tenderness. LABS: Hemoglobin is 9, white count of 13, creatinine 2.9. DIAGNOSTIC IMPRESSION AND PLAN: 1. Patient with left foot abscess cellulitis status post amputation of the left third toe. Culture positive for MSSA. The patient subsequently developing renal failure, question about interstitial nephritis. We will continue with daptomycin. 2. Patient with respiratory distress, more likely fluid overload. Clinically not behaving as pneumonia, should discontinue the Zosyn and monitor the patient closely. MMODL / IJN: [id number] / REJI
[2021-02-16] MEDS ORDERED: FUROSEMIDE 10 MG/ML 10 ML VIAL IV STA (18:06)
--- NOTE | 2021-02-16 19:44 | PN ---
PROGRESS NOTE Patient is seen for followup for acute kidney injury which is most likely acute interstitial nephritis versus any other underlying acute GN. Patient's KRANTHI was positive. All other serologies were negative. She did have a kidney biopsy done today. In the meantime, patient is currently being diuresed, with improvement in her respiratory status and oxygenation. She continues to have good urine output; 24-hour output documented at 2.1 L. The patient has an indwelling Magallanes catheter. She is maintained on oral steroids empirically. PHYSICAL EXAMINATION: On examination today, blood pressure 122/70, heart rate 83 per minute. She is afebrile. EXAMINATION OF THE HEART: S1 and S2. EXAMINATION OF LUNGS: Decreased breath sounds at the bases. ABDOMEN: Soft, nontender, obese. LOWER EXTREMITIES: Examination of lower extremities shows 1+ edema bilaterally. NURSE SUPERVISOR EXAM: Grossly intact. LABS: Sodium 137, potassium 5.8, BUN 111, serum creatinine 2.9, hemoglobin 9.7 g/dL. ASSESSMENT: 1. Acute kidney injury, most likely acute interstitial nephritis. Need to rule out any other underlying acute GN as KRANTHI is positive, but all other serologies are negative. Patient did have a kidney biopsy done today. Hopefully we will have the results by tomorrow. 2. Status post allergic reaction to antibiotic earlier on during the hospitalization. 3. Volume overload, currently being diuresed. 4. Disproportionately elevated BUN secondary to steroids. 5. Left leg cellulitis with history of gangrene, status post re-amputation of third toe. 6. Metabolic acidosis, maintained on oral sodium bicarb. 7. Hyperkalemia associated with acute kidney injury as well as high blood sugars. 8. Acute hypoxic respiratory failure secondary to pneumonia as well as congestive heart failure and consideration for pulmonary renal syndrome, for which patient has just had a biopsy and is maintained on empiric steroids. PLAN: Continue to diurese patient. Control blood sugars. Repeat labs in a.m. The patient may need to be started on an insulin drip if her blood sugar remains elevated. MMODL / IJN: [id number] /
[2021-02-16 21:06] LABS: Glucose,Whole Blood 259 mg/dL (75-99)
[2021-02-16] MEDS: FUROSEMIDE 10 MG/ML 10 ML VIAL IV SCH (23:44)
[2021-02-17] MEDS: ALBUTEROL NEBULIZED 2.5 MG/3 ML INHALATION PRN ×4 (01:12→20:24)
[2021-02-17] MEDS: ALPRAZolam 0.5 MG TAB PO PRN ×2 (02:31→21:03)
--- NOTE | 2021-02-17 06:49 | P.PN ---
Subjective Progress Note Date: 02/17/21 Principal diagnosis: 61-year-old female seen in consultation because of acute kidney injury. Creatinine was 0.7 on 02/07/2021 and the next Creatinine available on 02/09/2021 and went up to 2.1. the acute kidney injury was deemed to be from vancomycin based on vancomycin level was 21.8 on 02/07/2021. She had a petechial rash on her lower extremities therefore possible acute i nterstitial nephritis was considered she was started on prednisone on 02/12/2021. Because of worsening shortness of breath and bilateral atypical pneumonia a kidney biopsy has been performed as of yesterday 02/26/2021 results are pending. Creatinine stable She remained short of breath. Workup has been negative with c-ANCA p-ANCA as well as anti-GBM antibodies KRANHTI is positive titer not available Hepatitis markers are negative HIV negative Objective - Vital Signs Vital signs: Vital Signs Temp 98.6 F 02/17/21 02:30 Pulse 82 02/17/21 02:30 Resp 20 02/17/21 02:30 BP 147/72 02/17/21 02:30 Pulse Ox 96 02/17/21 02:30 Intake & Output 02/16/21 02/16/21 02/17/21 06:59 18:59 06:59 Intake Total 100 360 240 Output Total 800 925 Balance 100 -440 -685 Intake: Intake, IV Titration 100 Amount Piperacillin-Tazobactam 3 100 .375 gm In Sodium Chloride 0.9% 100 ml @ 25 mls/hr IVPB Q12HR [facility] Rx #:[id number] Oral 360 240 Output: Urine 800 925 Uretheral (Magallanes) 800 925 Other: Voiding Method Indwelling Catheter Indwelling Catheter Indwelling Catheter # Voids 2 # Bowel Movements 2 Examination she is awake alert oriented. She is short of breath and she has a nasal cannula on oxygen HEENT exam no JVP neck is supple no facial asymmetry Lungs are significant for bilateral coarse crackles at bases good air entry bilaterally Heart sounds unremarkable for any murmur rub gallop Abdomen soft nontender Extremity exam was 2+ edema - Labs CBC & Chem 7: 02/16/21 06:27 02/16/21 06:27 Labs: Abnormal Lab Results - Last 24 Hours (Table) 02/16/21 02/16/21 02/16/21 Range/Units 06:27 06:27 07:20 WBC 13.01 H (4.50-10.00) X 10*3/uL RBC 3.77 L (4.10-5.20) X 10*6/uL Hgb 9.7 L (12.0-15.0) g/dL Hct 30.7 L (37.2-46.3) % MCH 25.7 L (27.0-32.0) pg MCHC 31.6 L (32.0-37.0) g/dL RDW 15.2 H (11.5-14.5) % Plt Count 510 H (140-440) X 10*3/uL Immature Gran # 0.10 H (0.00-0.04) X 10*3/uL Neutrophils # 11.87 H (1.80-7.70) X 10*3/uL Lymphocytes # 0.57 L (0.90-5.00) X 10*3/uL Eosinophils # 0 L (0.04-0.35) X 10*3/uL Potassium 5.8 H (3.5-5.5) mmol/L BUN 111.0 H* (9.0-27.0) mg/dL Creatinine 2.9 H (0.6-1.5) mg/dL Est GFR (CKD-EPI)AfAm 19.7 L (60.0-200.0) Est GFR (CKD-EPI)NonAf 17.0 L (60.0-200.0) BUN/Creatinine Ratio 38.28 H (12.00-20.00) Ratio Glucose 256 H (70-110) mg/dL POC Glucose (mg/dL) 269 H (75-99) mg/dL Calcium 7.8 L (8.7-10.3) mg/dL Total Bilirubin 0.2 L (0.3-1.2) mg/dL Total Protein 5.9 L (6.2-8.2) g/dL Albumin 3.10 L (3.80-4.90) g/dL Albumin/Globulin Ratio 1.11 L (1.60-3.17) g/dL 02/16/21 02/16/21 02/16/21 Range/Units 11:27 16:37 21:04 WBC (4.50-10.00) X 10*3/uL RBC (4.10-5.20) X 10*6/uL Hgb (12.0-15.0) g/dL Hct (37.2-46.3) % MCH (27.0-32.0) pg MCHC (32.0-37.0) g/dL RDW (11.5-14.5) % Plt Count (140-440) X 10*3/uL Immature Gran # (0.00-0.04) X 10*3/uL Neutrophils # (1.80-7.70) X 10*3/uL Lymphocytes # (0.90-5.00) X 10*3/uL Eosinophils # (0.04-0.35) X 10*3/uL Potassium (3.5-5.5) mmol/L BUN (9.0-27.0) mg/dL Creatinine (0.6-1.5) mg/dL Est GFR (CKD-EPI)AfAm (60.0-200.0) Est GFR (CKD-EPI)NonAf (60.0-200.0) BUN/Creatinine Ratio (12.00-20.00) Ratio Glucose (70-110) mg/dL POC Glucose (mg/dL) 212 H 393 H 259 H (75-99) mg/dL Calcium (8.7-10.3) mg/dL Total Bilirubin (0.3-1.2) mg/dL Total Protein (6.2-8.2) g/dL Albumin (3.80-4.90) g/dL Albumin/Globulin Ratio (1.60-3.17) g/dL Microbiology - Last 24 Hours (Table) 02/12/21 16:35 Blood Culture - Preliminary Blood No Growth after 96 hours 02/12/21 16:35 Blood Culture - Preliminary Blood No Growth after 96 hours Assessment and Plan Assessment: Impression 1. Acute kidney injury with creatinine going up from 0.7, on 02/07/2021 to-2.1 in 2 days' time on 02/09/2021, with the vancomycin level being 21.3 on 02/07/2021 unit. Other diagnoses include possibility of acute interstitial nephritis is considered, urine eosinophil is 0. Urinalysis is not very suggestive though, usually you see RBCs and WBCs. She has 5 RBCs and 2 WBCs and which could be from diabetic nephropathy. Urine protein to creatinine ratio is 2.5 g. Creatinine continues to go up to 3.31 from 2.6 and 2.1. Because of bilateral pneumonitis possibility of pulmonary renal syndrome is considered strongly. Workup has been so far negative with c-ANCA and p-ANCA as well as anti-GBM. Kidney biopsy done yesterday results pending. Creatinine stable 2. Diabetes mellitus with left foot cellulitis. With associated diabetic neph ropathy with 2+ proteinuria. Urine protein to creatinine is 2.5 g. 3. Deafness and peripheral neuropathy neuropathy but no hematuria or family history to suggest [place] syndrome. The acute kidney injury is not explained by this diagnosis and is unrelated. 4. Hyponatremia secondary acute kidney injury.sodium improved to 137. 5. Mild degree of non-gap acidosis from acute kidney injury.bicarb is 22, on sodium bicarb 650 4 times a day. 6. Mild hyperkalemia secondary to high blood sugars when she was 23 and potassium is 5.4 Recommendation 1. continue prednisone 30 twice a day for possibility of acute interstitial nephritis. Kidney biopsy pending 2. Monitor labs urine output. 3. Maintain Lasix because of the significant edema
[2021-02-17 07:25] LABS: Glucose,Whole Blood 150 mg/dL (75-99)
[2021-02-17 09:14] LABS: Basophils # (A) 0 X 10*3/uL (0.00-0.10); Basophils % (A) 0 %; Eosinophils # (A) 0 X 10*3/uL (0.04-0.35); Eosinophils % (A) 0 %; HCT 28.5 % (37.2-46.3); HGB 9.1 g/dL (12.0-15.0); Lymphocytes # (A) 0.83 X 10*3/uL (0.90-5.00); Lymphocytes % (A) 5.8 %; MCHC 31.9 g/dL (32.0-37.0); MCV 81.4 fL (80.0-97.0); Mean Platelet Volume 9.8 fL (9.5-12.2); Monocytes # (A) 0.55 X 10*3/uL (0.20-1.00); Monocytes % (A) 3.8 %; Neutrophils # (A) 12.81 X 10*3/uL (1.80-7.70); Neutrophils % (A) 89.6 %; Platelet Count 489 X 10*3/uL (140-440); RDW 15.3 % (11.5-14.5)
[2021-02-17] MEDS: INSULIN DETEMIR (LEVEMIR) 100 UNIT/ML SYR SQ SCH ×2 (10:14→20:59)
[2021-02-17] MEDS: INSULIN ASPART (NovoLOG) 100 UNIT/ML VIAL SQ SCH ×7 (10:14→21:06)
[2021-02-17] MEDS: SODIUM BICARBONATE TAB 650 MG TAB PO SCH ×4 (10:15→21:04)
[2021-02-17] MEDS: amLODIPine 5 MG TAB PO SCH (10:15)
[2021-02-17] MEDS: PREGABALIN 75 MG CAP PO SCH ×2 (10:15→21:04)
[2021-02-17] MEDS: CYANOCOBALAMIN 500 MCG TAB PO SCH (10:15)
[2021-02-17] MEDS: FOLIC ACID 1 MG TAB PO SCH (10:15)
[2021-02-17] MEDS: FAMOTIDINE 20 MG TAB PO SCH (10:16)
[2021-02-17] MEDS: DOXYCYCLINE 100 MG CAP PO SCH ×2 (10:16→21:04)
[2021-02-17] MEDS: FUROSEMIDE 10 MG/ML 10 ML VIAL IV SCH ×2 (10:16→21:02)
[2021-02-17] MEDS: predniSONE 10 MG TAB PO SCH ×2 (10:16→21:03)
[2021-02-17] MEDS: COLLAGENASE 250 UNIT/GM OINTMENT 30 GM TUBE TOPICAL SCH (10:17)
[2021-02-17] MEDS: HYDROCORTISONE 1% CREAM 454 GM JAR TOPICAL SCH ×3 (10:18→22:12)
[2021-02-17 11:35] LABS: African American GFR (CKD) 21.5 (60.0-200.0); Albumin/Globulin Ratio 1.11 (1.60-3.17); Anion Gap 8.1 mmol/L (4.00-12.00); BUN/Creat Ratio 41.48 Ratio (12.00-20.00); Calcium 8.2 mg/dL (8.7-10.3); Carbon Dioxide 23.9 mmol/L (21.6-31.8); Globulin 2.7 g/dL (1.6-3.3); Non-African American GFR(CKD) 18.5 (60.0-200.0); Potassium 5.9 mmol/L (3.5-5.5); Total Bilirubin 0.3 mg/dL (0.2-1.2); Total Protein 5.7 g/dL (6.2-8.2)
[2021-02-17 11:36] LABS: Glucose,Whole Blood 199 mg/dL (75-99)
--- NOTE | 2021-02-17 15:50 | P.PN ---
Subjective Progress Note Date: 02/17/21 Principal diagnosis: Patient is a 61-year-old female with a past medical history of insulin-dependent diabetes mellitus. She presented to the hospital on 01/31/21 with a chief complaint of left foot infection. She was found to have significant leukocytosis with WBC count of 25.2. X-ray left foot revealing mild soft tissue swelling calcaneal spurring no acute bony abnormality with no signs of osteomyelitis. CT left foot revealing prominent generalized soft tissue swelling with no discrete abscess identified. She underwent debridement, I and D and third toe amputation by Dr. Hammonds on 02/06/21. She was receiving IV antibiotic vancomycin, her wound cultures came back positive for Staphylococcus aureus and antibiotic changed to cefazolin. On 02/09/21 patient was discovered to have petechiae rash covering lower extremities and trunk along with lab findings indicative of acute kidney injury with BUN of 50.0, creatinine of 2.1, and GFR of 25.1 which was significantly elevated from baseline creatinine of 0.7. Patient received IV hydration with no improvement and on 02/10/21 renal functioning worsening with IV hydration with BUN of 62, creatinine 2.60, and GFR of 19. Nephrology was consulted and renal ultrasound was completed showing no suspicious acute changes reported with right kidney described as appearing enlarged and collecting systems slightly dilated and left kidney also enlarged with isoechoic area 2.2 x 2.8 x 2.3 cm. On the evening of 02/10/21 received called to bedside with patient's reports of sudden onset shortness of breath and chest pain. With THIEN, petechiae rash, chest pain, and new onset shortness of breath, this was concerning for ALLERGIC interstitial nephritis, cephalexin was discontinued and patient given Solu-Medrol 125 mg IVP, Benadryl 50 mg IVP, and Pepcid 20 mg IVP at this time. Cardiac workup then completed which was negative for acute abnormalities. ABG revealed compensated metabolic acidosis with pH of 7.410, pCO2 of 30.9, and PaO2 of 62.2 with a bicarb of 19.6. D-dimer elevated at 6.02. Patient placed on heparin infusion, with V/Q scan and Dopplers to be completed. Bilateral lower extremity Dopplers were negative for DVT and VQ scan showing low probability lung VQ scan. Heparin infusion was discontinued. Patient's condition improved by morning, patient states chest pain and shortness of breath subsided. However she continued to have worsening renal function with BUN of 69, creatinine 2.66, and GFR of 19. Nephrology evaluated patient and at this time they decided to hold off on administering further steroids. Infectious disease evaluated and started patient on daptomycin since discon tinuation of cefazolin and current renal function. On 02/12/21 patient was found to be in significant respiratory distress with complaints of generalized body aches and pains, chills, and had elevated temp of 100.5F. Patient was swabbed for Covid 19 virus which was negative. Consult placed to pulmonology. A repeat chest x-ray was completed showing left effusion with adjacent atelectasis/pneumonia and at this time Zosyn and doxycycline were added to patient's current antibiotic regimen with daptomycin. Throughout the day patient's condition continued to worsen and she went from 2 L O2 via nasal cannula 2 requiring 15 L O2 via nonrebreather. STAT CT chest was completed showing pleural effusions with bilateral extensive pneumonia with atelectasis and lower lobes and paratracheal lymph nodes, findings possibly related to CHF or ARDS. Patient given 125 mg Solu-Medrol IVP and additional labs placed including ANAC and anti-GBM antibodies. Nephrology place patient on prednisone 30 mg twice daily and sodium bicarb tablets 650 mg 4 times daily. Renal function continuing to decline with BUN 88, creatinine of 3.31, and GFR 15. Nephrology has consulted IR for renal biopsy. Plans for renal biopsy to be completed in the next 24-48 hours. 02/17: Patient seen and examined. She is stable she denies any nausea vomiting fever or chills. Her renal biopsy currently still pending O respiratory issues at this time. Patient remains on 4 L nasal cannula Objective - Vital Signs Vital signs: Vital Signs Temp 98.6 F 02/17/21 15:03 Pulse 87 02/17/21 15:03 Resp 20 02/17/21 15:03 BP 155/71 02/17/21 15:03 Pulse Ox 96 02/17/21 15:03 Intake & Output 02/16/21 02/17/21 02/17/21 18:59 06:59 18:59 Intake Total 360 240 Output Total 800 925 Balance -440 -685 Intake: Oral 360 240 Output: Urine 800 925 Uretheral (Magallanes) 800 925 Other: Voiding Method Indwelling Catheter Indwelling Catheter Indwelling Catheter # Voids 2 - Exam General: Nontoxic, no distress and appears stated age. On 4 L of oxygen Derm: Skin warm and dry, normal coloration for ethnicity. Head: Atraumatic, normocephalic and symmetric. Eyes: EOMs intact, no lid lag, and anicteric sclera. Mouth: no lip lesions, mucus membranes moist. Cardiovascular: regular rate and rhythm with normal S1S2, no murmur Lungs: Respirations even, regular, and unlabored on room air. Lungs CTA bilaterally, no rhonchi, no rales, no wheezing, and no accessory muscle usage. Abdominal: soft, nontender to palpation, no guarding, no appreciable organomegaly Ext: ROM intact. No gross muscle atrophy, no edema, no contractures. Left foot postsurgical dressing intact. Neuro: Speech clear, face symmetrical and CN II-XII grossly intact with no noted focal neuro deficits. Psych: Alert and oriented to person, place, time, and situation. Appropriate and pleasant affect. - Labs CBC & Chem 7: 02/17/21 05:09 02/17/21 05:09 Labs: Abnormal Lab Results - Last 24 Hours (Table) 02/16/21 02/16/21 02/17/21 Range/Units 16:37 21:04 05:09 WBC 14.30 H (4.50-10.00) X 10*3/uL RBC 3.50 L (4.10-5.20) X 10*6/uL Hgb 9.1 L (12.0-15.0) g/dL Hct 28.5 L (37.2-46.3) % MCH 26.0 L (27.0-32.0) pg MCHC 31.9 L (32.0-37.0) g/dL RDW 15.3 H (11.5-14.5) % Plt Count 489 H (140-440) X 10*3/uL Immature Gran # 0.11 H (0.00-0.04) X 10*3/uL Neutrophils # 12.81 H (1.80-7.70) X 10*3/uL Lymphocytes # 0.83 L (0.90-5.00) X 10*3/uL Eosinophils # 0 L (0.04-0.35) X 10*3/uL Potassium (3.5-5.5) mmol/L BUN (9.0-27.0) mg/dL Creatinine (0.6-1.5) mg/dL Est GFR (CKD-EPI)AfAm (60.0-200.0) Est GFR (CKD-EPI)NonAf (60.0-200.0) BUN/Creatinine Ratio (12.00-20.00) Ratio Glucose (70-110) mg/dL POC Glucose (mg/dL) 393 H 259 H (75-99) mg/dL Calcium (8.7-10.3) mg/dL Total Protein (6.2-8.2) g/dL Albumin (3.80-4.90) g/dL Albumin/Globulin Ratio (1.60-3.17) g/dL 02/17/21 02/17/21 02/17/21 Range/Units 05:09 07:24 11:34 WBC (4.50-10.00) X 10*3/uL RBC (4.10-5.20) X 10*6/uL Hgb (12.0-15.0) g/dL Hct (37.2-46.3) % MCH (27.0-32.0) pg MCHC (32.0-37.0) g/dL RDW (11.5-14.5) % Plt Count (140-440) X 10*3/uL Immature Gran # (0.00-0.04) X 10*3/uL Neutrophils # (1.80-7.70) X 10*3/uL Lymphocytes # (0.90-5.00) X 10*3/uL Eosinophils # (0.04-0.35) X 10*3/uL Potassium 5.9 H (3.5-5.5) mmol/L BUN 112.0 H* (9.0-27.0) mg/dL Creatinine 2.7 H (0.6-1.5) mg/dL Est GFR (CKD-EPI)AfAm 21.5 L (60.0-200.0) Est GFR (CKD-EPI)NonAf 18.5 L (60.0-200.0) BUN/Creatinine Ratio 41.48 H (12.00-20.00) Ratio Glucose 146 H (70-110) mg/dL POC Glucose (mg/dL) 150 H 199 H (75-99) mg/dL Calcium 8.2 L (8.7-10.3) mg/dL Total Protein 5.7 L (6.2-8.2) g/dL Albumin 3.00 L (3.80-4.90) g/dL Albumin/Globulin Ratio 1.11 L (1.60-3.17) g/dL Microbiology - Last 24 Hours (Table) 02/12/21 16:35 Blood Culture - Preliminary Blood No Growth after 96 hours 02/12/21 16:35 Blood Culture - Preliminary Blood No Growth after 96 hours Assessment and Plan Assessment: Acute kidney injury- -likely secondary from vancomycin. Currently patient has renal biopsy pending. Workup C-ANCA, P-ANCA, and anti-GBM antibodies are negative patient's renal function continues to remain stable at this time nephrology team is also fo llowing awaiting final biopsy results Hyperkalemia -Secondary to acute kidney injury. Patient's potassium is currently stable. Nephrology team following. One dose of keyexelate has been ordered. Compensated Metabolic acidosis -Renal Cr function now stable at 2.7 -Renal and bladder ultrasound negative for abnormalities. -Urinalysis negative for infection. -Urine eosinophils negative -Urine protein to creatinine ratio normal findings. Urine protein and urine creatinine normal findings. -Nephrology following with patient prednisone 30 mg twice daily for treatment of possible interstitial nephritis and sodium bicarb tablets . -ANAC and anti-GBM antibodies negative KRANTHI positive Status post renal biopsy. -Avoid nephrotoxic medications. -Hyperkalemia and hypocalcemia Metabolic acidosis secondary to acute kidney injury: Resolved, continue oral bicarbonate Acute respiratory failure with hypoxia Extensive Bilateral Pneumonia Elevated d-dimer accompanied by chest pain and shortness of breath, PE and DVT ruled out -CT chest was completed showing pleural effusions with bilateral extensive pneumonia with atelectasis and lower lobes and paratracheal lymph nodes, f indings possibly related to CHF or ARDS. -COVID PCR negative -CXR revealing LLL pneumonia. -Additional antibiotics added at this time: Zosyn and doxycycline -D-dimer is 6.04. -Heparin infusion initiated and VQ scan completed. VQ scan was negative, heparin infusion discontinued. -Bilateral lower extremity Dopplers completed negative for DVTs. -Pulmonology following, appreciate recommendations Continues on oxygen, down to 40 years Cellulitis of the left foot with an infected puncture wound to the plantar aspect of the third toe, currently status post debridement, I&D and third toe amputation by Dr. Hammonds on 02/06/21 Severe sepsis without septic shock -Treated with aggressive IV fluid hydration and antibiotics. -Lactic acid was normal. -Blood culture negative -Wound cultures positive for staph aureus -Infectious disease and vascular surgery following -IV antibiotics: Daptomycin, doxycycline, and Zosyn Severe frontal headache, now resolved. -Computed tomography scan in the ER showed no acute findings negative for acute intercranial process. Type 2 diabetes insulin-dependent diabetes mellitus -Hold Glucophage and placed on glycemic protocol with sliding scale. -Levemir increased to 10 units twice daily secondary to hyperglycemia likely resulting from steroid use. -Hemoglobin A1c 8.1%. -Heart healthy and carb consistent diet. Disposition: Pending clinical progression, pending renal biopsy results. Treatment plan discussed with the patient and her family at bedside. (1) Acute renal failure Current Visit: Yes Status: Acute Code(s): N17.9 - ACUTE KIDNEY FAILURE, UNSPECIFIED SNOMED Code(s): 86879832 (2) Cellulitis Current Visit: Yes Status: Acute Code(s): L03.90 - CELLULITIS, UNSPECIFIED SNOMED Code(s): 000634199 (3) Headache Current Visit: Yes Status: Acute Code(s): R51.9 - HEADACHE, UNSPECIFIED SNOMED Code(s): 71985108 (4) Sepsis Current Visit: Yes Status: Acute Code(s): A41.9 - SEPSIS, UNSPECIFIED ORGANISM SNOMED Code(s): 02487837
[2021-02-17] MEDS ORDERED: SODIUM POLYSTYRENE SULFONATE 15 GM/60 ML BOTTLE PO ONE (15:59)
[2021-02-17] MEDS: ACETAMINOPHEN TAB 325 MG TAB PO PRN (16:17)
[2021-02-17] MEDS: DAPTOmycin 500 MG in SODIUM CHLORIDE 0.9% 50 ML IVPB SCH (16:18)
[2021-02-17 16:41] LABS: Glucose,Whole Blood 409 mg/dL (75-99)
--- NOTE | 2021-02-17 17:13 | PN ---
PROGRESS NOTE DATE OF SERVICE: 02/17/2021 REASON FOR FOLLOWUP: Left foot abscess and cellulitis. INTERVAL HISTORY: The patient is afebrile. The patient is breathing comfortably. The patient denies having any chest pain. Occasional cough. No nausea, no vomiting, no abdominal pain or diarrhea. PHYSICAL EXAMINATION: Blood pressure is 155/71 with a pulse of 87, temperature 98.6. She is 96% on 4 L nasal cannula. GENERAL DESCRIPTION: General description is a middle-aged female lying in bed in no distress. RESPIRATORY SYSTEM: Unlabored breathing. Decreased intensity of breath sounds. No wheeze. HEART: S1, S2. Regular rate and rhythm. ABDOMEN: Soft. No tenderness. LAB DATA: Hemoglobin is 9.9, white count 14.30, BUN of 112, creatinine 2.7. DIAGNOSTIC IMPRESSION AND PLAN: Patient with left foot abscess and cellulitis, status post drainage. Culture with MSSA. Patient is covered with daptomycin. Continue local wound care with Santyl. Plan of care was discussed with the patient's as well as with the vascular surgeon. MMODL / IJN: [id number] /
[2021-02-17 20:59] LABS: Glucose,Whole Blood 333 mg/dL (75-99)
[2021-02-17] MEDS: BENZONATATE 100 MG CAP PO PRN (21:04)
[2021-02-18 07:43] LABS: Glucose,Whole Blood 236 mg/dL (75-99)
[2021-02-18] MEDS: INSULIN DETEMIR (LEVEMIR) 100 UNIT/ML SYR SQ SCH ×2 (07:57→22:54)
[2021-02-18] MEDS: FOLIC ACID 1 MG TAB PO SCH (07:58)
[2021-02-18] MEDS: SODIUM BICARBONATE TAB 650 MG TAB PO SCH ×4 (07:58→22:54)
[2021-02-18] MEDS: PREGABALIN 75 MG CAP PO SCH ×2 (07:58→22:54)
[2021-02-18] MEDS: FAMOTIDINE 20 MG TAB PO SCH (07:58)
[2021-02-18] MEDS: INSULIN ASPART (NovoLOG) 100 UNIT/ML VIAL SQ SCH ×7 (07:58→22:52)
[2021-02-18] MEDS: CYANOCOBALAMIN 500 MCG TAB PO SCH (07:58)
[2021-02-18] MEDS: DOXYCYCLINE 100 MG CAP PO SCH ×2 (07:59→22:55)
[2021-02-18] MEDS: predniSONE 10 MG TAB PO SCH (07:59)
[2021-02-18] MEDS: FUROSEMIDE 10 MG/ML 10 ML VIAL IV SCH ×2 (07:59→22:51)
[2021-02-18] MEDS: amLODIPine 5 MG TAB PO SCH (07:59)
[2021-02-18] MEDS: ALBUTEROL NEBULIZED 2.5 MG/3 ML INHALATION PRN ×2 (08:32→19:02)
--- NOTE | 2021-02-18 09:13 | P.PN ---
Subjective Patient is seen in follow-up for acute kidney injury. She is being treated for left foot infection and underwent amputation of the third toe. She is on IV antibiotics. Also on IV Lasix for edema. Has a Magallanes catheter. Good urine output. No vomiting or diarrhea. Oral intake is good. Vital signs are stable. General: The patient appeared well nourished and normally developed. HEENT: Head exam is unremarkable. LUNGS: Breath sounds decreased. HEART: Rate and Rhythm are regular. ABDOMEN: Soft, obese. EXTREMITITES: 2+ edema. No drainage noted. Objective - Vital Signs Vital signs: Vital Signs Temp 98.0 F 02/18/21 01:20 Pulse 72 02/18/21 08:15 Resp 19 02/18/21 01:20 BP 169/79 02/18/21 01:20 Pulse Ox 96 02/18/21 01:20 Intake & Output 02/17/21 02/18/21 02/18/21 18:59 06:59 18:59 Output Total 2004 1000 Balance -2004 Output: Urine 2004 1000 Other: Voiding Method Indwelling Catheter Indwelling Catheter - Labs CBC & Chem 7: 02/17/21 05:09 02/17/21 05:09 Labs: Abnormal Lab Results - Last 24 Hours (Table) 02/17/21 02/17/21 02/17/21 Range/Units 05:09 05:09 11:34 WBC 14.30 H (4.50-10.00) X 10*3/uL RBC 3.50 L (4.10-5.20) X 10*6/uL Hgb 9.1 L (12.0-15.0) g/dL Hct 28.5 L (37.2-46.3) % MCH 26.0 L (27.0-32.0) pg MCHC 31.9 L (32.0-37.0) g/dL RDW 15.3 H (11.5-14.5) % Plt Count 489 H (140-440) X 10*3/uL Immature Gran # 0.11 H (0.00-0.04) X 10*3/uL Neutrophils # 12.81 H (1.80-7.70) X 10*3/uL Lymphocytes # 0.83 L (0.90-5.00) X 10*3/uL Eosinophils # 0 L (0.04-0.35) X 10*3/uL Potassium 5.9 H (3.5-5.5) mmol/L BUN 112.0 H* (9.0-27.0) mg/dL Creatinine 2.7 H (0.6-1.5) mg/dL Est GFR (CKD-EPI)AfAm 21.5 L (60.0-200.0) Est GFR (CKD-EPI)NonAf 18.5 L (60.0-200.0) BUN/Creatinine Ratio 41.48 H (12.00-20.00) Ratio Glucose 146 H (70-110) mg/dL POC Glucose (mg/dL) 199 H (75-99) mg/dL Calcium 8.2 L (8.7-10.3) mg/dL Total Protein 5.7 L (6.2-8.2) g/dL Albumin 3.00 L (3.80-4.90) g/dL Albumin/Globulin Ratio 1.11 L (1.60-3.17) g/dL 02/17/21 02/17/21 02/18/21 Range/Units 16:39 20:58 07:41 WBC (4.50-10.00) X 10*3/uL RBC (4.10-5.20) X 10*6/uL Hgb (12.0-15.0) g/dL Hct (37.2-46.3) % MCH (27.0-32.0) pg MCHC (32.0-37.0) g/dL RDW (11.5-14.5) % Plt Count (140-440) X 10*3/uL Immature Gran # (0.00-0.04) X 10*3/uL Neutrophils # (1.80-7.70) X 10*3/uL Lymphocytes # (0.90-5.00) X 10*3/uL Eosinophils # (0.04-0.35) X 10*3/uL Potassium (3.5-5.5) mmol/L BUN (9.0-27.0) mg/dL Creatinine (0.6-1.5) mg/dL Est GFR (CKD-EPI)AfAm (60.0-200.0) Est GFR (CKD-EPI)NonAf (60.0-200.0) BUN/Creatinine Ratio (12.00-20.00) Ratio Glucose (70-110) mg/dL POC Glucose (mg/dL) 409 H 333 H 236 H (75-99) mg/dL Calcium (8.7-10.3) mg/dL Total Protein (6.2-8.2) g/dL Albumin (3.80-4.90) g/dL Albumin/Globulin Ratio (1.60-3.17) g/dL Microbiology - Last 24 Hours (Table) 02/12/21 16:35 Blood Culture - Preliminary Blood No Growth after 120 hours 02/12/21 16:35 Blood Culture - Preliminary Blood No Growth after 120 hours Assessment and Plan Plan: Assessment: 1. 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 Kidney biopsy also revealed acute tubular injury as well as diabetic changes. Creatinine peaked at 3.3 this admission and was down to 2.7 yesterday. Baseline creatinine near 1. Urine eosinophils negative. 2. Hyperkalemia secondary to hyperglycemia. 3. Elevated BUN secondary to acute kidney injury as well as steroids. No evidence of GI bleed. 4. Left foot cellulitis with culture positive for staph aureus. Status post amputation of the left third toe. On antibiotics. 5. Benign hypertension. Exacerbated by steroids. 6. Diabetes mellitus. 7. Volume overload. Plan: Continue with treating the infection. Antibiotics per infectious disease. Decrease dose of prednisone. Maintain IV Lasix. Avoid nephrotoxins. Continue to monitor renal function and urine output. Morning labs pending. Add hydralazine. To be held for systolic blood pressure less than 120.
[2021-02-18] MEDS: HYDROCORTISONE 1% CREAM 454 GM JAR TOPICAL SCH ×3 (10:20→23:52)
[2021-02-18 11:24] LABS: Glucose,Whole Blood 296 mg/dL (75-99)
[2021-02-18 11:42] LABS: Basophils # (A) 0 X 10*3/uL (0.00-0.10); Basophils % (A) 0 %; Eosinophils # (A) 0 X 10*3/uL (0.04-0.35); Eosinophils % (A) 0 %; HCT 28.4 % (37.2-46.3); HGB 8.8 g/dL (12.0-15.0); Lymphocytes # (A) 0.78 X 10*3/uL (0.90-5.00); Lymphocytes % (A) 5.7 %; MCH 25.7 pg (27.0-32.0); MCV 82.8 fL (80.0-97.0); Mean Platelet Volume 10.1 fL (9.5-12.2); Monocytes # (A) 0.53 X 10*3/uL (0.20-1.00); Monocytes % (A) 3.8 %; Neutrophils # (A) 12.35 X 10*3/uL (1.80-7.70); Neutrophils % (A) 89.5 %; Platelet Count 458 X 10*3/uL (140-440); RBC 3.43 X 10*6/uL (4.10-5.20); RDW 15.4 % (11.5-14.5)
[2021-02-18 12:23] LABS: Anion Gap 9.4 mmol/L (4.00-12.00); BUN/Creat Ratio 49.57 Ratio (12.00-20.00); Calcium 8.6 mg/dL (8.7-10.3); Carbon Dioxide 23.6 mmol/L (21.6-31.8); Non-African American GFR(CKD) 22.5 (60.0-200.0)
[2021-02-18] MEDS ORDERED: SODIUM POLYSTYRENE SULFONATE 15 GM/60 ML BOTTLE PO STA (14:48)
--- NOTE | 2021-02-18 14:51 | P.PN ---
Subjective Progress Note Date: 02/18/21 Principal diagnosis: Patient is a 61-year-old female with a past medical history of insulin-dependent diabetes mellitus. She presented to the hospital on 01/31/21 with a chief complaint of left foot infection. She was found to have significant leukocytosis with WBC count of 25.2. X-ray left foot revealing mild soft tissue swelling calcaneal spurring no acute bony abnormality with no signs of osteomyelitis. CT left foot revealing prominent generalized soft tissue swelling with no discrete abscess identified. She underwent debridement, I and D and third toe amputation by Dr. Hammonds on 02/06/21. She was receiving IV antibiotic vancomycin, her wound cultures came back positive for Staphylococcus aureus and antibiotic changed to cefazolin. On 02/09/21 patient was discovered to have petechiae rash covering lower extremities and trunk along with lab findings indicative of acute kidney injury with BUN of 50.0, creatinine of 2.1, and GFR of 25.1 which was significantly elevated from baseline creatinine of 0.7. Patient received IV hydration with no improvement and on 02/10/21 renal functioning worsening with IV hydration with BUN of 62, creatinine 2.60, and GFR of 19. Nephrology was consulted and renal ultrasound was completed showing no suspicious acute changes reported with right kidney described as appearing enlarged and collecting systems slightly dilated and left kidney also enlarged with isoechoic area 2.2 x 2.8 x 2.3 cm. On the evening of 02/10/21 received called to bedside with patient's reports of sudden onset shortness of breath and chest pain. With THIEN, petechiae rash, chest pain, and new onset shortness of breath, this was concerning for ALLERGIC interstitial nephritis, cephalexin was discontinued and patient given Solu-Medrol 125 mg IVP, Benadryl 50 mg IVP, and Pepcid 20 mg IVP at this time. Cardiac workup then completed which was negative for acute abnormalities. ABG revealed compensated metabolic acidosis with pH of 7.410, pCO2 of 30.9, and PaO2 of 62.2 with a bicarb of 19.6. D-dimer elevated at 6.02. Patient placed on heparin infusion, with V/Q scan and Dopplers to be completed. Bilateral lower extremity Dopplers were negative for DVT and VQ scan showing low probability lung VQ scan. Heparin infusion was discontinued. Patient's condition improved by morning, patient states chest pain and shortness of breath subsided. However she continued to have worsening renal function with BUN of 69, creatinine 2.66, and GFR of 19. Nephrology evaluated patient and at this time they decided to hold off on administering further steroids. Infectious disease evaluated and started patient on daptomycin since discon tinuation of cefazolin and current renal function. On 02/12/21 patient was found to be in significant respiratory distress with complaints of generalized body aches and pains, chills, and had elevated temp of 100.5F. Patient was swabbed for Covid 19 virus which was negative. Consult placed to pulmonology. A repeat chest x-ray was completed showing left effusion with adjacent atelectasis/pneumonia and at this time Zosyn and doxycycline were added to patient's current antibiotic regimen with daptomycin. Throughout the day patient's condition continued to worsen and she went from 2 L O2 via nasal cannula 2 requiring 15 L O2 via nonrebreather. STAT CT chest was completed showing pleural effusions with bilateral extensive pneumonia with atelectasis and lower lobes and paratracheal lymph nodes, findings possibly related to CHF or ARDS. Patient given 125 mg Solu-Medrol IVP and additional labs placed including ANAC and anti-GBM antibodies. Nephrology place patient on prednisone 30 mg twice daily and sodium bicarb tablets 650 mg 4 times daily. Renal function continuing to decline with BUN 88, creatinine of 3.31, and GFR 15. Nephrology has consulted IR for renal biopsy. Plans for renal biopsy to be completed in the next 24-48 hours. 02/17: Patient seen and examined. She is stable she denies any nausea vomiting fever or chills. Her renal biopsy currently still pending O respiratory issues at this time. Patient remains on 4 L nasal cannula Patient is a 61-year-old female with a past medical history of insulin-dependent diabetes mellitus. She presented to the hospital on 01/31/21 with a chief complaint of left foot infection. She was found to have significant leukocytosis with WBC count of 25.2. X-ray left foot revealing mild soft tissue swelling calcaneal spurring no acute bony abnormality with no signs of osteomyelitis. CT left foot revealing prominent generalized soft tissue swelling with no discrete abscess identified. She underwent debridement, I and D and third toe amputation by Dr. Hammonds on 02/06/21. She was receiving IV antibiotic vancomycin, her wound cultures came back positive for Staphylococcus aureus and antibiotic changed to cefazolin. On 02/09/21 patient was discovered to have petechiae rash covering lower extremities and trunk along with lab findings indicative of acute kidney injury with BUN of 50.0, creatinine of 2.1, and GFR of 25.1 which was significantly elevated from baseline creatinine of 0.7. Pat ient received IV hydration with no improvement and on 02/10/21 renal functioning worsening with IV hydration with BUN of 62, creatinine 2.60, and GFR of 19. Nephrology was consulted and renal ultrasound was completed showing no suspicious acute changes reported with right kidney described as appearing enlarged and collecting systems slightly dilated and left kidney also enlarged with isoechoic area 2.2 x 2.8 x 2.3 cm. On the evening of 02/10/21 received called to bedside with patient's reports of sudden onset shortness of breath and chest pain. With THIEN, petechiae rash, chest pain, and new onset shortness of breath, this was concerning for ALLERGIC interstitial nephritis, cephalexin was discontinued and patient given Solu-Medrol 125 mg IVP, Benadryl 50 mg IVP, and Pepcid 20 mg IVP at this time. Cardiac workup then completed which was negative for acute abnormalities. ABG revealed compensated metabolic acidosis with pH of 7.410, pCO2 of 30.9, and PaO2 of 62.2 with a bicarb of 19.6. D-dimer elevated at 6.02. Patient placed on heparin infusion, with V/Q scan and Dopplers to be completed. Bilateral lower extremity Dopplers were negative for DVT and VQ scan showing low probability lung VQ scan. Heparin infusion was discontinued. Patient's condition improved by morning, patient states chest pain and shortness of breath subsided. However she continued to have worsening renal function with BUN of 69, creatinine 2.66, and GFR of 19. Nephrology evaluated patient and at this time they decided to hold off on administering further steroids. Infectious disease evaluated and started patient on daptomycin since discontinuation of cefazolin and current renal function. On 02/12/21 patient was found to be in significant respiratory distress with complaints of generalized body aches and pains, chills, and had elevated temp of 100.5F. Patient was swabbed for Covid 19 virus which was negative. Consult placed to pulmonology. A repeat chest x-ray was completed showing left effusion with adjacent atelectasis/pneumonia and at this time Zosyn and doxycycline were added to patient's current antibiotic regimen with daptomycin. Throughout the day patient's condition continued to worsen and she went from 2 L O2 via nasal cannula 2 requiring 15 L O2 via nonrebreather. STAT CT chest was completed showing pleural effusions with bilateral extensive pneumonia with atelectasis and lower lobes and paratracheal lymph nodes, findings possibly related to CHF or ARDS. Patient given 125 mg Solu-Medrol IVP and additional labs placed including ANAC and anti-GBM antibodies. Nephrology place patient on prednisone 30 mg twice daily and sodium bicarb tablets 650 mg 4 times daily. Renal fu nction continuing to decline with BUN 88, creatinine of 3.31, and GFR 15. Nephrology has consulted IR for renal biopsy. Plans for renal biopsy to be completed in the next 24-48 hours. 02/18: Patient seen and examined. Respiratory status stable. She denies any nausea vomiting no fevers no chills. Patient's renal biopsy results are currently still pending. Objective - Vital Signs Vital signs: Vital Signs Temp 97.5 F L 02/18/21 09:00 Pulse 76 02/18/21 09:00 Resp 18 02/18/21 09:00 BP 170/72 02/18/21 09:00 Pulse Ox 96 02/18/21 09:00 Intake & Output 02/17/21 02/18/21 02/18/21 18:59 06:59 18:59 Output Total 2004 1000 Balance -2004 -999 Output: Urine 2004 1000 Other: Voiding Method Indwelling Catheter Indwelling Catheter - Exam General: Nontoxic, no distress and appears stated age. On 4 L of oxygen Derm: Skin warm and dry, normal coloration for ethnicity. Head: Atraumatic, normocephalic and symmetric. Eyes: EOMs intact, no lid lag, and anicteric sclera. Mouth: no lip lesions, mucus membranes moist. Cardiovascular: regular rate and rhythm with normal S1S2, no murmur Lungs: Respirations even, regular, and unlabored on room air. Lungs CTA bilaterally, no rhonchi, no rales, no wheezing, and no accessory muscle usage. Abdominal: soft, nontender to palpation, no guarding, no appreciable organ omegaly Ext: ROM intact. No gross muscle atrophy, no edema, no contractures. Left foot postsurgical dressing intact. Neuro: Speech clear, face symmetrical and CN II-XII grossly intact with no noted focal neuro deficits. Psych: Alert and oriented to person, place, time, and situation. Appropriate and pleasant affect. - Labs CBC & Chem 7: 02/18/21 06:50 02/18/21 06:50 Labs: Abnormal Lab Results - Last 24 Hours (Table) 02/17/21 02/17/21 02/18/21 Range/Units 16:39 20:58 06:50 WBC 13.80 H (4.50-10.00) X 10*3/uL RBC 3.43 L (4.10-5.20) X 10*6/uL Hgb 8.8 L (12.0-15.0) g/dL Hct 28.4 L (37.2-46.3) % MCH 25.7 L (27.0-32.0) pg MCHC 31.0 L (32.0-37.0) g/dL RDW 15.4 H (11.5-14.5) % Plt Count 458 H (140-440) X 10*3/uL Immature Gran # 0.14 H (0.00-0.04) X 10*3/uL Neutrophils # 12.35 H (1.80-7.70) X 10*3/uL Lymphocytes # 0.78 L (0.90-5.00) X 10*3/uL Eosinophils # 0 L (0.04-0.35) X 10*3/uL Potassium (3.5-5.5) mmol/L BUN (9.0-27.0) mg/dL Creatinine (0.6-1.5) mg/dL Est GFR (CKD-EPI)AfAm (60.0-200.0) Est GFR (CKD-EPI)NonAf (60.0-200.0) BUN/Creatinine Ratio (12.00-20.00) Ratio Glucose (70-110) mg/dL POC Glucose (mg/dL) 409 H 333 H (75-99) mg/dL Calcium (8.7-10.3) mg/dL 02/18/21 02/18/21 02/18/21 Range/Units 06:50 07:41 11:22 WBC (4.50-10.00) X 10*3/uL RBC (4.10-5.20) X 10*6/uL Hgb (12.0-15.0) g/dL Hct (37.2-46.3) % MCH (27.0-32.0) pg MCHC (32.0-37.0) g/dL RDW (11.5-14.5) % Plt Count (140-440) X 10*3/uL Immature Gran # (0.00-0.04) X 10*3/uL Neutrophils # (1.80-7.70) X 10*3/uL Lymphocytes # (0.90-5.00) X 10*3/uL Eosinophils # (0.04-0.35) X 10*3/uL Potassium 6.0 H (3.5-5.5) mmol/L BUN 114.0 H* (9.0-27.0) mg/dL Creatinine 2.3 H (0.6-1.5) mg/dL Est GFR (CKD-EPI)AfAm 26.1 L (60.0-200.0) Est GFR (CKD-EPI)NonAf 22.5 L (60.0-200.0) BUN/Creatinine Ratio 49.57 H (12.00-20.00) Ratio Glucose 245 H (70-110) mg/dL POC Glucose (mg/dL) 236 H 296 H (75-99) mg/dL Calcium 8.6 L (8.7-10.3) mg/dL Microbiology - Last 24 Hours (Table) 02/12/21 16:35 Blood Culture - Preliminary Blood No Growth after 120 hours 02/12/21 16:35 Blood Culture - Preliminary Blood No Growth after 120 hours Assessment and Plan Assessment: Acute kidney injury- -likely secondary from vancomycin. Currently patient has renal biopsy pending. Workup C-ANCA, P-ANCA, and anti-GBM antibodies are negative patient's renal function continues to remain stable at this time nephrology team is also following awaiting final biopsy results Hyperkalemia -Secondary to acute kidney injury, hyperglycemia.. Will continue with insulin treatment and Kayexalate. Nephrology team is following Compensated Metabolic acidosis -Renal Cr function now stable at 2.3 -Renal and bladder ultrasound negative for abnormalities. -Urinalysis negative for infection. -Urine eosinophils negative -Urine protein to creatinine ratio normal findings. Urine protein and urine creatinine normal findings. -Nephrology following with patient prednisone 20 mg twice daily for treatment of possible interstitial nephritis and sodium bicarb tablets . -ANAC and anti-GBM antibodies negative KRANTHI positive Status post renal biopsy. -Avoid nephrotoxic medications. -Hyperkalemia and hypocalcemia Metabolic acidosis secondary to acute kidney injury: Resolved, continue oral bicarbonate Acute respiratory failure with hypoxia Extensive Bilateral Pneumonia Elevated d-dimer accompanied by chest pain and shortness of breath, PE and DVT ruled out -CT chest was completed showing pleural effusions with bilateral extensive pneumonia with atelectasis and lower lobes and paratracheal lymph nodes, findings possibly related to CHF or ARDS. -COVID PCR negative -CXR revealing LLL pneumonia. -Additional antibiotics added at this time: Zosyn and doxycycline -D-dimer is 6.04. -Heparin infusion initiated and VQ scan completed. VQ scan was negative, heparin infusion discontinued. -Bilateral lower extremity Dopplers completed negative for DVTs. -Pulmonology following, appreciate recommendations Continues on oxygen, down to 40 years Cellulitis of the left foot with an infected puncture wound to the plantar aspect of the third toe, currently status post debridement, I&D and third toe amputation by Dr. Hammonds on 02/06/21 Severe sepsis without septic shock -Treated with aggressive IV fluid hydration and antibiotics. -Lactic acid was normal. -Blood culture negative -Wound cultures positive for staph aureus -Infectious disease and vascular surgery following -IV antibiotics: Daptomycin, doxycycline, Severe frontal headache, now resolved. -Computed tomography scan in the ER showed no acute findings negative for acute intercranial process. Type 2 diabetes insulin-dependent diabetes mellitus -Patient continues to have significant hyperglycemia issues. Will increase patient's Levemir 16 units twice a day and will also increase patient's prandial insulin to 6 units with meals including sliding scale -Hemoglobin A1c 8.1%. -Heart healthy and carb consistent diet. Disposition: Pending clinical progression, pending renal biopsy results. Treatment plan discussed with the patient and her family at bedside. (1) Acute renal failure Current Visit: Yes Status: Acute Code(s): N17.9 - ACUTE KIDNEY FAILURE, UNSPECIFIED SNOMED Code(s): 76877792 (2) Cellulitis Current Visit: Yes Status: Acute Code(s): L03.90 - CELLULITIS, UNSPECIFIED SNOMED Code(s): 108598495 (3) Headache Current Visit: Yes Status: Acute Code(s): R51.9 - HEADACHE, UNSPECIFIED SNOMED Code(s): 74088095 (4) Sepsis Current Visit: Yes Status: Acute Code(s): A41.9 - SEPSIS, UNSPECIFIED ORGANISM SNOMED Code(s): 95221159
[2021-02-18] MEDS: hydrALAZINE HCL 25 MG TAB PO SCH ×2 (15:33→22:54)
[2021-02-18 15:40] LABS: African American GFR (CKD) 26.1 (60.0-200.0)
[2021-02-18 16:34] LABS: Glucose,Whole Blood 307 mg/dL (75-99)
[2021-02-18 21:01] LABS: Protein, Total 6.1 g/dL (6.2-8.2)
[2021-02-18 21:10] LABS: Glucose,Whole Blood 342 mg/dL (75-99)
[2021-02-18 21:44] LABS: Hepatitis A Antibody IgM Non-Reactive (Non-Reactive); Hepatitis B Core IgM Non-Reactive (Non-Reactive); Hepatitis B Surface Antigen Non-Reactive (Non-Reactive); Hepatitis C IgG Antibody Non-Reactive (Non-Reactive)
[2021-02-18] MEDS: ACETAMINOPHEN TAB 325 MG TAB PO PRN (22:53)
[2021-02-18] MEDS: ALPRAZolam 0.5 MG TAB PO PRN (22:54)
[2021-02-18] MEDS: predniSONE 20 MG TAB PO SCH (22:54)
[2021-02-18] MEDS: BENZONATATE 100 MG CAP PO PRN (22:54)
[2021-02-18] MEDS: BENZOCAINE/MENTHOL LOZENG 1 EACH LOZENGE MUCOUS MEM PRN (22:54)
[2021-02-18] MEDS: COLLAGENASE 250 UNIT/GM OINTMENT 30 GM TUBE TOPICAL SCH (22:59)
[2021-02-19 06:57] LABS: Glucose,Whole Blood 213 mg/dL (75-99)
--- NOTE | 2021-02-19 07:18 | PN ---
PROGRESS NOTE DATE OF SERVICE: 02/18/2021 REASON FOR FOLLOWUP: Left foot abscess . INTERVAL HISTORY: Patient is afebrile. She is breathing comfortably. Denies any chest pain, shortness of breath. No cough. No abdominal pain. No worsening pain to the right foot. EXAMINATION: Blood pressure 102/75 with a pulse of 103. Temperature 98, she is 98% on 4 L nasal cannula. General description is a middle-aged female lying in bed in no distress. Respiratory system: Unlabored breathing. Clear to auscultation. Decreased breath sounds at the base. No wheeze. Heart S1, S2. Regular rate and rhythm. Abdomen: Soft. No tenderness. Extremities: Lower extremity feet. Left foot is currently dressed. No drainage on the dressing. LABS: Hemoglobin is 8.8, white count 13.80, creatinine is 2.3. DIAGNOSTIC IMPRESSION AND PLAN: Patient with left foot abscess cellulitis status post amputation of left third toe. Culture positive for MSSA. The patient is covered with daptomycin and there is concern for possible interstitial nephritis secondary to . Continue supportive care. MMODL / IJN: [id number] /
[2021-02-19] MEDS: DOXYCYCLINE 100 MG CAP PO SCH (08:24)
[2021-02-19] MEDS: SODIUM BICARBONATE TAB 650 MG TAB PO SCH ×4 (08:24→22:01)
[2021-02-19] MEDS: amLODIPine 5 MG TAB PO SCH (08:24)
[2021-02-19] MEDS: FOLIC ACID 1 MG TAB PO SCH (08:24)
[2021-02-19] MEDS: PREGABALIN 75 MG CAP PO SCH ×2 (08:24→22:03)
[2021-02-19] MEDS: predniSONE 20 MG TAB PO SCH (08:24)
[2021-02-19] MEDS: FAMOTIDINE 20 MG TAB PO SCH (08:24)
[2021-02-19] MEDS: INSULIN DETEMIR (LEVEMIR) 100 UNIT/ML SYR SQ SCH ×2 (08:24→22:01)
[2021-02-19] MEDS: hydrALAZINE HCL 25 MG TAB PO SCH ×3 (08:24→22:01)
[2021-02-19] MEDS: FUROSEMIDE 10 MG/ML 10 ML VIAL IV SCH ×2 (08:25→22:03)
[2021-02-19] MEDS: INSULIN ASPART (NovoLOG) 100 UNIT/ML VIAL SQ SCH ×7 (08:25→22:02)
[2021-02-19] MEDS: CYANOCOBALAMIN 500 MCG TAB PO SCH (08:25)
--- NOTE | 2021-02-19 08:52 | P.PN ---
Subjective Patient is seen in follow-up for acute kidney injury. She is being treated for left foot infection and underwent amputation of the third toe. She is on IV antibiotics. Also on IV Lasix for edema. Has a Magallanes catheter. Good urine output. No vomiting or diarrhea. Oral intake is good. Vital signs are stable. General: The patient appeared well nourished and normally developed. HEENT: Head exam is unremarkable. LUNGS: Breath sounds decreased. HEART: Rate and Rhythm are regular. ABDOMEN: Soft, obese. EXTREMITITES: 2+ edema. No drainage noted. Objective - Vital Signs Vital signs: Vital Signs Temp 97.7 F 02/19/21 07:47 Pulse 77 02/19/21 07:47 Resp 20 02/19/21 07:47 BP 155/78 02/19/21 07:47 Pulse Ox 96 02/19/21 07:47 Intake & Output 02/18/21 02/19/21 02/19/21 18:59 06:59 18:59 Intake Total 1080 600 Output Total 2000 1500 Balance -920 -900 Intake: Intake, IV Titration 600 Amount DAPTOmycin 500 mg In 100 Sodium Chloride 0.9% 50 ml @ 100 mls/hr IVPB Q48H [facility] Rx#:[id number] Lactated Ringers 1,000 ml 500 @ 0 mls/hr IV .[facility] Rx#:[id number] Oral 1080 Output: Urine 2000 1500 Other: Voiding Method Indwelling Catheter # Bowel Movements 2 - Labs CBC & Chem 7: 02/18/21 06:50 02/18/21 06:50 Labs: Abnormal Lab Results - Last 24 Hours (Table) 02/18/21 02/18/21 02/18/21 Range/Units 06:50 06:50 09:00 WBC 13.80 H (4.50-10.00) X 10*3/uL RBC 3.43 L (4.10-5.20) X 10*6/uL Hgb 8.8 L (12.0-15.0) g/dL Hct 28.4 L (37.2-46.3) % MCH 25.7 L (27.0-32.0) pg MCHC 31.0 L (32.0-37.0) g/dL RDW 15.4 H (11.5-14.5) % Plt Count 458 H (140-440) X 10*3/uL Immature Gran # 0.14 H (0.00-0.04) X 10*3/uL Neutrophils # 12.35 H (1.80-7.70) X 10*3/uL Lymphocytes # 0.78 L (0.90-5.00) X 10*3/uL Eosinophils # 0 L (0.04-0.35) X 10*3/uL Potassium 6.0 H (3.5-5.5) mmol/L BUN 114.0 H* (9.0-27.0) mg/dL Creatinine 2.3 H (0.6-1.5) mg/dL Est GFR (CKD-EPI)AfAm 26.1 L (60.0-200.0) Est GFR (CKD-EPI)NonAf 22.5 L (60.0-200.0) BUN/Creatinine Ratio 49.57 H (12.00-20.00) Ratio Glucose 245 H (70-110) mg/dL POC Glucose (mg/dL) (75-99) mg/dL Calcium 8.6 L (8.7-10.3) mg/dL Total Protein (PEP) 6.1 L (6.2-8.2) g/dL 02/18/21 02/18/21 02/18/21 Range/Units 11:22 16:33 21:03 WBC (4.50-10.00) X 10*3/uL RBC (4.10-5.20) X 10*6/uL Hgb (12.0-15.0) g/dL Hct (37.2-46.3) % MCH (27.0-32.0) pg MCHC (32.0-37.0) g/dL RDW (11.5-14.5) % Plt Count (140-440) X 10*3/uL Immature Gran # (0.00-0.04) X 10*3/uL Neutrophils # (1.80-7.70) X 10*3/uL Lymphocytes # (0.90-5.00) X 10*3/uL Eosinophils # (0.04-0.35) X 10*3/uL Potassium (3.5-5.5) mmol/L BUN (9.0-27.0) mg/dL Creatinine (0.6-1.5) mg/dL Est GFR (CKD-EPI)AfAm (60.0-200.0) Est GFR (CKD-EPI)NonAf (60.0-200.0) BUN/Creatinine Ratio (12.00-20.00) Ratio Glucose (70-110) mg/dL POC Glucose (mg/dL) 296 H 307 H 342 H (75-99) mg/dL Calcium (8.7-10.3) mg/dL Total Protein (PEP) (6.2-8.2) g/dL 02/19/21 Range/Units 06:56 WBC (4.50-10.00) X 10*3/uL RBC (4.10-5.20) X 10*6/uL Hgb (12.0-15.0) g/dL Hct (37.2-46.3) % MCH (27.0-32.0) pg MCHC (32.0-37.0) g/dL RDW (11.5-14.5) % Plt Count (140-440) X 10*3/uL Immature Gran # (0.00-0.04) X 10*3/uL Neutrophils # (1.80-7.70) X 10*3/uL Lymphocytes # (0.90-5.00) X 10*3/uL Eosinophils # (0.04-0.35) X 10*3/uL Potassium (3.5-5.5) mmol/L BUN (9.0-27.0) mg/dL Creatinine (0.6-1.5) mg/dL Est GFR (CKD-EPI)AfAm (60.0-200.0) Est GFR (CKD-EPI)NonAf (60.0-200.0) BUN/Creatinine Ratio (12.00-20.00) Ratio Glucose (70-110) mg/dL POC Glucose (mg/dL) 213 H (75-99) mg/dL Calcium (8.7-10.3) mg/dL Total Protein (PEP) (6.2-8.2) g/dL Microbiology - Last 24 Hours (Table) 02/12/21 16:35 Blood Culture - Final Blood No Growth after 144 hours 02/12/21 16:35 Blood Culture - Final Blood No Growth after 144 hours Assessment and Plan Plan: Assessment: 1. 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 Kidney biopsy also revealed acute tubular injury as well as diabetic changes. Creatinine peaked at 3.3 this admission - 2.3 yesterday. Baseline creatinine near 1. Urine eosinophils negative. No evidence of obstruction. 2. Hyperkalemia secondary to hyperglycemia. Also received Kayexalate. 3. Elevated BUN secondary to acute kidney injury as well as steroids. No evidence of GI bleed. 4. Left foot cellulitis with culture positive for staph aureus. Status post amputation of the left third toe. On antibiotics. 5. Benign hypertension. Exacerbated by steroids. 6. Diabetes mellitus. 7. Volume overload. Plan: Continue with treating the infection. Antibiotics per infectious disease. Further decrease dose of prednisone - will stop completely in the next 48 hours. Maintain IV Lasix. Avoid nephrotoxins. Continue to monitor renal function and urine output. Morning labs pending. Tight blood sugar control.
[2021-02-19 11:39] LABS: Glucose,Whole Blood 219 mg/dL (75-99)
[2021-02-19] MEDS: DAPTOmycin 500 MG in SODIUM CHLORIDE 0.9% 50 ML IVPB SCH (11:43)
[2021-02-19] MEDS: HYDROCORTISONE 1% CREAM 454 GM JAR TOPICAL SCH ×3 (11:44→22:05)
[2021-02-19 13:11] LABS: African American GFR (CKD) 27.5 (60.0-200.0); BUN/Creat Ratio 53.18 Ratio (12.00-20.00); Calcium 8.5 mg/dL (8.7-10.3); Magnesium 1.8 mg/dL (1.5-2.4); Non-African American GFR(CKD) 23.8 (60.0-200.0); Potassium 5.5 mmol/L (3.5-5.5)
[2021-02-19] MEDS: COLLAGENASE 250 UNIT/GM OINTMENT 30 GM TUBE TOPICAL SCH (14:24)
--- NOTE | 2021-02-19 14:49 | P.PN ---
Subjective Progress Note Date: 02/19/21 Principal diagnosis: Hospital course: Patient is a 61-year-old female with a past medical history of insulin-dependent diabetes mellitus. She presented to the hospital on 01/31/21 with a chief complaint of left foot infection. She was found to have significant leukocytosis with WBC count of 25.2. X-ray left foot revealing mild soft tissue swelling calcaneal spurring no acute bony abnormality with no signs of osteomyelitis. CT left foot revealing prominent generalized soft tissue swelling with no discrete abscess identified. She underwent debridement, I and D and third toe amputation by Dr. Hammonds on 02/06/21. She was receiving IV antibiotic vancomycin, her wound cultures came back positive for Staphylococcus aureus and antibiotic changed to cefazolin. On 02/09/21 patient was discovered to have petechiae rash covering lower extremities and trunk along with lab findings indicative of acute kidney injury with BUN of 50.0, creatinine of 2.1, and GFR of 25.1 which was significantly elevated from baseline creatinine of 0.7. Patient received IV hydration with no improvement and on 02/10/21 renal functioning worsening with IV hydration with BUN of 62, creatinine 2.60, and GFR of 19. Nephrology was consulted and renal ultrasound was completed showing no suspicious acute changes reported with right kidney described as appearing enlarged and collecting systems slightly dilated and left kidney also enlarged with isoechoic area 2.2 x 2.8 x 2.3 cm. On the evening of 02/10/21 received called to bedside with patient's reports of sudden onset shortness of breath and chest pain. With THIEN, petechiae rash, chest pain, and new onset shortness of breath, this was concerning for ALLERGIC interstitial nephritis, cephalexin was discontinued and patient given Solu-Medrol 125 mg IVP, Benadryl 50 mg IVP, and Pepcid 20 mg IVP at this time. Cardiac workup then completed which was negative for acute abnormalities. ABG revealed compensated metabolic acidosis with pH of 7.410, pCO2 of 30.9, and PaO2 of 62.2 with a bicarb of 19.6. D-dimer elevated at 6.02. Patient placed on heparin infusion, with V/Q scan and Dopplers to be completed. Bilateral lower extremity Dopplers were negative for DVT and VQ scan showing low probability lung VQ scan. Heparin infusion was discontinued. Patient's condition improved by morning, patient states chest pain and shortness of breath subsided. However she continued to have worsening renal function with BUN of 69, creatinine 2.66, and GFR of 19. Nephrology evaluated patient and at this time they decided to hold off on administering further steroids. Infectious disease evaluated and started patient on daptomycin since discontinuation of cefazolin and current renal function. On 02/12/21 patient was found to be in significant respiratory distress with complaints of generalized body aches and pains, chills, and had elevated temp of 100.5F. Patient was swabbed for Covid 19 virus which was negative. Consult placed to pulmonology. A repeat chest x-ray was completed showing left effusion with adjacent atelectasis/pneumonia and at this time Zosyn and doxycycline were added to lincoln pedro's current antibiotic regimen with daptomycin. Throughout the day patient's condition continued to worsen and she went from 2 L O2 via nasal cannula 2 requiring 15 L O2 via nonrebreather. STAT CT chest was completed showing pleural effusions with bilateral extensive pneumonia with atelectasis and lower lobes and paratracheal lymph nodes, findings possibly related to CHF or ARDS. Patient given 125 mg Solu-Medrol IVP and additional labs placed including ANAC and anti- GBM antibodies. Nephrology place patient on prednisone 30 mg twice daily and sodium bicarb tablets 650 mg 4 times daily. Renal function continuing to decline with BUN 88, creatinine of 3.31, and GFR 15. Nephrology has consulted IR for renal biopsy. 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 She denies shortness of breath but continues to be On 4 L of oxygen. No chest pain, no abdominal pain. Up in chair, family at bedside Objective - Vital Signs Vital signs: Vital Signs Temp 97.7 F 02/19/21 07:47 Pulse 77 02/19/21 07:47 Resp 20 02/19/21 07:47 BP 155/78 02/19/21 07:47 Pulse Ox 96 02/19/21 07:47 Intake & Output 02/18/21 02/19/21 02/19/21 18:59 06:59 18:59 Intake Total 1080 600 Output Total 2000 1500 Balance -920 -900 Intake: Intake, IV Titration 600 Amount DAPTOmycin 500 mg In 100 Sodium Chloride 0.9% 50 ml @ 100 mls/hr IVPB Q48H [facility] Rx#:[id number] Lactated Ringers 1,000 ml 500 @ 0 mls/hr IV .[facility] Rx#:[id number] Oral 1080 Output: Urine 2000 1500 Other: Voiding Method Indwelling Catheter # Bowel Movements 2 - Exam General: Nontoxic, no distress and appears stated age. On 4 L of oxygen Derm: Skin warm and dry, normal coloration for ethnicity. Head: Atraumatic, normocephalic and symmetric. Eyes: EOMs intact, no lid lag, and anicteric sclera. Mouth: no lip lesions, mucus membranes moist. Cardiovascular: regular rate and rhythm with normal S1S2, no murmur Lungs: Decreased breath sounds, no wheezing Abdominal: soft, nontender to palpation, no guarding, no appreciable organomegaly Ext: ROM intact. No gross muscle atrophy, no edema, no contractures. Neuro: Speech clear, face symmetrical and CN II-XII grossly intact with no noted focal neuro deficits. Psych: Alert and oriented to person, place, time, and situation. Appropriate and pleasant affect. - Labs CBC & Chem 7: 02/18/21 06:50 02/19/21 08:17 Labs: Abnormal Lab Results - Last 24 Hours (Table) 02/18/21 02/18/21 02/18/21 Range/Units 06:50 09:00 16:33 BUN (9.0-27.0) mg/dL Creatinine (0.6-1.5) mg/dL Est GFR (CKD-EPI)AfAm 26.1 L (60.0-200.0) Est GFR (CKD-EPI)NonAf (60.0-200.0) BUN/Creatinine Ratio (12.00-20.00) Ratio Glucose (70-110) mg/dL POC Glucose (mg/dL) 307 H (75-99) mg/dL Calcium (8.7-10.3) mg/dL Total Protein (PEP) 6.1 L (6.2-8.2) g/dL 02/18/21 02/19/21 02/19/21 Range/Units 21:03 06:56 08:17 BUN 117.0 H* (9.0-27.0) mg/dL Creatinine 2.2 H (0.6-1.5) mg/dL Est GFR (CKD-EPI)AfAm 27.5 L (60.0-200.0) Est GFR (CKD-EPI)NonAf 23.8 L (60.0-200.0) BUN/Creatinine Ratio 53.18 H (12.00-20.00) Ratio Glucose 182 H (70-110) mg/dL POC Glucose (mg/dL) 342 H 213 H (75-99) mg/dL Calcium 8.5 L (8.7-10.3) mg/dL Total Protein (PEP) (6.2-8.2) g/dL 02/19/21 Range/Units 11:38 BUN (9.0-27.0) mg/dL Creatinine (0.6-1.5) mg/dL Est GFR (CKD-EPI)AfAm (60.0-200.0) Est GFR (CKD-EPI)NonAf (60.0-200.0) BUN/Creatinine Ratio (12.00-20.00) Ratio Glucose (70-110) mg/dL POC Glucose (mg/dL) 219 H (75-99) mg/dL Calcium (8.7-10.3) mg/dL Total Protein (PEP) (6.2-8.2) g/dL Microbiology - Last 24 Hours (Table) 02/12/21 16:35 Blood Culture - Final Blood No Growth after 144 hours 02/12/21 16:35 Blood Culture - Final Blood No Growth after 144 hours Assessment and Plan Plan: Acute kidney injury, initially worsening currently improving 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 -Urinalysis negative for infection. -Urine eosinophils negative -Urine protein to creatinine ratio normal findings. Urine protein and urine creatinine normal findings. -Nephrology following with patient prednisone 30 mg twice daily for treatment of possible interstitial nephritis and sodium bicarb tablets . -ANAC and anti-GBM antibodies negative KRANTHI positive Status post renal biopsy. 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 -Hyperkalemia and hypocalcemia Metabolic acidosis secondary to acute kidney injury: Resolved, continue oral bicarbonate Acute respiratory failure with hypoxia Extensive Bilateral Pneumonia Elevated d-dimer accompanied by chest pain and shortness of breath, PE and DVT ruled out -CT chest was completed showing pleural effusions with bilateral extensive pneumonia with atelectasis and lower lobes and paratracheal lymph nodes, findings possibly related to CHF or ARDS. -COVID PCR negative -CXR revealing LLL pneumonia. -Additional antibiotics added at this time: Zosyn and doxycycline -D-dimer is 6.04. -Heparin infusion initiated and VQ scan completed. VQ scan was negative, heparin infusion discontinued. -Bilateral lower extremity Dopplers completed negative for DVTs. -Pulmonology following, appreciate recommendations Continues on oxygen, down to 4 L Cellulitis of the left foot with an infected puncture wound to the plantar aspect of the third toe, currently status post debridement, I&D and third toe amputation by Dr. Hammonds on 02/06/21 Severe sepsis without septic shock -Treated with aggressive IV fluid hydration and antibiotics. -Lactic acid was normal. -Blood culture negative -Wound cultures positive for staph aureus -Infectious disease and vascular surgery following -IV antibiotics: Daptomycin, doxycycline, and Zosyn Severe frontal headache, now resolved. -Computed tomography scan in the ER showed no acute findings negative for acute intercranial process. Type 2 diabetes insulin-dependent diabetes mellitus -Hold Glucophage and placed on glycemic protocol with sliding scale. -Levemir increased to 10 units twice daily secondary to hyperglycemia likely resulting from steroid use. -Hemoglobin A1c 8.1%. -Heart healthy and carb consistent diet. Disposition: Pending clinical progression, home in 2-3 days, continue to titrate oxygen down and monitor serum creatinine for improvement. Treatment plan discussed with the patient and her family at bedside.
[2021-02-19 16:26] LABS: Glucose,Whole Blood 217 mg/dL (75-99)
--- NOTE | 2021-02-19 17:04 | PN ---
PROGRESS NOTE DATE OF SERVICE: 02/19/2021 REASON FOR FOLLOWUP: Left foot MSSA abscess and cellulitis. INTERVAL HISTORY: The patient is afebrile. The patient is breathing slightly comfortably. Denies having any chest pain. Occasional dry cough. No nausea, no vomiting. No abdominal pain or diarrhea. PHYSICAL EXAMINATION: Blood pressure 157/69, pulse of 80, temperature 97.4. She is 97% on 4 L nasal cannula. GENERAL DESCRIPTION: General description is a middle-aged female lying in bed in no distress. RESPIRATORY SYSTEM: Unlabored breathing. Decreased intensity of breath sounds. HEART: S1, S2. Regular rate and rhythm. ABDOMEN: Soft. No tenderness. LABS: BUN of 117, creatinine 2.2. DIAGNOSTIC IMPRESSION AND PLAN: Patient with left foot abscess and cellulitis, culture reported to have MSSA. Patient subsequently had renal failure with possible interstitial nephritis, on daptomycin; to continue. Hopefully transition to oral antibiotic on discharge. Local care with Nyyl and continue supportive care. MMODL / IJN: [id number] /
[2021-02-19 20:46] LABS: Glucose,Whole Blood 127 mg/dL (75-99)
[2021-02-19] MEDS: ALPRAZolam 0.5 MG TAB PO PRN (21:57)
[2021-02-19] MEDS: BENZOCAINE/MENTHOL LOZENG 1 EACH LOZENGE MUCOUS MEM PRN (22:01)
[2021-02-19] MEDS: BENZONATATE 100 MG CAP PO PRN (22:01)
[2021-02-19] MEDS: ALBUTEROL NEBULIZED 2.5 MG/3 ML INHALATION PRN (23:33)
[2021-02-19 23:43] LABS: Glucose,Whole Blood 129 mg/dL (75-99)
[2021-02-19] MEDS ORDERED: FUROSEMIDE 10 MG/ML 10 ML VIAL IV STA (23:59)
[2021-02-20 00:01] LABS: Allen Test Performed? Yes
[2021-02-20 00:02] LABS: ABG Base Excess 1.9 mmol/L; ABG HCO3 26 mmol/L (21-25); ABG PCO2 38 mmHg (35-45); ABG PH 7.44 (7.35-7.45); ABG PO2 111 mmHg (83-108); ABG TCO2 27 mmol/L (19-24)
[2021-02-20 00:21] LABS: HCT 32.2 % (34.0-46.0); HGB 10.6 gm/dL (11.4-16.0); MCH 27.5 pg (25.0-35.0); MCHC 33.1 g/dL (31.0-37.0); MCV 83.1 fL (80.0-100.0); Mean Platelet Volume 7.8; Platelet Count 469 k/uL (150-450); RBC 3.88 m/uL (3.80-5.40); RDW 14.4 % (11.5-15.5); WBC 29.8 k/uL (3.8-10.6)
--- NOTE | 2021-02-20 00:25 | XR ---
EXAMINATION TYPE: XR chest 1V portable DATE OF EXAM: 02/19/2021 COMPARISON: 02/12/2021 HISTORY: Short of breath TECHNIQUE: Single view FINDINGS: There is moderate pulmonary airspace edema. Heart size is normal. Bony thorax is intact. IMPRESSION: Increased pulmonary edema compared to last exam. This could be worsening RDS.
[2021-02-20 00:36] LABS: African American GFR (CKD) 28 (>60 ml/min/1.73 sqM); Anion Gap 11 mmol/L; Carbon Dioxide 23 mmol/L (22-30); Chloride 104 mmol/L (98-107); Glucose 118 mg/dL (74-99); Magnesium 1.8 mg/dL (1.6-2.3); Non-African American GFR(CKD) 24 (>60 ml/min/1.73 sqM); Potassium 5.1 mmol/L (3.5-5.1); Sodium 138 mmol/L (137-145)
[2021-02-20 00:55] LABS: Blood Urea Nitrogen 115 mg/dL (7-17)
--- NOTE | 2021-02-20 01:08 | P.EN ---
A team note Activated at 11:40 PM. Arrived at the scene shortly after. The patient was found to have developed sudden onset of shortness of breath. The vitals as reported by the RN were SpO2 80% on room air, respiratory rate 30, pulse 110, and BP 154/90. Upon arrival at the scene, the patient reported feeling short of breath. She denied any additional complaints. She denied fever, chills, cough, nausea, vomiting, abdominal pain. General: Non-toxic, in respiratory distress, appears stated age, obese HEENT: NC/AT, anicteric sclerae, moist conjunctiva, no lid-lag, PERRLA Cardiovascular: S1/S2 wnl, no murmurs, rubs, or gallops Lungs: Diffuse rhonchi on rales appreciated, increased respiratory effort, some accessory muscle use Abdominal: Soft, non-tender, non-distended, no guarding, rebound, or rigidity Skin: Warm, dry Extremities: 1+ bilateral lower extremity pitting edema, contractures Psychiatric: Alert and oriented to person, place and time, appropriate affect Neuro: CN II-XII grossly intact, no gross focal deficits noted Following the initiation of BiPAP, the patient's vitals were noted to be 158/72, pulse 108, temp 97.8, and SpO2 99% on BiPAP. Assessment/plan Shortness of breath, suspected secondary to flash pulmonary edema in setting of worsening kidney function -Lasix 60 mg IV push ordered -Chest x-ray reviewed -ABG reviewed -Started patient on BiPAP -Pulmonary team notified -Continue with Lasix 60 mg every 12 hourly for now Total time spent providing critical care for this patient: 35 minutes
[2021-02-20 02:28] LABS: Glucose,Whole Blood 99 mg/dL (75-99)
[2021-02-20 07:35] LABS: Basophils % (A) 0 %; Eosinophils # (A) 0.2 k/uL (0-0.7); Eosinophils % (A) 1 %; HCT 29.7 % (34.0-46.0); HGB 9.5 gm/dL (11.4-16.0); Lymphocytes # (A) 2.1 k/uL (1.0-4.8); Lymphocytes % (A) 9 %; MCH 26.4 pg (25.0-35.0); MCHC 31.9 g/dL (31.0-37.0); MCV 82.6 fL (80.0-100.0); Mean Platelet Volume 8.9; Monocytes # (A) 0.5 k/uL (0-1.0); Monocytes % (A) 2 %; Neutrophils # (A) 20.3 k/uL (1.3-7.7); Neutrophils % (A) 88 %; Platelet Count 390 k/uL (150-450); RDW 14.7 % (11.5-15.5); WBC 23.2 k/uL (3.8-10.6)
--- NOTE | 2021-02-20 07:45 | XR ---
EXAMINATION TYPE: XR chest 1V DATE OF EXAM: 02/20/2021 COMPARISON: NONE HISTORY: Shortness of breath FINDINGS: There are bilateral pleural effusions with bibasilar infiltrate. There is a diffuse interstitial pat tern. Heart size stable. Osseous structures unchanged. IMPRESSION: 1. Diffuse pleural-parenchymal changes correlate for ARDS, diffuse pneumonia or pulmonary edema.
[2021-02-20 07:53] LABS: ALT 16 U/L (4-34); AST 22 U/L (14-36); African American GFR (CKD) 28 (>60 ml/min/1.73 sqM); Albumin 2.6 g/dL (3.5-5.0); Albumin/Globulin Ratio 0.9; Alkaline Phosphatase 67 U/L (38-126); Anion Gap 7 mmol/L; Calcium 8.6 mg/dL (8.4-10.2); Carbon Dioxide 26 mmol/L (22-30); Chloride 106 mmol/L (98-107); Glucose 79 mg/dL (74-99); Magnesium 1.8 mg/dL (1.6-2.3); Non-African American GFR(CKD) 24 (>60 ml/min/1.73 sqM); Potassium 5.1 mmol/L (3.5-5.1); Sodium 139 mmol/L (137-145); Total Bilirubin 0.5 mg/dL (0.2-1.3); Total Protein 5.6 g/dL (6.3-8.2)
[2021-02-20 08:49] LABS: Blood Urea Nitrogen 120 mg/dL (7-17)
[2021-02-20] MEDS ORDERED: predniSONE 20 MG TAB PO SCH (09:00)
--- NOTE | 2021-02-20 09:13 | P.PN ---
Subjective Patient is seen in follow-up for acute kidney injury. She is being treated for left foot infection and underwent amputation of the third toe. She is on IV antibiotics. Also on IV Lasix for edema. Has a Magallanes catheter. Good urine output. Currently on BiPAP. Became short of breath last night and chest x-ray was suggestive of pulmonary edema. Vital signs are stable. General: The patient appeared well nourished and normally developed. HEENT: Head exam is unremarkable. On BiPAP. LUNGS: Breath sounds decreased. HEART: Rate and Rhythm are regular. ABDOMEN: Soft, obese. EXTREMITITES: 2+ edema. No drainage noted. Objective - Vital Signs Vital signs: Vital Signs Temp 101.3 F H 02/20/21 04:00 Pulse 92 02/20/21 07:00 Resp 25 H 02/20/21 07:00 BP 143/73 02/20/21 07:00 Pulse Ox 94 L 02/20/21 07:00 Intake & Output 02/19/21 02/20/21 02/20/21 18:59 06:59 18:59 Intake Total 1418 1139 Output Total 800 1485 65 Balance 618 -346 -65 Weight 108 kg Intake: Oral 1418 1139 Output: Urine 800 1485 65 Other: Voiding Method Indwelling Catheter # Voids 2 - Labs CBC & Chem 7: 02/20/21 07:26 02/20/21 07:26 Labs: Abnormal Lab Results - Last 24 Hours (Table) 02/19/21 02/19/21 02/19/21 Range/Units 08:17 11:38 16:25 WBC (3.8-10.6) k/uL RBC (3.80-5.40) m/uL Hgb (11.4-16.0) gm/dL Hct (34.0-46.0) % Plt Count (150-450) k/uL Neutrophils # (1.3-7.7) k/uL APTT (22.0-30.0) sec ABG pO2 (83-108) mmHg ABG HCO3 (21-25) mmol/L ABG Total CO2 (19-24) mmol/L ABG O2 Saturation (94-97) % BUN 117.0 H* (9.0-27.0) mg/dL Creatinine 2.2 H (0.6-1.5) mg/dL Est GFR (CKD-EPI)AfAm 27.5 L (60.0-200.0) Est GFR (CKD-EPI)NonAf 23.8 L (60.0-200.0) BUN/Creatinine Ratio 53.18 H (12.00-20.00) Ratio Glucose 182 H (70-110) mg/dL POC Glucose (mg/dL) 219 H 217 H (75-99) mg/dL Calcium 8.5 L (8.7-10.3) mg/dL Total Protein (6.3-8.2) g/dL Albumin (3.5-5.0) g/dL 02/19/21 02/19/21 02/19/21 Range/Units 20:34 23:42 23:53 WBC (3.8-10.6) k/uL RBC (3.80-5.40) m/uL Hgb (11.4-16.0) gm/dL Hct (34.0-46.0) % Plt Count (150-450) k/uL Neutrophils # (1.3-7.7) k/uL APTT (22.0-30.0) sec ABG pO2 111 H (83-108) mmHg ABG HCO3 26 H (21-25) mmol/L ABG Total CO2 27 H (19-24) mmol/L ABG O2 Saturation 98.0 H (94-97) % BUN (9.0-27.0) mg/dL Creatinine (0.6-1.5) mg/dL Est GFR (CKD-EPI)AfAm (60.0-200.0) Est GFR (CKD-EPI)NonAf (60.0-200.0) BUN/Creatinine Ratio (12.00-20.00) Ratio Glucose (70-110) mg/dL POC Glucose (mg/dL) 127 H 129 H (75-99) mg/dL Calcium (8.7-10.3) mg/dL Total Protein (6.3-8.2) g/dL Albumin (3.5-5.0) g/dL 02/20/21 02/20/21 02/20/21 Range/Units 00:02 00:02 00:02 WBC 29.8 H (3.8-10.6) k/uL RBC (3.80-5.40) m/uL Hgb 10.6 L (11.4-16.0) gm/dL Hct 32.2 L (34.0-46.0) % Plt Count 469 H (150-450) k/uL Neutrophils # (1.3-7.7) k/uL APTT 20.2 L (22.0-30.0) sec ABG pO2 (83-108) mmHg ABG HCO3 (21-25) mmol/L ABG Total CO2 (19-24) mmol/L ABG O2 Saturation (94-97) % BUN 115 H* (9.0-27.0) mg/dL Creatinine 2.17 H (0.6-1.5) mg/dL Est GFR (CKD-EPI)AfAm (60.0-200.0) Est GFR (CKD-EPI)NonAf (60.0-200.0) BUN/Creatinine Ratio (12.00-20.00) Ratio Glucose 118 H (70-110) mg/dL POC Glucose (mg/dL) (75-99) mg/dL Calcium (8.7-10.3) mg/dL Total Protein (6.3-8.2) g/dL Albumin (3.5-5.0) g/dL 02/20/21 02/20/21 Range/Units 07:26 07:26 WBC 23.2 H (3.8-10.6) k/uL RBC 3.60 L (3.80-5.40) m/uL Hgb 9.5 L (11.4-16.0) gm/dL Hct 29.7 L (34.0-46.0) % Plt Count (150-450) k/uL Neutrophils # 20.3 H (1.3-7.7) k/uL APTT (22.0-30.0) sec ABG pO2 (83-108) mmHg ABG HCO3 (21-25) mmol/L ABG Total CO2 (19-24) mmol/L ABG O2 Saturation (94-97) % BUN 120 H* (9.0-27.0) mg/dL Creatinine 2.16 H (0.6-1.5) mg/dL Est GFR (CKD-EPI)AfAm (60.0-200.0) Est GFR (CKD-EPI)NonAf (60.0-200.0) BUN/Creatinine Ratio (12.00-20.00) Ratio Glucose (70-110) mg/dL POC Glucose (mg/dL) (75-99) mg/dL Calcium (8.7-10.3) mg/dL Total Protein 5.6 L (6.3-8.2) g/dL Albumin 2.6 L (3.5-5.0) g/dL Assessment and Plan Plan: Assessment: 1. 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 Kidney biopsy also revealed acute tubular injury as well as diabetic changes. Creatinine peaked at 3.3 this admission - 2.16 today. Baseline creatinine near 1. Urine eosinophils negative. No evidence of obstruction. 2. Hyperkalemia secondary to hyperglycemia. Also received Kayexalate. Improved. 3. Elevated BUN secondary to acute kidney injury as well as steroids. No evidence of GI bleed. 4. Left foot cellulitis with culture positive for staph aureus. Status post amputation of the left third toe. On antibiotics. 5. Benign hypertension. Exacerbated by steroids. 6. Diabetes mellitus. 7. Volume overload. 8. Acute approximately respiratory failure secondary to volume overload. 9. Metabolic acidosis secondary to acute kidney injury maintained on oral bicarb. Plan: Change IV push Lasix to Lasix drip at 10 mL an hour. Continue with treating the infection. Antibiotics per infectious disease. Maintain prednisone 20 mg once daily - will further decrease to 10 mg starting tomorrow. Avoid nephrotoxins. Continue to monitor renal function and urine output. Wean FiO2.
[2021-02-20 11:27] LABS: Glucose,Whole Blood 74 mg/dL (75-99)
[2021-02-20] MEDS: INSULIN ASPART (NovoLOG) 100 UNIT/ML VIAL SQ SCH ×7 (12:13→21:45)
[2021-02-20] MEDS: INSULIN DETEMIR (LEVEMIR) 100 UNIT/ML SYR SQ SCH (12:13)
[2021-02-20] MEDS: hydrALAZINE HCL 25 MG TAB PO SCH ×3 (12:17→21:51)
[2021-02-20] MEDS: amLODIPine 5 MG TAB PO SCH (12:17)
[2021-02-20] MEDS: SODIUM BICARBONATE TAB 650 MG TAB PO SCH ×4 (12:17→21:51)
[2021-02-20] MEDS: FAMOTIDINE 20 MG TAB PO SCH (12:17)
[2021-02-20] MEDS: PREGABALIN 75 MG CAP PO SCH ×2 (12:17→21:51)
[2021-02-20] MEDS: FOLIC ACID 1 MG TAB PO SCH (12:18)
[2021-02-20] MEDS: CYANOCOBALAMIN 500 MCG TAB PO SCH (12:18)
[2021-02-20] MEDS: FUROSEMIDE 100 MG in SODIUM CHLORIDE 0.9% 90 ML IV SCH ×2 (12:19→18:10)
[2021-02-20] MEDS: HYDROCORTISONE 1% CREAM 454 GM JAR TOPICAL SCH ×3 (12:20→21:52)
[2021-02-20] MEDS: COLLAGENASE 250 UNIT/GM OINTMENT 30 GM TUBE TOPICAL SCH (12:20)
[2021-02-20] MEDS ORDERED: LIDOCAINE 1% INJ 10MG/ML (20 ML MDV) SQ ONE (12:32)
--- NOTE | 2021-02-20 12:49 | IR ---
PICC LINE PLACEMENT: HISTORY: Infection requiring long-term antibiotic therapy PROCEDURE: Ultrasound guidance of PICC line placement. ELECTRICAL PROJECT ENGINEER: COMPLICATIONS: None ANESTHESIA: 1. 1% Lidocaine locally. FINDINGS/TECHNIQUE: The procedure was explained to the patient. The risks, complications, benefits and alternatives were discussed and any questions were answered. Informed consent was obtained. The patient was placed supine on the fluoroscopic table and prepped and draped in the usual sterile fash ion. Utilizing a 21 gauge needle and sonographic guidance, access in the right basilic vein was ach ieved and there is placement of a 0.018 guidewire. The vein is patent. A 5-F. sheath was placed ove r the guidewire. The guidewire and dilator were removed and a 5-F. Double lumen PICC line was placed through the sheath with the chest x-ray confirming the tip at the level of the SVC. The sheath was removed, the catheter was flushed and sutured into position. The patient was stable throughout the p rocedure and remained stable upon discharge from the Department of Radiology. The vein puncture was patent under ultrasound. A saenz scale image was obtained to document patency of the vein punctured. All elements of the maximal barrier technique were utilized. IMPRESSION: 1. Successful PICC line placement under ultrasound performed bedside within the ICU.
--- NOTE | 2021-02-20 13:33 | XR ---
EXAMINATION TYPE: XR chest 1V confirm line [facility] DATE OF EXAM: 02/20/2021 COMPARISON: NONE HISTORY: PICC line TECHNIQUE: Single frontal view of the chest is obtained. FINDINGS: Diffuse bilateral airspace disease and pleural effusion. PICC line seen with the tip overl fabiana the SVC. No pneumothorax. Heart size stable. IMPRESSION: 1. Diffuse bilateral airspace disease is stable correlate for pulmonary edema versus diffuse pneumoni a.
--- NOTE | 2021-02-20 14:11 | P.PN ---
Subjective Progress Note Date: 02/20/21 Principal diagnosis: Acute pulmonary edema 61-year-old who presented to the emergency department on January 31, with headache, possible seizure, and also possible infection to the left foot. The patient had apparently not been feeling well for about 3-4 days prior to admission. She had a right-sided occipital headache. In addition, she apparently stepped on a stick in the yard, and developed some redness and drainage from the left foot. In addition, the patient apparently had a low- grade fever. The patient does have a history of diabetes mellitus. She recently moved to [place], from [place]. She has no doctor in this area. Anyway, over the last few days, she's been complaining of shortness of breath. Her oxygen requirements have been going up, and a chest x-ray showed bilateral infiltrates and possibly effusions, as well as a computed tomography scan showing bilateral pleural effusions, and bibasilar infiltrates and atelectasis, left greater than right. For that reason, we were consulted. The patient was on AIRVO at 45 L/m with an FiO2 of 56%. She did not appear to be particularly short of breath. The patient did state that since being on the AIRVO, she has felt better. She does have a cough, which is nonproductive. She denies any chest pain or chest discomfort. She also denies any fever or chills. Her chest x-ray and CAT scan are reviewed. White count 10.5, hemoglobin 9.9, hematocrit 30.8, and platelet count 411,000. Sed rate is 99. Sodium 134, potassium 5.4, chlorides 107, CO2 16, anion gap 11, BUN 88, and creatinine 3.31. Calcium 7.9, phosphorus 7.2. Venous Dopplers of the bilateral lower extremities were negative for DVT. A perfusion lung scan was low probability for PE. A chest x- ray done on the fifth, showed bilateral basilar infiltrates, left greater than right, with more dense consolidation in the left lower lobe. CAT scan of the chest showed bilateral pleural effusions, with extensive bilateral pneumonia and lower lobe atelectasis. COVID testing was negative, and the pro-calcitonin level was a bit elevated at 0.36. The patient is seen today 02/14/2021 in follow-up on the regular medical floor. She is currently sitting up in a chair at the bedside. Awake, alert in no acute distress. She states she is breathing a little bit better today compared to yesterday. She has been converted from the AirVo high flow oxygen back to 8 L high flow nasal cannula. O2 saturations at 95%. She's afebrile. Hemodynami matti stable. Left foot wound cultures positive for MSSA. Follow-up blood cultures revealing no growth. Ultrasound of the chest does reveal a 7.8 cm pocket on the right and a 10.4 cm pocket on the left. Marked for possible thoracentesis. Echocardiogram revealed preserved left ventricular systolic function with ejection fraction 55%. No valvular heart disease. White count 17.4. Hemoglobin 9.4. Sodium 132. Potassium 5.1. Bicarb 20.5. BUN 97. Creatinine 2.9. GFR 17. Glucose 239. Being worked up for possible vasculitis, possible interstitial nephritis. ANCA pending. Possible kidney biopsy today. Remains on D5W with 3 A of bicarb at 50 MLS per hour along with oral bicarb. Antibiotics in the form of Vibramycin, daptomycin, Zosyn. This patient was last seen by us on 02/14/2021, however the patient had so many other issues being addressed by many other consultants, and her main issue was mostly related to her cellulitis, and acute kidney injury. Dr. Corbett has signed off the case on 02/14, and last night I was called about this patient developing worsening shortness of breath, she was evaluated by the rapid response team, and she was clearly in pulmonary edema. Patient was placed on BiPAP, and I recommended immediate transfer to the ICU. I saw this patient today in the ICU, she is on BiPAP, and she is definitely in pulmonary edema. Patient is on IPAP of 10 and EPAP of 5 and FiO2 of 60%, and she is in moderate respiratory distress. She is receiving antibiotics in the form of daptomycin for her cellulitis of the foot, and she received earlier a Lasix dose of 60 mg IV push, and I recommended a Lasix drip at 10 mg per hour. Discussed her condition with her boyfriend at bedside, and made aware that the patient's condition is quite serious, and the patient may end up requiring intubation and mechanical ventilation if she doesn't improve much with Lasix drip. Labs today showed leukocytosis with WBC of 23.2 hemoglobin 9.5. BUN is up to 120 creatinine is 2.16. Objective - Vital Signs Vital signs: Vital Signs Temp 99.6 F 02/20/21 08:00 Pulse 89 02/20/21 12:00 Resp 25 H 02/20/21 12:00 BP 145/67 02/20/21 12:00 Pulse Ox 92 L 02/20/21 12:00 Intake & Output 02/19/21 02/20/21 02/20/21 18:59 06:59 18:59 Intake Total 1418 1139 Output Total 800 1485 890 Balance 618 346 890 Weight 108 kg Intake: Oral 1418 1139 Output: Urine 800 1485 890 Other: Voiding Method Indwelling Catheter # Voids 2 - Exam GENERAL EXAM: Revealed a 61-year-old female in moderate distress, on BiPAP. 10/5/60%. O2 saturation is in the mid 90s. HEAD: Normocephalic. EYES: Normal reaction of pupils, equal size. NOSE: Clear with pink turbinates. THROAT: No erythema or exudates. NECK: No masses, no JVD. CHEST: No chest wall deformity. LUNGS: Symmetrical chest expansion, crackles and rhonchi noted bilaterally. CVS: S1 and S2 normal with no audible murmur, regular rhythm. ABDOMEN: No hepatosplenomegaly, normal bowel sounds, no guarding or rigidity. SKIN: No rashes CENTRAL NERVOUS SYSTEM: No focal deficits, tone is normal in all 4 extremities. EXTREMITIES: Evidence of amputation of the third toe on the left foot noted. Dressing to left foot dry and intact. There is 3+ bipedal edema. - Labs CBC & Chem 7: 02/20/21 07:26 02/20/21 07:26 Labs: Abnormal Lab Results - Last 24 Hours (Table) 02/19/21 02/19/21 02/19/21 Range/Units 08:17 16:25 20:34 WBC (3.8-10.6) k/uL RBC (3.80-5.40) m/uL Hgb (11.4-16.0) gm/dL Hct (34.0-46.0) % Plt Count (150-450) k/uL Neutrophils # (1.3-7.7) k/uL APTT (22.0-30.0) sec ABG pO2 (83-108) mmHg ABG HCO3 (21-25) mmol/L ABG Total CO2 (19-24) mmol/L ABG O2 Saturation (94-97) % BUN 117.0 H* (9.0-27.0) mg/dL Creatinine 2.2 H (0.6-1.5) mg/dL Est GFR (CKD-EPI)AfAm 27.5 L (60.0-200.0) Est GFR (CKD-EPI)NonAf 23.8 L (60.0-200.0) BUN/Creatinine Ratio 53.18 H (12.00-20.00) Ratio Glucose 182 H (70-110) mg/dL POC Glucose (mg/dL) 217 H 127 H (75-99) mg/dL Calcium 8.5 L (8.7-10.3) mg/dL Total Protein (6.3-8.2) g/dL Albumin (3.5-5.0) g/dL 02/19/21 02/19/21 02/20/21 Range/Units 23:42 23:53 00:02 WBC 29.8 H (3.8-10.6) k/uL RBC (3.80-5.40) m/uL Hgb 10.6 L (11.4-16.0) gm/dL Hct 32.2 L (34.0-46.0) % Plt Count 469 H (150-450) k/uL Neutrophils # (1.3-7.7) k/uL APTT (22.0-30.0) sec ABG pO2 111 H (83-108) mmHg ABG HCO3 26 H (21-25) mmol/L ABG Total CO2 27 H (19-24) mmol/L ABG O2 Saturation 98.0 H (94-97) % BUN (9.0-27.0) mg/dL Creatinine (0.6-1.5) mg/dL Est GFR (CKD-EPI)AfAm (60.0-200.0) Est GFR (CKD-EPI)NonAf (60.0-200.0) BUN/Creatinine Ratio (12.00-20.00) Ratio Glucose (70-110) mg/dL POC Glucose (mg/dL) 129 H (75-99) mg/dL Calcium (8.7-10.3) mg/dL Total Protein (6.3-8.2) g/dL Albumin (3.5-5.0) g/dL 02/20/21 02/20/21 02/20/21 Range/Units 00:02 00:02 07:26 WBC (3.8-10.6) k/uL RBC (3.80-5.40) m/uL Hgb (11.4-16.0) gm/dL Hct (34.0-46.0) % Plt Count (150-450) k/uL Neutrophils # (1.3-7.7) k/uL APTT 20.2 L (22.0-30.0) sec ABG pO2 (83-108) mmHg ABG HCO3 (21-25) mmol/L ABG Total CO2 (19-24) mmol/L ABG O2 Saturation (94-97) % BUN 115 H* 120 H* (9.0-27.0) mg/dL Creatinine 2.17 H 2.16 H (0.6-1.5) mg/dL Est GFR (CKD-EPI)AfAm (60.0-200.0) Est GFR (CKD-EPI)NonAf (60.0-200.0) BUN/Creatinine Ratio (12.00-20.00) Ratio Glucose 118 H (70-110) mg/dL POC Glucose (mg/dL) (75-99) mg/dL Calcium (8.7-10.3) mg/dL Total Protein 5.6 L (6.3-8.2) g/dL Albumin 2.6 L (3.5-5.0) g/dL 02/20/21 02/20/21 Range/Units 07:26 11:26 WBC 23.2 H (3.8-10.6) k/uL RBC 3.60 L (3.80-5.40) m/uL Hgb 9.5 L (11.4-16.0) gm/dL Hct 29.7 L (34.0-46.0) % Plt Count (150-450) k/uL Neutrophils # 20.3 H (1.3-7.7) k/uL APTT (22.0-30.0) sec ABG pO2 (83-108) mmHg ABG HCO3 (21-25) mmol/L ABG Total CO2 (19-24) mmol/L ABG O2 Saturation (94-97) % BUN (9.0-27.0) mg/dL Creatinine (0.6-1.5) mg/dL Est GFR (CKD-EPI)AfAm (60.0-200.0) Est GFR (CKD-EPI)NonAf (60.0-200.0) BUN/Creatinine Ratio (12.00-20.00) Ratio Glucose (70-110) mg/dL POC Glucose (mg/dL) 74 L (75-99) mg/dL Calcium (8.7-10.3) mg/dL Total Protein (6.3-8.2) g/dL Albumin (3.5-5.0) g/dL Assessment and Plan Assessment: Impression: Acute hypoxic respiratory failure secondary to acute pulmonary edema, and fluid overload secondary to acute kidney injury. 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 Type 2 diabetes. Status post puncture wound to the left foot resulting in infection with methicillin sensitive staph aureus. Status post amputation of the left third toe. Recommendation: Continue to monitor the patient in the ICU. Continue BiPAP for now. Lasix drip at 10 mg per hour. Arrange for echocardiogram with Doppler, patient surprisingly went into flash pulmonary edema within 24 hours. Continue antibiotics as per infectious disease on the case. Continue steroids as a nephrology for her acute kidney injury. Discussed her condition with the boyfriend at bedside, and made aware that her condition is extremely poor, may require intubation and mechanical ventilation if she doesn't improve with Lasix infusion. We will continue to follow. Critical care time is over 30 minutes. Time with Patient: Greater than 30
[2021-02-20 15:25] LABS: Anti-DNA, DS unit <1.0 IU/mL; DNA Double-Stranded NEGATIVE (NEGATIVE)
[2021-02-20] MEDS: ALBUTEROL NEBULIZED 2.5 MG/3 ML INHALATION PRN (16:16)
[2021-02-20 16:39] LABS: Glucose,Whole Blood 85 mg/dL (75-99)
--- NOTE | 2021-02-20 16:47 | CDI ---
Documentation Clarification Form Date: 02/20/2021 04:13:40 PM From: Anne Marie Casanova RN, CCDS Admit Date: 02/01/2021 12:30:00 PM Patient Name: Cecelia Cavanaugh Visit Number: [id number] ATTENTION: The Clinical Documentation Specialists (CDI) and [facility] Coding Staff appreciate your assistance in clarifying documentation. Please respond to the clarification below the line at the bottom and electronically sign. The CDI & [facility] Coding staff will review the response and follow-up if needed. Please note: Queries are made part of the Legal Health Record. If you have any questions, please contact the author of this message via ITS. Dr. Sargent Your patient has the documented diagnosis of unspecified CHF in the Renal Progress notes. Additional information regarding the type & acuity of CHF is requested. History/Risk Factors: CVA, Osteoporosis, Neuropathy, THIEN with ATN, Acute Hypoxic Respiratory Failure Clinical Indicators: 02/16 Echo: EF 55% 02/20/21 VS/Pulse OX: Temp 99.1, HR 88, RR 25, B/P 155/71, spo2 91% Bipap FIO2 50%, 02/12 BNP: 4640 Chest X Ray: ARDS, pneumonia, pulmonary edema 02/16 Nephrology Progress Note: "Acute hypoxic respiratory failure secondary to pneumonia as well as congestive heart failure and consideration for pulmonary renal syndrome, for which patient has just had a biopsy and is maintained on empiric steroids." Treatment: IV Lasix 02/14 -02/19 IV Lasix 60 mg IV Q12 02/20 IV Lasix Gtt @ 10 mg/hr. In your professional opinion, can you please clarify the acuity and type of CHF if known? [ ] Acute Diastolic Heart Failure (preserved EF) [ ] Chronic Diastolic Heart Failure (preserved EF) [ ] Acute on Chronic Diastolic Heart Failure (preserved EF) [ ] Acute Systolic & Diastolic Heart Failure [ ] Chronic Systolic & Diastolic Heart Failure [ ] Acute on Chronic Heart Failure Systolic & Diastolic Heart Failure [ ] Other, please specify [ ] Unable to determine (Template Last Revised: July 2020) [ ] Other, please specify No clinical indication of CHF with normal echo, due to renal failure MTDD
[2021-02-20] MEDS: HEPARIN SODIUM,PORCINE/PF 5,000 UNIT/0.5 ML SYRINGE SQ SCH (18:09)
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
--- NOTE | 2021-02-20 18:55 | PN ---
PROGRESS NOTE DATE OF SERVICE: 02/20/2021 REASON FOR FOLLOWUP: Left foot MSSA abscess and cellulitis. INTERVAL HISTORY: The patient is afebrile. The patient was transferred to ICU last night. The patient did have sudden onset of increasing shortness of breath. She did receive Lasix and has been started on BiPAP. The patient is she is hemodynamically stable, not on any pressor support. No vomiting or diarrhea has been reported or any worsening pain to the left foot. PHYSICAL EXAMINATION: Blood pressure 155/71 with a pulse of 89, temperature 99.1. She is % on BiPAP. GENERAL DESCRIPTION: General description is a middle-aged female lying in bed in no distress. RESPIRATORY SYSTEM: Unlabored breathing. Decreased intensity of breath sounds. No wheeze. HEART: S1, S2. Regular rate and rhythm. ABDOMEN: Soft. No tenderness. EXTREMITIES: Two plus edema of feet. Left foot is currently dressed. No drainage on the dressing. LABS: Hemoglobin is white count 8.2. BUN of 120, creatinine 2.16. DIAGNOSTIC IMPRESSION AND PLAN: Patient with a left foot abscess and cellulitis secondary to MSSA, status post debridement. Culture with MSSA. Subsequently did have renal failure status post biopsy and cultures. Biopsy report is currently pending. Patient to continue daptomycin for left foot infection and cellulitis and monitor clinical course closely. MMODL / IJN: [id number] /
--- NOTE | 2021-02-20 19:43 | PN ---
PROGRESS NOTE Cecelia Cavanaugh is a 61-year-old female. She had wet gangrene of the right foot second toe. The patient had a ray amputation. The patient has been transferred to the ICU. Patient is on BiPAP. Also patient has some kidney issue, under the care of Nephrology. Today we changed the dressing. Base of the wound is granulating. We placed Santyl cream, dressing applied. The patient will be seen tomorrow for change of dressing. MMODL / IJN: [id number] /
[2021-02-20] MEDS ORDERED: INSULIN DETEMIR (LEVEMIR) 100 UNIT/ML SYR SQ SCH (21:00)
[2021-02-20 21:16] LABS: Glucose,Whole Blood 109 mg/dL (75-99)
[2021-02-21] MEDS: HEPARIN SODIUM,PORCINE/PF 5,000 UNIT/0.5 ML SYRINGE SQ SCH ×3 (00:41→17:14)
[2021-02-21] MEDS: FUROSEMIDE 100 MG in SODIUM CHLORIDE 0.9% 90 ML IV SCH ×2 (04:05→14:19)
[2021-02-21 04:36] LABS: Basophils % (A) 0 %; Eosinophils # (A) 0.2 k/uL (0-0.7); Eosinophils % (A) 1 %; HCT 29.6 % (34.0-46.0); HGB 9.6 gm/dL (11.4-16.0); Lymphocytes # (A) 1.4 k/uL (1.0-4.8); Lymphocytes % (A) 7 %; MCH 26.9 pg (25.0-35.0); MCHC 32.2 g/dL (31.0-37.0); MCV 83.6 fL (80.0-100.0); Mean Platelet Volume 7.7; Monocytes # (A) 0.5 k/uL (0-1.0); Monocytes % (A) 2 %; Neutrophils # (A) 18.2 k/uL (1.3-7.7); Neutrophils % (A) 90 %; Platelet Count 299 k/uL (150-450); RBC 3.55 m/uL (3.80-5.40); RDW 14.4 % (11.5-15.5); WBC 20.3 k/uL (3.8-10.6)
[2021-02-21 05:02] LABS: Calcium 8.6 mg/dL (8.4-10.2); Potassium 4.7 mmol/L (3.5-5.1)
[2021-02-21 06:58] LABS: Glucose,Whole Blood 90 mg/dL (75-99)
[2021-02-21] MEDS: INSULIN ASPART (NovoLOG) 100 UNIT/ML VIAL SQ SCH ×5 (06:59→20:20)
[2021-02-21] MEDS ORDERED: INSULIN DETEMIR (LEVEMIR) 100 UNIT/ML SYR SQ SCH ×2 (07:00→21:00)
[2021-02-21] MEDS: PREGABALIN 75 MG CAP PO SCH ×2 (09:00→20:23)
[2021-02-21] MEDS ORDERED: predniSONE 10 MG TAB PO SCH (09:00)
[2021-02-21] MEDS: hydrALAZINE HCL 25 MG TAB PO SCH ×3 (09:01→22:21)
[2021-02-21] MEDS: amLODIPine 5 MG TAB PO SCH (09:01)
[2021-02-21] MEDS: SODIUM BICARBONATE TAB 650 MG TAB PO SCH ×4 (09:01→22:21)
[2021-02-21] MEDS: FOLIC ACID 1 MG TAB PO SCH (09:01)
[2021-02-21] MEDS: CYANOCOBALAMIN 500 MCG TAB PO SCH (09:01)
[2021-02-21] MEDS: FAMOTIDINE 20 MG TAB PO SCH (09:01)
[2021-02-21] MEDS: HYDROCORTISONE 1% CREAM 454 GM JAR TOPICAL SCH ×3 (09:21→22:21)
[2021-02-21] MEDS: COLLAGENASE 250 UNIT/GM OINTMENT 30 GM TUBE TOPICAL SCH (09:21)
--- NOTE | 2021-02-21 09:30 | P.PN ---
Subjective Patient is seen in follow-up for acute kidney injury. She is being treated for left foot infection and underwent amputation of the third toe. She is on IV antibiotics. Maintained on Lasix drip. Nonoliguric. Currently on BiPAP. More awake and alert today. Vital signs are stable. General: The patient appeared well nourished and normally developed. HEENT: Head exam is unremarkable. On BiPAP. LUNGS: Breath sounds decreased. HEART: Rate and Rhythm are regular. ABDOMEN: Soft, obese. EXTREMITITES: 2+ edema. No drainage noted. Objective - Vital Signs Vital signs: Vital Signs Temp 97.7 F 02/21/21 07:00 Pulse 81 02/21/21 07:00 Resp 25 H 02/21/21 07:00 BP 144/68 02/21/21 07:00 Pulse Ox 92 L 02/21/21 07:00 Intake & Output 02/20/21 02/21/21 02/21/21 18:59 06:59 18:59 Intake Total 58.5 99.167 Output Total 2280 2275 175 Balance -2221.5 -2175.833 -175 Weight 107 kg Intake: Intake, IV Titration 58.5 99.167 Amount Furosemide 100 mg In 58.5 99.167 Sodium Chloride 0.9% 90 ml @ 10 MG/HR 10 mls/hr IV .Q10H [facility] Rx#: [id number] Output: Urine 2280 2275 175 Other: Voiding Method Indwelling Catheter Indwelling Catheter - Labs CBC & Chem 7: 02/21/21 03:57 02/21/21 03:57 Labs: Abnormal Lab Results - Last 24 Hours (Table) 02/20/21 02/20/21 02/21/21 Range/Units 11:26 21:14 03:57 WBC 20.3 H (3.8-10.6) k/uL RBC 3.55 L (3.80-5.40) m/uL Hgb 9.6 L (11.4-16.0) gm/dL Hct 29.6 L (34.0-46.0) % Neutrophils # 18.2 H (1.3-7.7) k/uL BUN (7-17) mg/dL Creatinine (0.52-1.04) mg/dL POC Glucose (mg/dL) 74 L 109 H (75-99) mg/dL 02/21/21 Range/Units 03:57 WBC (3.8-10.6) k/uL RBC (3.80-5.40) m/uL Hgb (11.4-16.0) gm/dL Hct (34.0-46.0) % Neutrophils # (1.3-7.7) k/uL BUN 116 H* (7-17) mg/dL Creatinine 2.24 H (0.52-1.04) mg/dL POC Glucose (mg/dL) (75-99) mg/dL Assessment and Plan Plan: Assessment: 1. 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 Kidney biopsy also revealed acute tubular injury as well as diabetic changes. Creatinine peaked at 3.3 this admission - fairly stable at 2.24 today. Baseline creatinine near 1. Urine eosinophils negative. No evidence of obstruction. 2. Hyperkalemia secondary to hyperglycemia. Also received Kayexalate. Improved. 3. Elevated BUN secondary to acute kidney injury as well as steroids. No evidence of GI bleed. 4. Left foot cellulitis with culture positive for staph aureus. Status post amputation of the left third toe. On antibiotics. 5. Benign hypertension. Exacerbated by steroids. 6. Diabetes mellitus. 7. Volume overload. Improving with diuresis. 8. Acute hypoxic respiratory failure secondary to volume overload. 9. Metabolic acidosis secondary to acute kidney injury maintained on oral bicarb. Plan: Maintain Lasix drip at 10 mL an hour. Continue with treating the infection. Antibiotics per infectious disease. Discontinue prednisone starting tomorrow. Avoid nephrotoxins. Continue to monitor renal function and urine output. Wean FiO2.
--- NOTE | 2021-02-21 10:28 | XR ---
EXAMINATION TYPE: XR chest 1V portable DATE OF EXAM: 02/21/2021 COMPARISON: 02/20/2021 HISTORY: Shortness of breath TECHNIQUE: Single frontal view of the chest is obtained. FINDINGS: PICC line appears in good position. There is a diffuse bilateral airspace disease with jan ateral pleural effusions. No pneumothorax. Heart size stable. IMPRESSION: 1. Correlate for pulmonary edema, ARDS or diffuse pneumonia.
--- NOTE | 2021-02-21 10:40 | P.CRDCN ---
History of Present Illness History of present illness: HISTORY OF PRESENTING ILLNESS This is a pleasant 61-year-old female past medical history significant for diabetes mellitus. 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 We have been asked to see in consultation for pulmonary edema. She initially presented to the hospital on 01/31 with complaints of headache and draining wound on her foot. 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 She is currently in ICU on bipap for respiratory support. She was stared on a lasix infusion yesterday due to worsening fluid overload. She is seen and examined sitting up in no acute distress. She is answering questions appropriately. She complains of feeling more short of breath over the last 2 days. She has no chest pain, dizziness or palpitations. Initial EKG on admission reveals SR with no evidence of ischemia. Yesterday's chest xray showed diffuse bilateral airspace disease. Laboratory data reviewed, WBC 20.3, hemoglobin 9.6, platelets 299, sodium 141, potassium 4.7, creatinine 2.24, NT proBNP 3280, magnesium 1.8. Echocardiogram obtained on this admission reveals preserved LV systolic function with ejection fraction greater than 55%. Currently maintained on amlodipine 5 mg daily and hydralazine 25 mg 3 times a day. She has had significant urine output in the last 72 hours. Last 24 hours was over 4.5 liters. REVIEW OF SYSTEMS At the time of my exam: CONSTITUTIONAL: Denies fever or chills. CARDIOVASCULAR: Complains of shortness of breath. Denies chest pain, orthopnea, PND or palpitations. RESPIRATORY: Denies cough. GASTROINTESTINAL: Denies abdominal pain, diarrhea, constipation, nausea or vomiting. MUSCULOSKELETAL: Denies myalgias. NEUROLOGIC: Denies numbness, tingling, headache or weakness. ENDOCRINE: Denies fatigue, weight change, polydipsia or polyurina. GENITOURINARY: Denies burning, hematuria or urgency with micturation. HEMATOLOGIC: Denies history of anemia or bleeding. PHYSICAL EXAMINATION Blood pressure 144/68 heart rate 81 afebrile and maintaining oxygen saturation on bipap. CONSTITUTIONAL: No apparent distress. HEENT: Head is normocephalic. Pupils are equal, round. Sclerae anicteric. Mucous membranes of the mouth are moist. No JVD. Bilateral carotid bruit. CHEST EXAMINATION: Crackles appreciated in the upper lobes with decreased air exchange at the bases. No chest wall tenderness is noted on palpation or with deep breathing. HEART EXAMINATION: Regular rate and rhythm. S1, S2 heard. No murmurs, gallops or rub. ABDOMEN: Soft, nontender. EXTREMITIES: 2+ peripheral pulses, 2+ bilateral lower extremity pitting edema and no calf tenderness. NEUROLOGIC EXAMINATION: Patient is awake, alert and oriented x3. ASSESSMENT Hypoxic respiratory failure Acute fluid overload secondary to renal failure Leukocytosis Acute kidney failure White gangrene status post toe amputation Diabetes mellitus Hypertension PLAN Continue IV diuresis per nephrology. Document accurate intake and output along with daily weights. If her breathing does not improve with diuresis, we may consider right heart cath to evaluate her cardiac pressures. Further recommendations to follow based on clinical course. Thank you kindly for this consultation. Nurse Practitioner note has been reviewed, I agree with a documented findings and plan of care. Patient was seen and examined. 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 Past Anesthesia/Blood Transfusion Reactions: No Reported Reaction Past Psychological History: Anxiety Smoking Status: Never smoker Past Alcohol Use History: None Reported Past Drug Use History: None Reported - Past Family History family Family Medical History: No Reported History Medications and Allergies Home Medications Medication Instructions Recorded Confirmed Type DULoxetine HCL [Cymbalta] 30 mg PO DAILY 02/09/21 02/09/21 History Linagliptin [Tradjenta] 5 mg PO DAILY 02/09/21 02/09/21 History Nortriptyline [Pamelor] 50 mg PO HS 02/09/21 02/09/21 History Cephalexin [Keflex] 500 mg PO Q6HR 14 Days #56 cap 02/10/21 Rx Insulin Detemir (Levemir) [Levemir] 10 unit SQ DAILY@0700 #1 dispenser 02/10/21 Rx Pregabalin [Lyrica] 75 mg PO BID 30 Days #60 cap 02/10/21 Rx Allergies Allergy/AdvReac Type Severity Reaction Status Date / Time No Known Allergies Allergy Verified 01/31/21 18:03 Physical Exam Vitals: Vital Signs Temp Pulse Pulse Resp BP Pulse Ox 02/21/21 07:00 97.7 F 81 25 H 144/68 92 L 02/21/21 06:00 83 24 143/70 91 L 02/21/21 05:00 83 23 147/68 93 L 02/21/21 04:00 99.2 F 83 98 30 H 143/73 91 L 02/21/21 03:00 84 25 H 148/74 91 L 02/21/21 02:00 82 21 144/71 92 L 02/21/21 01:00 87 23 144/71 91 L 02/21/21 00:00 89 98 25 H 150/73 89 L 02/20/21 23:35 89 23 145/77 90 L 02/20/21 23:00 90 22 145/77 90 L 02/20/21 22:00 92 26 H 151/84 88 L 02/20/21 21:00 89 26 H 145/72 90 L 02/20/21 20:00 99.2 F 89 98 24 148/68 90 L 02/20/21 19:00 91 28 H 152/71 91 L 02/20/21 18:00 89 25 H 146/69 90 L 02/20/21 17:00 90 25 H 156/67 89 L 02/20/21 16:26 91 02/20/21 16:16 89 02/20/21 16:00 99.1 F 88 98 25 H 155/71 91 L 02/20/21 15:00 90 28 H 160/66 91 L 02/20/21 14:00 87 25 H 159/69 91 L 02/20/21 13:00 90 29 H 147/69 92 L 02/20/21 12:00 89 98 25 H 145/67 92 L 02/20/21 11:00 91 41 H 148/69 93 L Intake and Output 02/20/21 02/21/21 02/21/21 22:59 06:59 14:59 Intake Total 58.5 99.167 Output Total 1315 1750 175 Balance -1256.5 -1650.833 -175 Intake: Intake, IV Titration 58.5 99.167 Amount Furosemide 100 mg In 58.5 99.167 Sodium Chloride 0.9% 90 ml @ 10 MG/HR 10 mls/hr IV .Q10H [facility] Rx#: [id number] Output: Urine 1315 1750 175 Other: Voiding Method Indwelling Catheter Indwelling Catheter Weight 107 kg Results 02/21/21 03:57 02/21/21 03:57 CBC 02/21/21 Range/Units 03:57 WBC 20.3 H (3.8-10.6) k/uL RBC 3.55 L (3.80-5.40) m/uL Hgb 9.6 L (11.4-16.0) gm/dL Hct 29.6 L (34.0-46.0) % Plt Count 299 (150-450) k/uL Comprehensive Metabolic Panel 02/21/21 Range/Units 03:57 Sodium 141 (137-145) mmol/L Potassium 4.7 (3.5-5.1) mmol/L Chloride 105 (98-107) mmol/L Carbon Dioxide 27 (22-30) mmol/L BUN 116 H* (7-17) mg/dL Creatinine 2.24 H (0.52-1.04) mg/dL Glucose 96 (74-99) mg/dL Calcium 8.6 (8.4-10.2) mg/dL Current Medications Generic Name Dose Route Start Last Admin Trade Name Freq PRN Reason Stop Dose Admin Acetaminophen 650 mg 01/31/21 21:38 02/18/21 22:53 Acetaminophen Tab 325 Mg Tab PO 650 mg Q6HR PRN Administration Mild Pain or Fever > 100.5 Acetaminophen/Butalbital/Caffeine 1 each 02/01/21 03:25 02/08/21 15:41 Butalb/Apap/Caff 50-325-40mg Tab PO 1 each Q4HR PRN Administration Headache Albuterol Sulfate 2.5 mg 02/12/21 17:59 02/20/21 16:16 Albuterol Nebulized 2.5 Mg/3 Ml INHALATION 2.5 mg RT-QID PRN Administration Shortness Of Breath Or Wheezing Alprazolam 0.5 mg 02/14/21 14:25 02/19/21 21:57 Alprazolam 0.5 Mg Tab PO 0.5 mg Q6H PRN Administration Anxiety Amlodipine Besylate 5 mg 02/15/21 14:45 02/21/21 09:01 Amlodipine 5 Mg Tab PO 5 mg DAILY ERIC Administration Benzocaine/Menthol 1 each 02/12/21 15:36 02/19/21 22:01 Benzocaine/Menthol Lozeng 1 Each Lozenge MUCOUS MEM 1 each Q4HR PRN Administration Sore Throat Benzonatate 100 mg 02/12/21 16:28 02/19/21 22:01 Benzonatate 100 Mg Cap PO 100 mg TID PRN Administration Cough Collagenase 1 applic 02/17/21 09:00 02/21/21 09:21 Collagenase 250 Unit/Gm Ointment 30 Gm Tube TOPICAL Not Given DAILY [facility] Protocol Cyanocobalamin 1,000 mcg 02/05/21 09:00 02/21/21 09:01 Cyanocobalamin 500 Mcg Tab PO 1,000 mcg DAILY ERIC Administration Famotidine 20 mg 02/11/21 09:00 02/21/21 09:01 Famotidine 20 Mg Tab PO 20 mg DAILY ERIC Administration Folic Acid 2 mg 02/07/21 09:00 02/21/21 09:01 Folic Acid 1 Mg Tab PO 2 mg DAILY ERIC Administration Heparin Sodium (Porcine) 5,000 unit 02/20/21 16:00 02/21/21 09:01 Heparin Sodium,Porcine/Pf 5,000 Unit/0.5 Ml Syringe SQ 5,000 unit Q8HR ERIC Administration Hydralazine HCl 25 mg 02/18/21 16:00 02/21/21 09:01 Hydralazine Hcl 25 Mg Tab PO 25 mg TID ERIC Administration Hydrocortisone 1 applic 02/07/21 18:15 02/21/21 09:21 Hydrocortisone 1% Cream 454 Gm Jar TOPICAL Not Given TID [facility] Protocol Daptomycin 500 mg/ Sodium 50 mls @ 100 mls/hr 02/13/21 12:00 02/19/21 11:43 Chloride IVPB 100 mls/hr Q48H ERIC Administration Protocol Furosemide 100 mg/ Sodium 100 mls @ 10 mls/hr 02/20/21 07:30 02/21/21 04:05 Chloride IV 10 mg/hr .Q10H ERIC 10 mls/hr Administration 10 MG/HR Insulin Aspart 0 unit 02/01/21 12:30 02/21/21 06:59 Insulin Aspart (Novolog) 100 Unit/Ml Vial SQ Not Given ACHS [facility] Protocol Insulin Aspart 6 unit 02/18/21 17:30 02/21/21 06:59 Insulin Aspart (Novolog) 100 Unit/Ml Vial SQ Not Given AC-TID [facility] Insulin Detemir 14 unit 02/21/21 07:00 02/21/21 06:57 Insulin Detemir (Levemir) 100 Unit/Ml Syr SQ 14 unit DAILY@0700 [facility] Administration Insulin Detemir 14 unit 02/20/21 21:00 02/20/21 21:51 Insulin Detemir (Levemir) 100 Unit/Ml Syr SQ 14 unit HS [facility] Administration Naloxone HCl 0.2 mg 01/31/21 21:38 Naloxone 0.4 Mg/Ml 1 Ml Vial IV Q2M PRN Opioid Reversal Ondansetron HCl 4 mg 02/01/21 10:51 Ondansetron 4 Mg/2 Ml Vial IVP Q6HR PRN Nausea And Vomiting Prednisone 10 mg 02/21/21 09:00 02/21/21 09:01 Prednisone 10 Mg Tab PO 10 mg DAILY ERIC Administration Pregabalin 75 mg 02/03/21 21:00 02/21/21 09:00 Pregabalin 75 Mg Cap PO 75 mg BID [facility] Administration Sodium Bicarbonate 650 mg 02/11/21 18:00 02/21/21 09:01 Sodium Bicarbonate Tab 650 Mg Tab PO 650 mg QID [facility] Administration Intake and Output 02/20/21 02/21/21 02/21/21 22:59 06:59 14:59 Intake Total 58.5 99.167 Output Total 1315 1750 175 Balance -1256.5 -1650.833 -175 Intake: Intake, IV Titration 58.5 99.167 Amount Furosemide 100 mg In 58.5 99.167 Sodium Chloride 0.9% 90 ml @ 10 MG/HR 10 mls/hr IV .Q10H [facility] Rx#: [id number] Output: Urine 1315 1750 175 Other: Voiding Method Indwelling Catheter Indwelling Catheter Weight 107 kg 02/21/21 03:57 02/21/21 03:57
--- NOTE | 2021-02-21 10:56 | ECHOF ---
Referral Reason:acute pulm edema MEASUREMENTS -------- HEIGHT: 162.6 cm WEIGHT: 108.0 kg BP: 166/66 RVIDd: 3.6 cm (< 3.3) IVSd: 1.5 cm (0.6 - 1.1) LVIDd: 4.7 cm (3.9 - 5.3) LVPWd: 1.1 cm (0.6 - 1.1) IVSs: 2.0 cm LVIDs: 2.4 cm LVPWs: 1.6 cm RAP: 5.00 mmHg RVSP: 50.20 mmHg TAPSE: 25.81 mm FINDINGS -------- Sinus rhythm. Limited Study The left ventricular size is normal. There is moderate concentric left ventricular hypertrophy. O verall left ventricular systolic function is normal with, an EF between 55 - 60 %. The right ventricle is mildly enlarged. The right atrium is mildly enlarged. [id number] tricuspid regurgitation present. There is mild to moderate pulmonary hypertension. The right ventricular systolic pressure, as measured by Doppler, is 50.20mmHg. CONCLUSIONS -------- 1. The left ventricular size is normal. 2. There is moderate concentric left ventricular hypertrophy. 3. Overall left ventricular systolic function is normal with, an EF between 55 - 60 %. 4. The right ventricle is mildly enlarged. 5. The right atrium is mildly enlarged. 6. [id number] tricuspid regurgitation present. 7. There is mild to moderate pulmonary hypertension. 8. The right ventricular systolic pressure, as measured by Doppler, is 50.20mmHg. ST[employer] CRANE OPERATOR: Louise Rich RDCS
[2021-02-21 11:40] LABS: Glucose,Whole Blood 53 mg/dL (75-99)
--- NOTE | 2021-02-21 11:40 | P.PN ---
Subjective Progress Note Date: 02/21/21 61-year-old who presented to the emergency department on January 31, with headache, possible seizure, and also possible infection to the left foot. The patient had apparently not been feeling well for about 3-4 days prior to admission. She had a right-sided occipital headache. In addition, she apparently stepped on a stick in the yard, and developed some redness and drainage from the left foot. In addition, the patient apparently had a low- grade fever. The patient does have a history of diabetes mellitus. She recently moved to [place], from [place]. She has no doctor in this area. Anyway, over the last few days, she's been complaining of shortness of breath. Her oxygen requirements have been going up, and a chest x-ray showed bilateral infiltrates and possibly effusions, as well as a computed tomography scan showing bilateral pleural effusions, and bibasilar infiltrates and atelectasis, left greater than right. For that reason, we were consulted. The patient was on AIRVO at 45 L/m with an FiO2 of 56%. She did not appear to be particularly short of breath. The patient did state that since being on the AIRVO, she has felt better. She does have a cough, which is nonproductive. She denies any chest pain or chest discomfort. She also denies any fever or chills. Her chest x-ray and CAT scan are reviewed. White count 10.5, hemoglobin 9.9, hematocrit 30.8, and platelet count 411,000. Sed rate is 99. Sodium 134, potassium 5.4, chlorides 107, CO2 16, anion gap 11, BUN 88, and creatinine 3.31. Calcium 7.9, phosphorus 7.2. Venous Dopplers of the bilateral lower extremities were negative for DVT. A perfusion lung scan was low probability for PE. A chest x- ray done on the fifth, showed bilateral basilar infiltrates, left greater than right, with more dense consolidation in the left lower lobe. CAT scan of the chest showed bilateral pleural effusions, with extensive bilateral pneumonia and lower lobe atelectasis. COVID testing was negative, and the pro-calcitonin level was a bit elevated at 0.36. The patient is seen today 02/14/2021 in follow-up on the regular medical floor. She is currently sitting up in a chair at the bedside. Awake, alert in no acute distress. She states she is breathing a little bit better today compared to yesterday. She has been converted from the AirVo high flow oxygen back to 8 L high flow nasal cannula. O2 saturations at 95%. She's afebrile. Hemodynamically stable. Left foot wound cultures positive for MSSA. Follow-up blood cultures revealing no growth. Ultrasound of the chest does reveal a 7.8 cm pocket on the right and a 10.4 cm pocket on the left. Marked for possible thoracentesis. Echocardiogram revealed preserved left ventricular systolic function with ejection fraction 55%. No valvular heart disease. White count 17.4. Hemoglobin 9.4. Sodium 132. Potassium 5.1. Bicarb 20.5. BUN 97. Creatinine 2.9. GFR 17. Glucose 239. Being worked up for possible vasculitis, possible interstitial nephritis. ANCA pending. Possible kidney biopsy today. Remains on D5W with 3 A of bicarb at 50 MLS per hour along with oral bicarb. Antibiotics in the form of Vibramycin, daptomycin, Zosyn. This patient was last seen by us on 02/14/2021, however the patient had so many other issues being addressed by many other consultants, and her main issue was mostly related to her cellulitis, and acute kidney injury. Dr. Corbett has signed off the case on 02/14, and last night I was called about this patient developing worsening shortness of breath, she was evaluated by the rapid response team, and she was clearly in pulmonary edema. Patient was placed on BiPAP, and I recommended immediate transfer to the ICU. I saw this patient today in the ICU, she is on BiPAP, and she is definitely in pulmonary edema. Patient is on IPAP of 10 and EPAP of 5 and FiO2 of 60%, and she is in moderate respiratory distress. She is receiving antibiotics in the form of daptomycin for her cellulitis of the foot, and she received earlier a Lasix dose of 60 mg IV push, and I recommended a Lasix drip at 10 mg per hour. Discussed her condition with her boyfriend at bedside, and made aware that the patient's condition is quite serious, and the patient may end up requiring intubation and mechanical ventilation if she doesn't improve much with Lasix drip. Labs today showed leukocytosis with WBC of 23.2 hemoglobin 9.5. BUN is up to 120 creatinine is 2.16. The patient is seen today 02/21/2021 in follow-up in the intensive care unit. She is currently resting fairly comfortably in bed. Awake and alert. She is maintained on BiPAP 10/5 and 70% FiO2 with O2 saturation of 93%. She is currently on a Lasix drip at 10 mg per hour. Echocardiogram revealed preserved left ventricular systolic function with ejection fraction of 55%. Her chest x- ray is showing less fluid volume overload. She has improving edema of the lower extremities. She is diuresing well. Currently in a -4.4 L. Remains in sinus rhythm. Cultures of the third left toe were positive for MSSA. Blood cultures reveal no growth. White count 20.3. Hemoglobin 9.6. Sodium 141. Potassium 4.7. BUN 116. Creatinine 2.24. ProBNP 3280. She remains on daptomycin. Heparin for DVT prophylaxis. Objective - Vital Signs Vital signs: Vital Signs Temp 97.7 F 02/21/21 07:00 Pulse 81 02/21/21 07:00 Resp 25 H 02/21/21 07:00 BP 144/68 02/21/21 07:00 Pulse Ox 92 L 02/21/21 07:00 Intake & Output 02/20/21 02/21/21 02/21/21 18:59 06:59 18:59 Intake Total 58.5 99.167 Output Total 2280 2275 175 Balance -2221.5 -2175.833 -175 Weight 107 kg Intake: Intake, IV Titration 58.5 99.167 Amount Furosemide 100 mg In 58.5 99.167 Sodium Chloride 0.9% 90 ml @ 10 MG/HR 10 mls/hr IV .Q10H [facility] Rx#: [id number] Output: Urine 2280 2275 175 Other: Voiding Method Indwelling Catheter Indwelling Catheter - Exam GENERAL EXAM: Alert, very pleasant 61-year-old female patient, on BiPAP 10/5 and 70% FiO2, fairly comfortable in no apparent distress. HEAD: Normocephalic. EYES: Normal reaction of pupils, equal size. NOSE: Clear with pink turbinates. THROAT: No erythema or exudates. NECK: No masses, no JVD. CHEST: No chest wall deformity. LUNGS: Equal air entry with crackles in the bilateral bases, diminished CVS: S1 and S2 normal with no audible murmur, regular rhythm. ABDOMEN: No hepatosplenomegaly, normal bowel sounds, no guarding or rigidity. SPINE: No scoliosis or deformity SKIN: No rashes CENTRAL NERVOUS SYSTEM: No focal deficits, tone is normal in all 4 extremities. EXTREMITIES: Dressing to left foot dry and intact. There is trace peripheral ed marissa. No clubbing, no cyanosis. Peripheral pulses are intact. - Labs CBC & Chem 7: 02/21/21 03:57 02/21/21 03:57 Labs: Abnormal Lab Results - Last 24 Hours (Table) 02/20/21 02/21/21 02/21/21 Range/Units 21:14 03:57 03:57 WBC 20.3 H (3.8-10.6) k/uL RBC 3.55 L (3.80-5.40) m/uL Hgb 9.6 L (11.4-16.0) gm/dL Hct 29.6 L (34.0-46.0) % Neutrophils # 18.2 H (1.3-7.7) k/uL BUN 116 H* (7-17) mg/dL Creatinine 2.24 H (0.52-1.04) mg/dL POC Glucose (mg/dL) 109 H (75-99) mg/dL Assessment and Plan Assessment: 1 Acute hypoxemic respiratory failure, multifactorial, in part related to bilateral pleural effusions, and transferred to the intensive care unit 02/19/2021 and currently requiring BiPAP, Lasix drip. 2 Status post puncture wound to the left foot, which has become infected with methicillin sensitive staph aureus, amputated third toe. 3 History of diabetes mellitus. 4 Non-anion gap metabolic acidosis, secondary to renal failure. 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 6 Mild hyperkalemia. 7 Anemia. Plan: The patient was seen and evaluated by Dr. Cosme X-ray and labs reviewed Continue Lasix drip Monitor I's and O's Follow-up chest x-ray and labs in the a.m. We will continue to follow and make further recommendations based on her clinical status I, the cosigning physician, performed a history & physical examination of the patient. Lungs sounds with bilateral crackles in the posterior bases, diminished. Maintaining good O2 saturations in the 90s on BiPAP 10/5 and 70% FiO2. I discussed the assessment and plan of care with my nurse practitioner, Ramila Guillen. I attest to the above note as dictated by her.
[2021-02-21 12:32] LABS: Glucose,Whole Blood 55 mg/dL (75-99)
[2021-02-21] MEDS ORDERED: DEXTROSE 50% SYRINGE 50 ML IVP ONE ×2 (12:35→16:42)
[2021-02-21] MEDS: DAPTOmycin 500 MG in SODIUM CHLORIDE 0.9% 50 ML IVPB SCH (13:15)
[2021-02-21 13:19] LABS: Glucose,Whole Blood 84 mg/dL (75-99)
[2021-02-21] MEDS: ALPRAZolam 0.5 MG TAB PO PRN ×2 (14:19→20:23)
[2021-02-21 16:40] LABS: Glucose,Whole Blood 67 mg/dL (75-99)
--- NOTE | 2021-02-21 18:29 | PN ---
PROGRESS NOTE DATE OF SERVICE: 02/21/2021 REASON FOR FOLLOWUP: Left foot abscess, cellulitis. INTERVAL HISTORY: The patient is afebrile. The patient seems to be breathing slightly comfortably. Still requiring BiPAP. Denies any chest pain or any worsening cough. No vomiting. No abdominal pain or diarrhea. PHYSICAL EXAMINATION: Blood pressure 122/62 with a pulse of 59, temperature 98.7. She is 95% on % FiO2. GENERAL DESCRIPTION: General description is a middle-aged female lying in bed in no distress. RESPIRATORY SYSTEM: Unlabored breathing. Coarse breath sounds. No wheeze. HEART: S1, S2. Regular rate and rhythm. ABDOMEN: Soft. No tenderness. EXTREMITIES: Two plus edema of feet. LABS: Hemoglobin is 9.8, white count 20,000. BUN of 116, creatinine is 2.24. DIAGNOSTIC IMPRESSION AND PLAN: Patient with left foot wound abscess and cellulitis, positive for MSSA. Patient is covered with daptomycin. Patient to continue with current antibiotics. Will monitor clinical course closely. Slightly elevated white count is slightly concerning, but no evidence of any worsening infection. Continue supportive care. MMODL / IJN: [id number] /
--- NOTE | 2021-02-21 18:50 | P.PN ---
Subjective Progress Note Date: 02/21/21 Principal diagnosis: Headache Patient is a 61-year-old female with a history of diabetes, spinal fractures secondary to accident with history of surgery, and neuropathy who initially presented secondary to concerns for left foot infection. She was found to have staph aureus infection of her left third toe. She was seen by ID and vascular surgery. She was diagnosed with what saenz green of the left third toe and subsequently underwent an ray amputation of the left third toe. Initially she was progressing well. Plan had been for discharge home on oral antibiotics. However on day of discharge she had a significant increase in her creatinine. She also developed a diffuse papular rash with raised red lesion, and developed some shortness of breath. Chest x-ray showed pulmonary edema. There is also concern for possible pulmonary embolism and patient was started on a heparin drip. This was ruled out heparin drip was discontinued. Nephrology was consulted. She was continued on IV fluids. She then had progressive worsening of her shortness of breath and worsening interstitial infiltrate. She was seen by pulmonary who is concern for possible by basilar pneumonia. She had been started on doxycycline, No, and Zosyn with concern for allergic reaction to cefazolin . She was started on steroids. Her for possible pulmonary renal syndrome. The following testing was negative: urine eosinophils which were negative, KRANTHI which was positive, c-ANCA and p-ANCA both negative, anti-GBM negative. 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 She was started on aggressive diuresis secondary to acute fluid overload. Her kidney function improved with steroids. She again had worsening of her shortness of breath on 02/19 requiring replacement on BiPAP as well as initiation of Lasix drip. Patient seen and exemined at bedside with family present. She is feeling better than yesterday. She is breathing easy. She is not feeling very hungry yet. General: Ill appearing, mild distress, appears at stated age Derm: warm, dry Head: atraumatic, normocephalic, symmetric Eyes: EOMI, no lid lag, anicteric sclera Mouth: no lip lesion, mucus membranes moist Cardiovascular: S1S2 reg, no murmur, positive posterior tibial pulse bilateral, Lungs: Coarse breath sounds bilateral bilateral, no rhonchi, no rales , no accessory muscle use, on BiPAP Abdominal: soft, nontender to palpation, no guarding, no appreciable organomegaly Ext: no gross muscle atrophy, [diffuse anasarca, no contractures Neuro: CN II-XI grossly intact, no focal neuro deficits Psych: Lethargic, oriented, upset and tearful when awake Acute renal failure due to 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 -Lasix drip -Oral sodium bicarb Anemia -Patient's hemoglobin was normal on arrival. -I expect this is secondary to recurrent blood draws from prolonged hospital stay -Follow CBC -No signs of bleeding Wet gangrene of the left third toe, staph aureus -Status post ray amputation -Vascular surgery recommendations -Infectious disease recommendations -Daptomycin day #9 Leukocytosis -Suspect reactive to steroids -Continue to monitor closely DM 2, hypoglycemia - decreased levemir and discontinue fixed dose insulin - follow BS - A1C 8.1 Hypertension -Exacerbated by steroids -Continue with Norvasc Vitamin B 6 deficiency - B complex replacement Acute hypoxic respiratory failure due to fluid overload -Pneumonia ruled out with -continue with diuresis Hyperkalemia Hypocalcemia Metabolic acidosis Severe frontal headache, resolved Severe sepsis without septic shock Objective - Vital Signs Vital signs: Vital Signs Temp 98.7 F 02/21/21 16:00 Pulse 87 02/21/21 18:00 Resp 36 H 02/21/21 18:00 BP 129/61 02/21/21 18:00 Pulse Ox 91 L 02/21/21 18:00 Intake & Output 02/20/21 02/21/21 02/21/21 18:59 06:59 18:59 Intake Total 58.5 99.167 100 Output Total 2280 2275 2440 Balance -2221.5 -2175.833 -2340 Weight 107 kg Intake: Intake, IV Titration 58.5 99.167 100 Amount Furosemide 100 mg In 58.5 99.167 100 Sodium Chloride 0.9% 90 ml @ 10 MG/HR 10 mls/hr IV .Q10H [facility] Rx#: [id number] Output: Urine 2280 2275 2440 Other: Voiding Method Indwelling Catheter Indwelling Catheter Indwelling Catheter - Labs CBC & Chem 7: 02/21/21 03:57 02/21/21 03:57 Labs: Abnormal Lab Results - Last 24 Hours (Table) 02/20/21 02/21/21 02/21/21 Range/Units 21:14 03:57 03:57 WBC 20.3 H (3.8-10.6) k/uL RBC 3.55 L (3.80-5.40) m/uL Hgb 9.6 L (11.4-16.0) gm/dL Hct 29.6 L (34.0-46.0) % Neutrophils # 18.2 H (1.3-7.7) k/uL BUN 116 H* (7-17) mg/dL Creatinine 2.24 H (0.52-1.04) mg/dL POC Glucose (mg/dL) 109 H (75-99) mg/dL 02/21/21 02/21/21 02/21/21 Range/Units 11:38 12:30 16:38 WBC (3.8-10.6) k/uL RBC (3.80-5.40) m/uL Hgb (11.4-16.0) gm/dL Hct (34.0-46.0) % Neutrophils # (1.3-7.7) k/uL BUN (7-17) mg/dL Creatinine (0.52-1.04) mg/dL POC Glucose (mg/dL) 53 L 55 L 67 L (75-99) mg/dL Microbiology - Last 24 Hours (Table) 02/20/21 09:35 Blood Culture - Preliminary Blood No Growth after 24 hours 02/20/21 09:42 Blood Culture - Preliminary Blood No Growth after 24 hours
[2021-02-21 19:07] LABS: Glucose,Whole Blood 98 mg/dL (75-99)
[2021-02-21] MEDS: ALBUTEROL NEBULIZED 2.5 MG/3 ML INHALATION PRN (19:17)
[2021-02-21 20:21] LABS: Glucose,Whole Blood 91 mg/dL (75-99)
[2021-02-22] MEDS ORDERED: HEPARIN SODIUM,PORCINE/PF 5,000 UNIT/0.5 ML SYRINGE SQ ONE
[2021-02-22] MEDS: ALPRAZolam 0.5 MG TAB PO PRN ×4 (02:19→20:26)
[2021-02-22] MEDS: HEPARIN SODIUM,PORCINE/PF 5,000 UNIT/0.5 ML SYRINGE SQ SCH ×4 (02:56→23:01)
[2021-02-22] MEDS: FUROSEMIDE 100 MG in SODIUM CHLORIDE 0.9% 90 ML IV SCH ×3 (02:57→19:42)
[2021-02-22 03:12] LABS: Glucose,Whole Blood 76 mg/dL (75-99)
[2021-02-22 04:45] LABS: Basophils % (A) 0 %; Eosinophils % (A) 0 %; HGB 9.2 gm/dL (11.4-16.0); Lymphocytes # (A) 0.6 k/uL (1.0-4.8); Lymphocytes % (A) 3 %; MCH 27.7 pg (25.0-35.0); MCHC 32.9 g/dL (31.0-37.0); MCV 84.1 fL (80.0-100.0); Mean Platelet Volume 8.1; Monocytes # (A) 0.3 k/uL (0-1.0); Monocytes % (A) 1 %; Neutrophils # (A) 21.6 k/uL (1.3-7.7); Neutrophils % (A) 96 %; Platelet Count 262 k/uL (150-450); RBC 3.32 m/uL (3.80-5.40); RDW 14.4 % (11.5-15.5); WBC 22.6 k/uL (3.8-10.6)
[2021-02-22 04:58] LABS: Calcium 8.1 mg/dL (8.4-10.2); Potassium 4.3 mmol/L (3.5-5.1)
[2021-02-22] MEDS ORDERED: INSULIN DETEMIR (LEVEMIR) 100 UNIT/ML SYR SQ SCH (07:00)
[2021-02-22 07:07] LABS: Glucose,Whole Blood 86 mg/dL (75-99)
[2021-02-22] MEDS: INSULIN ASPART (NovoLOG) 100 UNIT/ML VIAL SQ SCH ×4 (07:12→20:26)
[2021-02-22] MEDS ORDERED: methylPREDNISolone SOD SUCCI 125 MG/2 ML VIAL IV SCH (08:00)
[2021-02-22] MEDS: FAMOTIDINE 20 MG TAB PO SCH (08:34)
[2021-02-22] MEDS: FOLIC ACID 1 MG TAB PO SCH (08:34)
[2021-02-22] MEDS: hydrALAZINE HCL 25 MG TAB PO SCH ×3 (08:34→20:26)
[2021-02-22] MEDS: SODIUM BICARBONATE TAB 650 MG TAB PO SCH (08:34)
[2021-02-22] MEDS: PREGABALIN 75 MG CAP PO SCH ×2 (08:34→20:26)
[2021-02-22] MEDS: amLODIPine 5 MG TAB PO SCH (08:35)
[2021-02-22] MEDS: CYANOCOBALAMIN 500 MCG TAB PO SCH (08:35)
--- NOTE | 2021-02-22 08:58 | XR ---
EXAMINATION TYPE: XR chest 1V portable DATE OF EXAM: 02/22/2021 COMPARISON: 02/21/2021 HISTORY: Shortness of breath TECHNIQUE: Single frontal view of the chest is obtained. FINDINGS: PICC line appears in good position. There is a diffuse bilateral airspace disease with jan ateral pleural effusions. No pneumothorax. Heart size stable. IMPRESSION: Correlate for pulmonary edema, ARDS or diffuse pneumonia.
[2021-02-22] MEDS: COLLAGENASE 250 UNIT/GM OINTMENT 30 GM TUBE TOPICAL SCH (09:29)
[2021-02-22] MEDS: HYDROCORTISONE 1% CREAM 454 GM JAR TOPICAL SCH ×3 (09:29→20:27)
--- NOTE | 2021-02-22 09:46 | P.PN ---
Subjective HISTORY OF PRESENTING ILLNESS This is a pleasant 61-year-old female past medical history significant for diabetes mellitus. She denies prior history of coronary artery disease and does not follow in the office with a manager grant. We have been asked to see in consultation for pulmonary edema. She initially presented to the hospital on 01/31 with complaints of headache and draining wound on her foot. 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 She is currently in ICU on bipap for respiratory support. She was sta red on a lasix infusion yesterday due to worsening fluid overload. She is seen and examined sitting up in no acute distress. She is answering questions appropriately. She complains of feeling more short of breath over the last 2 days. She has no chest pain, dizziness or palpitations. Initial EKG on admission reveals SR with no evidence of ischemia. Yesterday's chest xray showed diffuse bilateral airspace disease. Laboratory data reviewed, WBC 20.3, hemoglobin 9.6, platelets 299, sodium 141, potassium 4.7, creatinine 2.24, NT proBNP 3280, magnesium 1.8. Echocardiogram obtained on this admission reveals preserved LV systolic function with ejection fraction greater than 55%. Currently maintained on amlodipine 5 mg daily and hydralazine 25 mg 3 times a day. She has had significant urine output in the last 72 hours. Last 24 hours was over 4.5 liters. 02/22/2021 Pt is seen and examined sitting up in bed on bipap. Per the nurse she has been mostly bipap dependent in the previous 24hrs. She continues to feel short of breath. She has been sinus rhythm on the monitor. Blood pressure 116/60 heart rate 90 afebrile and maintaining oxygen saturation on bipap. Laboratory data reviewed, WBC 22.6, hgb 9.2, plt 262, sodium 142, potassium 4.3, creatinine 2.53. 24-hr urine output on IV diuresis is 3.9 litres. Chest xray this morning with worsening pulmonary edema vs diffuse pneumonia. Repeat COVID pending. Repeat limited echo reveals preserved LV systolic function with EF 55-60%, mildly enlarged RV, mild-moderate TR and mild-moderate pulmonary hypertension with RVSP 50 mmHg. PHYSICAL EXAMINATION CONSTITUTIONAL: No apparent distress. HEENT: Head is normocephalic. Pupils are equal, round. Sclerae anicteric. Mucous membranes of the mouth are moist. No JVD. Bilateral carotid bruit. CHEST EXAMINATION: Crackles appreciated in the upper lobes with decreased air exchange at the bases. No chest wall tenderness is noted on palpation or with deep breathing. HEART EXAMINATION: Regular rate and rhythm. S1, S2 heard. No murmurs, gallops or rub. EXTREMITIES: 2+ peripheral pulses, 2+ bilateral lower extremity pitting edema and no calf tenderness. ASSESSMENT Hypoxic respiratory failure Acute fluid overload secondary to renal failure Leukocytosis Acute kidney failure White gangrene status post toe amputation Diabetes mellitus Hypertension PLAN She is diuresing well with 3.9L of urine output on lasix infusion, however her chest xray is worsening. Diuresis per nephrology. Consider RHC if needed for hemodynamic monitoring. Discussed with Dr. Cosme. Further recommendations to follow based on clinical course. Nurse Practitioner note has been reviewed, I agree with a documented findings and plan of care. Patient was seen and examined. Objective - Vital Signs Vital signs: Vital Signs Temp 98.6 F 02/22/21 08:00 Pulse 90 02/22/21 09:00 Resp 34 H 02/22/21 09:00 BP 116/60 02/22/21 09:00 Pulse Ox 91 L 02/22/21 09:00 Intake & Output 02/21/21 02/22/21 02/22/21 18:59 06:59 18:59 Intake Total 120 420 390 Output Total 2440 1550 300 Balance -2320 -1130 90 Weight 103.8 kg Intake: IV 20 120 30 0.9 20 120 30 Intake, IV Titration 100 100 Amount Furosemide 100 mg In 100 100 Sodium Chloride 0.9% 90 ml @ 10 MG/HR 10 mls/hr IV .Q10H [facility] Rx#: [id number] Oral 200 360 Output: Urine 2440 1550 300 Other: Voiding Method Indwelling Catheter Indwelling Catheter - Labs CBC & Chem 7: 02/22/21 04:07 02/22/21 04:07 Labs: Abnormal Lab Results - Last 24 Hours (Table) 02/21/21 02/21/21 02/21/21 Range/Units 11:38 12:30 16:38 WBC (3.8-10.6) k/uL RBC (3.80-5.40) m/uL Hgb (11.4-16.0) gm/dL Hct (34.0-46.0) % Neutrophils # (1.3-7.7) k/uL Lymphocytes # (1.0-4.8) k/uL BUN (7-17) mg/dL Creatinine (0.52-1.04) mg/dL Glucose (74-99) mg/dL POC Glucose (mg/dL) 53 L 55 L 67 L (75-99) mg/dL Calcium (8.4-10.2) mg/dL 02/22/21 02/22/21 Range/Units 04:07 04:07 WBC 22.6 H (3.8-10.6) k/uL RBC 3.32 L (3.80-5.40) m/uL Hgb 9.2 L (11.4-16.0) gm/dL Hct 28.0 L (34.0-46.0) % Neutrophils # 21.6 H (1.3-7.7) k/uL Lymphocytes # 0.6 L (1.0-4.8) k/uL BUN 110 H* (7-17) mg/dL Creatinine 2.53 H (0.52-1.04) mg/dL Glucose 73 L (74-99) mg/dL POC Glucose (mg/dL) (75-99) mg/dL Calcium 8.1 L (8.4-10.2) mg/dL Microbiology - Last 24 Hours (Table) 02/20/21 09:35 Blood Culture - Preliminary Blood No Growth after 24 hours 02/20/21 09:42 Blood Culture - Preliminary Blood No Growth after 24 hours
--- NOTE | 2021-02-22 10:42 | P.PN ---
Subjective Progress Note Date: 02/22/21 61-year-old who presented to the emergency department on January 31, with headache, possible seizure, and also possible infection to the left foot. The patient had apparently not been feeling well for about 3-4 days prior to admission. She had a right-sided occipital headache. In addition, she apparently stepped on a stick in the yard, and developed some redness and drainage from the left foot. In addition, the patient apparently had a low- grade fever. The patient does have a history of diabetes mellitus. She recently moved to [place], from [place]. She has no doctor in this area. Anyway, over the last few days, she's been complaining of shortness of breath. Her oxygen requirements have been going up, and a chest x-ray showed bilateral infiltrates and possibly effusions, as well as a computed tomography scan showing bilateral pleural effusions, and bibasilar infiltrates and atelectasis, left greater than right. For that reason, we were consulted. The patient was on AIRVO at 45 L/m with an FiO2 of 56%. She did not appear to be particularly short of breath. The patient did state that since being on the AIRVO, she has felt better. She does have a cough, which is nonproductive. She denies any chest pain or chest discomfort. She also denies any fever or chills. Her chest x-ray and CAT scan are reviewed. White count 10.5, hemoglobin 9.9, hematocrit 30.8, and platelet count 411,000. Sed rate is 99. Sodium 134, potassium 5.4, chlorides 107, CO2 16, anion gap 11, BUN 88, and creatinine 3.31. Calcium 7.9, phosphorus 7.2. Venous Dopplers of the bilateral lower extremities were negative for DVT. A perfusion lung scan was low probability for PE. A chest x- ray done on the fifth, showed bilateral basilar infiltrates, left greater than right, with more dense consolidation in the left lower lobe. CAT scan of the chest showed bilateral pleural effusions, with extensive bilateral pneumonia and lower lobe atelectasis. COVID testing was negative, and the pro-calcitonin level was a bit elevated at 0.36. The patient is seen today 02/14/2021 in follow-up on the regular medical floor. She is currently sitting up in a chair at the bedside. Awake, alert in no acute distress. She states she is breathing a little bit better today compared to yesterday. She has been converted from the AirVo high flow oxygen back to 8 L high flow nasal cannula. O2 saturations at 95%. She's afebrile. Hemodynamically stable. Left foot wound cultures positive for MSSA. Follow-up blood cultures revealing no growth. Ultrasound of the chest does reveal a 7.8 cm pocket on the right and a 10.4 cm pocket on the left. Marked for possible thoracentesis. Echocardiogram revealed preserved left ventricular systolic function with ejection fraction 55%. No valvular heart disease. White count 17.4. Hemoglobin 9.4. Sodium 132. Potassium 5.1. Bicarb 20.5. BUN 97. Creatinine 2.9. GFR 17. Glucose 239. Being worked up for possible vasculitis, possible interstitial nephritis. ANCA pending. Possible kidney biopsy today. Remains on D5W with 3 A of bicarb at 50 MLS per hour along with oral bicarb. Antibiotics in the form of Vibramycin, daptomycin, Zosyn. This patient was last seen by us on 02/14/2021, however the patient had so many other issues being addressed by many other consultants, and her main issue was mostly related to her cellulitis, and acute kidney injury. Dr. Corbett has signed off the case on 02/14, and last night I was called about this patient developing worsening shortness of breath, she was evaluated by the rapid response team, and she was clearly in pulmonary edema. Patient was placed on BiPAP, and I recommended immediate transfer to the ICU. I saw this patient today in the ICU, she is on BiPAP, and she is definitely in pulmonary edema. Patient is on IPAP of 10 and EPAP of 5 and FiO2 of 60%, and she is in moderate respiratory distress. She is receiving antibiotics in the form of daptomycin for her cellulitis of the foot, and she received earlier a Lasix dose of 60 mg IV push, and I recommended a Lasix drip at 10 mg per hour. Discussed her condition with her boyfriend at bedside, and made aware that the patient's condition is quite serious, and the patient may end up requiring intubation and mechanical ventilation if she doesn't improve much with Lasix drip. Labs today showed leukocytosis with WBC of 23.2 hemoglobin 9.5. BUN is up to 120 creatinine is 2.16. The patient is seen today 02/21/2021 in follow-up in the intensive care unit. She is currently resting fairly comfortably in bed. Awake and alert. She is maintained on BiPAP 10/5 and 70% FiO2 with O2 saturation of 93%. She is currently on a Lasix drip at 10 mg per hour. Echocardiogram revealed preserved left ventricular systolic function with ejection fraction of 55%. Her chest x- ray is showing less fluid volume overload. She has improving edema of the lower extremities. She is diuresing well. Currently in a -4.4 L. Remains in sinus rhythm. Cultures of the third left toe were positive for MSSA. Blood cultures reveal no growth. White count 20.3. Hemoglobin 9.6. Sodium 141. Potassium 4.7. BUN 116. Creatinine 2.24. ProBNP 3280. She remains on daptomycin. Heparin for DVT prophylaxis. The patient is seen today 02/22/2021 in follow-up in the intensive care unit. She remains awake and alert. She is continued on BiPAP currently 10/5 and 90% FiO2 to maintain O2 saturations in the 90s. She remains on a Lasix drip at 10 mg per hour. She is in -8 L fluid balance in the past 48 hours. She remains on Solu-Medrol 60 mg every 8 hours. She is continued on antibiotics in the form of daptomycin. Chest x-ray continues to show diffuse bilateral airspace disease with bilateral pleural effusions. Pulmonary edema versus ARDS versus pneumonia. Follow-up blood cultures revealed no growth. White count 22.6. Hemoglobin 9.2. Sodium 142. Potassium 4.3. Creatinine 2.53. Valentin virus not detected. Heparin for DVT prophylaxis. Objective - Vital Signs Vital signs: Vital Signs Temp 98.6 F 02/22/21 08:00 Pulse 90 02/22/21 09:00 Resp 34 H 02/22/21 09:00 BP 116/60 02/22/21 09:00 Pulse Ox 91 L 02/22/21 09:00 Intake & Output 02/21/21 02/22/21 02/22/21 18:59 06:59 18:59 Intake Total 120 420 390 Output Total 2440 1550 300 Balance -2320 -1130 90 Weight 103.8 kg Intake: IV 20 120 30 0.9 20 120 30 Intake, IV Titration 100 100 Amount Furosemide 100 mg In 100 100 Sodium Chloride 0.9% 90 ml @ 10 MG/HR 10 mls/hr IV .Q10H [facility] Rx#: [id number] Oral 200 360 Output: Urine 2440 1550 300 Other: Voiding Method Indwelling Catheter Indwelling Catheter Indwelling Catheter - Exam GENERAL EXAM: Alert, very pleasant 61-year-old female patient, on BiPAP 10/5 and 90% FiO2, fairly comfortable in no apparent distress. HEAD: Normocephalic. EYES: Normal reaction of pupils, equal size. NOSE: Clear with pink turbinates. THROAT: No erythema or exudates. NECK: No masses, no JVD. CHEST: No chest wall deformity. LUNGS: Equal air entry with crackles in the bilateral bases, diminished CVS: S1 and S2 normal with no audible murmur, regular rhythm. ABDOMEN: No hepatosplenomegaly, normal bowel sounds, no guarding or rigidity. SPINE: No scoliosis or deformity SKIN: No rashes CENTRAL NERVOUS SYSTEM: No focal deficits, tone is normal in all 4 extremities. EXTREMITIES: Dressing to left foot dry and intact. There is trace peripheral edema. No clubbing, no cyanosis. Peripheral pulses are intact. - Labs CBC & Chem 7: 02/22/21 04:07 02/22/21 04:07 Labs: Abnormal Lab Results - Last 24 Hours (Table) 02/21/21 02/21/21 02/21/21 Range/Units 11:38 12:30 16:38 WBC (3.8-10.6) k/uL RBC (3.80-5.40) m/uL Hgb (11.4-16.0) gm/dL Hct (34.0-46.0) % Neutrophils # (1.3-7.7) k/uL Lymphocytes # (1.0-4.8) k/uL BUN (7-17) mg/dL Creatinine (0.52-1.04) mg/dL Glucose (74-99) mg/dL POC Glucose (mg/dL) 53 L 55 L 67 L (75-99) mg/dL Calcium (8.4-10.2) mg/dL 02/22/21 02/22/21 Range/Units 04:07 04:07 WBC 22.6 H (3.8-10.6) k/uL RBC 3.32 L (3.80-5.40) m/uL Hgb 9.2 L (11.4-16.0) gm/dL Hct 28.0 L (34.0-46.0) % Neutrophils # 21.6 H (1.3-7.7) k/uL Lymphocytes # 0.6 L (1.0-4.8) k/uL BUN 110 H* (7-17) mg/dL Creatinine 2.53 H (0.52-1.04) mg/dL Glucose 73 L (74-99) mg/dL POC Glucose (mg/dL) (75-99) mg/dL Calcium 8.1 L (8.4-10.2) mg/dL Microbiology - Last 24 Hours (Table) 02/20/21 09:35 Blood Culture - Preliminary Blood No Growth after 24 hours 02/20/21 09:42 Blood Culture - Preliminary Blood No Growth after 24 hours Assessment and Plan Assessment: 1 Acute hypoxemic respiratory failure secondary to fluid volume overload and jan ateral effusions,transferred to the intensive care unit 02/19/2021 and currently requiring BiPAP, Lasix drip. 2 Status post puncture wound to the left foot, which has become infected with methicillin sensitive staph aureus, amputated third toe. Currently on daptomycin 3 History of diabetes mellitus. 4 Non-anion gap metabolic acidosis, secondary to renal failure. 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 6 Mild hyperkalemia. 7 Anemia. Plan: The patient was seen and evaluated by Dr. Cosme X-ray and labs reviewed Increase IV Solu-Medrol to 60 mg every 6 hours Continue Lasix drip Titrate the FiO2 as tolerated Follow-up chest x-ray and labs in the a.m. We will continue to follow and make further recommendations based on her clinical status I, the cosigning physician, performed a history & physical examination of the patient. Lungs sounds with bilateral crackles in the posterior bases, dim inished. Maintaining good O2 saturations in the 90s on BiPAP 10/5 and 90% FiO2. I discussed the assessment and plan of care with my nurse practitioner, Ramila Guillen. I attest to the above note as dictated by her.
[2021-02-22 11:19] LABS: Glucose,Whole Blood 98 mg/dL (75-99)
[2021-02-22] MEDS: ALBUTEROL NEBULIZED 2.5 MG/3 ML INHALATION PRN (11:28)
[2021-02-22] MEDS: methylPREDNISolone SOD SUCCI 125 MG/2 ML VIAL IV SCH ×3 (12:39→23:01)
--- NOTE | 2021-02-22 13:09 | P.PN ---
Subjective Patient is seen in follow-up for acute kidney injury. She is being treated for left foot infection and underwent amputation of the third toe. She is on IV antibiotics. Maintained on Lasix drip. Nonoliguric. Currently on BiPAP. Chest x-ray suggestive of ARDS/pulmonary edema. Renal function is worse from diuresis. Vital signs are stable. General: The patient appeared well nourished and normally developed. HEENT: Head exam is unremarkable. On BiPAP. LUNGS: Breath sounds decreased. HEART: Rate and Rhythm are regular. ABDOMEN: Soft, obese. EXTREMITITES: 1+ edema. No drainage noted. Objective - Vital Signs Vital signs: Vital Signs Temp 98.6 F 02/22/21 08:00 Pulse 96 02/22/21 11:38 Resp 34 H 02/22/21 09:00 BP 116/60 02/22/21 09:00 Pulse Ox 91 L 02/22/21 09:00 Intake & Output 02/21/21 02/22/21 02/22/21 18:59 06:59 18:59 Intake Total 120 420 390 Output Total 2440 1550 300 Balance -2320 -1130 90 Weight 103.8 kg Intake: IV 20 120 30 0.9 20 120 30 Intake, IV Titration 100 100 Amount Furosemide 100 mg In 100 100 Sodium Chloride 0.9% 90 ml @ 10 MG/HR 10 mls/hr IV .Q10H [facility] Rx#: [id number] Oral 200 360 Output: Urine 2440 1550 300 Other: Voiding Method Indwelling Catheter Indwelling Catheter Indwelling Catheter - Labs CBC & Chem 7: 02/22/21 04:07 02/22/21 04:07 Labs: Abnormal Lab Results - Last 24 Hours (Table) 02/21/21 02/22/21 02/22/21 Range/Units 16:38 04:07 04:07 WBC 22.6 H (3.8-10.6) k/uL RBC 3.32 L (3.80-5.40) m/uL Hgb 9.2 L (11.4-16.0) gm/dL Hct 28.0 L (34.0-46.0) % Neutrophils # 21.6 H (1.3-7.7) k/uL Lymphocytes # 0.6 L (1.0-4.8) k/uL BUN 110 H* (7-17) mg/dL Creatinine 2.53 H (0.52-1.04) mg/dL Glucose 73 L (74-99) mg/dL POC Glucose (mg/dL) 67 L (75-99) mg/dL Calcium 8.1 L (8.4-10.2) mg/dL Microbiology - Last 24 Hours (Table) 02/20/21 09:35 Blood Culture - Preliminary Blood No Growth after 48 hours 02/20/21 09:42 Blood Culture - Preliminary Blood No Growth after 48 hours Assessment and Plan Plan: Assessment: 1. 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 Kidney biopsy also revealed acute tubular injury as well as diabetic changes. Serologies negative. Renal function worse from diuresis - creatinine 2.53 today. Baseline creatinine near 1. Urine eosinophils negative. No evidence of obstruction. 2. Hyperkalemia secondary to hyperglycemia. Also received Kayexalate. Improved. 3. Elevated BUN secondary to acute kidney injury as well as steroids. No evidence of GI bleed. 4. Left foot cellulitis with culture positive for staph aureus. Status post amputation of the left third toe. On antibiotics. 5. Benign hypertension. Controlled. 6. Diabetes mellitus. 7. Volume overload. Improving with diuresis. 8. Acute hypoxic respiratory failure secondary to volume overload/?ARDS - on IV steroids. 9. Metabolic acidosis secondary to acute kidney injury maintained on oral bicarb. Plan: Maintain Lasix drip at 10 mL an hour. Continue with treating the infection. Antibiotics per infectious disease. Avoid nephrotoxins. Continue to monitor renal function and urine output. Wean FiO2. Patient on IV steroids due to concern for ARDS. Stop sodium bicarb. Hold amlodipine and hydralazine for systolic blood pressure less than 120. Case discussed with the primary team.
[2021-02-22 17:13] LABS: Glucose,Whole Blood 165 mg/dL (75-99)
--- NOTE | 2021-02-22 18:15 | P.PN ---
Subjective Progress Note Date: 02/22/21 (delayed charting seen at 0830) Principal diagnosis: Headache Patient is a 61-year-old female with a history of diabetes, spinal fractures secondary to accident with history of surgery, and neuropathy who initially presented secondary to concerns for left foot infection. She was found to have staph aureus infection of her left third toe. She was seen by ID and vascular surgery. She was diagnosed with what saenz green of the left third toe and subsequently underwent an ray amputation of the left third toe. Initially she was progressing well. Plan had been for discharge home on oral antibiotics. However on day of discharge she had a significant increase in her creatinine. She also developed a diffuse papular rash with raised red lesion, and developed some shortness of breath. Chest x-ray showed pulmonary edema. There is also concern for possible pulmonary embolism and patient was started on a heparin drip. This was ruled out heparin drip was discontinued. Nephrology was consulted. She was continued on IV fluids. She then had progressive worsening of her shortness of breath and worsening interstitial infiltrate. She was seen by pulmonary who is concern for possible by basilar pneumonia. She had been started on doxycycline, No, and Zosyn with concern for allergic reaction to cefazolin . She was started on steroids. Her for possible pulmonary renal syndrome. The following testing was negative: urine eosinophils which were negative, KRANTHI which was positive, c-ANCA and p-ANCA both negative, anti-GBM negative. 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 She was started on aggressive diuresis secondary to acute fluid overload. Her kidney function improved with steroids. She again had worsening of her shortness of breath on 02/19 requiring replacement on BiPAP as well as initiation of Lasix drip. Patient seen and exemined at bedside with family present. She is feeling SOB and very tired, no nausea, no hungry General: Ill appearing, moderate distress, appears at stated age Derm: warm, dry Head: atraumatic, normocephalic, symmetric Eyes: EOMI, no lid lag, anicteric sclera Mouth: no lip lesion, mucus membranes moist Cardiovascular: S1S2 reg, no murmur, positive posterior tibial pulse bilateral, Lungs: Coarse breath sounds bilateral bilateral, no rhonchi, no rales , + accessory muscle use, on BiPAP Abdominal: soft, nontender to palpation, no guarding, no appreciable organomegaly Ext: no gross muscle atrophy, diffuse anasarca, no contractures Neuro: CN II-XI grossly intact, no focal neuro deficits Psych: Lethargic, oriented Acute renal failure due to 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 -Lasix drip -Oral sodium bicarb Acute hypoxic respiratory failure due to fluid overload, worsening Possible ARDS Vs PNA - add back solumedrol - Pulm Recs -continue with diuresis - ? Need to increase coverage with only dapto, awaiting response from ID Anemia -Patient's hemoglobin was normal on arrival. -I expect this is secondary to recurrent blood draws from prolonged hospital stay -Follow CBC -No signs of bleeding Wet gangrene of the left third toe, staph aureus -Status post ray amputation -Vascular surgery recommendations -Infectious disease recommendations -Daptomycin day #10 Leukocytosis -Suspect reactive to steroids -Continue to monitor closely DM 2, hypoglycemia - levemir and SSI - follow BS - A1C 8.1 Hypertension -Exacerbated by steroids -Continue with Norvasc Vitamin B 6 deficiency - B complex replacement Hyperkalemia Hypocalcemia Metabolic acidosis Severe frontal headache, resolved Severe sepsis without septic shock Objective - Vital Signs Vital signs: Vital Signs Temp 98.6 F 02/22/21 16:00 Pulse 87 02/22/21 17:00 Resp 31 H 02/22/21 17:00 BP 117/61 02/22/21 17:00 Pulse Ox 100 02/22/21 17:00 Intake & Output 02/21/21 02/22/21 02/22/21 18:59 06:59 18:59 Intake Total 120 420 950 Output Total 2440 1550 1075 Balance -2320 -1130 -125 Weight 103.8 kg 103.8 kg Intake: IV 20 120 110 0.9 20 120 110 Intake, IV Titration 100 100 Amount Furosemide 100 mg In 100 100 Sodium Chloride 0.9% 90 ml @ 10 MG/HR 10 mls/hr IV .Q10H [facility] Rx#: [id number] Oral 200 840 Output: Urine 2440 1550 1075 Other: Voiding Method Indwelling Catheter Indwelling Catheter Indwelling Catheter # Bowel Movements 1 - Labs CBC & Chem 7: 02/22/21 04:07 02/22/21 04:07 Labs: Abnormal Lab Results - Last 24 Hours (Table) 02/22/21 02/22/21 02/22/21 Range/Units 04:07 04:07 17:12 WBC 22.6 H (3.8-10.6) k/uL RBC 3.32 L (3.80-5.40) m/uL Hgb 9.2 L (11.4-16.0) gm/dL Hct 28.0 L (34.0-46.0) % Neutrophils # 21.6 H (1.3-7.7) k/uL Lymphocytes # 0.6 L (1.0-4.8) k/uL BUN 110 H* (7-17) mg/dL Creatinine 2.53 H (0.52-1.04) mg/dL Glucose 73 L (74-99) mg/dL POC Glucose (mg/dL) 165 H (75-99) mg/dL Calcium 8.1 L (8.4-10.2) mg/dL Microbiology - Last 24 Hours (Table) 02/20/21 09:35 Blood Culture - Preliminary Blood No Growth after 48 hours 02/20/21 09:42 Blood Culture - Preliminary Blood No Growth after 48 hours
[2021-02-22 20:23] LABS: Glucose,Whole Blood 194 mg/dL (75-99)
[2021-02-22] MEDS: INSULIN DETEMIR (LEVEMIR) 100 UNIT/ML SYR SQ SCH (20:27)
[2021-02-22] MEDS: PIPERACILLIN-TAZOBACTAM 3.375 GM in SODIUM CHLORIDE 0.9% 100 ML IVPB SCH (20:27)
[2021-02-23] MEDS: ALPRAZolam 0.5 MG TAB PO PRN ×3 (01:54→16:06)
[2021-02-23 02:01] LABS: Glucose,Whole Blood 262 mg/dL (75-99)
[2021-02-23] MEDS: PIPERACILLIN-TAZOBACTAM 3.375 GM in SODIUM CHLORIDE 0.9% 100 ML IVPB SCH ×2 (02:58→16:12)
[2021-02-23 04:35] LABS: HCT 27.2 % (34.0-46.0); HGB 8.9 gm/dL (11.4-16.0); MCHC 32.7 g/dL (31.0-37.0); MCV 85.6 fL (80.0-100.0); Platelet Count 204 k/uL (150-450); RBC 3.17 m/uL (3.80-5.40); RDW 14.4 % (11.5-15.5)
[2021-02-23] MEDS: FUROSEMIDE 100 MG in SODIUM CHLORIDE 0.9% 90 ML IV SCH ×3 (04:53→23:43)
[2021-02-23] MEDS: methylPREDNISolone SOD SUCCI 125 MG/2 ML VIAL IV SCH ×4 (04:54→23:43)
--- NOTE | 2021-02-23 05:15 | PN ---
PROGRESS NOTE DATE OF SERVICE: 02/22/2021 REASON FOR FOLLOWUP: 1. Left foot abscess. 2. Possible pneumonia. INTERVAL HISTORY: Patient is afebrile. The patient remains to be hemodynamically stable, not on pressor support. The patient still requiring a BiPAP. She was complaining of lethargy, unable to provide any history. No vomiting or diarrhea has been reported. PHYSICAL EXAMINATION: Blood pressure 107/56, pulse of 75. Temperature is 97.6. She is 93% on BiPAP. General description is a middle-aged female lying in bed in no distress. Respiratory system: Unlabored breathing, decreased breath sounds in the base. No wheeze. Heart S1, S2. Regular rate and rhythm. Abdomen soft, no tenderness. LABS: The patient did have a chest x-ray concerning for pneumonia, per Radiology. Valentin PCR was negative. Hemoglobin 9.8, white count 2.6, BUN 110, creatinine is 2.53. DIAGNOSTIC IMPRESSION AND PLAN: 1. Patient with left foot abscess and cellulitis status post amputation of third toe. Culture with MSSA. The patient is covered with daptomycin. 2. Patient now with concern for possible pneumonia. Sputum cultures has been requested and Zosyn will be added and adjusted further based on the culture report. Continue supportive care. MMODL / IJN: [id number] /
[2021-02-23 05:19] LABS: Calcium 7.7 mg/dL (8.4-10.2)
--- NOTE | 2021-02-23 05:48 | XR ---
EXAMINATION TYPE: XR chest 1V portable DATE OF EXAM: 02/23/2021 COMPARISON: 02/22/2021 HISTORY: Short of breath TECHNIQUE: FINDINGS: There is moderate diffuse pulmonary edema. There is right side central venous catheter with tip in th e right atrium. There are chest leads. Trachea is midline. IMPRESSION: Pulmonary airspace edema not significantly different than yesterday.
[2021-02-23 06:02] LABS: Glucose,Whole Blood 272 mg/dL (75-99)
[2021-02-23] MEDS: INSULIN ASPART (NovoLOG) 100 UNIT/ML VIAL SQ SCH ×5 (06:04→21:13)
[2021-02-23] MEDS: SODIUM BICARBONATE TAB 650 MG TAB PO SCH (06:11)
[2021-02-23] MEDS ORDERED: INSULIN DETEMIR (LEVEMIR) 100 UNIT/ML SYR SQ ONE (06:15)
[2021-02-23 06:38] LABS: Potassium 4.2 mmol/L (3.5-5.1)
[2021-02-23] MEDS ORDERED: INSULIN DETEMIR (LEVEMIR) 100 UNIT/ML SYR SQ SCH (07:00)
[2021-02-23] MEDS: hydrALAZINE HCL 25 MG TAB PO SCH ×3 (08:31→21:13)
[2021-02-23] MEDS: HEPARIN SODIUM,PORCINE/PF 5,000 UNIT/0.5 ML SYRINGE SQ SCH ×3 (08:31→23:42)
[2021-02-23] MEDS: CYANOCOBALAMIN 500 MCG TAB PO SCH (08:31)
--- NOTE | 2021-02-23 08:31 | P.PN ---
Subjective Patient is seen in follow-up for acute kidney injury. She is being treated for left foot infection and underwent amputation of the third toe. She is on IV antibiotics. Maintained on Lasix drip. Urine output lower - 40-60 mL an hour overnight. Currently on BiPAP. Chest x-ray suggestive of ARDS/pulmonary edema. Renal function is worse from diuresis. Vital signs are stable. General: The patient appeared well nourished and normally developed. HEENT: Head exam is unremarkable. On BiPAP. LUNGS: Breath sounds decreased. HEART: Rate and Rhythm are regular. ABDOMEN: Soft, obese. EXTREMITITES: 2+ edema. No drainage noted. Objective - Vital Signs Vital signs: Vital Signs Temp 97.5 F L 02/23/21 04:00 Pulse 67 02/23/21 07:00 Resp 27 H 02/23/21 07:00 BP 116/68 02/23/21 07:00 Pulse Ox 95 02/23/21 07:00 Intake & Output 02/22/21 02/23/21 02/23/21 18:59 06:59 18:59 Intake Total 960 511.833 10 Output Total 1175 770 50 Balance -215 -258.167 -40 Weight 103.8 kg 102.5 kg Intake: IV 120 120 10 0.9 120 120 10 Intake, IV Titration 391.833 Amount Furosemide 100 mg In 191.833 Sodium Chloride 0.9% 90 ml @ 10 MG/HR 10 mls/hr IV .Q10H [facility] Rx#: [id number] Piperacillin-Tazobactam 3 200 .375 gm In Sodium Chloride 0.9% 100 ml @ 25 mls/hr IVPB Q8H [facility] Rx#: [id number] Oral 840 Output: Urine 1175 770 50 Other: Voiding Method Indwelling Catheter Indwelling Catheter # Bowel Movements 1 1 - Labs CBC & Chem 7: 02/23/21 04:09 02/23/21 04:09 Labs: Abnormal Lab Results - Last 24 Hours (Table) 02/22/21 02/22/21 02/22/21 Range/Units 17:12 18:42 20:21 WBC (3.8-10.6) k/uL RBC (3.80-5.40) m/uL Hgb (11.4-16.0) gm/dL Hct (34.0-46.0) % BUN (7-17) mg/dL Creatinine (0.52-1.04) mg/dL Glucose (74-99) mg/dL POC Glucose (mg/dL) 165 H 194 H (75-99) mg/dL Calcium (8.4-10.2) mg/dL Procalcitonin 5.57 H (0.02-0.09) ng/mL 02/23/21 02/23/21 02/23/21 Range/Units 02:00 04:09 04:09 WBC 12.0 H (3.8-10.6) k/uL RBC 3.17 L (3.80-5.40) m/uL Hgb 8.9 L (11.4-16.0) gm/dL Hct 27.2 L (34.0-46.0) % BUN 130 H* (7-17) mg/dL Creatinine 2.78 H (0.52-1.04) mg/dL Glucose 262 H (74-99) mg/dL POC Glucose (mg/dL) 262 H (75-99) mg/dL Calcium 7.7 L (8.4-10.2) mg/dL Procalcitonin (0.02-0.09) ng/mL 02/23/21 Range/Units 06:00 WBC (3.8-10.6) k/uL RBC (3.80-5.40) m/uL Hgb (11.4-16.0) gm/dL Hct (34.0-46.0) % BUN (7-17) mg/dL Creatinine (0.52-1.04) mg/dL Glucose (74-99) mg/dL POC Glucose (mg/dL) 272 H (75-99) mg/dL Calcium (8.4-10.2) mg/dL Procalcitonin (0.02-0.09) ng/mL Microbiology - Last 24 Hours (Table) 02/20/21 09:35 Blood Culture - Preliminary Blood No Growth after 48 hours 02/20/21 09:42 Blood Culture - Preliminary Blood No Growth after 48 hours Assessment and Plan Plan: Assessment: 1. 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 Kidney biopsy also revealed acute tubular injury as well as diabetic changes. Serologies negative. Renal function worse from diuresis - creatinine 2.76 today. Baseline creatinine near 1. Urine eosinophils negative. No evidence of obstruction. 2. Hyperkalemia secondary to hyperglycemia. Also received Kayexalate. Improved. 3. Elevated BUN secondary to acute kidney injury as well as steroids. No evidence of GI bleed. 4. Left foot cellulitis with culture positive for staph aureus. Status post amputation of the left third toe. On antibiotics. 5. Benign hypertension. Controlled. 6. Diabetes mellitus. 7. Volume overload. 8. Acute hypoxic respiratory failure secondary to volume overload/?ARDS - on IV steroids. 9. Metabolic acidosis secondary to acute kidney injury. Improved. Plan: Maintain Lasix drip at 10 mL an hour. Continue with treating the infection. Antibiotics per infectious disease. Avoid nephrotoxins. Continue to monitor renal function and urine output. Wean FiO2. Patient on IV steroids due to concern for ARDS. Due to significant hypervolemia despite Lasix drip, initiated renal replacement therapy. Patient is agreeable. Consult vascular surgery for dialysis catheter placement. Plan for first treatment of UF today and again tomorrow.
[2021-02-23] MEDS: FAMOTIDINE 20 MG TAB PO SCH (08:32)
[2021-02-23] MEDS: PREGABALIN 75 MG CAP PO SCH ×2 (08:32→21:13)
[2021-02-23] MEDS: FOLIC ACID 1 MG TAB PO SCH (08:32)
[2021-02-23] MEDS: amLODIPine 5 MG TAB PO SCH (08:32)
[2021-02-23] MEDS: ALBUTEROL NEBULIZED 2.5 MG/3 ML INHALATION PRN ×3 (08:51→19:44)
[2021-02-23] MEDS: COLLAGENASE 250 UNIT/GM OINTMENT 30 GM TUBE TOPICAL SCH (09:14)
[2021-02-23] MEDS: HYDROCORTISONE 1% CREAM 454 GM JAR TOPICAL SCH ×3 (09:14→21:14)
--- NOTE | 2021-02-23 11:00 | P.PN ---
Subjective Progress Note Date: 02/23/21 Pt has no new complaints today. BUN/Cr worsening from diuretics and ATN + exudative GN. Pt still BIPAP dependent. Afebrile last 24 hours. WBC count improving to 12. Pt is on daptomycin for MRSA toe infection and zosyn for concern of pneumonia. Steroids for ARDS Objective - Vital Signs Vital signs: Vital Signs Temp 96.9 F L 02/23/21 09:00 Pulse 80 02/23/21 10:00 Resp 26 H 02/23/21 10:00 BP 108/54 02/23/21 10:00 Pulse Ox 90 L 02/23/21 10:00 Intake & Output 02/22/21 02/23/21 02/23/21 18:59 06:59 18:59 Intake Total 960 511.833 270 Output Total 1175 770 200 Balance -215 -258.167 70 Weight 103.8 kg 102.5 kg Intake: IV 120 120 30 0.9 120 120 30 Intake, IV Titration 391.833 Amount Furosemide 100 mg In 191.833 Sodium Chloride 0.9% 90 ml @ 10 MG/HR 10 mls/hr IV .Q10H [facility] Rx#: [id number] Piperacillin-Tazobactam 3 200 .375 gm In Sodium Chloride 0.9% 100 ml @ 25 mls/hr IVPB Q8H [facility] Rx#: [id number] Oral 840 240 Output: Urine 1175 770 200 Other: Voiding Method Indwelling Catheter Indwelling Catheter # Bowel Movements 1 1 - Exam Gen: awake, alert HEENT: normocephalic, atraumatic, good hearing acuity, moist mucous membranes Resp: impaired air exchange, in moderate distress from dyspnea CVS: good distal perfusion x 4, GI: soft, NTTP, ND : no SPT, no CVAT, méndez catheter is present MSK: no pitting edema, no clubbing Neuro: non-focal, moving all extremities Psych: cooperative, euthymic mood - Labs CBC & Chem 7: 02/23/21 04:09 02/23/21 04:09 Labs: Abnormal Lab Results - Last 24 Hours (Table) 02/22/21 02/22/21 02/22/21 Range/Units 17:12 18:42 20:21 WBC (3.8-10.6) k/uL RBC (3.80-5.40) m/uL Hgb (11.4-16.0) gm/dL Hct (34.0-46.0) % BUN (7-17) mg/dL Creatinine (0.52-1.04) mg/dL Glucose (74-99) mg/dL POC Glucose (mg/dL) 165 H 194 H (75-99) mg/dL Calcium (8.4-10.2) mg/dL Procalcitonin 5.57 H (0.02-0.09) ng/mL 02/23/21 02/23/21 02/23/21 Range/Units 02:00 04:09 04:09 WBC 12.0 H (3.8-10.6) k/uL RBC 3.17 L (3.80-5.40) m/uL Hgb 8.9 L (11.4-16.0) gm/dL Hct 27.2 L (34.0-46.0) % BUN 130 H* (7-17) mg/dL Creatinine 2.78 H (0.52-1.04) mg/dL Glucose 262 H (74-99) mg/dL POC Glucose (mg/dL) 262 H (75-99) mg/dL Calcium 7.7 L (8.4-10.2) mg/dL Procalcitonin (0.02-0.09) ng/mL 02/23/21 Range/Units 06:00 WBC (3.8-10.6) k/uL RBC (3.80-5.40) m/uL Hgb (11.4-16.0) gm/dL Hct (34.0-46.0) % BUN (7-17) mg/dL Creatinine (0.52-1.04) mg/dL Glucose (74-99) mg/dL POC Glucose (mg/dL) 272 H (75-99) mg/dL Calcium (8.4-10.2) mg/dL Procalcitonin (0.02-0.09) ng/mL Microbiology - Last 24 Hours (Table) 02/20/21 09:35 Blood Culture - Preliminary Blood No Growth after 48 hours 02/20/21 09:42 Blood Culture - Preliminary Blood No Growth after 48 hours Assessment and Plan Assessment: Acute renal failure due to 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 -I expect this is secondary to recurrent blood draws from prolonged hospital stay -Follow CBC -No signs of bleeding Wet gangrene of the left third toe, staph aureus -Status post ray amputation -Vascular surgery recommendations -Infectious disease recommendations -Daptomycin day #11 DM 2, hypoglycemia - levemir and SSI - follow BS - A1C 8.1 Hypertension -Exacerbated by steroids -Continue with Norvasc Vitamin B 6 deficiency - B complex replacement Hyperkalemia Hypocalcemia Metabolic acidosis Severe frontal headache, resolved Severe sepsis without septic shock
--- NOTE | 2021-02-23 11:07 | P.PN ---
Subjective HISTORY OF PRESENTING ILLNESS This is a pleasant 61-year-old female past medical history significant for diabetes mellitus. 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 We have been asked to see in consultation for pulmonary edema. She initially presented to the hospital on 01/31 with complaints of headache and draining wound on her foot. 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 She is currently in ICU on bipap for respiratory support. She was sta red on a lasix infusion yesterday due to worsening fluid overload. She is seen and examined sitting up in no acute distress. She is answering questions appropriately. She complains of feeling more short of breath over the last 2 days. She has no chest pain, dizziness or palpitations. Initial EKG on admission reveals SR with no evidence of ischemia. Yesterday's chest xray showed diffuse bilateral airspace disease. Laboratory data reviewed, WBC 20.3, hemoglobin 9.6, platelets 299, sodium 141, potassium 4.7, creatinine 2.24, NT proBNP 3280, magnesium 1.8. Echocardiogram obtained on this admission reveals preserved LV systolic function with ejection fraction greater than 55%. Currently maintained on amlodipine 5 mg daily and hydralazine 25 mg 3 times a day. She has had significant urine output in the last 72 hours. Last 24 hours was over 4.5 liters. 02/23/2021 Patient seen and examined sitting in bed. She continues to be maintained on BiPAP support. Her urine output has decreased in the previous 24 hours. Nephrology is initiating dialysis today. Blood pressure 108/54 heart rate 88 afebrile maintaining oxygen saturation on BiPAP. Laboratory data reviewed, WBC 12, hgb 8.9, plt 204, sodium 139, potassium 4.2, creatinine 2.78. Telemetry tracings revealed SR. Chest xray revealed pulmonary airspace edema with no significant improvement from yesterday. PHYSICAL EXAMINATION CONSTITUTIONAL: No apparent distress. HEENT: Head is normocephalic. Pupils are equal, round. Sclerae anicteric. Mucous membranes of the mouth are moist. No JVD. Bilateral carotid bruit. CHEST EXAMINATION: Crackles appreciated in the upper lobes with decreased air exchange at the bases. No chest wall tenderness is noted on palpation or with deep breathing. HEART EXAMINATION: Regular rate and rhythm. S1, S2 heard. No murmurs, gallops or rub. EXTREMITIES: 2+ peripheral pulses, 2+ bilateral lower extremity pitting edema and no calf tenderness. ASSESSMENT Hypoxic respiratory failure Acute fluid overload secondary to renal failure Leukocytosis Acute kidney failure White gangrene status post toe amputation Diabetes mellitus Hypertension PLAN Continue diuresis management per nephrology along with dialysis. We we will follow along as needed, please call with further questions or concerns. Nurse Practitioner note has been reviewed, I agree with a documented findings and plan of care. Patient was seen and examined. Objective - Vital Signs Vital signs: Vital Signs Temp 96.9 F L 02/23/21 09:00 Pulse 80 02/23/21 10:00 Resp 26 H 02/23/21 10:00 BP 108/54 02/23/21 10:00 Pulse Ox 90 L 02/23/21 10:00 Intake & Output 02/22/21 02/23/21 02/23/21 18:59 06:59 18:59 Intake Total 960 511.833 270 Output Total 1175 770 200 Balance -215 -258.167 70 Weight 103.8 kg 102.5 kg Intake: IV 120 120 30 0.9 120 120 30 Intake, IV Titration 391.833 Amount Furosemide 100 mg In 191.833 Sodium Chloride 0.9% 90 ml @ 10 MG/HR 10 mls/hr IV .Q10H [facility] Rx#: [id number] Piperacillin-Tazobactam 3 200 .375 gm In Sodium Chloride 0.9% 100 ml @ 25 mls/hr IVPB Q8H [facility] Rx#: [id number] Oral 840 240 Output: Urine 1175 770 200 Other: Voiding Method Indwelling Catheter Indwelling Catheter Indwelling Catheter # Bowel Movements 1 1 - Labs CBC & Chem 7: 02/23/21 04:09 02/23/21 04:09 Labs: Abnormal Lab Results - Last 24 Hours (Table) 02/22/21 02/22/21 02/22/21 Range/Units 17:12 18:42 20:21 WBC (3.8-10.6) k/uL RBC (3.80-5.40) m/uL Hgb (11.4-16.0) gm/dL Hct (34.0-46.0) % BUN (7-17) mg/dL Creatinine (0.52-1.04) mg/dL Glucose (74-99) mg/dL POC Glucose (mg/dL) 165 H 194 H (75-99) mg/dL Calcium (8.4-10.2) mg/dL Procalcitonin 5.57 H (0.02-0.09) ng/mL 02/23/21 02/23/21 02/23/21 Range/Units 02:00 04:09 04:09 WBC 12.0 H (3.8-10.6) k/uL RBC 3.17 L (3.80-5.40) m/uL Hgb 8.9 L (11.4-16.0) gm/dL Hct 27.2 L (34.0-46.0) % BUN 130 H* (7-17) mg/dL Creatinine 2.78 H (0.52-1.04) mg/dL Glucose 262 H (74-99) mg/dL POC Glucose (mg/dL) 262 H (75-99) mg/dL Calcium 7.7 L (8.4-10.2) mg/dL Procalcitonin (0.02-0.09) ng/mL 02/23/21 Range/Units 06:00 WBC (3.8-10.6) k/uL RBC (3.80-5.40) m/uL Hgb (11.4-16.0) gm/dL Hct (34.0-46.0) % BUN (7-17) mg/dL Creatinine (0.52-1.04) mg/dL Glucose (74-99) mg/dL POC Glucose (mg/dL) 272 H (75-99) mg/dL Calcium (8.4-10.2) mg/dL Procalcitonin (0.02-0.09) ng/mL Microbiology - Last 24 Hours (Table) 02/20/21 09:35 Blood Culture - Preliminary Blood No Growth after 48 hours 02/20/21 09:42 Blood Culture - Preliminary Blood No Growth after 48 hours
--- NOTE | 2021-02-23 12:18 | P.PN ---
Subjective Progress Note Date: 02/23/21 Principal diagnosis: On 02/15/2021 patient seen in follow-up on medical surgical floor. She is awake, in no acute distress. She is currently on 4 L of oxygen, her pulse ox is 95%, afebrile. Continues on doxycycline and Zosyn. Cultures have shown no growth thus far, wound from the third left toe was positive for MSSA. Patient remains on oral prednisone for possibility of acute interstitial nephritis. The kidney biopsy was performed today. Patient is nonoliguric. Overall her fluid volume overload improved with diuretics. She is breathing comfortably, she is not producing any phlegm. Denies any chest discomfort. Patient continues on Norvasc, and she has required calcium channel blockers for blood pressure control in addition to hydralazine. The blood pressure is improved. IV steroids have been transitioned to oral prednisone. On 02/23/2001 patient seen in follow-up in the intensive care unit. She remains on BiPAP support with pressures of 12 and 5, and FiO2 of 80%, her O2 saturation is 96%, is afebrile, hemodynamically she is stable, she remains on Lasix infusion every to 10 mg per hour, and 0.9 normal saline at 10 ML per hour, her net fluid balance is negative for 473 mL over the last 24 hours, much less then previous few days. Her weight is down by 1.3 kg in the last 24 hours. She remains on daptomycin for staph infection and cellulitis of the left lower leg and left third toe. No fever or chills overnight, she continues on Solu-Medrol 60 mg every 6 hours for possibility of ARDS. Today's chest x-ray has been reviewed showing moderate diffuse pulmonary edema not significantly changed from the day before. His labs have been reviewed, and with blood cell count has significantly improved and is down to 12.0, hemoglobin is 8.9, electrolytes are within normal limits, renal profile is slightly worse, and creatinine is up to 2.78, and BUN is 130. Patient has had limited oral intake in view of being BiPAP dependent most of the time. Despite that she looks fairly comfortable on BiPAP support, awake and alert, she is answering questions appropriately, denies any chest discomfort, lung sounds are distant with scattered crackles Objective - Vital Signs Vital signs: Vital Signs Temp 96.9 F L 02/23/21 09:00 Pulse 80 09/16/21 10:00 Resp 26 H 02/23/21 10:00 BP 108/54 02/23/21 10:00 Pulse Ox 90 L 02/23/21 10:00 Intake & Output 02/22/21 02/23/21 02/23/21 18:59 06:59 18:59 Intake Total 960 511.833 270 Output Total 1175 770 200 Balance -215 -258.167 70 Weight 103.8 kg 102.5 kg Intake: IV 120 120 30 0.9 120 120 30 Intake, IV Titration 391.833 Amount Furosemide 100 mg In 191.833 Sodium Chloride 0.9% 90 ml @ 10 MG/HR 10 mls/hr IV .Q10H [facility] Rx#: [id number] Piperacillin-Tazobactam 3 200 .375 gm In Sodium Chloride 0.9% 100 ml @ 25 mls/hr IVPB Q8H [facility] Rx#: [id number] Oral 840 240 Output: Urine 1175 770 200 Other: Voiding Method Indwelling Catheter Indwelling Catheter Indwelling Catheter # Bowel Movements 1 1 - Exam GENERAL EXAM: Alert, very pleasant, 61-year-old female, on BiPAP support with pressures of 12 and 5 and FiO2 of 80%, and the pulse ox of 96% comfortable in no apparent distress. HEAD: Normocephalic/atraumatic. EYES: Normal reaction of pupils, equal size. Conjunctiva pink, sclera white. NOSE: Clear with pink turbinates. THROAT: No erythema or exudates. NECK: No masses, no JVD, no thyroid enlargement, no adenopathy. CHEST: No chest wall deformity. Symmetrical expansion. LUNGS: Equal air entry with dim breath sounds and diffuse crackles CVS: Regular rate and rhythm, normal S1 and S2, no gallops, no murmurs, no rubs ABDOMEN: Soft, nontender. No hepatosplenomegaly, normal bowel sounds, no guarding or rigidity. EXTREMITIES: No clubbing, mild pretibial edema, no cyanosis, 2+ pulses and upper and lower extremities. MUSCULOSKELETAL: Muscle strength and tone normal. SPINE: No scoliosis or deformity SKIN: No rashes, cellulitis in the left foot, left third toe amputation site is covered with a dressing CENTRAL NERVOUS SYSTEM: Alert and oriented -3. No focal deficits, tone is normal in all 4 extremities. PSYCHIATRIC: Alert and oriented -3. Appropriate affect. Intact judgment and insight. - Labs CBC & Chem 7: 02/23/21 04:09 02/23/21 04:09 Labs: Abnormal Lab Results - Last 24 Hours (Table) 02/22/21 02/22/21 02/22/21 Range/Units 17:12 18:42 20:21 WBC (3.8-10.6) k/uL RBC (3.80-5.40) m/uL Hgb (11.4-16.0) gm/dL Hct (34.0-46.0) % BUN (7-17) mg/dL Creatinine (0.52-1.04) mg/dL Glucose (74-99) mg/dL POC Glucose (mg/dL) 165 H 194 H (75-99) mg/dL Calcium (8.4-10.2) mg/dL Procalcitonin 5.57 H (0.02-0.09) ng/mL 02/23/21 02/23/21 02/23/21 Range/Units 02:00 04:09 04:09 WBC 12.0 H (3.8-10.6) k/uL RBC 3.17 L (3.80-5.40) m/uL Hgb 8.9 L (11.4-16.0) gm/dL Hct 27.2 L (34.0-46.0) % BUN 130 H* (7-17) mg/dL Creatinine 2.78 H (0.52-1.04) mg/dL Glucose 262 H (74-99) mg/dL POC Glucose (mg/dL) 262 H (75-99) mg/dL Calcium 7.7 L (8.4-10.2) mg/dL Procalcitonin (0.02-0.09) ng/mL 02/23/21 Range/Units 06:00 WBC (3.8-10.6) k/uL RBC (3.80-5.40) m/uL Hgb (11.4-16.0) gm/dL Hct (34.0-46.0) % BUN (7-17) mg/dL Creatinine (0.52-1.04) mg/dL Glucose (74-99) mg/dL POC Glucose (mg/dL) 272 H (75-99) mg/dL Calcium (8.4-10.2) mg/dL Procalcitonin (0.02-0.09) ng/mL Microbiology - Last 24 Hours (Table) 02/20/21 09:35 Blood Culture - Preliminary Blood No Growth after 72 hours 02/20/21 09:42 Blood Culture - Preliminary Blood No Growth after 72 hours Assessment and Plan Plan: Assessment: #1. Hypoxic respiratory failure, multifactorial, related to acute pulmonary edema, and component of ARDS secondary to MRSA infection, cellulitis, and exudative glomerulonephropathy nephritis, patient currently remains on BiPAP support, with pressures of 12 and 5 and FiO2 of 80%. Possibility of pneumonia is a consideration although seems to be less likely. Patient has been on Lasix infusion for the past few days, high-dose IV steroids have been added #2. Status post puncture wound to the left foot, which has become infected with methicillin sensitive staph aureus, he remains on daptomycin #3. History of diabetes mellitus. #4. Non-anion gap metabolic acidosis, secondary to renal failure. #5. Acute kidney injury related to MRSA infection, exudative glomerulonephropat hy, be initiated on hemodialysis today #6. Mild hyperkalemia, resolved #7. Anemia. Plan: Continue BiPAP support at previous settings, patient can be placed on high flow oxygen for meals, and placed back on BiPAP support Chest x-ray continues to show pulmonary edema, not significantly different from yesterday Continues on Lasix, nephrology is planning on initiating hemodialysis today Continue high-dose IV steroids Continue antibiotics Continue weaning FiO2 to keep O2 sats at 90 or 92% We'll continue close monitoring in the intensive care unit Follow-up chest x-ray and labs in the morning I performed a history & physical examination of the patient and discussed their management with my nurse practitioner, Stefania Quiñonez. I reviewed the nurse practitioner's note and agree with the documented findings and plan of care. Lung sounds are positive for diminished breath sounds throughout the lung hair. The findings and the impression was discussed with the patient. I attest to the documentation by the nurse practitioner. Time with Patient: Greater than 30
[2021-02-23 13:21] LABS: Glucose,Whole Blood 289 mg/dL (75-99)
[2021-02-23] MEDS: DAPTOmycin 500 MG in SODIUM CHLORIDE 0.9% 50 ML IVPB SCH (13:28)
--- NOTE | 2021-02-23 15:17 | CONS ---
DATE OF CONSULTATION: 02/23/2021 This is a 61-year-old female, well known to me. The patient came with cellulitis and gangrene changes of her toe. The patient went for ray amputation. Patient is on IV antibiotic and local wound care. I was consulted for placement of her dialysis catheter. The patient had developed acute kidney injury. Patient is in the intensive care unit on BiPAP. Her past medical history is positive for history of diabetes. Patient had a kidney biopsy and workup by Nephrology. The patient needs dialysis. We will arrange for the dialysis today. MMODL / IJN: [id number] / [email or web address]
[2021-02-23 16:18] LABS: Glucose,Whole Blood 205 mg/dL (75-99)
--- NOTE | 2021-02-23 16:54 | OP ---
OPERATIVE REPORT PREOPERATIVE DIAGNOSIS: Acute on chronic renal failure. POSTOPERATIVE DIAGNOSIS: Acute on chronic renal failure. PROCEDURE PERFORMED: Ultrasound-guided dialysis catheter placed, right femoral approach. PROCEDURE DESCRIPTION: The patient was seen in the intensive care unit. Right groin was prepped and draped in sterile manner, and 1% lidocaine was infiltrated into the groin area. Micropuncture was introduced in the right femoral vein, ultrasound-guided. Micropuncture guidewire was passed and a 4-Moz[place]ican dilator was advanced on top of the guidewire. Then we passed a regular guidewire without any resistance. The dilator was advanced and dialysis catheter was advanced on top of the guidewire. Guidewire was removed, flushed with heparin saline and hep-locked, secured with 3-0 nylon. Patient tolerated the procedure well. MMODL / IJN: [id number] /
[2021-02-23] MEDS: BUTALB/APAP/CAFF 50-325-40MG TAB PO PRN (17:43)
[2021-02-23 21:11] LABS: Glucose,Whole Blood 331 mg/dL (75-99)
[2021-02-23] MEDS: INSULIN DETEMIR (LEVEMIR) 100 UNIT/ML SYR SQ SCH (21:13)
--- NOTE | 2021-02-23 22:45 | PN ---
PROGRESS NOTE DATE OF SERVICE: 02/23/2021 REASON FOR FOLLOWUP: 1. Left foot cellulitis and abscess. 2. Possible pneumonia. INTERVAL HISTORY: The patient was seen on rounds this morning. The patient has been afebrile. The patient remains BiPAP-dependent. Vascular surgery has been consulted for dialysis catheter placement. Denies any chest pain. No worsening cough. No abdominal pain or diarrhea. PHYSICAL EXAMINATION: Blood pressure 109/54, pulse 85, temperature 97.6. She is 95% on BiPAP. GENERAL DESCRIPTION: General description is a middle-aged female lying in bed in no distress. RESPIRATORY SYSTEM: Unlabored breathing. Decreased intensity of breath sounds. No wheeze. HEART: S1, S2. Regular rate and rhythm. ABDOMEN: Soft. No tenderness. Left foot is currently dressed. No obvious drainage on the dressing. LABS: Hemoglobin 8.9, white count 12. BUN of 130, creatinine is 2.78. DIAGNOSTIC IMPRESSION AND PLAN: 1. Patient with left foot abscess, cellulitis, status post amputation of the third toe. Culture positive for MSSA. The patient is currently covered with daptomycin, as there was some concern for possible which has been ruled out. 2. Possible pneumonia. Has been started on Zosyn and did have overall improvement as far as her white count is concerned. Try to obtain a sputum sample and monitor her clinical course closely. MMODL / IJN: [id number] /
[2021-02-24 02:10] LABS: Glucose,Whole Blood 284 mg/dL (75-99)
[2021-02-24] MEDS: PIPERACILLIN-TAZOBACTAM 3.375 GM in SODIUM CHLORIDE 0.9% 100 ML IVPB SCH ×2 (03:56→16:40)
[2021-02-24] MEDS: BENZONATATE 100 MG CAP PO PRN ×2 (04:19→21:24)
[2021-02-24 05:03] LABS: Basophils % (A) 0 %; Eosinophils % (A) 0 %; HGB 9.4 gm/dL (11.4-16.0); Lymphocytes # (A) 0.2 k/uL (1.0-4.8); Lymphocytes % (A) 1 %; MCH 27.6 pg (25.0-35.0); MCHC 32.6 g/dL (31.0-37.0); MCV 84.6 fL (80.0-100.0); Mean Platelet Volume 8.5; Monocytes # (A) 0.3 k/uL (0-1.0); Monocytes % (A) 2 %; Neutrophils # (A) 13.1 k/uL (1.3-7.7); Neutrophils % (A) 97 %; Platelet Count 210 k/uL (150-450); RBC 3.43 m/uL (3.80-5.40); RDW 14.5 % (11.5-15.5); WBC 13.5 k/uL (3.8-10.6)
[2021-02-24 05:19] LABS: Albumin 2.4 g/dL (3.5-5.0); Calcium 7.9 mg/dL (8.4-10.2); Potassium 4.3 mmol/L (3.5-5.1); Total Bilirubin 0.4 mg/dL (0.2-1.3); Total Protein 5.3 g/dL (6.3-8.2)
[2021-02-24 06:27] LABS: Glucose,Whole Blood 297 mg/dL (75-99)
[2021-02-24] MEDS: INSULIN ASPART (NovoLOG) 100 UNIT/ML VIAL SQ SCH ×4 (06:31→21:24)
[2021-02-24] MEDS: INSULIN DETEMIR (LEVEMIR) 100 UNIT/ML SYR SQ SCH ×2 (06:31→21:24)
[2021-02-24] MEDS: methylPREDNISolone SOD SUCCI 125 MG/2 ML VIAL IV SCH ×4 (06:31→23:52)
[2021-02-24] MEDS: FOLIC ACID 1 MG TAB PO SCH (07:57)
[2021-02-24] MEDS: amLODIPine 5 MG TAB PO SCH (07:57)
[2021-02-24] MEDS: HEPARIN SODIUM,PORCINE/PF 5,000 UNIT/0.5 ML SYRINGE SQ SCH ×3 (07:57→23:52)
[2021-02-24] MEDS: FAMOTIDINE 20 MG TAB PO SCH (07:57)
[2021-02-24] MEDS: PREGABALIN 75 MG CAP PO SCH ×2 (07:57→21:25)
[2021-02-24] MEDS: CYANOCOBALAMIN 500 MCG TAB PO SCH (07:57)
[2021-02-24] MEDS: HYDROCORTISONE 1% CREAM 454 GM JAR TOPICAL SCH ×3 (07:58→21:25)
[2021-02-24] MEDS: COLLAGENASE 250 UNIT/GM OINTMENT 30 GM TUBE TOPICAL SCH (07:58)
--- NOTE | 2021-02-24 08:19 | XR ---
EXAMINATION TYPE: XR chest 1V portable DATE OF EXAM: 02/24/2021 COMPARISON: Chest x-ray 02/23/2021 HISTORY: Congestion, abnormal chest x-ray TECHNIQUE: Single frontal view of the chest is obtained. FINDINGS: Findings are similar to prior exam. Tip of the right PICC line is in the right atrium. No pneumothorax or evident effusion. Heart is likely stable but partially obscured. IMPRESSION: Diffuse airspace disease persists.
--- NOTE | 2021-02-24 09:06 | P.PN ---
Subjective Patient is seen in follow-up for acute kidney injury. She is being treated for left foot infection and underwent amputation of the third toe. She is on IV antibiotics. Maintained on Lasix drip. Urine output 30-40 mL an hour. Currently off BiPAP but O2 sats are low. Chest x-ray suggestive of ARDS/pulmonary edema. Renal function stable. Started on UF only treatments 02/23/21. Vital signs are stable. General: The patient appeared well nourished and normally developed. HEENT: Head exam is unremarkable. LUNGS: Breath sounds decreased. HEART: Rate and Rhythm are regular. ABDOMEN: Soft, obese. EXTREMITITES: 2+ edema. No drainage noted. Objective - Vital Signs Vital signs: Vital Signs Temp 97.8 F 02/24/21 04:00 Pulse 73 02/24/21 07:00 Resp 28 H 02/24/21 07:00 BP 105/56 02/24/21 07:00 Pulse Ox 91 L 02/24/21 07:00 Intake & Output 02/23/21 02/24/21 02/24/21 18:59 06:59 18:59 Intake Total 965.833 532.5 10 Output Total 3565 360 45 Balance -2599.167 172.5 -35 Weight 102.1 kg Intake: IV 120 120 10 0.9 120 120 10 Intake, IV Titration 245.833 92.5 Amount DAPTOmycin 500 mg In 50 Sodium Chloride 0.9% 50 ml @ 100 mls/hr IVPB Q48H [facility] Rx#:[id number] Furosemide 100 mg In 95.833 92.5 Sodium Chloride 0.9% 90 ml @ 10 MG/HR 10 mls/hr IV .Q10H [facility] Rx#: [id number] Piperacillin-Tazobactam 3 100 .375 gm In Sodium Chloride 0.9% 100 ml @ 25 mls/hr IVPB Q12H [facility] Rx# :[id number] Oral 600 320 Output: Urine 565 360 45 Hemodialysis 3000 Other: Voiding Method Indwelling Catheter Indwelling Catheter - Labs CBC & Chem 7: 02/24/21 04:10 02/24/21 04:10 Labs: Abnormal Lab Results - Last 24 Hours (Table) 02/23/21 02/23/21 02/23/21 Range/Units 13:20 16:16 21:09 WBC (3.8-10.6) k/uL RBC (3.80-5.40) m/uL Hgb (11.4-16.0) gm/dL Hct (34.0-46.0) % Neutrophils # (1.3-7.7) k/uL Lymphocytes # (1.0-4.8) k/uL BUN (7-17) mg/dL Creatinine (0.52-1.04) mg/dL Glucose (74-99) mg/dL POC Glucose (mg/dL) 289 H 205 H 331 H (75-99) mg/dL Calcium (8.4-10.2) mg/dL Total Protein (6.3-8.2) g/dL Albumin (3.5-5.0) g/dL 02/24/21 02/24/21 02/24/21 Range/Units 02:08 04:10 04:10 WBC 13.5 H (3.8-10.6) k/uL RBC 3.43 L (3.80-5.40) m/uL Hgb 9.4 L (11.4-16.0) gm/dL Hct 29.0 L (34.0-46.0) % Neutrophils # 13.1 H (1.3-7.7) k/uL Lymphocytes # 0.2 L (1.0-4.8) k/uL BUN 106 H* (7-17) mg/dL Creatinine 2.42 H (0.52-1.04) mg/dL Glucose 287 H (74-99) mg/dL POC Glucose (mg/dL) 284 H (75-99) mg/dL Calcium 7.9 L (8.4-10.2) mg/dL Total Protein 5.3 L (6.3-8.2) g/dL Albumin 2.4 L (3.5-5.0) g/dL 02/24/21 Range/Units 06:26 WBC (3.8-10.6) k/uL RBC (3.80-5.40) m/uL Hgb (11.4-16.0) gm/dL Hct (34.0-46.0) % Neutrophils # (1.3-7.7) k/uL Lymphocytes # (1.0-4.8) k/uL BUN (7-17) mg/dL Creatinine (0.52-1.04) mg/dL Glucose (74-99) mg/dL POC Glucose (mg/dL) 297 H (75-99) mg/dL Calcium (8.4-10.2) mg/dL Total Protein (6.3-8.2) g/dL Albumin (3.5-5.0) g/dL Microbiology - Last 24 Hours (Table) 02/20/21 09:35 Blood Culture - Preliminary Blood No Growth after 72 hours 02/20/21 09:42 Blood Culture - Preliminary Blood No Growth after 72 hours Assessment and Plan Plan: Assessment: 1. 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 Kidney biopsy also revealed acute tubular injury as well as diabetic changes. Serologies negative. Renal function stable - creatinine 2.42 today. Baseline creatinine near 1. Urine eosinophils negative. No evidence of obstruction. 2. Hyperkalemia secondary to hyperglycemia. Also received Kayexalate. Improved. 3. Elevated BUN secondary to acute kidney injury as well as steroids. No evidence of GI bleed. 4. Left foot cellulitis with culture positive for staph aureus. Status post amputation of the left third toe. On antibiotics. 5. Benign hypertension. Controlled. 6. Diabetes mellitus. 7. Volume overload. Improving with diuresis and UF. 8. Acute hypoxic respiratory failure secondary to volume overload/?ARDS - on IV steroids. 9. Metabolic acidosis secondary to acute kidney injury. Improved. Plan: Maintain Lasix drip at 10 mL an hour. Continue with treating the infection. Antibiotics per infectious disease. Avoid nephrotoxins. Continue to monitor renal function and urine output. Wean FiO2. Patient on IV steroids due to concern for ARDS. Due to significant hypervolemia despite Lasix drip, started UF only treatments on 02/23/21 - tolerated 3L UF yesterday. Second treatment of UF today and again tomorrow. Stop amlodipine as BP on lower side.
--- NOTE | 2021-02-24 09:30 | P.PN ---
Subjective Progress Note Date: 02/24/21 Pt was able to tolerate being off of BIPAP for 30 minutes with saturations in the mid 80s. She has no new complaints today. Was able to tolerate a diet. Had UF of 3L yesterday, plan for UF again today. CXR shows diffuse non- cardiogenic pulmonary edema. Pt remains on lasix gtt, steroids, abx. Objective - Vital Signs Vital signs: Vital Signs Temp 97.8 F 02/24/21 04:00 Pulse 73 02/24/21 07:00 Resp 28 H 02/24/21 07:00 BP 105/56 02/24/21 07:00 Pulse Ox 91 L 02/24/21 07:00 Intake & Output 02/23/21 02/24/21 02/24/21 18:59 06:59 18:59 Intake Total 965.833 532.5 10 Output Total 3565 360 45 Balance -2599.167 172.5 -35 Weight 102.1 kg Intake: IV 120 120 10 0.9 120 120 10 Intake, IV Titration 245.833 92.5 Amount DAPTOmycin 500 mg In 50 Sodium Chloride 0.9% 50 ml @ 100 mls/hr IVPB Q48H [facility] Rx#:[id number] Furosemide 100 mg In 95.833 92.5 Sodium Chloride 0.9% 90 ml @ 10 MG/HR 10 mls/hr IV .Q10H [facility] Rx#: [id number] Piperacillin-Tazobactam 3 100 .375 gm In Sodium Chloride 0.9% 100 ml @ 25 mls/hr IVPB Q12H [facility] Rx# :[id number] Oral 600 320 Output: Urine 565 360 45 Hemodialysis 3000 Other: Voiding Method Indwelling Catheter Indwelling Catheter - Exam Gen: awake, alert HEENT: normocephalic, atraumatic, good hearing acuity, moist mucous membranes Resp: impaired air exchange, in moderate distress from dyspnea, diffuse crackles in posterior lung hair CVS: good distal perfusion x 4, RRR, no murmurs GI: soft, NTTP, ND : no SPT, no CVAT, méndez catheter is present MSK: 2+pitting edema, no clubbing Neuro: non-focal, moving all extremities Psych: cooperative, euthymic mood - Labs CBC & Chem 7: 02/24/21 04:10 02/24/21 04:10 Labs: Abnormal Lab Results - Last 24 Hours (Table) 02/23/21 02/23/21 02/23/21 Range/Units 13:20 16:16 21:09 WBC (3.8-10.6) k/uL RBC (3.80-5.40) m/uL Hgb (11.4-16.0) gm/dL Hct (34.0-46.0) % Neutrophils # (1.3-7.7) k/uL Lymphocytes # (1.0-4.8) k/uL BUN (7-17) mg/dL Creatinine (0.52-1.04) mg/dL Glucose (74-99) mg/dL POC Glucose (mg/dL) 289 H 205 H 331 H (75-99) mg/dL Calcium (8.4-10.2) mg/dL Total Protein (6.3-8.2) g/dL Albumin (3.5-5.0) g/dL 02/24/21 02/24/21 02/24/21 Range/Units 02:08 04:10 04:10 WBC 13.5 H (3.8-10.6) k/uL RBC 3.43 L (3.80-5.40) m/uL Hgb 9.4 L (11.4-16.0) gm/dL Hct 29.0 L (34.0-46.0) % Neutrophils # 13.1 H (1.3-7.7) k/uL Lymphocytes # 0.2 L (1.0-4.8) k/uL BUN 106 H* (7-17) mg/dL Creatinine 2.42 H (0.52-1.04) mg/dL Glucose 287 H (74-99) mg/dL POC Glucose (mg/dL) 284 H (75-99) mg/dL Calcium 7.9 L (8.4-10.2) mg/dL Total Protein 5.3 L (6.3-8.2) g/dL Albumin 2.4 L (3.5-5.0) g/dL 02/24/21 Range/Units 06:26 WBC (3.8-10.6) k/uL RBC (3.80-5.40) m/uL Hgb (11.4-16.0) gm/dL Hct (34.0-46.0) % Neutrophils # (1.3-7.7) k/uL Lymphocytes # (1.0-4.8) k/uL BUN (7-17) mg/dL Creatinine (0.52-1.04) mg/dL Glucose (74-99) mg/dL POC Glucose (mg/dL) 297 H (75-99) mg/dL Calcium (8.4-10.2) mg/dL Total Protein (6.3-8.2) g/dL Albumin (3.5-5.0) g/dL Microbiology - Last 24 Hours (Table) 02/20/21 09:35 Blood Culture - Preliminary Blood No Growth after 72 hours 02/20/21 09:42 Blood Culture - Preliminary Blood No Growth after 72 hours Assessment and Plan Assessment: Acute renal failure due to 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 -I expect this is secondary to recurrent blood draws from prolonged hospital stay -Follow CBC -No signs of bleeding Wet gangrene of the left third toe, MSSA -Status post ray amputation -Vascular surgery recommendations -Infectious disease recommendations -Daptomycin day #12 -CK, LFTs level for toxicity monitoring -consider narrowing to Nafcillin vs First gen cephalosporin vs ceftriaxone to cover MSSA and possible HCAP as above DM 2, hypoglycemia - levemir and SSI - follow BS - A1C 8.1 Hypertension -Exacerbated by steroids -Continue with Norvasc -added hydralazine 25mg TID Vitamin B 6 deficiency - B complex replacement Hyperkalemia Hypocalcemia Metabolic acidosis Severe frontal headache, resolved Severe sepsis without septic shock
[2021-02-24] MEDS: hydrALAZINE HCL 25 MG TAB PO SCH ×3 (11:32→21:25)
[2021-02-24] MEDS: FUROSEMIDE 100 MG in SODIUM CHLORIDE 0.9% 90 ML IV SCH ×2 (11:37→21:22)
[2021-02-24 11:56] LABS: Glucose,Whole Blood 203 mg/dL (75-99)
--- NOTE | 2021-02-24 13:06 | P.PN ---
Subjective Progress Note Date: 02/24/21 Principal diagnosis: Acute pulmonary edema 61-year-old who presented to the emergency department on January 31, with headache, possible seizure, and also possible infection to the left foot. The patient had apparently not been feeling well for about 3-4 days prior to admission. She had a right-sided occipital headache. In addition, she apparently stepped on a stick in the yard, and developed some redness and drainage from the left foot. In addition, the patient apparently had a low- grade fever. The patient does have a history of diabetes mellitus. She recently moved to [place], from [place]. She has no doctor in this area. Anyway, over the last few days, she's been complaining of shortness of breath. Her oxygen requirements have been going up, and a chest x-ray showed bilateral infiltrates and possibly effusions, as well as a computed tomography scan showing bilateral pleural effusions, and bibasilar infiltrates and atelectasis, left greater than right. For that reason, we were consulted. The patient was on AIRVO at 45 L/m with an FiO2 of 56%. She did not appear to be particularly short of breath. The patient did state that since being on the AIRVO, she has felt better. She does have a cough, which is nonproductive. She denies any chest pain or chest discomfort. She also denies any fever or chills. Her chest x-ray and CAT scan are reviewed. White count 10.5, hemoglobin 9.9, hematocrit 30.8, and platelet count 411,000. Sed rate is 99. Sodium 134, potassium 5.4, chlorides 107, CO2 16, anion gap 11, BUN 88, and creatinine 3.31. Calcium 7.9, phosphorus 7.2. Venous Dopplers of the bilateral lower extremities were negative for DVT. A perfusion lung scan was low probability for PE. A chest x- ray done on the fifth, showed bilateral basilar infiltrates, left greater than right, with more dense consolidation in the left lower lobe. CAT scan of the chest showed bilateral pleural effusions, with extensive bilateral pneumonia and lower lobe atelectasis. COVID testing was negative, and the pro-calcitonin level was a bit elevated at 0.36. The patient is seen today 02/14/2021 in follow-up on the regular medical floor. She is currently sitting up in a chair at the bedside. Awake, alert in no acute distress. She states she is breathing a little bit better today compared to yesterday. She has been converted from the AirVo high flow oxygen back to 8 L high flow nasal cannula. O2 saturations at 95%. She's afebrile. Hemodynami matti stable. Left foot wound cultures positive for MSSA. Follow-up blood cultures revealing no growth. Ultrasound of the chest does reveal a 7.8 cm pocket on the right and a 10.4 cm pocket on the left. Marked for possible thoracentesis. Echocardiogram revealed preserved left ventricular systolic function with ejection fraction 55%. No valvular heart disease. White count 17.4. Hemoglobin 9.4. Sodium 132. Potassium 5.1. Bicarb 20.5. BUN 97. Creatinine 2.9. GFR 17. Glucose 239. Being worked up for possible vasculitis, possible interstitial nephritis. ANCA pending. Possible kidney biopsy today. Remains on D5W with 3 A of bicarb at 50 MLS per hour along with oral bicarb. Antibiotics in the form of Vibramycin, daptomycin, Zosyn. This patient was last seen by us on 02/14/2021, however the patient had so many other issues being addressed by many other consultants, and her main issue was mostly related to her cellulitis, and acute kidney injury. Dr. Corbett has signed off the case on 02/14, and last night I was called about this patient developing worsening shortness of breath, she was evaluated by the rapid response team, and she was clearly in pulmonary edema. Patient was placed on BiPAP, and I recommended immediate transfer to the ICU. I saw this patient today in the ICU, she is on BiPAP, and she is definitely in pulmonary edema. Patient is on IPAP of 10 and EPAP of 5 and FiO2 of 60%, and she is in moderate respiratory distress. She is receiving antibiotics in the form of daptomycin for her cellulitis of the foot, and she received earlier a Lasix dose of 60 mg IV push, and I recommended a Lasix drip at 10 mg per hour. Discussed her condition with her boyfriend at bedside, and made aware that the patient's condition is quite serious, and the patient may end up requiring intubation and mechanical ventilation if she doesn't improve much with Lasix drip. Labs today showed leukocytosis with WBC of 23.2 hemoglobin 9.5. BUN is up to 120 creatinine is 2.16. On 02/23/2021 patient seen in follow-up in the intensive care unit. She remains on BiPAP support with pressures of 12 and 5, and FiO2 of 80%, her O2 saturation is 96%, is afebrile, hemodynamically she is stable, she remains on Lasix infusion every to 10 mg per hour, and 0.9 normal saline at 10 ML per hour, her net fluid balance is negative for 473 mL over the last 24 hours, much less then previous few days. Her weight is down by 1.3 kg in the last 24 hours. She remains on daptomycin for staph infection and cellulitis of the left lower leg and left third toe. No fever or chills overnight, she continues on Solu-Medrol 60 mg every 6 hours for possibility of ARDS. Today's chest x-ray has been reviewed showing moderate diffuse pulmonary edema not significantly changed from the day before. His labs have been reviewed, and with blood cell count has significantly improved and is down to 12.0, hemoglobin is 8.9, electrolytes are within normal limits, renal profile is slightly worse, and creatinine is up to 2.78, and BUN is 130. Patient has had limited oral intake in view of being BiPA P dependent most of the time. Despite that she looks fairly comfortable on BiPAP support, awake and alert, she is answering questions appropriately, denies any chest discomfort, lung sounds are distant with scattered crackles On 02/24/2021, a shunt remains in the ICU, remains very marginal at best. Patient had dialysis done yesterday. Remains on Lasix at 10 mg per hour. Remains on Solu-Medrol 60 mg IV push every 6 hours. Remains on BiPAP with IPAP of 12 and EPAP of 6 FiO2 is 80% today. Patient had 3 L removed with ultrafiltration yesterday. Remains on daptomycin and Zosyn. Clinically the patient is feeling better, but chest x-ray is not showing much of the significant change. I believe the findings on the chest x-ray are mostly related to ARDS secondary to her initial episode of sepsis and cellulitis involving her left foot. WBC count is 13.5 hemoglobin 9.4 lites are normal BUN is 106 creatinine 2.42. Objective - Vital Signs Vital signs: Vital Signs Temp 97.0 F L 02/24/21 08:00 Pulse 70 02/24/21 11:00 Resp 28 H 02/24/21 11:00 BP 103/55 02/24/21 11:00 Pulse Ox 92 L 02/24/21 11:00 Intake & Output 02/23/21 02/24/21 02/24/21 18:59 06:59 18:59 Intake Total 965.833 532.5 400 Output Total 3565 360 245 Balance -2599.167 172.5 155 Weight 102.1 kg 102.1 kg Intake: IV 120 120 60 0.9 120 120 60 Intake, IV Titration 245.833 92.5 100 Amount DAPTOmycin 500 mg In 50 Sodium Chloride 0.9% 50 ml @ 100 mls/hr IVPB Q48H ERIC Rx#:[id number] Furosemide 100 mg In 95.833 92.5 100 Sodium Chloride 0.9% 90 ml @ 10 MG/HR 10 mls/hr IV .Q10H ERIC Rx#: [id number] Piperacillin-Tazobactam 3 100 .375 gm In Sodium Chloride 0.9% 100 ml @ 25 mls/hr IVPB Q12H ERIC Rx# :[id number] Oral 600 320 240 Output: Urine 565 360 245 Hemodialysis 3000 Other: Voiding Method Indwelling Catheter Indwelling Catheter Indwelling Catheter - Exam GENERAL EXAM: Revealed a 61-year-old female in moderate distress, on BiPAP. 12/6/80%. HEAD: Normocephalic. EYES: Normal reaction of pupils, equal size. NOSE: Clear with pink turbinates. THROAT: No erythema or exudates. NECK: No masses, no JVD. CHEST: No chest wall deformity. LUNGS: Symmetrical chest expansion, crackles and rhonchi noted bilaterally. CVS: S1 and S2 normal with no audible murmur, regular rhythm. ABDOMEN: No hepatosplenomegaly, normal bowel sounds, no guarding or rigidity. SKIN: No rashes CENTRAL NERVOUS SYSTEM: No focal deficits, tone is normal in all 4 extremities. EXTREMITIES: Evidence of amputation of the third toe on the left foot noted. Dressing to left foot dry and intact. There is 3+ bipedal edema. - Labs CBC & Chem 7: 02/24/21 04:10 02/24/21 04:10 Labs: Abnormal Lab Results - Last 24 Hours (Table) 02/23/21 02/23/21 02/23/21 Range/Units 13:20 16:16 21:09 WBC (3.8-10.6) k/uL RBC (3.80-5.40) m/uL Hgb (11.4-16.0) gm/dL Hct (34.0-46.0) % Neutrophils # (1.3-7.7) k/uL Lymphocytes # (1.0-4.8) k/uL BUN (7-17) mg/dL Creatinine (0.52-1.04) mg/dL Glucose (74-99) mg/dL POC Glucose (mg/dL) 289 H 205 H 331 H (75-99) mg/dL Calcium (8.4-10.2) mg/dL Creatine Kinase (30-135) U/L Total Protein (6.3-8.2) g/dL Albumin (3.5-5.0) g/dL 02/24/21 02/24/21 02/24/21 Range/Units 02:08 04:10 04:10 WBC 13.5 H (3.8-10.6) k/uL RBC 3.43 L (3.80-5.40) m/uL Hgb 9.4 L (11.4-16.0) gm/dL Hct 29.0 L (34.0-46.0) % Neutrophils # 13.1 H (1.3-7.7) k/uL Lymphocytes # 0.2 L (1.0-4.8) k/uL BUN 106 H* (7-17) mg/dL Creatinine 2.42 H (0.52-1.04) mg/dL Glucose 287 H (74-99) mg/dL POC Glucose (mg/dL) 284 H (75-99) mg/dL Calcium 7.9 L (8.4-10.2) mg/dL Creatine Kinase (30-135) U/L Total Protein 5.3 L (6.3-8.2) g/dL Albumin 2.4 L (3.5-5.0) g/dL 02/24/21 02/24/21 02/24/21 Range/Units 04:10 06:26 11:54 WBC (3.8-10.6) k/uL RBC (3.80-5.40) m/uL Hgb (11.4-16.0) gm/dL Hct (34.0-46.0) % Neutrophils # (1.3-7.7) k/uL Lymphocytes # (1.0-4.8) k/uL BUN (7-17) mg/dL Creatinine (0.52-1.04) mg/dL Glucose (74-99) mg/dL POC Glucose (mg/dL) 297 H 203 H (75-99) mg/dL Calcium (8.4-10.2) mg/dL Creatine Kinase 25 L (30-135) U/L Total Protein (6.3-8.2) g/dL Albumin (3.5-5.0) g/dL Microbiology - Last 24 Hours (Table) 02/20/21 09:35 Blood Culture - Preliminary Blood No Growth after 96 hours 02/20/21 09:42 Blood Culture - Preliminary Blood No Growth after 96 hours Assessment and Plan Assessment: Impression: Acute hypoxic respiratory failure secondary to acute pulmonary edema, and fluid overload secondary to acute kidney injury. Also secondary to ARDS. Secondary to sepsis. 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 Type 2 diabetes. Status post puncture wound to the left foot resulting in infection with methicillin sensitive staph aureus. Status post amputation of the left third toe. Chronic anemia. History of puncture wound to the left foot with infection secondary to MSSA. Recommendation: Continue to monitor the patient in the ICU. Continue BiPAP for now. Titrate FiO2 accordingly. Continue hemodialysis. Lasix drip at 10 mg per hour. Continue antibiotics as per infectious disease on the case. Patient is presently on Zosyn, off daptomycin. Continue steroids Solu-Medrol 60 mg IV push every 6 hours. Patient's condition remains critical. Prognosis is extremely guarded. We will continue to follow. Critical care time is over 30 minutes. Time with Patient: Greater than 30
[2021-02-24 16:32] LABS: Glucose,Whole Blood 170 mg/dL (75-99)
--- NOTE | 2021-02-24 17:36 | PN ---
PROGRESS NOTE DATE OF SERVICE: 02/24/2021 REASON FOR FOLLOWUP: Left foot abscess, cellulitis and pneumonia. INTERVAL HISTORY: The patient is afebrile. The patient is breathing comfortably. The patient remains on BiPAP no chest pain or any worsening cough. No abdominal pain or diarrhea. PHYSICAL EXAMINATION: Blood pressure 103/55, pulse of 72, temperature 98. She is 92% on BiPAP. GENERAL DESCRIPTION: General description is a middle-aged female lying in bed in no distress. RESPIRATORY SYSTEM: Unlabored breathing. Decreased breath sounds at the bases. No wheeze. HEART: S1, S2. Regular rate and rhythm. ABDOMEN: Soft. No tenderness. LABS: Hemoglobin is 9.4, white count 13.5. BUN of 106, creatinine 2.42. Blood culture has been negative. DIAGNOSTIC IMPRESSION AND PLAN: Patient with left foot abscess, cellulitis secondary to MSSA, status post left third toe amputation in this patient who subsequently developed renal failure, now with worsening respiratory status concerning for possible pneumonia, covered with Zosyn. That should take care of both cellulitis as well as pneumonia. Discontinue daptomycin. Discussed with the admitting services. MMODL / IJN: [id number] /
[2021-02-24] MEDS: BUTALB/APAP/CAFF 50-325-40MG TAB PO PRN (19:03)
[2021-02-24 21:07] LABS: Glucose,Whole Blood 279 mg/dL (75-99)
[2021-02-25 02:15] LABS: Glucose,Whole Blood 304 mg/dL (75-99)
[2021-02-25] MEDS: PIPERACILLIN-TAZOBACTAM 3.375 GM in SODIUM CHLORIDE 0.9% 100 ML IVPB SCH ×2 (04:19→15:32)
[2021-02-25 05:43] LABS: Basophils % (A) 0 %; Eosinophils % (A) 0 %; HCT 27.5 % (34.0-46.0); HGB 8.9 gm/dL (11.4-16.0); Lymphocytes # (A) 0.3 k/uL (1.0-4.8); Lymphocytes % (A) 3 %; MCHC 32.4 g/dL (31.0-37.0); MCV 83.4 fL (80.0-100.0); Mean Platelet Volume 9.1; Monocytes # (A) 0.2 k/uL (0-1.0); Monocytes % (A) 2 %; Neutrophils # (A) 10.2 k/uL (1.3-7.7); Neutrophils % (A) 95 %; Platelet Count 191 k/uL (150-450); RDW 14.6 % (11.5-15.5); WBC 10.7 k/uL (3.8-10.6)
[2021-02-25 06:01] LABS: Potassium 4.3 mmol/L (3.5-5.1)
[2021-02-25 06:02] LABS: Glucose,Whole Blood 273 mg/dL (75-99)
[2021-02-25] MEDS: FUROSEMIDE 100 MG in SODIUM CHLORIDE 0.9% 90 ML IV SCH ×2 (06:08→14:59)
[2021-02-25] MEDS: methylPREDNISolone SOD SUCCI 125 MG/2 ML VIAL IV SCH ×4 (06:09→23:06)
[2021-02-25] MEDS: INSULIN ASPART (NovoLOG) 100 UNIT/ML VIAL SQ SCH ×4 (06:59→21:04)
[2021-02-25] MEDS: INSULIN DETEMIR (LEVEMIR) 100 UNIT/ML SYR SQ SCH (07:00)
--- NOTE | 2021-02-25 07:27 | XR ---
EXAMINATION TYPE: XR chest 1V portable DATE OF EXAM: 02/25/2021 COMPARISON: 02/24/2021 HISTORY: 61 years Female. STUDY INDICATION GIVEN: Congestion . TECHNIQUE: AP chest radiograph IMPRESSION: Right upper extremity PICC stable in position the tip terminates at the cavoatrial junction. Diffuse bilateral airspace disease and moderate -severe pulmonary edema with trace left pleural effus ion, slightly improved compared to prior. Stable cardiomediastinal silhouette. No pneumothorax. Osseous structures are stable compared to prior.
[2021-02-25] MEDS: hydrALAZINE HCL 25 MG TAB PO SCH ×3 (08:13→21:05)
[2021-02-25] MEDS: FOLIC ACID 1 MG TAB PO SCH (08:13)
[2021-02-25] MEDS: COLLAGENASE 250 UNIT/GM OINTMENT 30 GM TUBE TOPICAL SCH (08:13)
[2021-02-25] MEDS: PREGABALIN 75 MG CAP PO SCH ×2 (08:13→21:05)
[2021-02-25] MEDS: CYANOCOBALAMIN 500 MCG TAB PO SCH (08:13)
[2021-02-25] MEDS: FAMOTIDINE 20 MG TAB PO SCH (08:13)
[2021-02-25] MEDS: HEPARIN SODIUM,PORCINE/PF 5,000 UNIT/0.5 ML SYRINGE SQ SCH ×3 (08:13→23:06)
[2021-02-25] MEDS: HYDROCORTISONE 1% CREAM 454 GM JAR TOPICAL SCH ×3 (08:14→21:06)
--- NOTE | 2021-02-25 09:39 | PN ---
PROGRESS NOTE Patient is seen for followup for acute kidney injury and volume overload. 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 Patient is currently maintained on ultrafiltration. She will be having her third treatment today. She is also maintained on Lasix drip. Urine output per hour has been at about 50-35 cc an hour. PHYSICAL EXAMINATION: On examination today, blood pressure 126/64, heart rate 75 per minute, patient is afebrile. Examination of the heart S1, S2. Examination of the lungs, decreased breath sounds bases. Basal crackles heard. Abdomen: Soft, nontender, obese. Exam of lower extremities shows edema 2+ bilaterally. [employer] exam grossly intact. LAB: Show sodium 136, potassium 4.3, chloride 103, BUN 96, creatinine 2.36, hemoglobin 8.9. ASSESSMENT: 1. 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 Patient will be having her third treatment of ultrafiltration today. We have not been doing dialysis, only ultrafiltration. She continues to be on Lasix drip. Urine output maintained a 50-35 cc an hour. 2. Hyperkalemia associated with hyperglycemia status post Kayexalate, currently improved. 3. Disproportionately elevated BUN secondary to steroids. No evidence of GI bleed. 4. Left foot cellulitis with cultures positive for Staph aureus, status post amputation of left third toe, maintained on antibiotics. 5. Acute hypoxic respiratory failure secondary to volume overload/possible ARDS, maintained on IV steroids, receiving daily ultrafiltration and maintained on Lasix drip for volume overload. 6. Metabolic acidosis associated with acute kidney injury. PLAN: Continue with Lasix drip. UF about 3 L again today. We will reassess tomorrow for need for ultrafiltration. MMODL / IJN: [id number] /
[2021-02-25 11:16] LABS: Glucose,Whole Blood 224 mg/dL (75-99)
--- NOTE | 2021-02-25 12:33 | P.PN ---
Subjective Progress Note Date: 02/25/21 Principal diagnosis: Acute pulmonary edema 61-year-old who presented to the emergency department on January 31, with headache, possible seizure, and also possible infection to the left foot. The patient had apparently not been feeling well for about 3-4 days prior to admission. She had a right-sided occipital headache. In addition, she apparently stepped on a stick in the yard, and developed some redness and drainage from the left foot. In addition, the patient apparently had a low- grade fever. The patient does have a history of diabetes mellitus. She recently moved to [place], from [place]. She has no doctor in this area. Anyway, over the last few days, she's been complaining of shortness of breath. Her oxygen requirements have been going up, and a chest x-ray showed bilateral infiltrates and possibly effusions, as well as a computed tomography scan showing bilateral pleural effusions, and bibasilar infiltrates and atelectasis, left greater than right. For that reason, we were consulted. The patient was on AIRVO at 45 L/m with an FiO2 of 56%. She did not appear to be particularly short of breath. The patient did state that since being on the AIRVO, she has felt better. She does have a cough, which is nonproductive. She denies any chest pain or chest discomfort. She also denies any fever or chills. Her chest x-ray and CAT scan are reviewed. White count 10.5, hemoglobin 9.9, hematocrit 30.8, and platelet count 411,000. Sed rate is 99. Sodium 134, potassium 5.4, chlorides 107, CO2 16, anion gap 11, BUN 88, and creatinine 3.31. Calcium 7.9, phosphorus 7.2. Venous Dopplers of the bilateral lower extremities were negative for DVT. A perfusion lung scan was low probability for PE. A chest x- ray done on the fifth, showed bilateral basilar infiltrates, left greater than right, with more dense consolidation in the left lower lobe. CAT scan of the chest showed bilateral pleural effusions, with extensive bilateral pneumonia and lower lobe atelectasis. COVID testing was negative, and the pro-calcitonin level was a bit elevated at 0.36. The patient is seen today 02/14/2021 in follow-up on the regular medical floor. She is currently sitting up in a chair at the bedside. Awake, alert in no acute distress. She states she is breathing a little bit better today compared to yesterday. She has been converted from the AirVo high flow oxygen back to 8 L high flow nasal cannula. O2 saturations at 95%. She's afebrile. Hemodynami matti stable. Left foot wound cultures positive for MSSA. Follow-up blood cultures revealing no growth. Ultrasound of the chest does reveal a 7.8 cm pocket on the right and a 10.4 cm pocket on the left. Marked for possible thoracentesis. Echocardiogram revealed preserved left ventricular systolic function with ejection fraction 55%. No valvular heart disease. White count 17.4. Hemoglobin 9.4. Sodium 132. Potassium 5.1. Bicarb 20.5. BUN 97. Creatinine 2.9. GFR 17. Glucose 239. Being worked up for possible vasculitis, possible interstitial nephritis. ANCA pending. Possible kidney biopsy today. Remains on D5W with 3 A of bicarb at 50 MLS per hour along with oral bicarb. Antibiotics in the form of Vibramycin, daptomycin, Zosyn. This patient was last seen by us on 02/14/2021, however the patient had so many other issues being addressed by many other consultants, and her main issue was mostly related to her cellulitis, and acute kidney injury. Dr. Corbett has signed off the case on 02/14, and last night I was called about this patient developing worsening shortness of breath, she was evaluated by the rapid response team, and she was clearly in pulmonary edema. Patient was placed on BiPAP, and I recommended immediate transfer to the ICU. I saw this patient today in the ICU, she is on BiPAP, and she is definitely in pulmonary edema. Patient is on IPAP of 10 and EPAP of 5 and FiO2 of 60%, and she is in moderate respiratory distress. She is receiving antibiotics in the form of daptomycin for her cellulitis of the foot, and she received earlier a Lasix dose of 60 mg IV push, and I recommended a Lasix drip at 10 mg per hour. Discussed her condition with her boyfriend at bedside, and made aware that the patient's condition is quite serious, and the patient may end up requiring intubation and mechanical ventilation if she doesn't improve much with Lasix drip. Labs today showed leukocytosis with WBC of 23.2 hemoglobin 9.5. BUN is up to 120 creatinine is 2.16. On 02/23/2021 patient seen in follow-up in the intensive care unit. She remains on BiPAP support with pressures of 12 and 5, and FiO2 of 80%, her O2 saturation is 96%, is afebrile, hemodynamically she is stable, she remains on Lasix infusion every to 10 mg per hour, and 0.9 normal saline at 10 ML per hour, her net fluid balance is negative for 473 mL over the last 24 hours, much less then previous few days. Her weight is down by 1.3 kg in the last 24 hours. She remains on daptomycin for staph infection and cellulitis of the left lower leg and left third toe. No fever or chills overnight, she continues on Solu-Medrol 60 mg every 6 hours for possibility of ARDS. Today's chest x-ray has been reviewed showing moderate diffuse pulmonary edema not significantly changed from the day before. His labs have been reviewed, and with blood cell count has significantly improved and is down to 12.0, hemoglobin is 8.9, electrolytes are within normal limits, renal profile is slightly worse, and creatinine is up to 2.78, and BUN is 130. Patient has had limited oral intake in view of being BiPA P dependent most of the time. Despite that she looks fairly comfortable on BiPAP support, awake and alert, she is answering questions appropriately, denies any chest discomfort, lung sounds are distant with scattered crackles On 02/24/2021, a shunt remains in the ICU, remains very marginal at best. Patient had dialysis done yesterday. Remains on Lasix at 10 mg per hour. Remains on Solu-Medrol 60 mg IV push every 6 hours. Remains on BiPAP with IPAP of 12 and EPAP of 6 FiO2 is 80% today. Patient had 3 L removed with ultrafiltration yesterday. Remains on daptomycin and Zosyn. Clinically the patient is feeling better, but chest x-ray is not showing much of the significant change. I believe the findings on the chest x-ray are mostly related to ARDS secondary to her initial episode of sepsis and cellulitis involving her left foot. WBC count is 13.5 hemoglobin 9.4 lites are normal BUN is 106 creatinine 2.42. Reevaluated today on 02/25/2021, remains in the ICU, patient was on BiPAP last night, however she was transitioned to airvo this morning, she is on 90% FiO2 and 55 L flow. She is undergoing hemodialysis during my evaluation, and the plan is to remove 3 L. Remains on Lasix at 10 mg per hour. Patient is feeling better, chest x-ray showed slight improvement in her noncardiogenic pulmonary edema. Remains on steroids, remains on antibiotics, I believe there is slight improvement noted today WBC count is 10.7 hemoglobin 8.9 electrolytes are normal BUN is down to 96 creatinine is down to 2.36 Objective - Vital Signs Vital signs: Vital Signs Temp 97.6 F 02/25/21 08:00 Pulse 65 02/25/21 11:00 Resp 26 H 02/25/21 11:00 BP 128/60 02/25/21 11:00 Pulse Ox 94 L 02/25/21 11:00 Intake & Output 02/24/21 02/25/21 02/25/21 18:59 06:59 18:59 Intake Total 820 645.167 40 Output Total 455 480 215 Balance 365 165.167 -175 Weight 102.1 kg 97.5 kg Intake: IV 120 120 40 0.9 120 120 40 Intake, IV Titration 100 185.167 Amount Furosemide 100 mg In 100 185.167 Sodium Chloride 0.9% 90 ml @ 10 MG/HR 10 mls/hr IV .Q10H [facility] Rx#: [id number] Oral 600 340 Output: Urine 455 480 215 Other: Voiding Method Indwelling Catheter Indwelling Catheter Indwelling Catheter - Exam GENERAL EXAM: Revealed a 61-year-old female not in distress,, on aivo HEAD: Normocephalic. EYES: Normal reaction of pupils, equal size. NOSE: Clear with pink turbinates. THROAT: No erythema or exudates. NECK: No masses, no JVD. CHEST: No chest wall deformity. LUNGS: Symmetrical chest expansion, crackles and rhonchi noted bilaterally. CVS: S1 and S2 normal with no audible murmur, regular rhythm. ABDOMEN: No hepatosplenomegaly, normal bowel sounds, no guarding or rigidity. SKIN: No rashes CENTRAL NERVOUS SYSTEM: No focal deficits, tone is normal in all 4 extremities. EXTREMITIES: Evidence of amputation of the third toe on the left foot noted. Dressing to left foot dry and intact. There is 3+ bipedal edema. - Labs CBC & Chem 7: 02/25/21 04:53 02/25/21 04:53 Labs: Abnormal Lab Results - Last 24 Hours (Table) 02/24/21 02/24/21 02/25/21 Range/Units 16:31 21:05 02:13 WBC (3.8-10.6) k/uL RBC (3.80-5.40) m/uL Hgb (11.4-16.0) gm/dL Hct (34.0-46.0) % Neutrophils # (1.3-7.7) k/uL Lymphocytes # (1.0-4.8) k/uL Sodium (137-145) mmol/L BUN (7-17) mg/dL Creatinine (0.52-1.04) mg/dL Glucose (74-99) mg/dL POC Glucose (mg/dL) 170 H 279 H 304 H (75-99) mg/dL Calcium (8.4-10.2) mg/dL 02/25/21 02/25/21 02/25/21 Range/Units 04:53 04:53 06:00 WBC 10.7 H (3.8-10.6) k/uL RBC 3.30 L (3.80-5.40) m/uL Hgb 8.9 L (11.4-16.0) gm/dL Hct 27.5 L (34.0-46.0) % Neutrophils # 10.2 H (1.3-7.7) k/uL Lymphocytes # 0.3 L (1.0-4.8) k/uL Sodium 136 L (137-145) mmol/L BUN 96 H (7-17) mg/dL Creatinine 2.36 H (0.52-1.04) mg/dL Glucose 283 H (74-99) mg/dL POC Glucose (mg/dL) 273 H (75-99) mg/dL Calcium 8.0 L (8.4-10.2) mg/dL 02/25/21 Range/Units 11:14 WBC (3.8-10.6) k/uL RBC (3.80-5.40) m/uL Hgb (11.4-16.0) gm/dL Hct (34.0-46.0) % Neutrophils # (1.3-7.7) k/uL Lymphocytes # (1.0-4.8) k/uL Sodium (137-145) mmol/L BUN (7-17) mg/dL Creatinine (0.52-1.04) mg/dL Glucose (74-99) mg/dL POC Glucose (mg/dL) 224 H (75-99) mg/dL Calcium (8.4-10.2) mg/dL Microbiology - Last 24 Hours (Table) 02/20/21 09:42 Blood Culture - Preliminary Blood No Growth after 120 hours 02/20/21 09:35 Blood Culture - Preliminary Blood No Growth after 120 hours Assessment and Plan Assessment: Impression: Acute hypoxic respiratory failure secondary to acute pulmonary edema, and fluid overload secondary to acute kidney injury. Also secondary to ARDS. Secondary to sepsis. 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 Type 2 diabetes. Status post puncture wound to the left foot resulting in infection with methicillin sensitive staph aureus. Status post amputation of the left third toe. Chronic anemia. History of puncture wound to the left foot with infection secondary to MSSA. Recommendation: Continue to monitor the patient in the ICU. Titrate FiO2 accordingly. Continue hemodialysis. Continue Lasix drip Continue antibiotics as per infectious disease on the case. Patient is presently on Zosyn, off daptomycin. Continue steroids Solu-Medrol 60 mg IV push every 6 hours. Patient's condition remains critical. Prognosis is extremely guarded. We will continue to follow. Time with Patient: Less than 30
--- NOTE | 2021-02-25 14:45 | P.PN ---
Subjective Progress Note Date: 02/25/21 Principal diagnosis: Headache Patient is a 61-year-old female with a history of diabetes, spinal fractures secondary to accident with history of surgery, and neuropathy who initially presented secondary to concerns for left foot infection. She was found to have staph aureus infection of her left third toe. She was seen by ID and vascular surgery. She was diagnosed with what saenz green of the left third toe and subsequently underwent an ray amputation of the left third toe. Initially she was progressing well. Plan had been for discharge home on oral antibiotics. However on day of discharge she had a significant increase in her creatinine. She also developed a diffuse papular rash with raised red lesion, and developed some shortness of breath. Chest x-ray showed pulmonary edema. There is also concern for possible pulmonary embolism and patient was started on a heparin drip. This was ruled out heparin drip was discontinued. Nephrology was consulted. She was continued on IV fluids. She then had progressive worsening of her shortness of breath and worsening interstitial infiltrate. She was seen by pulmonary who is concern for possible by basilar pneumonia. She had been started on doxycycline, No, and Zosyn with concern for allergic reaction to cefazolin . She was started on steroids. Her for possible pulmonary renal syndrome. The following testing was negative: urine eosinophils which were negative, KRANTHI which was positive, c-ANCA and p-ANCA both negative, anti-GBM negative. 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 She was started on aggressive diuresis secondary to acute fluid overload. Her kidney function improved with steroids. She again had worsening of her shortness of breath on 02/19 requiring replacement on BiPAP as well as initiation of Lasix drip. Patient seen and exemined at bedside with family present. She is feeling SOB and very tired, no nausea, no hungry General: Ill appearing, moderate distress, appears at stated age Derm: warm, dry Head: atraumatic, normocephalic, symmetric Eyes: EOMI, no lid lag, anicteric sclera Mouth: no lip lesion, mucus membranes moist Cardiovascular: S1S2 reg, no murmur, positive posterior tibial pulse bilateral, Lungs: Coarse breath sounds bilateral bilateral, no rhonchi, no rales , + accessory muscle use, on BiPAP Abdominal: soft, nontender to palpation, no guarding, no appreciable organomega ly Ext: no gross muscle atrophy, diffuse anasarca, no contractures Neuro: CN II-XI grossly intact, no focal neuro deficits Psych: Lethargic, oriented Acute renal failure due to 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 -Lasix drip -Oral sodium bicarb Acute hypoxic respiratory failure due to fluid overload, worsening Possible ARDS Vs PNA - add back solumedrol - Pulm Recs -continue with diuresis - ? Need to increase coverage with only dapto, awaiting response from ID Anemia -Patient's hemoglobin was normal on arrival. -I expect this is secondary to recurrent blood draws from prolonged hospital stay -Follow CBC -No signs of bleeding Wet gangrene of the left third toe, staph aureus -Status post ray amputation -Vascular surgery recommendations -Infectious disease recommendations -Daptomycin day #10 Leukocytosis -Suspect reactive to steroids -Continue to monitor closely DM 2, hypoglycemia - levemir and SSI - follow BS - A1C 8.1 Hypertension -Exacerbated by steroids -Continue with Norvasc Vitamin B 6 deficiency - B complex replacement Hyperkalemia Hypocalcemia Metabolic acidosis Severe frontal headache, resolved Severe sepsis without septic shock Active Medications Acetaminophen (Acetaminophen Tab 325 Mg Tab) 650 mg PO Q6HR PRN PRN Reason: Mild Pain or Fever > 100.5 Last Admin: 02/18/21 22:53 Dose: 650 mg Documented by: Acetaminophen/Butalbital/Caffeine (Butalb/Apap/Caff 50-325-40mg Tab) 1 each PO Q4HR PRN PRN Reason: Headache Last Admin: 02/24/21 19:03 Dose: 1 each Documented by: Albuterol Sulfate (Albuterol Nebulized 2.5 Mg/3 Ml) 2.5 mg INHALATION RT-QID PRN PRN Reason: Shortness Of Breath Or Wheezing Last Admin: 02/23/21 19:44 Dose: 2.5 mg Documented by: Alprazolam (Alprazolam 0.5 Mg Tab) 0.5 mg PO Q6H PRN PRN Reason: Anxiety Last Admin: 02/23/21 16:06 Dose: 0.5 mg Documented by: Benzocaine/Menthol (Benzocaine/Menthol Lozeng 1 Each Lozenge) 1 each MUCOUS MEM Q4HR PRN PRN Reason: Sore Throat Last Admin: 02/19/21 22:01 Dose: 1 each Documented by: Benzonatate (Benzonatate 100 Mg Cap) 100 mg PO TID PRN PRN Reason: Cough Last Admin: 02/24/21 21:24 Dose: 100 mg Documented by: Collagenase (Collagenase 250 Unit/Gm Ointment 30 Gm Tube) 1 applic TOPICAL DAILY [facility]; Protocol Last Admin: 02/25/21 08:13 Dose: 1 applic Documented by: Cyanocobalamin (Cyanocobalamin 500 Mcg Tab) 1,000 mcg PO DAILY [facility] Last Admin: 02/25/21 08:13 Dose: 1,000 mcg Documented by: Famotidine (Famotidine 20 Mg Tab) 20 mg PO DAILY [facility] Last Admin: 02/25/21 08:13 Dose: 20 mg Documented by: Folic Acid (Folic Acid 1 Mg Tab) 2 mg PO DAILY [facility] Last Admin: 02/25/21 08:13 Dose: 2 mg Documented by: Heparin Sodium (Porcine) (Heparin Sodium,Porcine/Pf 5,000 Unit/0.5 Ml Syringe) 5,000 unit SQ Q8HR [facility] Last Admin: 02/25/21 08:13 Dose: 5,000 unit Documented by: Hydralazine HCl (Hydralazine Hcl 25 Mg Tab) 25 mg PO TID [facility] Last Admin: 02/25/21 08:13 Dose: Not Given Documented by: Hydrocortisone (Hydrocortisone 1% Cream 454 Gm Jar) 1 applic TOPICAL TID [facility]; Protocol Last Admin: 02/25/21 08:14 Dose: 1 applic Documented by: Furosemide 100 mg/ Sodium (Chloride) 100 mls @ 10 mls/hr IV .Q10H [facility] Last Admin: 02/25/21 06:08 Dose: 10 mg/hr, 10 mls/hr Documented by: Piperacillin Sod/Tazobactam (Sod 3.375 gm/ Sodium Chloride) 100 mls @ 25 mls/hr IVPB Q12H [facility] Last Admin: 02/25/21 04:19 Dose: 25 mls/hr Documented by: Insulin Aspart (Insulin Aspart (Novolog) 100 Unit/Ml Vial) 0 unit SQ ACHS [facility]; Protocol Last Admin: 02/25/21 11:44 Dose: 3 unit Documented by: Insulin Detemir (Insulin Detemir (Levemir) 100 Unit/Ml Syr) 10 unit SQ HS [facility] Insulin Detemir (Insulin Detemir (Levemir) 100 Unit/Ml Syr) 10 unit SQ DAILY@0700 [facility] Methylprednisolone Sodium Succinate (Methylprednisolone Sod Succi 125 Mg/2 Ml Vial) 60 mg IV Q6HR [facility] Last Admin: 02/25/21 11:43 Dose: 60 mg Documented by: Naloxone HCl (Naloxone 0.4 Mg/Ml 1 Ml Vial) 0.2 mg IV Q2M PRN PRN Reason: Opioid Reversal Ondansetron HCl (Ondansetron 4 Mg/2 Ml Vial) 4 mg IVP Q6HR PRN PRN Reason: Nausea And Vomiting Pregabalin (Pregabalin 75 Mg Cap) 75 mg PO BID [facility] Last Admin: 02/25/21 08:13 Dose: 75 mg Documented by: Objective - Vital Signs Vital signs: Vital Signs Temp 97.4 F L 02/25/21 12:36 Pulse 74 02/25/21 14:00 Resp 22 02/25/21 14:00 BP 121/55 02/25/21 14:00 Pulse Ox 95 02/25/21 14:00 Intake & Output 02/24/21 02/25/21 02/25/21 18:59 06:59 18:59 Intake Total 820 645.167 40 Output Total 855 729 3975 Balance 365 165.167 -3175 Weight 102.1 kg 97.5 kg Intake: IV 120 120 40 0.9 120 120 40 Intake, IV Titration 100 185.167 Amount Furosemide 100 mg In 100 185.167 Sodium Chloride 0.9% 90 ml @ 10 MG/HR 10 mls/hr IV .Q10H [facility] Rx#: [id number] Oral 600 340 Output: Urine 455 480 215 Hemodialysis 3000 Other: Voiding Method Indwelling Catheter Indwelling Catheter Indwelling Catheter - Labs CBC & Chem 7: 02/25/21 04:53 02/25/21 04:53 Labs: Abnormal Lab Results - Last 24 Hours (Table) 02/24/21 02/24/21 02/25/21 Range/Units 16:31 21:05 02:13 WBC (3.8-10.6) k/uL RBC (3.80-5.40) m/uL Hgb (11.4-16.0) gm/dL Hct (34.0-46.0) % Neutrophils # (1.3-7.7) k/uL Lymphocytes # (1.0-4.8) k/uL Sodium (137-145) mmol/L BUN (7-17) mg/dL Creatinine (0.52-1.04) mg/dL Glucose (74-99) mg/dL POC Glucose (mg/dL) 170 H 279 H 304 H (75-99) mg/dL Calcium (8.4-10.2) mg/dL 02/25/21 02/25/21 02/25/21 Range/Units 04:53 04:53 06:00 WBC 10.7 H (3.8-10.6) k/uL RBC 3.30 L (3.80-5.40) m/uL Hgb 8.9 L (11.4-16.0) gm/dL Hct 27.5 L (34.0-46.0) % Neutrophils # 10.2 H (1.3-7.7) k/uL Lymphocytes # 0.3 L (1.0-4.8) k/uL Sodium 136 L (137-145) mmol/L BUN 96 H (7-17) mg/dL Creatinine 2.36 H (0.52-1.04) mg/dL Glucose 283 H (74-99) mg/dL POC Glucose (mg/dL) 273 H (75-99) mg/dL Calcium 8.0 L (8.4-10.2) mg/dL 02/25/21 Range/Units 11:14 WBC (3.8-10.6) k/uL RBC (3.80-5.40) m/uL Hgb (11.4-16.0) gm/dL Hct (34.0-46.0) % Neutrophils # (1.3-7.7) k/uL Lymphocytes # (1.0-4.8) k/uL Sodium (137-145) mmol/L BUN (7-17) mg/dL Creatinine (0.52-1.04) mg/dL Glucose (74-99) mg/dL POC Glucose (mg/dL) 224 H (75-99) mg/dL Calcium (8.4-10.2) mg/dL Microbiology - Last 24 Hours (Table) 02/20/21 09:42 Blood Culture - Preliminary Blood No Growth after 120 hours 02/20/21 09:35 Blood Culture - Preliminary Blood No Growth after 120 hours
--- NOTE | 2021-02-25 16:06 | PN ---
PROGRESS NOTE DATE OF SERVICE: 02/25/2021 REASON FOR FOLLOWUP: Possible pneumonia, left foot abscess and cellulitis. INTERVAL HISTORY: Patient is afebrile. The patient is breathing slightly comfortably, still requiring high-flow nasal oxygen off the BiPAP. The patient denies having any chest pain. Did have some cough, not bringing up any sputum. No vomiting. No abdominal pain or diarrhea. PHYSICAL EXAMINATION: Blood pressure is 115/84, pulse of 75, temperature is 97.4. She is 96% on 55% FiO2. General description is a middle-aged female lying in bed in no distress. Respiratory system unlabored breathing, decreased breath sounds at the bases. No wheeze. Heart S1, S2. Regular rate and rhythm. Extremities with 2+ edema of feet. LABS: Hemoglobin is 8.8, white count 10.9, BUN of 96, creatinine is 2.36. DIAGNOSTIC IMPRESSION AND PLAN: Patient with left foot abscess cellulitis secondary to MSSA, status post left third toe amputation subsequent developing renal failure, now with concern for possible pneumonia. Patient white count responded to the Zosyn. Culture has been negative so far. To continue and monitor clinical course closely. Continue supportive care. MMODL / IJN: [id number] /
[2021-02-25 16:49] LABS: Glucose,Whole Blood 277 mg/dL (75-99)
[2021-02-25] MEDS ORDERED: INSULIN DETEMIR (LEVEMIR) 100 UNIT/ML SYR SQ SCH (21:00)
[2021-02-25 21:04] LABS: Glucose,Whole Blood 264 mg/dL (75-99)
[2021-02-25] MEDS: BENZONATATE 100 MG CAP PO PRN (21:05)
[2021-02-26] MEDS: FUROSEMIDE 100 MG in SODIUM CHLORIDE 0.9% 90 ML IV SCH ×2 (00:32→07:50)
[2021-02-26 02:11] LABS: Glucose,Whole Blood 184 mg/dL (75-99)
[2021-02-26 04:21] LABS: Basophils % (A) 0 %; Eosinophils % (A) 0 %; HCT 27.9 % (34.0-46.0); HGB 8.8 gm/dL (11.4-16.0); Lymphocytes # (A) 0.3 k/uL (1.0-4.8); Lymphocytes % (A) 3 %; MCH 26.6 pg (25.0-35.0); MCHC 31.7 g/dL (31.0-37.0); MCV 83.9 fL (80.0-100.0); Mean Platelet Volume 9.2; Monocytes # (A) 0.3 k/uL (0-1.0); Monocytes % (A) 3 %; Neutrophils # (A) 10.7 k/uL (1.3-7.7); Neutrophils % (A) 94 %; Platelet Count 153 k/uL (150-450); RBC 3.33 m/uL (3.80-5.40); WBC 11.4 k/uL (3.8-10.6)
[2021-02-26 04:47] LABS: Albumin 2.5 g/dL (3.5-5.0); Calcium 7.9 mg/dL (8.4-10.2); Magnesium 2.1 mg/dL (1.6-2.3); Total Bilirubin 0.4 mg/dL (0.2-1.3); Total Protein 5.4 g/dL (6.3-8.2)
[2021-02-26] MEDS: PIPERACILLIN-TAZOBACTAM 3.375 GM in SODIUM CHLORIDE 0.9% 100 ML IVPB SCH ×2 (04:57→17:16)
[2021-02-26] MEDS: methylPREDNISolone SOD SUCCI 125 MG/2 ML VIAL IV SCH ×3 (05:00→17:59)
[2021-02-26 06:38] LABS: Glucose,Whole Blood 209 mg/dL (75-99)
[2021-02-26] MEDS: INSULIN ASPART (NovoLOG) 100 UNIT/ML VIAL SQ SCH ×6 (06:38→21:14)
[2021-02-26] MEDS ORDERED: INSULIN DETEMIR (LEVEMIR) 100 UNIT/ML SYR SQ SCH ×2 (07:00→21:00)
[2021-02-26] MEDS: HYDROCORTISONE 1% CREAM 454 GM JAR TOPICAL SCH ×3 (07:35→21:04)
[2021-02-26] MEDS: HEPARIN SODIUM,PORCINE/PF 5,000 UNIT/0.5 ML SYRINGE SQ SCH ×2 (07:43→17:59)
[2021-02-26] MEDS: PREGABALIN 75 MG CAP PO SCH ×2 (07:43→21:03)
[2021-02-26] MEDS: CYANOCOBALAMIN 500 MCG TAB PO SCH (07:43)
[2021-02-26] MEDS: FOLIC ACID 1 MG TAB PO SCH (07:44)
[2021-02-26] MEDS: FAMOTIDINE 20 MG TAB PO SCH (07:44)
[2021-02-26] MEDS: COLLAGENASE 250 UNIT/GM OINTMENT 30 GM TUBE TOPICAL SCH (07:44)
[2021-02-26] MEDS: hydrALAZINE HCL 25 MG TAB PO SCH ×3 (07:44→21:02)
--- NOTE | 2021-02-26 09:25 | XR ---
EXAMINATION TYPE: XR chest 1V portable DATE OF EXAM: 02/26/2021 Comparison: 02/25/2021 Clinical History: 61-year-old female shortness of breath Findings: Severe diffuse bilateral airspace disease obscuring the heart margins. The heart margins are currentl y no longer well seen. Right PICC tip in the right atrium. No appreciable pneumothorax. Impression: Severe diffuse bilateral airspace disease. This appears to have worsened as the heart margins are now no longer visible.
[2021-02-26 11:19] LABS: Glucose,Whole Blood 260 mg/dL (75-99)
--- NOTE | 2021-02-26 13:07 | P.PN ---
Subjective Progress Note Date: 02/26/21 Principal diagnosis: Acute pulmonary edema 61-year-old who presented to the emergency department on January 31, with headache, possible seizure, and also possible infection to the left foot. The patient had apparently not been feeling well for about 3-4 days prior to admission. She had a right-sided occipital headache. In addition, she apparently stepped on a stick in the yard, and developed some redness and drainage from the left foot. In addition, the patient apparently had a low- grade fever. The patient does have a history of diabetes mellitus. She recently moved to [place], from [place]. She has no doctor in this area. Anyway, over the last few days, she's been complaining of shortness of breath. Her oxygen requirements have been going up, and a chest x-ray showed bilateral infiltrates and possibly effusions, as well as a computed tomography scan showing bilateral pleural effusions, and bibasilar infiltrates and atelectasis, left greater than right. For that reason, we were consulted. The patient was on AIRVO at 45 L/m with an FiO2 of 56%. She did not appear to be particularly short of breath. The patient did state that since being on the AIRVO, she has felt better. She does have a cough, which is nonproductive. She denies any chest pain or chest discomfort. She also denies any fever or chills. Her chest x-ray and CAT scan are reviewed. White count 10.5, hemoglobin 9.9, hematocrit 30.8, and platelet count 411,000. Sed rate is 99. Sodium 134, potassium 5.4, chlorides 107, CO2 16, anion gap 11, BUN 88, and creatinine 3.31. Calcium 7.9, phosphorus 7.2. Venous Dopplers of the bilateral lower extremities were negative for DVT. A perfusion lung scan was low probability for PE. A chest x- ray done on the fifth, showed bilateral basilar infiltrates, left greater than right, with more dense consolidation in the left lower lobe. CAT scan of the chest showed bilateral pleural effusions, with extensive bilateral pneumonia and lower lobe atelectasis. COVID testing was negative, and the pro-calcitonin level was a bit elevated at 0.36. The patient is seen today 02/14/2021 in follow-up on the regular medical floor. She is currently sitting up in a chair at the bedside. Awake, alert in no acute distress. She states she is breathing a little bit better today compared to yesterday. She has been converted from the AirVo high flow oxygen back to 8 L high flow nasal cannula. O2 saturations at 95%. She's afebrile. Hemodynami matti stable. Left foot wound cultures positive for MSSA. Follow-up blood cultures revealing no growth. Ultrasound of the chest does reveal a 7.8 cm pocket on the right and a 10.4 cm pocket on the left. Marked for possible thoracentesis. Echocardiogram revealed preserved left ventricular systolic function with ejection fraction 55%. No valvular heart disease. White count 17.4. Hemoglobin 9.4. Sodium 132. Potassium 5.1. Bicarb 20.5. BUN 97. Creatinine 2.9. GFR 17. Glucose 239. Being worked up for possible vasculitis, possible interstitial nephritis. ANCA pending. Possible kidney biopsy today. Remains on D5W with 3 A of bicarb at 50 MLS per hour along with oral bicarb. Antibiotics in the form of Vibramycin, daptomycin, Zosyn. This patient was last seen by us on 02/14/2021, however the patient had so many other issues being addressed by many other consultants, and her main issue was mostly related to her cellulitis, and acute kidney injury. Dr. Corbett has signed off the case on 02/14, and last night I was called about this patient developing worsening shortness of breath, she was evaluated by the rapid response team, and she was clearly in pulmonary edema. Patient was placed on BiPAP, and I recommended immediate transfer to the ICU. I saw this patient today in the ICU, she is on BiPAP, and she is definitely in pulmonary edema. Patient is on IPAP of 10 and EPAP of 5 and FiO2 of 60%, and she is in moderate respiratory distress. She is receiving antibiotics in the form of daptomycin for her cellulitis of the foot, and she received earlier a Lasix dose of 60 mg IV push, and I recommended a Lasix drip at 10 mg per hour. Discussed her condition with her boyfriend at bedside, and made aware that the patient's condition is quite serious, and the patient may end up requiring intubation and mechanical ventilation if she doesn't improve much with Lasix drip. Labs today showed leukocytosis with WBC of 23.2 hemoglobin 9.5. BUN is up to 120 creatinine is 2.16. On 02/23/2021 patient seen in follow-up in the intensive care unit. She remains on BiPAP support with pressures of 12 and 5, and FiO2 of 80%, her O2 saturation is 96%, is afebrile, hemodynamically she is stable, she remains on Lasix infusion every to 10 mg per hour, and 0.9 normal saline at 10 ML per hour, her net fluid balance is negative for 473 mL over the last 24 hours, much less then previous few days. Her weight is down by 1.3 kg in the last 24 hours. She remains on daptomycin for staph infection and cellulitis of the left lower leg and left third toe. No fever or chills overnight, she continues on Solu-Medrol 60 mg every 6 hours for possibility of ARDS. Today's chest x-ray has been reviewed showing moderate diffuse pulmonary edema not significantly changed from the day before. His labs have been reviewed, and with blood cell count has significantly improved and is down to 12.0, hemoglobin is 8.9, electrolytes are within normal limits, renal profile is slightly worse, and creatinine is up to 2.78, and BUN is 130. Patient has had limited oral intake in view of being BiPA P dependent most of the time. Despite that she looks fairly comfortable on BiPAP support, awake and alert, she is answering questions appropriately, denies any chest discomfort, lung sounds are distant with scattered crackles On 02/24/2021, a shunt remains in the ICU, remains very marginal at best. Patient had dialysis done yesterday. Remains on Lasix at 10 mg per hour. Remains on Solu-Medrol 60 mg IV push every 6 hours. Remains on BiPAP with IPAP of 12 and EPAP of 6 FiO2 is 80% today. Patient had 3 L removed with ultrafiltration yesterday. Remains on daptomycin and Zosyn. Clinically the patient is feeling better, but chest x-ray is not showing much of the significant change. I believe the findings on the chest x-ray are mostly related to ARDS secondary to her initial episode of sepsis and cellulitis involving her left foot. WBC count is 13.5 hemoglobin 9.4 lites are normal BUN is 106 creatinine 2.42. Reevaluated today on 02/25/2021, remains in the ICU, patient was on BiPAP last night, however she was transitioned to airvo this morning, she is on 90% FiO2 and 55 L flow. She is undergoing hemodialysis during my evaluation, and the plan is to remove 3 L. Remains on Lasix at 10 mg per hour. Patient is feeling better, chest x-ray showed slight improvement in her noncardiogenic pulmonary edema. Remains on steroids, remains on antibiotics, I believe there is slight improvement noted today WBC count is 10.7 hemoglobin 8.9 electrolytes are normal BUN is down to 96 creatinine is down to 2.36 patient remains on Lasix drip at 10 mg per hour, remains on hemodialysis, but I do not see a significant pulmonary improvement, continues to have an alveolar filling process, almost looks like pulmonary alveolar proteinosis, or ARDS. Considering the patient presented with cellulitis and sepsis, so this is more or less consistent with ARDS. However in the patient does deteriorate and required intubation and mechanical ventilation, may have to consider bronchoscopy and lavage on this patient. Objective - Vital Signs Vital signs: Vital Signs Temp 98.1 F 02/26/21 12:00 Pulse 78 02/26/21 12:00 Resp 25 H 02/26/21 12:00 BP 135/65 02/26/21 12:00 Pulse Ox 94 L 02/26/21 12:00 Intake & Output 02/25/21 02/26/21 02/26/21 18:59 06:59 18:59 Intake Total 218.5 455.5 283 Output Total 3570 740 415 Balance -3351.5 -284.5 -132 Weight 94.6 kg Intake: IV 130 110 60 0.9 130 110 60 Intake, IV Titration 88.5 95.5 73 Amount Furosemide 100 mg In 88.5 95.5 73 Sodium Chloride 0.9% 90 ml @ 10 MG/HR 10 mls/hr IV .Q10H [facility] Rx#: [id number] Oral 250 150 Output: Urine 570 740 415 Hemodialysis 3000 Other: Voiding Method Indwelling Catheter Indwelling Catheter Indwelling Catheter # Bowel Movements 1 - Exam GENERAL EXAM: Revealed a 61-year-old female not in distress,, on aivo, high FiO2 and high flow HEAD: Normocephalic. EYES: Normal reaction of pupils, equal size. NOSE: Clear with pink turbinates. THROAT: No erythema or exudates. NECK: No masses, no JVD. CHEST: No chest wall deformity. LUNGS: Symmetrical chest expansion, records and rhonchi persists. CVS: S1 and S2 normal with no audible murmur, regular rhythm. ABDOMEN: No hepatosplenomegaly, normal bowel sounds, no guarding or rigidity. SKIN: No rashes CENTRAL NERVOUS SYSTEM: No focal deficits, tone is normal in all 4 extremities. EXTREMITIES: Evidence of amputation of the third toe on the left foot noted. Dressing to left foot dry and intact. There is 3+ bipedal edema. - Labs CBC & Chem 7: 02/26/21 03:39 02/26/21 03:39 Labs: Abnormal Lab Results - Last 24 Hours (Table) 02/25/21 02/25/21 02/26/21 Range/Units 16:48 21:03 02:08 WBC (3.8-10.6) k/uL RBC (3.80-5.40) m/uL Hgb (11.4-16.0) gm/dL Hct (34.0-46.0) % Neutrophils # (1.3-7.7) k/uL Lymphocytes # (1.0-4.8) k/uL BUN (7-17) mg/dL Creatinine (0.52-1.04) mg/dL Glucose (74-99) mg/dL POC Glucose (mg/dL) 277 H 264 H 184 H (75-99) mg/dL Calcium (8.4-10.2) mg/dL Total Protein (6.3-8.2) g/dL Albumin (3.5-5.0) g/dL 02/26/21 02/26/21 02/26/21 Range/Units 03:39 03:39 06:37 WBC 11.4 H (3.8-10.6) k/uL RBC 3.33 L (3.80-5.40) m/uL Hgb 8.8 L (11.4-16.0) gm/dL Hct 27.9 L (34.0-46.0) % Neutrophils # 10.7 H (1.3-7.7) k/uL Lymphocytes # 0.3 L (1.0-4.8) k/uL BUN 78 H (7-17) mg/dL Creatinine 2.20 H (0.52-1.04) mg/dL Glucose 181 H (74-99) mg/dL POC Glucose (mg/dL) 209 H (75-99) mg/dL Calcium 7.9 L (8.4-10.2) mg/dL Total Protein 5.4 L (6.3-8.2) g/dL Albumin 2.5 L (3.5-5.0) g/dL 02/26/21 Range/Units 11:17 WBC (3.8-10.6) k/uL RBC (3.80-5.40) m/uL Hgb (11.4-16.0) gm/dL Hct (34.0-46.0) % Neutrophils # (1.3-7.7) k/uL Lymphocytes # (1.0-4.8) k/uL BUN (7-17) mg/dL Creatinine (0.52-1.04) mg/dL Glucose (74-99) mg/dL POC Glucose (mg/dL) 260 H (75-99) mg/dL Calcium (8.4-10.2) mg/dL Total Protein (6.3-8.2) g/dL Albumin (3.5-5.0) g/dL Microbiology - Last 24 Hours (Table) 02/20/21 09:35 Blood Culture - Final Blood No Growth after 144 hours 02/20/21 09:42 Blood Culture - Final Blood No Growth after 144 hours Assessment and Plan Assessment: Impression: Acute hypoxic respiratory failure secondary to acute pulmonary edema, and fluid overload secondary to acute kidney injury. Also secondary to ARDS. Secondary to sepsis. 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 Type 2 diabetes. Status post puncture wound to the left foot resulting in infection with methicillin sensitive staph aureus. Status post amputation of the left third toe. Chronic anemia. History of puncture wound to the left foot with infection secondary to MSSA. Recommendation: Continue to monitor the patient in the ICU. Titrate FiO2 accordingly. Continue hemodialysis. Continue Lasix drip Continue antibiotics as per infectious disease on the case. Patient is presently on Zosyn, off daptomycin. Continue steroids Solu-Medrol 60 mg IV push every 6 hours. Condition remains critical. We will continue to follow. Time with Patient: Less than 30
--- NOTE | 2021-02-26 16:06 | P.PN ---
Subjective Progress Note Date: 02/26/21 Principal diagnosis: Headache Patient is a 61-year-old female with a history of diabetes, spinal fractures secondary to accident with history of surgery, and neuropathy who initially presented secondary to concerns for left foot infection. She was found to have staph aureus infection of her left third toe. She was seen by ID and vascular surgery. She was diagnosed with what saenz green of the left third toe and subsequently underwent an ray amputation of the left third toe. Initially she was progressing well. Plan had been for discharge home on oral a ntibiotics. However on day of discharge she had a significant increase in her creatinine. She also developed a diffuse papular rash with raised red lesion, and developed some shortness of breath. Chest x-ray showed pulmonary edema. There is also concern for possible pulmonary embolism and patient was started on a heparin drip. This was ruled out heparin drip was discontinued. Nephrology was consulted. She was continued on IV fluids. She then had progressive worsening of her shortness of breath and worsening interstitial infiltrate. She was seen by pulmonary who is concern for possible by basilar pneumonia. She had been started on doxycycline, No, and Zosyn with concern for allergic reaction to cefazolin . She was started on steroids. Her for possible pulmonary renal syndrome. The following testing was negative: urine eosinophils which were negative, KRANTHI which was positive, c-ANCA and p-ANCA both negative, anti-GBM negative. 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 She was started on aggressive diuresis secondary to acute fluid overload. Her kidney function improved with steroids. She again had worsening of her shortness of breath on 02/19 requiring replacement on BiPAP as well as initiation of Lasix drip. She was also transitioned from daptomycin to Zosyn for increased pulmonary coverage for possible underlying pneumonia. She started undergoing hemodialysis on 02/23. Patient seen and examined at bedside. Denies any nausea or vomiting. Did eat a small amount of breakfast. Feeling less short of breath than yesterday but still feeling very tired and worn out. General: Ill appearing, mild distress, appears at stated age Derm: warm, dry Head: atraumatic, normocephalic, symmetric Eyes: EOMI, no lid lag, anicteric sclera Mouth: no lip lesion, mucus membranes moist Cardiovascular: S1S2 reg, no murmur, positive posterior tibial pulse bilateral, Lungs: Coarse breath sounds bilateral bilateral, no rhonchi, no rales , no accessory muscle use, on airVo Abdominal: soft, nontender to palpation, no guarding, no appreciable organomegaly Ext: no gross muscle atrophy, diffuse anasarca, no contractures Neuro: CN II-XI grossly intact, no focal neuro deficits Psych: Lethargic, oriented Acute renal failure due to 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 (post infectious GN with ATN) Metabolic acidosis -Nephrology recommendations: Day #3 of ultrafiltration -Lasix drip Acute hypoxic respiratory failure due to fluid overload, worsening Possible ARDS Vs PNA -Continue with Solu-Medrol -Daptomycin was transitioned to Zosyn for lung penetration after discussion with ID - Pulm Recs -continue with diuresis Anemia -Patient's hemoglobin was normal on arrival. -I expect this is secondary to recurrent blood draws from prolonged hospital stay -Follow CBC -No signs of bleeding Wet gangrene of the left third toe, staph aureus -Status post ray amputation -Vascular surgery recommendations -Infectious disease recommendations -Daptomycin day #10 was completed and patient was transitioned to Zosyn D # 4 DM 2, hypoglycemia and hyperglycemia related to steroid use - levemir increased and SSI - follow BS - A1C 8.1 Hypertension -Exacerbated by steroids -Continue with Norvasc Vitamin B 6 deficiency - B complex replacement Hyperkalemia Hypocalcemia Metabolic acidosis Severe frontal headache, resolved Severe sepsis without septic shock Objective - Vital Signs Vital signs: Vital Signs Temp 98.0 F 02/26/21 15:28 Pulse 73 02/26/21 15:28 Resp 26 H 02/26/21 15:28 BP 126/70 02/26/21 15:28 Pulse Ox 93 L 02/26/21 14:00 Intake & Output 02/25/21 02/26/21 02/26/21 18:59 06:59 18:59 Intake Total 218.5 455.5 313 Output Total 3570 740 3125 Balance -3351.5 -284.5 -2812 Weight 94.6 kg Intake: IV 130 110 90 0.9 130 110 90 Intake, IV Titration 88.5 95.5 73 Amount Furosemide 100 mg In 88.5 95.5 73 Sodium Chloride 0.9% 90 ml @ 10 MG/HR 10 mls/hr IV .Q10H [facility] Rx#: [id number] Oral 250 150 Output: Urine 570 740 625 Hemodialysis 3000 2500 Other: Voiding Method Indwelling Catheter Indwelling Catheter Indwelling Catheter # Bowel Movements 1 - Labs CBC & Chem 7: 02/26/21 03:39 02/26/21 03:39 Labs: Abnormal Lab Results - Last 24 Hours (Table) 02/25/21 02/25/21 02/26/21 Range/Units 16:48 21:03 02:08 WBC (3.8-10.6) k/uL RBC (3.80-5.40) m/uL Hgb (11.4-16.0) gm/dL Hct (34.0-46.0) % Neutrophils # (1.3-7.7) k/uL Lymphocytes # (1.0-4.8) k/uL BUN (7-17) mg/dL Creatinine (0.52-1.04) mg/dL Glucose (74-99) mg/dL POC Glucose (mg/dL) 277 H 264 H 184 H (75-99) mg/dL Calcium (8.4-10.2) mg/dL Total Protein (6.3-8.2) g/dL Albumin (3.5-5.0) g/dL 02/26/21 02/26/21 02/26/21 Range/Units 03:39 03:39 06:37 WBC 11.4 H (3.8-10.6) k/uL RBC 3.33 L (3.80-5.40) m/uL Hgb 8.8 L (11.4-16.0) gm/dL Hct 27.9 L (34.0-46.0) % Neutrophils # 10.7 H (1.3-7.7) k/uL Lymphocytes # 0.3 L (1.0-4.8) k/uL BUN 78 H (7-17) mg/dL Creatinine 2.20 H (0.52-1.04) mg/dL Glucose 181 H (74-99) mg/dL POC Glucose (mg/dL) 209 H (75-99) mg/dL Calcium 7.9 L (8.4-10.2) mg/dL Total Protein 5.4 L (6.3-8.2) g/dL Albumin 2.5 L (3.5-5.0) g/dL 02/26/21 Range/Units 11:17 WBC (3.8-10.6) k/uL RBC (3.80-5.40) m/uL Hgb (11.4-16.0) gm/dL Hct (34.0-46.0) % Neutrophils # (1.3-7.7) k/uL Lymphocytes # (1.0-4.8) k/uL BUN (7-17) mg/dL Creatinine (0.52-1.04) mg/dL Glucose (74-99) mg/dL POC Glucose (mg/dL) 260 H (75-99) mg/dL Calcium (8.4-10.2) mg/dL Total Protein (6.3-8.2) g/dL Albumin (3.5-5.0) g/dL Microbiology - Last 24 Hours (Table) 02/20/21 09:35 Blood Culture - Final Blood No Growth after 144 hours 02/20/21 09:42 Blood Culture - Final Blood No Growth after 144 hours
[2021-02-26 16:36] LABS: Glucose,Whole Blood 209 mg/dL (75-99)
--- NOTE | 2021-02-26 18:10 | PN ---
PROGRESS NOTE Patient is seen for followup for acute kidney injury secondary to postinfectious GN status post kidney biopsy, currently maintained on daily ultrafiltration for volume overload. The patient is also maintained on Lasix drip. Serum creatinine has been staying around 2 mg/dL. We had about 3 L of ultrafiltration yesterday. Overall, patient's condition remains about the same. Her off oxygen requirements are roughly about the same. PHYSICAL EXAMINATION: On examination today, blood pressure was 139/72, heart rate of 80 per minute, patient is afebrile. Examination of the heart S1, S2. Examination of the lungs, bilateral breath sounds are heard. Decreased breath sounds at the bases. Basal crackles are heard. Abdomen is soft, obese. Exam of lower extremities shows edema 2+ bilaterally. HEAD MILLER exam grossly intact. LAB: Show sodium 137, potassium 4.0, chloride 103, BUN 78, creatinine 2.2. Hemoglobin 8.8 g/dL. ASSESSMENT: 1. Acute kidney injury secondary to postinfectious glomerulonephritis status post kidney biopsy, maintained on antibiotics, currently maintained on daily ultrafiltration secondary to volume overload. The patient is not being dialyzed but has had only ultrafiltration done. 2. Severe volume overload, maintained on Lasix drip and daily ultrafiltration. Overall volume status somewhat improved. The patient remains significantly volume overloaded. We will continue with daily treatments for now. 3. Anemia multifactorial. 4. Left foot cellulitis with cultures positive for Staphylococcus aureus status post amputation of left third toe. 5. Acute hypoxic respiratory failure secondary to volume overload/possible ARDS, maintained on steroids, receiving daily ultrafiltration and maintained on Lasix drip as well. PLAN: Continue with Lasix drip. Will repeat ultrafiltration in a.m., will try for 3-4 L. Avoid significant fluctuations in blood pressure due to acute kidney injury. Patient continues to have decent urine output. MMODL / IJN: [id number] /
[2021-02-26 18:17] LABS: Hepatitis B Surface AB- Quant <3.5 mIU/mL; Hepatitis B Surface Antibody Non-Reactive (Non-Reactive)
[2021-02-26] MEDS: ACETAMINOPHEN TAB 325 MG TAB PO PRN (21:02)
[2021-02-26 21:09] LABS: Glucose,Whole Blood 297 mg/dL (75-99)
--- NOTE | 2021-02-26 22:44 | PN ---
PROGRESS NOTE DATE OF SERVICE: 02/26/2021. REASON FOR FOLLOW-UP: Pneumonia, cellulitis. INTERVAL HISTORY: The patient is afebrile. She is breathing slightly comfortably. Still requiring high- flow oxygen. The patient denies any chest pain or worsening cough. No vomiting. No abdominal pain. No diarrhea. PHYSICAL EXAMINATION: Blood pressure 131/65, pulse of 75, temperature 98. She is 91% on 90% FiO2. General description is a middle-aged female lying in bed in no distress. Respiratory system: Unlabored breathing, decreased breath sounds at bases. No wheeze. Heart S1, S2. Regular rate and rhythm. Abdomen soft, no tenderness. LABS: Hemoglobin is 8.8, white count 11.4, BUN of 78, creatinine is 2.20. DIAGNOSTIC IMPRESSION AND PLAN: Patient with left foot cellulitis, left third toe gangrene status post amputation with development of the renal failure currently being managed with dialysis and a question of pneumonia. Patient is currently covered with Zosyn that will be continued for now. Try to obtain a sputum and narrow down antibiotics. MMODL / IJN: [id number] /
[2021-02-27] MEDS: HEPARIN SODIUM,PORCINE/PF 5,000 UNIT/0.5 ML SYRINGE SQ SCH ×3 (01:29→18:08)
[2021-02-27] MEDS: methylPREDNISolone SOD SUCCI 125 MG/2 ML VIAL IV SCH ×4 (01:29→18:14)
[2021-02-27 01:33] LABS: Glucose,Whole Blood 216 mg/dL (75-99)
[2021-02-27] MEDS: FUROSEMIDE 100 MG in SODIUM CHLORIDE 0.9% 90 ML IV SCH ×3 (02:20→21:30)
[2021-02-27] MEDS: PIPERACILLIN-TAZOBACTAM 3.375 GM in SODIUM CHLORIDE 0.9% 100 ML IVPB SCH ×2 (03:16→18:08)
[2021-02-27 04:46] LABS: Basophils % (A) 0 %; Eosinophils % (A) 0 %; HCT 26.5 % (34.0-46.0); HGB 9.5 gm/dL (11.4-16.0); Lymphocytes # (A) 0.3 k/uL (1.0-4.8); Lymphocytes % (A) 2 %; MCH 28.9 pg (25.0-35.0); MCHC 36.1 g/dL (31.0-37.0); Mean Platelet Volume 10.2; Monocytes # (A) 0.3 k/uL (0-1.0); Monocytes % (A) 2 %; Neutrophils # (A) 14.1 k/uL (1.3-7.7); Neutrophils % (A) 95 %; Platelet Count 152 k/uL (150-450); RBC 3.31 m/uL (3.80-5.40); WBC 14.8 k/uL (3.8-10.6)
[2021-02-27 05:29] LABS: Albumin 2.5 g/dL (3.5-5.0); Calcium 8.1 mg/dL (8.4-10.2); Potassium 4.1 mmol/L (3.5-5.1); Total Bilirubin 0.5 mg/dL (0.2-1.3); Total Protein 5.4 g/dL (6.3-8.2)
[2021-02-27 06:50] LABS: Glucose,Whole Blood 201 mg/dL (75-99)
[2021-02-27] MEDS: INSULIN ASPART (NovoLOG) 100 UNIT/ML VIAL SQ SCH ×7 (06:54→21:35)
[2021-02-27] MEDS ORDERED: INSULIN DETEMIR (LEVEMIR) 100 UNIT/ML SYR SQ SCH (07:00)
--- NOTE | 2021-02-27 08:34 | XR ---
EXAMINATION TYPE: XR chest 1V portable DATE OF EXAM: 02/27/2021 COMPARISON: Chest x-ray 02/26/2021 HISTORY: Shortness of breath TECHNIQUE: Single frontal view of the chest is obtained. FINDINGS: Diffuse bilateral airspace disease persists. Right-sided PICC line is in place, distal tip is in the right atrium. No evident pneumothorax or pleural effusion. Cardiac mediastinal silhouette is stable. IMPRESSION: Correlate for pneumonia, pulmonary edema or hemorrhage
[2021-02-27] MEDS: hydrALAZINE HCL 25 MG TAB PO SCH ×3 (08:44→21:29)
[2021-02-27] MEDS: PREGABALIN 75 MG CAP PO SCH ×2 (08:44→21:29)
[2021-02-27] MEDS: FAMOTIDINE 20 MG TAB PO SCH (08:44)
[2021-02-27] MEDS: FOLIC ACID 1 MG TAB PO SCH (08:44)
[2021-02-27] MEDS: CYANOCOBALAMIN 500 MCG TAB PO SCH (08:44)
[2021-02-27] MEDS: HYDROCORTISONE 1% CREAM 454 GM JAR TOPICAL SCH ×3 (08:45→23:42)
[2021-02-27] MEDS: COLLAGENASE 250 UNIT/GM OINTMENT 30 GM TUBE TOPICAL SCH (08:45)
--- NOTE | 2021-02-27 09:08 | P.PN ---
Subjective Progress Note Date: 02/27/21 Principal diagnosis: Headache Patient is a 61-year-old female with a history of diabetes, spinal fractures secondary to accident with history of surgery, and neuropathy who initially presented secondary to concerns for left foot infection. She was found to have staph aureus infection of her left third toe. She was seen by ID and vascular surgery. She was diagnosed with what saenz green of the left third toe and subsequently underwent an ray amputation of the left third toe. Initially she was progressing well. Plan had been for discharge home on oral a ntibiotics. However on day of discharge she had a significant increase in her creatinine. She also developed a diffuse papular rash with raised red lesion, and developed some shortness of breath. Chest x-ray showed pulmonary edema. There is also concern for possible pulmonary embolism and patient was started on a heparin drip. This was ruled out heparin drip was discontinued. Nephrology was consulted. She was continued on IV fluids. She then had progressive worsening of her shortness of breath and worsening interstitial infiltrate. She was seen by pulmonary who is concern for possible by basilar pneumonia. She had been started on doxycycline, No, and Zosyn with concern for allergic reaction to cefazolin . She was started on steroids. Her for possible pulmonary renal syndrome. The following testing was negative: urine eosinophils which were negative, KRANTHI which was positive, c-ANCA and p-ANCA both negative, anti-GBM negative. 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 She was started on aggressive diuresis secondary to acute fluid overload. Her kidney function improved with steroids. She again had worsening of her shortness of breath on 02/19 requiring replacement on BiPAP as well as initiation of Lasix drip. She was also transitioned from daptomycin to Zosyn for increased pulmonary coverage for possible underlying pneumonia. She started undergoing daily ultrafiltrate on 02/23. Patient seen and examined at bedside. Reports that she is breathing somewhat better, ate a little this morning, feeling very tired and anxious to get out of the hospital. General: Ill appearing, no distress, appears at stated age Derm: warm, dry Head: atraumatic, normocephalic, symmetric Eyes: EOMI, no lid lag, anicteric sclera Mouth: no lip lesion, mucus membranes moist Cardiovascular: S1S2 reg, no murmur, positive posterior tibial pulse bilateral, Lungs: Decreased bs bilateral, no rhonchi, no rales , no accessory muscle use, on airVo Abdominal: soft, nontender to palpation, no guarding, no appreciable organomegaly Ext: no gross muscle atrophy, diffuse anasarca, no contractures Neuro: CN II-XI grossly intact, no focal neuro deficits Psych: Awake, oriented, appropraite affect. 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 -I expect this is secondary to recurrent blood draws from prolonged hospital stay -Follow CBC -No signs of bleeding Wet gangrene of the left third toe, staph aureus -Status post ray amputation -Vascular surgery recommendations -Infectious disease recommendations -Daptomycin day #10 was completed and patient was transitioned to Zosyn D # 5 DM 2, hypoglycemia and hyperglycemia related to steroid use - levemir increased, fixed dose increased and SSI - follow BS - A1C 8.1 Hypertension, controlled -Continue with Norvasc - follow BP Vitamin B 6 deficiency - B complex replacement Hyperkalemia Hypocalcemia Metabolic acidosis Severe frontal headache, resolved Severe sepsis without septic shock Objective - Vital Signs Vital signs: Vital Signs Temp 97.5 F L 02/27/21 08:00 Pulse 74 02/27/21 08:00 Resp 12 02/27/21 08:00 BP 126/75 02/27/21 08:00 Pulse Ox 94 L 02/27/21 08:00 Intake & Output 02/26/21 02/27/21 02/27/21 18:59 06:59 18:59 Intake Total 443 650 10 Output Total 3350 1158 140 Balance -2907 -508 -130 Weight 95.2 kg Intake: IV 120 350 10 0.9 120 130 10 Furosemide 100 mg In 120 Sodium Chloride 0.9% 90 ml @ 10 MG/HR 10 mls/hr IV .Q10H [facility] Rx#: [id number] Piperacillin-Tazobactam 3 100 .375 gm In Sodium Chloride 0.9% 100 ml @ 25 mls/hr IVPB Q12H [facility] Rx# :[id number] Intake, IV Titration 173 Amount Furosemide 100 mg In 173 Sodium Chloride 0.9% 90 ml @ 10 MG/HR 10 mls/hr IV .Q10H [facility] Rx#: [id number] Oral 150 300 Output: Urine 850 1158 140 Hemodialysis 2500 Other: Voiding Method Indwelling Catheter Indwelling Catheter Indwelling Catheter # Bowel Movements 1 1 - Labs CBC & Chem 7: 02/27/21 04:31 02/27/21 04:31 Labs: Abnormal Lab Results - Last 24 Hours (Table) 02/26/21 02/26/21 02/26/21 Range/Units 11:17 16:34 21:07 WBC (3.8-10.6) k/uL RBC (3.80-5.40) m/uL Hgb (11.4-16.0) gm/dL Hct (34.0-46.0) % Neutrophils # (1.3-7.7) k/uL Lymphocytes # (1.0-4.8) k/uL Sodium (137-145) mmol/L BUN (7-17) mg/dL Creatinine (0.52-1.04) mg/dL Glucose (74-99) mg/dL POC Glucose (mg/dL) 260 H 209 H 297 H (75-99) mg/dL Calcium (8.4-10.2) mg/dL Total Protein (6.3-8.2) g/dL Albumin (3.5-5.0) g/dL 02/27/21 02/27/21 02/27/21 Range/Units 01:32 04:31 04:31 WBC 14.8 H (3.8-10.6) k/uL RBC 3.31 L (3.80-5.40) m/uL Hgb 9.5 L (11.4-16.0) gm/dL Hct 26.5 L (34.0-46.0) % Neutrophils # 14.1 H (1.3-7.7) k/uL Lymphocytes # 0.3 L (1.0-4.8) k/uL Sodium 136 L (137-145) mmol/L BUN 82 H (7-17) mg/dL Creatinine 2.18 H (0.52-1.04) mg/dL Glucose 197 H (74-99) mg/dL POC Glucose (mg/dL) 216 H (75-99) mg/dL Calcium 8.1 L (8.4-10.2) mg/dL Total Protein 5.4 L (6.3-8.2) g/dL Albumin 2.5 L (3.5-5.0) g/dL 02/27/21 Range/Units 06:48 WBC (3.8-10.6) k/uL RBC (3.80-5.40) m/uL Hgb (11.4-16.0) gm/dL Hct (34.0-46.0) % Neutrophils # (1.3-7.7) k/uL Lymphocytes # (1.0-4.8) k/uL Sodium (137-145) mmol/L BUN (7-17) mg/dL Creatinine (0.52-1.04) mg/dL Glucose (74-99) mg/dL POC Glucose (mg/dL) 201 H (75-99) mg/dL Calcium (8.4-10.2) mg/dL Total Protein (6.3-8.2) g/dL Albumin (3.5-5.0) g/dL Microbiology - Last 24 Hours (Table) 02/20/21 09:35 Blood Culture - Final Blood No Growth after 144 hours 02/20/21 09:42 Blood Culture - Final Blood No Growth after 144 hours
--- NOTE | 2021-02-27 10:23 | P.PN ---
Subjective Progress Note Date: 02/27/21 Principal diagnosis: On 02/15/2021 patient seen in follow-up on medical surgical floor. She is awake, in no acute distress. She is currently on 4 L of oxygen, her pulse ox is 95%, afebrile. Continues on doxycycline and Zosyn. Cultures have shown no growth thus far, wound from the third left toe was positive for MSSA. Patient remains on oral prednisone for possibility of acute interstitial nephritis. The kidney biopsy was performed today. Patient is nonoliguric. Overall her fluid volume overload improved with diuretics. She is breathing comfortably, she is not producing any phlegm. Denies any chest discomfort. Patient continues on Norvasc, and she has required calcium channel blockers for blood pressure control in addition to hydralazine. The blood pressure is improved. IV steroids have been transitioned to oral prednisone. On 02/23/2001 patient seen in follow-up in the intensive care unit. She remains on BiPAP support with pressures of 12 and 5, and FiO2 of 80%, her O2 saturation is 96%, is afebrile, hemodynamically she is stable, she remains on Lasix infusion every to 10 mg per hour, and 0.9 normal saline at 10 ML per hour, her net fluid balance is negative for 473 mL over the last 24 hours, much less then previous few days. Her weight is down by 1.3 kg in the last 24 hours. She remains on daptomycin for staph infection and cellulitis of the left lower leg and left third toe. No fever or chills overnight, she continues on Solu-Medrol 60 mg every 6 hours for possibility of ARDS. Today's chest x-ray has been reviewed showing moderate diffuse pulmonary edema not significantly changed from the day before. His labs have been reviewed, and with blood cell count has significantly improved and is down to 12.0, hemoglobin is 8.9, electrolytes are within normal limits, renal profile is slightly worse, and creatinine is up to 2.78, and BUN is 130. Patient has had limited oral intake in view of being BiPAP dependent most of the time. Despite that she looks fairly comfortable on BiPAP support, awake and alert, she is answering questions appropriately, denies any chest discomfort, lung sounds are distant with scattered crackles On 02/27/2021 patient seen in follow-up in intensive care unit. She is currently on Airvo at 50l and FiO2 of 90%, she's been wearing BiPAP support at bedtime at a pressure of 12/5 and FiO2 of 75%. She is breathing much more comfortably, she is relying on BiPAP support a lot less. She remains on hemod ialysis, she has been dialyzed every day since 02/23/2021. Yesterday she had 2.5 L of fluid taken off with hemodialysis, she also remains on Lasix infusion at 10 mg per hour, her urine output is 102 200 ML per hour. Total net fluid balance is -3.4 L over the last 24 hours. She is also receiving maintenance fluids with 0.9 normal saline at a rate of 10 ML per hour, she is on IV Solu- Medrol 60 mg every 6 hours. Current antibiotic coverage is with Zosyn. Cultures have been negative. No fever or chills, hemodynamically she is stable, she is in sinus mechanism with a rate of 72 BPM. Today's chest x-ray shows diffuse bilateral airspace disease, without significant change from yesterday. Generalized edema has improved. Mentation is awake, oriented 3. No complaints of worsening shortness of breath, cough, phlegm production or chest discomfort. Patient is receiving local wound care to the post amputation site on the third digit of the left foot. ID service and vascular surgery are following Objective - Vital Signs Vital signs: Vital Signs Temp 97.5 F L 02/27/21 08:00 Pulse 74 02/27/21 08:00 Resp 12 02/27/21 08:00 BP 126/75 02/27/21 08:00 Pulse Ox 94 L 02/27/21 08:00 Intake & Output 02/26/21 02/27/21 02/27/21 18:59 06:59 18:59 Intake Total 443 650 10 Output Total 3350 1158 140 Balance -2907 -508 -130 Weight 95.2 kg Intake: IV 120 350 10 0.9 120 130 10 Furosemide 100 mg In 120 Sodium Chloride 0.9% 90 ml @ 10 MG/HR 10 mls/hr IV .Q10H [facility] Rx#: [id number] Piperacillin-Tazobactam 3 100 .375 gm In Sodium Chloride 0.9% 100 ml @ 25 mls/hr IVPB Q12H [facility] Rx# :[id number] Intake, IV Titration 173 Amount Furosemide 100 mg In 173 Sodium Chloride 0.9% 90 ml @ 10 MG/HR 10 mls/hr IV .Q10H [facility] Rx#: [id number] Oral 150 300 Output: Urine 850 1158 140 Hemodialysis 2500 Other: Voiding Method Indwelling Catheter Indwelling Catheter Indwelling Catheter # Bowel Movements 1 1 - Exam GENERAL EXAM: Alert, very pleasant, 61-year-old female, on Airvo at 50 L and FiO2 of 90% and the pulse ox of 94% comfortable in no apparent distress. HEAD: Normocephalic/atraumatic. EYES: Normal reaction of pupils, equal size. Conjunctiva pink, sclera white. NOSE: Clear with pink turbinates. THROAT: No erythema or exudates. NECK: No masses, no JVD, no thyroid enlargement, no adenopathy. CHEST: No chest wall deformity. Symmetrical expansion. LUNGS: Equal air entry with dim breath sounds and diffuse crackles CVS: Regular rate and rhythm, normal S1 and S2, no gallops, no murmurs, no rubs ABDOMEN: Soft, nontender. No hepatosplenomegaly, normal bowel sounds, no guarding or rigidity. EXTREMITIES: No clubbing, mild pretibial edema, no cyanosis, 2+ pulses and upper and lower extremities. MUSCULOSKELETAL: Muscle strength and tone normal. SPINE: No scoliosis or deformity SKIN: No rashes, cellulitis in the left foot, left third toe amputation site is covered with a dressing CENTRAL NERVOUS SYSTEM: Alert and oriented -3. No focal deficits, tone is normal in all 4 extremities. PSYCHIATRIC: Alert and oriented -3. Appropriate affect. Intact judgment and insight. - Labs CBC & Chem 7: 02/27/21 04:31 02/27/21 04:31 Labs: Abnormal Lab Results - Last 24 Hours (Table) 02/26/21 02/26/21 02/26/21 Range/Units 11:17 16:34 21:07 WBC (3.8-10.6) k/uL RBC (3.80-5.40) m/uL Hgb (11.4-16.0) gm/dL Hct (34.0-46.0) % Neutrophils # (1.3-7.7) k/uL Lymphocytes # (1.0-4.8) k/uL Sodium (137-145) mmol/L BUN (7-17) mg/dL Creatinine (0.52-1.04) mg/dL Glucose (74-99) mg/dL POC Glucose (mg/dL) 260 H 209 H 297 H (75-99) mg/dL Calcium (8.4-10.2) mg/dL Total Protein (6.3-8.2) g/dL Albumin (3.5-5.0) g/dL 02/27/21 02/27/21 02/27/21 Range/Units 01:32 04:31 04:31 WBC 14.8 H (3.8-10.6) k/uL RBC 3.31 L (3.80-5.40) m/uL Hgb 9.5 L (11.4-16.0) gm/dL Hct 26.5 L (34.0-46.0) % Neutrophils # 14.1 H (1.3-7.7) k/uL Lymphocytes # 0.3 L (1.0-4.8) k/uL Sodium 136 L (137-145) mmol/L BUN 82 H (7-17) mg/dL Creatinine 2.18 H (0.52-1.04) mg/dL Glucose 197 H (74-99) mg/dL POC Glucose (mg/dL) 216 H (75-99) mg/dL Calcium 8.1 L (8.4-10.2) mg/dL Total Protein 5.4 L (6.3-8.2) g/dL Albumin 2.5 L (3.5-5.0) g/dL 02/27/21 Range/Units 06:48 WBC (3.8-10.6) k/uL RBC (3.80-5.40) m/uL Hgb (11.4-16.0) gm/dL Hct (34.0-46.0) % Neutrophils # (1.3-7.7) k/uL Lymphocytes # (1.0-4.8) k/uL Sodium (137-145) mmol/L BUN (7-17) mg/dL Creatinine (0.52-1.04) mg/dL Glucose (74-99) mg/dL POC Glucose (mg/dL) 201 H (75-99) mg/dL Calcium (8.4-10.2) mg/dL Total Protein (6.3-8.2) g/dL Albumin (3.5-5.0) g/dL Microbiology - Last 24 Hours (Table) 02/20/21 09:35 Blood Culture - Final Blood No Growth after 144 hours 02/20/21 09:42 Blood Culture - Final Blood No Growth after 144 hours Assessment and Plan Plan: Assessment: #1. Acute hypoxic respiratory failure, multifactorial, related to acute pulmonary edema, and component of ARDS secondary to MSSA infection, cellulitis, and exudative glomerulonephropathy nephritis, currently on Airvo at 50 L/min, Fio2 90%, on BiPAP support, with pressures of 12 and 5 and FiO2 of 75% at bedtime and as needed. Possibility of pneumonia is a consideration although seems to be less likely. Patient continues on Lasix infusion, and she has been started on hemodialysis on 02/23/2021, remains on high-dose IV steroids 60 mg every 6 hours #2. Status post puncture wound to the left foot, which has become infected with methicillin sensitive staph aureus, was treated with daptomycin, currently on Zosyn status post amputation of the left third toe. #3. Acute sepsis secondary to staph aureus infection of the left foot #4. History of diabetes mellitus. #5. Non-anion gap metabolic acidosis, secondary to renal failure, improved with hemodialysis #6. Acute kidney injury related to MSSA infection, exudative glomerulonephropathy, started on hemodialysis on 02/23/2021 #7. Mild hyperkalemia, resolved #8. Anemia. Plan: Continue BiPAP support at previous settings as needed and at bedtime Continue Airvo, which the patient is tolerating for longer periods of time Chest x-ray continues to show pulmonary edema, not significantly different from yesterday Continues on Lasix, hemodialysis again today Continue high-dose IV steroids Continue antibiotics Continue weaning FiO2 to keep O2 sats at 90 or 92% We'll continue close monitoring in the intensive care unit Follow-up chest x-ray and labs in the morning I performed a history & physical examination of the patient and discussed their management with my nurse practitioner, Stefania Quiñonez. I reviewed the nurse practitioner's note and agree with the documented findings and plan of care. Lung sounds are positive for diminished breath sounds throughout the lung hair. The findings and the impression was discussed with the patient. I attest to the documentation by the nurse practitioner. Time with Patient: Greater than 30
[2021-02-27 11:41] LABS: Glucose,Whole Blood 146 mg/dL (75-99)
--- NOTE | 2021-02-27 13:49 | PN ---
PROGRESS NOTE Patient is seen for followup for acute kidney injury secondary to biopsy-proven acute postinfectious GN and fluid overload. She is maintained on daily ultrafiltration treatments for severe volume overload. Patient is also maintained on Lasix drip. She has had about 2 L of urine output for 24 hours and total output including with dialysis was about 4.5 L yesterday. We had 2.5 L of ultrafiltration with hemodialysis. Overall, patient's volume status is improved. She is breathing easier. Oxygen requirements are slightly lower, down to 75% from 100%. EXAMINATION: On examination today, blood pressure 126/61, heart rate 69 per minute. She is afebrile. Examination of the heart S1, S2. Examination of the lungs, decreased breath sounds at bases. Abdomen: Soft, nontender, obese. Exam of lower extremities shows edema 2 to 3+ bilaterally, slowly improving. SOUP PERSON exam grossly intact. Left foot is currently wrapped. LAB: Show sodium 136, potassium 4.1, serum creatinine 2.18, hemoglobin 9.5 g/dL. ASSESSMENT: 1. Acute kidney injury secondary to postinfectious GN status post kidney biopsy. Currently maintained on daily ultrafiltration treatments currently for volume overload. The patient is also maintained on Lasix drip which I will continue for now. Serum creatinine is remaining stable. A 24 hour urine output was 2 L and we had 2.5 L of ultrafiltration with dialysis yesterday. 2. Severe volume overload maintained on daily ultrafiltration and Lasix drip. We will continue same for now. 3. Left foot cellulitis with cultures positive for Staph aureus, status post amputation of left 3rd toe. 4. Acute hypoxic respiratory failure secondary to volume overload/ARDS, slowly improving with decreasing oxygen requirements. PLAN: Continue with the Lasix drip. We will plan will plan for ultrafiltration again in a.m. Avoid hypotension as renal function is still recovering and remaining fairly stable with creatinine at about 2. Again, the patient is not being dialyzed but only has ultrafiltration on a daily basis. MMODL / IJN: [id number] /
[2021-02-27 16:50] LABS: Glucose,Whole Blood 373 mg/dL (75-99)
[2021-02-27 18:11] LABS: Glucose,Whole Blood 356 mg/dL (75-99)
[2021-02-27] MEDS: ALPRAZolam 0.5 MG TAB PO PRN (21:29)
[2021-02-27] MEDS: INSULIN DETEMIR (LEVEMIR) 100 UNIT/ML SYR SQ SCH (21:29)
[2021-02-27 21:39] LABS: Glucose,Whole Blood 316 mg/dL (75-99)
[2021-02-28] MEDS: PIPERACILLIN-TAZOBACTAM 3.375 GM in SODIUM CHLORIDE 0.9% 100 ML IVPB SCH ×3 (03:43→20:45)
[2021-02-28 04:49] LABS: HCT 27.5 % (34.0-46.0); HGB 9.2 gm/dL (11.4-16.0); MCH 27.3 pg (25.0-35.0); MCHC 33.3 g/dL (31.0-37.0); MCV 82.1 fL (80.0-100.0); Mean Platelet Volume 9.3; Platelet Count 126 k/uL (150-450); RBC 3.36 m/uL (3.80-5.40); RDW 13.8 % (11.5-15.5); WBC 14.5 k/uL (3.8-10.6)
[2021-02-28 05:02] LABS: Calcium 7.9 mg/dL (8.4-10.2); Magnesium 1.9 mg/dL (1.6-2.3); Potassium 3.8 mmol/L (3.5-5.1)
--- NOTE | 2021-02-28 05:18 | PN ---
PROGRESS NOTE DATE OF SERVICE: 02/27/2021 REASON FOR FOLLOWUP: 1. Left foot abscess cellulitis. 2. Pneumonia. INTERVAL HISTORY: Patient is afebrile. She is breathing comfortably. Still requiring high-flow oxygen. Denies any chest pain. No worsening cough. No cough. No abdominal pain or diarrhea. PHYSICAL EXAMINATION: Blood pressure 140/73 with a pulse of 73, temperature 98. She is 92% on 70% FiO2. General description is a middle-aged female lying in bed in no distress. Respiratory system: Unlabored breathing. Decreased intensity of cough. No wheeze. Heart S1, S2. Regular rate and rhythm. Abdomen soft, no tenderness. LABS: Hemoglobin is 9.5, white count 14.8. BUN of 82, creatinine is 2.1. DIAGNOSTIC IMPRESSION AND PLAN: Patient with left foot abscess, cellulitis with emesis, status post left third toe amputation. Subsequently developing renal failure currently undergoing dialysis and there is a question of pneumonia, covered with Zosyn to continue for now while monitoring clinical course closely. Continue supportive care. MMODL / IJN: [id number] /
[2021-02-28 06:40] LABS: Glucose,Whole Blood 249 mg/dL (75-99)
[2021-02-28] MEDS: COLLAGENASE 250 UNIT/GM OINTMENT 30 GM TUBE TOPICAL SCH (06:41)
[2021-02-28] MEDS: INSULIN ASPART (NovoLOG) 100 UNIT/ML VIAL SQ SCH ×7 (06:42→20:45)
[2021-02-28] MEDS: INSULIN DETEMIR (LEVEMIR) 100 UNIT/ML SYR SQ SCH ×2 (06:42→20:45)
[2021-02-28] MEDS: methylPREDNISolone SOD SUCCI 125 MG/2 ML VIAL IV SCH ×5 (06:43→23:23)
[2021-02-28] MEDS: FUROSEMIDE 100 MG in SODIUM CHLORIDE 0.9% 90 ML IV SCH ×2 (06:47→16:47)
[2021-02-28] MEDS: hydrALAZINE HCL 25 MG TAB PO SCH ×3 (08:37→20:45)
[2021-02-28] MEDS: FOLIC ACID 1 MG TAB PO SCH (08:37)
[2021-02-28] MEDS: HEPARIN SODIUM,PORCINE/PF 5,000 UNIT/0.5 ML SYRINGE SQ SCH ×4 (08:37→23:24)
[2021-02-28] MEDS: CYANOCOBALAMIN 500 MCG TAB PO SCH (08:37)
[2021-02-28] MEDS: FAMOTIDINE 20 MG TAB PO SCH (08:37)
[2021-02-28] MEDS: HYDROCORTISONE 1% CREAM 454 GM JAR TOPICAL SCH ×3 (08:38→20:55)
[2021-02-28] MEDS: PREGABALIN 75 MG CAP PO SCH ×2 (08:39→20:45)
--- NOTE | 2021-02-28 09:05 | P.PN ---
Subjective Progress Note Date: 02/28/21 Principal diagnosis: Patient is a 61-year-old female with a history of diabetes, spinal fractures secondary to accident with history of surgery, and neuropathy who initially presented secondary to concerns for left foot infection. She was found to have staph aureus infection of her left third toe. She was seen by ID and vascular surgery. She was diagnosed with what saenz green of the left third toe and subsequently underwent an ray amputation of the left third toe. I nitially she was progressing well. Plan had been for discharge home on oral antibiotics. However on day of discharge she had a significant increase in her creatinine. She also developed a diffuse papular rash with raised red lesion, and developed some shortness of breath. Chest x-ray showed pulmonary edema. There is also concern for possible pulmonary embolism and patient was started on a heparin drip. This was ruled out heparin drip was discontinued. Nephrology was consulted. She was continued on IV fluids. She then had progressive worsening of her shortness of breath and worsening interstitial infiltrate. She was seen by pulmonary who is concern for possible by basilar pneumonia. She had been started on doxycycline, No, and Zosyn with concern for allergic reaction to cefazolin . She was started on steroids. Her for possible pulmonary renal syndrome. The following testing was negative: urine eosinophils which were negative, KRANTHI which was positive, c-ANCA and p-ANCA both negative, anti-GBM negative. 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 She was started on aggressive diuresis secondary to acute fluid overload. Her kidney function improved with steroids. She again had worsening of her shortness of breath on 02/19 requiring replacement on BiPAP as well as initiation of Lasix drip. She was also transitioned from daptomycin to Zosyn for increased pulmonary coverage for possible underlying pneumonia. She started undergoing daily ultrafiltrate on 02/23. 02/28/2021: on high flow oxygen . no cp no abd pain no n/v or dizziness remains afebrile receiving UF Objective - Vital Signs Vital signs: Vital Signs Temp 98 F 02/28/21 04:00 Pulse 79 02/28/21 07:00 Resp 24 02/28/21 07:00 BP 120/63 02/28/21 07:00 Pulse Ox 95 02/28/21 07:44 Intake & Output 02/27/21 02/28/21 02/28/21 18:59 06:59 18:59 Intake Total 211.833 412.666 Output Total 4155 1510 Balance -3943.167 -1097.334 Weight 89.2 kg Intake: IV 120 220 0.9 120 120 Piperacillin-Tazobactam 3 100 .375 gm In Sodium Chloride 0.9% 100 ml @ 25 mls/hr IVPB Q12H [facility] Rx# :[id number] Intake, IV Titration 91.833 192.666 Amount Furosemide 100 mg In 91.833 192.666 Sodium Chloride 0.9% 90 ml @ 10 MG/HR 10 mls/hr IV .Q10H [facility] Rx#: [id number] Output: Urine 655 1510 Hemodialysis 3500 Other: Voiding Method Indwelling Catheter Indwelling Catheter - Exam Patient seen and examined at bedside. on high flow oxygen. General: Ill appearing, no distress, appears at stated age Derm: warm, dry Head: atraumatic, normocephalic, symmetric Eyes: EOMI, no lid lag, anicteric sclera Mouth: no lip lesion, mucus membranes moist Cardiovascular: S1S2 reg, no murmur, positive posterior tibial pulse bilateral, Lungs: Decreased bs bilateral, no rhonchi, no rales ,on airVo Abdominal: soft, nontender to palpation, no guarding, no appreciable organomegaly Ext: no gross muscle atrophy, diffuse anasarca, no contractures Neuro: CN II-XI grossly intact, no focal neuro deficits Psych: Awake, oriented, appropraite affect. - Labs CBC & Chem 7: 02/28/21 04:07 02/28/21 04:07 Labs: Abnormal Lab Results - Last 24 Hours (Table) 02/27/21 02/27/21 02/27/21 Range/Units 11:40 16:48 18:09 WBC (3.8-10.6) k/uL RBC (3.80-5.40) m/uL Hgb (11.4-16.0) gm/dL Hct (34.0-46.0) % Plt Count (150-450) k/uL Sodium (137-145) mmol/L BUN (7-17) mg/dL Creatinine (0.52-1.04) mg/dL Glucose (74-99) mg/dL POC Glucose (mg/dL) 146 H 373 H 356 H (75-99) mg/dL Calcium (8.4-10.2) mg/dL 02/27/21 02/28/21 02/28/21 Range/Units 21:27 04:07 04:07 WBC 14.5 H (3.8-10.6) k/uL RBC 3.36 L (3.80-5.40) m/uL Hgb 9.2 L (11.4-16.0) gm/dL Hct 27.5 L (34.0-46.0) % Plt Count 126 L (150-450) k/uL Sodium 133 L (137-145) mmol/L BUN 74 H (7-17) mg/dL Creatinine 1.95 H (0.52-1.04) mg/dL Glucose 217 H (74-99) mg/dL POC Glucose (mg/dL) 316 H (75-99) mg/dL Calcium 7.9 L (8.4-10.2) mg/dL 02/28/21 Range/Units 06:37 WBC (3.8-10.6) k/uL RBC (3.80-5.40) m/uL Hgb (11.4-16.0) gm/dL Hct (34.0-46.0) % Plt Count (150-450) k/uL Sodium (137-145) mmol/L BUN (7-17) mg/dL Creatinine (0.52-1.04) mg/dL Glucose (74-99) mg/dL POC Glucose (mg/dL) 249 H (75-99) mg/dL Calcium (8.4-10.2) mg/dL Assessment and Plan Plan: Acute renal failure due to 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 -Ilikely secondary to recurrent blood draws from prolonged hospital stay -Follow CBC -No signs of bleeding Hemoglobin 9.2 today Wet gangrene of the left third toe, staph aureus -Status post ray amputation -Vascular surgery recommendations -Infectious disease recommendations -Daptomycin day #10 was completed and patient was transitioned to Zosyn D # 6 DM 2, hypoglycemia and hyperglycemia related to steroid use - levemir increased, fixed dose increased and SSI - follow BS - A1C 8.1 Hypertension, controlled -Continue with Norvasc - follow BP Vitamin B 6 deficiency - B complex replacement Hyperkalemia Hypocalcemia Metabolic acidosis Severe frontal headache, resolved Severe sepsis without septic shock Disposition: Remains in ICU on high flow oxygen. Home vs Rehab pending clinical progression
--- NOTE | 2021-02-28 10:14 | P.PN ---
Subjective Progress Note Date: 02/28/21 61-year-old who presented to the emergency department on January 31, with headache, possible seizure, and also possible infection to the left foot. The patient had apparently not been feeling well for about 3-4 days prior to admission. She had a right-sided occipital headache. In addition, she apparently stepped on a stick in the yard, and developed some redness and drainage from the left foot. In addition, the patient apparently had a low- grade fever. The patient does have a history of diabetes mellitus. She recently moved to [place], from [place]. She has no doctor in this area. Anyway, over the last few days, she's been complaining of shortness of breath. Her oxygen requirements have been going up, and a chest x-ray showed bilateral infiltrates and possibly effusions, as well as a computed tomography scan showing bilateral pleural effusions, and bibasilar infiltrates and atelectasis, left greater than right. For that reason, we were consulted. The patient was on AIRVO at 45 L/m with an FiO2 of 56%. She did not appear to be particularly short of breath. The patient did state that since being on the AIRVO, she has felt better. She does have a cough, which is nonproductive. She denies any chest pain or chest discomfort. She also denies any fever or chills. Her chest x-ray and CAT scan are reviewed. White count 10.5, hemoglobin 9.9, hematocrit 30.8, and platelet count 411,000. Sed rate is 99. Sodium 134, potassium 5.4, chlorides 107, CO2 16, anion gap 11, BUN 88, and creatinine 3.31. Calcium 7.9, phosphorus 7.2. Venous Dopplers of the bilateral lower extremities were negative for DVT. A perfusion lung scan was low probability for PE. A chest x- ray done on the fifth, showed bilateral basilar infiltrates, left greater than right, with more dense consolidation in the left lower lobe. CAT scan of the chest showed bilateral pleural effusions, with extensive bilateral pneumonia and lower lobe atelectasis. COVID testing was negative, and the pro-calcitonin level was a bit elevated at 0.36. The patient is seen today 02/14/2021 in follow-up on the regular medical floor. She is currently sitting up in a chair at the bedside. Awake, alert in no acute distress. She states she is breathing a little bit better today compared to yesterday. She has been converted from the AirVo high flow oxygen back to 8 L high flow nasal cannula. O2 saturations at 95%. She's afebrile. Hemodynamically stable. Left foot wound cultures positive for MSSA. Follow-up blood cultures revealing no growth. Ultrasound of the chest does reveal a 7.8 cm pocket on the right and a 10.4 cm pocket on the left. Marked for possible thoracentesis. Echocardiogram revealed preserved left ventricular systolic function with ejection fraction 55%. No valvular heart disease. White count 17.4. Hemoglobin 9.4. Sodium 132. Potassium 5.1. Bicarb 20.5. BUN 97. Creatinine 2.9. GFR 17. Glucose 239. Being worked up for possible vasculitis, possible interstitial nephritis. ANCA pending. Possible kidney biopsy today. Remains on D5W with 3 A of bicarb at 50 MLS per hour along with oral bicarb. Antibiotics in the form of Vibramycin, daptomycin, Zosyn. This patient was last seen by us on 02/14/2021, however the patient had so many other issues being addressed by many other consultants, and her main issue was mostly related to her cellulitis, and acute kidney injury. Dr. Corbett has signed off the case on 02/14, and last night I was called about this patient developing worsening shortness of breath, she was evaluated by the rapid response team, and she was clearly in pulmonary edema. Patient was placed on BiPAP, and I recommended immediate transfer to the ICU. I saw this patient today in the ICU, she is on BiPAP, and she is definitely in pulmonary edema. Patient is on IPAP of 10 and EPAP of 5 and FiO2 of 60%, and she is in moderate respiratory distress. She is receiving antibiotics in the form of daptomycin for her cellulitis of the foot, and she received earlier a Lasix dose of 60 mg IV push, and I recommended a Lasix drip at 10 mg per hour. Discussed her condition with her boyfriend at bedside, and made aware that the patient's condition is quite serious, and the patient may end up requiring intubation and mechanical ventilation if she doesn't improve much with Lasix drip. Labs today showed leukocytosis with WBC of 23.2 hemoglobin 9.5. BUN is up to 120 creatinine is 2.16. The patient is seen today 02/21/2021 in follow-up in the intensive care unit. She is currently resting fairly comfortably in bed. Awake and alert. She is maintained on BiPAP 10/5 and 70% FiO2 with O2 saturation of 93%. She is currently on a Lasix drip at 10 mg per hour. Echocardiogram revealed preserved left ventricular systolic function with ejection fraction of 55%. Her chest x- ray is showing less fluid volume overload. She has improving edema of the lower extremities. She is diuresing well. Currently in a -4.4 L. Remains in sinus rhythm. Cultures of the third left toe were positive for MSSA. Blood cultures reveal no growth. White count 20.3. Hemoglobin 9.6. Sodium 141. Potassium 4.7. BUN 116. Creatinine 2.24. ProBNP 3280. She remains on daptomycin. Heparin for DVT prophylaxis. The patient is seen today 02/22/2021 in follow-up in the intensive care unit. She remains awake and alert. She is continued on BiPAP currently 10/5 and 90% FiO2 to maintain O2 saturations in the 90s. She remains on a Lasix drip at 10 mg per hour. She is in -8 L fluid balance in the past 48 hours. She remains on Solu-Medrol 60 mg every 8 hours. She is continued on antibiotics in the form of daptomycin. Chest x-ray continues to show diffuse bilateral airspace disease with bilateral pleural effusions. Pulmonary edema versus ARDS versus pneumonia. Follow-up blood cultures revealed no growth. White count 22.6. Hemoglobin 9.2. Sodium 142. Potassium 4.3. Creatinine 2.53. Valentin virus not detected. Heparin for DVT prophylaxis. The patient is seen today 02/28/2021 in follow-up in the intensive care unit. She is currently sitting up in bed. Receiving hemodialysis. She did receive hemodialysis yesterday with 3.5 L of fluid removed. She is still on AirVo high flow oxygen at 50 L/m at 65% FiO2. She has been alternating with BiPAP 12/5 and 65% FiO2 as well. Blood cultures revealed no growth. White count 14.5. Hemoglobin 9.2. Platelet count 126. Sodium 133. Potassium 3.8. Creatinine 1.95. Glucose 217. She remains on a Lasix drip at 10 mg per hour. Antibiotics in the form of Zosyn. Heparin for DVT prophylaxis. She remains on IV Solu- Medrol. Objective - Vital Signs Vital signs: Vital Signs Temp 97.7 F 02/28/21 08:00 Pulse 83 02/28/21 09:00 Resp 25 H 02/28/21 09:00 BP 102/50 02/28/21 09:00 Pulse Ox 88 L 02/28/21 09:00 Intake & Output 02/27/21 02/28/21 02/28/21 18:59 06:59 18:59 Intake Total 211.833 412.666 220 Output Total 4155 1510 80 Balance -3943.167 -1097.334 140 Weight 89.2 kg Intake: IV 120 220 20 0.9 120 120 20 Piperacillin-Tazobactam 3 100 .375 gm In Sodium Chloride 0.9% 100 ml @ 25 mls/hr IVPB Q12H [facility] Rx# :[id number] Intake, IV Titration 91.833 192.666 Amount Furosemide 100 mg In 91.833 192.666 Sodium Chloride 0.9% 90 ml @ 10 MG/HR 10 mls/hr IV .Q10H [facility] Rx#: [id number] Oral 200 Output: Urine 655 1510 80 Hemodialysis 3500 Other: Voiding Method Indwelling Catheter Indwelling Catheter Indwelling Catheter - Exam GENERAL EXAM: Alert, very pleasant 61-year-old female patient, on BiPAP 12/5 and 65% FiO2 alternating with AirVo at 50 L and 65% FiO2, fairly comfortable in no apparent distress. HEAD: Normocephalic. EYES: Normal reaction of pupils, equal size. NOSE: Clear with pink turbinates. THROAT: No erythema or exudates. NECK: No masses, no JVD. CHEST: No chest wall deformity. LUNGS: Equal air entry with crackles in the bilateral bases, diminished CVS: S1 and S2 normal with no audible murmur, regular rhythm. ABDOMEN: No hepatosplenomegaly, normal bowel sounds, no guarding or rigidity. SPINE: No scoliosis or deformity SKIN: No rashes CENTRAL NERVOUS SYSTEM: No focal deficits, tone is normal in all 4 extremities. EXTREMITIES: Dressing to left foot dry and intact. There is trace peripheral edema. No clubbing, no cyanosis. Peripheral pulses are intact. - Labs CBC & Chem 7: 02/28/21 04:07 02/28/21 04:07 Labs: Abnormal Lab Results - Last 24 Hours (Table) 02/27/21 02/27/21 02/27/21 Range/Units 11:40 16:48 18:09 WBC (3.8-10.6) k/uL RBC (3.80-5.40) m/uL Hgb (11.4-16.0) gm/dL Hct (34.0-46.0) % Plt Count (150-450) k/uL Sodium (137-145) mmol/L BUN (7-17) mg/dL Creatinine (0.52-1.04) mg/dL Glucose (74-99) mg/dL POC Glucose (mg/dL) 146 H 373 H 356 H (75-99) mg/dL Calcium (8.4-10.2) mg/dL 02/27/21 02/28/21 02/28/21 Range/Units 21:27 04:07 04:07 WBC 14.5 H (3.8-10.6) k/uL RBC 3.36 L (3.80-5.40) m/uL Hgb 9.2 L (11.4-16.0) gm/dL Hct 27.5 L (34.0-46.0) % Plt Count 126 L (150-450) k/uL Sodium 133 L (137-145) mmol/L BUN 74 H (7-17) mg/dL Creatinine 1.95 H (0.52-1.04) mg/dL Glucose 217 H (74-99) mg/dL POC Glucose (mg/dL) 316 H (75-99) mg/dL Calcium 7.9 L (8.4-10.2) mg/dL 02/28/21 Range/Units 06:37 WBC (3.8-10.6) k/uL RBC (3.80-5.40) m/uL Hgb (11.4-16.0) gm/dL Hct (34.0-46.0) % Plt Count (150-450) k/uL Sodium (137-145) mmol/L BUN (7-17) mg/dL Creatinine (0.52-1.04) mg/dL Glucose (74-99) mg/dL POC Glucose (mg/dL) 249 H (75-99) mg/dL Calcium (8.4-10.2) mg/dL Assessment and Plan Assessment: 1 Acute hypoxemic respiratory failure secondary to fluid volume overload and bilateral effusions,transferred to the intensive care unit 02/19/2021 and currently requiring BiPAP alternating with AirVo at 65% FiO2, Lasix drip. 2 Status post puncture wound to the left foot, which has become infected with methicillin sensitive staph aureus, amputated third toe. Currently on Zosyn 3 History of diabetes mellitus. 4 Non-anion gap metabolic acidosis, secondary to renal failure. 5 Acute kidney injury secondary to proliferative and exudative glomerulonephrit is, biopsy proven, secondary to MSSA. Now requiring hemodialysis 6 Mild hyperkalemia, improved. 7 Anemia. Plan: The patient was seen and evaluated by Dr. Corbett Continue the current treatment plan Receiving hemodialysis again today Titrate the FiO2 as tolerated Follow-up chest x-ray and labs in the a.m. We will continue to follow and make further recommendations based on her clinical status Critical care time 36 minutes I, the cosigning physician, performed a history & physical examination of the patient. Lungs sounds with bilateral crackles in the posterior bases, dimi nished. Maintaining good O2 saturations in the 90s on alternating AirVo and BiPAP 12/5 and 65% FiO2. I discussed the assessment and plan of care with my nurse practitioner, Ramila Guillen. I attest to the above note as dictated by her.
[2021-02-28 11:24] LABS: Glucose,Whole Blood 170 mg/dL (75-99)
--- NOTE | 2021-02-28 11:47 | PN ---
PROGRESS NOTE Patient is seen for followup for acute kidney injury associated with acute post- infectious GN and severe volume overload. The patient remains on BiPAP. She has had daily ultrafiltration and she is also maintained on Lasix drip. We have removed close to 3 L almost on a daily basis. The patient tolerates the ultrafiltration very well. On examination today, patient is seen on hemodialysis. She has just finished her treatment. We had about 3.5 L of fluid removed. She is on BiPAP. Blood pressure 102/50, heart rate 83 per minute. She is afebrile. EXAMINATION OF THE HEART: S1 and S2. EXAMINATION OF LUNGS: Bilateral breath sounds are heard. Decreased breath sounds at the bases. Basal crackles. ABDOMEN: Soft, nontender, obese. LOWER EXTREMITIES: Examination of lower extremities shows edema 2+ bilaterally. Left foot is currently wrapped. Labs show sodium 133, potassium 3.8, chloride 102, BUN 74, creatinine 1.95, hemoglobin 9.2 g/dL. ASSESSMENT: 1. Acute kidney injury secondary to post-infectious GN, status post kidney biopsy. Continue with Lasix drip and daily ultrafiltration. I will increase the daily UF to about 4 to 4.5 L and increase duration to about 4 hours every day, as she remains with significant volume overload. 2. Volume overload, slowly improving. 3. Acute hypoxic respiratory failure secondary to fluid overload and pneumonia, still requiring BiPAP on and off. 4. Left foot cellulitis with amputation of right third toe. Wound culture grew Staph aureus which is MSSA. PLAN: Will consult Vascular Surgery for new dialysis catheter placement, as this catheter is not working well. We will plan for a longer treatment tomorrow. Continue with the Lasix drip for now. MMODL / IJN: [id number] /
[2021-02-28 16:54] LABS: Glucose,Whole Blood 337 mg/dL (75-99)
--- NOTE | 2021-02-28 18:37 | PN ---
PROGRESS NOTE DATE OF SERVICE: 02/28/2021 REASON FOR FOLLOWUP: Left foot abscess and cellulitis and pneumonia. INTERVAL HISTORY: The patient is afebrile. The patient is still requiring high-flow oxygen. The patient denies having any chest pain or any worsening cough. No abdominal pain or diarrhea. PHYSICAL EXAMINATION: Blood pressure 131/66, pulse of 82, temperature 97.7. She is 94% on 15 L high-flow oxygen. GENERAL DESCRIPTION: General description is a middle-aged female lying in bed in no distress. RESPIRATORY SYSTEM: Unlabored breathing. Decreased breath sounds at the bases. No wheeze. HEART: S1, S2. Regular rate and rhythm. ABDOMEN: Soft. LAB DATA: Hemoglobin is 9.2, white count 14.5, BUN of 74, creatinine 1.95. DIAGNOSTIC IMPRESSION AND PLAN: Patient with a left foot abscess and cellulitis secondary to MSSA, subsequently developing renal failure; currently on dialysis and a concern for pneumonia. The patient is currently on Zosyn. That will be continued for now while monitoring clinical course closely. Continue supportive care. MMODL / IJN: [id number] /
[2021-02-28] MEDS: ALBUTEROL NEBULIZED 2.5 MG/3 ML INHALATION PRN (19:54)
[2021-02-28] MEDS: ALPRAZolam 0.5 MG TAB PO PRN (20:45)
[2021-02-28 20:47] LABS: Glucose,Whole Blood 461 mg/dL (75-99)
[2021-03-01] MEDS: FUROSEMIDE 100 MG in SODIUM CHLORIDE 0.9% 90 ML IV SCH ×3 (02:59→21:45)
[2021-03-01] MEDS: PIPERACILLIN-TAZOBACTAM 3.375 GM in SODIUM CHLORIDE 0.9% 100 ML IVPB SCH ×2 (03:23→15:26)
[2021-03-01 04:08] LABS: Basophils % (A) 0 %; Eosinophils % (A) 0 %; HGB 8.5 gm/dL (11.4-16.0); Lymphocytes # (A) 0.2 k/uL (1.0-4.8); Lymphocytes % (A) 1 %; MCH 27.1 pg (25.0-35.0); MCHC 32.5 g/dL (31.0-37.0); MCV 83.2 fL (80.0-100.0); Mean Platelet Volume 9.8; Monocytes # (A) 0.3 k/uL (0-1.0); Monocytes % (A) 2 %; Neutrophils # (A) 11.9 k/uL (1.3-7.7); Neutrophils % (A) 96 %; Platelet Count 123 k/uL (150-450); RBC 3.13 m/uL (3.80-5.40); RDW 13.9 % (11.5-15.5); WBC 12.4 k/uL (3.8-10.6)
[2021-03-01 04:18] LABS: Albumin 2.3 g/dL (3.5-5.0); Calcium 7.9 mg/dL (8.4-10.2); Potassium 3.7 mmol/L (3.5-5.1); Total Bilirubin 0.4 mg/dL (0.2-1.3); Total Protein 4.7 g/dL (6.3-8.2)
[2021-03-01 06:28] LABS: Glucose,Whole Blood 330 mg/dL (75-99)
[2021-03-01] MEDS: INSULIN ASPART (NovoLOG) 100 UNIT/ML VIAL SQ SCH ×7 (06:42→21:44)
[2021-03-01] MEDS: methylPREDNISolone SOD SUCCI 125 MG/2 ML VIAL IV SCH ×3 (06:42→17:46)
[2021-03-01] MEDS: INSULIN DETEMIR (LEVEMIR) 100 UNIT/ML SYR SQ SCH (06:42)
--- NOTE | 2021-03-01 08:10 | XR ---
EXAMINATION TYPE: XR chest 1V portable DATE OF EXAM: 03/01/2021 COMPARISON: Chest x-ray 02/27/2021 HISTORY: ARDS TECHNIQUE: Single frontal view of the chest is obtained. FINDINGS: There may be some slight interval improved visualization of the hemidiaphragms. Bilateral airspace disease is diffuse. Right-sided PICC line is stable. No pneumothorax or pleural effusion. Ca rdiac mediastinal silhouette is stable. There are overlying leads. IMPRESSION: There may be some slight interval improvement in aeration
[2021-03-01] MEDS: COLLAGENASE 250 UNIT/GM OINTMENT 30 GM TUBE TOPICAL SCH (08:28)
[2021-03-01] MEDS: HEPARIN SODIUM,PORCINE/PF 5,000 UNIT/0.5 ML SYRINGE SQ SCH ×2 (08:28→15:26)
[2021-03-01] MEDS: HYDROCORTISONE 1% CREAM 454 GM JAR TOPICAL SCH ×3 (08:28→21:47)
[2021-03-01] MEDS: hydrALAZINE HCL 25 MG TAB PO SCH ×3 (08:28→21:46)
[2021-03-01] MEDS: CYANOCOBALAMIN 500 MCG TAB PO SCH (08:28)
[2021-03-01] MEDS: DULoxetine HCL 30 MG CAPSULE.DR PO SCH (08:28)
[2021-03-01] MEDS: FOLIC ACID 1 MG TAB PO SCH (08:29)
[2021-03-01] MEDS: FAMOTIDINE 20 MG TAB PO SCH (08:29)
[2021-03-01] MEDS: PREGABALIN 75 MG CAP PO SCH ×2 (08:34→21:43)
--- NOTE | 2021-03-01 10:16 | P.PN ---
Subjective Progress Note Date: 03/01/21 61-year-old who presented to the emergency department on January 31, with headache, possible seizure, and also possible infection to the left foot. The patient had apparently not been feeling well for about 3-4 days prior to admission. She had a right-sided occipital headache. In addition, she apparently stepped on a stick in the yard, and developed some redness and drainage from the left foot. In addition, the patient apparently had a low- grade fever. The patient does have a history of diabetes mellitus. She recently moved to [place], from [place]. She has no doctor in this area. Anyway, over the last few days, she's been complaining of shortness of breath. Her oxygen requirements have been going up, and a chest x-ray showed bilateral infiltrates and possibly effusions, as well as a computed tomography scan showing bilateral pleural effusions, and bibasilar infiltrates and atelectasis, left greater than right. For that reason, we were consulted. The patient was on AIRVO at 45 L/m with an FiO2 of 56%. She did not appear to be particularly short of breath. The patient did state that since being on the AIRVO, she has felt better. She does have a cough, which is nonproductive. She denies any chest pain or chest discomfort. She also denies any fever or chills. Her chest x-ray and CAT scan are reviewed. White count 10.5, hemoglobin 9.9, hematocrit 30.8, and platelet count 411,000. Sed rate is 99. Sodium 134, potassium 5.4, chlorides 107, CO2 16, anion gap 11, BUN 88, and creatinine 3.31. Calcium 7.9, phosphorus 7.2. Venous Dopplers of the bilateral lower extremities were negative for DVT. A perfusion lung scan was low probability for PE. A chest x- ray done on the fifth, showed bilateral basilar infiltrates, left greater than right, with more dense consolidation in the left lower lobe. CAT scan of the chest showed bilateral pleural effusions, with extensive bilateral pneumonia and lower lobe atelectasis. COVID testing was negative, and the pro-calcitonin level was a bit elevated at 0.36. The patient is seen today 02/14/2021 in follow-up on the regular medical floor. She is currently sitting up in a chair at the bedside. Awake, alert in no acute distress. She states she is breathing a little bit better today compared to yesterday. She has been converted from the AirVo high flow oxygen back to 8 L high flow nasal cannula. O2 saturations at 95%. She's afebrile. Hemodynamically stable. Left foot wound cultures positive for MSSA. Follow-up blood cultures revealing no growth. Ultrasound of the chest does reveal a 7.8 cm pocket on the right and a 10.4 cm pocket on the left. Marked for possible thoracentesis. Echocardiogram revealed preserved left ventricular systolic function with ejection fraction 55%. No valvular heart disease. White count 17.4. Hemoglobin 9.4. Sodium 132. Potassium 5.1. Bicarb 20.5. BUN 97. Creatinine 2.9. GFR 17. Glucose 239. Being worked up for possible vasculitis, possible interstitial nephritis. ANCA pending. Possible kidney biopsy today. Remains on D5W with 3 A of bicarb at 50 MLS per hour along with oral bicarb. Antibiotics in the form of Vibramycin, daptomycin, Zosyn. This patient was last seen by us on 02/14/2021, however the patient had so many other issues being addressed by many other consultants, and her main issue was mostly related to her cellulitis, and acute kidney injury. Dr. Corbett has signed off the case on 02/14, and last night I was called about this patient developing worsening shortness of breath, she was evaluated by the rapid response team, and she was clearly in pulmonary edema. Patient was placed on BiPAP, and I recommended immediate transfer to the ICU. I saw this patient today in the ICU, she is on BiPAP, and she is definitely in pulmonary edema. Patient is on IPAP of 10 and EPAP of 5 and FiO2 of 60%, and she is in moderate respiratory distress. She is receiving antibiotics in the form of daptomycin for her cellulitis of the foot, and she received earlier a Lasix dose of 60 mg IV push, and I recommended a Lasix drip at 10 mg per hour. Discussed her condition with her boyfriend at bedside, and made aware that the patient's condition is quite serious, and the patient may end up requiring intubation and mechanical ventilation if she doesn't improve much with Lasix drip. Labs today showed leukocytosis with WBC of 23.2 hemoglobin 9.5. BUN is up to 120 creatinine is 2.16. The patient is seen today 02/21/2021 in follow-up in the intensive care unit. She is currently resting fairly comfortably in bed. Awake and alert. She is maintained on BiPAP 10/5 and 70% FiO2 with O2 saturation of 93%. She is currently on a Lasix drip at 10 mg per hour. Echocardiogram revealed preserved left ventricular systolic function with ejection fraction of 55%. Her chest x- ray is showing less fluid volume overload. She has improving edema of the lower extremities. She is diuresing well. Currently in a -4.4 L. Remains in sinus rhythm. Cultures of the third left toe were positive for MSSA. Blood cultures reveal no growth. White count 20.3. Hemoglobin 9.6. Sodium 141. Potassium 4.7. BUN 116. Creatinine 2.24. ProBNP 3280. She remains on daptomycin. Heparin for DVT prophylaxis. The patient is seen today 02/22/2021 in follow-up in the intensive care unit. She remains awake and alert. She is continued on BiPAP currently 10/5 and 90% FiO2 to maintain O2 saturations in the 90s. She remains on a Lasix drip at 10 mg per hour. She is in -8 L fluid balance in the past 48 hours. She remains on Solu-Medrol 60 mg every 8 hours. She is continued on antibiotics in the form of daptomycin. Chest x-ray continues to show diffuse bilateral airspace disease with bilateral pleural effusions. Pulmonary edema versus ARDS versus pneumonia. Follow-up blood cultures revealed no growth. White count 22.6. Hemoglobin 9.2. Sodium 142. Potassium 4.3. Creatinine 2.53. Valentin virus not detected. Heparin for DVT prophylaxis. The patient is seen today 02/28/2021 in follow-up in the intensive care unit. She is currently sitting up in bed. Receiving hemodialysis. She did receive hemodialysis yesterday with 3.5 L of fluid removed. She is still on AirVo high flow oxygen at 50 L/m at 65% FiO2. She has been alternating with BiPAP 12/5 and 65% FiO2 as well. Blood cultures revealed no growth. White count 14.5. Hemoglobin 9.2. Platelet count 126. Sodium 133. Potassium 3.8. Creatinine 1.95. Glucose 217. She remains on a Lasix drip at 10 mg per hour. Antibiotics in the form of Zosyn. Heparin for DVT prophylaxis. She remains on IV Solu- Medrol. The patient is seen today 03/01/2021 in follow-up in the intensive care unit. He is currently resting fairly comfortably in bed. She received dialysis again yesterday with 3.5 L removed. She remains on AirVo high flow oxygen at 50 L/m at 76% FiO2. She remains on a Lasix drip at 10 mg per hour. 0.9 normal setting at KVO. His x-ray continues to show diffuse bilateral airspace disease with some slight improvement. Right-sided PICC line remains in place. White count 12.4. Hemoglobin 8.5. Platelets 123. Lymphocytes 0.2. Sodium 131. Potassium 3.7. Creatinine 2.13. Glucose 343. She remains on Zosyn. Bronchodilators. IV Solu-Medrol. Heparin for DVT prophylaxis. Objective - Vital Signs Vital signs: Vital Signs Temp 98 F 03/01/21 08:00 Pulse 81 03/01/21 09:00 Resp 22 03/01/21 09:00 BP 141/59 03/01/21 09:00 Pulse Ox 95 03/01/21 09:00 Intake & Output 02/28/21 03/01/21 03/01/21 18:59 06:59 18:59 Intake Total 1060 220 155 Output Total 3790 610 135 Balance -2730 -390 20 Weight 89.2 kg 90.2 kg Intake: IV 210 120 30 0.9 110 120 30 Piperacillin-Tazobactam 3 100 .375 gm In Sodium Chloride 0.9% 100 ml @ 25 mls/hr IVPB Q12H ERIC Rx# :[id number] Intake, IV Titration 100 100 Amount Furosemide 100 mg In 100 100 Sodium Chloride 0.9% 90 ml @ 10 MG/HR 10 mls/hr IV .Q10H ERIC Rx#: [id number] Oral 750 125 Output: Urine 290 610 135 Hemodialysis 3500 Other: Voiding Method Indwelling Catheter Indwelling Catheter Indwelling Catheter - Exam GENERAL EXAM: Alert, very pleasant 61-year-old female patient, on BiPAP 12/5 and 65% FiO2 alternating with AirVo at 50 L and 75% FiO2, fairly comfortable in no apparent distress. HEAD: Normocephalic. EYES: Normal reaction of pupils, equal size. NOSE: Clear with pink turbinates. THROAT: No erythema or exudates. NECK: No masses, no JVD. CHEST: No chest wall deformity. LUNGS: Equal air entry with crackles in the bilateral bases, diminished CVS: S1 and S2 normal with no audible murmur, regular rhythm. ABDOMEN: No hepatosplenomegaly, normal bowel sounds, no guarding or rigidity. SPINE: No scoliosis or deformity SKIN: No rashes CENTRAL NERVOUS SYSTEM: No focal deficits, tone is normal in all 4 extremities. EXTREMITIES: Dressing to left foot dry and intact. There is trace peripheral edema. No clubbing, no cyanosis. Peripheral pulses are intact. - Labs CBC & Chem 7: 03/01/21 03:33 03/01/21 03:33 Labs: Abnormal Lab Results - Last 24 Hours (Table) 02/28/21 02/28/21 02/28/21 Range/Units 11:23 16:52 20:35 WBC (3.8-10.6) k/uL RBC (3.80-5.40) m/uL Hgb (11.4-16.0) gm/dL Hct (34.0-46.0) % Plt Count (150-450) k/uL Neutrophils # (1.3-7.7) k/uL Lymphocytes # (1.0-4.8) k/uL Sodium (137-145) mmol/L BUN (7-17) mg/dL Creatinine (0.52-1.04) mg/dL Glucose (74-99) mg/dL POC Glucose (mg/dL) 170 H 337 H 461 H (75-99) mg/dL Calcium (8.4-10.2) mg/dL Total Protein (6.3-8.2) g/dL Albumin (3.5-5.0) g/dL 03/01/21 03/01/21 03/01/21 Range/Units 03:33 03:33 06:25 WBC 12.4 H (3.8-10.6) k/uL RBC 3.13 L (3.80-5.40) m/uL Hgb 8.5 L (11.4-16.0) gm/dL Hct 26.0 L (34.0-46.0) % Plt Count 123 L (150-450) k/uL Neutrophils # 11.9 H (1.3-7.7) k/uL Lymphocytes # 0.2 L (1.0-4.8) k/uL Sodium 131 L (137-145) mmol/L BUN 78 H (7-17) mg/dL Creatinine 2.16 H (0.52-1.04) mg/dL Glucose 343 H (74-99) mg/dL POC Glucose (mg/dL) 330 H (75-99) mg/dL Calcium 7.9 L (8.4-10.2) mg/dL Total Protein 4.7 L (6.3-8.2) g/dL Albumin 2.3 L (3.5-5.0) g/dL Assessment and Plan Assessment: 1 Acute hypoxemic respiratory failure secondary to fluid volume overload and bilateral effusions,transferred to the intensive care unit 02/19/2021 and curre ntly requiring BiPAP alternating with AirVo at 75% FiO2, Lasix drip. 2 Status post puncture wound to the left foot, which has become infected with methicillin sensitive staph aureus, amputated third toe. Currently on Zosyn 3 History of diabetes mellitus. 4 Non-anion gap metabolic acidosis, secondary to renal failure. 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 Now requiring hemodialysis 6 Mild hyperkalemia, improved. 7 Anemia. Plan: The patient was seen and evaluated by Dr. Corbett Chest x-ray and labs reviewed Continue the current treatment plan Titrate the FiO2 as tolerated Increase her activity as tolerated We will continue to follow and make further recommendations based on her clinical status Critical care time 35 minutes I, the cosigning physician, performed a history & physical examination of the patient. Lungs sounds with bilateral crackles in the posterior bases, diminished. Maintaining good O2 saturations in the 90s on alternating AirVo and BiPAP 12/5 and 65% FiO2. I discussed the assessment and plan of care with my nurse practitioner, Ramila Guillen. I attest to the above note as dictated by her.
--- NOTE | 2021-03-01 11:09 | P.PN ---
Subjective Progress Note Date: 03/01/21 Pt doing well today on Airvo, sitting in bed comfortably. Oxygen 93% on Airvo at 50LPM; CXR with slight improvement in aeration. Remains on lasix gtt with KVO fluids; UOP is increasing to 50cc/hr; Wt decreased to 90.2 kg. BP stable, HRs in NSR. WBC 12.4, stable, on solumedrol 60mg q6h and zosyn 3.375mg q12h. BS are uncontrolled 170-461 in last 24 hours; detemir 15U BID + aspart 3U AC-TID + aspart LD SSI. Objective - Vital Signs Vital signs: Vital Signs Temp 98 F 03/01/21 08:00 Pulse 80 03/01/21 10:00 Resp 23 03/01/21 10:00 BP 130/57 03/01/21 10:00 Pulse Ox 95 03/01/21 10:00 Intake & Output 02/28/21 03/01/21 03/01/21 18:59 06:59 18:59 Intake Total 1060 220 165 Output Total 3790 610 260 Balance -2730 -390 -95 Weight 89.2 kg 90.2 kg Intake: IV 210 120 40 0.9 110 120 40 Piperacillin-Tazobactam 3 100 .375 gm In Sodium Chloride 0.9% 100 ml @ 25 mls/hr IVPB Q12H ERIC Rx# :[id number] Intake, IV Titration 100 100 Amount Furosemide 100 mg In 100 100 Sodium Chloride 0.9% 90 ml @ 10 MG/HR 10 mls/hr IV .Q10H ERIC Rx#: [id number] Oral 750 125 Output: Urine 290 610 260 Hemodialysis 3500 Other: Voiding Method Indwelling Catheter Indwelling Catheter Indwelling Catheter - Exam Gen: awake, alert HEENT: normocephalic, atraumatic, good hearing acuity, moist mucous membranes Resp: impaired air exchange, in moderate distress from dyspnea, diffuse crackles in posterior lung hair CVS: good distal perfusion x 4, RRR, no murmurs GI: soft, NTTP, ND : no SPT, no CVAT, méndez catheter is present MSK: 2+pitting edema, no clubbing Neuro: non-focal, moving all extremities Psych: cooperative, euthymic mood - Labs CBC & Chem 7: 03/01/21 03:33 03/01/21 03:33 Labs: Abnormal Lab Results - Last 24 Hours (Table) 02/28/21 02/28/21 02/28/21 Range/Units 11:23 16:52 20:35 WBC (3.8-10.6) k/uL RBC (3.80-5.40) m/uL Hgb (11.4-16.0) gm/dL Hct (34.0-46.0) % Plt Count (150-450) k/uL Neutrophils # (1.3-7.7) k/uL Lymphocytes # (1.0-4.8) k/uL Sodium (137-145) mmol/L BUN (7-17) mg/dL Creatinine (0.52-1.04) mg/dL Glucose (74-99) mg/dL POC Glucose (mg/dL) 170 H 337 H 461 H (75-99) mg/dL Calcium (8.4-10.2) mg/dL Total Protein (6.3-8.2) g/dL Albumin (3.5-5.0) g/dL 03/01/21 03/01/21 03/01/21 Range/Units 03:33 03:33 06:25 WBC 12.4 H (3.8-10.6) k/uL RBC 3.13 L (3.80-5.40) m/uL Hgb 8.5 L (11.4-16.0) gm/dL Hct 26.0 L (34.0-46.0) % Plt Count 123 L (150-450) k/uL Neutrophils # 11.9 H (1.3-7.7) k/uL Lymphocytes # 0.2 L (1.0-4.8) k/uL Sodium 131 L (137-145) mmol/L BUN 78 H (7-17) mg/dL Creatinine 2.16 H (0.52-1.04) mg/dL Glucose 343 H (74-99) mg/dL POC Glucose (mg/dL) 330 H (75-99) mg/dL Calcium 7.9 L (8.4-10.2) mg/dL Total Protein 4.7 L (6.3-8.2) g/dL Albumin 2.3 L (3.5-5.0) g/dL Assessment and Plan Assessment: Acute renal failure due to 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 -I expect this is secondary to recurrent blood draws from prolonged hospital stay -Follow CBC -No signs of bleeding Wet gangrene of the left third toe, MSSA -Status post ray amputation -Vascular surgery recommendations -Infectious disease recommendations -Daptomycin completed #12 days -CK, LFTs level for toxicity monitoring -Now on Zosyn as above DM 2, hypoglycemia - levemir 15 U BID + aspart 3U AC-TID + aspart LD SSI -03/01: levemir 20U BID + aspart 6U AC-TID + aspart LD SSI - follow BS - A1C 8.1 Hypertension -Exacerbated by steroids -Continue with Norvasc -added hydralazine 25mg TID Vitamin B 6 deficiency - B complex replacement Hyperkalemia Hypocalcemia Metabolic acidosis Severe frontal headache, resolved Severe sepsis without septic shock
[2021-03-01 11:21] LABS: Glucose,Whole Blood 329 mg/dL (75-99)
--- NOTE | 2021-03-01 12:58 | PN ---
PROGRESS NOTE Patient is seen for followup for acute kidney injury and volume overload. Patient is maintained on daily ultrafiltration treatments along with Lasix drip. On examination today, she appears to be somewhat more comfortable. [id number] output at 4.4 L. Patient had 3.5 L with ultrafiltration and the rest with urine output. Her creatinine remains stable at about 2 to 2.1 mg/dL. EXAMINATION OF THE HEART: S1 and S2. EXAMINATION OF LUNGS: Bilateral breath sounds are heard. Decreased breath sounds at the bases. ABDOMEN: Soft, obese, nontender. LOWER EXTREMITIES: Examination of lower extremities shows 2+ edema bilaterally. SECRETARY EXAM: Grossly intact. Labs show sodium 131, potassium 3.7, BUN 78, creatinine 2.1, hemoglobin 8.5 g/dL. ASSESSMENT: 1. Acute kidney injury, post-infectious GN, status post kidney biopsy along with a component of acute tubular necrosis, currently nonoliguric with stable renal function, maintained on daily ultrafiltration treatments for volume overload. Continue with the Lasix drip for now. 2. Volume overload, slowly improving. Patient remains significantly volume-overloaded. I will continue with the Lasix drip along with the daily ultrafiltration. We can switch to IV push Lasix tomorrow. 3. Pneumonia, maintained on antibiotics. 4. Left foot cellulitis, status post third toe amputation for osteomyelitis and maintained on antibiotics. 5. Metabolic acidosis, now resolved. 6. Hyperkalemia, currently resolved. PLAN: Daily ultrafiltration treatments for now. Her dialysis catheter was changed this morning. I will continue with the Lasix drip as well. Monitor electrolytes. MMODL / IJN: [id number] /
[2021-03-01 16:49] LABS: Glucose,Whole Blood 153 mg/dL (75-99)
--- NOTE | 2021-03-01 17:36 | PCN ---
PROCEDURE NOTE PREOPERATIVE DIAGNOSIS: Acute chronic failure malfunction dialysis catheter. POSTOPERATIVE DIAGNOSIS: Acute chronic failure malfunction dialysis catheter. PROCEDURE PERFORMED: Placement of a 30 cm dialysis catheter right femoral approach. This patient had a dialysis catheter placed in the past. Right groin was prepped and drapes applied in the usual sterile manner. 1% lidocaine infiltrated. Guidewires were passed and we removed the old catheter and replaced 30 cm dialysis catheter on the top of the guidewire. The guidewire was removed. The catheter was flushed with saline and without any resistance and heparin was placed for hep-lock. Secured with 3-0 nylon. Dressing applied. Patient tolerated the procedure well. MMODL / IJN: [id number] /
[2021-03-01] MEDS ORDERED: INSULIN DETEMIR (LEVEMIR) 100 UNIT/ML SYR SQ SCH (21:00)
[2021-03-01 21:42] LABS: Glucose,Whole Blood 262 mg/dL (75-99)
--- NOTE | 2021-03-01 22:16 | PN ---
PROGRESS NOTE DATE OF SERVICE: 03/01/2021 REASON FOR FOLLOWUP: 1. Left foot wound and cellulitis. 2. Pneumonia. INTERVAL HISTORY: The patient is afebrile. She is breathing comfortably. Denies having any chest pain or any worsening cough. No nausea, no vomiting. No abdominal pain or pain to the left foot. PHYSICAL EXAMINATION: Blood pressure 123/81 with pulse of 74, temperature 98. She is 96% on high-flow oxygen. GENERAL DESCRIPTION: General description is a middle-aged female lying in bed in no distress. RESPIRATORY SYSTEM: Unlabored breathing. Decreased breath sounds at the bases. No wheeze. HEART: S1, S2. Regular rate and rhythm. ABDOMEN: Soft. No tenderness. LABS: Hemoglobin is 8.2, white count 12.4, BUN of 78, creatinine is 2.13. DIAGNOSTIC IMPRESSION AND PLAN: Patient with left foot wound and cellulitis, also with a component of pneumonia. Local care to continue with Santyl. Antibiotic in the form of Zosyn and monitor clinical course closely. MMODL / IJN: [id number] /
[2021-03-02] MEDS: HEPARIN SODIUM,PORCINE/PF 5,000 UNIT/0.5 ML SYRINGE SQ SCH ×3 (00:02→16:52)
[2021-03-02] MEDS: methylPREDNISolone SOD SUCCI 125 MG/2 ML VIAL IV SCH ×4 (00:02→21:53)
[2021-03-02] MEDS: ACETAMINOPHEN TAB 325 MG TAB PO PRN (00:02)
[2021-03-02 06:56] LABS: Glucose,Whole Blood 141 mg/dL (75-99)
[2021-03-02] MEDS: PIPERACILLIN-TAZOBACTAM 3.375 GM in SODIUM CHLORIDE 0.9% 100 ML IVPB SCH ×2 (06:59→17:03)
[2021-03-02] MEDS ORDERED: INSULIN DETEMIR (LEVEMIR) 100 UNIT/ML SYR SQ SCH (07:00)
[2021-03-02] MEDS: INSULIN ASPART (NovoLOG) 100 UNIT/ML VIAL SQ SCH ×7 (07:00→22:08)
[2021-03-02] MEDS: FUROSEMIDE 100 MG in SODIUM CHLORIDE 0.9% 90 ML IV SCH (08:12)
[2021-03-02] MEDS: CYANOCOBALAMIN 500 MCG TAB PO SCH (08:12)
[2021-03-02] MEDS: HYDROCORTISONE 1% CREAM 454 GM JAR TOPICAL SCH ×3 (08:13→22:03)
[2021-03-02] MEDS: COLLAGENASE 250 UNIT/GM OINTMENT 30 GM TUBE TOPICAL SCH (08:13)
[2021-03-02] MEDS: PREGABALIN 75 MG CAP PO SCH ×2 (08:13→22:02)
[2021-03-02] MEDS: DULoxetine HCL 30 MG CAPSULE.DR PO SCH (08:13)
[2021-03-02] MEDS: FOLIC ACID 1 MG TAB PO SCH (08:13)
[2021-03-02] MEDS: FAMOTIDINE 20 MG TAB PO SCH (08:13)
[2021-03-02 09:00] LABS: Basophils % (A) 0 %; Eosinophils % (A) 0 %; HCT 28.2 % (34.0-46.0); HGB 9.2 gm/dL (11.4-16.0); Lymphocytes # (A) 0.2 k/uL (1.0-4.8); Lymphocytes % (A) 2 %; MCH 26.9 pg (25.0-35.0); MCHC 32.6 g/dL (31.0-37.0); MCV 82.5 fL (80.0-100.0); Monocytes # (A) 0.3 k/uL (0-1.0); Monocytes % (A) 2 %; Neutrophils # (A) 13.6 k/uL (1.3-7.7); Neutrophils % (A) 96 %; Platelet Count 136 k/uL (150-450); RBC 3.41 m/uL (3.80-5.40); RDW 13.8 % (11.5-15.5); WBC 14.1 k/uL (3.8-10.6)
[2021-03-02 09:17] LABS: Albumin 2.5 g/dL (3.5-5.0); Calcium 8.1 mg/dL (8.4-10.2); Potassium 3.6 mmol/L (3.5-5.1); Total Bilirubin 0.4 mg/dL (0.2-1.3); Total Protein 5.2 g/dL (6.3-8.2)
--- NOTE | 2021-03-02 10:53 | P.PN ---
Subjective Progress Note Date: 03/02/21 61-year-old who presented to the emergency department on January 31, with headache, possible seizure, and also possible infection to the left foot. The patient had apparently not been feeling well for about 3-4 days prior to admission. She had a right-sided occipital headache. In addition, she apparently stepped on a stick in the yard, and developed some redness and drainage from the left foot. In addition, the patient apparently had a low- grade fever. The patient does have a history of diabetes mellitus. She recently moved to [place], from [place]. She has no doctor in this area. Anyway, over the last few days, she's been complaining of shortness of breath. Her oxygen requirements have been going up, and a chest x-ray showed bilateral infiltrates and possibly effusions, as well as a computed tomography scan showing bilateral pleural effusions, and bibasilar infiltrates and atelectasis, left greater than right. For that reason, we were consulted. The patient was on AIRVO at 45 L/m with an FiO2 of 56%. She did not appear to be particularly short of breath. The patient did state that since being on the AIRVO, she has felt better. She does have a cough, which is nonproductive. She denies any chest pain or chest discomfort. She also denies any fever or chills. Her chest x-ray and CAT scan are reviewed. White count 10.5, hemoglobin 9.9, hematocrit 30.8, and platelet count 411,000. Sed rate is 99. Sodium 134, potassium 5.4, chlorides 107, CO2 16, anion gap 11, BUN 88, and creatinine 3.31. Calcium 7.9, phosphorus 7.2. Venous Dopplers of the bilateral lower extremities were negative for DVT. A perfusion lung scan was low probability for PE. A chest x- ray done on the fifth, showed bilateral basilar infiltrates, left greater than right, with more dense consolidation in the left lower lobe. CAT scan of the chest showed bilateral pleural effusions, with extensive bilateral pneumonia and lower lobe atelectasis. COVID testing was negative, and the pro-calcitonin level was a bit elevated at 0.36. The patient is seen today 02/14/2021 in follow-up on the regular medical floor. She is currently sitting up in a chair at the bedside. Awake, alert in no acute distress. She states she is breathing a little bit better today compared to yesterday. She has been converted from the AirVo high flow oxygen back to 8 L high flow nasal cannula. O2 saturations at 95%. She's afebrile. Hemodynamically stable. Left foot wound cultures positive for MSSA. Follow-up blood cultures revealing no growth. Ultrasound of the chest does reveal a 7.8 cm pocket on the right and a 10.4 cm pocket on the left. Marked for possible thoracentesis. Echocardiogram revealed preserved left ventricular systolic function with ejection fraction 55%. No valvular heart disease. White count 17.4. Hemoglobin 9.4. Sodium 132. Potassium 5.1. Bicarb 20.5. BUN 97. Creatinine 2.9. GFR 17. Glucose 239. Being worked up for possible vasculitis, possible interstitial nephritis. ANCA pending. Possible kidney biopsy today. Remains on D5W with 3 A of bicarb at 50 MLS per hour along with oral bicarb. Antibiotics in the form of Vibramycin, daptomycin, Zosyn. This patient was last seen by us on 02/14/2021, however the patient had so many other issues being addressed by many other consultants, and her main issue was mostly related to her cellulitis, and acute kidney injury. Dr. Corbett has signed off the case on 02/14, and last night I was called about this patient developing worsening shortness of breath, she was evaluated by the rapid response team, and she was clearly in pulmonary edema. Patient was placed on BiPAP, and I recommended immediate transfer to the ICU. I saw this patient today in the ICU, she is on BiPAP, and she is definitely in pulmonary edema. Patient is on IPAP of 10 and EPAP of 5 and FiO2 of 60%, and she is in moderate respiratory distress. She is receiving antibiotics in the form of daptomycin for her cellulitis of the foot, and she received earlier a Lasix dose of 60 mg IV push, and I recommended a Lasix drip at 10 mg per hour. Discussed her condition with her boyfriend at bedside, and made aware that the patient's condition is quite serious, and the patient may end up requiring intubation and mechanical ventilation if she doesn't improve much with Lasix drip. Labs today showed leukocytosis with WBC of 23.2 hemoglobin 9.5. BUN is up to 120 creatinine is 2.16. The patient is seen today 02/21/2021 in follow-up in the intensive care unit. She is currently resting fairly comfortably in bed. Awake and alert. She is maintained on BiPAP 10/5 and 70% FiO2 with O2 saturation of 93%. She is currently on a Lasix drip at 10 mg per hour. Echocardiogram revealed preserved left ventricular systolic function with ejection fraction of 55%. Her chest x- ray is showing less fluid volume overload. She has improving edema of the lower extremities. She is diuresing well. Currently in a -4.4 L. Remains in sinus rhythm. Cultures of the third left toe were positive for MSSA. Blood cultures reveal no growth. White count 20.3. Hemoglobin 9.6. Sodium 141. Potassium 4.7. BUN 116. Creatinine 2.24. ProBNP 3280. She remains on daptomycin. Heparin for DVT prophylaxis. The patient is seen today 02/22/2021 in follow-up in the intensive care unit. She remains awake and alert. She is continued on BiPAP currently 10/5 and 90% FiO2 to maintain O2 saturations in the 90s. She remains on a Lasix drip at 10 mg per hour. She is in -8 L fluid balance in the past 48 hours. She remains on Solu-Medrol 60 mg every 8 hours. She is continued on antibiotics in the form of daptomycin. Chest x-ray continues to show diffuse bilateral airspace disease with bilateral pleural effusions. Pulmonary edema versus ARDS versus pneumonia. Follow-up blood cultures revealed no growth. White count 22.6. Hemoglobin 9.2. Sodium 142. Potassium 4.3. Creatinine 2.53. Valentin virus not detected. Heparin for DVT prophylaxis. The patient is seen today 02/28/2021 in follow-up in the intensive care unit. She is currently sitting up in bed. Receiving hemodialysis. She did receive hemodialysis yesterday with 3.5 L of fluid removed. She is still on AirVo high flow oxygen at 50 L/m at 65% FiO2. She has been alternating with BiPAP 12/5 and 65% FiO2 as well. Blood cultures revealed no growth. White count 14.5. Hemoglobin 9.2. Platelet count 126. Sodium 133. Potassium 3.8. Creatinine 1.95. Glucose 217. She remains on a Lasix drip at 10 mg per hour. Antibiotics in the form of Zosyn. Heparin for DVT prophylaxis. She remains on IV Solu- Medrol. The patient is seen today 03/01/2021 in follow-up in the intensive care unit. He is currently resting fairly comfortably in bed. She received dialysis again yesterday with 3.5 L removed. She remains on AirVo high flow oxygen at 50 L/m at 76% FiO2. She remains on a Lasix drip at 10 mg per hour. 0.9 normal setting at KVO. His x-ray continues to show diffuse bilateral airspace disease with some slight improvement. Right-sided PICC line remains in place. White count 12.4. Hemoglobin 8.5. Platelets 123. Lymphocytes 0.2. Sodium 131. Potassium 3.7. Creatinine 2.13. Glucose 343. She remains on Zosyn. Bronchodilators. IV Solu-Medrol. Heparin for DVT prophylaxis. The patient is seen today 03/02/2021 in follow-up in the intensive care unit. She is currently sitting up in bed. Awake and alert in no acute distress. She received hemodialysis again yesterday with another 3 L removed. She is down to 45 L/m and 70% FiO2 on the AirVo high flow oxygen. She did not require BiPAP last night. She remains on Lasix at 10 mg per hour. 0.9 normal saline at KVO. White count 14.1. Hemoglobin 9.2. Platelets 136. Sodium 135. Potassium 3.6. Creatinine 2.00. Glucose 287. She remains on bronchodilators, IV Solu-Medrol. Antibiotics in the form of Zosyn. She did have her hemodialysis catheter replaced yesterday. Objective - Vital Signs Vital signs: Vital Signs Temp 97.5 F L 03/02/21 08:00 Pulse 80 03/02/21 10:00 Resp 19 03/02/21 10:00 BP 133/61 03/02/21 10:00 Pulse Ox 95 03/02/21 10:00 Intake & Output 03/01/21 03/02/21 03/02/21 18:59 06:59 18:59 Intake Total 582.667 730 280 Output Total 565 565 225 Balance 17.667 165 55 Weight 89.5 kg Intake: IV 120 330 80 0.9 120 120 40 Furosemide 100 mg In 110 40 Sodium Chloride 0.9% 90 ml @ 10 MG/HR 10 mls/hr IV .Q10H ERIC Rx#: [id number] Piperacillin-Tazobactam 3 100 .375 gm In Sodium Chloride 0.9% 100 ml @ 25 mls/hr IVPB Q12H ERIC Rx# :[id number] Intake, IV Titration 87.667 100 100 Amount Furosemide 100 mg In 87.667 100 100 Sodium Chloride 0.9% 90 ml @ 10 MG/HR 10 mls/hr IV .Q10H ERIC Rx#: [id number] Oral 375 300 100 Output: Urine 565 565 225 Other: Voiding Method Indwelling Catheter Indwelling Catheter Indwelling Catheter - Exam GENERAL EXAM: Alert, very pleasant 61-year-old female patient, on BiPAP 12/5 and 65% FiO2 alternating with AirVo at 45 L and 70% FiO2, fairly comfortable in no apparent distress. HEAD: Normocephalic. EYES: Normal reaction of pupils, equal size. NOSE: Clear with pink turbinates. THROAT: No erythema or exudates. NECK: No masses, no JVD. CHEST: No chest wall deformity. LUNGS: Equal air entry with crackles in the bilateral bases, diminished CVS: S1 and S2 normal with no audible murmur, regular rhythm. ABDOMEN: No hepatosplenomegaly, normal bowel sounds, no guarding or rigidity. SPINE: No scoliosis or deformity SKIN: No rashes CENTRAL NERVOUS SYSTEM: No focal deficits, tone is normal in all 4 extremities. EXTREMITIES: Dressing to left foot dry and intact. Right groin hemodialysis catheter in place. There is trace peripheral edema. No clubbing, no cyanosis. Peripheral pulses are intact. - Labs CBC & Chem 7: 03/02/21 08:33 03/02/21 08:33 Labs: Abnormal Lab Results - Last 24 Hours (Table) 03/01/21 03/01/21 03/01/21 Range/Units 11:20 16:46 21:39 WBC (3.8-10.6) k/uL RBC (3.80-5.40) m/uL Hgb (11.4-16.0) gm/dL Hct (34.0-46.0) % Plt Count (150-450) k/uL Neutrophils # (1.3-7.7) k/uL Lymphocytes # (1.0-4.8) k/uL Sodium (137-145) mmol/L BUN (7-17) mg/dL Creatinine (0.52-1.04) mg/dL Glucose (74-99) mg/dL POC Glucose (mg/dL) 329 H 153 H 262 H (75-99) mg/dL Calcium (8.4-10.2) mg/dL Total Protein (6.3-8.2) g/dL Albumin (3.5-5.0) g/dL 03/02/21 03/02/21 03/02/21 Range/Units 06:54 08:33 08:33 WBC 14.1 H (3.8-10.6) k/uL RBC 3.41 L (3.80-5.40) m/uL Hgb 9.2 L (11.4-16.0) gm/dL Hct 28.2 L (34.0-46.0) % Plt Count 136 L (150-450) k/uL Neutrophils # 13.6 H (1.3-7.7) k/uL Lymphocytes # 0.2 L (1.0-4.8) k/uL Sodium 135 L (137-145) mmol/L BUN 69 H (7-17) mg/dL Creatinine 2.00 H (0.52-1.04) mg/dL Glucose 287 H (74-99) mg/dL POC Glucose (mg/dL) 141 H (75-99) mg/dL Calcium 8.1 L (8.4-10.2) mg/dL Total Protein 5.2 L (6.3-8.2) g/dL Albumin 2.5 L (3.5-5.0) g/dL Assessment and Plan Assessment: 1 Acute hypoxemic respiratory failure secondary to fluid volume overload and bilateral effusions,transferred to the intensive care unit 02/19/2021 and currently on AirVo at 45 L/min and 70% FiO2, Lasix drip. 2 Status post puncture wound to the left foot, which has become infected with methicillin sensitive staph aureus, amputated third toe. Currently on Zosyn 3 History of diabetes mellitus. 4 Non-anion gap metabolic acidosis, secondary to renal failure. 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 Now requiring hemodialysis 6 Mild hyperkalemia, improved. 7 Anemia. Plan: The patient was seen and evaluated by Dr. Corbett Improving from the pulmonary standpoint Hemodialysis removed another 3 L yesterday Continue the current treatment plan Titrate the FiO2 as tolerated Increase her activity as tolerated We will continue to follow and make further recommendations based on her clinical status Critical care time 36 minutes I, the cosigning physician, performed a history & physical examination of the patient. Lungs sounds with bilateral crackles in the posterior bases, diminished. Maintaining good O2 saturations in the 90s on AirVo 45L/min and 70% FiO2.. I discussed the assessment and plan of care with my nurse practitioner, Ramila Guillen. I attest to the above note as dictated by her.
--- NOTE | 2021-03-02 11:48 | PN ---
PROGRESS NOTE Patient is seen for followup for acute kidney injury secondary to post-infectious GN, status post kidney biopsy. Patient also has severe volume overload, for which she is maintained on daily ultrafiltration. This morning she states she is feeling better. FiO2 is about the same. The patient continues to be on Lasix drip with good urine output. [id number] urine output is documented at about 1.1 L. There are plans to dialyze her again with ultrafiltration only. PHYSICAL EXAMINATION: On examination today, blood pressure was 133/61, heart rate 80 per minute. Patient is afebrile. EXAMINATION OF THE HEART: S1 and S2. EXAMINATION OF LUNGS: Decreased breath sounds at the bases. ABDOMEN: Soft, nontender. LOWER EXTREMITIES: Examination of lower extremities shows edema 2+ bilaterally. [employer] EXAM: Grossly intact. LABS: Sodium 135, potassium 3.6, BUN 69, creatinine 2.0, hemoglobin 9.2 g/dL. ASSESSMENT: 1. Acute kidney injury secondary to post-infectious GN, status post kidney biopsy, maintained on daily ultrafiltration for volume overload. Serum creatinine is staying stable around 2 mg/dL. 2. Volume overload, slowly improving. I will discontinue the Lasix drip and switch to IV push Lasix. Continue with daily ultrafiltration for now. 3. Acute hypoxic respiratory failure secondary to fluid overload, possible pneumonia, maintained on antibiotics. 4. Left foot cellulitis with wound, status post left third toe amputation, maintained on antibiotics. PLAN: Continue with daily ultrafiltration. Switch Lasix drip to IV push Lasix and continue to monitor electrolytes. MMODL / IJN: [id number] /
[2021-03-02] MEDS: hydrALAZINE HCL 25 MG TAB PO SCH ×3 (11:51→22:02)
[2021-03-02 11:55] LABS: Glucose,Whole Blood 275 mg/dL (75-99)
--- NOTE | 2021-03-02 12:16 | P.PN ---
Subjective Progress Note Date: 03/02/21 Pt doing well today on Airvo, sitting in bed comfortably. Oxygen 97% on Airvo at 45LPM; CXR from 03/01 with slight improvement in aeration. Remains on lasix gtt with KVO fluids; UOP is increasing to 75cc/hr; Wt decreased to 89.5 kg. BP stable, HRs in NSR. WBC 14.1, stable, on solumedrol 60mg q6h and zosyn 3.375mg q12h. BS are improving 150-275 in last 24 hours; detemir 20U BID + aspart 6U AC-TID + aspart LD SSI. Objective - Vital Signs Vital signs: Vital Signs Temp 97.5 F L 03/02/21 08:00 Pulse 76 03/02/21 12:00 Resp 13 03/02/21 12:00 BP 142/64 03/02/21 12:00 Pulse Ox 97 03/02/21 12:00 Intake & Output 03/01/21 03/02/21 03/02/21 18:59 06:59 18:59 Intake Total 582.667 730 300 Output Total 565 565 300 Balance 17.667 165 0 Weight 89.5 kg Intake: IV 120 330 100 0.9 120 120 50 Furosemide 100 mg In 110 50 Sodium Chloride 0.9% 90 ml @ 10 MG/HR 10 mls/hr IV .Q10H ERIC Rx#: [id number] Piperacillin-Tazobactam 3 100 .375 gm In Sodium Chloride 0.9% 100 ml @ 25 mls/hr IVPB Q12H ERIC Rx# :[id number] Intake, IV Titration 87.667 100 100 Amount Furosemide 100 mg In 87.667 100 100 Sodium Chloride 0.9% 90 ml @ 10 MG/HR 10 mls/hr IV .Q10H ERIC Rx#: [id number] Oral 375 300 100 Output: Urine 565 565 300 Other: Voiding Method Indwelling Catheter Indwelling Catheter Indwelling Catheter - Exam Gen: awake, alert HEENT: normocephalic, atraumatic, good hearing acuity, moist mucous membranes Resp: impaired air exchange, in moderate distress from dyspnea, diffuse crackles in posterior lung hair CVS: good distal perfusion x 4, RRR, no murmurs GI: soft, NTTP, ND : no SPT, no CVAT, méndez catheter is present MSK: 2+pitting edema, no clubbing Neuro: non-focal, moving all extremities Psych: cooperative, euthymic mood - Labs CBC & Chem 7: 03/02/21 08:33 03/02/21 08:33 Labs: Abnormal Lab Results - Last 24 Hours (Table) 03/01/21 03/01/21 03/02/21 Range/Units 16:46 21:39 06:54 WBC (3.8-10.6) k/uL RBC (3.80-5.40) m/uL Hgb (11.4-16.0) gm/dL Hct (34.0-46.0) % Plt Count (150-450) k/uL Neutrophils # (1.3-7.7) k/uL Lymphocytes # (1.0-4.8) k/uL Sodium (137-145) mmol/L BUN (7-17) mg/dL Creatinine (0.52-1.04) mg/dL Glucose (74-99) mg/dL POC Glucose (mg/dL) 153 H 262 H 141 H (75-99) mg/dL Calcium (8.4-10.2) mg/dL Total Protein (6.3-8.2) g/dL Albumin (3.5-5.0) g/dL 03/02/21 03/02/21 03/02/21 Range/Units 08:33 08:33 11:53 WBC 14.1 H (3.8-10.6) k/uL RBC 3.41 L (3.80-5.40) m/uL Hgb 9.2 L (11.4-16.0) gm/dL Hct 28.2 L (34.0-46.0) % Plt Count 136 L (150-450) k/uL Neutrophils # 13.6 H (1.3-7.7) k/uL Lymphocytes # 0.2 L (1.0-4.8) k/uL Sodium 135 L (137-145) mmol/L BUN 69 H (7-17) mg/dL Creatinine 2.00 H (0.52-1.04) mg/dL Glucose 287 H (74-99) mg/dL POC Glucose (mg/dL) 275 H (75-99) mg/dL Calcium 8.1 L (8.4-10.2) mg/dL Total Protein 5.2 L (6.3-8.2) g/dL Albumin 2.5 L (3.5-5.0) g/dL Assessment and Plan Assessment: Acute renal failure due to 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 -I expect this is secondary to recurrent blood draws from prolonged hospital stay -Follow CBC -No signs of bleeding Wet gangrene of the left third toe, MSSA -Status post ray amputation -Vascular surgery recommendations -Infectious disease recommendations -Daptomycin completed #12 days -CK, LFTs level for toxicity monitoring -Now on Zosyn as above DM 2, hypoglycemia - levemir 15 U BID + aspart 3U AC-TID + aspart LD SSI -03/01: levemir 20U BID + aspart 6U AC-TID + aspart LD SSI -03/02: levemir 25U daily/levemir 30U qHS + aspart 6U AC-TID + aspart LD SSI - follow BS - A1C 8.1 Hypertension -Exacerbated by steroids -Continue with Norvasc -added hydralazine 25mg TID Vitamin B 6 deficiency - B complex replacement Hyperkalemia Hypocalcemia Metabolic acidosis Severe frontal headache, resolved Severe sepsis without septic shock
[2021-03-02 12:23] LABS: Albumin 2.57 g/dL (3.80-4.90); Gamma Globulin 1.24 g/dL (0.70-1.50)
--- NOTE | 2021-03-02 15:51 | PN ---
PROGRESS NOTE DATE OF SERVICE: 03/02/2021 REASON FOR FOLLOWUP: Left foot abscess, cellulitis and pneumonia. INTERVAL HISTORY: The patient is afebrile. The patient is breathing comfortably. She is still on high- flow oxygen. Denies any chest pain or any worsening cough. No abdominal pain, no diarrhea. PHYSICAL EXAMINATION: Blood pressure 130/66, pulse of 76, temperature is 97.5. She is 96% on 70% FiO2. General description is a middle-aged female up in the bed in no distress. Respiratory system: Unlabored breathing, decreased breath sounds at the base. No wheeze. Heart S1, S2. Regular rate and rhythm. Abdomen soft, no tenderness. Left foot is currently dressed. No obvious drainage on the dressing. LABS: Hemoglobin 9.8, white count 8.9, BUN of 69, creatinine is 2.0. DIAGNOSTIC IMPRESSION AND PLAN: Patient with left foot abscess and cellulitis status post amputation of left third toe, subsequently developing renal failure and a component of pneumonia. Patient is covered with Zosyn. Will continue local wound care with Santyl and monitor clinical course closely. MMODL / IJN: [id number] /
[2021-03-02 16:33] LABS: Glucose,Whole Blood 151 mg/dL (75-99)
[2021-03-02] MEDS: FUROSEMIDE 10 MG/ML 10 ML VIAL IV SCH (16:52)
[2021-03-02] MEDS: INSULIN DETEMIR (LEVEMIR) 100 UNIT/ML SYR SQ SCH (22:02)
[2021-03-02 22:07] LABS: Glucose,Whole Blood 251 mg/dL (75-99)
[2021-03-03] MEDS: FUROSEMIDE 10 MG/ML 10 ML VIAL IV SCH ×4 (00:40→23:35)
[2021-03-03] MEDS: methylPREDNISolone SOD SUCCI 125 MG/2 ML VIAL IV SCH ×5 (00:40→23:35)
[2021-03-03] MEDS: HEPARIN SODIUM,PORCINE/PF 5,000 UNIT/0.5 ML SYRINGE SQ SCH ×4 (00:40→23:36)
[2021-03-03] MEDS: PIPERACILLIN-TAZOBACTAM 3.375 GM in SODIUM CHLORIDE 0.9% 100 ML IVPB SCH ×2 (03:47→18:43)
[2021-03-03 07:04] LABS: Glucose,Whole Blood 110 mg/dL (75-99)
[2021-03-03] MEDS: INSULIN ASPART (NovoLOG) 100 UNIT/ML VIAL SQ SCH ×7 (07:10→21:44)
[2021-03-03] MEDS: INSULIN DETEMIR (LEVEMIR) 100 UNIT/ML SYR SQ SCH ×2 (07:15→21:43)
--- NOTE | 2021-03-03 08:32 | XR ---
EXAMINATION TYPE: XR chest 1V portable DATE OF EXAM: 03/03/2021 COMPARISON: Chest x-ray dated 03/01/2021 HISTORY: ARDS, abnormal chest x-ray TECHNIQUE: Single frontal view of the chest is obtained. FINDINGS: There may be some slight interval improved aeration in the upper lobes. Right-sided PICC l ine shows the distal tip in the right atrium. Cardiac mediastinal silhouette is stable. No pneumothor ax or pleural effusion. There are overlying artifacts. IMPRESSION: There may be some slight interval improvement in aeration.
[2021-03-03] MEDS: DULoxetine HCL 30 MG CAPSULE.DR PO SCH (10:15)
[2021-03-03] MEDS: PREGABALIN 75 MG CAP PO SCH ×2 (10:16→21:43)
[2021-03-03] MEDS: CYANOCOBALAMIN 500 MCG TAB PO SCH (10:16)
[2021-03-03] MEDS: FOLIC ACID 1 MG TAB PO SCH (10:16)
[2021-03-03] MEDS: HYDROCORTISONE 1% CREAM 454 GM JAR TOPICAL SCH ×3 (10:16→21:44)
[2021-03-03] MEDS: FAMOTIDINE 20 MG TAB PO SCH (10:16)
[2021-03-03] MEDS: COLLAGENASE 250 UNIT/GM OINTMENT 30 GM TUBE TOPICAL SCH (10:17)
[2021-03-03 11:14] LABS: Glucose,Whole Blood 265 mg/dL (75-99)
--- NOTE | 2021-03-03 11:27 | P.PN ---
Subjective Progress Note Date: 03/03/21 61-year-old who presented to the emergency department on January 31, with headache, possible seizure, and also possible infection to the left foot. The patient had apparently not been feeling well for about 3-4 days prior to admission. She had a right-sided occipital headache. In addition, she apparently stepped on a stick in the yard, and developed some redness and drainage from the left foot. In addition, the patient apparently had a low- grade fever. The patient does have a history of diabetes mellitus. She recently moved to [place], from [place]. She has no doctor in this area. Anyway, over the last few days, she's been complaining of shortness of breath. Her oxygen requirements have been going up, and a chest x-ray showed bilateral infiltrates and possibly effusions, as well as a computed tomography scan showing bilateral pleural effusions, and bibasilar infiltrates and atelectasis, left greater than right. For that reason, we were consulted. The patient was on AIRVO at 45 L/m with an FiO2 of 56%. She did not appear to be particularly short of breath. The patient did state that since being on the AIRVO, she has felt better. She does have a cough, which is nonproductive. She denies any chest pain or chest discomfort. She also denies any fever or chills. Her chest x-ray and CAT scan are reviewed. White count 10.5, hemoglobin 9.9, hematocrit 30.8, and platelet count 411,000. Sed rate is 99. Sodium 134, potassium 5.4, chlorides 107, CO2 16, anion gap 11, BUN 88, and creatinine 3.31. Calcium 7.9, phosphorus 7.2. Venous Dopplers of the bilateral lower extremities were negative for DVT. A perfusion lung scan was low probability for PE. A chest x- ray done on the fifth, showed bilateral basilar infiltrates, left greater than right, with more dense consolidation in the left lower lobe. CAT scan of the chest showed bilateral pleural effusions, with extensive bilateral pneumonia and lower lobe atelectasis. COVID testing was negative, and the pro-calcitonin level was a bit elevated at 0.36. The patient is seen today 02/14/2021 in follow-up on the regular medical floor. She is currently sitting up in a chair at the bedside. Awake, alert in no acute distress. She states she is breathing a little bit better today compared to yesterday. She has been converted from the AirVo high flow oxygen back to 8 L high flow nasal cannula. O2 saturations at 95%. She's afebrile. Hemodynamically stable. Left foot wound cultures positive for MSSA. Follow-up blood cultures revealing no growth. Ultrasound of the chest does reveal a 7.8 cm pocket on the right and a 10.4 cm pocket on the left. Marked for possible thoracentesis. Echocardiogram revealed preserved left ventricular systolic function with ejection fraction 55%. No valvular heart disease. White count 17.4. Hemoglobin 9.4. Sodium 132. Potassium 5.1. Bicarb 20.5. BUN 97. Creatinine 2.9. GFR 17. Glucose 239. Being worked up for possible vasculitis, possible interstitial nephritis. ANCA pending. Possible kidney biopsy today. Remains on D5W with 3 A of bicarb at 50 MLS per hour along with oral bicarb. Antibiotics in the form of Vibramycin, daptomycin, Zosyn. This patient was last seen by us on 02/14/2021, however the patient had so many other issues being addressed by many other consultants, and her main issue was mostly related to her cellulitis, and acute kidney injury. Dr. Corbett has signed off the case on 02/14, and last night I was called about this patient developing worsening shortness of breath, she was evaluated by the rapid response team, and she was clearly in pulmonary edema. Patient was placed on BiPAP, and I recommended immediate transfer to the ICU. I saw this patient today in the ICU, she is on BiPAP, and she is definitely in pulmonary edema. Patient is on IPAP of 10 and EPAP of 5 and FiO2 of 60%, and she is in moderate respiratory distress. She is receiving antibiotics in the form of daptomycin for her cellulitis of the foot, and she received earlier a Lasix dose of 60 mg IV push, and I recommended a Lasix drip at 10 mg per hour. Discussed her condition with her boyfriend at bedside, and made aware that the patient's condition is quite serious, and the patient may end up requiring intubation and mechanical ventilation if she doesn't improve much with Lasix drip. Labs today showed leukocytosis with WBC of 23.2 hemoglobin 9.5. BUN is up to 120 creatinine is 2.16. The patient is seen today 02/21/2021 in follow-up in the intensive care unit. She is currently resting fairly comfortably in bed. Awake and alert. She is maintained on BiPAP 10/5 and 70% FiO2 with O2 saturation of 93%. She is currently on a Lasix drip at 10 mg per hour. Echocardiogram revealed preserved left ventricular systolic function with ejection fraction of 55%. Her chest x- ray is showing less fluid volume overload. She has improving edema of the lower extremities. She is diuresing well. Currently in a -4.4 L. Remains in sinus rhythm. Cultures of the third left toe were positive for MSSA. Blood cultures reveal no growth. White count 20.3. Hemoglobin 9.6. Sodium 141. Potassium 4.7. BUN 116. Creatinine 2.24. ProBNP 3280. She remains on daptomycin. Heparin for DVT prophylaxis. The patient is seen today 02/22/2021 in follow-up in the intensive care unit. She remains awake and alert. She is continued on BiPAP currently 10/5 and 90% FiO2 to maintain O2 saturations in the 90s. She remains on a Lasix drip at 10 mg per hour. She is in -8 L fluid balance in the past 48 hours. She remains on Solu-Medrol 60 mg every 8 hours. She is continued on antibiotics in the form of daptomycin. Chest x-ray continues to show diffuse bilateral airspace disease with bilateral pleural effusions. Pulmonary edema versus ARDS versus pneumonia. Follow-up blood cultures revealed no growth. White count 22.6. Hemoglobin 9.2. Sodium 142. Potassium 4.3. Creatinine 2.53. Valentin virus not detected. Heparin for DVT prophylaxis. The patient is seen today 02/28/2021 in follow-up in the intensive care unit. She is currently sitting up in bed. Receiving hemodialysis. She did receive hemodialysis yesterday with 3.5 L of fluid removed. She is still on AirVo high flow oxygen at 50 L/m at 65% FiO2. She has been alternating with BiPAP 12/5 and 65% FiO2 as well. Blood cultures revealed no growth. White count 14.5. Hemoglobin 9.2. Platelet count 126. Sodium 133. Potassium 3.8. Creatinine 1.95. Glucose 217. She remains on a Lasix drip at 10 mg per hour. Antibiotics in the form of Zosyn. Heparin for DVT prophylaxis. She remains on IV Solu- Medrol. The patient is seen today 03/01/2021 in follow-up in the intensive care unit. He is currently resting fairly comfortably in bed. She received dialysis again yesterday with 3.5 L removed. She remains on AirVo high flow oxygen at 50 L/m at 76% FiO2. She remains on a Lasix drip at 10 mg per hour. 0.9 normal setting at KVO. His x-ray continues to show diffuse bilateral airspace disease with some slight improvement. Right-sided PICC line remains in place. White count 12.4. Hemoglobin 8.5. Platelets 123. Lymphocytes 0.2. Sodium 131. Potassium 3.7. Creatinine 2.13. Glucose 343. She remains on Zosyn. Bronchodilators. IV Solu-Medrol. Heparin for DVT prophylaxis. The patient is seen today 03/02/2021 in follow-up in the intensive care unit. She is currently sitting up in bed. Awake and alert in no acute distress. She received hemodialysis again yesterday with another 3 L removed. She is down to 45 L/m and 70% FiO2 on the AirVo high flow oxygen. She did not require BiPAP last night. She remains on Lasix at 10 mg per hour. 0.9 normal saline at KVO. White count 14.1. Hemoglobin 9.2. Platelets 136. Sodium 135. Potassium 3.6. Creatinine 2.00. Glucose 287. She remains on bronchodilators, IV Solu-Medrol. Antibiotics in the form of Zosyn. She did have her hemodialysis catheter replaced yesterday. The patient is seen today 03/03/2021 in follow-up in the care unit. She is awake and alert in no acute distress. Currently sitting up in bed. Doing better today compared to yesterday. Her Lasix drip is off. She has 0.9 normal saline at 10 mL an hour. She is currently on the AirVo high flow oxygen at 35 L/m 60% of FiO2. She received hemodialysis again yesterday with 3 L removed. Chest x-ray showing slight improvement in the bilateral patchy opacities. Glucose 265. If she remains on Lasix 60 mg IV every 8 hours. Heparin for DVT prophylaxis. IV Solu-Medrol. Antibiotics in the form of Zosyn. Objective - Vital Signs Vital signs: Vital Signs Temp 98.9 F 03/03/21 08:00 Pulse 79 03/03/21 11:00 Resp 27 H 03/03/21 11:00 BP 130/55 03/03/21 11:00 Pulse Ox 96 03/03/21 11:00 Intake & Output 03/02/21 03/03/21 03/03/21 18:59 06:59 18:59 Intake Total 670 395 175 Output Total 560 3480 270 Balance 110 -3085 -95 Weight 89.5 kg 87.5 kg Intake: IV 170 195 175 0.9 120 120 50 Furosemide 100 mg In 50 Sodium Chloride 0.9% 90 ml @ 10 MG/HR 10 mls/hr IV .Q10H [facility] Rx#: [id number] Piperacillin-Tazobactam 3 75 125 .375 gm In Sodium Chloride 0.9% 100 ml @ 25 mls/hr IVPB Q12H [facility] Rx# :[id number] Intake, IV Titration 100 Amount Furosemide 100 mg In 100 Sodium Chloride 0.9% 90 ml @ 10 MG/HR 10 mls/hr IV .Q10H [facility] Rx#: [id number] Oral 400 Tube Feeding 200 Output: Urine 560 480 270 Hemodialysis 3000 Other: Voiding Method Indwelling Catheter Indwelling Catheter Indwelling Catheter - Exam GENERAL EXAM: Alert, very pleasant 61-year-old female patient, on AirVo at 35 L and 60% FiO2, fairly comfortable in no apparent distress. HEAD: Normocephalic. EYES: Normal reaction of pupils, equal size. NOSE: Clear with pink turbinates. THROAT: No erythema or exudates. NECK: No masses, no JVD. CHEST: No chest wall deformity. LUNGS: Equal air entry with crackles in the bilateral bases, diminished CVS: S1 and S2 normal with no audible murmur, regular rhythm. ABDOMEN: No hepatosplenomegaly, normal bowel sounds, no guarding or rigidity. SPINE: No scoliosis or deformity SKIN: No rashes CENTRAL NERVOUS SYSTEM: No focal deficits, tone is normal in all 4 extremities. EXTREMITIES: Dressing to left foot dry and intact. Right groin hemodialysis catheter in place. There is trace peripheral edema. No clubbing, no cyanosis. Peripheral pulses are intact. - Labs CBC & Chem 7: 03/02/21 08:33 03/02/21 08:33 Labs: Abnormal Lab Results - Last 24 Hours (Table) 02/18/21 03/02/21 03/02/21 Range/Units 09:00 11:53 16:31 POC Glucose (mg/dL) 275 H 151 H (75-99) mg/dL Albumin (PEP) 2.57 L (3.80-4.90) g/dL Nsihz-0-Cbuyxkzut 0.44 H (0.10-0.40) g/dL Jepas-9-Yervmspyh 1.02 H (0.60-1.00) g/dL 03/02/21 03/03/21 03/03/21 Range/Units 22:06 07:02 11:13 POC Glucose (mg/dL) 251 H 110 H 265 H (75-99) mg/dL Albumin (PEP) (3.80-4.90) g/dL Cdjtv-8-Ifamsbily (0.10-0.40) g/dL Cawhq-6-Eapdmwhgc (0.60-1.00) g/dL Assessment and Plan Assessment: 1 Acute hypoxemic respiratory failure secondary to fluid volume overload and bilateral effusions,transferred to the intensive care unit 02/19/2021 and currently on AirVo at 35 L/min and 60% FiO2, Lasix drip discontinued. 2 Status post puncture wound to the left foot, which has become infected with methicillin sensitive staph aureus, amputated third toe. Currently on Zosyn 3 History of diabetes mellitus. 4 Non-anion gap metabolic acidosis, secondary to renal failure. 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 Now requiring h emodialysis 6 Mild hyperkalemia, improved. 7 Anemia. Plan: The patient was seen and evaluated by Dr. Corbett Chest x-ray reviewed Transfer from [facility] to high flow nasal cannula Hemodialysis removed another 3 L yesterday Continue the current treatment plan Titrate the FiO2 as tolerated Increase her activity as tolerated She is cleared for transfer to the selective care unit We will continue to follow Critical care time 35 minutes I, the cosigning physician, performed a history & physical examination of the patient. Lungs sounds with bilateral crackles in the posterior bases, diminished. Maintaining good O2 saturations in the 90s on AirVo 35L/min and 60% FiO2.. I discussed the assessment and plan of care with my nurse practitioner, Ramila Guillen. I attest to the above note as dictated by her.
[2021-03-03] MEDS: hydrALAZINE HCL 25 MG TAB PO SCH ×3 (11:43→21:43)
--- NOTE | 2021-03-03 12:33 | P.PN ---
Subjective Progress Note Date: 03/03/21 Pt doing well today on Airvo, sitting in bed comfortably. Oxygen 97% on Airvo at 35LPM; CXR from 03/03 with slight improvement in aeration. Remains on lasix gtt with KVO fluids; UOP is increasing to 70cc/hr; Wt decreased to 87.5 kg. BP stable, HRs in NSR. WBC 14.1, stable, on solumedrol 60mg q6h and zosyn 3.375mg q12h. BS are improving 110-265 in last 24 hours; detemir 25U Daily/detemir 30U qHS + aspart 6U AC-TID + aspart LD SSI. Objective - Vital Signs Vital signs: Vital Signs Temp 98.9 F 03/03/21 08:00 Pulse 79 03/03/21 11:00 Resp 27 H 03/03/21 11:00 BP 130/55 03/03/21 11:00 Pulse Ox 96 03/03/21 11:00 Intake & Output 03/02/21 03/03/21 03/03/21 18:59 06:59 18:59 Intake Total 670 395 175 Output Total 560 3480 270 Balance 110 -3085 -95 Weight 89.5 kg 87.5 kg Intake: IV 170 195 175 0.9 120 120 50 Furosemide 100 mg In 50 Sodium Chloride 0.9% 90 ml @ 10 MG/HR 10 mls/hr IV .Q10H [facility] Rx#: [id number] Piperacillin-Tazobactam 3 75 125 .375 gm In Sodium Chloride 0.9% 100 ml @ 25 mls/hr IVPB Q12H [facility] Rx# :[id number] Intake, IV Titration 100 Amount Furosemide 100 mg In 100 Sodium Chloride 0.9% 90 ml @ 10 MG/HR 10 mls/hr IV .Q10H [facility] Rx#: [id number] Oral 400 Tube Feeding 200 Output: Urine 560 480 270 Hemodialysis 3000 Other: Voiding Method Indwelling Catheter Indwelling Catheter Indwelling Catheter - Exam Gen: awake, alert HEENT: normocephalic, atraumatic, good hearing acuity, moist mucous membranes Resp: impaired air exchange, in moderate distress from dyspnea, diffuse crackles in posterior lung hair CVS: good distal perfusion x 4, RRR, no murmurs GI: soft, NTTP, ND : no SPT, no CVAT, méndez catheter is present MSK: 2+pitting edema, no clubbing Neuro: non-focal, moving all extremities Psych: cooperative, euthymic mood - Labs CBC & Chem 7: 03/02/21 08:33 03/02/21 08:33 Labs: Abnormal Lab Results - Last 24 Hours (Table) 03/02/21 03/02/21 03/03/21 Range/Units 16:31 22:06 07:02 POC Glucose (mg/dL) 151 H 251 H 110 H (75-99) mg/dL 03/03/21 Range/Units 11:13 POC Glucose (mg/dL) 265 H (75-99) mg/dL Assessment and Plan Assessment: Acute renal failure due to 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 -I expect this is secondary to recurrent blood draws from prolonged hospital stay -Follow CBC -No signs of bleeding Wet gangrene of the left third toe, MSSA -Status post ray amputation -Vascular surgery recommendations -Infectious disease recommendations -Daptomycin completed #12 days -CK, LFTs level for toxicity monitoring -Now on Zosyn as above DM 2, hypoglycemia - levemir 15 U BID + aspart 3U AC-TID + aspart LD SSI -03/01: levemir 20U BID + aspart 6U AC-TID + aspart LD SSI -03/02-03/03: levemir 25U daily/levemir 30U qHS + aspart 6U AC-TID + aspart LD SSI - follow BS - A1C 8.1 Hypertension -Exacerbated by steroids -Continue with Norvasc -added hydralazine 25mg TID Vitamin B 6 deficiency - B complex replacement Hyperkalemia Hypocalcemia Metabolic acidosis Severe frontal headache, resolved Severe sepsis without septic shock
--- NOTE | 2021-03-03 13:15 | PN ---
PROGRESS NOTE DATE OF SERVICE: 03/03/2021 REASON FOR FOLLOWUP: 1. Pneumonia. 2. Left foot cellulitis. INTERVAL HISTORY: The patient is afebrile. The patient is breathing comfortably low oxygen. The patient denies having any chest pain or any worsening cough. No abdominal pain or pain to the left foot. PHYSICAL EXAMINATION: Blood pressure 130/55, pulse of 79, temperature 98.9. She is 96% on 40% FiO2. GENERAL DESCRIPTION: General description is a middle-aged female lying in bed in no distress. RESPIRATORY SYSTEM: Unlabored breathing. Decreased intensity of breath sounds. No wheeze. HEART: S1, S2. Regular rate and rhythm. ABDOMEN: Soft. No tenderness. Left foot is currently dressed. No obvious drainage on the dressing. LABS: No new labs have been obtained today. Culture has been negative. DIAGNOSTIC IMPRESSION AND PLAN: Patient with left foot abscess, cellulitis with amputation of the left third toe followed by development of renal failure and a question of possible pneumonia. Chest x- ray shows some improvement. The patient is covered with Zosyn; to continue for now while monitoring clinical course closely. Continue supportive care. MMODL / IJN: [id number] /
--- NOTE | 2021-03-03 16:26 | PN ---
PROGRESS NOTE Patient is seen for followup for acute kidney injury secondary to postinfectious GN and ATN status post kidney biopsy. The patient also has severe volume overload and she is currently maintained on daily ultrafiltration. We have been getting 3-3.5 L daily. The patient had also been on Lasix drip which was discontinued yesterday. She continues to have good urine output of about 1-1.2 L per day and along with ultrafiltration she has had output of about 4-4.5 L daily. Yesterday, the Lasix drip was discontinued. The patient is maintained on IV push Lasix q.8 hours. Her oxygen requirements have decreased. The FiO2 is down to 40% now. She remains on high-flow nasal cannula. Currently patient has a femoral catheter which was recently changed. Her creatinine has been staying stable around 2 mg/dL. PHYSICAL EXAMINATION: On examination today, blood pressure was 94/49, heart rate of 76 per minute. Patient is afebrile. Examination of the heart S1, S2. Examination of the lungs, bilateral breath sounds are heard. Decreased breath sounds at the bases. Abdomen: Soft, obese. Exam of lower extremities shows edema 2+ bilaterally. FLEXOGRAPHIC PRESS OPERATOR exam grossly intact. LAB: Show hemoglobin 9.2, sodium 135, potassium 3.6, BUN 69, creatinine 2.0 from 03/02/2021. ASSESSMENT: 1. Acute kidney injury status post kidney biopsy which showed acute postinfectious GN and ATN currently nonoliguric with fair urine output, maintained on daily ultrafiltration of about 3-4 L. The patient has not been dialyzed, but has been receiving just ultrafiltration. She was maintained on Lasix drip for a long period of time and this was discontinued yesterday. Currently the patient is on Lasix 60 mg q.8 hours. Renal function is stable. We will continue with daily ultrafiltration and give her a break on Saturday this . 2. Severe volume overload slowly improving although patient remains volume overloaded. I will continue with the IV dose of Lasix. We will plan for ultrafiltration tomorrow and hold off on Saturday03/05/2021. 3. Acute hypoxic respiratory failure secondary to volume overload, pneumonia, slowly improving. 4. Left foot cellulitis with osteomyelitis, status post right third toe amputation. Wound culture grew Staph aureus. 5. Anemia. Check iron profile. No active bleeding noted at this time. PLAN: Continue current dose of Lasix ultrafiltration tomorrow. We will try to give her a break on 03/05/2021. JOVANI / ELYSIAN: [id number] /
[2021-03-03 16:27] LABS: Glucose,Whole Blood 69 mg/dL (75-99)
[2021-03-03 18:44] LABS: Glucose,Whole Blood 85 mg/dL (75-99)
[2021-03-03 21:18] LABS: Glucose,Whole Blood 195 mg/dL (75-99)
[2021-03-04] MEDS: PIPERACILLIN-TAZOBACTAM 3.375 GM in SODIUM CHLORIDE 0.9% 100 ML IVPB SCH ×2 (03:22→18:03)
[2021-03-04 04:01] LABS: % Iron Saturation 45.18 (12.00-45.00)
[2021-03-04] MEDS: methylPREDNISolone SOD SUCCI 125 MG/2 ML VIAL IV SCH ×4 (05:39→23:16)
[2021-03-04] MEDS: INSULIN DETEMIR (LEVEMIR) 100 UNIT/ML SYR SQ SCH ×2 (08:00→21:48)
[2021-03-04] MEDS: INSULIN ASPART (NovoLOG) 100 UNIT/ML VIAL SQ SCH ×7 (08:00→21:48)
[2021-03-04 08:12] LABS: Glucose,Whole Blood 150 mg/dL (75-99)
[2021-03-04] MEDS: hydrALAZINE HCL 25 MG TAB PO SCH (09:06)
[2021-03-04] MEDS: PREGABALIN 75 MG CAP PO SCH ×2 (09:07→21:48)
[2021-03-04] MEDS: CYANOCOBALAMIN 500 MCG TAB PO SCH (09:08)
[2021-03-04] MEDS: FOLIC ACID 1 MG TAB PO SCH (09:08)
[2021-03-04] MEDS: DULoxetine HCL 30 MG CAPSULE.DR PO SCH (09:08)
[2021-03-04] MEDS: FAMOTIDINE 20 MG TAB PO SCH (09:08)
[2021-03-04] MEDS: HEPARIN SODIUM,PORCINE/PF 5,000 UNIT/0.5 ML SYRINGE SQ SCH ×3 (09:08→23:16)
[2021-03-04] MEDS: COLLAGENASE 250 UNIT/GM OINTMENT 30 GM TUBE TOPICAL SCH (09:09)
[2021-03-04] MEDS: FUROSEMIDE 10 MG/ML 10 ML VIAL IV SCH ×3 (09:09→23:16)
[2021-03-04] MEDS: HYDROCORTISONE 1% CREAM 454 GM JAR TOPICAL SCH ×3 (09:09→21:48)
--- NOTE | 2021-03-04 11:27 | PN ---
PROGRESS NOTE This is a 61-year-old female patient who had wet gangrene of the left foot fourth toe. Patient went for ray amputation. We have been treating with Santyl cream. Base of the wound is granulating. Continue with Santyl cream. Patient also has a history of acute on chronic renal failure. She has a right femoral catheter, having dialysis. We will discuss with Nephrology. If she is going to have it long-term, we have to place a jugular catheter and remove the catheter from the femoral vein. MMODL / IJN: [id number] /
--- NOTE | 2021-03-04 11:37 | P.PN ---
Subjective Progress Note Date: 03/04/21 Principal diagnosis: 61-year-old female seen in consultation because of acute kidney injury. 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 She was started on dialysis. He is getting ultrafiltration. She remaines short of breath, on on nasal cannula oxygen. Her appetite is good. She has a femoral catheter in the right groin that needs to be removed after dialysis today Her urine output as of yesterday was 920 mL and 3 L of ultrafiltration on d ialysis Objective - Vital Signs Vital signs: Vital Signs Temp 97.9 F 03/04/21 08:00 Pulse 86 03/04/21 08:00 Resp 18 03/04/21 08:00 BP 100/55 03/04/21 08:00 Pulse Ox 98 03/04/21 09:21 Intake & Output 03/03/21 03/04/21 03/04/21 18:59 06:59 18:59 Intake Total 515 480 240 Output Total 3470 450 Balance -2955 30 240 Weight 81.3 kg Intake: IV 315 0.9 90 Piperacillin-Tazobactam 3 225 .375 gm In Sodium Chloride 0.9% 100 ml @ 25 mls/hr IVPB Q12H [facility] Rx# :[id number] Oral 480 240 Tube Feeding 200 Output: Urine 470 450 Hemodialysis 3000 Other: Voiding Method Indwelling Catheter Indwelling Catheter Indwelling Catheter # Bowel Movements 1 Exams awake alert oriented comfortable A chin exam no JVP in neck is supple no facial asymmetry Lungs are clear to auscultation fair air entry bilaterally Heart sounds unremarkable for any murmur rub gallop Abdomen soft nontender Extremity stiffness. Neurologically awake alert oriented cheerful - Labs CBC & Chem 7: 03/02/21 08:33 03/02/21 08:33 Labs: Abnormal Lab Results - Last 24 Hours (Table) 03/02/21 03/03/21 03/03/21 Range/Units 08:33 16:24 21:17 POC Glucose (mg/dL) 69 L 195 H (75-99) mg/dL % Saturation 45.18 H (12.00-45.00) 03/04/21 Range/Units 08:08 POC Glucose (mg/dL) 150 H (75-99) mg/dL % Saturation (12.00-45.00) Assessment and Plan Assessment: Impression 1. Acute kidney injury with creatinine going up from 0.7, on 02/07/2021 kidney mass tissues postinfectious glomerular nephritis. Currently on dialysis with pure ultrafiltration. Urine output is about 900 mL. Moderate edema present 2. Diabetes mellitus with left foot cellulitis. With associated diabetic nephropathy with 2+ proteinuria. Urine protein to creatinine is 2.5 g. 3. Deafness and peripheral neuropathy neuropathy but no hematuria or family history to suggest Alport syndrome. T 4. Anemia of chronic illness hemoglobin is up from 8.5-9.2 as of 03/02/2021 5. Blood pressure is somewhat low in the 100 205 range Recommendation 1. To be dialyzed today. Pure Ultrafiltration 2. Continue Lasix 61 g IV every 8. 3. Discontinue hydralazine and watch, this might improve her edema and urine output because of pressure being slightly high if you need for renal perfusion
[2021-03-04 11:58] LABS: Glucose,Whole Blood 300 mg/dL (75-99)
--- NOTE | 2021-03-04 12:51 | P.PN ---
Subjective Progress Note Date: 03/04/21 Pt doing well today on 8L HFNC, sitting in bed comfortably. Oxygen 97%; CXR from 03/03 with slight improvement in aeration. Lasix 60mg IV TID with KVO fluids; Wt decreased to 81.3 kg. BP stable, HRs in NSR. BS are improving 110- 265 in last 24 hours; detemir 25U Daily/detemir 30U qHS + aspart 6U AC-TID + aspart LD SSI. Objective - Vital Signs Vital signs: Vital Signs Temp 97.9 F 03/04/21 08:00 Pulse 86 03/04/21 08:00 Resp 18 03/04/21 08:00 BP 100/55 03/04/21 08:00 Pulse Ox 98 03/04/21 09:21 Intake & Output 03/03/21 03/04/21 03/04/21 18:59 06:59 18:59 Intake Total 515 480 240 Output Total 3470 450 Balance -2955 30 240 Weight 81.3 kg Intake: IV 315 0.9 90 Piperacillin-Tazobactam 3 225 .375 gm In Sodium Chloride 0.9% 100 ml @ 25 mls/hr IVPB Q12H [facility] Rx# :[id number] Oral 480 240 Tube Feeding 200 Output: Urine 470 450 Hemodialysis 3000 Other: Voiding Method Indwelling Catheter Indwelling Catheter Indwelling Catheter # Bowel Movements 1 - Exam Gen: awake, alert HEENT: normocephalic, atraumatic, good hearing acuity, moist mucous membranes Resp: impaired air exchange, in moderate distress from dyspnea, diffuse crackles in posterior lung hair CVS: good distal perfusion x 4, RRR, no murmurs GI: soft, NTTP, ND : no SPT, no CVAT, méndez catheter is present MSK: 2+pitting edema, no clubbing Neuro: non-focal, moving all extremities Psych: cooperative, euthymic mood - Labs CBC & Chem 7: 03/02/21 08:33 03/02/21 08:33 Labs: Abnormal Lab Results - Last 24 Hours (Table) 03/02/21 03/03/21 03/03/21 Range/Units 08:33 16:24 21:17 POC Glucose (mg/dL) 69 L 195 H (75-99) mg/dL % Saturation 45.18 H (12.00-45.00) 03/04/21 03/04/21 Range/Units 08:08 11:56 POC Glucose (mg/dL) 150 H 300 H (75-99) mg/dL % Saturation (12.00-45.00) Assessment and Plan Assessment: Acute renal failure due to 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 -I expect this is secondary to recurrent blood draws from prolonged hospital stay -Follow CBC -No signs of bleeding Wet gangrene of the left third toe, MSSA -Status post ray amputation -Vascular surgery recommendations -Infectious disease recommendations -Daptomycin completed #12 days -CK, LFTs level for toxicity monitoring -Now on Zosyn as above DM 2, hypoglycemia - levemir 15 U BID + aspart 3U AC-TID + aspart LD SSI -03/01: levemir 20U BID + aspart 6U AC-TID + aspart LD SSI -03/02-03/04: levemir 25U daily/levemir 30U qHS + aspart 6U AC-TID + aspart LD SSI - follow BS - A1C 8.1 Hypertension -Exacerbated by steroids -Continue with Norvasc -added hydralazine 25mg TID Vitamin B 6 deficiency - B complex replacement Hyperkalemia Hypocalcemia Metabolic acidosis Severe frontal headache, resolved Severe sepsis without septic shock
--- NOTE | 2021-03-04 14:08 | P.PN ---
Subjective Progress Note Date: 03/04/21 61-year-old who presented to the emergency department on January 31, with headache, possible seizure, and also possible infection to the left foot. The patient had apparently not been feeling well for about 3-4 days prior to admission. She had a right-sided occipital headache. In addition, she apparently stepped on a stick in the yard, and developed some redness and drainage from the left foot. In addition, the patient apparently had a low- grade fever. The patient does have a history of diabetes mellitus. She recently moved to [place], from [place]. She has no doctor in this area. Anyway, over the last few days, she's been complaining of shortness of breath. Her oxygen requirements have been going up, and a chest x-ray showed bilateral infiltrates and possibly effusions, as well as a computed tomography scan showing bilateral pleural effusions, and bibasilar infiltrates and atelectasis, left greater than right. For that reason, we were consulted. The patient was on AIRVO at 45 L/m with an FiO2 of 56%. She did not appear to be particularly short of breath. The patient did state that since being on the AIRVO, she has felt better. She does have a cough, which is nonproductive. She denies any chest pain or chest discomfort. She also denies any fever or chills. Her chest x-ray and CAT scan are reviewed. White count 10.5, hemoglobin 9.9, hematocrit 30.8, and platelet count 411,000. Sed rate is 99. Sodium 134, potassium 5.4, chlorides 107, CO2 16, anion gap 11, BUN 88, and creatinine 3.31. Calcium 7.9, phosphorus 7.2. Venous Dopplers of the bilateral lower extremities were negative for DVT. A perfusion lung scan was low probability for PE. A chest x- ray done on the fifth, showed bilateral basilar infiltrates, left greater than right, with more dense consolidation in the left lower lobe. CAT scan of the chest showed bilateral pleural effusions, with extensive bilateral pneumonia and lower lobe atelectasis. COVID testing was negative, and the pro-calcitonin level was a bit elevated at 0.36. The patient is seen today 02/14/2021 in follow-up on the regular medical floor. She is currently sitting up in a chair at the bedside. Awake, alert in no acute distress. She states she is breathing a little bit better today compared to yesterday. She has been converted from the AirVo high flow oxygen back to 8 L high flow nasal cannula. O2 saturations at 95%. She's afebrile. Hemodynamically stable. Left foot wound cultures positive for MSSA. Follow-up blood cultures revealing no growth. Ultrasound of the chest does reveal a 7.8 cm pocket on the right and a 10.4 cm pocket on the left. Marked for possible thoracentesis. Echocardiogram revealed preserved left ventricular systolic function with ejection fraction 55%. No valvular heart disease. White count 17.4. Hemoglobin 9.4. Sodium 132. Potassium 5.1. Bicarb 20.5. BUN 97. Creatinine 2.9. GFR 17. Glucose 239. Being worked up for possible vasculitis, possible interstitial nephritis. ANCA pending. Possible kidney biopsy today. Remains on D5W with 3 A of bicarb at 50 MLS per hour along with oral bicarb. Antibiotics in the form of Vibramycin, daptomycin, Zosyn. This patient was last seen by us on 02/14/2021, however the patient had so many other issues being addressed by many other consultants, and her main issue was mostly related to her cellulitis, and acute kidney injury. Dr. Corbett has signed off the case on 02/14, and last night I was called about this patient developing worsening shortness of breath, she was evaluated by the rapid response team, and she was clearly in pulmonary edema. Patient was placed on BiPAP, and I recommended immediate transfer to the ICU. I saw this patient today in the ICU, she is on BiPAP, and she is definitely in pulmonary edema. Patient is on IPAP of 10 and EPAP of 5 and FiO2 of 60%, and she is in moderate respiratory distress. She is receiving antibiotics in the form of daptomycin for her cellulitis of the foot, and she received earlier a Lasix dose of 60 mg IV push, and I recommended a Lasix drip at 10 mg per hour. Discussed her condition with her boyfriend at bedside, and made aware that the patient's condition is quite serious, and the patient may end up requiring intubation and mechanical ventilation if she doesn't improve much with Lasix drip. Labs today showed leukocytosis with WBC of 23.2 hemoglobin 9.5. BUN is up to 120 creatinine is 2.16. The patient is seen today 02/21/2021 in follow-up in the intensive care unit. She is currently resting fairly comfortably in bed. Awake and alert. She is maintained on BiPAP 10/5 and 70% FiO2 with O2 saturation of 93%. She is currently on a Lasix drip at 10 mg per hour. Echocardiogram revealed preserved left ventricular systolic function with ejection fraction of 55%. Her chest x- ray is showing less fluid volume overload. She has improving edema of the lower extremities. She is diuresing well. Currently in a -4.4 L. Remains in sinus rhythm. Cultures of the third left toe were positive for MSSA. Blood cultures reveal no growth. White count 20.3. Hemoglobin 9.6. Sodium 141. Potassium 4.7. BUN 116. Creatinine 2.24. ProBNP 3280. She remains on daptomycin. Heparin for DVT prophylaxis. The patient is seen today 02/22/2021 in follow-up in the intensive care unit. She remains awake and alert. She is continued on BiPAP currently 10/5 and 90% FiO2 to maintain O2 saturations in the 90s. She remains on a Lasix drip at 10 mg per hour. She is in -8 L fluid balance in the past 48 hours. She remains on Solu-Medrol 60 mg every 8 hours. She is continued on antibiotics in the form of daptomycin. Chest x-ray continues to show diffuse bilateral airspace disease with bilateral pleural effusions. Pulmonary edema versus ARDS versus pneumonia. Follow-up blood cultures revealed no growth. White count 22.6. Hemoglobin 9.2. Sodium 142. Potassium 4.3. Creatinine 2.53. Valentin virus not detected. Heparin for DVT prophylaxis. The patient is seen today 02/28/2021 in follow-up in the intensive care unit. She is currently sitting up in bed. Receiving hemodialysis. She did receive hemodialysis yesterday with 3.5 L of fluid removed. She is still on AirVo high flow oxygen at 50 L/m at 65% FiO2. She has been alternating with BiPAP 12/5 and 65% FiO2 as well. Blood cultures revealed no growth. White count 14.5. Hemoglobin 9.2. Platelet count 126. Sodium 133. Potassium 3.8. Creatinine 1.95. Glucose 217. She remains on a Lasix drip at 10 mg per hour. Antibiotics in the form of Zosyn. Heparin for DVT prophylaxis. She remains on IV Solu- Medrol. The patient is seen today 03/01/2021 in follow-up in the intensive care unit. He is currently resting fairly comfortably in bed. She received dialysis again yesterday with 3.5 L removed. She remains on AirVo high flow oxygen at 50 L/m at 76% FiO2. She remains on a Lasix drip at 10 mg per hour. 0.9 normal setting at KVO. His x-ray continues to show diffuse bilateral airspace disease with some slight improvement. Right-sided PICC line remains in place. White count 12.4. Hemoglobin 8.5. Platelets 123. Lymphocytes 0.2. Sodium 131. Potassium 3.7. Creatinine 2.13. Glucose 343. She remains on Zosyn. Bronchodilators. IV Solu-Medrol. Heparin for DVT prophylaxis. The patient is seen today 03/02/2021 in follow-up in the intensive care unit. She is currently sitting up in bed. Awake and alert in no acute distress. She received hemodialysis again yesterday with another 3 L removed. She is down to 45 L/m and 70% FiO2 on the AirVo high flow oxygen. She did not require BiPAP last night. She remains on Lasix at 10 mg per hour. 0.9 normal saline at KVO. White count 14.1. Hemoglobin 9.2. Platelets 136. Sodium 135. Potassium 3.6. Creatinine 2.00. Glucose 287. She remains on bronchodilators, IV Solu-Medrol. Antibiotics in the form of Zosyn. She did have her hemodialysis catheter replaced yesterday. The patient is seen today 03/03/2021 in follow-up in the care unit. She is awake and alert in no acute distress. Currently sitting up in bed. Doing better today compared to yesterday. Her Lasix drip is off. She has 0.9 normal saline at 10 mL an hour. She is currently on the AirVo high flow oxygen at 35 L/m 60% of FiO2. She received hemodialysis again yesterday with 3 L removed. Chest x-ray showing slight improvement in the bilateral patchy opacities. Glucose 265. If she remains on Lasix 60 mg IV every 8 hours. Heparin for DVT prophylaxis. IV Solu-Medrol. Antibiotics in the form of Zosyn. The patient is seen today 03/04/2021 and follow-up on the selective care unit. She is currently sitting up in bed. Awake and alert in no acute distress. Better. Denies any worsening shortness of breath, cough or congestion. She is down to 6 L high flow nasal cannula with O2 saturation 98%. She remains on Lasix 60 mg IV every 8 hours. Heparin for DVT prophylaxis. IV Solu-Medrol. Antibiotics in the form of Zosyn. Objective - Vital Signs Vital signs: Vital Signs Temp 97.9 F 03/04/21 08:00 Pulse 86 03/04/21 08:00 Resp 18 03/04/21 08:00 BP 100/55 03/04/21 08:00 Pulse Ox 98 03/04/21 09: Intake & Output 03/03/21 03/04/21 03/04/21 18:59 06:59 18:59 Intake Total 515 480 240 Output Total 3470 450 Balance -2955 30 240 Weight 81.3 kg Intake: IV 315 0.9 90 Piperacillin-Tazobactam 3 225 .375 gm In Sodium Chloride 0.9% 100 ml @ 25 mls/hr IVPB Q12H [facility] Rx# :[id number] Oral 480 240 Tube Feeding 200 Output: Urine 470 450 Hemodialysis 3000 Other: Voiding Method Indwelling Catheter Indwelling Catheter Indwelling Catheter # Bowel Movements 1 - Exam GENERAL EXAM: Alert, very pleasant 61-year-old female patient, on oxygen at 6 L nasal cannula, fairly comfortable in no apparent distress. HEAD: Normocephalic. EYES: Normal reaction of pupils, equal size. NOSE: Clear with pink turbinates. THROAT: No erythema or exudates. NECK: No masses, no JVD. CHEST: No chest wall deformity. LUNGS: Equal air entry with crackles in the bilateral bases, diminished CVS: S1 and S2 normal with no audible murmur, regular rhythm. ABDOMEN: No hepatosplenomegaly, normal bowel sounds, no guarding or rigidity. SPINE: No scoliosis or deformity SKIN: No rashes CENTRAL NERVOUS SYSTEM: No focal deficits, tone is normal in all 4 extremities. EXTREMITIES: Dressing to left foot dry and intact. Right groin hemodialysis catheter in place. There is trace peripheral edema. No clubbing, no cyanosis. Peripheral pulses are intact. - Labs CBC & Chem 7: 03/02/21 08:33 03/02/21 08:33 Labs: Abnormal Lab Results - Last 24 Hours (Table) 03/02/21 03/03/21 03/03/21 Range/Units 08:33 16:24 21:17 POC Glucose (mg/dL) 69 L 195 H (75-99) mg/dL % Saturation 45.18 H (12.00-45.00) 03/04/21 03/04/21 Range/Units 08:08 11:56 POC Glucose (mg/dL) 150 H 300 H (75-99) mg/dL % Saturation (12.00-45.00) Assessment and Plan Assessment: 1 Acute hypoxemic respiratory failure secondary to fluid volume overload and bilateral effusions,transferred to the intensive care unit 02/19/2021 and currently on 6 L nasal cannula. 2 Status post puncture wound to the left foot, which has become infected with methicillin sensitive staph aureus, amputated third toe. Currently on Zosyn 3 History of diabetes mellitus. 4 Non-anion gap metabolic acidosis, secondary to renal failure. 5 Acute kidney injury secondary to proliferative and exudative glomerulonephriti s, biopsy proven, secondary to MSSA. Now requiring hemodialysis 6 Mild hyperkalemia, improved. 7 Anemia. Plan: The patient was seen and evaluated by Dr. Corbett Continue the current treatment plan Titrate the FiO2 as tolerated Increase her activity as tolerated We will continue to follow I, the cosigning physician, performed a history & physical examination of the patient. Lungs sounds with bilateral crackles in the posterior bases, diminished. Maintaining good O2 saturations in the 90s on 6 L high flow nasal cannula.. I discussed the assessment and plan of care with my nurse practitioner, Ramila Guillen. I attest to the above note as dictated by her.
[2021-03-04] MEDS ORDERED: MIDODRINE 5 MG TAB PO PRN (16:26)
[2021-03-04 17:05] LABS: Glucose,Whole Blood 217 mg/dL (75-99)
--- NOTE | 2021-03-04 19:52 | PN ---
PROGRESS NOTE DATE OF SERVICE: 03/04/2021 REASON FOR FOLLOWUP: 1. Left foot abscess, cellulitis wound. 2. Pneumonia. INTERVAL HISTORY: The patient is afebrile. The patient has been moved out of the ICU. She is currently breathing comfortably ( ). Denies having any chest pain. No worsening cough. No abdominal pain, no diarrhea. PHYSICAL EXAMINATION: Blood pressure 102/68 with a pulse of 85, temperature 98.1. She is 98% on 8 L nasal cannula. General description is a middle-aged female lying in bed in no distress. Respiratory system: Unlabored breathing, decreased breath sounds at the bases, no wheeze. Heart S1, S2. Regular rate and rhythm. Abdomen soft, no tenderness. LABS: No new labs have been obtained today. DIAGNOSTIC IMPRESSION AND PLAN: Patient with left foot abscess and cellulitis status post amputation of the left third toe, subsequently developing renal failure and a component of pneumonia. Patient is currently covered with Zosyn. Transition to oral antibiotic on discharge and continue supportive care. MMODL / IJN: [id number] /
[2021-03-04 21:00] LABS: Glucose,Whole Blood 416 mg/dL (75-99)
[2021-03-05] MEDS: PIPERACILLIN-TAZOBACTAM 3.375 GM in SODIUM CHLORIDE 0.9% 100 ML IVPB SCH ×2 (03:26→17:27)
[2021-03-05] MEDS: methylPREDNISolone SOD SUCCI 125 MG/2 ML VIAL IV SCH ×3 (06:16→17:26)
[2021-03-05 06:50] LABS: Glucose,Whole Blood 227 mg/dL (75-99)
[2021-03-05] MEDS: INSULIN ASPART (NovoLOG) 100 UNIT/ML VIAL SQ SCH ×7 (07:07→21:24)
[2021-03-05] MEDS: INSULIN DETEMIR (LEVEMIR) 100 UNIT/ML SYR SQ SCH ×2 (07:07→21:24)
[2021-03-05] MEDS: FAMOTIDINE 20 MG TAB PO SCH (09:06)
[2021-03-05] MEDS: FUROSEMIDE 10 MG/ML 10 ML VIAL IV SCH ×2 (09:06→17:26)
[2021-03-05] MEDS: CYANOCOBALAMIN 500 MCG TAB PO SCH (09:06)
[2021-03-05] MEDS: DULoxetine HCL 30 MG CAPSULE.DR PO SCH (09:06)
[2021-03-05] MEDS: PREGABALIN 75 MG CAP PO SCH ×2 (09:06→21:24)
[2021-03-05] MEDS: FOLIC ACID 1 MG TAB PO SCH (09:06)
[2021-03-05] MEDS: COLLAGENASE 250 UNIT/GM OINTMENT 30 GM TUBE TOPICAL SCH (09:07)
[2021-03-05] MEDS: HYDROCORTISONE 1% CREAM 454 GM JAR TOPICAL SCH ×3 (09:07→21:34)
[2021-03-05] MEDS: HEPARIN SODIUM,PORCINE/PF 5,000 UNIT/0.5 ML SYRINGE SQ SCH ×2 (09:07→17:26)
[2021-03-05 09:41] LABS: Basophils % (A) 0 %; Eosinophils % (A) 0 %; HCT 26.3 % (34.0-46.0); HGB 8.8 gm/dL (11.4-16.0); Lymphocytes # (A) 0.3 k/uL (1.0-4.8); Lymphocytes % (A) 3 %; MCH 26.7 pg (25.0-35.0); MCHC 33.6 g/dL (31.0-37.0); MCV 79.5 fL (80.0-100.0); Mean Platelet Volume 10.1; Monocytes # (A) 0.2 k/uL (0-1.0); Monocytes % (A) 2 %; Neutrophils % (A) 95 %; Platelet Count 139 k/uL (150-450); RBC 3.31 m/uL (3.80-5.40); RDW 14.3 % (11.5-15.5); WBC 11.6 k/uL (3.8-10.6)
--- NOTE | 2021-03-05 09:46 | P.PN ---
Subjective Progress Note Date: 03/05/21 Principal diagnosis: 61-year-old female seen in consultation because of acute kidney injury. 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 She was started on dialysis. Last dialysis. Ultrafiltration yesterday 03/04/2021 She remaines short of breath, on nasal cannula oxygen, but less short of breath. Her appetite is good. She has a femoral catheter in the right groin that needs to be removed her urine output is 105 0 mL as of last 24 hours. Objective - Vital Signs Vital signs: Vital Signs Temp 98.2 F 03/05/21 03:44 Pulse 73 03/05/21 03:44 Resp 16 03/05/21 03:44 BP 113/58 03/05/21 03:44 Pulse Ox 98 03/05/21 03:44 Intake & Output 03/04/21 03/05/21 03/05/21 18:59 06:59 18:59 Intake Total 1500 240 240 Output Total 4000 1050 Balance -2500 -810 240 Weight 82 kg Intake: Oral 1500 240 240 Output: Urine 1050 Hemodialysis 4000 Other: Voiding Method Indwelling Catheter Indwelling Catheter # Bowel Movements 1 On exam he is she is on nasal cannula comfortable awake alert. HEENT exam no JVP neck is supple no facial asymmetry Lungs are significant for an occasional coarse crackle at bases good air entry bilaterally Heart sounds unremarkable for any murmur rub gallop Abdomen soft nontender Extremity exam reveals minimal edema The Justin catheter on the right side is clean. Neurologically awake alert oriented comfortable - Labs CBC & Chem 7: 03/05/21 08:24 03/02/21 08:33 Labs: Abnormal Lab Results - Last 24 Hours (Table) 03/04/21 03/04/21 03/04/21 Range/Units 11:56 16:55 20:54 WBC (3.8-10.6) k/uL RBC (3.80-5.40) m/uL Hgb (11.4-16.0) gm/dL Hct (34.0-46.0) % MCV (80.0-100.0) fL Plt Count (150-450) k/uL Neutrophils # (1.3-7.7) k/uL Lymphocytes # (1.0-4.8) k/uL POC Glucose (mg/dL) 300 H 217 H 416 H (75-99) mg/dL 03/05/21 03/05/21 Range/Units 06:49 08:24 WBC 11.6 H (3.8-10.6) k/uL RBC 3.31 L (3.80-5.40) m/uL Hgb 8.8 L (11.4-16.0) gm/dL Hct 26.3 L (34.0-46.0) % MCV 79.5 L (80.0-100.0) fL Plt Count 139 L (150-450) k/uL Neutrophils # 11.0 H (1.3-7.7) k/uL Lymphocytes # 0.3 L (1.0-4.8) k/uL POC Glucose (mg/dL) 227 H (75-99) mg/dL Assessment and Plan Assessment: Impression 1. Acute kidney injury with creatinine going up from 0.7, on 02/07/2021 kidney biopsy showed postinfectious glomerular nephritis. Currently on dialysis with pure ultrafiltration, last session was yesterday 03/04/2021. Urine output is about 1050 mL, with mild edema present 2. Diabetes mellitus with left foot cellulitis. With associated diabetic nephropathy with 2+ proteinuria. Urine protein to creatinine is 2.5 g. 3. Deafness and peripheral neuropathy neuropathy but no hematuria or family history to suggest Alport syndrome. T 4. Anemia of chronic illness hemoglobin is up from 8.5-9.2 as of 03/02/2021 5. Blood pressure is somewhat low in the 100's to 122/65, off of the hydralazine improved Recommendation 1. Hold dialysis and see how she does. Continue same medications 2. Continue Lasix 61 g IV every 8. 3. Justin catheter needs to come out as it has been there for some time. If her dialysis needs to be reduced she will need a new permacath possible
[2021-03-05 09:59] LABS: Calcium 8.1 mg/dL (8.4-10.2); Magnesium 1.9 mg/dL (1.6-2.3); Potassium 4.1 mmol/L (3.5-5.1)
--- NOTE | 2021-03-05 10:00 | P.PN ---
Subjective Progress Note Date: 03/05/21 Pt doing well today on 5L NC, sitting in bed comfortably. Oxygen 98%; CXR from 03/03 with slight improvement in aeration. Lasix 60mg IV TID with KVO fluids; Wt decreased to 82kg. BP stable, HRs in NSR. BS are uncontrolled 150-416 in last 24 hours; detemir 25U Daily/detemir 30U qHS + aspart 6U AC-TID + aspart LD SSI. Objective - Vital Signs Vital signs: Vital Signs Temp 98.2 F 03/05/21 03:44 Pulse 73 03/05/21 03:44 Resp 16 03/05/21 03:44 BP 113/58 03/05/21 03:44 Pulse Ox 98 03/05/21 03:44 Intake & Output 03/04/21 03/05/21 03/05/21 18:59 06:59 18:59 Intake Total 1500 240 240 Output Total 4000 1050 Balance -2500 -810 240 Weight 82 kg Intake: Oral 1500 240 240 Output: Urine 1050 Hemodialysis 4000 Other: Voiding Method Indwelling Catheter Indwelling Catheter # Bowel Movements 1 - Exam Gen: awake, alert HEENT: normocephalic, atraumatic, good hearing acuity, moist mucous membranes Resp: impaired air exchange, in moderate distress from dyspnea, diffuse crackles in posterior lung hair CVS: good distal perfusion x 4, RRR, no murmurs GI: soft, NTTP, ND : no SPT, no CVAT, méndez catheter is present MSK: 2+pitting edema, no clubbing Neuro: non-focal, moving all extremities Psych: cooperative, euthymic mood - Labs CBC & Chem 7: 03/05/21 08:24 03/02/21 08:33 Labs: Abnormal Lab Results - Last 24 Hours (Table) 03/04/21 03/04/21 03/04/21 Range/Units 11:56 16:55 20:54 WBC (3.8-10.6) k/uL RBC (3.80-5.40) m/uL Hgb (11.4-16.0) gm/dL Hct (34.0-46.0) % MCV (80.0-100.0) fL Plt Count (150-450) k/uL Neutrophils # (1.3-7.7) k/uL Lymphocytes # (1.0-4.8) k/uL POC Glucose (mg/dL) 300 H 217 H 416 H (75-99) mg/dL 03/05/21 03/05/21 Range/Units 06:49 08:24 WBC 11.6 H (3.8-10.6) k/uL RBC 3.31 L (3.80-5.40) m/uL Hgb 8.8 L (11.4-16.0) gm/dL Hct 26.3 L (34.0-46.0) % MCV 79.5 L (80.0-100.0) fL Plt Count 139 L (150-450) k/uL Neutrophils # 11.0 H (1.3-7.7) k/uL Lymphocytes # 0.3 L (1.0-4.8) k/uL POC Glucose (mg/dL) 227 H (75-99) mg/dL Assessment and Plan Assessment: Acute renal failure due to 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 -I expect this is secondary to recurrent blood draws from prolonged hospital stay -Follow CBC -No signs of bleeding Wet gangrene of the left third toe, MSSA -Status post ray amputation -Vascular surgery recommendations -Infectious disease recommendations -Daptomycin completed #12 days -CK, LFTs level for toxicity monitoring -Now on Zosyn as above DM 2, hypoglycemia - levemir 15 U BID + aspart 3U AC-TID + aspart LD SSI -03/01: levemir 20U BID + aspart 6U AC-TID + aspart LD SSI -03/02-03/04: levemir 25U daily/levemir 30U qHS + aspart 6U AC-TID + aspart LD SSI -03/05: levemir 30U BID + aspart 10U AC-TID + aspart LD SSI - follow BS - A1C 8.1 Hypertension -Exacerbated by steroids -Continue with Norvasc -added hydralazine 25mg TID Vitamin B 6 deficiency - B complex replacement Hyperkalemia Hypocalcemia Metabolic acidosis Severe frontal headache, resolved Severe sepsis without septic shock
[2021-03-05 11:58] LABS: Glucose,Whole Blood 267 mg/dL (75-99)
--- NOTE | 2021-03-05 13:18 | P.PN ---
Subjective Progress Note Date: 03/05/21 61-year-old who presented to the emergency department on January 31, with headache, possible seizure, and also possible infection to the left foot. The patient had apparently not been feeling well for about 3-4 days prior to admission. She had a right-sided occipital headache. In addition, she apparently stepped on a stick in the yard, and developed some redness and drainage from the left foot. In addition, the patient apparently had a low- grade fever. The patient does have a history of diabetes mellitus. She recently moved to [place], from [place]. She has no doctor in this area. Anyway, over the last few days, she's been complaining of shortness of breath. Her oxygen requirements have been going up, and a chest x-ray showed bilateral infiltrates and possibly effusions, as well as a computed tomography scan showing bilateral pleural effusions, and bibasilar infiltrates and atelectasis, left greater than right. For that reason, we were consulted. The patient was on AIRVO at 45 L/m with an FiO2 of 56%. She did not appear to be particularly short of breath. The patient did state that since being on the AIRVO, she has felt better. She does have a cough, which is nonproductive. She denies any chest pain or chest discomfort. She also denies any fever or chills. Her chest x-ray and CAT scan are reviewed. White count 10.5, hemoglobin 9.9, hematocrit 30.8, and platelet count 411,000. Sed rate is 99. Sodium 134, potassium 5.4, chlorides 107, CO2 16, anion gap 11, BUN 88, and creatinine 3.31. Calcium 7.9, phosphorus 7.2. Venous Dopplers of the bilateral lower extremities were negative for DVT. A perfusion lung scan was low probability for PE. A chest x- ray done on the fifth, showed bilateral basilar infiltrates, left greater than right, with more dense consolidation in the left lower lobe. CAT scan of the chest showed bilateral pleural effusions, with extensive bilateral pneumonia and lower lobe atelectasis. COVID testing was negative, and the pro-calcitonin level was a bit elevated at 0.36. The patient is seen today 02/14/2021 in follow-up on the regular medical floor. She is currently sitting up in a chair at the bedside. Awake, alert in no acute distress. She states she is breathing a little bit better today compared to yesterday. She has been converted from the AirVo high flow oxygen back to 8 L high flow nasal cannula. O2 saturations at 95%. She's afebrile. Hemodynamically stable. Left foot wound cultures positive for MSSA. Follow-up blood cultures revealing no growth. Ultrasound of the chest does reveal a 7.8 cm pocket on the right and a 10.4 cm pocket on the left. Marked for possible thoracentesis. Echocardiogram revealed preserved left ventricular systolic function with ejection fraction 55%. No valvular heart disease. White count 17.4. Hemoglobin 9.4. Sodium 132. Potassium 5.1. Bicarb 20.5. BUN 97. Creatinine 2.9. GFR 17. Glucose 239. Being worked up for possible vasculitis, possible interstitial nephritis. ANCA pending. Possible kidney biopsy today. Remains on D5W with 3 A of bicarb at 50 MLS per hour along with oral bicarb. Antibiotics in the form of Vibramycin, daptomycin, Zosyn. This patient was last seen by us on 02/14/2021, however the patient had so many other issues being addressed by many other consultants, and her main issue was mostly related to her cellulitis, and acute kidney injury. Dr. Corbett has signed off the case on 02/14, and last night I was called about this patient developing worsening shortness of breath, she was evaluated by the rapid response team, and she was clearly in pulmonary edema. Patient was placed on BiPAP, and I recommended immediate transfer to the ICU. I saw this patient today in the ICU, she is on BiPAP, and she is definitely in pulmonary edema. Patient is on IPAP of 10 and EPAP of 5 and FiO2 of 60%, and she is in moderate respiratory distress. She is receiving antibiotics in the form of daptomycin for her cellulitis of the foot, and she received earlier a Lasix dose of 60 mg IV push, and I recommended a Lasix drip at 10 mg per hour. Discussed her condition with her boyfriend at bedside, and made aware that the patient's condition is quite serious, and the patient may end up requiring intubation and mechanical ventilation if she doesn't improve much with Lasix drip. Labs today showed leukocytosis with WBC of 23.2 hemoglobin 9.5. BUN is up to 120 creatinine is 2.16. The patient is seen today 02/21/2021 in follow-up in the intensive care unit. She is currently resting fairly comfortably in bed. Awake and alert. She is maintained on BiPAP 10/5 and 70% FiO2 with O2 saturation of 93%. She is currently on a Lasix drip at 10 mg per hour. Echocardiogram revealed preserved left ventricular systolic function with ejection fraction of 55%. Her chest x- ray is showing less fluid volume overload. She has improving edema of the lower extremities. She is diuresing well. Currently in a -4.4 L. Remains in sinus rhythm. Cultures of the third left toe were positive for MSSA. Blood cultures reveal no growth. White count 20.3. Hemoglobin 9.6. Sodium 141. Potassium 4.7. BUN 116. Creatinine 2.24. ProBNP 3280. She remains on daptomycin. Heparin for DVT prophylaxis. The patient is seen today 02/22/2021 in follow-up in the intensive care unit. She remains awake and alert. She is continued on BiPAP currently 10/5 and 90% FiO2 to maintain O2 saturations in the 90s. She remains on a Lasix drip at 10 mg per hour. She is in -8 L fluid balance in the past 48 hours. She remains on Solu-Medrol 60 mg every 8 hours. She is continued on antibiotics in the form of daptomycin. Chest x-ray continues to show diffuse bilateral airspace disease with bilateral pleural effusions. Pulmonary edema versus ARDS versus pneumonia. Follow-up blood cultures revealed no growth. White count 22.6. Hemoglobin 9.2. Sodium 142. Potassium 4.3. Creatinine 2.53. Valentin virus not detected. Heparin for DVT prophylaxis. The patient is seen today 02/28/2021 in follow-up in the intensive care unit. She is currently sitting up in bed. Receiving hemodialysis. She did receive hemodialysis yesterday with 3.5 L of fluid removed. She is still on AirVo high flow oxygen at 50 L/m at 65% FiO2. She has been alternating with BiPAP 12/5 and 65% FiO2 as well. Blood cultures revealed no growth. White count 14.5. Hemoglobin 9.2. Platelet count 126. Sodium 133. Potassium 3.8. Creatinine 1.95. Glucose 217. She remains on a Lasix drip at 10 mg per hour. Antibiotics in the form of Zosyn. Heparin for DVT prophylaxis. She remains on IV Solu- Medrol. The patient is seen today 03/01/2021 in follow-up in the intensive care unit. He is currently resting fairly comfortably in bed. She received dialysis again yesterday with 3.5 L removed. She remains on AirVo high flow oxygen at 50 L/m at 76% FiO2. She remains on a Lasix drip at 10 mg per hour. 0.9 normal setting at KVO. His x-ray continues to show diffuse bilateral airspace disease with some slight improvement. Right-sided PICC line remains in place. White count 12.4. Hemoglobin 8.5. Platelets 123. Lymphocytes 0.2. Sodium 131. Potassium 3.7. Creatinine 2.13. Glucose 343. She remains on Zosyn. Bronchodilators. IV Solu-Medrol. Heparin for DVT prophylaxis. The patient is seen today 03/02/2021 in follow-up in the intensive care unit. She is currently sitting up in bed. Awake and alert in no acute distress. She received hemodialysis again yesterday with another 3 L removed. She is down to 45 L/m and 70% FiO2 on the AirVo high flow oxygen. She did not require BiPAP last night. She remains on Lasix at 10 mg per hour. 0.9 normal saline at KVO. White count 14.1. Hemoglobin 9.2. Platelets 136. Sodium 135. Potassium 3.6. Creatinine 2.00. Glucose 287. She remains on bronchodilators, IV Solu-Medrol. Antibiotics in the form of Zosyn. She did have her hemodialysis catheter replaced yesterday. The patient is seen today 03/03/2021 in follow-up in the care unit. She is awake and alert in no acute distress. Currently sitting up in bed. Doing better today compared to yesterday. Her Lasix drip is off. She has 0.9 normal saline at 10 mL an hour. She is currently on the AirVo high flow oxygen at 35 L/m 60% of FiO2. She received hemodialysis again yesterday with 3 L removed. Chest x-ray showing slight improvement in the bilateral patchy opacities. Glucose 265. If she remains on Lasix 60 mg IV every 8 hours. Heparin for DVT prophylaxis. IV Solu-Medrol. Antibiotics in the form of Zosyn. The patient is seen today 03/04/2021 and follow-up on the selective care unit. She is currently sitting up in bed. Awake and alert in no acute distress. Better. Denies any worsening shortness of breath, cough or congestion. She is down to 6 L high flow nasal cannula with O2 saturation 98%. She remains on Lasix 60 mg IV every 8 hours. Heparin for DVT prophylaxis. IV Solu-Medrol. Antibiotics in the form of Zosyn. The patient is seen today 03/05/2021 in follow-up on the selective care unit. She is currently resting quite comfortably in bed. Awake and alert in no acute distress. No worsening shortness of breath, cough or congestion. Currently maintaining O2 saturations in the upper 90s on 5 L/m per nasal cannula. She's afebrile. Hemodynamically stable. White count 11.6. Hemoglobin 8.8. Platelet count 139. Sodium 132. Potassium 4.1. Creatinine 2.10. She received hemodialysis yesterday with 4 L removed. She remains on Lasix 60 mg IV every 8 hours. Continued on bronchodilators, Zosyn, Solu-Medrol. Objective - Vital Signs Vital signs: Vital Signs Temp 98.2 F 03/05/21 08:00 Pulse 84 03/05/21 08:00 Resp 18 03/05/21 08:00 BP 125/58 03/05/21 08:00 Pulse Ox 97 03/05/21 08:00 Intake & Output 03/04/21 03/05/21 03/05/21 18:59 06:59 18:59 Intake Total 1500 240 240 Output Total 4000 1050 Balance -2500 -810 240 Weight 82 kg Intake: Oral 1500 240 240 Output: Urine 1050 Hemodialysis 4000 Other: Voiding Method Indwelling Catheter Indwelling Catheter Indwelling Catheter # Bowel Movements 1 - Exam GENERAL EXAM: Alert, very pleasant 61-year-old female patient, on oxygen at 5 L nasal cannula, fairly comfortable in no apparent distress. HEAD: Normocephalic. EYES: Normal reaction of pupils, equal size. NOSE: Clear with pink turbinates. THROAT: No erythema or exudates. NECK: No masses, no JVD. CHEST: No chest wall deformity. LUNGS: Equal air entry with crackles in the bilateral bases, diminished CVS: S1 and S2 normal with no audible murmur, regular rhythm. ABDOMEN: No hepatosplenomegaly, normal bowel sounds, no guarding or rigidity. SPINE: No scoliosis or deformity SKIN: No rashes CENTRAL NERVOUS SYSTEM: No focal deficits, tone is normal in all 4 extremities. EXTREMITIES: Dressing to left foot dry and intact. Right groin hemodialysis catheter in place. There is trace peripheral edema. No clubbing, no cyanosis. Peripheral pulses are intact. - Labs CBC & Chem 7: 03/05/21 08:24 03/05/21 08:24 Labs: Abnormal Lab Results - Last 24 Hours (Table) 03/04/21 03/04/21 03/05/21 Range/Units 16:55 20:54 06:49 WBC (3.8-10.6) k/uL RBC (3.80-5.40) m/uL Hgb (11.4-16.0) gm/dL Hct (34.0-46.0) % MCV (80.0-100.0) fL Plt Count (150-450) k/uL Neutrophils # (1.3-7.7) k/uL Lymphocytes # (1.0-4.8) k/uL Sodium (137-145) mmol/L BUN (7-17) mg/dL Creatinine (0.52-1.04) mg/dL Glucose (74-99) mg/dL POC Glucose (mg/dL) 217 H 416 H 227 H (75-99) mg/dL Calcium (8.4-10.2) mg/dL 03/05/21 03/05/21 03/05/21 Range/Units 08:24 08:24 11:56 WBC 11.6 H (3.8-10.6) k/uL RBC 3.31 L (3.80-5.40) m/uL Hgb 8.8 L (11.4-16.0) gm/dL Hct 26.3 L (34.0-46.0) % MCV 79.5 L (80.0-100.0) fL Plt Count 139 L (150-450) k/uL Neutrophils # 11.0 H (1.3-7.7) k/uL Lymphocytes # 0.3 L (1.0-4.8) k/uL Sodium 132 L (137-145) mmol/L BUN 72 H (7-17) mg/dL Creatinine 2.10 H (0.52-1.04) mg/dL Glucose 309 H (74-99) mg/dL POC Glucose (mg/dL) 267 H (75-99) mg/dL Calcium 8.1 L (8.4-10.2) mg/dL Assessment and Plan Assessment: 1 Acute hypoxemic respiratory failure secondary to fluid volume overload and bilateral effusions, currently on 5 L nasal cannula. 2 Status post puncture wound to the left foot, which has become infected with methicillin sensitive staph aureus, amputated third toe. Currently on Zosyn 3 History of diabetes mellitus. 4 Non-anion gap metabolic acidosis, secondary to renal failure. 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 Now requiring hemodialysis 6 Mild hyperkalemia, improved. 7 Anemia. Plan: The patient was seen and evaluated by Dr. Corbett She continues to improve daily Hemodialysis per nephrology Continue the current treatment plan Titrate the FiO2 as tolerated Increase her activity as tolerated We will continue to follow I, the cosigning physician, performed a history & physical examination of the patient. Lungs sounds with bilateral crackles in the posterior bases, diminished. Maintaining good O2 saturations in the 90s on 5 L high flow nasal cannula.. I discussed the assessment and plan of care with my nurse practitioner, Ramila Guillen. I attest to the above note as dictated by her.
[2021-03-05 16:45] LABS: Glucose,Whole Blood 357 mg/dL (75-99)
--- NOTE | 2021-03-05 19:34 | PN ---
PROGRESS NOTE DATE OF SERVICE: 03/05/2021 REASON FOR FOLLOWUP: 1. Left foot wound and cellulitis. 2. Pneumonia. INTERVAL HISTORY: The patient is afebrile. The patient is breathing more comfortably. No chest pain or shortness of breath. Occasional cough. No abdominal pain or diarrhea. No pain to the left foot. PHYSICAL EXAMINATION: Blood pressure 115/81 with a pulse of 92, temperature 98.2. She is 94% on 3 L nasal cannula. GENERAL DESCRIPTION: General description is a middle-aged female up in the chair in no distress. RESPIRATORY SYSTEM: Unlabored breathing. Decreased breath sounds at the bases. No wheeze. HEART: S1, S2. Regular rate and rhythm. ABDOMEN: Soft. Left foot wound at the third toe amputation site looks clean; minimal slough tissue. Surrounding swelling and redness has improved. There is no drainage. LABS: Hemoglobin 8.9, white count 11.6, BUN of 72, creatinine 2.10. DIAGNOSTIC IMPRESSION AND PLAN: Patient with a left foot infection with secondary cellulitis and a question of pneumonia. The patient is currently covered with Zosyn; transition to oral antibiotic on discharge. Local care to the left foot wound. Continue with Santyl and moist dressing and continue supportive care. MMODL / IJN: [id number] /
[2021-03-05 20:51] LABS: Glucose,Whole Blood 394 mg/dL (75-99)
[2021-03-06] MEDS: HEPARIN SODIUM,PORCINE/PF 5,000 UNIT/0.5 ML SYRINGE SQ SCH ×3 (00:16→15:52)
[2021-03-06] MEDS: methylPREDNISolone SOD SUCCI 125 MG/2 ML VIAL IV SCH ×4 (00:17→18:37)
[2021-03-06] MEDS: FUROSEMIDE 10 MG/ML 10 ML VIAL IV SCH ×3 (00:17→15:51)
[2021-03-06] MEDS: PIPERACILLIN-TAZOBACTAM 3.375 GM in SODIUM CHLORIDE 0.9% 100 ML IVPB SCH ×2 (04:54→15:52)
[2021-03-06 06:39] LABS: Glucose,Whole Blood 220 mg/dL (75-99)
[2021-03-06] MEDS: INSULIN ASPART (NovoLOG) 100 UNIT/ML VIAL SQ SCH ×7 (06:49→20:16)
[2021-03-06] MEDS: INSULIN DETEMIR (LEVEMIR) 100 UNIT/ML SYR SQ SCH ×2 (06:49→20:17)
--- NOTE | 2021-03-06 08:22 | XR ---
EXAMINATION TYPE: XR chest 1V portable DATE OF EXAM: 03/06/2021 COMPARISON: Chest x-ray 03/03/2021 HISTORY: ARDS TECHNIQUE: Single frontal view of the chest is obtained. FINDINGS: Diffuse bilateral airspace disease shows a similar appearance. Right-sided PICC line shows the distal tip in the right atrium. There are overlying artifacts. There is no evident pneumothorax or pleural effusion. Lung volumes are low. Cardiac mediastinal silhouette is stable. IMPRESSION: Findings are similar to prior exam. Correlate for pneumonia, edema
[2021-03-06 09:12] LABS: Basophils % (A) 0 %; Eosinophils % (A) 0 %; HCT 24.2 % (34.0-46.0); HGB 8.3 gm/dL (11.4-16.0); Lymphocytes # (A) 0.4 k/uL (1.0-4.8); Lymphocytes % (A) 4 %; MCH 26.8 pg (25.0-35.0); MCHC 34.1 g/dL (31.0-37.0); MCV 78.4 fL (80.0-100.0); Mean Platelet Volume 8.9; Monocytes # (A) 0.2 k/uL (0-1.0); Monocytes % (A) 2 %; Neutrophils # (A) 10.1 k/uL (1.3-7.7); Neutrophils % (A) 94 %; Platelet Count 153 k/uL (150-450); RBC 3.08 m/uL (3.80-5.40); RDW 14.2 % (11.5-15.5); WBC 10.7 k/uL (3.8-10.6)
[2021-03-06] MEDS: COLLAGENASE 250 UNIT/GM OINTMENT 30 GM TUBE TOPICAL SCH (09:20)
[2021-03-06] MEDS: FOLIC ACID 1 MG TAB PO SCH (09:20)
[2021-03-06] MEDS: PREGABALIN 75 MG CAP PO SCH ×2 (09:20→20:16)
[2021-03-06] MEDS: FAMOTIDINE 20 MG TAB PO SCH (09:20)
[2021-03-06] MEDS: CYANOCOBALAMIN 500 MCG TAB PO SCH (09:20)
[2021-03-06] MEDS: DULoxetine HCL 30 MG CAPSULE.DR PO SCH (09:20)
[2021-03-06 09:24] LABS: Albumin 2.6 g/dL (3.5-5.0); Calcium 8.4 mg/dL (8.4-10.2); Magnesium 1.9 mg/dL (1.6-2.3); Potassium 4.2 mmol/L (3.5-5.1); Total Bilirubin 0.3 mg/dL (0.2-1.3); Total Protein 5.3 g/dL (6.3-8.2)
[2021-03-06] MEDS: HYDROCORTISONE 1% CREAM 454 GM JAR TOPICAL SCH ×3 (09:27→20:18)
--- NOTE | 2021-03-06 09:30 | P.PN ---
Subjective Patient is seen in follow-up for acute kidney injury. She is being treated for left foot infection and underwent amputation of the third toe. She is on IV antibiotics. She received multiple treatments of ultrafiltration this admission. Justin catheter was discontinued this morning. She is on IV Lasix. Nonoliguric. Currently on 3 L nasal cannula. Vital signs are stable. General: The patient appeared well nourished and normally developed. HEENT: Head exam is unremarkable. LUNGS: Breath sounds decreased. HEART: Rate and Rhythm are regular. ABDOMEN: Soft, obese. EXTREMITITES: Trace edema. No drainage noted. Objective - Vital Signs Vital signs: Vital Signs Temp 98.2 F 03/06/21 04:00 Pulse 82 03/06/21 04:00 Resp 18 03/06/21 04:00 BP 120/49 03/06/21 04:00 Pulse Ox 95 03/06/21 04:00 Intake & Output 03/05/21 03/06/21 03/06/21 18:59 06:59 18:59 Intake Total 1500 Output Total 600 1700 Balance 900 -1700 Weight 81 kg Intake: Oral 1500 Output: Urine 600 1700 Other: Voiding Method Indwelling Catheter Indwelling Catheter # Bowel Movements 1 - Labs CBC & Chem 7: 03/06/21 08:32 03/05/21 08:24 Labs: Abnormal Lab Results - Last 24 Hours (Table) 03/05/21 03/05/21 03/05/21 Range/Units 08:24 08:24 11:56 WBC 11.6 H (3.8-10.6) k/uL RBC 3.31 L (3.80-5.40) m/uL Hgb 8.8 L (11.4-16.0) gm/dL Hct 26.3 L (34.0-46.0) % MCV 79.5 L (80.0-100.0) fL Plt Count 139 L (150-450) k/uL Neutrophils # 11.0 H (1.3-7.7) k/uL Lymphocytes # 0.3 L (1.0-4.8) k/uL Sodium 132 L (137-145) mmol/L BUN 72 H (7-17) mg/dL Creatinine 2.10 H (0.52-1.04) mg/dL Glucose 309 H (74-99) mg/dL POC Glucose (mg/dL) 267 H (75-99) mg/dL Calcium 8.1 L (8.4-10.2) mg/dL 03/05/21 03/05/21 03/06/21 Range/Units 16:43 20:22 06:38 WBC (3.8-10.6) k/uL RBC (3.80-5.40) m/uL Hgb (11.4-16.0) gm/dL Hct (34.0-46.0) % MCV (80.0-100.0) fL Plt Count (150-450) k/uL Neutrophils # (1.3-7.7) k/uL Lymphocytes # (1.0-4.8) k/uL Sodium (137-145) mmol/L BUN (7-17) mg/dL Creatinine (0.52-1.04) mg/dL Glucose (74-99) mg/dL POC Glucose (mg/dL) 357 H 394 H 220 H (75-99) mg/dL Calcium (8.4-10.2) mg/dL 03/06/21 Range/Units 08:32 WBC 10.7 H (3.8-10.6) k/uL RBC 3.08 L (3.80-5.40) m/uL Hgb 8.3 L (11.4-16.0) gm/dL Hct 24.2 L (34.0-46.0) % MCV 78.4 L (80.0-100.0) fL Plt Count (150-450) k/uL Neutrophils # 10.1 H (1.3-7.7) k/uL Lymphocytes # 0.4 L (1.0-4.8) k/uL Sodium (137-145) mmol/L BUN (7-17) mg/dL Creatinine (0.52-1.04) mg/dL Glucose (74-99) mg/dL POC Glucose (mg/dL) (75-99) mg/dL Calcium (8.4-10.2) mg/dL Assessment and Plan Plan: Assessment: 1. 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 Kidney biopsy also revealed acute tubular injury as well as diabetic changes. Serologies negative. Renal function stable - creatinine 2.1 yesterday. Baseline creatinine near 1. Urine eosinophils negative. No evidence of obstruction. 2. Hyperkalemia secondary to hyperglycemia. Also received Kayexalate. Improved. 3. Elevated BUN secondary to acute kidney injury as well as steroids. No evidence of GI bleed. Improved. 4. Left foot cellulitis with culture positive for staph aureus. Status post amputation of the left third toe. On antibiotics. 5. Benign hypertension. Controlled. 6. Diabetes mellitus. 7. Volume overload. Improved with diuresis and UF. 8. Acute hypoxic respiratory failure secondary to volume overload/?ARDS - on IV steroids. 9. Metabolic acidosis secondary to acute kidney injury. Improved. Plan: Maintain IV Lasix. Continue to monitor renal function and urine output. Justin catheter removed this morning.
--- NOTE | 2021-03-06 12:19 | PN ---
PROGRESS NOTE Patient has a history of acute on current renal failure. The patient is on dialysis. The patient had a left foot toe amputation done with infected toe. We did the ray amputation. We have been changing her dressing with Santyl daily. Base of the wound is clean. Plan is removal of the dialysis catheter. MMODL / IJN: [id number] /
--- NOTE | 2021-03-06 12:24 | P.PN ---
Subjective Progress Note Date: 03/06/21 Pt doing well today on 3L NC, sitting in bed comfortably. Oxygen 95%; CXR from 03/03 with slight improvement in aeration. Lasix 60mg IV TID with KVO fluids; Wt decreased to 81kg. BP stable, HRs in NSR. BS are uncontrolled 227-394 in last 24 hours; detemir 30U Daily/detemir 30U qHS + aspart 10U AC-TID + aspart LD SSI. Objective - Vital Signs Vital signs: Vital Signs Temp 97.4 F L 03/06/21 11:39 Pulse 87 03/06/21 11:39 Resp 18 03/06/21 11:39 BP 115/58 03/06/21 11:39 Pulse Ox 92 L 03/06/21 11:39 Intake & Output 03/05/21 03/06/21 03/06/21 18:59 06:59 18:59 Intake Total 1500 250 Output Total 600 1700 Balance 900 -1700 250 Weight 81 kg Intake: Oral 1500 250 Output: Urine 600 1700 Other: Voiding Method Indwelling Catheter Indwelling Catheter Indwelling Catheter # Bowel Movements 1 - Exam Gen: awake, alert HEENT: normocephalic, atraumatic, good hearing acuity, moist mucous membranes Resp: impaired air exchange, in moderate distress from dyspnea, diffuse crackles in posterior lung hair CVS: good distal perfusion x 4, RRR, no murmurs GI: soft, NTTP, ND : no SPT, no CVAT, méndez catheter is present MSK: 2+pitting edema, no clubbing Neuro: non-focal, moving all extremities Psych: cooperative, euthymic mood - Labs CBC & Chem 7: 03/06/21 08:32 03/06/21 08:32 Labs: Abnormal Lab Results - Last 24 Hours (Table) 03/05/21 03/05/21 03/06/21 Range/Units 16:43 20:22 06:38 WBC (3.8-10.6) k/uL RBC (3.80-5.40) m/uL Hgb (11.4-16.0) gm/dL Hct (34.0-46.0) % MCV (80.0-100.0) fL Neutrophils # (1.3-7.7) k/uL Lymphocytes # (1.0-4.8) k/uL Sodium (137-145) mmol/L BUN (7-17) mg/dL Creatinine (0.52-1.04) mg/dL Glucose (74-99) mg/dL POC Glucose (mg/dL) 357 H 394 H 220 H (75-99) mg/dL Total Protein (6.3-8.2) g/dL Albumin (3.5-5.0) g/dL 03/06/21 03/06/21 Range/Units 08:32 08:32 WBC 10.7 H (3.8-10.6) k/uL RBC 3.08 L (3.80-5.40) m/uL Hgb 8.3 L (11.4-16.0) gm/dL Hct 24.2 L (34.0-46.0) % MCV 78.4 L (80.0-100.0) fL Neutrophils # 10.1 H (1.3-7.7) k/uL Lymphocytes # 0.4 L (1.0-4.8) k/uL Sodium 134 L (137-145) mmol/L BUN 101 H* (7-17) mg/dL Creatinine 2.12 H (0.52-1.04) mg/dL Glucose 150 H (74-99) mg/dL POC Glucose (mg/dL) (75-99) mg/dL Total Protein 5.3 L (6.3-8.2) g/dL Albumin 2.6 L (3.5-5.0) g/dL Assessment and Plan Assessment: Acute renal failure due to 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 Metabolic acidosis -Nephrology recommendations: UF via iHD to start on 02/23, pulled 3L; repeat on 02/24, 02/26-03/04 -Lasix 60mg IV TID, increasing urine output -Oral sodium bicarb Acute hypoxic respiratory failure due to fluid overload, worsening ARDS secondary to HCAP - add back solumedrol, 60 mg every 6 hours - Pulm Recs - continue with diuresis, lasix - daptomycin and zosyn with improving WBC as of 02/23 -Narrowed to Zosyn on 02/24 - Nasal cannula at 3L - CXR; improving aeration Anemia -Patient's hemoglobin was normal on arrival. -I expect this is secondary to recurrent blood draws from prolonged hospital stay -Follow CBC -No signs of bleeding Wet gangrene of the left third toe, MSSA -Status post ray amputation -Vascular surgery recommendations -Infectious disease recommendations -Daptomycin completed #12 days -CK, LFTs level for toxicity monitoring -Now on Zosyn as above DM 2, hypoglycemia - levemir 15 U BID + aspart 3U AC-TID + aspart LD SSI -03/01: levemir 20U BID + aspart 6U AC-TID + aspart LD SSI -03/02-03/04: levemir 25U daily/levemir 30U qHS + aspart 6U AC-TID + aspart LD SSI -03/05-03/06: levemir 30U BID + aspart 10U AC-TID + aspart LD SSI - follow BS - A1C 8.1 Hypertension -Exacerbated by steroids -Continue with Norvasc -added hydralazine 25mg TID Vitamin B 6 deficiency - B complex replacement Hyperkalemia Hypocalcemia Metabolic acidosis Severe frontal headache, resolved Severe sepsis without septic shock
[2021-03-06 12:27] LABS: Glucose,Whole Blood 362 mg/dL (75-99)
[2021-03-06 14:16] VITALS: BMI 30.6
--- NOTE | 2021-03-06 16:27 | PCN ---
PROCEDURE NOTE PROCEDURE: Removal of the dialysis catheter right femoral approach. This patient had a history of renal failure and we placed a dialysis catheter for dialysis. DESCRIPTION OF PROCEDURE: The patient was seen in the room. Right groin was prepped and drapes applied in the usual sterile manner. The stitches were removed and the right femoral catheter was removed. Pressure was held. Pressure dressing applied to the incision site. PLAN: Bedrest for a few hours. MMODL / IJN: [id number] /
[2021-03-06 16:59] LABS: Glucose,Whole Blood 355 mg/dL (75-99)
[2021-03-06] MEDS: ACETAMINOPHEN TAB 325 MG TAB PO PRN (17:02)
[2021-03-06 17:30] LABS: Glucose,Whole Blood 330 mg/dL (75-99)
[2021-03-06 19:57] LABS: Glucose,Whole Blood 343 mg/dL (75-99)
--- NOTE | 2021-03-06 21:25 | PN ---
PROGRESS NOTE DATE OF SERVICE: 03/06/2021. REASON FOR FOLLOWUP: Left foot wound cellulitis and pneumonia. INTERVAL HISTORY: The patient is afebrile. The patient is breathing comfortably. The patient is currently down to 2 L nasal cannula. Denies any chest pain. No worsening cough. No abdominal pain. No pain to the left foot. EXAMINATION: Blood pressure 115/58, pulse of 87, temperature 97.4. She is 92% on 2 L nasal cannula. General description is a middle-aged female lying in bed in no distress. Respiratory system: Unlabored breathing, decreased breath sounds at bases. No wheeze. Heart S1, S2. Regular rate and rhythm. Abdomen soft, no tenderness. LABS: Hemoglobin 8.2, white count 10.7, BUN 101, creatinine 2.12 DIAGNOSTIC IMPRESSION AND PLAN: Patient with left foot wound with secondary MSSA and a component of pneumonia for which the patient is currently covered with Zosyn. The patient received adequate antibiotic therapy with no need for antibiotic on discharge. Local care to continue with [facility] and monitor clinical course closely. MMMARIA RL / IJN: [id number] /
[2021-03-07] MEDS: FUROSEMIDE 10 MG/ML 10 ML VIAL IV SCH ×3 (00:04→21:57)
[2021-03-07] MEDS: HEPARIN SODIUM,PORCINE/PF 5,000 UNIT/0.5 ML SYRINGE SQ SCH ×4 (00:05→23:31)
[2021-03-07] MEDS: methylPREDNISolone SOD SUCCI 125 MG/2 ML VIAL IV SCH ×5 (00:05→18:32)
[2021-03-07] MEDS: PIPERACILLIN-TAZOBACTAM 3.375 GM in SODIUM CHLORIDE 0.9% 100 ML IVPB SCH ×3 (03:30→23:31)
[2021-03-07 07:13] LABS: Glucose,Whole Blood 312 mg/dL (75-99)
[2021-03-07] MEDS: INSULIN DETEMIR (LEVEMIR) 100 UNIT/ML SYR SQ SCH ×2 (07:14→21:56)
[2021-03-07] MEDS: INSULIN ASPART (NovoLOG) 100 UNIT/ML VIAL SQ SCH ×7 (07:14→21:02)
[2021-03-07] MEDS: CYANOCOBALAMIN 500 MCG TAB PO SCH (08:17)
[2021-03-07] MEDS: HYDROCORTISONE 1% CREAM 454 GM JAR TOPICAL SCH ×3 (08:17→22:32)
[2021-03-07] MEDS: DULoxetine HCL 30 MG CAPSULE.DR PO SCH (08:17)
[2021-03-07] MEDS: COLLAGENASE 250 UNIT/GM OINTMENT 30 GM TUBE TOPICAL SCH (08:17)
[2021-03-07] MEDS: PREGABALIN 75 MG CAP PO SCH ×2 (08:17→21:56)
[2021-03-07] MEDS: FOLIC ACID 1 MG TAB PO SCH (08:17)
[2021-03-07] MEDS: FAMOTIDINE 20 MG TAB PO SCH (08:17)
[2021-03-07 08:22] LABS: Calcium 8.4 mg/dL (8.4-10.2); Magnesium 1.9 mg/dL (1.6-2.3); Potassium 4.6 mmol/L (3.5-5.1)
--- NOTE | 2021-03-07 09:39 | P.PN ---
Subjective Patient is seen in follow-up for acute kidney injury. She is being treated for left foot infection and underwent amputation of the third toe. She is on IV antibiotics. She received multiple treatments of ultrafiltration this admission. Justin catheter was discontinued on March 06. She is on IV Lasix. Nonoliguric. Currently on 2 L nasal cannula. Vital signs are stable. General: The patient appeared well nourished and normally developed. HEENT: Head exam is unremarkable. LUNGS: Breath sounds decreased. HEART: Rate and Rhythm are regular. ABDOMEN: Soft, obese. EXTREMITITES: Trace edema. No drainage noted. Objective - Vital Signs Vital signs: Vital Signs Temp 98.5 F 03/07/21 03:55 Pulse 86 03/07/21 03:55 Resp 18 03/07/21 03:55 BP 161/74 03/07/21 03:55 Pulse Ox 93 L 03/07/21 03:55 Intake & Output 03/06/21 03/07/21 03/07/21 18:59 06:59 18:59 Intake Total 615 240 Output Total 1400 1600 Balance -785 -1360 Weight 81 kg 85.5 kg Intake: IV 240 0.9 240 Oral 615 Output: Urine 1400 1600 Other: Voiding Method Indwelling Catheter Indwelling Catheter # Bowel Movements 1 - Labs CBC & Chem 7: 03/06/21 08:32 03/07/21 07:29 Labs: Abnormal Lab Results - Last 24 Hours (Table) 03/06/21 03/06/21 03/06/21 Range/Units 12:25 16:57 17:17 Sodium (137-145) mmol/L BUN (7-17) mg/dL Creatinine (0.52-1.04) mg/dL Glucose (74-99) mg/dL POC Glucose (mg/dL) 362 H 355 H 330 H (75-99) mg/dL 03/06/21 03/07/21 03/07/21 Range/Units 19:55 07:11 07:29 Sodium 133 L (137-145) mmol/L BUN 113 H* (7-17) mg/dL Creatinine 2.18 H (0.52-1.04) mg/dL Glucose 285 H (74-99) mg/dL POC Glucose (mg/dL) 343 H 312 H (75-99) mg/dL Assessment and Plan Plan: Assessment: 1. 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 Kidney biopsy also revealed acute tubular injury as well as diabetic changes. Serologies negative. Renal function stable - creatinine 2.18. Baseline creatinine near 1. Urine eosinophils negative. No evidence of obstruction. 2. Hyperkalemia secondary to hyperglycemia. Also received Kayexalate. Improved. 3. Elevated BUN secondary to acute kidney injury as well as steroids. No evidence of GI bleed. Improved. 4. Left foot cellulitis with culture positive for staph aureus. Status post amputation of the left third toe. On antibiotics. 5. Benign hypertension 6. Diabetes mellitus. 7. Volume overload. Improved with diuresis and UF. 8. Acute hypoxic respiratory failure secondary to volume overload/?ARDS - on IV steroids. 9. Metabolic acidosis secondary to acute kidney injury. Improved. Plan: Maintain IV Lasix - decrease to 60 mg IV twice a day. Continue to monitor renal function and urine output. Stop midodrine.
[2021-03-07 12:06] LABS: Glucose,Whole Blood 254 mg/dL (75-99)
--- NOTE | 2021-03-07 13:26 | P.PN ---
Subjective Progress Note Date: 03/07/21 Pt doing well today on 2L NC, sitting in bed comfortably. Oxygen 95%; CXR from 03/03 with slight improvement in aeration. Lasix 60mg IV TID with KVO fluids. BP stable, HRs in NSR. BS are uncontrolled 220-362 in last 24 hours; detemir 30U Daily/detemir 30U qHS + aspart 10U AC-TID + aspart LD SSI. Objective - Vital Signs Vital signs: Vital Signs Temp 98.0 F 03/07/21 10:56 Pulse 80 03/07/21 10:56 Resp 18 03/07/21 10:58 BP 113/86 03/07/21 10:56 Pulse Ox 88 L 03/07/21 10:58 Intake & Output 03/06/21 03/07/21 03/07/21 18:59 06:59 18:59 Intake Total 615 240 Output Total 1400 1600 2000 Balance -998 -0564 -2000 Weight 81 kg 85.5 kg Intake: IV 240 0.9 240 Oral 615 Output: Urine 1400 1600 2000 Other: Voiding Method Indwelling Catheter Indwelling Catheter Indwelling Catheter # Bowel Movements 1 1 - Exam Gen: awake, alert HEENT: normocephalic, atraumatic, good hearing acuity, moist mucous membranes Resp: impaired air exchange, in moderate distress from dyspnea, diffuse crackles in posterior lung hair CVS: good distal perfusion x 4, RRR, no murmurs GI: soft, NTTP, ND : no SPT, no CVAT, méndez catheter is present MSK: 2+pitting edema, no clubbing Neuro: non-focal, moving all extremities Psych: cooperative, euthymic mood - Labs CBC & Chem 7: 03/06/21 08:32 03/07/21 07:29 Labs: Abnormal Lab Results - Last 24 Hours (Table) 03/06/21 03/06/21 03/06/21 Range/Units 16:57 17:17 19:55 Sodium (137-145) mmol/L BUN (7-17) mg/dL Creatinine (0.52-1.04) mg/dL Glucose (74-99) mg/dL POC Glucose (mg/dL) 355 H 330 H 343 H (75-99) mg/dL 03/07/21 03/07/21 03/07/21 Range/Units 07:11 07:29 11:52 Sodium 133 L (137-145) mmol/L BUN 113 H* (7-17) mg/dL Creatinine 2.18 H (0.52-1.04) mg/dL Glucose 285 H (74-99) mg/dL POC Glucose (mg/dL) 312 H 254 H (75-99) mg/dL Assessment and Plan Assessment: Acute renal failure due to 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 -I expect this is secondary to recurrent blood draws from prolonged hospital stay -Follow CBC -No signs of bleeding Wet gangrene of the left third toe, MSSA -Status post ray amputation -Vascular surgery recommendations -Infectious disease recommendations -Daptomycin completed #12 days -CK, LFTs level for toxicity monitoring -Zosyn completed on 03/07 DM 2, hypoglycemia - levemir 15 U BID + aspart 3U AC-TID + aspart LD SSI -03/01: levemir 20U BID + aspart 6U AC-TID + aspart LD SSI -03/02-03/04: levemir 25U daily/levemir 30U qHS + aspart 6U AC-TID + aspart LD SSI -03/05-03/06: levemir 30U BID + aspart 10U AC-TID + aspart LD SSI - follow BS - A1C 8.1 Hypertension -Exacerbated by steroids -Continue with Norvasc -added hydralazine 25mg TID Vitamin B 6 deficiency - B complex replacement Hyperkalemia Hypocalcemia Metabolic acidosis Severe frontal headache, resolved Severe sepsis without septic shock
[2021-03-07 17:21] LABS: Glucose,Whole Blood 478 mg/dL (75-99)
--- NOTE | 2021-03-07 18:30 | PN ---
PROGRESS NOTE DATE OF SERVICE: 03/07/2021 REASON FOR FOLLOWUP: Left foot wound cellulitis and pneumonia. INTERVAL HISTORY: The patient is afebrile. The patient is feeling better, breathing comfortably. She is currently on 1 L nasal cannula. Denies any chest pain or any worsening cough. No abdominal pain or pain to the left foot. PHYSICAL EXAMINATION: Blood pressure 125/60, pulse of 84, temperature 98.9. She is 93% on 1 L nasal cannula. GENERAL DESCRIPTION: General description is a middle-aged female up in the chair in no distress. RESPIRATORY SYSTEM: Unlabored breathing. Decreased breath sounds at the bases. No wheeze. HEART: S1, S2. Regular rate and rhythm. ABDOMEN: Soft. No tenderness. LABS: Creatinine is 2.18. DIAGNOSTIC IMPRESSION AND PLAN: Patient with left foot cellulitis and abscess followed by pneumonia; however, she has received more than adequate antibiotic therapy, which can be discontinued on discharge. Local care with Santyl and close outpatient followup. Continue supportive care. MMODL / IJN: [id number] / REJI
[2021-03-07 20:33] LABS: Glucose,Whole Blood 570 mg/dL (75-99)
[2021-03-07] MEDS ORDERED: INSULIN ASPART (NovoLOG) 100 UNIT/ML VIAL SQ ONE (20:40)
[2021-03-08] MEDS: methylPREDNISolone SOD SUCCI 125 MG/2 ML VIAL IV SCH ×2 (06:26→18:04)
[2021-03-08 07:30] LABS: Glucose,Whole Blood 212 mg/dL (75-99)
[2021-03-08] MEDS: INSULIN ASPART (NovoLOG) 100 UNIT/ML VIAL SQ SCH ×7 (07:32→20:19)
[2021-03-08] MEDS: INSULIN DETEMIR (LEVEMIR) 100 UNIT/ML SYR SQ SCH ×2 (07:32→21:13)
[2021-03-08 08:15] LABS: Calcium 8.5 mg/dL (8.4-10.2); Magnesium 1.9 mg/dL (1.6-2.3); Potassium 4.9 mmol/L (3.5-5.1)
[2021-03-08] MEDS: HEPARIN SODIUM,PORCINE/PF 5,000 UNIT/0.5 ML SYRINGE SQ SCH ×3 (08:22→23:05)
[2021-03-08] MEDS: PIPERACILLIN-TAZOBACTAM 3.375 GM in SODIUM CHLORIDE 0.9% 100 ML IVPB SCH ×3 (08:23→23:04)
[2021-03-08] MEDS: COLLAGENASE 250 UNIT/GM OINTMENT 30 GM TUBE TOPICAL SCH (08:24)
[2021-03-08] MEDS: HYDROCORTISONE 1% CREAM 454 GM JAR TOPICAL SCH ×3 (08:24→20:35)
[2021-03-08] MEDS: FOLIC ACID 1 MG TAB PO SCH (08:25)
[2021-03-08] MEDS: DULoxetine HCL 30 MG CAPSULE.DR PO SCH (08:25)
[2021-03-08] MEDS: FUROSEMIDE 10 MG/ML 10 ML VIAL IV SCH ×2 (08:25→20:36)
[2021-03-08] MEDS: CYANOCOBALAMIN 500 MCG TAB PO SCH (08:25)
[2021-03-08] MEDS: PREGABALIN 75 MG CAP PO SCH ×2 (08:25→20:34)
[2021-03-08] MEDS: FAMOTIDINE 20 MG TAB PO SCH (08:25)
--- NOTE | 2021-03-08 10:28 | P.PN ---
Subjective Progress Note Date: 03/08/21 Pt doing well today on 1L NC, sitting in bed comfortably. Oxygen 95%; CXR from 03/03 with slight improvement in aeration. Lasix 60mg IV BID with KVO fluids. BP stable, HRs in NSR. BS are uncontrolled 212-570 in last 24 hours; detemir 30U Daily/detemir 30U qHS + aspart 10U AC-TID + aspart LD SSI. Objective - Vital Signs Vital signs: Vital Signs Temp 97.4 F L 03/08/21 08:00 Pulse 87 03/08/21 08:00 Resp 18 03/08/21 08:00 BP 114/55 03/08/21 08:00 Pulse Ox 92 L 03/08/21 08:00 Intake & Output 03/07/21 03/08/21 03/08/21 18:59 06:59 18:59 Intake Total 1044 720 240 Output Total 2600 1900 Balance -1556 -1180 240 Weight 86.5 kg Intake: IV 720 0.9 720 Oral 1044 240 Output: Urine 2600 1900 Other: Voiding Method Indwelling Catheter Indwelling Catheter Indwelling Catheter # Bowel Movements 0 - Exam Gen: awake, alert HEENT: normocephalic, atraumatic, good hearing acuity, moist mucous membranes Resp: impaired air exchange, in moderate distress from dyspnea, diffuse crackles in posterior lung hair CVS: good distal perfusion x 4, RRR, no murmurs GI: soft, NTTP, ND : no SPT, no CVAT, méndez catheter is present MSK: 2+pitting edema, no clubbing Neuro: non-focal, moving all extremities Psych: cooperative, euthymic mood - Labs CBC & Chem 7: 03/06/21 08:32 03/08/21 07:29 Labs: Abnormal Lab Results - Last 24 Hours (Table) 03/07/21 03/07/21 03/07/21 Range/Units 11:52 17:20 20:28 Sodium (137-145) mmol/L BUN (7-17) mg/dL Creatinine (0.52-1.04) mg/dL Glucose (74-99) mg/dL POC Glucose (mg/dL) 254 H 478 H 570 H (75-99) mg/dL 03/08/21 03/08/21 Range/Units 07:28 07:29 Sodium 132 L (137-145) mmol/L BUN 109 H* (7-17) mg/dL Creatinine 2.01 H (0.52-1.04) mg/dL Glucose 208 H (74-99) mg/dL POC Glucose (mg/dL) 212 H (75-99) mg/dL Assessment and Plan Assessment: Acute renal failure due to 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 -I expect this is secondary to recurrent blood draws from prolonged hospital stay -Follow CBC -No signs of bleeding Wet gangrene of the left third toe, MSSA -Status post ray amputation -Vascular surgery recommendations -Infectious disease recommendations -Daptomycin completed #12 days -CK, LFTs level for toxicity monitoring -Zosyn completed on 03/07 DM 2, hypoglycemia - levemir 15 U BID + aspart 3U AC-TID + aspart LD SSI -03/01: levemir 20U BID + aspart 6U AC-TID + aspart LD SSI -03/02-03/04: levemir 25U daily/levemir 30U qHS + aspart 6U AC-TID + aspart LD SSI -03/05-03/06: levemir 30U BID + aspart 10U AC-TID + aspart LD SSI - follow BS - A1C 8.1 Hypertension -Exacerbated by steroids -Continue with Norvasc -added hydralazine 25mg TID Vitamin B 6 deficiency - B complex replacement Hyperkalemia Hypocalcemia Metabolic acidosis Severe frontal headache, resolved Severe sepsis without septic shock
--- NOTE | 2021-03-08 11:16 | P.PN ---
Subjective Patient is seen in follow-up for acute kidney injury. She is being treated for left foot infection and underwent amputation of the third toe. She is on IV antibiotics. She received multiple treatments of ultrafiltration this admission. Justin catheter was discontinued on March 06. She is on IV Lasix. Nonoliguric. Currently on 1 L nasal cannula. No active complaints. Vital signs are stable. General: The patient appeared well nourished and normally developed. HEENT: Head exam is unremarkable. LUNGS: Breath sounds decreased. HEART: Rate and Rhythm are regular. ABDOMEN: Soft, obese. EXTREMITITES: Trace edema. No drainage noted. Objective - Vital Signs Vital signs: Vital Signs Temp 97.4 F L 03/08/21 08:00 Pulse 87 03/08/21 08:00 Resp 18 03/08/21 08:00 BP 114/55 03/08/21 08:00 Pulse Ox 92 L 03/08/21 08:00 Intake & Output 03/07/21 03/08/21 03/08/21 18:59 06:59 18:59 Intake Total 1044 720 240 Output Total 2600 1900 Balance -1556 -1180 240 Weight 86.5 kg Intake: IV 720 0.9 720 Oral 1044 240 Output: Urine 2600 1900 Other: Voiding Method Indwelling Catheter Indwelling Catheter Indwelling Catheter # Bowel Movements 0 - Labs CBC & Chem 7: 03/06/21 08:32 03/08/21 07:29 Labs: Abnormal Lab Results - Last 24 Hours (Table) 03/07/21 03/07/21 03/07/21 Range/Units 11:52 17:20 20:28 Sodium (137-145) mmol/L BUN (7-17) mg/dL Creatinine (0.52-1.04) mg/dL Glucose (74-99) mg/dL POC Glucose (mg/dL) 254 H 478 H 570 H (75-99) mg/dL 03/08/21 03/08/21 Range/Units 07:28 07:29 Sodium 132 L (137-145) mmol/L BUN 109 H* (7-17) mg/dL Creatinine 2.01 H (0.52-1.04) mg/dL Glucose 208 H (74-99) mg/dL POC Glucose (mg/dL) 212 H (75-99) mg/dL Assessment and Plan Plan: Assessment: 1. 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 Kidney biopsy also revealed acute tubular injury as well as diabetic changes. Serologies negative. Renal function stable - creatinine 2.01. Baseline creatinine near 1. Urine eosinophils negative. No evidence of obstruction. 2. Hyperkalemia secondary to hyperglycemia. Also received Kayexalate. Improved. 3. Elevated BUN secondary to acute kidney injury as well as steroids. No evidence of GI bleed. Improved. 4. Left foot cellulitis with culture positive for staph aureus. Status post amputation of the left third toe. On antibiotics. 5. Benign hypertension 6. Diabetes mellitus. 7. Volume overload. Improved with diuresis and UF. 8. Acute hypoxic respiratory failure secondary to volume overload/?ARDS - on IV steroids. 9. Metabolic acidosis secondary to acute kidney injury. Improved. Plan: Maintain IV Lasix - transition to oral diuretics tomorrow. Continue to monitor renal function and urine output.
[2021-03-08 11:58] LABS: Glucose,Whole Blood 218 mg/dL (75-99)
[2021-03-08 16:35] LABS: Glucose,Whole Blood 464 mg/dL (75-99)
--- NOTE | 2021-03-08 17:16 | PN ---
PROGRESS NOTE Cecelia has infected gangrene left foot third toe. Patient went for ray amputation. We have been treating with local wound care using Santyl cream. Patient also has history of chronic renal failure. She had dialysis. We have removed the dialysis catheter. They are watching. If the patient goes home, patient will be followed in the wound clinic. We will continue the Santyl cream. MMFREDDY / ELYSIAN: [id number] /
[2021-03-08 20:08] LABS: Glucose,Whole Blood 479 mg/dL (75-99)
--- NOTE | 2021-03-08 21:16 | P.PN ---
Progress Note - Text Progress Note Date: 03/08/21 REASON FOR FOLLOWUP: Left foot wound cellulitis and pneumonia. INTERVAL HISTORY: The patient remains to be afebrile. The patient is feeling better, breathing comfortably. She is currently on 1 L nasal cannula. Denies any chest pain or any worsening cough. No abdominal pain or pain to the left foot. PHYSICAL EXAMINATION: Blood pressure 120/60, pulse of 80, temperature 98.9. She is 93% on 1 L nasal cannula. GENERAL DESCRIPTION: General description is a middle-aged female up in the chair in no distress. RESPIRATORY SYSTEM: Unlabored breathing. Decreased breath sounds at the bases. No wheeze. HEART: S1, S2. Regular rate and rhythm. ABDOMEN: Soft. No tenderness. Left foot wound is dressed , no drainage on dressing LABS: reviewed DIAGNOSTIC IMPRESSION AND PLAN: Patient with left foot MSSA cellulitis and abscess followed by pneumonia ; however, she has received more than adequate antibiotic therapy, which can be discontinued on discharge. currently on Zosyn and kidney function is improving Local care with Santyl and close outpatient followup. Continue supportive care.
[2021-03-08] MEDS ORDERED: INSULIN ASPART (NovoLOG) 100 UNIT/ML VIAL SQ ONE (21:55)
[2021-03-09 06:46] LABS: Glucose,Whole Blood 123 mg/dL (75-99)
[2021-03-09] MEDS: INSULIN ASPART (NovoLOG) 100 UNIT/ML VIAL SQ SCH ×7 (06:50→21:08)
[2021-03-09] MEDS: INSULIN DETEMIR (LEVEMIR) 100 UNIT/ML SYR SQ SCH ×2 (06:53→21:09)
[2021-03-09] MEDS: methylPREDNISolone SOD SUCCI 125 MG/2 ML VIAL IV SCH (06:54)
[2021-03-09 07:03] LABS: Glucose,Whole Blood 114 mg/dL (75-99)
[2021-03-09] MEDS: PIPERACILLIN-TAZOBACTAM 3.375 GM in SODIUM CHLORIDE 0.9% 100 ML IVPB SCH (08:20)
[2021-03-09] MEDS: HEPARIN SODIUM,PORCINE/PF 5,000 UNIT/0.5 ML SYRINGE SQ SCH ×3 (08:20→23:29)
[2021-03-09] MEDS: CYANOCOBALAMIN 500 MCG TAB PO SCH (08:21)
[2021-03-09] MEDS: COLLAGENASE 250 UNIT/GM OINTMENT 30 GM TUBE TOPICAL SCH (08:21)
[2021-03-09] MEDS: FOLIC ACID 1 MG TAB PO SCH (08:21)
[2021-03-09] MEDS: FAMOTIDINE 20 MG TAB PO SCH (08:21)
[2021-03-09] MEDS: PREGABALIN 75 MG CAP PO SCH ×2 (08:21→21:08)
[2021-03-09] MEDS: FUROSEMIDE 10 MG/ML 10 ML VIAL IV SCH (08:21)
[2021-03-09] MEDS: DULoxetine HCL 30 MG CAPSULE.DR PO SCH (08:21)
[2021-03-09] MEDS: HYDROCORTISONE 1% CREAM 454 GM JAR TOPICAL SCH ×3 (08:22→21:09)
[2021-03-09 09:05] LABS: Calcium 8.6 mg/dL (8.4-10.2); Magnesium 1.9 mg/dL (1.6-2.3); Potassium 4.7 mmol/L (3.5-5.1)
--- NOTE | 2021-03-09 10:20 | P.PN ---
Subjective Progress Note Date: 03/09/21 Pt doing well today on 1L NC, sitting in bed comfortably. Oxygen 96%, Lasix 60mg IV BID with KVO fluids. BP stable, HRs in NSR. BS are uncontrolled 114- 464 in last 24 hours; detemir 30U Daily/detemir 30U qHS + aspart 10U AC-TID + aspart LD SSI. Objective - Vital Signs Vital signs: Vital Signs Temp 98.0 F 03/09/21 08:00 Pulse 87 03/09/21 08:00 Resp 16 03/09/21 08:00 BP 118/56 03/09/21 08:00 Pulse Ox 96 03/09/21 08:00 Intake & Output 03/08/21 03/09/21 03/09/21 18:59 06:59 18:59 Intake Total 420 Output Total 1300 2250 Balance -880 -2250 Weight 81.1 kg Intake: Oral 420 Output: Urine 1300 2250 Other: Voiding Method Indwelling Catheter Indwelling Catheter Indwelling Catheter # Bowel Movements 1 1 1 - Exam Gen: awake, alert HEENT: normocephalic, atraumatic, good hearing acuity, moist mucous membranes Resp: impaired air exchange, in moderate distress from dyspnea, diffuse crackles in posterior lung hair CVS: good distal perfusion x 4, RRR, no murmurs GI: soft, NTTP, ND : no SPT, no CVAT, méndez catheter is present MSK: 2+pitting edema, no clubbing Neuro: non-focal, moving all extremities Psych: cooperative, euthymic mood - Labs CBC & Chem 7: 03/06/21 08:32 03/09/21 08:05 Labs: Abnormal Lab Results - Last 24 Hours (Table) 03/08/21 03/08/21 03/08/21 Range/Units 11:56 16:34 20:07 Sodium (137-145) mmol/L BUN (7-17) mg/dL Creatinine (0.52-1.04) mg/dL Glucose (74-99) mg/dL POC Glucose (mg/dL) 218 H 464 H 479 H (75-99) mg/dL 03/09/21 03/09/21 03/09/21 Range/Units 06:43 07:02 08:05 Sodium 135 L (137-145) mmol/L BUN 103 H* (7-17) mg/dL Creatinine 2.00 H (0.52-1.04) mg/dL Glucose 133 H (74-99) mg/dL POC Glucose (mg/dL) 123 H 114 H (75-99) mg/dL Assessment and Plan Assessment: Acute renal failure due to 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 Metabolic acidosis -Nephrology recommendations: UF via iHD to start on 02/23, pulled 3L; repeat on 02/24, 02/26-03/04 -Lasix 60mg IV BID, transition to oral lasix on 03/10 -Oral sodium bicarb Acute hypoxic respiratory failure due to fluid overload, worsening ARDS secondary to HCAP - add back solumedrol, 60 mg every 6 hours 03/07, tapered to 60 q12 03/09, tapered to 60 daily - Pulm Recs - continue with diuresis, lasix - daptomycin and zosyn with improving WBC as of 02/23 -Narrowed to Zosyn on 02/24; d/c'd abx on 03/09 - Nasal cannula at 1L, wean as able DM 2, uncontrolled - levemir 15 U BID + aspart 3U AC-TID + aspart LD SSI -03/01: levemir 20U BID + aspart 6U AC-TID + aspart LD SSI -03/02-03/04: levemir 25U daily/levemir 30U qHS + aspart 6U AC-TID + aspart LD SSI -03/05-03/08: levemir 30U BID + aspart 10U AC-TID + aspart LD SSI -03/09: levemir 30U daily/levemir 20U qHS + aspart 10U AC-TID + aspart LD SSI (downtitrate with steroids) - follow BS - A1C 8.1 Hypertension -Exacerbated by steroids -Continue with Norvasc -added hydralazine 25mg TID Vitamin B 6 deficiency - B complex replacement Wet gangrene of the left third toe, MSSA, resolved -Status post ray amputation -Vascular surgery recommendations -Infectious disease recommendations -Daptomycin completed #12 days -CK, LFTs level for toxicity monitoring -Zosyn completed on 03/09 Anemia, stable -Patient's hemoglobin was normal on arrival. -I expect this is secondary to recurrent blood draws from prolonged hospital stay -Follow CBC -No signs of bleeding Hyperkalemia Hypocalcemia Metabolic acidosis Severe frontal headache, resolved Severe sepsis without septic shock
--- NOTE | 2021-03-09 11:00 | P.PN ---
Subjective Patient is seen in follow-up for acute kidney injury. She is being treated for left foot infection and underwent amputation of the third toe. She is on IV antibiotics. She received multiple treatments of ultrafiltration this admission. Justin catheter was discontinued on March 06. She is on IV Lasix. Nonoliguric. Currently on 1 L nasal cannula. No active complaints. No changes overnight. Vital signs are stable. General: The patient appeared well nourished and normally developed. HEENT: Head exam is unremarkable. LUNGS: Breath sounds decreased. HEART: Rate and Rhythm are regular. ABDOMEN: Soft, obese. EXTREMITITES: Trace edema. No drainage noted. Objective - Vital Signs Vital signs: Vital Signs Temp 98.0 F 03/09/21 08:00 Pulse 87 03/09/21 08:00 Resp 16 03/09/21 08:00 BP 118/56 03/09/21 08:00 Pulse Ox 96 03/09/21 08:00 Intake & Output 03/08/21 03/09/21 03/09/21 18:59 06:59 18:59 Intake Total 420 Output Total 1300 2250 Balance -880 -2250 Weight 81.1 kg Intake: Oral 420 Output: Urine 1300 2250 Other: Voiding Method Indwelling Catheter Indwelling Catheter Indwelling Catheter # Bowel Movements 1 1 1 - Labs CBC & Chem 7: 03/06/21 08:32 03/09/21 08:05 Labs: Abnormal Lab Results - Last 24 Hours (Table) 03/08/21 03/08/21 03/08/21 Range/Units 11:56 16:34 20:07 Sodium (137-145) mmol/L BUN (7-17) mg/dL Creatinine (0.52-1.04) mg/dL Glucose (74-99) mg/dL POC Glucose (mg/dL) 218 H 464 H 479 H (75-99) mg/dL 03/09/21 03/09/21 03/09/21 Range/Units 06:43 07:02 08:05 Sodium 135 L (137-145) mmol/L BUN 103 H* (7-17) mg/dL Creatinine 2.00 H (0.52-1.04) mg/dL Glucose 133 H (74-99) mg/dL POC Glucose (mg/dL) 123 H 114 H (75-99) mg/dL Assessment and Plan Plan: Assessment: 1. 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 Kidney biopsy also revealed acute tubular injury as well as diabetic changes. Serologies negative. Renal function stable - creatinine 2.0. Baseline creatinine near 1. Urine eosinophils negative. No evidence of obstruction. 2. Hyperkalemia secondary to hyperglycemia. Also received Kayexalate. Improved. 3. Elevated BUN secondary to acute kidney injury as well as steroids. No evidence of GI bleed. Trending down. 4. Left foot cellulitis with culture positive for staph aureus. Status post amputation of the left third toe. On antibiotics. 5. Benign hypertension. Controlled. 6. Diabetes mellitus. 7. Volume overload. Improved with diuresis and UF. 8. Acute hypoxic respiratory failure secondary to volume overload/?ARDS - improved. 9. Metabolic acidosis secondary to acute kidney injury. Improved. Plan: Change Lasix to oral. Continue to monitor renal function and urine output.
[2021-03-09 12:06] LABS: Glucose,Whole Blood 243 mg/dL (75-99)
--- NOTE | 2021-03-09 15:25 | PN ---
PROGRESS NOTE DATE OF SERVICE: 03/09/2021 REASON FOR FOLLOWUP: Left foot wound abscess, cellulitis and pneumonia. INTERVAL HISTORY: The patient is afebrile. The patient is breathing comfortably. The patient denies having any chest pain or shortness of breath cough. No abdominal pain or pain to the left foot. PHYSICAL EXAMINATION: Blood pressure 133/71, pulse of 90, temperature of 98. She is 93% on 1 L nasal cannula. GENERAL DESCRIPTION: General description is a middle-aged female lying in bed in no distress. RESPIRATORY SYSTEM: Unlabored breathing. Clear to auscultation anteriorly. HEART: S1, S2. Regular rate and rhythm. ABDOMEN: Soft. No tenderness. LABS: BUN of 103, creatinine 2.0. DIAGNOSTIC IMPRESSION AND PLAN: Patient with left foot wound and cellulitis, a component of pneumonia. Has received adequate antibiotics. Zosyn has been discontinued. Will monitor patient closely. Local care to continue with Santyl. Continue supportive care. MMODL / IJN: [id number] /
[2021-03-09] MEDS: FUROSEMIDE 20 MG TAB PO SCH (16:23)
[2021-03-09 16:58] LABS: Glucose,Whole Blood 249 mg/dL (75-99)
[2021-03-09 20:44] LABS: Glucose,Whole Blood 233 mg/dL (75-99)
[2021-03-10] MEDS: INSULIN ASPART (NovoLOG) 100 UNIT/ML VIAL SQ SCH ×7 (06:49→20:33)
[2021-03-10] MEDS: INSULIN DETEMIR (LEVEMIR) 100 UNIT/ML SYR SQ SCH ×2 (06:57→20:33)
[2021-03-10 06:59] LABS: Glucose,Whole Blood 143 mg/dL (75-99)
[2021-03-10 08:41] LABS: Calcium 8.4 mg/dL (8.4-10.2); Magnesium 1.9 mg/dL (1.6-2.3); Potassium 4.9 mmol/L (3.5-5.1)
[2021-03-10] MEDS: FUROSEMIDE 20 MG TAB PO SCH ×2 (09:00→16:58)
[2021-03-10] MEDS: FOLIC ACID 1 MG TAB PO SCH (09:01)
[2021-03-10] MEDS: FAMOTIDINE 20 MG TAB PO SCH (09:01)
[2021-03-10] MEDS: PREGABALIN 75 MG CAP PO SCH ×2 (09:01→20:33)
[2021-03-10] MEDS: CYANOCOBALAMIN 500 MCG TAB PO SCH (09:01)
[2021-03-10] MEDS: methylPREDNISolone SOD SUCCI 125 MG/2 ML VIAL IV SCH (09:01)
[2021-03-10] MEDS: DULoxetine HCL 30 MG CAPSULE.DR PO SCH (09:01)
[2021-03-10] MEDS: COLLAGENASE 250 UNIT/GM OINTMENT 30 GM TUBE TOPICAL SCH (09:02)
[2021-03-10] MEDS: HEPARIN SODIUM,PORCINE/PF 5,000 UNIT/0.5 ML SYRINGE SQ SCH ×3 (09:02→23:33)
[2021-03-10] MEDS: HYDROCORTISONE 1% CREAM 454 GM JAR TOPICAL SCH ×3 (09:03→20:34)
--- NOTE | 2021-03-10 11:35 | P.PN ---
Subjective Patient is seen in follow-up for acute kidney injury. She is being treated for left foot infection and underwent amputation of the third toe. She received multiple treatments of ultrafiltration this admission. Justin catheter was discontinued on March 06. She is on po Lasix. Nonoliguric. Currently on 2 L nasal cannula. No active complaints. No changes overnight. Vital signs are stable. General: The patient appeared well nourished and normally developed. HEENT: Head exam is unremarkable. LUNGS: Breath sounds decreased. HEART: Rate and Rhythm are regular. ABDOMEN: Soft, obese. EXTREMITITES: Trace edema. No drainage noted. Objective - Vital Signs Vital signs: Vital Signs Temp 98.8 F 03/10/21 08:54 Pulse 98 03/10/21 08:54 Resp 16 03/10/21 08:54 BP 99/56 03/10/21 08:54 Pulse Ox 93 L 03/10/21 08:54 Intake & Output 03/09/21 03/10/21 03/10/21 18:59 06:59 18:59 Intake Total 0 240 360 Output Total 1575 1200 Balance -1575 240 -840 Weight 82.2 kg Intake: Oral 0 240 360 Output: Urine 1575 1200 Uretheral (Magallanes) 1200 Other: Voiding Method Indwelling Catheter Indwelling Catheter Indwelling Catheter # Bowel Movements 1 - Labs CBC & Chem 7: 03/06/21 08:32 03/10/21 08:11 Labs: Abnormal Lab Results - Last 24 Hours (Table) 03/09/21 03/09/21 03/09/21 Range/Units 12:03 16:56 20:16 Sodium (137-145) mmol/L BUN (7-17) mg/dL Creatinine (0.52-1.04) mg/dL Glucose (74-99) mg/dL POC Glucose (mg/dL) 243 H 249 H 233 H (75-99) mg/dL 03/10/21 03/10/21 Range/Units 06:47 08:11 Sodium 134 L (137-145) mmol/L BUN 111 H* (7-17) mg/dL Creatinine 2.06 H (0.52-1.04) mg/dL Glucose 125 H (74-99) mg/dL POC Glucose (mg/dL) 143 H (75-99) mg/dL Assessment and Plan Plan: Assessment: 1. 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 Kidney biopsy also revealed acute tubular injury as well as diabetic changes. Serologies negative. Renal function stable - creatinine 2.06. Baseline creatinine near 1. Urine eosinophi ls negative. No evidence of obstruction. 2. Hyperkalemia secondary to hyperglycemia. Also received Kayexalate. Improved. 3. Elevated BUN secondary to acute kidney injury as well as steroids. No evidence of GI bleed. 4. Left foot cellulitis with culture positive for staph aureus. Status post amputation of the left third toe. On antibiotics. 5. Benign hypertension. Controlled. 6. Diabetes mellitus. 7. Volume overload. Improved with diuresis and UF. 8. Acute hypoxic respiratory failure secondary to volume overload/?ARDS - improved. 9. Metabolic acidosis secondary to acute kidney injury. Improved. Plan: Maintain oral Lasix. Continue to monitor renal function and urine output.
[2021-03-10 11:44] LABS: Glucose,Whole Blood 228 mg/dL (75-99)
[2021-03-10] MEDS: ACETAMINOPHEN TAB 325 MG TAB PO PRN (12:12)
--- NOTE | 2021-03-10 14:49 | PN ---
PROGRESS NOTE This 61-year-old female patient had wet gangrene of the left foot third toe. We went for ray amputation. Treating with Santyl cream. Patient also had an episode of acute kidney injury. She was on dialysis. Catheter has been removed. Plan is to continue with Santyl cream. Will follow with you. MMMARIA RL / ELYSIAN: [id number] /
--- NOTE | 2021-03-10 15:56 | P.PN ---
Subjective Progress Note Date: 03/10/21 No significant events overnight, patient stressing chair comfortably. She denies any pain, no shortness of breath at rest. She has been afebrile, vital signs of been normal. She is currently on 1-2 L of oxygen, she is participating with physical and occupational therapy daily and has been making significant progress. Creatinine and urine output have been stable for the last 3 days, Justin catheter was removed 4 days ago. Patient has had a prolonged hospitalization with multiple complications initially starting with MSSA soft tissue infection which was then complicated by glomerulonephritis requiring several sessions of hemodialysis. Furthermore her discharge has been delayed due to lack of insurance. Patient will need placement at a nursing facility with the release home care with home oxygen and several new medications. Objective - Vital Signs Vital signs: Vital Signs Temp 98.8 F 03/10/21 08:54 Pulse 97 03/10/21 14:55 Resp 18 03/10/21 14:55 BP 120/57 03/10/21 12:00 Pulse Ox 90 L 03/10/21 12:40 Intake & Output 03/09/21 03/10/21 03/10/21 18:59 06:59 18:59 Intake Total 0 240 900 Output Total 1575 1475 Balance -1575 240 -575 Weight 82.2 kg Intake: Oral 0 240 900 Output: Urine 1575 1475 Uretheral (Méndez) 1475 Other: Voiding Method Indwelling Catheter Indwelling Catheter Indwelling Catheter # Voids 1 # Bowel Movements 1 1 - Exam Gen: awake, alert, in NAD HEENT: normocephalic, atraumatic, oropharynx clear Resp: CVS: good distal perfusion x 4, RRR, no murmurs GI: soft, NTTP, ND : no SPT, no CVAT, méndez catheter is present MSK: 2+pitting edema, no clubbing Neuro: non-focal, moving all extremities - Labs CBC & Chem 7: 03/06/21 08:32 03/10/21 08:11 Labs: Abnormal Lab Results - Last 24 Hours (Table) 03/09/21 03/09/21 03/10/21 Range/Units 16:56 20:16 06:47 Sodium (137-145) mmol/L BUN (7-17) mg/dL Creatinine (0.52-1.04) mg/dL Glucose (74-99) mg/dL POC Glucose (mg/dL) 249 H 233 H 143 H (75-99) mg/dL 03/10/21 03/10/21 Range/Units 08:11 11:40 Sodium 134 L (137-145) mmol/L BUN 111 H* (7-17) mg/dL Creatinine 2.06 H (0.52-1.04) mg/dL Glucose 125 H (74-99) mg/dL POC Glucose (mg/dL) 228 H (75-99) mg/dL Assessment and Plan Plan: #Wet gangrene of the left third toe -Cultures revealed MSSA -Status post amputation -Completed 12 days of IV antibiotics # Acute renal failure -Secondary to focal proliferative glomerulonephritis in the setting of staph aur eus -Nephrology recommendations: UF via iHD start on 02/23, pulled 3L; repeat on 02/24, 02/26-03/04 -Patient has not required any hemodialysis since, Justin catheter has been discontinued -Continue Lasix 60 mg twice a day -Oral sodium bicarb -Creatinine urine output have been stable for the last 3 days -Further recommendations per nephrology # Acute hypoxic respiratory failure -Improving -Secondary to fluid overload, as well as ARDS, and possible HCAP -Currently on 1-2 L of oxygen, no history of home oxygen use -Continue with Lasix, fluid restrictions -Completed broad-spectrum antibiotics for at least 7 days -Assessed for home oxygen -Steroids were restarted and are being titrated down, currently at 60 mg daily # DM 2, uncontrolled - levemir 15 U BID + aspart 3U AC-TID + aspart LD SSI -03/01: levemir 20U BID + aspart 6U AC-TID + aspart LD SSI -03/02-03/04: levemir 25U daily/levemir 30U qHS + aspart 6U AC-TID + aspart LD SSI -03/05-03/08: levemir 30U BID + aspart 10U AC-TID + aspart LD SSI -03/09: levemir 30U daily/levemir 20U qHS + aspart 10U AC-TID + aspart LD SSI (downtitrate with steroids) - follow BS - A1C 8.1 # Hypertension -Exacerbated by steroids -Continue with Norvasc -added hydralazine 25mg TID # Hyperkalemia -Secondary to acute kidney injury and hyperglycemia -Resolved -Dictated BMP, treat accordingly # Metabolic acidosis secondary to acute injury -Resolved Disposition -Patient has had prolonged hospitalization that has exceeded one month. She has complex medical needs, may need placement, home oxygen, and several medications at discharge but has no insurance. Discharge will be pending approval of entrance applications. Follow up with social security benefits interviewer
[2021-03-10 16:29] LABS: Glucose,Whole Blood 355 mg/dL (75-99)
--- NOTE | 2021-03-10 16:46 | PN ---
PROGRESS NOTE DATE OF SERVICE: 03/10/2021 REASON FOR FOLLOWUP: Left foot abscess cellulitis and pneumonia. INTERVAL HISTORY: The patient is afebrile. The patient is currently breathing comfortably on room air. Denies having any chest pain, shortness of breath or cough. No abdominal pain or diarrhea. PHYSICAL EXAMINATION: Blood pressure 120/57, pulse of 97, temperature 98. She is 90% on room air. General description is a middle-aged female lying in bed in no distress. Respiratory system: Unlabored breathing, decreased intensity of breath sounds. No wheeze. Heart S1, S2. Regular rate and rhythm. Abdomen soft, no tenderness. Left foot is currently dressed. No obvious drainage on the dressing. LABS: BUN is 111, creatinine is 2.06. DIAGNOSTIC IMPRESSION AND PLAN: The patient with left foot abscess cellulitis status post amputation of left third toe, in this patient who did have subsequent renal failure and pneumonia. Patient has completed her antibiotic therapy. [facility] Vascular surgery is following the patient closely and no need for antibiotic on discharge. Continue supportive care. MMODL / IJN: [id number] /
[2021-03-10 20:18] LABS: Glucose,Whole Blood 418 mg/dL (75-99)
[2021-03-11 06:27] LABS: Glucose,Whole Blood 111 mg/dL (75-99)
[2021-03-11] MEDS: INSULIN ASPART (NovoLOG) 100 UNIT/ML VIAL SQ SCH ×7 (06:36→21:03)
[2021-03-11] MEDS: INSULIN DETEMIR (LEVEMIR) 100 UNIT/ML SYR SQ SCH ×2 (06:58→21:03)
[2021-03-11] MEDS: FAMOTIDINE 20 MG TAB PO SCH (09:00)
[2021-03-11] MEDS: DULoxetine HCL 30 MG CAPSULE.DR PO SCH (09:00)
[2021-03-11] MEDS: CYANOCOBALAMIN 500 MCG TAB PO SCH (09:00)
[2021-03-11] MEDS: PREGABALIN 75 MG CAP PO SCH ×2 (09:00→21:03)
[2021-03-11] MEDS: methylPREDNISolone SOD SUCCI 125 MG/2 ML VIAL IV SCH (09:00)
[2021-03-11] MEDS: COLLAGENASE 250 UNIT/GM OINTMENT 30 GM TUBE TOPICAL SCH (09:01)
[2021-03-11] MEDS: HYDROCORTISONE 1% CREAM 454 GM JAR TOPICAL SCH ×3 (09:01→21:03)
[2021-03-11] MEDS: FOLIC ACID 1 MG TAB PO SCH (09:01)
[2021-03-11] MEDS: HEPARIN SODIUM,PORCINE/PF 5,000 UNIT/0.5 ML SYRINGE SQ SCH ×3 (09:01→22:58)
[2021-03-11] MEDS: FUROSEMIDE 20 MG TAB PO SCH ×2 (09:01→17:43)
--- NOTE | 2021-03-11 09:14 | P.PN ---
Subjective Patient is seen in follow-up for acute kidney injury. She is being treated for left foot infection and underwent amputation of the third toe. She received multiple treatments of ultrafiltration this admission. Justin catheter was discontinued on March 06. She is on po Lasix. Nonoliguric. Currently on 2 L nasal cannula. Magallanes catheter removed last night. Per nurse, she had some hematuria although the patient denies. Vital signs are stable. General: The patient appeared well nourished and normally developed. HEENT: Head exam is unremarkable. LUNGS: Breath sounds decreased. HEART: Rate and Rhythm are regular. ABDOMEN: Soft, obese. EXTREMITITES: Trace edema. No drainage noted. Objective - Vital Signs Vital signs: Vital Signs Temp 98.7 F 03/11/21 04:00 Pulse 89 03/11/21 04:00 Resp 18 03/11/21 04:00 BP 131/69 03/11/21 04:00 Pulse Ox 90 L 03/11/21 04:00 Intake & Output 03/10/21 03/11/21 03/11/21 18:59 06:59 18:59 Intake Total 1440 240 Output Total 1475 700 300 Balance -35 -460 -300 Weight 80 kg Intake: Oral 1440 240 Output: Urine 1475 700 300 Uretheral (Magallanes) 1475 Other: Voiding Method Indwelling Catheter Indwelling Catheter # Voids 1 2 # Bowel Movements 1 1 - Labs CBC & Chem 7: 03/06/21 08:32 03/10/21 08:11 Labs: Abnormal Lab Results - Last 24 Hours (Table) 03/10/21 03/10/21 03/10/21 Range/Units 08:11 11:40 16:27 Sodium 134 L (137-145) mmol/L BUN 111 H* (7-17) mg/dL Creatinine 2.06 H (0.52-1.04) mg/dL Glucose 125 H (74-99) mg/dL POC Glucose (mg/dL) 228 H 355 H (75-99) mg/dL 03/10/21 03/11/21 Range/Units 20:17 06:26 Sodium (137-145) mmol/L BUN (7-17) mg/dL Creatinine (0.52-1.04) mg/dL Glucose (74-99) mg/dL POC Glucose (mg/dL) 418 H 111 H (75-99) mg/dL Assessment and Plan Plan: Assessment: 1. 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 Kidney biopsy also revealed acute tubular injury as well as diabetic changes. Serologies negative. Renal function stable - creatinine 2.06. Baseline creatinine near 1. Urine eosinophils negative. No evidence of obstruction. 2. Hyperkalemia secondary to hyperglycemia. Also received Kayexalate. Improved. 3. Elevated BUN secondary to acute kidney injury as well as steroids. No evidence of GI bleed. 4. Left foot cellulitis with culture positive for staph aureus. Status post amputation of the left third toe. On antibiotics. 5. Benign hypertension. Controlled. 6. Diabetes mellitus. 7. Volume overload. Improved with diuresis and UF. 8. Acute hypoxic respiratory failure secondary to volume overload/?ARDS - im proved. 9. Metabolic acidosis secondary to acute kidney injury. Improved. Plan: Maintain oral Lasix. Continue to monitor renal function and urine output. Advised the patient to notify the nurse if has gross hematuria.
[2021-03-11 10:15] LABS: Albumin 2.5 g/dL (3.5-5.0); Calcium 8.4 mg/dL (8.4-10.2); Magnesium 1.9 mg/dL (1.6-2.3); Potassium 4.5 mmol/L (3.5-5.1); Total Bilirubin 0.3 mg/dL (0.2-1.3)
[2021-03-11 11:08] LABS: Basophils % (A) 0 %; Eosinophils # (A) 0.1 k/uL (0-0.7); Eosinophils % (A) 2 %; HCT 22.2 % (34.0-46.0); HGB 7.7 gm/dL (11.4-16.0); Lymphocytes # (A) 1.1 k/uL (1.0-4.8); Lymphocytes % (A) 12 %; MCH 27.4 pg (25.0-35.0); MCHC 34.8 g/dL (31.0-37.0); MCV 78.8 fL (80.0-100.0); Mean Platelet Volume 9.5; Monocytes # (A) 0.2 k/uL (0-1.0); Monocytes % (A) 2 %; Neutrophils # (A) 7.3 k/uL (1.3-7.7); Neutrophils % (A) 83 %; Platelet Count 100 k/uL (150-450); RBC 2.82 m/uL (3.80-5.40); RDW 15.2 % (11.5-15.5); WBC 8.7 k/uL (3.8-10.6)
[2021-03-11 12:00] LABS: Glucose,Whole Blood 232 mg/dL (75-99)
[2021-03-11] MEDS: ACETAMINOPHEN TAB 325 MG TAB PO PRN (12:12)
--- NOTE | 2021-03-11 16:50 | P.PN ---
Subjective Progress Note Date: 03/11/21 No significant events overnight, patient has been afebrile, vital signs have been normal. She is being weaned off oxygen, she tolerated room air at rest for several hours later on the day became slightly hypoxic on 89% and was placed back on 2 L. She denies any shortness of breath at rest, no chest pain, no cough, fevers or chills, no abdominal pain, Méndez catheter was removed yesterday, she has had no dysuria, no urgency or hematuria. Overall she continues to improve. Awaiting insurance approval for discharge. Objective - Vital Signs Vital signs: Vital Signs Temp 97.6 F 03/11/21 12:00 Pulse 90 03/11/21 12:00 Resp 17 03/11/21 12:00 BP 111/54 03/11/21 12:00 Pulse Ox 96 03/11/21 12:00 Intake & Output 03/10/21 03/11/21 03/11/21 18:59 06:59 18:59 Intake Total 1440 240 240 Output Total 1475 700 300 Balance -35 -460 -60 Weight 80 kg Intake: Oral 1440 240 240 Output: Urine 1475 700 300 Uretheral (Méndez) 1475 Other: Voiding Method Indwelling Catheter Indwelling Catheter Toilet # Voids 1 2 # Bowel Movements 1 1 - Exam Gen: awake, alert, in NAD HEENT: normocephalic, atraumatic, oropharynx clear Resp: CVS: good distal perfusion x 4, RRR, no murmurs GI: soft, NTTP, ND : no SPT, no CVAT, méndez catheter is present MSK: 2+pitting edema, no clubbing Neuro: non-focal, moving all extremities - Labs CBC & Chem 7: 03/11/21 09:09 03/11/21 09:09 Labs: Abnormal Lab Results - Last 24 Hours (Table) 03/10/21 03/11/21 03/11/21 Range/Units 20:17 06:26 09:09 RBC (3.80-5.40) m/uL Hgb (11.4-16.0) gm/dL Hct (34.0-46.0) % MCV (80.0-100.0) fL Plt Count (150-450) k/uL Sodium 134 L (137-145) mmol/L BUN 108 H* (7-17) mg/dL Creatinine 2.08 H (0.52-1.04) mg/dL Glucose 182 H (74-99) mg/dL POC Glucose (mg/dL) 418 H 111 H (75-99) mg/dL Total Protein 5.0 L (6.3-8.2) g/dL Albumin 2.5 L (3.5-5.0) g/dL 03/11/21 03/11/21 Range/Units 09:09 11:58 RBC 2.82 L (3.80-5.40) m/uL Hgb 7.7 L (11.4-16.0) gm/dL Hct 22.2 L (34.0-46.0) % MCV 78.8 L (80.0-100.0) fL Plt Count 100 L (150-450) k/uL Sodium (137-145) mmol/L BUN (7-17) mg/dL Creatinine (0.52-1.04) mg/dL Glucose (74-99) mg/dL POC Glucose (mg/dL) 232 H (75-99) mg/dL Total Protein (6.3-8.2) g/dL Albumin (3.5-5.0) g/dL Assessment and Plan Plan: # Acute renal failure -Secondary to 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 -Nephrology recommendations: UF via iHD start on 02/23, pulled 3L; repeat on 02/24, 02/26-03/04 -Patient has not required any hemodialysis since, Justin catheter has been discontinued -Continue Lasix per nephrology -Oral sodium bicarb -Creatinine urine output have been stable for the last 3 days -Further recommendations per nephrology #Wet gangrene of the left third toe -Resolved -Cultures revealed MSSA -Status post amputation -Completed 12 days of IV antibiotics # Acute hypoxic respiratory failure -Improving -Secondary to fluid overload, as well as ARDS, and possible HCAP -Currently on 1-2 L of oxygen and has been tolerating longer periods on room air while at rest -Continue with Lasix, fluid restrictions -Completed broad-spectrum antibiotics for at least 7 days -Assess need for home oxygen -Steroids were restarted and are being titrated down, currently at 50 mg daily # DM 2, uncontrolled - levemir 15 U BID + aspart 3U AC-TID + aspart LD SSI -03/01: levemir 20U BID + aspart 6U AC-TID + aspart LD SSI -03/02-03/04: levemir 25U daily/levemir 30U qHS + aspart 6U AC-TID + aspart LD SSI -03/05-03/08: levemir 30U BID + aspart 10U AC-TID + aspart LD SSI -03/09: levemir 30U daily/levemir 20U qHS + aspart 10U AC-TID + aspart LD SSI (downtitrate with steroids) - follow BS - A1C 8.1 # Hypertension -Exacerbated by steroids -Continue with Norvasc -added hydralazine 25mg TID # Hyperkalemia -Secondary to acute kidney injury and hyperglycemia -Resolved -Dictated BMP, treat accordingly # Metabolic acidosis secondary to acute injury -Resolved Disposition -Patient has had prolonged hospitalization that has exceeded one month. She has complex medical needs, may need placement, home oxygen, and several medications at discharge but has no insurance. Discharge will be pending approval of insuranve application. Follow up with foster care social worker
[2021-03-11 17:12] LABS: Glucose,Whole Blood 239 mg/dL (75-99)
--- NOTE | 2021-03-11 18:21 | PN ---
PROGRESS NOTE DATE OF SERVICE: 03/11/2021. REASON FOR FOLLOWUP: Left foot ulcer and cellulitis and pneumonia. INTERVAL HISTORY: The patient is afebrile. The patient is currently breathing comfortably on 3 L nasal cannula. The patient denies having any chest pain or shortness of breath or cough. No abdominal pain or diarrhea. PHYSICAL EXAMINATION: Blood pressure 111/54, pulse of 90, temperature is 97.6. He is 96% on 2 L nasal cannula. General description is a middle-aged female up in the bed in no distress. Respiratory system: Unlabored breathing, clear to auscultation anteriorly. Heart S1, S2. Regular rate and rhythm. Abdomen soft, no tenderness. Extremities: No edema of the feet. LABS: Hemoglobin , white count 8.7, BUN of 108, with creatinine 2.3. DIAGNOSTIC IMPRESSION AND PLAN: This patient with left foot wound and cellulitis, status post amputation of the third toe and pneumonia that has been adequately treated. The patient is currently off antibiotic therapy. Local wound care with Santyl and keep the area off the pressure. Family at the bedside, questions were answered. MMODL / IJN: [id number] /
[2021-03-11 19:53] LABS: Glucose,Whole Blood 358 mg/dL (75-99)
[2021-03-12 06:09] LABS: Glucose,Whole Blood 100 mg/dL (75-99)
[2021-03-12] MEDS: INSULIN ASPART (NovoLOG) 100 UNIT/ML VIAL SQ SCH ×7 (06:11→20:50)
[2021-03-12] MEDS: INSULIN DETEMIR (LEVEMIR) 100 UNIT/ML SYR SQ SCH ×2 (06:23→20:50)
[2021-03-12 08:33] LABS: Calcium 8.7 mg/dL (8.4-10.2); Magnesium 2.1 mg/dL (1.6-2.3); Potassium 4.6 mmol/L (3.5-5.1)
[2021-03-12] MEDS: HEPARIN SODIUM,PORCINE/PF 5,000 UNIT/0.5 ML SYRINGE SQ SCH ×3 (08:54→23:47)
[2021-03-12] MEDS: ACETAMINOPHEN TAB 325 MG TAB PO PRN (08:54)
[2021-03-12] MEDS: PREGABALIN 75 MG CAP PO SCH ×2 (08:54→20:50)
[2021-03-12] MEDS: CYANOCOBALAMIN 500 MCG TAB PO SCH (08:54)
[2021-03-12] MEDS: FOLIC ACID 1 MG TAB PO SCH (08:54)
[2021-03-12] MEDS: FUROSEMIDE 20 MG TAB PO SCH ×2 (08:54→16:51)
[2021-03-12] MEDS: HYDROCORTISONE 1% CREAM 454 GM JAR TOPICAL SCH ×3 (08:55→20:50)
[2021-03-12] MEDS: DULoxetine HCL 30 MG CAPSULE.DR PO SCH (08:55)
[2021-03-12] MEDS: COLLAGENASE 250 UNIT/GM OINTMENT 30 GM TUBE TOPICAL SCH (08:55)
[2021-03-12] MEDS: FAMOTIDINE 20 MG TAB PO SCH (08:55)
[2021-03-12] MEDS ORDERED: predniSONE 50 MG TAB PO SCH (09:00)
--- NOTE | 2021-03-12 09:47 | P.PN ---
Subjective Patient is seen in follow-up for acute kidney injury. She is being treated for left foot infection and underwent amputation of the third toe. She received multiple treatments of ultrafiltration this admission. Justin catheter was discontinued on March 06. She is on po Lasix. Nonoliguric. Currently on 2 L nasal cannula. She did have an episode of hematuria after Magallanes catheter was removed. No further episodes. Vital signs are stable. General: The patient appeared well nourished and normally developed. HEENT: Head exam is unremarkable. LUNGS: Breath sounds decreased. HEART: Rate and Rhythm are regular. ABDOMEN: Soft, obese. EXTREMITITES: Trace edema. No drainage noted. Objective - Vital Signs Vital signs: Vital Signs Temp 97.9 F 03/12/21 08:00 Pulse 68 03/12/21 08:00 Resp 17 03/12/21 08:00 BP 101/53 03/12/21 08:00 Pulse Ox 96 03/12/21 08:00 Intake & Output 03/11/21 03/12/21 03/12/21 18:59 06:59 18:59 Intake Total 240 180 Output Total 900 Balance -660 180 Weight 80 kg Intake: Oral 240 180 Output: Urine 900 Other: Voiding Method Toilet Toilet # Voids 1 - Labs CBC & Chem 7: 03/11/21 09:09 03/12/21 07:26 Labs: Abnormal Lab Results - Last 24 Hours (Table) 03/11/21 03/11/21 03/11/21 Range/Units 09:09 09:09 11:58 RBC 2.82 L (3.80-5.40) m/uL Hgb 7.7 L (11.4-16.0) gm/dL Hct 22.2 L (34.0-46.0) % MCV 78.8 L (80.0-100.0) fL Plt Count 100 L (150-450) k/uL Sodium 134 L (137-145) mmol/L BUN 108 H* (7-17) mg/dL Creatinine 2.08 H (0.52-1.04) mg/dL Glucose 182 H (74-99) mg/dL POC Glucose (mg/dL) 232 H (75-99) mg/dL Total Protein 5.0 L (6.3-8.2) g/dL Albumin 2.5 L (3.5-5.0) g/dL 03/11/21 03/11/21 03/12/21 Range/Units 17:10 19:44 06:07 RBC (3.80-5.40) m/uL Hgb (11.4-16.0) gm/dL Hct (34.0-46.0) % MCV (80.0-100.0) fL Plt Count (150-450) k/uL Sodium (137-145) mmol/L BUN (7-17) mg/dL Creatinine (0.52-1.04) mg/dL Glucose (74-99) mg/dL POC Glucose (mg/dL) 239 H 358 H 100 H (75-99) mg/dL Total Protein (6.3-8.2) g/dL Albumin (3.5-5.0) g/dL 03/12/21 Range/Units 07:26 RBC (3.80-5.40) m/uL Hgb (11.4-16.0) gm/dL Hct (34.0-46.0) % MCV (80.0-100.0) fL Plt Count (150-450) k/uL Sodium (137-145) mmol/L BUN 111 H* (7-17) mg/dL Creatinine 1.82 H (0.52-1.04) mg/dL Glucose (74-99) mg/dL POC Glucose (mg/dL) (75-99) mg/dL Total Protein (6.3-8.2) g/dL Albumin (3.5-5.0) g/dL Assessment and Plan Plan: Assessment: 1. 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 Kidney biopsy also revealed acute tubular injury as well as diabetic changes. Serologies negative. Renal function stable - creatinine 1.82. Baseline creatinine near 1. Urine eosinophils negative. No evidence of obstruction. 2. Hyperkalemia secondary to hyperglycemia. Also received Kayexalate. Improved. 3. Elevated BUN secondary to acute kidney injury as well as steroids. No evidence of GI bleed. 4. Left foot cellulitis with culture positive for staph aureus. Status post amputation of the left third toe. On antibiotics. 5. Benign hypertension. Controlled. 6. Diabetes mellitus. 7. Volume overload. Improved with diuresis and UF. 8. Acute hypoxic respiratory failure secondary to volume overload/?ARDS - improved. 9. Metabolic acidosis secondary to acute kidney injury. Improved. Plan: Maintain oral Lasix. Continue to monitor renal function and urine output.
[2021-03-12 11:59] LABS: Glucose,Whole Blood 134 mg/dL (75-99)
--- NOTE | 2021-03-12 14:31 | P.PN ---
Subjective Progress Note Date: 03/12/21 No significant events overnight, patient has been afebrile, vital signs have been normal. she remains on 2 L of oxygen, complaining of fatigue and shortness of breath with activity, but overall her strength and stamina have been improving last few days. Denies any chest pain, she is tolerating regular diet, catheter has been removed, no difficulty urinating but she has had mild hematuria Objective - Vital Signs Vital signs: Vital Signs Temp 97.9 F 03/12/21 08:00 Pulse 82 03/12/21 11:53 Resp 16 03/12/21 11:53 BP 112/57 03/12/21 11:53 Pulse Ox 99 03/12/21 11:53 Intake & Output 03/11/21 03/12/21 03/12/21 18:59 06:59 18:59 Intake Total 240 1080 Output Total 900 Balance -660 1080 Weight 80 kg Intake: Oral 240 1080 Output: Urine 900 Other: Voiding Method Toilet Toilet # Voids 1 - Exam Gen: awake, alert, in NAD HEENT: normocephalic, atraumatic, oropharynx clear Resp: CVS: good distal perfusion x 4, RRR, no murmurs GI: soft, NTTP, ND : no SPT, no CVAT, méndez catheter is present MSK: 2+pitting edema, no clubbing Neuro: non-focal, moving all extremities - Labs CBC & Chem 7: 03/11/21 09:09 03/12/21 07:26 Labs: Abnormal Lab Results - Last 24 Hours (Table) 03/11/21 03/11/21 03/12/21 Range/Units 17:10 19:44 06:07 BUN (7-17) mg/dL Creatinine (0.52-1.04) mg/dL POC Glucose (mg/dL) 239 H 358 H 100 H (75-99) mg/dL 03/12/21 03/12/21 Range/Units 07:26 11:56 BUN 111 H* (7-17) mg/dL Creatinine 1.82 H (0.52-1.04) mg/dL POC Glucose (mg/dL) 134 H (75-99) mg/dL Assessment and Plan Plan: # Acute renal failure -Secondary to 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 -Nephrology recommendations: UF via iHD start on 02/23, pulled 3L; repeat on 02/24, 02/26-03/04 -Patient has not required any hemodialysis since, Justin catheter has been discontinued -Continue Lasix per nephrology -Oral sodium bicarb -Creatinine urine output have been stable for the last 3 days -Further recommendations per nephrology #Wet gangrene of the left third toe -Resolved -Cultures revealed MSSA -Status post amputation -Completed 12 days of IV antibiotics # Acute hypoxic respiratory failure -Improving -Secondary to fluid overload, as well as ARDS, and possible HCAP -Currently on 2 L of oxygen and has been tolerating longer periods on room air while at rest -Continue with Lasix, fluid restrictions -Completed broad-spectrum antibiotics for at least 7 days -Assess need for home oxygenprior to discharge -Steroids were restarted and are being titrated down, currently at 50 mg daily, will decrease by 10 mg each day # DM 2, uncontrolled - levemir 15 U BID + aspart 3U AC-TID + aspart LD SSI -03/01: levemir 20U BID + aspart 6U AC-TID + aspart LD SSI -03/02-03/04: levemir 25U daily/levemir 30U qHS + aspart 6U AC-TID + aspart LD SSI -03/05-03/08: levemir 30U BID + aspart 10U AC-TID + aspart LD SSI -03/09: levemir 30U daily/levemir 20U qHS + aspart 10U AC-TID + aspart LD SSI (downtitrate with steroids) - follow BS - A1C 8.1 # Hypertension -Exacerbated by steroids -Continue with Norvasc -added hydralazine 25mg TID # Hyperkalemia -Secondary to acute kidney injury and hyperglycemia -Resolved -Dictated BMP, treat accordingly # Metabolic acidosis secondary to acute injury -Resolved Disposition -Patient has had prolonged hospitalization that has exceeded one month. She has complex medical needs, may need placement, home oxygen, and several medications at discharge but has no insurance. Discharge will be pending approval of insuranve application. Follow up with geriatric social work professor
[2021-03-12 16:39] LABS: Glucose,Whole Blood 470 mg/dL (75-99)
--- NOTE | 2021-03-12 18:25 | PN ---
PROGRESS NOTE DATE OF SERVICE: 03/12/2021 REASON FOR FOLLOWUP: Left foot wound. INTERVAL HISTORY: The patient is afebrile. The patient is currently breathing comfortably. The patient denies having any chest pain or cough. No abdominal pain or diarrhea. PHYSICAL EXAMINATION: Blood pressure 115/56, pulse of 75, temperature 97.6. She is 97% on 3 L nasal cannula. General description is a middle-aged female up in the bed in no distress. Respiratory system: Unlabored breathing, decreased breath sounds in the bases. No wheeze. Heart S1, S2. Regular rate and rhythm. Abdomen soft, no tenderness. Left foot is currently dressed. No obvious drainage on the dressing. LABS: BUN ( ), creatinine is 1.82. DIAGNOSTIC IMPRESSION AND PLAN: Patient with left foot abscess and cellulitis with amputation of left second toe. Culture with MSSA. Subsequently pneumonia and renal failure. We will continue the patient on antibiotic therapy. Local care to continue with Santyl and close outpatient followup. MMODL / IJN: [id number] /
[2021-03-12 19:57] VITALS: RESP 16
[2021-03-12 20:30] LABS: Glucose,Whole Blood 404 mg/dL (75-99)
[2021-03-12] MEDS ORDERED: INSULIN ASPART (NovoLOG) 100 UNIT/ML VIAL SQ ONE (21:03)
[2021-03-12 23:37] VITALS: PULSE 88
[2021-03-13 05:54] LABS: Glucose,Whole Blood 120 mg/dL (75-99)
[2021-03-13] MEDS: INSULIN ASPART (NovoLOG) 100 UNIT/ML VIAL SQ SCH ×5 (05:55→17:45)
[2021-03-13] MEDS: INSULIN DETEMIR (LEVEMIR) 100 UNIT/ML SYR SQ SCH (06:31)
[2021-03-13 08:16] LABS: Calcium 8.9 mg/dL (8.4-10.2); Magnesium 2.2 mg/dL (1.6-2.3); Potassium 4.6 mmol/L (3.5-5.1)
[2021-03-13] MEDS: FUROSEMIDE 20 MG TAB PO SCH ×2 (08:43→17:44)
[2021-03-13] MEDS: FAMOTIDINE 20 MG TAB PO SCH (08:44)
[2021-03-13] MEDS: CYANOCOBALAMIN 500 MCG TAB PO SCH (08:44)
[2021-03-13] MEDS: PREGABALIN 75 MG CAP PO SCH (08:44)
[2021-03-13] MEDS: FOLIC ACID 1 MG TAB PO SCH (08:44)
[2021-03-13] MEDS: HEPARIN SODIUM,PORCINE/PF 5,000 UNIT/0.5 ML SYRINGE SQ SCH (08:44)
[2021-03-13] MEDS: DULoxetine HCL 30 MG CAPSULE.DR PO SCH (08:44)
[2021-03-13] MEDS ORDERED: predniSONE 20 MG TAB PO SCH (09:00)
--- NOTE | 2021-03-13 11:02 | P.PN ---
Subjective Progress Note Date: 03/13/21 Pt doing well today on 2L NC, sitting in bed comfortably. Oxygen 95%, Lasix 60mg PO BID with KVO fluids. BP stable, HRs in NSR. BS are uncontrolled 100- 470 in last 24 hours; detemir 30U Daily/detemir 20U qHS + aspart 10U AC-TID + aspart LD SSI. Objective - Vital Signs Vital signs: Vital Signs Temp 98 F 03/12/21 23:37 Pulse 88 03/13/21 02:49 Resp 16 03/13/21 02:49 BP 117/68 03/13/21 02:49 Pulse Ox 95 03/13/21 02:49 Intake & Output 03/12/21 03/13/21 03/13/21 18:59 06:59 18:59 Intake Total 1200 240 Output Total 400 Balance 1200 -160 Weight 79.3 kg Intake: Oral 1200 240 Output: Urine 400 Other: Voiding Method Toilet # Voids 2 1 # Bowel Movements 1 1 - Exam Gen: awake, alert HEENT: normocephalic, atraumatic, good hearing acuity, moist mucous membranes Resp: impaired air exchange, in moderate distress from dyspnea, diffuse crackles in posterior lung hair CVS: good distal perfusion x 4, RRR, no murmurs GI: soft, NTTP, ND : no SPT, no CVAT, méndez catheter is present MSK: 2+pitting edema, no clubbing Neuro: non-focal, moving all extremities Psych: cooperative, euthymic mood - Labs CBC & Chem 7: 03/11/21 09:09 03/13/21 07:26 Labs: Abnormal Lab Results - Last 24 Hours (Table) 03/12/21 03/12/21 03/12/21 Range/Units 11:56 16:33 20:28 BUN (7-17) mg/dL Creatinine (0.52-1.04) mg/dL Glucose (74-99) mg/dL POC Glucose (mg/dL) 134 H 470 H 404 H (75-99) mg/dL 03/13/21 03/13/21 Range/Units 05:49 07:26 BUN 105 H* (7-17) mg/dL Creatinine 1.82 H (0.52-1.04) mg/dL Glucose 113 H (74-99) mg/dL POC Glucose (mg/dL) 120 H (75-99) mg/dL Assessment and Plan Assessment: Acute renal failure due to 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 Metabolic acidosis -Nephrology recommendations: UF via iHD to start on 02/23, pulled 3L; repeat on 02/24, 02/26-03/04 -Lasix 60mg IV BID, transition to oral lasix on 03/10 -Oral sodium bicarb Acute hypoxic respiratory failure due to fluid overload, worsening ARDS secondary to HCAP - add back solumedrol, 60 mg every 6 hours 03/07, tapered to 60 q12 03/09, tapered to 60 daily 03/12, tapered to prednisone 50mg daily 03/13, tapered to prednisone 40mg daily - Pulm Recs - continue with diuresis, lasix - daptomycin and zosyn with improving WBC as of 02/23 -Narrowed to Zosyn on 02/24; d/c'd abx on 03/09 - Nasal cannula at 2L, wean as able DM 2, uncontrolled - levemir 15 U BID + aspart 3U AC-TID + aspart LD SSI -03/01: levemir 20U BID + aspart 6U AC-TID + aspart LD SSI -03/02-03/04: levemir 25U daily/levemir 30U qHS + aspart 6U AC-TID + aspart LD SSI -03/05-03/08: levemir 30U BID + aspart 10U AC-TID + aspart LD SSI -03/09-03/13: levemir 30U daily/levemir 20U qHS + aspart 10U AC-TID + aspart LD SSI (downtitrate with steroids) - follow BS - A1C 8.1 Hypertension -Exacerbated by steroids -Continue with Norvasc -added hydralazine 25mg TID Vitamin B 6 deficiency - B complex replacement Wet gangrene of the left third toe, MSSA, resolved -Status post ray amputation -Vascular surgery recommendations -Infectious disease recommendations -Daptomycin completed #12 days -CK, LFTs level for toxicity monitoring -Zosyn completed on 03/09 Anemia, stable -Patient's hemoglobin was normal on arrival. -I expect this is secondary to recurrent blood draws from prolonged hospital stay -Follow CBC -No signs of bleeding Hyperkalemia Hypocalcemia Metabolic acidosis Severe frontal headache, resolved Severe sepsis without septic shock
[2021-03-13 11:07] VITALS: BP 117/55; TEMP 97.5
[2021-03-13 11:40] LABS: Glucose,Whole Blood 113 mg/dL (75-99)
--- NOTE | 2021-03-13 14:18 | P.DS ---
Providers Date of admission: 02/01/21 12:30 Expected date of discharge: 03/13/21 Attending physician: Evelia Bay MD Consults: 02/01/21 03:25 Consult Physician Routine Consulting Provider: Jeff Pleitez Consult Reason/Comments: DM, puncture wound foot, cellulitis Do you want consulting provider notified?: Yes, Notify in am 02/01/21 10:46 Consult Physician Routine Consulting Provider: Kimani Phillips Consult Reason/Comments: Severe persistent headache Do you want consulting provider notified?: Yes 02/06/21 11:02 Consult Physician Routine Consulting Provider: Arnulfo Hammonds Consult Reason/Comments: left foot abscess, i&d Do you want consulting provider notified?: Yes 02/10/21 13:35 Consult Physician Routine Consulting Provider: Mey Mendez Consult Reason/Comments: THIEN Do you want consulting provider notified?: Yes 02/12/21 16:29 Consult Physician Routine Consulting Provider: Chris Corbett Consult Reason/Comments: hypoxia with infiltrate Do you want consulting provider notified?: Yes 02/20/21 14:12 Consult Physician Routine Consulting Provider: Darrian Moe Consult Reason/Comments: pulm edema Do you want consulting provider notified?: Yes Primary care physician: Stated None Hospital Course: Wet gangrene of the left third toe, MSSA, resolved Patient was initially admitted with wet gangrene of the left third toe. Underwent surgery via vascular consultation and is s/p ray amputation on 02/06. Cultures from that operation grew MSSA. Patient completed 12 day course of daptomycin with guidance from ID consultation. 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 Nephrology was consulted, and workup included renal biopsy on 02/16 for suspected acute nephritis. Biopsy returned positive for focal proliferative glomerulonephritis secondary to patient's known staph infection. Patient ultimately required permacath placement by vascular as well as iHD for UF which started on 02/23 and continued through 03/04. However, her kidney function was able to recover to the point that she no longer required dialysis on discharge. She did also require lasix gtt, then IV lasix for help with volume control, and was transitioned to PO lasix on discharge after having lost over 20kg of water weight that she developed in the hospital. Her new baseline Cr was 1.82; her BUN remained elevated at 105; this will need to be followed up on discharge. Acute hypoxic respiratory failure due to fluid overload, worsening ARDS secondary to HCAP As a result of kidney failure, patient developed fluid overload, as well as overlying healthcare associated pneumonia with suspected ARDS. Patient was started on solumedrol for this as well as zosyn for pneumonia coverage. She required monitoring in the ICU from 02/20 to 03/05, where she was treated with abx, steroids, and diuretics for above mentioned issues. Her peak oxygen requirement was BIPAP dependent, and by the time of transfer to the floor, patient was tolerating 5L NC. After several more days on the floor, patient was weaned to room air. Patient was still on steroids on day of discharge, and after a prolonged duration of use while hospitalized, she was prescribed a prednisone taper for home. She completed course of zosyn while in house and no abx prescribed on discharge. She was converted to PO lasix twice daily for home dosing. DM 2, uncontrolled Patient's sugars were largely uncontrolled while on steroids. A1c was 8.1%. See below for changes made to insulin during hospitalization. On discharge, she was sent home on levemir 30U daily/levemir 20U qHS + aspart 10U AC-TID, and resumption of her home metformin. Pt will require follow up with PCP to ensure appropriate glucose levels while titrating down insulin. Pt and laser cutter made aware of this. Hypertension -Discharged on new prescription for amlodipine 10mg I spent 53 minutes coordinating this complex discharge. Assessment: See same day progress note Patient Condition at Discharge: Good Plan - Discharge Summary Discharge Rx Participant: No New Discharge Prescriptions: New Insulin Detemir (Levemir) [Levemir] 10 unit SQ DAILY@0700 #1 dispenser Insulin Detemir (Levemir) [Levemir] 20 unit SQ HS #6 ml Pregabalin [Lyrica] 75 mg PO BID 30 Days #60 cap predniSONE [Deltasone] See Taper PO DAILY #15 tab Furosemide [Lasix] 60 mg PO BID@0900,1600 #60 tab Insulin Detemir (Levemir) [Levemir] 30 unit SQ DAILY@0700 #9 ml INSULIN ASPART (NovoLOG) [NovoLOG (formulary)] 10 unit SQ AC-TID #9 ml Continue Nortriptyline [Pamelor] 50 mg PO HS Linagliptin [Tradjenta] 5 mg PO DAILY DULoxetine HCL [Cymbalta] 30 mg PO DAILY Discontinued Terbinafine HCl [LamISIL] 250 mg PO DAILY Insulin Glargine [Lantus Vial] 85 unit SQ HS Discharge Medication List DULoxetine HCL [Cymbalta] 30 mg PO DAILY 02/09/21 [History] Linagliptin [Tradjenta] 5 mg PO DAILY 02/09/21 [History] Nortriptyline [Pamelor] 50 mg PO HS 02/09/21 [History] Insulin Detemir (Levemir) [Levemir] 10 unit SQ DAILY@0700 #1 dispenser 02/10/21 [Rx] Pregabalin [Lyrica] 75 mg PO BID 30 Days #60 cap 02/10/21 [Rx] Furosemide [Lasix] 60 mg PO BID@0900,1600 #60 tab 03/13/21 [Rx] INSULIN ASPART (NovoLOG) [NovoLOG (formulary)] 10 unit SQ AC-TID #9 ml 03/13/21 [Rx] Insulin Detemir (Levemir) [Levemir] 20 unit SQ HS #6 ml 03/13/21 [Rx] Insulin Detemir (Levemir) [Levemir] 30 unit SQ DAILY@0700 #9 ml 03/13/21 [Rx] predniSONE [Deltasone] See Taper PO DAILY #15 tab 03/13/21 [Rx] Follow up Appointment(s)/Referral(s): Mavis Eller NPC [REFERRING] - 1-2 Days [facility], [NON-STAFF] - 1-2 Days (Can only come out if you are established with a PCP and have been to the 1st appt. ) [facility] [[facility] - 1-2 Days Mey Mendez MD [STAFF PHYSICIAN] - 1 Week Jeff Pleitez MD [STAFF PHYSICIAN] - 2 Weeks Arnulfo Hammonds MD [STAFF PHYSICIAN] - 2 Weeks Activity/Diet/Wound Care/Special Instructions: Activity: As tolerated. Take breaks as needed. Diet: Heart healthy and carb consistent diet. Avoid salts, or foods with hidden salts such as canned or boxed foods and frozen dinners. Extra salt makes your heart work harder and traps the fluid in your body for longer. Special Instructions: Take all of your medications as directed and remember to keep all of your doctor's appointments and follow-up as needed. It is very important to take the antibiotics as prescribed without missing any doses and complete entire course. Thank you for allowing us to participate in your care, it was truly a pleasure having you for our patient!!! Discharge Disposition: HOME SELF-CARE
[2021-03-14 06:14] LABS: % Iron Saturation 32.42 (12.00-45.00)
--- NOTE | 2021-03-14 11:32 | PN ---
PROGRESS NOTE Patient is seen for followup for acute kidney injury, mostly post-infectious GN and an element of ATN with severe volume overload. Patient has been off of dialysis. She is maintained on oral diuretics and doing much better than ten days ago. On examination today, blood pressure is 117/55, heart rate 86 per minute. She is afebrile. EXAMINATION OF THE HEART: S1 and S2. EXAMINATION OF LUNGS: Decreased breath sounds at the bases. Abdomen is soft, non-tender, obese. EXAMINATION OF LOWER EXTREMITIES: Edema 1+ bilaterally. Significant improvement in edema. POLICY ADVISOR EXAM: Grossly intact. Labs show sodium 137, potassium 4.6, chloride 102, BUN 104, serum creatinine 1.8. ASSESSMENT: 1. Acute kidney injury, status post kidney biopsy. Etiology acute post-infectious GN and ATN, currently improved, status post aggressive ultrafiltration. Justin catheter removed on March 06. Patient has not needed further ultrafiltration. 2. Hyperkalemia associated with hyperglycemia, now improved. 3. Disproportionately elevated BUN secondary to steroids and renal failure. No evidence of GI bleed. 4. Left foot cellulitis with culture positive for Staph aureus, status post amputation of left third toe. 5. Volume overload, improved with diuresis and ultrafiltration. 6. Metabolic acidosis associated with acute kidney injury, now resolved. PLAN: Continue with current dose of Lasix. Avoid nephrotoxic agents. Repeat labs in a.m. MMODL / IJN: [id number] /
== END 2021-03-13 19:45 | disposition home or self-care (01) | DRG 853 ==
LOC: EC 17:36 → 1SOBS 21:32 → 6NMEDSUR 22:35 → 1SOBS 02-01 07:18 → OBSVTOIN 02-01 12:30 → 5NMEDONC 02-01 14:27 → 4SSUR 02-12 13:45 → 2SICU 02-20 02:45 → 3SCARD 03-03 21:22
PROVIDERS: ADMIT Internal Medicine; ATTEND Internal Medicine
PROC: 3E0234Z Introduction of Serum, Toxoid and Vaccine into Muscle, Percutaneous Approach (ICD-10-PCS; 2021-01-31)
PROC: 0Y6U0Z0 Detachment at Left 3rd Toe, Complete, Open Approach (ICD-10-PCS; principal; 2021-02-06 21:20)
PROC: 05HF33Z Insertion of Infusion Device into Left Cephalic Vein, Percutaneous Approach (ICD-10-PCS; 2021-02-14)
PROC: 0TB13ZX Excision of Left Kidney, Percutaneous Approach, Diagnostic (ICD-10-PCS; 2021-02-16)
PROC: 5A09557 Assistance with Respiratory Ventilation, Greater than 96 Consecutive Hours, Continuous Positive Airway Pressure (ICD-10-PCS; 2021-02-19)
PROC: 02HV33Z Insertion of Infusion Device into Superior Vena Cava, Percutaneous Approach (ICD-10-PCS; 2021-02-20)
PROC: 06HY33Z Insertion of Infusion Device into Lower Vein, Percutaneous Approach (ICD-10-PCS; 2021-02-23)
PROC: 5A1D70Z Performance of Urinary Filtration, Intermittent, Less than 6 Hours Per Day (ICD-10-PCS; 2021-02-23)
PROC: 06HY33Z Insertion of Infusion Device into Lower Vein, Percutaneous Approach (ICD-10-PCS; 2021-03-01)
PROC: 06PYX3Z Removal of Infusion Device from Lower Vein, External Approach (ICD-10-PCS; 2021-03-06)
DX: A41.01 Sepsis due to Methicillin susceptible Staphylococcus aureus (principal); N17.0 Acute kidney failure with tubular necrosis; J80 Acute respiratory distress syndrome; J18.9 Pneumonia, unspecified organism; E87.2 Acidosis; E11.52 Type 2 diabetes mellitus with diabetic peripheral angiopathy with gangrene; I96 Gangrene, not elsewhere classified; J90 Pleural effusion, not elsewhere classified; L03.116 Cellulitis of left lower limb; N10 Acute pyelonephritis; E87.1 Hypo-osmolality and hyponatremia; J98.11 Atelectasis; T82.41XA Breakdown (mechanical) of vascular dialysis catheter, initial encounter; E11.649 Type 2 diabetes mellitus with hypoglycemia without coma; I27.20 Pulmonary hypertension, unspecified; E83.51 Hypocalcemia; D63.8 Anemia in other chronic diseases classified elsewhere; E11.42 Type 2 diabetes mellitus with diabetic polyneuropathy; E11.621 Type 2 diabetes mellitus with foot ulcer; E11.21 Type 2 diabetes mellitus with diabetic nephropathy; E11.65 Type 2 diabetes mellitus with hyperglycemia; R65.20 Severe sepsis without septic shock; L97.529 Non-pressure chronic ulcer of other part of left foot with unspecified severity; Z79.4 Long term (current) use of insulin; Z23 Encounter for immunization; Z20.822 Contact with and (suspected) exposure to COVID-19; S91.332A Puncture wound without foreign body, left foot, initial encounter; M54.81 Occipital neuralgia; E87.5 Hyperkalemia; N08 Glomerular disorders in diseases classified elsewhere; I10 Essential (primary) hypertension; Y95 Nosocomial condition; I07.1 Rheumatic tricuspid insufficiency; R32 Unspecified urinary incontinence; R13.10 Dysphagia, unspecified; T38.0X5A Adverse effect of glucocorticoids and synthetic analogues, initial encounter; T36.95XA Adverse effect of unspecified systemic antibiotic, initial encounter; M77.30 Calcaneal spur, unspecified foot; M81.0 Age-related osteoporosis without current pathological fracture; F41.9 Anxiety disorder, unspecified; R23.3 Spontaneous ecchymoses; R21 Rash and other nonspecific skin eruption; H91.90 Unspecified hearing loss, unspecified ear; E66.9 Obesity, unspecified; Z68.30 Body mass index [BMI] 30.0-30.9, adult; Z79.84 Long term (current) use of oral hypoglycemic drugs; Z79.83 Long term (current) use of bisphosphonates; Z79.899 Other long term (current) drug therapy; Z97.4 Presence of external hearing-aid; Z86.73 Personal history of transient ischemic attack (TIA), and cerebral infarction without residual deficits; Z87.81 Personal history of (healed) traumatic fracture; Z87.39 Personal history of other diseases of the musculoskeletal system and connective tissue; Z87.19 Personal history of other diseases of the digestive system; Z87.42 Personal history of other diseases of the female genital tract; Z98.890 Other specified postprocedural states; Z71.3 Dietary counseling and surveillance; W26.8XXA Contact with other sharp object(s), not elsewhere classified, initial encounter; Y71.2 Prosthetic and other implants, materials and accessory cardiovascular devices associated with adverse incidents
CPT/HCPCS: 36410; 36415; 36573; 36600; 70450; 71045; 71250; 74220; 76380; 76604; 76770; 76937; 77012; 78582; 80048; 80053; 80074; 80202; 81001; 82164; 82550; 82565; 82570; 82607; 82728; 82746; 82805; 83036; 83516; 83540; 83550; 83605; 83615; 83735; 83880; 83921; 84100; 84132; 84145; 84156; 84165; 84207; 84484; 84550; 85025; 85027; 85379; 85610; 85652; 85730; 86038; 86039; 86140; 86160; 86162; 86225; 86255; 86334; 86335; 86480; 86694; 86695; 86696; 86706; 86850; 86900; 86901; 87040; 87070; 87075; 87077; 87186; 87205; 87390; 87449; 87521; 87635; 90471; 90715; 90935; 93005; 93306; 93308; 93970; 94640; 94660; 94760; 99285